=== PATIENT | female | born 1950 | race Caucasian/White ===

== ENCOUNTER 2020-01-12 15:46 | Outpatient (REF) | payer MEDICARE, MEDICAID, SELFPAY ==
[2020-01-12 17:35] LABS: Anion Gap 14 (12-20); Blood Urea Nitrogen 19 mg/dL (9-16); Calcium 9.5 mg/dL (8.4-10.2); Carbon Dioxide 27 mmol/L (22-29); Chloride 104 mmol/L (96-108); Estimated Glomerular Filt Rate 33; Phosphorus 3.7 mg/dL (2.7-4.5); Potassium 4.6 mmol/l (3.3-5.1); Sodium 140 mmol/L (135-145)
[2020-01-12 18:50] LABS: Renal w Reflex Lab Use Only Order verified
== END 2020-01-12 15:47 | disposition home or self-care (01) ==
LOC: HO.LAB 15:46
PROVIDERS: PCP Internal Medicine; Visit Provider Internal Medicine Nephrology
DX: Q61.3 Polycystic kidney, unspecified (principal); N18.30 Chronic kidney disease, stage 3 unspecified
CPT/HCPCS: 80051; 82310; 82565; 84100; 84520

== ENCOUNTER 2020-02-22 09:39 | Outpatient (REF) | payer MEDICARE, MEDICAID, SELFPAY ==
[2020-02-22 11:30] LABS: Hemoglobin 10.9 g/dl (12.0-16.0); Mean Corpuscular HGB Conc 32.1 g/dl (31.0-35.0); Mean Corpuscular Hemoglobin 31.4 pg (27.0-33.0); Mean Platelet Volume 9.2 fL (9.4-12.3); Platelet Count 234 X10*3/uL (160-400); Red Blood Count 3.47 X10*6/uL (4.20-5.50); Red Cell Distribution Width 11.9 % (11.0-16.0); White Blood Count 4.4 X10*3/uL (4.8-10.8)
[2020-02-22 12:01] LABS: Alanine Aminotransferase < 6 U/L (0-31); Albumin Level 4.1 g/dL (3.5-5.0); Alkaline Phosphatase 58 U/L (39-117); Anion Gap 10 (12-20); Aspartate Amino Transferase 20 U/L (5-31); Bilirubin Total 0.3 mg/dL (0.0-1.0); Blood Urea Nitrogen 17 mg/dL (9-16); Calcium 8.7 mg/dL (8.4-10.2); Carbon Dioxide 30 mmol/L (22-29); Chloride 105 mmol/L (96-108); Cholesterol 166 mg/dL; Estimated Glomerular Filt Rate 38; Glucose Fasting 87 mg/dL (60-99); HDL Cholesterol 69 mg/dL; Iron 78 mcg/dL (30-160); LDL Cholesterol Calculated 87 mg/dl; Percent Iron Saturation 23 % (15-50); Potassium 4.3 mmol/l (3.3-5.1); Sodium 141 mmol/L (135-145); Total Iron Binding Capacity 343 mcg/dL (228-428); Total Protein 6.3 g/dL (6.5-8.0); Triglycerides 51 mg/dL; Unsaturated Iron Binding 265 ug/dL
[2020-02-22 12:15] LABS: Thyroid Stimulating Hormone 0.68 uIU/mL (0.32-4.0)
== END 2020-02-22 09:40 | disposition home or self-care (01) ==
LOC: HO.HMGCLDS 09:39
PROVIDERS: PCP Internal Medicine; Visit Provider Internal Medicine
DX: E04.1 Nontoxic single thyroid nodule (principal); E78.5 Hyperlipidemia, unspecified; N18.30 Chronic kidney disease, stage 3 unspecified; Z00.00 Encounter for general adult medical examination without abnormal findings
CPT/HCPCS: 36415; 80053; 80061; 83540; 84443; 85027

== ENCOUNTER 2020-03-22 11:38 | Outpatient (REF) | payer MEDICARE, MEDICAID, SELFPAY ==
--- NOTE | 2020-03-22 11:43 | US_ITS ---
EXAMINATION: US THYROID CLINICAL INFORMATION: Nontoxic single thyroid nodule. COMPARISON: Ultrasound soft tissue head/neck thyroid dated 03/31/2012 and 02/27/2011. TECHNIQUE: Linear transducer davalos-scale and color Doppler examination with attention to the region of the thyroid. FINDINGS: SIZE: Measurements of the thyroid lobes and nodules are given in sagittal, anteroposterior and transverse dimensions respectively. Right Thyroid Lobe: 5.0 x 1.6 x 1.6 cm, volume 6.7 mL. Previously 4.6 x 1.7 x 1.2 cm, volume 4.9 mL. Parenchyma: The gland echotexture is heterogeneous. Thyroid vascularity is increased. Left Thyroid Lobe: 4.6 x 1.4 x 1.5 cm, volume 5.1 mL. Previously 4.3 x 1.4 x 1.5 cm, volume 4.7 mL. Parenchyma: The gland echotexture is heterogeneous. Thyroid vascularity is increased. Isthmus: 0.2 cm in maximum AP dimension. Previously 0.2 cm. RIGHT THYROID LOBE: There are 3 nodules seen. 1. Location: Superior. Size: 0.3 x 0.2 x 0.2 cm. This nodule is new. Nodule characteristics: Hypoechoic and cystic, smooth margin, no calcification and no intranodular flow. 2. Location: Middle/lateral. Size: 0.5 x 0.3 x 0.4 cm. This nodule is new. Nodule characteristics: Hypoechoic and heterogeneous, smooth margin, no calcification and positive intranodular flow. 3. Location: Middle. Size: 1.9 x 1.4 x 1.1 cm. Previous: 1.4 x 0.7 x 0.8 cm. Nodule characteristics: Hypoechoic and heterogeneous, irregular lobulated margins, calcification and positive intranodular flow. ISTHMUS: No nodules. LEFT THYROID LOBE: There are 2 nodules seen. 1. Location: Superior/lateral. Size: 0.5 x 0.3 x 0.3 cm. Previous: 0.3 x 0.2 x 0.2 cm. Nodule characteristics: Hypoechoic and heterogeneous, smooth margin, no calcification and positive intranodular flow. 2. Location: Superior/lateral. Size: 0.6 x 0.4 x 0.5 cm. Previous: 0.6 x 0.3 x 0.5 cm. Nodule characteristics: Slightly hypoechoic and heterogeneous, smooth margin, no calcification and positive intranodular flow. NODES: There is a right cervical lymph node inferior to the thyroid gland. This is normal in size measuring 0.8 x 0.7 x 0.3 cm in sagittal AP and transverse dimension. The cortex may be slightly thickened. This demonstrates both cortical and hilar flow. US/US thyroid IMPRESSION: Heterogeneous hypervascular thyroid gland. This is a new finding from 2013 exam and thyroiditis and Graves' disease should be considered. There is interval increase in size in the dominant nodule in the mid right lobe. This has suspicious ultrasound features and ultrasound-guided fine-needle aspiration is recommended. There is also a suspicious appearing right cervical lymph node. There are 2 small newly appreciated right thyroid nodules. Small left thyroid nodules are stable.
== END 2020-03-22 11:39 | disposition home or self-care (01) ==
LOC: HO.HMGCX 11:38
PROVIDERS: PCP Internal Medicine; Visit Provider Internal Medicine
DX: E04.1 Nontoxic single thyroid nodule (principal)
CPT/HCPCS: 76536

== ENCOUNTER 2020-05-02 15:22 | Outpatient (REF) | payer MEDICARE, MEDICAID, SELFPAY ==
--- NOTE | ~2020-05-02 | MM_ITS ---
EXAMINATION: MM SCREENING DIGITAL BREAST TOMOSYNTHESIS, BILATERAL CLINICAL INFORMATION: Screening. Asymptomatic. Benign left stereotactic biopsy 12/14/2014 (Core biopsies of breast with foci of columnar cell change with several associated microcalcifications). The lifetime risk of breast cancer based on the Tyrer-Cuzick Model is 8%. COMPARISON: Mammography: 06/26/2017, 12/14/2014, 12/02/2014. TECHNIQUE: Digital breast tomosynthesis is performed in both the craniocaudal and mediolateral oblique views along with computer-aided detection (CAD). Synthesized 2D images are generated from the tomosynthesis. FINDINGS: There are scattered areas of fibroglandular density (ACR BI-RADS breast composition Category b). There are no significant masses, abnormal calcifications, or other abnormalities. Parenchymal pattern is similar to prior studies. No developing density. There is biopsy clip marker again seen mid upper outer quadrant left breast. There are some new coarse calcifications posterior upper outer left breast. The axilla and skin contours are unremarkable. MM/MM tomosynthesis screening BI IMPRESSION: No mammographic evidence of malignancy. ASSESSMENT: BI-RADS 2: Benign RECOMMENDATION: Routine annual mammography screening. This patient's information was entered into a reminder system with a target due date for their next mammogram.
[2020-05-02 17:00] LABS: Anion Gap 11 (12-20); Blood Urea Nitrogen 18 mg/dL (9-16); Calcium 9.2 mg/dL (8.4-10.2); Carbon Dioxide 30 mmol/L (22-29); Chloride 105 mmol/L (96-108); Estimated Glomerular Filt Rate 40; Phosphorus 3.6 mg/dL (2.7-4.5); Potassium 3.9 mmol/L (3.3-5.1); Sodium 142 mmol/L (135-145)
[2020-05-02 18:03] LABS: Renal w Reflex Lab Use Only Order verified
== END 2020-05-02 15:23 | disposition home or self-care (01) ==
LOC: HO.MAMMO 15:22
PROVIDERS: Absent Provider Internal Medicine Nephrology; PCP Internal Medicine; Visit Provider Internal Medicine
DX: N18.30 Chronic kidney disease, stage 3 unspecified (principal); Q61.3 Polycystic kidney, unspecified; Z12.31 Encounter for screening mammogram for malignant neoplasm of breast
CPT/HCPCS: 36415; 77063; 77067; 80051; 82310; 82565; 84100; 84520

== ENCOUNTER → 2020-06-06 10:19 | Outpatient (BNVA) | payer MEDICARE, MEDICAID, SELFPAY | PROVIDERS: PCP Internal Medicine; Referring Provider Internal Medicine; Visit Provider Internal Medicine | DX: Z13.89 Encounter for screening for other disorder (principal) | CPT/HCPCS: Q3014 ==

== ENCOUNTER 2020-08-18 08:36 | Outpatient (REF) | payer MEDICARE, MEDICAID, SELFPAY ==
[2020-08-18 09:29] LABS: Calcium 9.6 mg/dL (8.4-10.2); Estimated Glomerular Filt Rate 36
[2020-08-18 09:55] LABS: Free T4 (Free Thyroxine) 0.86 ng/dL (0.71-1.85); Thyroid Stimulating Hormone 0.63 uIU/mL (0.32-4.0); Vitamin D 25-OH Total 18.9 ng/mL (>30)
[2020-08-19 15:57] LABS: Calcium (PTHI) 9.7 mg/dL (8.6-10.4); PTHI 107 pg/mL (14-64)
== END 2020-08-18 08:37 | disposition home or self-care (01) ==
LOC: HO.LAB 08:36
PROVIDERS: PCP Internal Medicine; Visit Provider Internal Medicine
DX: E04.2 Nontoxic multinodular goiter (principal); E55.9 Vitamin D deficiency, unspecified
CPT/HCPCS: 36415; 82040; 82306; 82310; 82565; 83970; 84439; 84443

== ENCOUNTER 2020-08-23 12:59 | Outpatient (REF) | payer MEDICARE, MEDICAID, SELFPAY ==
--- NOTE | ~2020-08-23 | US_ITS ---
EXAMINATION: THYROID FINE-NEEDLE ASPIRATION CLINICAL INFORMATION: Right thyroid nodule COMPARISON: Previous thyroid ultrasound March 2020 TECHNIQUE: Procedure and risks and benefits including bleeding and infection were discussed with the patient and informed consent was obtained. The right neck was prepped and draped in the usual sterile fashion. The skin and soft tissues were anesthetized with 1% lidocaine plain. Using ultrasound guidance and a 25-gauge needle, 3 25-gauge FNA specimens from the dominant nodule in the mid right lobe of the thyroid gland were obtained. FINDINGS: There is a 1.5 x 1.5 x 0.8 cm nodule in the mid right lobe that was targeted for fine-needle aspiration. US/US guided fine needle asp IMPRESSION: Ultrasound-guided right thyroid nodule fine-needle aspiration.
[2020-08-23] MEDS: Lidocaine HCl 1 % MPF 5 ML VIAL SUBCUT (14:23)
== END 2020-08-23 13:00 | disposition home or self-care (01) ==
LOC: HO.US 12:59
PROVIDERS: Visit Provider Internal Medicine
DX: E04.2 Nontoxic multinodular goiter (principal)
CPT/HCPCS: 10005; 88172; 88173; 88177

== ENCOUNTER → 2020-10-06 14:37 | Outpatient (BNVA) | payer MEDICARE, MEDICAID, SELFPAY | PROVIDERS: PCP Internal Medicine; Visit Provider Internal Medicine | DX: E04.2 Nontoxic multinodular goiter (principal) | CPT/HCPCS: Q3014 ==

== ENCOUNTER 2020-12-21 13:32 | Outpatient (REF) | payer MEDICARE, MEDICAID, SELFPAY ==
[2020-12-21 16:33] LABS: MANUAL DIFF FLAG NO
[2020-12-21 16:37] LABS: Basophils Percent Auto 0.9 % (0-2); Eosinophils Absolute Auto 0.2 X10*3/uL (0.0-0.4); Eosinophils Percent Auto 3.9 % (0-4); Hematocrit 35.2 % (37-47); Hemoglobin 11.6 g/dl (12.0-16.0); Imm Gran Abs Auto 0.02 X10*3/uL (0.00-0.03); Imm Gran Pct Auto 0.4 % (0.0-0.4); Lymphocytes Absolute Auto 0.9 X10*3/uL (1.2-4.9); Mean Corpuscular Hemoglobin 31.7 pg (27.0-33.0); Mean Corpuscular Volume 96.2 fL (80-98); Mean Platelet Volume 10.1 fL (9.4-12.3); Monocytes Absolute Auto 0.4 X10*3/uL (0.1-1.2); Monocytes Percent Auto 8.5 % (2-11); Neutrophils Absolute Auto 3.1 X10*3/uL (2.0-8.3); Neutrophils Percent Auto 66.3 % (45-73); Platelet Count 251 X10*3/uL (160-400); Red Blood Count 3.66 X10*6/uL (4.20-5.50); Red Cell Distribution Width 11.9 % (11.0-16.0); White Blood Count 4.6 X10*3/uL (4.8-10.8)
== END 2020-12-21 13:33 | disposition home or self-care (01) ==
LOC: HO.HMGCLDS 13:32
PROVIDERS: PCP Internal Medicine; Visit Provider Internal Medicine
DX: D64.9 Anemia, unspecified (principal)
CPT/HCPCS: 36415; 85025

== ENCOUNTER 2021-04-26 15:18 | Outpatient (REF) | payer MEDICARE, MEDICAID, SELFPAY ==
[2021-04-26 15:41] LABS: Binax Internal Control QC Valid; Binax Now Covid-19 Ag Negative (Negative)
== END 2021-04-26 15:19 | disposition home or self-care (01) ==
LOC: HO.HMGCLDS 15:18
PROVIDERS: Visit Provider Physician Assistant
DX: Z13.89 Encounter for screening for other disorder (principal)

== ENCOUNTER → 2021-05-04 14:44 | Outpatient (BNVA) | payer MEDICARE, MEDICAID, SELFPAY | PROVIDERS: PCP Internal Medicine; Visit Provider Psychiatry & Neurology Neurology | DX: G20 Parkinson's disease (principal); G47.10 Hypersomnia, unspecified; Z79.899 Other long term (current) drug therapy | CPT/HCPCS: 99212 ==

== ENCOUNTER 2021-05-17 13:20 | Outpatient (REF) | payer MEDICARE, MEDICAID, SELFPAY ==
--- NOTE | ~2021-05-17 | XR_ITS ---
EXAMINATION: XR FOOT, RIGHT CLINICAL INFORMATION: Contusion COMPARISON: None TECHNIQUE: AP, lateral, and oblique views of the right foot. FINDINGS: The bones are osteopenic. Bone alignment is normal. No fracture or dislocation is seen. The joint spaces are normal. There are small calcaneal spurs. XR/XR foot RT min 3V IMPRESSION: No fracture or dislocation seen.
== END 2021-05-17 13:21 | disposition home or self-care (01) ==
LOC: HO.HMGCX 13:20
PROVIDERS: Visit Provider Internal Medicine
DX: S90.31XA Contusion of right foot, initial encounter (principal)
CPT/HCPCS: 73630

== ENCOUNTER 2021-05-31 | Outpatient (REF) | payer MEDICARE, MEDICAID, SELFPAY ==
--- NOTE | ~2021-05-31 | FL_ITS ---
EXAMINATION: MODIFIED BARIUM SWALLOW CLINICAL INFORMATION: Dysphagia. COMPARISON: None TECHNIQUE: Routine modified barium swallow was performed under lateral fluoroscopy in presence of speech therapist. FINDINGS: Following oral administration of various consistencies of food coated with barium in presence of speech therapist under lateral fluoroscopy there is normal propagation of food from the oral cavity through the pharynx into esophagus without any evidence of obstruction, narrowing or stricture. No laryngeal penetration or aspiration seen. FLUOROSCOPY TIME: 1.2 minutes. DOSE AREA PRODUCT: 0.592 uGy-m2 (microgray-meter squared). FL/FL barium swallow modified IMPRESSION: Unremarkable modified barium swallow. Correlate with speech therapy results.
--- NOTE | 2021-06-01 10:27 | MHC.SL.IMP ---
Date of Plan of Treatment: 05/31/21 Onset of Symptoms/Illness: 04/02/21 Date Treatment Started: 05/31/21 Admitting Diagnosis: Comorbidities: Anemia Back pain Chronic fatigue COPD Depression Fibromyalgia GERD Hyperlipemia IBS Parkinson?s disease Sciatica Stage 3 chronic kidney disease Thyroid nodule Tremor Hyperparathyroidism Polycystic kidney disease PTSD Sleep d/o Uterine cx Vitamin D deficiency SURGICAL HX: Colonoscopy Carpal tunnel syndrome Left breast biopsy Sinus surgery Total abdominal hysterectomy Cholecystecomy Primary Speech & Language Diagnosis: R13.12 Oropharyngeal Phase Dysphagia Secondary Speech & Language Diagnosis: R49.0 Dysphonia Reason for Today's Visit: 45288 Modified Barium Swallow Study Pre-evaluation Dietary Consistencies: Regular Pre-evaluation Liquid Consistency: Thin Pre-evaluation Medication Administration: Whole with Liquid Medical History: [place], [place] Modified Barium Swallow Study Fluoroscopic Evaluation of Swallowing Function CPT Code 12693 Evaluation Year: 2021 Reason for Study: Patient reports globus sensation and coughing when eating. Referring Physician: Lien Booker DO Evaluating Clinician: Suma Bentley MA, CCC-CUSTOMER SERVICE DISPATCHER Study Number: 1 Patient Name: Lien Jerry Status: Outpatient, Ambulatory/Assisted Age: 70 Gender: Female MEDICAL HISTORY: Year of Onset or Diagnosis: 2021 Comorbidities: Anemia Back pain Chronic fatigue COPD Depression Fibromyalgia GERD Hyperlipemia IBS Parkinson?s disease Sciatica Stage 3 chronic kidney disease Thyroid nodule Tremor Hyperparathyroidism Polycystic kidney disease PTSD Sleep d/o Uterine cx Vitamin D deficiency SURGICAL HX: Colonoscopy Carpal tunnel syndrome Left breast biopsy Sinus surgery Total abdominal hysterectomy Cholecystecomy Current (pre-evaluation) Intake/Diet: Route: PO Diet Grade: Regular Liquid Consistencies: Thin Pre-Study Functional Oral Intake Scale (FOIS): 7- Total oral intake with no restrictions Pain: Unable to assess reported at time of study, SUBJECTIVE: Patient is a 70 year old female referred by Lien Booker DO from [facility] for a modified barium swallow study. Patient?s history is significant for COPD, fibromyalgia, GERD, thyroid nodule, and Parkinson?s disease. Patient reports globus sensation with consumption of solids, as well as coughing episodes. Patient reported that she is able to breathe during these episodes, but must drink water to get the food down. Patient reports a sore throat and intermittent pain when swallowing. Patient did not rate this pain and stated that it was ?minimal.? She reports onset of dysphagia 2 months ago. Oral Motor Exam Mouth Occlusion: Normal Oral-Facial Teeth Characteristics: Intact/Normal Oral-Facial Lip Pucker Description: Normal Oral-Facial Puff Cheeks Description: Normal Tongue Size: Normal Tongue Excursion Description: Normal Tongue Range of Movement Description: Normal Tongue Speed of Movement Description: Normal Tongue Strength of Movement (against opposing pressure): Normal Is patient able to manage secretions?: Yes Food and Liquid Trials: Oral Impairment: Lip Closure: 0=No labial escape Oral Impairment: Tongue Control During Bolus Hold: 1=Escape to lateral buccal cavity/floor of mouth (FOM) Oral Impairment: Bolus Preparation/Mastication: 1=Slow prolonged chewing/mashing with complete re-collection Oral Impairment: Bolus Transport/Lingual Motion: 2=Slowed tongue motion Oral Impairment: Oral Residue: 2=Residue collection on oral structures Oral Impairment:Initiation of Pharyngeal Swallow: 3=Bolus head in pyriforms Pharyngeal Impairment: Soft Palate Elevation: 0=No bolus between soft palate (SP)/pharyngeal wall (PW) Pharyngeal Impairment: Laryngeal Elevation: 1=Partial thyroid cartilage/arytenoids to epiglottic petiole movement Pharyngeal Impairment: Anterior Hyoid Excursion: 1=Partial anterior movement Pharyngeal Impairment: Epiglottic Movement: 0=Complete inversion Pharyngeal Impairment: Laryngeal Vestibular Closure:: 0=Complete: no air/contrast in laryngeal vestibule Pharyngeal Impairment: Pharyngeal Stripping Wave: 1=Present: diminished Pharyngeal Impairment: Pharyngeal Contraction: Did not test Pharyngeal Impairment: Pharyngoesophageal Segment Openin=Complete distension and complete duration: no obstruction of flow Pharyngeal Impairment: Tongue Base (TB) Retraction: 3=Wide column of contrast/air between TB and posterior PW Pharyngeal Impairment: Pharyngeal Residue: 1=Trace residue within or on pharyngeal structures Pharyngeal Impairment: Esophageal Clearance Upright Position: Did not test Impressions and Recommendations Clinical Observations: OBJECTIVE: Time-out: performed at 02:45 Evaluation Start: 02:30; Stop: 02:40 Patient Positioning: Seated 70-90 degrees Viewing Planes: LATERAL ONLY Contrast: MBSImP? Standardized Protocol using commercially prepared, standardized Barium viscosities, including: Varibar? THIN LIQUID (40% w/v, <15 cps) , 1/2 Shortbread Cookie (1 x1 x.25 ) MBSImP ID: [id number] MBSImP Results: Lip closure for intraoral bolus containment resulted in no labial escape. Tongue control during bolus hold allowed bolus escape to the lateral buccal cavity/floor of mouth. Bolus preparation and mastication resulted in slow, prolonged chewing/mashing but with complete re-collection. Bolus transport/lingual motion was with slowed tongue motion. Oral residue was a collection on oral structures. Initiation of the pharyngeal swallow occurred when the bolus head was in the pyriform sinuses. Soft palate elevation resulted in no bolus between the soft palate and the pharyngeal wall. Laryngeal elevation was decreased, with partial superior movement of the thyroid cartilage/partial approximation of the arytenoids to the epiglottic petiole. Anterior hyoid excursion demonstrated partial anterior movement. Epiglottic movement resulted in complete inversion. Laryngeal vestibular closure was complete, as indicated by no air or contrast within the laryngeal vestibule at the height of the swallow. Pharyngeal stripping wave was present, but diminished. Pharyngeal contraction could not be determined due to logistical reasons not related to physiologic impairment. Pharyngoesophageal segment opening was completely distended for complete duration with no obstruction of bolus flow. Tongue base retraction allowed a wide column of contrast or air between the retracted tongue base and the posterior pharyngeal wall. Pharyngeal residue was a trace within or on pharyngeal structures. Esophageal clearance in the upright position could not be assessed due to logistical reasons not related to physiologic impairment. Oral Impairment Score: 9 Pharyngeal Impairment Score: 6 (absence of score, component 13) Esophageal Impairment Score: --- (absence of score, component 17) Laryngeal Penetration and Aspiration: Neither penetration nor aspiration was observed in today's study with Flakita Thin. ASSESSMENT: This exam was conducted by a multidisciplinary team which included a speech pathologist, radiologist, and biological lab technician. Patient was seated upright at 90 degrees for lateral view only. Patient trialed the following liquid and solid consistencies: 5 mL thin liquid barium, individual cup sip with bolus hold thin liquid barium, consecutive cup sips thin liquid barium, pureed solid (mixture applesauce with barium paste), ground solid (mixture chicken salad with barium paste), and regular solid (Raven Doone cookie coated with barium paste). Patient displayed good labial seal with no interlabial escape of bolus. Trace amount of liquid escaped to the floor of mouth, but did not escape posteriorly prior to swallow trigger. Patient demonstrated slow, prolonged mastication and slowed posterior tongue movement. There was mild oral residue on tongue blade and tongue base, which cleared with subsequent dry swallow. Pharyngeal swallow trigger was delayed, initiated as bolus head reached pyriform sinuses. No nasopharyngeal reflux. Partial laryngeal elevation and partial anterior hyoid movement. Epiglottic inversion was complete. Laryngeal vestibular closure was complete. No evidence of aspiration or penetration with solids and liquids during this exam. Reduced tongue base retraction. Trace residue on tongue base and posterior pharyngeal wall, otherwise good pharyngeal clearance. No obstruction of flow through pharyngoesophageal segment opening. Liquid Intake Recommendation: Thin Liquid Intake Strategies: Small Sips Dietary Recommendations: Regular Medication Administration: Whole with Liquid Please contact the pharmacy regarding appropriate crushable or liquid drug formulations that are available whenever modified delivery is recommended. Compensatory Strategies Recommended: Sitting Upright (90 deg) Double Swallow Small Bites and Sips Alternate Liquids/Solids Rate of Ingestion Change Supervision during eating and or drinking: Intermittent Supervision Recommendation for Speech Therapy: NA:Typical Evaluation PLAN: Intake Recommendations: Route: PO Diet Grade: Regular Liquid Consistencies: Thin Post-Study Functional Oral Intake Scale (FOIS): 7- Total oral intake with no restrictions No evidence of aspiration or penetration during this exam. Noted mild oral and pharyngeal residue, which did clear with dry swallow. Recommend patient to resume unmodified textures REGULAR solids and THIN liquids with the following strategies: -small bites -moisten food with sauce/gravy as needed -alternate bite of food with sip of liquid -dry swallow between bites as needed -upright 90 degree position while eating and drinking Given progressive nature of underlying neurological condition, Parkinson's disease, recommend patient to continue monitoring dysphagia. Therapy Recommendations: Therapy will be discontinued Prognosis for Improvement: The prognosis for the patient to meet nutritional needs by mouth is excellent based on degree of impairment. Breakfast Bar Attendant Clinician/Clinical Fellow: No Supervisory Statement: N/A Speech Language Pathologist: Suma Bentley M.A., CCC-CUSTOMER SERVICE DISPATCHER
--- NOTE | 2021-06-01 10:30 | MHC.SL.IMP ---
Date of Plan of Treatment: 05/31/21 Onset of Symptoms/Illness: 04/02/21 Date Treatment Started: 05/31/21 Admitting Diagnosis: Comorbidities: Anemia Back pain Chronic fatigue COPD Depression Fibromyalgia GERD Hyperlipemia IBS Parkinson?s disease Sciatica Stage 3 chronic kidney disease Thyroid nodule Tremor Hyperparathyroidism Polycystic kidney disease PTSD Sleep d/o Uterine cx Vitamin D deficiency SURGICAL HX: Colonoscopy Carpal tunnel syndrome Left breast biopsy Sinus surgery Total abdominal hysterectomy Cholecystecomy Primary Speech & Language Diagnosis: R13.12 Oropharyngeal Phase Dysphagia Secondary Speech & Language Diagnosis: R49.0 Dysphonia Reason for Today's Visit: 34419 Modified Barium Swallow Study Pre-evaluation Dietary Consistencies: Regular Pre-evaluation Liquid Consistency: Thin Pre-evaluation Medication Administration: Whole with Liquid Medical History: [place], [place] Modified Barium Swallow Study Fluoroscopic Evaluation of Swallowing Function CPT Code 87301 Evaluation Year: 2021 Reason for Study: Patient reports globus sensation and coughing when eating. Referring Physician: Lien Booker DO Evaluating Clinician: Suma Bentley MA, CCC-TRUCKLOAD OWNER OPERATOR Study Number: 1 Patient Name: Lien Jerry Status: Outpatient, Ambulatory/Assisted Age: 70 Gender: Female MEDICAL HISTORY: Year of Onset or Diagnosis: 2021 Comorbidities: Anemia Back pain Chronic fatigue COPD Depression Fibromyalgia GERD Hyperlipemia IBS Parkinson?s disease Sciatica Stage 3 chronic kidney disease Thyroid nodule Tremor Hyperparathyroidism Polycystic kidney disease PTSD Sleep d/o Uterine cx Vitamin D deficiency SURGICAL HX: Colonoscopy Carpal tunnel syndrome Left breast biopsy Sinus surgery Total abdominal hysterectomy Cholecystecomy Current (pre-evaluation) Intake/Diet: Route: PO Diet Grade: Regular Liquid Consistencies: Thin Pre-Study Functional Oral Intake Scale (FOIS): 7- Total oral intake with no restrictions Pain: Unable to assess reported at time of study, SUBJECTIVE: Patient is a 70 year old female referred by Lien Booker DO from [facility] Endocr[facility]ology for a modified barium swallow study. Patient?s history is significant for COPD, fibromyalgia, GERD, thyroid nodule, and Parkinson?s disease. Patient reports globus sensation with consumption of solids, as well as coughing episodes. Patient reported that she is able to breathe during these episodes, but must drink water to get the food down. Patient reports a sore throat and intermittent pain when swallowing. Patient did not rate this pain and stated that it was ?minimal.? She reports onset of dysphagia 2 months ago. Oral Motor Exam Mouth Occlusion: Normal Oral-Facial Teeth Characteristics: Intact/Normal Oral-Facial Lip Pucker Description: Normal Oral-Facial Puff Cheeks Description: Normal Tongue Size: Normal Tongue Excursion Description: Normal Tongue Range of Movement Description: Normal Tongue Speed of Movement Description: Normal Tongue Strength of Movement (against opposing pressure): Normal Is patient able to manage secretions?: Yes Food and Liquid Trials: Oral Impairment: Lip Closure: 0=No labial escape Oral Impairment: Tongue Control During Bolus Hold: 1=Escape to lateral buccal cavity/floor of mouth (FOM) Oral Impairment: Bolus Preparation/Mastication: 1=Slow prolonged chewing/mashing with complete re-collection Oral Impairment: Bolus Transport/Lingual Motion: 2=Slowed tongue motion Oral Impairment: Oral Residue: 2=Residue collection on oral structures Oral Impairment:Initiation of Pharyngeal Swallow: 3=Bolus head in pyriforms Pharyngeal Impairment: Soft Palate Elevation: 0=No bolus between soft palate (SP)/pharyngeal wall (PW) Pharyngeal Impairment: Laryngeal Elevation: 1=Partial thyroid cartilage/arytenoids to epiglottic petiole movement Pharyngeal Impairment: Anterior Hyoid Excursion: 1=Partial anterior movement Pharyngeal Impairment: Epiglottic Movement: 0=Complete inversion Pharyngeal Impairment: Laryngeal Vestibular Closure:: 0=Complete: no air/contrast in laryngeal vestibule Pharyngeal Impairment: Pharyngeal Stripping Wave: 1=Present: diminished Pharyngeal Impairment: Pharyngeal Contraction: Did not test Pharyngeal Impairment: Pharyngoesophageal Segment Openin=Complete distension and complete duration: no obstruction of flow Pharyngeal Impairment: Tongue Base (TB) Retraction: 3=Wide column of contrast/air between TB and posterior PW Pharyngeal Impairment: Pharyngeal Residue: 1=Trace residue within or on pharyngeal structures Pharyngeal Impairment: Esophageal Clearance Upright Position: Did not test Impressions and Recommendations Clinical Observations: OBJECTIVE: Time-out: performed at 02:45 Evaluation Start: 02:30; Stop: 02:40 Patient Positioning: Seated 70-90 degrees Viewing Planes: LATERAL ONLY Contrast: MBSImP? Standardized Protocol using commercially prepared, standardized Barium viscosities, including: Varibar? THIN LIQUID (40% w/v, <15 cps) , 1/2 Shortbread Cookie (1 x1 x.25 ) MBSImP ID: [id number] MBSImP Results: Lip closure for intraoral bolus containment resulted in no labial escape. Tongue control during bolus hold allowed bolus escape to the lateral buccal cavity/floor of mouth. Bolus preparation and mastication resulted in slow, prolonged chewing/mashing but with complete re-collection. Bolus transport/lingual motion was with slowed tongue motion. Oral residue was a collection on oral structures. Initiation of the pharyngeal swallow occurred when the bolus head was in the pyriform sinuses. Soft palate elevation resulted in no bolus between the soft palate and the pharyngeal wall. Laryngeal elevation was decreased, with partial superior movement of the thyroid cartilage/partial approximation of the arytenoids to the epiglottic petiole. Anterior hyoid excursion demonstrated partial anterior movement. Epiglottic movement resulted in complete inversion. Laryngeal vestibular closure was complete, as indicated by no air or contrast within the laryngeal vestibule at the height of the swallow. Pharyngeal stripping wave was present, but diminished. Pharyngeal contraction could not be determined due to logistical reasons not related to physiologic impairment. Pharyngoesophageal segment opening was completely distended for complete duration with no obstruction of bolus flow. Tongue base retraction allowed a wide column of contrast or air between the retracted tongue base and the posterior pharyngeal wall. Pharyngeal residue was a trace within or on pharyngeal structures. Esophageal clearance in the upright position could not be assessed due to logistical reasons not related to physiologic impairment. Oral Impairment Score: 9 Pharyngeal Impairment Score: 6 (absence of score, component 13) Esophageal Impairment Score: --- (absence of score, component 17) Laryngeal Penetration and Aspiration: Neither penetration nor aspiration was observed in today's study with Flakita Thin. ASSESSMENT: This exam was conducted by a multidisciplinary team which included a speech pathologist, radiologist, and satellite dish technician. Patient was seated upright at 90 degrees for lateral view only. Patient trialed the following liquid and solid consistencies: 5 mL thin liquid barium, individual cup sip with bolus hold thin liquid barium, consecutive cup sips thin liquid barium, pureed solid (mixture applesauce with barium paste), ground solid (mixture chicken salad with barium paste), and regular solid (Raven Doone cookie coated with barium paste). Patient displayed good labial seal with no interlabial escape of bolus. Trace amount of liquid escaped to the floor of mouth, but did not escape posteriorly prior to swallow trigger. Patient demonstrated slow, prolonged mastication and slowed posterior tongue movement. There was mild oral residue on tongue blade and tongue base, which cleared with subsequent dry swallow. Pharyngeal swallow trigger was delayed, initiated as bolus head reached pyriform sinuses. No nasopharyngeal reflux. Partial laryngeal elevation and partial anterior hyoid movement. Epiglottic inversion was complete. Laryngeal vestibular closure was complete. No evidence of aspiration or penetration with solids and liquids during this exam. Reduced tongue base retraction. Trace residue on tongue base and posterior pharyngeal wall, otherwise good pharyngeal clearance. No obstruction of flow through pharyngoesophageal segment opening. Liquid Intake Recommendation: Thin Liquid Intake Strategies: Small Sips Dietary Recommendations: Regular Medication Administration: Whole with Liquid Please contact the pharmacy regarding appropriate crushable or liquid drug formulations that are available whenever modified delivery is recommended. Compensatory Strategies Recommended: Sitting Upright (90 deg) Double Swallow Small Bites and Sips Alternate Liquids/Solids Rate of Ingestion Change Supervision during eating and or drinking: Intermittent Supervision Recommendation for Speech Therapy: NA:Typical Evaluation Text Comment: PLAN: Intake Recommendations: Route: PO Diet Grade: Regular Liquid Consistencies: Thin Post-Study Functional Oral Intake Scale (FOIS): 7- Total oral intake with no restrictions No evidence of aspiration or penetration during this exam. Noted mild oral and pharyngeal residue, which did clear with dry swallow. Recommend patient to resume unmodified textures REGULAR solids and THIN liquids with the following strategies: -small bites -moisten food with sauce/gravy as needed -alternate bite of food with sip of liquid -dry swallow between bites as needed -upright 90 degree position while eating and drinking Given progressive nature of underlying neurological condition, Parkinson's disease, recommend patient to continue monitoring dysphagia. Therapy Recommendations: Therapy will be discontinued Prognosis for Improvement: The prognosis for the patient to meet nutritional needs by mouth is excellent based on degree of impairment. Clinician - Supplemental, Miscellaneous Communication: It is important to note MBSS objective studies are snapshots in time and Patient function might vary with factors such as time of day or concomitant medical conditions. For this reason, the final treatment plan for this patient should rest with their medical care team. Additional recommendations should be considered with the totality of the Patient in mind. Thank for the opportunity to participate in the care of this patient. If you have any questions about the content of this report, please contact the [facility] at [facility]. Education: Education regarding findings from today's study and plans for therapy were provided to Patient only through Verbal Instruction. Understanding was expressed by the Patient only. Counseling Services Director Clinician/Clinical Fellow: No Supervisory Statement: N/A Speech Language Pathologist: Suma Bentley M.A., [facility]-TRUCKLOAD OWNER OPERATOR
== END 2021-05-31 00:01 ==
LOC: HO.XRAY
PROVIDERS: Visit Provider Internal Medicine
DX: R13.10 Dysphagia, unspecified (principal)
CPT/HCPCS: 74230; 92611

== ENCOUNTER → 2021-06-05 11:38 | Outpatient (BNVA) | payer MEDICARE, MEDICAID, SELFPAY | PROVIDERS: PCP Internal Medicine; Visit Provider Internal Medicine | DX: E04.2 Nontoxic multinodular goiter (principal); E21.3 Hyperparathyroidism, unspecified; E55.9 Vitamin D deficiency, unspecified; R13.10 Dysphagia, unspecified | CPT/HCPCS: Q3014 ==

== ENCOUNTER 2021-06-23 09:38 | Day surgery (SDC) | payer MEDICARE, MEDICAID, SELFPAY ==
[2021-06-19 12:44] VITALS: BMI 24.2
--- NOTE | 2021-06-22 09:55 | P.CONAN_ITS ---
Documented by User: Dorcas Edwards NP 06/22/21 09:59 HPI - Anesthesia Eval Consult details Narrative: 70yo F for Upper Endoscopy and Colonoscopy PMFSH Active Problems Active Problems: All Active Problems (Updated 05/17/21 @ 13:16 by Dennis De Oliveira MD) Vitamin D deficiency (Acute) Environmental allergies (Acute) Contusion of foot, right (Acute) Sleep disorder (Acute) Anemia (Acute) COPD (chronic obstructive pulmonary disease) (Acute) CKD (chronic kidney disease), stage III (Acute) Family history of breast cancer in mother (Acute) PTSD (post-traumatic stress disorder) (Acute) Vitamin D deficiency (Acute) Hyperparathyroidism (Acute) Family history of malignant neoplasm of endometrium (Acute) Multinodular thyroid (Acute) Parkinsons disease (Acute) Depression (Acute) Hyperlipemia (Acute) Back pain (Acute) Past Medical History Medical History Anemia Back pain Chronic fatigue CKD (chronic kidney disease), stage III COPD (chronic obstructive pulmonary disease) Depression Family history of breast cancer in mother Family history of malignant neoplasm of endometrium Fibromyalgia GERD (gastroesophageal reflux disease) Hyperlipemia Hyperparathyroidism IBS (irritable bowel syndrome) Multinodular thyroid Parkinsons disease Polycystic kidney disease PTSD (post-traumatic stress disorder) Sciatica of left side Sciatica of right side Sleep disorder Stage 3 chronic kidney disease Thyroid nodule Tremor Uterine cancer Vitamin D deficiency Family History Family History Father COPD (chronic obstructive pulmonary disease) Mother Arteriosclerosis Breast cancer, Onset Age: 80 Sister Diabetes mellitus Breast cancer, Onset Age: 70 Brother Bone cancer History of pituitary cancer Surgical History Surgical History (Updated 06/19/21 @ 12:38 by Sho To RN) H/O colonoscopy History of carpal tunnel syndrome History of esophagogastroduodenoscopy (EGD) History of left breast biopsy History of sinus surgery History of total abdominal hysterectomy Hx laparoscopic cholecystectomy Hx of cholecystectomy Social History Social History Household Members: None Housing: House Alcohol intake: never Patient Tobacco Use Status: Never used Tobacco Advance Directives: No (unknown) Advance Directives Information Provided: Yes (brochure mailed) Advance Directives on File: No service: No Current occupational status: employed Meds Allergies Allergy/AdvReac Type Severity Reaction Status Date / Time tomato [TOMATO] Allergy Severe ANAPHYLAXIS Verified 06/19/21 12:45 Sulfa (Sulfonamide Allergy Intermediate TRAVIS davis Verified 06/19/21 12:45 Antibiotics) albuterol Allergy Unknown Unknown Verified 06/05/21 11:55 metoclopramide [Reglan] Allergy Unknown Unknown Verified 06/05/21 11:55 Home Medications Medication Instructions Recorded Confirmed Last Taken Type bupropion HCl 300 mg 24 hr tablet, 300 mg PO QAM 02/22/20 06/19/21 06/23/21 History extended release clonazepam 1 mg tablet 1 mg PO TID 02/22/20 06/19/21 06/23/21 History gabapentin 100 mg capsule 100 mg PO BEDTIME 02/22/20 06/19/21 Unknown History pneumoc 13-ani conj-dip cr(PF) 0.5 ml IM 02/22/20 06/05/21 Unknown History mL IM syringe paroxetine HCl 30 mg tablet 30 mg PO DAILY 10/06/20 06/19/21 06/23/21 History ipratropium bromide 17 1 puff INHALATION QID 06/19/21 06/19/21 Unknown History mcg/actuation HFA aerosol inhaler (Atrovent HFA) Exam Exam Date and Time: June 22, 2021 0955 Height,Weight and Vital Signs: Height 5 ft 6 in Weight 68.039 kg Assessment and Plan Assessment Anesthesia Assessment: Chart Reviewed Documented by User: Edward Boone MD 06/23/21 10:00 [facility] Past Medical History Medical History Anemia Back pain Chronic fatigue CKD (chronic kidney disease), stage III COPD (chronic obstructive pulmonary disease) Depression Family history of breast cancer in mother Family history of malignant neoplasm of endometrium Fibromyalgia GERD (gastroesophageal reflux disease) Hyperlipemia Hyperparathyroidism IBS (irritable bowel syndrome) Multinodular thyroid Parkinsons disease Polycystic kidney disease PTSD (post-traumatic stress disorder) Sciatica of left side Sciatica of right side Sleep disorder Stage 3 chronic kidney disease Thyroid nodule Tremor Uterine cancer Vitamin D deficiency Family History Family History Father COPD (chronic obstructive pulmonary disease) Mother Arteriosclerosis Breast cancer, Onset Age: 80 Sister Diabetes mellitus Breast cancer, Onset Age: 70 Brother Bone cancer History of pituitary cancer Family history of problems with anesthesia: No Surgical History Surgical History (Updated 06/19/21 @ 12:38 by Sho To RN) H/O colonoscopy History of carpal tunnel syndrome History of esophagogastroduodenoscopy (EGD) History of left breast biopsy History of sinus surgery History of total abdominal hysterectomy Hx laparoscopic cholecystectomy Hx of cholecystectomy History of Problems with Anesthesia: No Social History Social History Household Members: None Housing: House Alcohol intake: never Patient Tobacco Use Status: Never used Tobacco Advance Directives: No (unknown) Advance Directives Information Provided: Yes (brochure mailed) Advance Directives on File: No service: No Current occupational status: employed Meds Allergies Allergy/AdvReac Type Severity Reaction Status Date / Time tomato [TOMATO] Allergy Severe ANAPHYLAXIS Verified 06/19/21 12:45 Sulfa (Sulfonamide Allergy Intermediate shaky, ROBLES Verified 06/19/21 12:45 Antibiotics) albuterol Allergy Unknown Unknown Verified 06/05/21 11:55 metoclopramide [Reglan] Allergy Unknown Unknown Verified 06/05/21 11:55 Home Medications Medication Instructions Recorded Confirmed Last Taken Type bupropion HCl 300 mg 24 hr tablet, 300 mg PO QAM 02/22/20 06/19/21 06/23/21 History extended release clonazepam 1 mg tablet 1 mg PO TID 02/22/20 06/19/21 06/23/21 History gabapentin 100 mg capsule 100 mg PO BEDTIME 02/22/20 06/19/21 Unknown History pneumoc 13-ani conj-dip cr(PF) 0.5 ml IM 02/22/20 06/05/21 Unknown History mL IM syringe paroxetine HCl 30 mg tablet 30 mg PO DAILY 10/06/20 06/19/21 06/23/21 History ipratropium bromide 17 1 puff INHALATION QID 06/19/21 06/19/21 Unknown History mcg/actuation HFA aerosol inhaler (Atrovent HFA) Exam Airway Mallampati Class: II TM Dist: >3cm Neck ROM: Full Assessment and Plan Assessment Anesthesia Assessment: Anesthesia Plan Discussed Final Anesthetic Review Family History of Problems with Anesthesia: No History of Problems with Anesthesia: No NPO: Yes ASA Class: III Final Preanesthetic Review: No Changes in Pt Med Stat, Meds/Allgs Chart Reviewed, Consent Obtained/Reviewed and Anes Risks/Benef Reviewed Patient Risk: Intermediate Procedure Risk: Low Anesthetic Plan Anesthetic Plan: MAC: Disposition: Standard PACU
[2021-06-23 09:54] VITALS: BP 105/77; PULSE 88; RESP 18; TEMP 36.6; O2SAT 96
[2021-06-23 10:04] LABS: Hematocrit 38.9 % (37.0-47.0); Hemoglobin 12.8 g/dl (12.0-16.0); Mean Corpuscular HGB Conc 32.9 g/dl (31.0-35.0); Mean Corpuscular Hemoglobin 31.4 pg (27.0-33.0); Mean Corpuscular Volume 95.6 fL (80.0-98.0); Platelet Count 246 X10*3/uL (160-400); Red Blood Count 4.07 X10*6/uL (4.20-5.50); Red Cell Distribution Width 12.2 % (11.0-16.0); White Blood Count 5.9 X10*3/uL (4.8-10.8)
[2021-06-23 10:11] LABS: INTERNATIONAL NORM RATIO 1.1 (0.9-1.1); Prothrombin Time 12.2 SEC (9.9-13.0)
[2021-06-23] MEDS: Lactated Ringers 1,000 ML 100 ML IVCONT (10:12)
[2021-06-23 10:15] LABS: Anion Gap 13 (12-20); Blood Urea Nitrogen 11 mg/dL (9-16); Calcium 9.6 mg/dL (8.4-10.2); Carbon Dioxide 25 mmol/L (22-29); Chloride 106 mmol/L (96-108); Creatinine Clr Calc Pharmacy 37.3; Estimated Glomerular Filt Rate 40; Glucose Fasting 82 mg/dL (60-99); Potassium 3.5 mmol/L (3.3-5.1); Sodium 140 mmol/L (135-145)
[2021-06-23 11:24] VITALS: BP 101/57; PULSE 61; RESP 14; TEMP 36.9; O2SAT 97
--- NOTE | 2021-06-23 11:29 | PM.OP ---
Brief Operative Note Date of Service: 06/23/21 Pre-op diagnosis: GERD, Hx of gastric polyps, Screening Post-op diagnosis: other (Gastric polyps, Gastritis, Hiatal hernia, Colon polyp) Procedure: EGD with biopsies, Colonoscopy to the cecum and TI with bx/removal of polyp Surgeon: Jagjit Son Anesthesia: MAC Was an Shotblast Equipment Operator used for this Procedure?: No Estimated blood loss (mL): 2.0 Pathology: other (A. Gastric polyps B. Gastric antrum C. Cecal polyp) Condition: stable Disposition: PACU
[2021-06-23 11:39] VITALS: BP 90/64; PULSE 58; RESP 16; O2SAT 95
[2021-06-23 11:54] VITALS: BP 96/60; PULSE 58; RESP 16; TEMP 36.8; O2SAT 98
[2021-06-23 12:10] VITALS: BP 121/66; PULSE 60; RESP 16; O2SAT 99
--- NOTE | 2021-06-23 22:29 | OP_ITS ---
SURGEON: Jagjit Son MD INDICATIONS: The patient presents for evaluation of colorectal cancer screening, gastroesophageal reflux, and prior history of gastric polyps with a component of an adenoma. Full consent has been obtained from her for this, including risks of bleeding and perforation. PREOPERATIVE DIAGNOSIS: POSTOPERATIVE DIAGNOSIS: PROCEDURE PERFORMED: ESTIMATED BLOOD LOSS: COMPLICATIONS: ANESTHESIA: Monitored anesthesia care. ASSISTANTS: SPECIMENS: PREOPERATIVE DIAGNOSES: History of gastric polyp with adenoma, reflux, colorectal cancer screening. POSTOPERATIVE DIAGNOSES: History of gastric polyp with adenoma, reflux, colorectal cancer screening, gastric polyps, small hiatal hernia, gastritis, colon polyp, diverticulosis, and internal hemorrhoids. DESCRIPTION OF PROCEDURE: Patient was placed in the left lateral decubitus position. The Olympus video gastroscope was passed in the posterior oropharynx and upper esophagus under direct vision. The scope was passed slowly into the distal esophagus. The gastroesophageal junction appeared normal at 35 cm. There was no sign of any esophagitis nor Wolf's esophagus. The scope entered into the stomach, there was a small hiatal hernia. The scope was advanced to pylorus and the duodenum was cannulated to the descending portion. The duodenum including the bulb appeared normal without mass or ulceration. The scope was withdrawn back to the stomach. The gastric antrum and body had some areas of erythema and some edema, but no erosions nor ulceration. There was good peristalsis. Biopsies were obtained from the antrum. The scope was retroflexed visualizing the proximal stomach carefully, which appeared normal, without mass or ulceration, other than multiple hyperplastic appearing gastric polyps. In the forward viewing position, I was able to visualize multiple polyps and several of these were biopsied and removed. Only 1 of the polyps appeared to be possibly adenomatous in appearance and this was biopsied and completely removed as well. This was all placed in the same container. The scope was withdrawn back into the esophagus. The esophageal mucosa appeared normal. The scope was withdrawn from the patient. She was turned around for the colonoscopy. The digital rectal exam revealed no abnormalities. The Olympus video pediatric colonoscope was entered into the rectum and advanced easily to the cecum. Once in the cecum, I did identify normal-appearing cecal pouch other than an approximately 4 mm polyp, which was biopsied and completely removed with cold biopsy forceps. The remainder of the cecum appeared normal. The terminal ileum was cannulated and appeared normal. The scope was withdrawn back in the colon. The scope was slowly withdrawn assessing all mucosal surfaces carefully. Preparation was excellent. I did not visualize any sign of other polyps, colitis, nor angiodysplasia. There was a mild amount of sigmoid diverticulosis. In the rectum, scope was retroflexed visualizing internal hemorrhoids, but no other pathology. The rectal mucosa appeared normal. The scope was straightened and withdrawn from the patient. She tolerated both procedures well and was returned to recovery area in stable condition. IMPRESSION: 1. Small hiatal hernia. 2. Gastric polyps. 3. Gastritis. 4. Cecal polyp. 5. Diverticulosis. 6. Internal hemorrhoids. PLAN: The results of the pathology will be checked. If the colon polyp is a tubular adenoma, I would recommend a followup colonoscopy in 5 years. If it is only hyperplastic, then she would not need any further screening colonoscopies given her age approaching 71. She will continue her omeprazole for her reflux. If the gastric polyps do not show any adenomatous changes, then I do not think she will need any further upper endoscopies. She will otherwise see me on a p.r.n. basis. PROCEDURES PERFORMED: Esophagogastroduodenoscopy with biopsies, and colonoscopy to the cecum and terminal ileum with biopsy and removal of polyp. MD DAVIE Bird/SHANI / [id number]
== END 2021-06-23 13:20 | disposition home or self-care (01) ==
PROVIDERS: Nurse Practitioner; PCP Internal Medicine; Visit Provider Internal Medicine
PROC: (CPT 45380; principal; 2021-06-23 10:40)
DX: Z12.11 Encounter for screening for malignant neoplasm of colon (principal); D12.0 Benign neoplasm of cecum; K57.30 Diverticulosis of large intestine without perforation or abscess without bleeding; K64.8 Other hemorrhoids; K58.2 Mixed irritable bowel syndrome; K21.9 Gastro-esophageal reflux disease without esophagitis; Z86.018 Personal history of other benign neoplasm; K31.7 Polyp of stomach and duodenum; K29.50 Unspecified chronic gastritis without bleeding; K44.9 Diaphragmatic hernia without obstruction or gangrene; J44.9 Chronic obstructive pulmonary disease, unspecified; G20 Parkinson's disease; Q61.3 Polycystic kidney, unspecified; M79.7 Fibromyalgia; F32.9 Major depressive disorder, single episode, unspecified; F43.10 Post-traumatic stress disorder, unspecified; Z79.899 Other long term (current) drug therapy; Z88.2 Allergy status to sulfonamides; Z88.8 Allergy status to other drugs, medicaments and biological substances; Z90.49 Acquired absence of other specified parts of digestive tract; Z98.890 Other specified postprocedural states
CPT/HCPCS: 45380; 43239; 36415; 80048; 85027; 85610; 88305; 88342

== ENCOUNTER 2021-11-22 12:03 | Outpatient (REF) | payer MEDICARE, MEDICAID, SELFPAY ==
[2021-11-22 14:35] LABS: Alanine Aminotransferase 6 U/L (0-31); Albumin Level 3.7 g/dL (3.5-5.0); Alkaline Phosphatase 77 U/L (39-117); Anion Gap 14 (12-20); Aspartate Amino Transferase 11 U/L (5-31); Bilirubin Total 0.5 mg/dL (0.0-1.0); Blood Urea Nitrogen 17 mg/dL (9-16); Calcium 9.1 mg/dL (8.4-10.2); Carbon Dioxide 27 mmol/L (22-29); Chloride 105 mmol/L (96-108); Estimated Glomerular Filt Rate 43; Glucose Random 105 mg/dL (60-115); Phosphorus 3.6 mg/dL (2.7-4.5); Potassium 3.8 mmol/L (3.3-5.1); Sodium 142 mmol/L (135-145); Total Protein 6.1 g/dL (6.5-8.0)
[2021-11-22 14:47] LABS: Free T4 (Free Thyroxine) 0.91 ng/dL (0.71-1.85); Thyroid Stimulating Hormone 1.58 uIU/mL (0.32-4.0); Vitamin D 25-OH Total 39.6 ng/mL (>30)
[2021-11-23 14:02] LABS: Calcium (PTHI) 9.1 mg/dL (8.6-10.4); PTHI 121 pg/mL (16-77)
== END 2021-11-22 12:04 | disposition home or self-care (01) ==
LOC: HO.HMGCLDS 12:03
PROVIDERS: PCP Internal Medicine; Visit Provider Internal Medicine
DX: E04.2 Nontoxic multinodular goiter (principal); E55.9 Vitamin D deficiency, unspecified; E21.3 Hyperparathyroidism, unspecified
CPT/HCPCS: 36415; 80053; 82306; 83970; 84100; 84439; 84443

== ENCOUNTER 2021-11-23 14:07 | Outpatient (REF) | payer MEDICARE, MEDICAID, SELFPAY ==
--- NOTE | ~2021-11-23 | US_ITS ---
EXAMINATION: US THYROID CLINICAL INFORMATION: Nontoxic multinodular goiter.. COMPARISON: Ultrasound thyroid 03/22/2020 and 03/31/2012. US-guided thyroid biopsy 04/11/2012. TECHNIQUE: Linear transducer grayscale and color Doppler examination with attention to the region of the thyroid. FINDINGS: SIZE: Measurements of the thyroid lobes and nodules are given in sagittal, anteroposterior and transverse dimensions respectively. Right Thyroid Lobe: 4.8 x 1.7 x 1.6 cm, volume 6.73 mL. Previously 5.0 x 1.6 x 1.6 cm, volume 6.7 mL. Parenchyma: The gland echotexture is heterogeneous. Thyroid vascularity is increased. Left Thyroid Lobe: 4.3 x 1.4 x 1.4 cm, volume 4.5 mL. Previously 4.6 x 1.4 x 1.5 cm, volume 5.1 mL. Parenchyma: The gland echotexture is homogeneous. Thyroid vascularity is increased. Isthmus: 0.15 cm in maximum AP dimension. Previously 0.20 cm. Estimated total number of nodules greater than or equal to 1 cm: 1. Chief Ophthalmic Technician nodules are described as follows: 1. Location: Right mid. Size: 1.73 x 1.19 x 1.09 cm, volume 1.2 mL. Previously: 1.9 x 1.4 x 1.1 cm, volume 1.5 mL. Nodule characteristics: Composition: Spongiform (0). Echogenicity: Anechoic (0). Shape: Not taller than wide (0). Margins: Smooth (0). Echogenic Foci: None (0). ACR TI-RADS total points: 0 ACR TI-RADS category: 1 2. Location: Left mid. Size: 0.52 x 0.45 x 0.45 cm, volume 0.05 mL. Previously: 0.62 x 0.40 x 0.47 cm, volume 0.06 mL. Nodule characteristics: Composition: Spongiform (0). Echogenicity: Anechoic (0). Shape: Not taller than wide (0). Margins: Smooth (0). Echogenic Foci: None (0). ACR TI-RADS total points: 0 ACR TI-RADS category: 1 3. Location: Left mid. Size: 0.44 x 0.28 x 0.27 cm, volume 0.02 mL. Previously: 0.55 x 0.33 x 0.32 cm, volume 0.03 mL. Nodule characteristics: Composition: Spongiform (0). Echogenicity: Anechoic (0). Shape: Not taller than wide (0). Margins: Smooth (0). Echogenic Foci: None (0). ACR TI-RADS total points: 0 ACR TI-RADS category: 1 4. Location: Left mid. Size: 0.74 x 0.49 x 0.54 cm, volume 0.10 mL. Previously: Not seen on the previous study. Nodule characteristics: Composition: Spongiform (0). Echogenicity: Anechoic (0). Shape: Not taller than wide (0). Margins: Smooth (0). Echogenic Foci: None (0). ACR TI-RADS total points: 0 ACR TI-RADS category: 1 NODES: No lymphadenopathy is seen in the tissue surrounding the thyroid gland. US/US thyroid IMPRESSION: 1. All visualized nodules demonstrate a spongiform appearance with TI-RADS Category 1, the largest in the midportion of the right thyroid lobe measuring up to 1.7 cm. Nodules do not require follow-up. 2. Right thyroid lobes demonstrate heterogeneous echotexture in both lobes demonstrate increased vascularity. 3. No lymphadenopathy noted. ACR TI-RADS RECOMMENDATION REFERENCE: Ultrasound-guided fine-needle aspiration, followup ultrasound, no further follow up. * TR1 (0 point): No FNA or follow up.
== END 2021-11-23 14:08 | disposition home or self-care (01) ==
LOC: HO.HMGCX 14:07
PROVIDERS: PCP Internal Medicine; Visit Provider Internal Medicine
DX: E04.2 Nontoxic multinodular goiter (principal)
CPT/HCPCS: 76536

== ENCOUNTER → 2021-12-11 08:55 | Outpatient (BNVA) | payer MEDICARE, MEDICAID, SELFPAY | PROVIDERS: PCP Internal Medicine; Visit Provider Psychiatry & Neurology Neurology | DX: G20 Parkinson's disease (principal); G47.9 Sleep disorder, unspecified | CPT/HCPCS: 99212 ==

== ENCOUNTER 2022-01-16 14:32 | Outpatient (REF) | payer MEDICARE, MEDICAID, SELFPAY ==
[2022-01-16 17:58] LABS: Anion Gap 10 (12-20); Blood Urea Nitrogen 16 mg/dL (9-16); Calcium 9.5 mg/dL (8.4-10.2); Carbon Dioxide 29 mmol/L (22-29); Chloride 105 mmol/L (96-108); Estimated Glomerular Filt Rate 43; Potassium 4.3 mmol/L (3.3-5.1); Sodium 140 mmol/L (135-145)
== END 2022-01-16 14:33 | disposition home or self-care (01) ==
LOC: HO.HMGCLDS 14:32
PROVIDERS: PCP Internal Medicine; Visit Provider Internal Medicine Nephrology
DX: I12.9 Hypertensive chronic kidney disease with stage 1 through stage 4 chronic kidney disease, or unspecified chronic kidney disease (principal); N18.31 Chronic kidney disease, stage 3a
CPT/HCPCS: 36415; 80051; 82310; 82565; 84520

== ENCOUNTER → 2022-02-28 15:34 | Outpatient (BNVA) | payer MEDICARE, MEDICAID, SELFPAY | PROVIDERS: PCP Internal Medicine; Visit Provider Psychiatry & Neurology Neurology | DX: G20 Parkinson's disease (principal); G47.9 Sleep disorder, unspecified; Z79.899 Other long term (current) drug therapy | CPT/HCPCS: 99212 ==

== ENCOUNTER 2022-04-17 17:52 | Outpatient (REF) | payer MEDICARE, MEDICAID, SELFPAY ==
[2022-04-17 18:37] LABS: Influenza A PCR NEGATIVE (Negative); Influenza B PCR NEGATIVE (Negative); Resp Syncy Virus RNA Qual PCR NEGATIVE (Negative); SARS COV2 PCR INHOUSE NEGATIVE (Negative)
== END 2022-04-17 17:53 | disposition home or self-care (01) ==
LOC: HO.LNP 17:52
PROVIDERS: Visit Provider Nurse Practitioner Family
DX: R09.89 Other specified symptoms and signs involving the circulatory and respiratory systems (principal); R11.2 Nausea with vomiting, unspecified; Z20.822 Contact with and (suspected) exposure to COVID-19
CPT/HCPCS: 0241U

== ENCOUNTER 2022-05-04 14:20 | Outpatient (REF) | payer MEDICARE, MEDICAID, SELFPAY ==
[2022-05-04 14:55] LABS: MANUAL DIFF FLAG NO
[2022-05-04 15:16] LABS: Basophils Percent Auto 0.6 % (0-2); Eosinophils Absolute Auto 0.2 X10*3/uL (0.0-0.4); Eosinophils Percent Auto 3.6 % (0-4); Hematocrit 38.4 % (37.0-47.0); Hemoglobin 12.4 g/dl (12.0-16.0); Imm Gran Abs Auto 0.01 X10*3/uL (0.00-0.03); Imm Gran Pct Auto 0.2 % (0.0-0.4); Lymphocytes Absolute Auto 1.1 X10*3/uL (1.2-4.9); Lymphocytes Percent Auto 23.8 % (20-40); Mean Corpuscular HGB Conc 32.3 g/dl (31.0-35.0); Mean Corpuscular Hemoglobin 30.8 pg (27.0-33.0); Mean Corpuscular Volume 95.3 fL (80.0-98.0); Mean Platelet Volume 9.7 fL (9.4-12.3); Monocytes Absolute Auto 0.4 X10*3/uL (0.1-1.2); Monocytes Percent Auto 8.7 % (2-11); Neutrophils Percent Auto 63.1 % (45-73); Platelet Count 258 X10*3/uL (160-400); Red Blood Count 4.03 X10*6/uL (4.20-5.50); Red Cell Distribution Width 12.7 % (11.0-16.0); White Blood Count 4.7 X10*3/uL (4.8-10.8)
[2022-05-04 16:12] LABS: Erythrocyte Sedimentation Rate 11 MM/HR (0-20)
[2022-05-04 16:20] LABS: Alanine Aminotransferase < 6 U/L (0-31); Albumin Level 4.2 g/dL (3.5-5.0); Alkaline Phosphatase 73 U/L (39-117); Amylase 50 U/L (28-100); Anion Gap 14 (12-20); Aspartate Amino Transferase 14 U/L (5-31); Bilirubin Direct 0.2 mg/dL (0.0-0.5); Bilirubin Total 0.7 mg/dL (0.0-1.0); Blood Urea Nitrogen 18 mg/dL (9-16); C Reactive Protein 0.24 mg/dL (< or = 0.50); Calcium 10.1 mg/dL (8.4-10.2); Carbon Dioxide 27 mmol/L (22-29); Chloride 108 mmol/L (96-108); Estimated Glomerular Filt Rate 31; Glucose Random 100 mg/dL (60-115); Lipase 39 U/L (8-78); Potassium 5.5 mmol/L (3.3-5.1); Sodium 143 mmol/L (135-145); Total Protein 6.4 g/dL (6.5-8.0)
[2022-05-05 14:22] LABS: Immunoglobulin A 108 mg/dL (70-320)
[2022-05-07 16:19] LABS: Gliadin Deamidated IgA Ab <1.0 U/mL; Transglutaminase Ab IgG 1.2 U/mL; Transglutaminase IgA <1.0 U/mL
[2022-05-09 13:24] LABS: Endomysial IgA Antibody Negative (Negative)
== END 2022-05-04 14:21 | disposition home or self-care (01) ==
LOC: HO.LAB 14:20
PROVIDERS: PCP Internal Medicine; Visit Provider Internal Medicine
DX: R19.7 Diarrhea, unspecified (principal); R63.4 Abnormal weight loss; R11.2 Nausea with vomiting, unspecified; B34.9 Viral infection, unspecified
CPT/HCPCS: 36415; 80048; 80076; 82150; 82784; 83690; 85025; 85652; 86140; 86231; 86258; 86364

== ENCOUNTER 2022-05-17 17:31 | Outpatient (REF) | payer MEDICARE, MEDICAID, SELFPAY ==
[2022-05-17 17:49] LABS: Appearance Urine Cloudy; Color Urine Yellow; Glucose Urine UA Negative (Negative); Leukocyte Esterase Urine Large (3+) (Negative); Nitrite Urine Positive (Negative); Specific Gravity - Urine 1.015 (1.005-1.025); UMIC TRIGGER UACC YES; Urine Blood Negative (Negative); Urine Ketones Negative (Negative); Urine Protein Negative (Neg-Trace)
[2022-05-17 17:53] LABS: Bacteria Urine 4+ (None Seen); Hyaline Casts Urine 0-2 /LPF (0-2); RBC Urine 0-2 /HPF (0-2); Squamous Epithelial Cell Urine 0-2 /HPF (0-2); UACC Culture Trigger YES; WBC Urine >50 /HPF (0-5)
[2022-05-17 18:49] LABS: Leukocytes Stool Qualitative NEGATIVE (NEGATIVE)
[2022-05-17 19:40] LABS: CDiff Gene PCR NEGATIVE (Negative)
[2022-05-18 11:41] LABS: Adenovirus F 40/41 Not Detected (Not Detect.); Astrovirus Not Detected (Not Detect.); Campylobacter Not Detected (Not Detect.); Cryptosporidium Not Detected (Not Detect.); Cyclospora cayetanensis Not Detected (Not Detect.); E. coli EAEC Not Detected (Not Detect.); E. coli EPEC Not Detected (Not Detect.); E. coli ETEC Not Detected (Not Detect.); E. coli STEC Not Detected (Not Detect.); Entamoeba histolytica Not Detected (Not Detect.); Giardia lamblia Not Detected (Not Detect.); Norovirus GI/GII Not Detected (Not Detect.); Plesiomonas shigelloides Not Detected (Not Detect.); Rotavirus A Not Detected (Not Detect.); Salmonella Not Detected (Not Detect.); Sapovirus Not Detected (Not Detect.); Shigella sp./EIEC Not Detected (Not Detect.); Vibrio Not Detected (Not Detect.); Vibrio Cholerae Not Detected (Not Detect.); Yersinia enterocolitica Not Detected (Not Detect.)
== END 2022-05-17 17:32 | disposition home or self-care (01) ==
LOC: HO.LNP 17:31
PROVIDERS: Nurse Practitioner Family; Visit Provider Internal Medicine
DX: R19.7 Diarrhea, unspecified (principal); R63.4 Abnormal weight loss; R11.2 Nausea with vomiting, unspecified; R82.90 Unspecified abnormal findings in urine
CPT/HCPCS: 81001; 87086; 87088; 87186; 87493; 87507; 89055

== ENCOUNTER 2023-02-13 13:41 | Outpatient (AMB) | payer MEDICARE, MEDICAID, SELFPAY ==
[2023-02-13 13:47] VITALS: BP 100/70; PULSE 101; BMI 20.9
--- NOTE | 2023-02-13 13:47 | HO.NEPHOV_ITS ---
HPI HPI Comments History of Present Illness Details Lien was seen in the office in follow-up of her chronic kidney disease, nephrolithiasis. She has polycystic kidney disease. She has not had any renal functions checked for some time. She denies any flank pain, night sweats, weight loss, hematuria, pedal edema, headache, visual disturbances, chest pain, shortness of breath, nausea, vomiting or any other urinary symptoms. Her tremors are well controlled with the current dose of carbidopa/levodopa. She tries to maintain good hydration and avoids nonsteroidal anti-inflammatory medications. Her blood pressure has been at goal. She closely follows up with her PCP. [facility] Medical History Anemia Back pain Chronic fatigue CKD (chronic kidney disease), stage III COPD (chronic obstructive pulmonary disease) Depression Family history of breast cancer in mother Family history of malignant neoplasm of endometrium Fibromyalgia GERD (gastroesophageal reflux disease) Hyperlipemia Hyperparathyroidism IBS (irritable bowel syndrome) Multinodular thyroid Parkinsons disease Polycystic kidney disease PTSD (post-traumatic stress disorder) Sciatica of left side Sciatica of right side Sleep disorder Stage 3 chronic kidney disease Thyroid nodule Tremor Uterine cancer Vitamin D deficiency Surgical History Hx laparoscopic cholecystectomy History of esophagogastroduodenoscopy (EGD) H/O colonoscopy History of left breast biopsy Hx of cholecystectomy History of sinus surgery History of carpal tunnel syndrome History of total abdominal hysterectomy Family History Father COPD (chronic obstructive pulmonary disease) Mother Arteriosclerosis Breast cancer, Onset Age: 80 Sister Diabetes mellitus Breast cancer, Onset Age: 70 Brother Bone cancer History of pituitary cancer Social History Household Members: None Housing: House Alcohol intake: never Patient Tobacco Use Status: Never used Tobacco service: No Current occupational status: employed Vital Signs 02/13/23 13:47 Height 5 ft 6 in Weight 129 lb 4 oz BMI 20.9 BP 100/70 Blood Pressure Location Rt brachial Position Sitting Pulse 101 H Pulse Source Pulse Oximeter Physical Exam Vital Signs: Last Vital Signs Pulse 101 H 02/13/23 13:47 BP 100/70 02/13/23 13:47 BMI result Body Mass Index 20.9 Const General: comfortable and no acute distress Orientation/consciousness: patient oriented x3 HEENT Head: Yes normocephalic Mouth: Normal oral and palatal mucosa present Eyes EOM: EOMs intact bilaterally Neck Neck: Yes supple Resp Auscultation: clear to auscultation bilaterally Cardio Jugular venous distension: no JVD Rate: regular rate GI Palpation (GI): Soft to palpation Auscultation: normal bowel sounds General: Yes no CVA tenderness Back/Spine/Pelvis Back: no CVA tenderness Skin General skin exam: no rashes or lesions noted Neuro General: patient oriented x3 and moves all extremities Extrem General: Yes no pedal edema Assessment & Plan Assessment & Plan (1) CKD (chronic kidney disease), stage III: Comment: Dr Power Code(s): N18.30 - Chronic kidney disease, stage 3 unspecified Qualifiers: Chronic kidney disease stage 3 subtype: stage 3a (GFR 45-59) Qualified Code(s): N18.31 - Chronic kidney disease, stage 3a Plan Lien has CKD from polycystic kidney disease. She has history of microscopic hematuria and nephrolithiasis. She has no history of proteinuria. Blood pressure has been at goal. She has not had any recent blood work which I ordered. She has no flank pain, pedal edema. She does not take any nonsteroidal anti-inflammatory medications. I will order an ultrasound of her kidney. She may need MRI to assess the status of renal cyst. She has no history of any CVA in the family. She may potentially be a candidate for tolvaptan. She should maintain good hydration. I did not make any medication changes today. All questions answered. Follow-up given. Orders: Orders US renal BI 02/13/23 N18.30 - Chronic kidney disease, stage 3 unspecified Calcium 02/13/23 N18.30 - Chronic kidney disease, stage 3 unspecified Phosphorus 02/13/23 N18.30 - Chronic kidney disease, stage 3 unspecified Complete Blood Count Auto Diff 02/13/23 N18.30 - Chronic kidney disease, stage 3 unspecified Electrolytes 02/13/23 N18.30 - Chronic kidney disease, stage 3 unspecified Blood Urea Nitrogen 02/13/23 N18.30 - Chronic kidney disease, stage 3 unspecified Creatinine 02/13/23 N18.30 - Chronic kidney disease, stage 3 unspecified Vitamin D 25-OH Total 02/13/23 N18.30 - Chronic kidney disease, stage 3 unspeci fied Parathyroid Hormone Intact 02/13/23 N18.30 - Chronic kidney disease, stage 3 unspecified Coding Level of Care Code Est Pt Level 3 (43733) Diagnoses Stage 3a chronic kidney disease N18.31 Chronic kidney disease stage 3 subtype: stage 3a (GFR 45-59) Results Reviewed Nephrology Results: Hgb 12.4 g/dl (12.0-16.0) 05/04/22 WBC 4.7 X10*3/uL (4.8-10.8) L 05/04/22 Plt Count 258 X10*3/uL (160-400) 05/04/22 Sodium 143 mmol/L (135-145) 05/04/22 Potassium 5.5 mmol/L (3.3-5.1) H 05/04/22 Chloride 108 mmol/L (96-108) 05/04/22 Carbon Dioxide 27 mmol/L (22-29) 05/04/22 BUN 18 mg/dL (9-16) H 05/04/22 Creatinine 1.65 mg/dL (0.5-1.4) H 05/04/22 Calcium 10.1 mg/dL (8.4-10.2) 05/04/22 Phosphorus 3.6 mg/dL (2.7-4.5) 11/22/21 PTH Intact 121 pg/mL (16-77) H 11/22/21 Urine Protein Negative mg/dL (Neg-Trace) 05/17/22
== END 2023-02-13 14:26 | disposition home or self-care (01) ==
PROVIDERS: PCP Internal Medicine; Visit Provider Internal Medicine Nephrology
DX: N18.31 Chronic kidney disease, stage 3a (principal)
CPT/HCPCS: 99213

== ENCOUNTER → 2023-02-13 13:41 | Outpatient (BNVA) | payer MEDICARE, MEDICAID, SELFPAY | PROVIDERS: PCP Internal Medicine; Visit Provider Internal Medicine Nephrology | DX: N18.31 Chronic kidney disease, stage 3a (principal) | CPT/HCPCS: 99212 ==

== ENCOUNTER 2023-02-19 13:31 | Outpatient (REF) | payer MEDICARE, MEDICAID, SELFPAY ==
[2023-02-19 16:12] LABS: MANUAL DIFF FLAG NO
[2023-02-19 16:23] LABS: Basophils Percent Auto 0.7 % (0-2); Eosinophils Absolute Auto 0.1 X10*3/uL (0.0-0.4); Eosinophils Percent Auto 2.3 % (0-4); Hematocrit 39.4 % (37.0-47.0); Hemoglobin 12.7 g/dl (12.0-16.0); Imm Gran Abs Auto 0.01 X10*3/uL (0.00-0.03); Imm Gran Pct Auto 0.2 % (0.0-0.4); Lymphocytes Absolute Auto 1.1 X10*3/uL (1.2-4.9); Lymphocytes Percent Auto 18.9 % (20-40); Mean Corpuscular HGB Conc 32.2 g/dl (31.0-35.0); Mean Corpuscular Hemoglobin 32.1 pg (27.0-33.0); Mean Corpuscular Volume 99.5 fL (80.0-98.0); Mean Platelet Volume 9.6 fL (9.4-12.3); Monocytes Absolute Auto 0.4 X10*3/uL (0.1-1.2); Monocytes Percent Auto 7.1 % (2-11); Neutrophils Absolute Auto 4.3 x10*3/uL (2.0-8.3); Neutrophils Percent Auto 70.8 % (45-73); Platelet Count 287 X10*3/uL (160-400); Red Blood Count 3.96 X10*6/uL (4.20-5.50)
[2023-02-19 16:44] LABS: Anion Gap 15 (12-20); Blood Urea Nitrogen 24 mg/dL (9-16); Calcium 10.8 mg/dL (8.4-10.2); Carbon Dioxide 27 mmol/L (22-29); Chloride 105 mmol/L (96-108); Estimated Glomerular Filt Rate 31; Phosphorus 3.8 mg/dL (2.7-4.5); Potassium 4.5 mmol/L (3.3-5.1); Sodium 142 mmol/L (135-145)
[2023-02-19 16:55] LABS: Vitamin D 25-OH Total 59.3 ng/mL (>30)
[2023-02-19 17:00] LABS: Parathyroid Hormone Intact 122.1 pg/mL (8.7-77.1)
== END 2023-02-19 13:32 | disposition home or self-care (01) ==
LOC: HO.HMGCLDS 13:31
PROVIDERS: Visit Provider Internal Medicine Nephrology
DX: N18.30 Chronic kidney disease, stage 3 unspecified (principal)
CPT/HCPCS: 36415; 80051; 82306; 82310; 82565; 83970; 84100; 84520; 85025

== ENCOUNTER 2023-02-26 14:12 | Outpatient (REF) | payer MEDICARE, MEDICAID, SELFPAY ==
--- NOTE | ~2023-02-26 | US_ITS ---
EXAMINATION: US RETROPERITONEAL LIMITED (RENAL ONLY) CLINICAL INFORMATION: Chronic kidney disease, stage 3 unspecified. COMPARISON: CT abdomen and pelvis with contrast 08/27/2019. Renal ultrasound 04/20/2019. Ultrasound kidneys and bladder 06/18/2017. TECHNIQUE: Real-time imaging of the kidneys. FINDINGS: RIGHT KIDNEY: 12 0 x 4.5 x 6.0 cm (SAG x AP x TRV). The kidney is normal in size, contour, and echogenicity. Renal cortical thickness is normal. No hydronephrosis. Multiple anechoic parapelvic simple cysts are seen measuring up to 1.9 x 1.7 cm in size (previously 2 cm). Persistent numerous echogenic foci are present. LEFT KIDNEY: 10.8 x 5.3 x 5.9 cm (SAG x AP x TRV). The kidney is normal in size, contour, and echogenicity. Renal cortical thickness is normal. No hydronephrosis. Persistent multiple left renal cortical simple cysts are seen. The largest cyst is seen in superior left renal pole measuring 3.2 x 2.5 x 2.5 cm in size (previously 2.7 x 2.8 cm). Persistent multiple echogenic foci are present. The largest calcification is seen in mid left kidney measuring 1.2 x 0.8 x 1.1 cm in size. Left upper pole echogenic focus measures 0.8 x 0.4 x 0.6 cm in size. US/US renal BI IMPRESSION: Persistent bilateral multiple renal simple cysts, for which no follow up imaging is recommended. 2. Persistent bilateral numerous echogenic foci, compatible with nonobstructive renal calculi, vascular or dystrophic calcifications. The left lower pole calcification is visualized to be calyceal stone on CT scan of abdomen and pelvis on 08/27/2019.
== END 2023-02-26 14:13 | disposition home or self-care (01) ==
LOC: HO.HMGCX 14:12
PROVIDERS: PCP Internal Medicine; Visit Provider Internal Medicine Nephrology
DX: N18.30 Chronic kidney disease, stage 3 unspecified (principal)
CPT/HCPCS: 76775

== ENCOUNTER 2023-04-12 17:21 | Emergency (ER) | payer MEDICARE, MEDICAID, SELFPAY ==
--- NOTE | 2023-04-12 | ECG_ITS ---
Test Reason : QT INTERVAL Blood Pressure : / mmHG Vent. Rate : 070 BPM Atrial Rate : 070 BPM P-R Int : 126 ms QRS Dur : 070 ms QT Int : 398 ms P-R-T Axes : 078 035 032 degrees QTc Int : 429 ms Normal sinus rhythm Normal ECG No previous ECGs available Referred By: Generic ED Physician Electronically Signed By:KOBE GENAO MD
[2023-04-12 17:34] VITALS: BP 114/69; BP 132/86; PULSE 75; PULSE 81; RESP 17; TEMP 36.2; O2SAT 100; O2SAT 97; BMI 29.3
[2023-04-12 18:04] LABS: MANUAL DIFF FLAG NO
--- NOTE | 2023-04-12 18:05 | ED.PSYCH ---
HPI - Psych General Chief Complaint: Psychiatric Symptoms Stated Complaint: Stressed pt referred for a mental health evaluatio Time Seen by Provider: 04/12/23 17:33 Source: patient Mode of arrival: EMS Limitations: no limitations History of Present Illness HPI Narrative: Patient comes to the emergency room by ambulance from the police station. Today, patient went to the police station asking them what was the best way of transferring money in her social security information out of the country. Patient states that her fiance a few months in [place] and he . Patient states that people from [place] where the patient's fiancee was originally based, they were asking for this information so they could send his ashes. When patient went to the police station, she was informed that she has been scammed. Her fiance did a few months ago. However, no one was the asking her for money on her social security other than the scammers. Patient very upset, crying, did not realize this has been happening. 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 This information was given by EMS. Patient does not have any history of psychiatric conditions. Patient denies SI or HI. Patient was brought to the emergency room because she was very upset that the police station and they figured it would be best to have her come to the ED Related Data Home Medications Medication Instructions Recorded Confirmed bupropion HCl 300 mg 24 hr tablet, 300 mg PO QAM 02/22/20 04/17/22 extended release clonazepam 1 mg tablet 1 mg PO TID 02/22/20 04/17/22 paroxetine HCl 30 mg tablet 30 mg PO DAILY 10/06/20 04/17/22 Previous Rx's Medication Instructions Recorded epinephrine 0.3 mg/0.3 mL 0.3 mg (0.3 mL) IM Q10M PRN 04/19/20 injection, auto-injector (EpiPen) anaphylaxis #2 ea albuterol sulfate 90 mcg/actuation 2 puff inhalation Q6H PRN 06/15/21 aerosol inhaler (ProAir HFA) shortness of breath or wheezing #8.5 grams carbidopa 25 mg-levodopa 100 mg 2 tab PO QID #240 tabs 08/23/22 tablet cefuroxime axetil 500 mg tablet 500 mg PO BID #14 tabs 02/02/24 Allergies Allergy/AdvReac Type Severity Reaction Status Date / Time tomato [TOMATO] Allergy Severe ANAPHYLAXIS Verified 02/13/23 13:52 Sulfa (Sulfonamide Allergy Intermediate palomoky, ROBLES Verified 02/13/23 13:52 Antibiotics) albuterol Allergy Unknown Unknown Verified 02/13/23 13:52 metoclopramide [Reglan] Allergy Unknown Unknown Verified 02/13/23 13:52 Review of Systems Review of Systems: Constitutional : No Weight loss, No Fever, No Chills, No Night Sweats, No Fatigue, No Malaise ENT/Mouth : No Hearing loss, No Ear Pain, No Nasal Congestion, No Sinus Pain, No Hoarseness, No sore throat, No Rhinorrhea, No Swallowing Difficulty Eyes: No Eye Pain, No Swelling, No Redness, No Foreign Body, No Discharge, No Vision Changes Cardiovascular : No Chest Pain, No SOB, No Dyspnea on Exertion, No Orthopnea, No Edema, No Palpitations Respiratory : No Cough, No Sputum, No Wheezing, No Smoke Exposure, No Dyspnea Gastrointestinal : No Nausea, No Vomiting, No Diarrhea, No Constipation, No abdominal Pain, No Hematochezia, No Melena Genitourinary : no irregular bleeding, No Dysuria, No Urinary Frequency, No Hematuria, No Urinary Incontinence, No Urgency, No Flank Pain, No Urinary Flow Changes, No Hesitancy Musculoskeletal : No joint pain, No Myalgias, No Joint Swelling Skin : No Skin Lesions, No rash Neuro : No Weakness, No Numbness, No Paresthesias, No Loss of Consciousness, No Dizziness, No Headache Psych : No Anxiety/Panic, No Depression, No SI/HI/AH/VH, complaining of feeling very angry, patient just 1 that she has been scammed for money for 3 years Heme/Lymph: No Bruising, No Bleeding,No Lymphadenopathy Endocrine : No Polyuria, No Polydipsia, No Temperature Intolerance PMFSH Past Medical History Medical History Sleep disorder Anemia CKD (chronic kidney disease), stage III Family history of breast cancer in mother Uterine cancer PTSD (post-traumatic stress disorder) Vitamin D deficiency Hyperparathyroidism Family history of malignant neoplasm of endometrium Polycystic kidney disease Multinodular thyroid Parkinsons disease Depression Hyperlipemia Back pain Thyroid nodule Tremor Sciatica of right side Sciatica of left side GERD (gastroesophageal reflux disease) Stage 3 chronic kidney disease Chronic fatigue IBS (irritable bowel syndrome) Fibromyalgia COPD (chronic obstructive pulmonary disease) Surgical History Hx laparoscopic cholecystectomy History of esophagogastroduodenoscopy (EGD) H/O colonoscopy History of left breast biopsy Hx of cholecystectomy History of sinus surgery History of carpal tunnel syndrome History of total abdominal hysterectomy Family History Family History Father COPD (chronic obstructive pulmonary disease) Mother Arteriosclerosis Breast cancer, Onset Age: 80 Sister Diabetes mellitus Breast cancer, Onset Age: 70 Brother Bone cancer History of pituitary cancer Social History Social History Household Members: None Housing: House Alcohol intake: never Patient Tobacco Use Status: Never used Tobacco Smoked in Last 30 Days: No Use of substances other than those prescribed or required for medical reasons: No Advance Directives: No Advance Directives Information Provided: No service: No Current occupational status: employed Physical Exam Vital Signs: Vital Signs: Last Vital Signs Temp 97.2 F 04/12/23 17:34 Pulse 75 04/12/23 17:34 Resp 17 04/12/23 17:34 BP 114/69 04/12/23 17:34 Pulse Ox 97 04/12/23 17:34 O2 Del Method Room Air 04/12/23 17:34 BMI result Body Mass Index 29.3 Const: Other: Appearance: Alert. Oriented X3. No acute distress. Eyes: Pupils equal, round and reactive to light. Vitreous hemorrhage noted on the left eye ENT: Pharynx normal. Neck: Normal inspection. Neck supple. No lymph nodes noted. No crepitus CVS: Normal heart rate and rhythm. Pulses normal. Normal S1 and S2 Respiratory: No respiratory distress. Breath sounds normal. No Wheezing. No rales Abdomen: Soft and nontender. No rigidity. No distention. Skin: Skin warm and dry. Normal skin color. Normal skin turgor. Extremities: No lower extremity edema. No Lacerations. No Rash Neuro: Oriented X 3. No motor deficit. No sensory deficit. Moving all extremities. No slurred speech. CN 2 through 12 grossly intact Psych: calm, cooperative, upset, tearful Course Course Course Narrative: -I discussed the physical exam with the patient, she was not aware that she has a small vitreous hemorrhage in the left eye, denies any visual changes -patient waiting to be seen by the care team per her request -patient is not SI or HI, section 12 isn't indicated Medical Decision Making Medical Decision Making [facility] Narrative: -my interpretation of labs, hematology and chemistry at baseline, patient has a UTI, patient being treated, 1st dose of cefuroxime given in the ED -care team consult pending Differential Diagnosis Differential Diagnoses: The differential diagnosis associated with the presentation includes (Anxiety, depression, UTI) Admission/Observation Consideration of admission/observation: Escalation of care including admission/observation considered (Patient not on a Section, on physician observation waiting to be seen by the care team) Lab Data [facility] Lab Attestation statement: I reviewed the patient's lab results. 04/12/23 18:00 04/12/23 18:00 Labs: Lab Results 04/12/23 04/12/23 Range/Units 17:55 18:00 WBC 5.8 (4.8-10.8) X10*3/uL RBC 3.62 L (4.20-5.50) X10*6/uL Hgb 11.8 L (12.0-16.0) g/dl Hct 35.2 L (37.0-47.0) % MCV 97.2 (80.0-98.0) fL MCH 32.6 (27.0-33.0) pg MCHC 33.5 (31.0-35.0) g/dl RDW 12.0 (11.0-16.0) % Plt Count 260 (160-400) X10*3/uL MPV 9.0 L (9.4-12.3) fL Immature Gran % (Auto) 0.2 (0.0-0.4) % Neut % (Auto) 57.4 (45-73) % Lymph % (Auto) 29.3 (20-40) % [place] % (Auto) 9.4 (2-11) % Eos % (Auto) 3.0 (0-4) % Baso % (Auto) 0.7 (0-2) % Lymph # (Auto) 1.7 (1.2-4.9) X10*3/uL [place] # (Auto) 0.5 (0.1-1.2) X10*3/uL Eos # (Auto) 0.2 (0.0-0.4) X10*3/uL Baso # (Auto) 0.0 (0.0-0.2) X10*3/uL Abs Immat Gran (auto) 0.01 (0.00-0.03) X10*3/uL Absolute Neuts (auto) 3.3 (2.0-8.3) x10*3/uL Absolute Nucleated RBC 0.000 (0.0-0.012) X10*3/uL Nucleated RBC % (auto) 0.0 (0.0-0.2) /100WBC Sodium 144 (135-145) mmol/L Potassium 3.9 (3.3-5.1) mmol/L Chloride 105 (96-108) mmol/L Carbon Dioxide 29 (22-29) mmol/L Anion Gap 14 (12-20) BUN 15 (9-16) mg/dL Creatinine 1.41 H (0.5-1.4) mg/dL Estim Creat Clear Calc 31.5 Estimated GFR 37 Random Glucose 99 (60-115) mg/dL Calcium 10.0 D (8.4-10.2) mg/dL Urine Color Dark Yellow Urine Appearance Cloudy Urine pH 6.0 (5.0-9.0) Ur Specific [place] 1.020 (1.005-1.025) Urine Protein Trace (Neg-Trace) mg/dL Urine Glucose (UA) Negative (Negative) mg/dL Urine Ketones Trace (Negative) mg/dL Urine Blood Negative (Negative) Urine Nitrite Positive H (Negative) Ur Leukocyte Esterase Moderate (2+) H (Negative) Urine RBC 0-2 (0-2) /HPF Urine WBC 11-20 (0-5) /HPF Ur Squamous Epith Cells 3-5 (0-2) /HPF Calcium Oxalate Crystal Present Urine Bacteria 4+ (None Seen) Hyaline Casts 0-2 (0-2) /LPF Urine Opiates Screen Not Detected (Not Detect) Urine Fentanyl Screen Not Detected (Not Detect) Ur Barbiturates Screen Not Detected (Not Detect) Ur Phencyclidine Scrn Not Detected (Not Detect) Ur Amphetamines Screen Not Detected (Not Detect) U Benzodiazepines Scrn POSITIVE H (Not Detect) Urine Cocaine Screen Not Detected (Not Detect) U Marijuana (THC) Screen Not Detected (Not Detect) Ethyl Alcohol < 10 mg/dL COVID-19 ([facility]ILLIAM) Negative (Negative) COVID-19 Clin Com See Note Discharge Plan Discharge Clinical Impression: Anxiety, Acute UTI Patient Disposition: Still a Patient Instructions: Urinary Tract Infection in Women (DC), Anxiety (ED), Urinary Tract Infection in Older Adults (ED) Additional Instructions: Please follow-up with your primary care physician tomorrow. If you have any worsening or new symptoms, please return to the emergency room or call 911 Prescriptions: New cefuroxime axetil 500 mg tablet 500 mg PO BID Qty: 14 0RF No Action epinephrine [EpiPen] 0.3 mg/0.3 mL auto-injector 0.3 mg IM Q10M PRN (Reason: anaphylaxis) Qty: 2 0RF Rx Instructions: for 2 doses albuterol sulfate [ProAir HFA] 90 mcg/actuation HFA aerosol inhaler 2 puff inhalation Q6H PRN (Reason: shortness of breath or wheezing) Qty: 8.5 0RF carbidopa-levodopa 25-100 mg tablet 2 tab PO QID Qty: 240 6RF clonazepam 1 mg tablet 1 mg PO TID bupropion HCl 300 mg tablet extended release 24 hr 300 mg PO QAM paroxetine HCl 30 mg tablet 30 mg PO DAILY Interventions: Vesta-Suicide Risk Severity Scale Last Done: 04/12/23 17:52
[2023-04-12 18:08] LABS: Basophils Percent Auto 0.7 % (0-2); Eosinophils Absolute Auto 0.2 X10*3/uL (0.0-0.4); Hematocrit 35.2 % (37.0-47.0); Hemoglobin 11.8 g/dl (12.0-16.0); Imm Gran Abs Auto 0.01 X10*3/uL (0.00-0.03); Imm Gran Pct Auto 0.2 % (0.0-0.4); Lymphocytes Absolute Auto 1.7 X10*3/uL (1.2-4.9); Lymphocytes Percent Auto 29.3 % (20-40); Mean Corpuscular HGB Conc 33.5 g/dl (31.0-35.0); Mean Corpuscular Hemoglobin 32.6 pg (27.0-33.0); Mean Corpuscular Volume 97.2 fL (80.0-98.0); Monocytes Absolute Auto 0.5 X10*3/uL (0.1-1.2); Monocytes Percent Auto 9.4 % (2-11); Neutrophils Absolute Auto 3.3 x10*3/uL (2.0-8.3); Neutrophils Percent Auto 57.4 % (45-73); Platelet Count 260 X10*3/uL (160-400); Red Blood Count 3.62 X10*6/uL (4.20-5.50); White Blood Count 5.8 X10*3/uL (4.8-10.8)
[2023-04-12 18:09] LABS: Appearance Urine Cloudy; Color Urine Dark Yellow; Glucose Urine UA Negative (Negative); Leukocyte Esterase Urine Moderate (2+) (Negative); Nitrite Urine Positive (Negative); UMIC TRIGGER UACC YES; Urine Blood Negative (Negative); Urine Ketones Trace mg/dL (Negative); Urine Protein Trace mg/dL (Neg-Trace)
[2023-04-12 18:18] LABS: Amphetamine Screen Urine Not Detected (Not Detect); Barbiturates, Urine Not Detected (Not Detect); Benzodiazepines Screen Urine POSITIVE (Not Detect); Cannabinoid Screen Urine Not Detected (Not Detect); Cocaine Screen Urine Not Detected (Not Detect); Fentanyl, urine Not Detected (Not Detect); Opiate Screen Urine Not Detected (Not Detect); Phencyclidine Screen Urine Not Detected (Not Detect)
[2023-04-12 18:19] LABS: Anion Gap 14 (12-20); Blood Urea Nitrogen 15 mg/dL (9-16); Carbon Dioxide 29 mmol/L (22-29); Chloride 105 mmol/L (96-108); Creatinine Clr Calc Pharmacy 31.5; Estimated Glomerular Filt Rate 37; Ethanol < 10 mg/dL; Glucose Random 99 mg/dL (60-115); Potassium 3.9 mmol/L (3.3-5.1); Sodium 144 mmol/L (135-145)
[2023-04-12 18:20] LABS: COVID-19 Test Negative (Negative); IDNOW Serial# 08D9AD1C
[2023-04-12 18:26] LABS: Bacteria Urine 4+ (None Seen); Calcium Oxalate Crystals Urine Present; Hyaline Casts Urine 0-2 /LPF (0-2); UACC Culture Trigger YES
[2023-04-12 18:27] LABS: RBC Urine 0-2 /HPF (0-2)
--- NOTE | 2023-04-12 19:30 | PC.NURSE ---
patient appears to remain at rest presently relaxing in room and meeting with care team, patient appears in no distress
[2023-04-12] MEDS: cefuroxime axetiL 500 MG TABLET PO (21:52)
[2023-04-13] MEDS: Acetaminophen 325 MG TABLET 650 MG PO (01:07)
[2023-04-13 01:29] VITALS: BP 129/50; PULSE 69; RESP 16; TEMP 37.1; O2SAT 97
[2023-04-13] MEDS: clonazePAM 1 MG TABLET PO ×3 (02:04→20:02)
[2023-04-13] MEDS: PARoxetine HCL 40 MG TABLET PO (10:44)
[2023-04-13] MEDS: buPROPion HCl XL 300 MG TAB.ER.24H PO (10:44)
[2023-04-13] MEDS: cefuroxime axetiL 500 MG TABLET PO ×2 (10:44→20:02)
[2023-04-13 11:22] VITALS: BP 135/55; PULSE 73; RESP 16; TEMP 36.7; O2SAT 96
[2023-04-13 17:18] VITALS: RESP 18
--- NOTE | 2023-04-13 17:48 | MHC.CARE ---
CARE Team faxed [facility] referral to [facility] for this pt. Please follow up
--- NOTE | 2023-04-13 18:22 | PC.NURSE ---
Helen was OOB this morning to use the bathroom and get the telephone. She ambulates with a walker and is tremulous at baseline d/t her Parkinson's. Helen requested numbers from her phone and was very relieved to talk to some of her friends. Helen is adherent with her medications. No behavioral concerns. Appetite good.
--- NOTE | 2023-04-13 19:16 | PC.NURSE ---
patient appears to remain asleep at present respirations are even and unlabored patient appears in no distress
[2023-04-13] MEDS: Carbidopa/Levodopa 25/100 TABLET 2 TAB PO (20:37)
[2023-04-14] MEDS: LORazepam 1 MG TABLET PO (00:03)
--- NOTE | 2023-04-14 05:25 | PC.NURSE ---
patient expressed feel slike shes in a holding pattern and does want help but also wants to shower and wear her own clothes t/w told client id document in record, expressed to care team,
[2023-04-14] MEDS: Carbidopa/Levodopa 25/100 TABLET 2 TAB PO ×3 (07:51→16:08)
[2023-04-14] MEDS: PARoxetine HCL 40 MG TABLET PO (07:52)
[2023-04-14] MEDS: clonazePAM 1 MG TABLET PO ×2 (07:52→14:14)
[2023-04-14] MEDS: cefuroxime axetiL 500 MG TABLET PO ×2 (07:52→16:08)
[2023-04-14] MEDS: buPROPion HCl XL 300 MG TAB.ER.24H PO (07:53)
--- NOTE | 2023-04-14 13:29 | MHC.CARE ---
Pt was accepted to [facility] for today 04/14/23 @ 4pm, N2n completed.
[2023-04-14 14:26] VITALS: RESP 18
--- NOTE | 2023-04-14 15:53 | PC.NURSE ---
Lien was OOB this shift and was observed on the phone with friends and coloring in her room. Helen was adherent with her scheduled medications and was accepted to a respite facility where she will be transferred at 1600. The facility requested Lien receive her QHS Antibiotic dose before being discharged. Helen had a friend drop off her home medications to take to respite with her, these were dropped off at 1550. Helen is currently changing for discharge she will be sent to the respite by MARTINEZ ferreira. All medications dropped off by her friend will be going with Helen.
--- NOTE | 2023-04-15 10:37 | MHC.CARE ---
CARE Team updated Pts outpatient pyschaitrist Pt was seen in the ED for crisis , as at time of assessment office was not open.
== END 2023-04-14 16:17 ==
PROVIDERS: Emergency Provider Emergency Medicine
DX: F41.9 Anxiety disorder, unspecified (principal); N39.0 Urinary tract infection, site not specified; B96.20 Unspecified Escherichia coli [E. coli] as the cause of diseases classified elsewhere; Z79.899 Other long term (current) drug therapy; Z11.52 Encounter for screening for COVID-19
CPT/HCPCS: 80048; 80307; 81001; 85025; 87086; 87088; 87186; 87635; 93005; 99285; S9485

== ENCOUNTER → 2023-04-12 18:14 | Outpatient (BNV) | payer MEDICARE, MEDICAID, SELFPAY | PROVIDERS: Emergency Provider Emergency Medicine; Visit Provider Internal Medicine Cardiovascular Disease | DX: R41.82 Altered mental status, unspecified (principal) | CPT/HCPCS: 93010 ==

== ENCOUNTER 2023-05-29 14:09 | Outpatient (AMB) | payer MEDICARE, MEDICAID, SELFPAY ==
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
[2023-05-29 14:18] VITALS: BP 120/76; PULSE 108; RESP 16; O2SAT 94; BMI 18.4
== END 2023-05-29 15:03 | disposition home or self-care (01) ==
PROVIDERS: Visit Provider Psychiatry & Neurology Neurology
DX: G20.A1 Parkinson's disease without dyskinesia, without mention of fluctuations (principal); G47.9 Sleep disorder, unspecified
CPT/HCPCS: 99214

== ENCOUNTER → 2023-05-29 14:09 | Outpatient (BNVA) | payer MEDICARE, MEDICAID, SELFPAY | PROVIDERS: Visit Provider Psychiatry & Neurology Neurology | DX: G20.A1 Parkinson's disease without dyskinesia, without mention of fluctuations (principal); G47.9 Sleep disorder, unspecified | CPT/HCPCS: 99212 ==

== ENCOUNTER 2023-05-30 14:59 | Inpatient (IN) | payer MEDICARE, MEDICAID, SELFPAY ==
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
[2023-05-30 16:10] VITALS: BP 153/82; PULSE 111; RESP 14; TEMP 37.1; O2SAT 97; BMI 27.4
--- NOTE | 2023-05-30 16:19 | MHC.CARE ---
CARE Team spoke with Dr. Cheyanne Morejon at [facility] ([phone]) who reports that she had an in-person appointment with Pt this afternoon. Pt presented tearful and confused. Requested Pt receive an evaluation for failure to thrive and due to lack of outpatient supports. Advocates that Pt would benefit from [facility].
[2023-05-30 16:23] LABS: Appearance Urine Cloudy; Color Urine Yellow; Glucose Urine UA Negative (Negative); Leukocyte Esterase Urine Negative (Negative); Nitrite Urine Negative (Negative); PH 5.5 (5.0-9.0); Urine Blood Negative (Negative); Urine Ketones Trace mg/dL (Negative); Urine Protein Trace mg/dL (Neg-Trace)
[2023-05-30 16:28] LABS: Amphetamine Screen Urine Not Detected (Not Detect); Barbiturates, Urine Not Detected (Not Detect); Benzodiazepines Screen Urine POSITIVE (Not Detect); Cannabinoid Screen Urine Not Detected (Not Detect); Cocaine Screen Urine Not Detected (Not Detect); Fentanyl, urine Not Detected (Not Detect); Opiate Screen Urine Not Detected (Not Detect); Phencyclidine Screen Urine Not Detected (Not Detect)
--- NOTE | 2023-05-30 16:33 | PC.NURSE ---
patients belongings placed into locker number 6. patient is calm and cooperative with staff, visiting with niece in room at this time. has own cane in room as patient has parkinsons and this is her own device.
[2023-05-30] MEDS: Ibuprofen 400 MG TABLET PO (16:51)
--- NOTE | 2023-05-30 16:53 | PC.NURSE ---
requesting motrin for headache - labs obtained and sent
[2023-05-30 17:01] LABS: MANUAL DIFF FLAG NO
[2023-05-30 17:05] LABS: Basophils Percent Auto 0.5 % (0-2); Eosinophils Absolute Auto 0.2 X10*3/uL (0.0-0.4); Eosinophils Percent Auto 3.4 % (0-4); Hemoglobin 11.8 g/dl (12.0-16.0); Imm Gran Abs Auto 0.01 X10*3/uL (0.00-0.03); Imm Gran Pct Auto 0.2 % (0.0-0.4); Mean Corpuscular HGB Conc 33.7 g/dl (31.0-35.0); Mean Corpuscular Hemoglobin 32.5 pg (27.0-33.0); Mean Corpuscular Volume 96.4 fL (80.0-98.0); Mean Platelet Volume 9.2 fL (9.4-12.3); Monocytes Absolute Auto 0.4 X10*3/uL (0.1-1.2); Monocytes Percent Auto 7.9 % (2-11); Neutrophils Absolute Auto 2.9 x10*3/uL (2.0-8.3); Platelet Count 261 X10*3/uL (160-400); Red Blood Count 3.63 X10*6/uL (4.20-5.50); Red Cell Distribution Width 11.9 % (11.0-16.0); White Blood Count 4.4 X10*3/uL (4.8-10.8)
[2023-05-30 17:18] LABS: Acetaminophen LAB < 3 mcg/mL (<30); Alanine Aminotransferase < 5 U/L (0-31); Alkaline Phosphatase 62 U/L (39-117); Anion Gap 15 (12-20); Aspartate Amino Transferase 14 U/L (5-31); Bilirubin Total 0.5 mg/dL (0.0-1.0); Blood Urea Nitrogen 15 mg/dL (9-16); Calcium 10.5 mg/dL (8.4-10.2); Carbon Dioxide 29 mmol/L (22-29); Chloride 107 mmol/L (96-108); Creatinine Clr Calc Pharmacy 33.4; Estimated Glomerular Filt Rate 39; Ethanol < 10 mg/dL; Glucose Random 114 mg/dL (60-115); Magnesium 1.7 mg/dL (1.6-2.6); Potassium 3.8 mmol/L (3.3-5.1); Salicylate < 5.0 mg/dL (15-30); Sodium 147 mmol/L (135-145); Total Protein 6.5 g/dL (6.5-8.0)
--- NOTE | 2023-05-30 19:21 | PC.NURSE ---
patient appears to remain at rest at present respirations are even and unlabored patient appears in no distress.
--- NOTE | 2023-05-30 19:30 | PC.NURSE ---
patient appears to remain at rest presently respirations are even and unlabored patient appears in no distress
[2023-05-30] MEDS: clonazePAM 1 MG TABLET PO (21:21)
[2023-05-30] MEDS: Carbidopa/Levodopa 25/100 TABLET 2 TAB PO (21:21)
--- NOTE | 2023-05-30 21:27 | MHC.CARE ---
CARE Team evaluation complete. Pt is a geriatric IPLOC Bedsearch and is on a section 12A for safety. ED provider, POD RN and Pt are are of disposition.
--- NOTE | 2023-05-30 22:25 | PC.NURSE ---
patient makes very frequent requests and grumbles under breath when meeds arent met immediately.
[2023-05-31 02:09] VITALS: BP 138/79; PULSE 89; RESP 16; TEMP 36.8; O2SAT 98
[2023-05-31 08:00] VITALS: BP 115/59; PULSE 69; RESP 14; TEMP 36.7; O2SAT 98
--- NOTE | 2023-05-31 08:00 | PC.NURSE ---
PT IS A/O X 4 NO SOB/RAQUEL NOTED SPEAKS IN FULL SENTENCES. PT ATE 100% OF BREAKFAST. DENIES ANY SI. C/O / HEADACHE. PT AWARE OF PLAN OF CARE. WILL CONTINUE TO MONITOR.
[2023-05-31] MEDS: Carbidopa/Levodopa 25/100 TABLET 2 TAB PO ×4 (08:17→21:05)
[2023-05-31] MEDS: Famotidine 20 MG TABLET 40 MG PO (08:17)
[2023-05-31] MEDS: PARoxetine HCL 40 MG TABLET PO (08:17)
[2023-05-31] MEDS: buPROPion HCl XL 300 MG TAB.ER.24H PO (08:17)
[2023-05-31] MEDS: clonazePAM 1 MG TABLET PO ×3 (08:18→21:05)
--- NOTE | 2023-05-31 08:47 | ECG_ITS ---
Test Reason : CHECK QT Blood Pressure : / mmHG Vent. Rate : 072 BPM Atrial Rate : 072 BPM P-R Int : 124 ms QRS Dur : 080 ms QT Int : 402 ms P-R-T Axes : 074 043 045 degrees QTc Int : 440 ms Normal sinus rhythm with sinus arrhythmia Normal ECG When compared with ECG of 12-APR-2023 18:14, No significant change was found Referred By: Lyndsay De La Fuente Electronically Signed By:BOSTON KIM
[2023-05-31 09:33] LABS: COVID-19 Test Negative (Negative); IDNOW Serial# 08D9AD1C
[2023-05-31 12:30] VITALS: BP 153/89; PULSE 92; TEMP 36.6; O2SAT 98
[2023-05-31 16:31] VITALS: BMI 19.5
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
--- NOTE | 2023-05-31 18:58 | PC.NURSE ---
Lien refuses flu vaccine at this time.
[2023-05-31 21:00] VITALS: BP 119/70; PULSE 79; RESP 16; TEMP 36.8; O2SAT 94
[2023-05-31] MEDS: Acetaminophen 325 MG TABLET 650 MG PO (21:20)
[2023-06-01 08:00] VITALS: BP 156/71; PULSE 56; RESP 14; TEMP 36.6; O2SAT 96
[2023-06-01 08:21] LABS: Alanine Aminotransferase < 5 U/L (0-31); Albumin Level 3.5 g/dL (3.5-5.0); Alkaline Phosphatase 51 U/L (39-117); Anion Gap 10 (12-20); Aspartate Amino Transferase 10 U/L (5-31); Bilirubin Total 0.3 mg/dL (0.0-1.0); Blood Urea Nitrogen 20 mg/dL (9-16); Calcium 9.9 mg/dL (8.4-10.2); Carbon Dioxide 31 mmol/L (22-29); Chloride 106 mmol/L (96-108); Cholesterol 153 mg/dL (<200); Estimated Glomerular Filt Rate 45; Glucose Fasting 96 mg/dL (60-99); HDL Cholesterol 57 mg/dL (>40); LDL Cholesterol Calculated 87 mg/dL (<100); Potassium 4.1 mmol/L (3.3-5.1); Sodium 143 mmol/L (135-145); Total Protein 5.7 g/dL (6.5-8.0); Triglycerides 48 mg/dL (<150)
[2023-06-01] MEDS: buPROPion HCl XL 300 MG TAB.ER.24H PO (09:45)
[2023-06-01] MEDS: Carbidopa/Levodopa 25/100 TABLET 2 TAB PO ×4 (09:45→21:17)
[2023-06-01] MEDS: Famotidine 20 MG TABLET 40 MG PO (09:46)
[2023-06-01] MEDS: clonazePAM 1 MG TABLET PO ×3 (09:46→21:17)
[2023-06-01] MEDS: PARoxetine HCL 40 MG TABLET PO (09:46)
[2023-06-01] MEDS: Acetaminophen 325 MG TABLET 650 MG PO (12:35)
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
[2023-06-01 20:50] VITALS: BP 125/72; PULSE 63; RESP 16; TEMP 36.6; O2SAT 97
[2023-06-02 07:36] VITALS: BP 133/63; PULSE 64; RESP 14; TEMP 37.3; O2SAT 96
[2023-06-02] MEDS: PARoxetine HCL 40 MG TABLET PO (08:52)
[2023-06-02] MEDS: Carbidopa/Levodopa 25/100 TABLET 2 TAB PO ×4 (08:53→21:16)
[2023-06-02] MEDS: buPROPion HCl XL 300 MG TAB.ER.24H PO (08:53)
[2023-06-02] MEDS: clonazePAM 1 MG TABLET PO ×3 (08:53→21:17)
[2023-06-02] MEDS: Famotidine 20 MG TABLET 40 MG PO (08:53)
--- NOTE | 2023-06-02 14:37 | PC.NURSE ---
Pt administered MOCA assessment on 06/02/2023. Pt scored a 18 out of 30, indicating mild cognitive impairment. Provider notified via [place] Text.
[2023-06-02 20:44] VITALS: BP 134/65; PULSE 67; RESP 16; TEMP 36.7; O2SAT 99
[2023-06-02] MEDS: Acetaminophen 325 MG TABLET 650 MG PO (21:29)
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
[2023-06-03 07:50] VITALS: BP 106/66; PULSE 80; RESP 18; TEMP 36.2; O2SAT 98
[2023-06-03] MEDS: buPROPion HCl XL 300 MG TAB.ER.24H PO (08:49)
[2023-06-03] MEDS: Carbidopa/Levodopa 25/100 TABLET 2 TAB PO ×4 (08:50→22:25)
[2023-06-03] MEDS: clonazePAM 1 MG TABLET PO ×3 (08:50→22:25)
[2023-06-03] MEDS: PARoxetine HCL 40 MG TABLET PO (08:50)
[2023-06-03] MEDS: Magnesium Hydrox/Alum Hydrox 30 ML ORAL.SUSP PO (10:42)
--- NOTE | 2023-06-03 11:43 | MHC.CLN ---
NUTRITION CONSULT FOR REPORTED 30# WEIGHT LOSS. PATIENT REPORTS 30# WEIGHT LOSS X 3 MONTHS DUE TO NOT HUNGRY AND VOMITING. REVIEW OF WEIGHT DOES NOT SHOW CONSISTENT WEIGHTS X 3 DAYS WITH LIKELY ERROR IN RECORDING. PATIENT REPORTS RAHTAA=[id number]#, 49 KG AND APPEARS TO BE ACCURATE. DISCUSSED WEIGHT LOSS AND FOODS EATEN AT HOME. WOULD LIKE TO TRY ENSURE BID (CHOCOLATE). SUPPLEMENT PROVIDES 700 KCALS, 40 G PROTEIN. DIET=REGULAR-APPROPRIATE. DX INCLUDE PARKINSON'S, CKD STAGE 3, AND GERD. CONTINUE CURRENT DIET AND SUPPLEMENT.
--- NOTE | 2023-06-03 15:30 | HO.PSYCHPN ---
Subjective Subjective Date of Service: 06/03/23 Reason For Visit: crisis Interim History: calm, cooperative. vague, unsure of why she is here and what we can do for her. per staff, depressed. sleeping a lot during days. c/o back and neck pain. swallow consult recommended continue on present diet. MoCA . Mental Status Exam Mental Status Exam Narrative: Pt is alert and oriented; behavior is cooperative and calm; dressed in casual attire; mood is described as depressed ; eye contact appropriate; Speech is slowed, decreased volume and prosody and not pressured; thought process is organized and goal directed; somewhat slowed Thought content is on tx; no SI/HI/AVH expressed. Diagnostics Vital Signs (24Hr): Vital Signs - 24 hr 06/02/23 20:44 06/03/23 07:50 Temperature 98.0 F 97.2 F Pulse Rate 67 80 Respiratory Rate 16 18 Blood Pressure 134/65 106/66 Pulse Oximetry 99 98 Oxygen Delivery Method Room Air Room Air BMI result Body Mass Index 19.5 Labs 05/30/23 16:55 06/01/23 07:27 Medications Medications Current Medications Acetaminophen (Acetaminophen 325 Mg Tablet) 650 mg PO Q6H PRN PRN Reason: Headache/Pain Mild Scale (1-3) Last Admin: 06/02/23 21:29 Dose: 650 mg Al Hydroxide/Mg Hydroxide (Magnesium Hydrox/Alum Hydrox 30 Ml Oral.Susp) 30 ml PO Q6H PRN PRN Reason: Heartburn/Nausea Last Admin: 06/03/23 10:42 Dose: 30 ml Albuterol Sulfate (Albuterol Sulfate 90 Mcg 8 Gm Inhaler) 2 puff INHALE Q6H PRN PRN Reason: shortness of breath or wheezing Bupropion HCl (Bupropion Hcl Xl 300 Mg Tab.Er.24h) 300 mg PO DAILY [facility] Last Admin: 06/03/23 08:49 Dose: 300 mg Carbidopa/Levodopa (Carbidopa/Levodopa 25/100 Tablet) 2 tab PO QID [facility] Last Admin: 06/03/23 12:49 Dose: 2 tab Clonazepam (Clonazepam 1 Mg Tablet) 1 mg PO TID [facility] Last Admin: 06/03/23 14:54 Dose: 1 mg Famotidine (Famotidine 20 Mg Tablet) 40 mg PO Q48H [facility] Hydroxyzine HCl (Hydroxyzine Hcl 25 Mg Tablet) 25 mg PO Q6H PRN PRN Reason: Anxiety Magnesium Hydroxide (Milk Of Magnesia 30 Ml Oral.Susp) 30 ml PO DAILY PRN PRN Reason: Constipation Paroxetine HCl (Paroxetine Hcl 40 Mg Tablet) 40 mg PO DAILY [facility] Last Admin: 06/03/23 08:50 Dose: 40 mg Trazodone HCl (Trazodone Hcl 50 Mg Tablet) 50 mg PO BEDTIME MRX1 PRN PRN Reason: Insomnia Allergies Allergies Allergy/AdvReac Type Severity Reaction Status Date / Time tomato [TOMATO] Allergy Severe ANAPHYLAXIS Verified 05/29/23 14:15 Sulfa (Sulfonamide Allergy Intermediate shaky, ROBLES Verified 05/29/23 14:15 Antibiotics) albuterol Allergy Unknown Unknown Verified 05/29/23 14:15 metoclopramide [Reglan] Allergy Unknown Unknown Verified 05/29/23 14:15 Assessment & Plan Assessment & Plan (1) MDD (major depressive disorder), recurrent episode, severe: Status: Acute Code(s): F33.2 - Major depressive disorder, recurrent severe without psychotic features (2) PTSD (post-traumatic stress disorder): Status: Acute Code(s): F43.10 - Post-traumatic stress disorder, unspecified (3) Parkinson's disease without dyskinesia: Status: Acute Code(s): G20.A1 - Parkinson's disease without dyskinesia, without mention of fluctuations Plan Patient is a 72 year old female with hx of MDD, PTSD and Parkinson's disease who self presented to ER d/t her outpatient psychiatrist suggesting pt should be evaluated secondary to confusion, mood, weight loss and ability to take care of herself. 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 speech eval supports continuing present diet. continue current mgmt for now. Reason for continued inpatient stay Substantial Risk for: harm to self and inability to function Time Spent With Patient Time: Total time managing care of this patient today __35__ minutes.
--- NOTE | 2023-06-03 17:55 | MHC.SL.SWA ---
Speech Pathologist Impression: WFL Risk of Aspiration Due to: Neurological Condition Dysphasia Diet Status: No changes at this time Liquid Consistency and Strategies for Safe Swallow: Liquid Intake Recommendation: Thin Liquid Intake Strategies: Small Sips Double Swallow Solid Food Consistency: Dietary Recommendations: Regular Additional Modifications to Solid Foods: BILLET ASSEMBLER counselled patient on strategies for improved oral and pharyngeal clearance: take small bites, chew food well, dry swallow between bites, liquid wash. Oral Medication Intake: Whole with Liquid Please contact the pharmacy regarding appropriate crushable or liquid drug formulations that are available whenever modified delivery is recommended. Compensatory Strategies and Precautions to be Taken for Safe Swallow: Sitting Upright (90 deg) Double Swallow Small Bites and Sips Alternate Liquids/Solids Rate of Ingestion Change Avoid Specific Foods Supervision While Eating and Drinking for Safe Swallow: Intermittent Supervision Foods to Avoid: Hard, dry, or sticky foods Recommendation for Speech: NA:Typical Evaluation Health Program Analyst Clinican/Clinical Fellow: No Supervisory Statement: I have reviewed and agree with the student/clinical fellow's documentation: N/A Speech Language Pathologist: Suma Bentley M.A., CCC-BILLET ASSEMBLER
[2023-06-03] MEDS: Acetaminophen 325 MG TABLET 650 MG PO (18:45)
[2023-06-03 20:42] VITALS: BP 133/60; PULSE 73; RESP 16; TEMP 36.6; O2SAT 99
[2023-06-04 07:42] VITALS: BP 130/72; PULSE 65; RESP 16; TEMP 37; O2SAT 97
[2023-06-04] MEDS: Famotidine 20 MG TABLET 40 MG PO (08:27)
[2023-06-04] MEDS: buPROPion HCl XL 300 MG TAB.ER.24H PO (08:28)
[2023-06-04] MEDS: Carbidopa/Levodopa 25/100 TABLET 2 TAB PO (08:28)
[2023-06-04] MEDS: PARoxetine HCL 40 MG TABLET PO (08:28)
[2023-06-04] MEDS: clonazePAM 1 MG TABLET PO ×3 (08:29→21:17)
[2023-06-04] MEDS: Carbidopa/Levodopa 25/100 TABLET 1.5 TAB PO ×3 (13:44→21:17)
--- NOTE | 2023-06-04 15:45 | P.PNPSI_ITS ---
Subjective Subjective Date of Service: 06/04/23 Reason For Visit: crisis Interim History: calm, cooperative. c/o depression, back and neck pain. per staff, slept OK, no issues. Mental Status Exam Mental Status Exam Narrative: Pt is alert and oriented; behavior is cooperative and calm; dressed in casual attire; mood is described as depressed ; eye contact appropriate; Speech is slowed, decreased volume and prosody and not pressured; thought process is organized and goal directed; somewhat slowed Thought content is on tx; no SI/HI/AVH expressed. Diagnostics Vital Signs (24Hr): Vital Signs - 24 hr 06/03/23 20:42 06/04/23 07:42 Temperature 97.9 F 98.6 F Pulse Rate 73 65 Respiratory Rate 16 16 Blood Pressure 133/60 130/72 Pulse Oximetry 99 97 Oxygen Delivery Method Room Air Room Air BMI result Body Mass Index 19.5 Labs 05/30/23 16:55 06/01/23 07:27 Medications Medications Current Medications Acetaminophen (Acetaminophen 325 Mg Tablet) 650 mg PO Q6H PRN PRN Reason: Headache/Pain Mild Scale (1-3) Last Admin: 06/03/23 18:45 Dose: 650 mg Al Hydroxide/Mg Hydroxide (Magnesium Hydrox/Alum Hydrox 30 Ml Oral.Susp) 30 ml PO Q6H PRN PRN Reason: Heartburn/Nausea Last Admin: 06/03/23 10:42 Dose: 30 ml Albuterol Sulfate (Albuterol Sulfate 90 Mcg 8 Gm Inhaler) 2 puff INHALE Q6H PRN PRN Reason: shortness of breath or wheezing Bupropion HCl (Bupropion Hcl Xl 300 Mg Tab.Er.24h) 300 mg PO DAILY [facility] Last Admin: 06/04/23 08:28 Dose: 300 mg Carbidopa/Levodopa (Carbidopa/Levodopa 25/100 Tablet) 1.5 tab PO QID [facility] Last Admin: 06/04/23 13:44 Dose: 1.5 tab Clonazepam (Clonazepam 1 Mg Tablet) 1 mg PO TID [facility] Last Admin: 06/04/23 08:29 Dose: 1 mg Famotidine (Famotidine 20 Mg Tablet) 40 mg PO Q48H [facility] Last Admin: 06/04/23 08:27 Dose: 40 mg Hydroxyzine HCl (Hydroxyzine Hcl 25 Mg Tablet) 25 mg PO Q6H PRN PRN Reason: Anxiety Magnesium Hydroxide (Milk Of Magnesia 30 Ml Oral.Susp) 30 ml PO DAILY PRN PRN Reason: Constipation Paroxetine HCl (Paroxetine Hcl 40 Mg Tablet) 40 mg PO DAILY [facility] Last Admin: 06/04/23 08:28 Dose: 40 mg Trazodone HCl (Trazodone Hcl 50 Mg Tablet) 50 mg PO BEDTIME MRX1 PRN PRN Reason: Insomnia Allergies Allergies Allergy/AdvReac Type Severity Reaction Status Date / Time tomato [TOMATO] Allergy Severe ANAPHYLAXIS Verified 05/29/23 14:15 Sulfa (Sulfonamide Allergy Intermediate shaky, ROBLES Verified 05/29/23 14:15 Antibiotics) albuterol Allergy Unknown Unknown Verified 05/29/23 14:15 metoclopramide [Reglan] Allergy Unknown Unknown Verified 05/29/23 14:15 Assessment & Plan Assessment & Plan (1) MDD (major depressive disorder), recurrent episode, severe: Status: Acute Code(s): F33.2 - Major depressive disorder, recurrent severe without psychotic features (2) PTSD (post-traumatic stress disorder): Status: Acute Code(s): F43.10 - Post-traumatic stress disorder, unspecified (3) Parkinson's disease without dyskinesia: Status: Acute Code(s): G20.A1 - Parkinson's disease without dyskinesia, without mention of fluctuations Plan Patient is a 72 year old female with hx of MDD, PTSD and Parkinson's disease who self presented to ER d/t her outpatient psychiatrist suggesting pt should be evaluated secondary to confusion, mood, weight loss and ability to take care of herself. 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 speech eval supports continuing present diet. continue current mgmt for now. 06/03: per consultation with Dr Hanna, her belief is that psychosis is most likely related to primary progression of Parkinson's Dz, yet she recommends decreasing sinemet 25/100 from 2 tabs BID to 1.5 tabs BID, which is done. otherwise continue current mgmt. discuss possibility of ECT with mino. Reason for continued inpatient stay Substantial Risk for: harm to self, inability to function and rapid decompensation Time Spent With Patient Time: Total time managing care of this patient today __35__ minutes.
[2023-06-04 21:19] VITALS: BP 122/58; PULSE 73; RESP 16; TEMP 36.5; O2SAT 96
[2023-06-05] MEDS: Acetaminophen 325 MG TABLET 650 MG PO (06:33)
[2023-06-05 08:15] VITALS: BP 128/64; PULSE 74; RESP 17; TEMP 36.3; O2SAT 98
[2023-06-05] MEDS: Carbidopa/Levodopa 25/100 TABLET 1.5 TAB PO ×4 (09:05→20:39)
[2023-06-05] MEDS: PARoxetine HCL 40 MG TABLET PO (09:05)
[2023-06-05] MEDS: buPROPion HCl XL 300 MG TAB.ER.24H PO (09:06)
[2023-06-05] MEDS: clonazePAM 1 MG TABLET PO ×3 (09:06→20:39)
[2023-06-05] MEDS: Cyclobenzaprine HCl 10 MG TABLET PO (12:32)
--- NOTE | 2023-06-05 14:43 | HO.PSYCHPN ---
Subjective Subjective Date of Service: 06/05/23 Reason For Visit: crisis Interim History: discussoin depression Tx for a time, various options, including meds and ECT. pt reports her outpt provider had supported ECT as an option for her. provided general information to pt on the subject, she expressed continued interest and agreed to have consultation with dr. herzog on the subject. c/o back/neck pain, agreeable to trial of flexeril. reports mood getting a little better. c/o stomach ache from eaing too much. the sense of others following her remains, but attenuated since sinemet dose cut. per staff, visible. + meds. w/drawn. taking meds, slept 7 hours. Mental Status Exam Mental Status Exam Narrative: Pt is alert and oriented; behavior is cooperative and calm; dressed in casual attire; mood is described as depressed ; eye contact appropriate; Speech is slowed, decreased volume and prosody and not pressured; thought process is organized and goal directed; somewhat slowed Thought content is on tx; no SI/HI/AVH expressed. Diagnostics Vital Signs (24Hr): Vital Signs - 24 hr 06/04/23 21:19 Temperature 97.7 F Pulse Rate 73 Respiratory Rate 16 Blood Pressure 122/58 L Pulse Oximetry 96 Oxygen Delivery Method Room Air BMI result Body Mass Index 19.5 Labs 05/30/23 16:55 06/01/23 07:27 Medications Medications Current Medications Acetaminophen (Acetaminophen 325 Mg Tablet) 650 mg PO Q6H PRN PRN Reason: Headache/Pain Mild Scale (1-3) Last Admin: 06/05/23 06:33 Dose: 650 mg Al Hydroxide/Mg Hydroxide (Magnesium Hydrox/Alum Hydrox 30 Ml Oral.Susp) 30 ml PO Q6H PRN PRN Reason: Heartburn/Nausea Last Admin: 06/03/23 10:42 Dose: 30 ml Albuterol Sulfate (Albuterol Sulfate 90 Mcg 8 Gm Inhaler) 2 puff INHALE Q6H PRN PRN Reason: shortness of breath or wheezing Bupropion HCl (Bupropion Hcl Xl 300 Mg Tab.Er.24h) 300 mg PO DAILY [facility] Last Admin: 06/05/23 09:06 Dose: 300 mg Carbidopa/Levodopa (Carbidopa/Levodopa 25/100 Tablet) 1.5 tab PO QID [facility] Last Admin: 06/05/23 12:32 Dose: 1.5 tab Clonazepam (Clonazepam 1 Mg Tablet) 1 mg PO TID [facility] Last Admin: 06/05/23 09:06 Dose: 1 mg Cyclobenzaprine HCl (Cyclobenzaprine Hcl 10 Mg Tablet) 10 mg PO TID PRN PRN Reason: muscle spasm Last Admin: 06/05/23 12:32 Dose: 10 mg Famotidine (Famotidine 20 Mg Tablet) 40 mg PO Q48H [facility] Last Admin: 06/04/23 08:27 Dose: 40 mg Hydroxyzine HCl (Hydroxyzine Hcl 25 Mg Tablet) 25 mg PO Q6H PRN PRN Reason: Anxiety Magnesium Hydroxide (Milk Of Magnesia 30 Ml Oral.Susp) 30 ml PO DAILY PRN PRN Reason: Constipation Paroxetine HCl (Paroxetine Hcl 40 Mg Tablet) 40 mg PO DAILY [facility] Last Admin: 06/05/23 09:05 Dose: 40 mg Trazodone HCl (Trazodone Hcl 50 Mg Tablet) 50 mg PO BEDTIME MRX1 PRN PRN Reason: Insomnia Allergies Allergies Allergy/AdvReac Type Severity Reaction Status Date / Time tomato [TOMATO] Allergy Severe ANAPHYLAXIS Verified 05/29/23 14:15 Sulfa (Sulfonamide Allergy Intermediate shaky, ROBLES Verified 05/29/23 14:15 Antibiotics) albuterol Allergy Unknown Unknown Verified 05/29/23 14:15 metoclopramide [Reglan] Allergy Unknown Unknown Verified 05/29/23 14:15 Assessment & Plan Assessment & Plan (1) MDD (major depressive disorder), recurrent episode, severe: Status: Acute Code(s): F33.2 - Major depressive disorder, recurrent severe without psychotic features (2) PTSD (post-traumatic stress disorder): Status: Acute Code(s): F43.10 - Post-traumatic stress disorder, unspecified (3) Parkinson's disease without dyskinesia: Status: Acute Code(s): G20.A1 - Parkinson's disease without dyskinesia, without mention of fluctuations Plan Patient is a 72 year old female with hx of MDD, PTSD and Parkinson's disease who self presented to ER d/t her outpatient psychiatrist suggesting pt should be evaluated secondary to confusion, mood, weight loss and ability to take care of herself. 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 speech eval supports continuing present diet. continue current mgmt for now. 06/03: per consultation with Dr Hanna, her belief is that psychosis is most likely related to primary progression of Parkinson's Dz, yet she recommends decreasing sinemet 25/100 from 2 tabs BID to 1.5 tabs BID, which is done. otherwise continue current mgmt. discuss possibility of ECT with mino. 06/04: refer for ECT consultation as outpt provider supportive, pt interested. per jacques, no neuro objection. add flexeril PRN spasm, consults for medical risk stratification and ECT, PT consult for LBP/spasm for exercises and positioning. Reason for continued inpatient stay Substantial Risk for: inability to function and rapid decompensation Time Spent With Patient Time: Total time managing care of this patient today __35__ minutes.
--- NOTE | 2023-06-05 14:55 | PM.EVENT ---
Event Note Date of Service: 06/05/23 Event Note: 72 year old female with history of copd, parkinsons disease, mdd, ckd stage admitted to psychiatry with consult placed to hospitalist service for ECT evaluation. The patient has no known history of seizure acticity. No know cvd or chf. She reports her copd is overall well controlled. She denies sob or wheezing. States occassionally she feels like she is unable to fully breathe out. CO2 levels 29-31. Vital stable, no hypoxia. She is able to climb stairs and walk distance without getting short of breath or developing chest pain. No lightheadedness or palpations. Reports sinemet dose was recently lowered and she has been more tremulous since. Her neurlogist, Dr. James has recommended her for ECT and she is interested in pursuing this. At this time there is no medical contraindication that would preclude her from undergoing ECT. Time Spent With Patient Time: Total time managing care of this patient today ____ minutes.
[2023-06-05 20:15] VITALS: BP 126/60; PULSE 90; RESP 16; TEMP 36.4
[2023-06-06 06:00] VITALS: BP 123/59; PULSE 58; RESP 16; O2SAT 98
[2023-06-06 07:00] VITALS: BMI 22.3
[2023-06-06] MEDS: clonazePAM 1 MG TABLET PO (08:50)
[2023-06-06] MEDS: buPROPion HCl XL 300 MG TAB.ER.24H PO (08:50)
[2023-06-06] MEDS: Carbidopa/Levodopa 25/100 TABLET 1.5 TAB PO ×3 (08:50→17:45)
[2023-06-06] MEDS: Famotidine 20 MG TABLET 40 MG PO (08:50)
[2023-06-06] MEDS: PARoxetine HCL 40 MG TABLET PO (08:51)
[2023-06-06] MEDS: Cyclobenzaprine HCl 10 MG TABLET PO (13:45)
--- NOTE | 2023-06-06 14:41 | HO.PSYCHPN ---
Subjective Subjective Date of Service: 06/06/23 Reason For Visit: crisis Interim History: calm, cooperative. faster responses, more engaging today. interested in literature about ECT. will speak with mino today. per staff, dep/anx. flat. +groups. slept 8 hours. Mental Status Exam Mental Status Exam Narrative: Pt is alert and oriented; behavior is cooperative and calm; dressed in casual attire; mood is described as depressed ; eye contact appropriate; Speech is faster, louder, less THAI than prior; thought process is organized and goal directed; thought content is on tx; no SI/HI/AVH expressed. Diagnostics Vital Signs (24Hr): Vital Signs - 24 hr 06/05/23 20:15 06/06/23 06:00 Temperature 97.5 F Pulse Rate 90 58 Respiratory Rate 16 16 Blood Pressure 126/60 123/59 L Pulse Oximetry 98 Oxygen Delivery Method Room Air BMI result Body Mass Index 22.3 Labs 05/30/23 16:55 06/01/23 07:27 Medications Medications Current Medications Acetaminophen (Acetaminophen 325 Mg Tablet) 650 mg PO Q6H PRN PRN Reason: Headache/Pain Mild Scale (1-3) Last Admin: 06/05/23 06:33 Dose: 650 mg Al Hydroxide/Mg Hydroxide (Magnesium Hydrox/Alum Hydrox 30 Ml Oral.Susp) 30 ml PO Q6H PRN PRN Reason: Heartburn/Nausea Last Admin: 06/03/23 10:42 Dose: 30 ml Albuterol Sulfate (Albuterol Sulfate 90 Mcg 8 Gm Inhaler) 2 puff INHALE Q6H PRN PRN Reason: shortness of breath or wheezing Bupropion HCl (Bupropion Hcl Xl 300 Mg Tab.Er.24h) 300 mg PO DAILY [facility] Last Admin: 06/06/23 08:50 Dose: 300 mg Carbidopa/Levodopa (Carbidopa/Levodopa 25/100 Tablet) 1.5 tab PO QID [facility] Last Admin: 06/06/23 13:46 Dose: 1.5 tab Clonazepam (Clonazepam 1 Mg Tablet) 0.75 mg PO TID [facility] Cyclobenzaprine HCl (Cyclobenzaprine Hcl 10 Mg Tablet) 10 mg PO TID PRN PRN Reason: muscle spasm Last Admin: 06/06/23 13:45 Dose: 10 mg Famotidine (Famotidine 20 Mg Tablet) 40 mg PO Q48H [facility] Last Admin: 06/06/23 08:50 Dose: 40 mg Hydroxyzine HCl (Hydroxyzine Hcl 25 Mg Tablet) 25 mg PO Q6H PRN PRN Reason: Anxiety Magnesium Hydroxide (Milk Of Magnesia 30 Ml Oral.Susp) 30 ml PO DAILY PRN PRN Reason: Constipation Paroxetine HCl (Paroxetine Hcl 40 Mg Tablet) 40 mg PO DAILY [facility] Last Admin: 06/06/23 08:51 Dose: 40 mg Trazodone HCl (Trazodone Hcl 50 Mg Tablet) 50 mg PO BEDTIME MRX1 PRN PRN Reason: Insomnia Allergies Allergies Allergy/AdvReac Type Severity Reaction Status Date / Time tomato [TOMATO] Allergy Severe ANAPHYLAXIS Verified 05/29/23 14:15 Sulfa (Sulfonamide Allergy Intermediate susan, ROBLES Verified 05/29/23 14:15 Antibiotics) albuterol Allergy Unknown Unknown Verified 05/29/23 14:15 metoclopramide [Reglan] Allergy Unknown Unknown Verified 05/29/23 14:15 Assessment & Plan Assessment & Plan (1) MDD (major depressive disorder), recurrent episode, severe: Status: Acute Code(s): F33.2 - Major depressive disorder, recurrent severe without psychotic features (2) PTSD (post-traumatic stress disorder): Status: Acute Code(s): F43.10 - Post-traumatic stress disorder, unspecified (3) Parkinson's disease without dyskinesia: Status: Acute Code(s): G20.A1 - Parkinson's disease without dyskinesia, without mention of fluctuations Plan Patient is a 72 year old female with hx of MDD, PTSD and Parkinson's disease who self presented to ER d/t her outpatient psychiatrist suggesting pt should be evaluated secondary to confusion, mood, weight loss and ability to take care of herself. 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 speech eval supports continuing present diet. continue current mgmt for now. 06/03: per consultation with Dr Hanna, her belief is that psychosis is most likely related to primary progression of Parkinson's Dz, yet she recommends decreasing sinemet 25/100 from 2 tabs BID to 1.5 tabs BID, which is done. otherwise continue current mgmt. discuss possibility of ECT with mino. 06/04: refer for ECT consultation as outpt provider supportive, pt interested. per jacques, no neuro objection. add flexeril PRN spasm, consults for medical risk stratification and ECT, PT consult for LBP/spasm for exercises and positioning. 06/05: some mild improvement in PMR. interested in ECT. seen by mino and medicine for risk stratification. provided written education re ECT. on klonopin 1 TID, will decrease to 0.75 TID today, with further tapering over w/e. planning for ECT saturday. Reason for continued inpatient stay Substantial Risk for: harm to self and inability to function Time Spent With Patient Time: Total time managing care of this patient today __25__ minutes.
[2023-06-06] MEDS: clonazePAM 1 MG TABLET 0.75 MG PO (15:14)
--- NOTE | 2023-06-06 18:28 | PC.NURSE ---
Pt ordered a roast beef sandwich with roast beef, lettuce and cheese. Pt received a sandwich with tomatoes on it. Pt has a tomato allergy with an anaphylactic response. Pt was able to identify the tomato and return the sandwich to staff before eating it. This concern was reported to dietary. Pt had also received a salad with tomatoes in it on another shift which was called and reported to dietary.
[2023-06-06 20:15] VITALS: BP 115/55; PULSE 82; RESP 16; TEMP 37.2; O2SAT 99
[2023-06-07] MEDS: clonazePAM 1 MG TABLET 0.75 MG PO ×2 (00:03→09:39)
[2023-06-07] MEDS: Carbidopa/Levodopa 25/100 TABLET 1.5 TAB PO ×5 (00:04→21:18)
[2023-06-07] MEDS: Acetaminophen 325 MG TABLET 650 MG PO (00:05)
[2023-06-07] MEDS: Cyclobenzaprine HCl 10 MG TABLET PO (00:05)
[2023-06-07 06:00] VITALS: BP 118/59; PULSE 63; RESP 16; TEMP 37.9; O2SAT 99
[2023-06-07] MEDS: PARoxetine HCL 40 MG TABLET PO (09:39)
[2023-06-07] MEDS: buPROPion HCl XL 300 MG TAB.ER.24H PO (09:40)
[2023-06-07] MEDS: LORazepam 1 MG TABLET PO ×2 (13:42→21:18)
--- NOTE | 2023-06-07 15:15 | P.PNPSI_ITS ---
Subjective Subjective Date of Service: 06/07/23 Reason For Visit: crisis Interim History: calm, cooperative. tremor continues ( not great ), mood depressed. feeling shaky and generally unwell. discuss possibility of some benzo withdrawal due to klonopin taper. per staff, dep 8, anx 5. periods of confusion. using flexeril PRNs for back pain. Mental Status Exam Mental Status Exam Narrative: Pt is alert and oriented; behavior is cooperative and calm; dressed in casual attire; mood is described as depressed ; eye contact appropriate; Speech is faster, louder, less THAI than prior; thought process is organized and goal directed; thought content is on tx; no SI/HI/AVH expressed. Diagnostics Vital Signs (24Hr): Vital Signs - 24 hr 06/06/23 20:15 06/07/23 06:00 Temperature 98.9 F 100.2 F Pulse Rate 82 63 Respiratory Rate 16 16 Blood Pressure 115/55 L 118/59 L Pulse Oximetry 99 99 Oxygen Delivery Method Room Air Room Air BMI result Body Mass Index 22.3 Labs 05/30/23 16:55 06/01/23 07:27 Medications Medications Current Medications Acetaminophen (Acetaminophen 325 Mg Tablet) 650 mg PO Q6H PRN PRN Reason: Headache/Pain Mild Scale (1-3) Last Admin: 06/07/23 00:05 Dose: 650 mg Al Hydroxide/Mg Hydroxide (Magnesium Hydrox/Alum Hydrox 30 Ml Oral.Susp) 30 ml PO Q6H PRN PRN Reason: Heartburn/Nausea Last Admin: 06/03/23 10:42 Dose: 30 ml Albuterol Sulfate (Albuterol Sulfate 90 Mcg 8 Gm Inhaler) 2 puff INHALE Q6H PRN PRN Reason: shortness of breath or wheezing Bupropion HCl (Bupropion Hcl Xl 300 Mg Tab.Er.24h) 300 mg PO DAILY [facility] Last Admin: 06/07/23 09:40 Dose: 300 mg Carbidopa/Levodopa (Carbidopa/Levodopa 25/100 Tablet) 1.5 tab PO QID [facility] Last Admin: 06/07/23 13:41 Dose: 1.5 tab Cyclobenzaprine HCl (Cyclobenzaprine Hcl 10 Mg Tablet) 10 mg PO TID PRN PRN Reason: muscle spasm Last Admin: 06/07/23 00:05 Dose: 10 mg Famotidine (Famotidine 20 Mg Tablet) 40 mg PO Q48H [facility] Last Admin: 06/06/23 08:50 Dose: 40 mg Hydroxyzine HCl (Hydroxyzine Hcl 25 Mg Tablet) 25 mg PO Q6H PRN PRN Reason: Anxiety Lorazepam (Lorazepam 1 Mg Tablet) 1 mg PO TID [facility] Magnesium Hydroxide (Milk Of Magnesia 30 Ml Oral.Susp) 30 ml PO DAILY PRN PRN Reason: Constipation Paroxetine HCl (Paroxetine Hcl 40 Mg Tablet) 40 mg PO DAILY [facility] Last Admin: 06/07/23 09:39 Dose: 40 mg Trazodone HCl (Trazodone Hcl 50 Mg Tablet) 50 mg PO BEDTIME MRX1 PRN PRN Reason: Insomnia Allergies Allergies Allergy/AdvReac Type Severity Reaction Status Date / Time tomato [TOMATO] Allergy Severe ANAPHYLAXIS Verified 05/29/23 14:15 Sulfa (Sulfonamide Allergy Intermediate shaky, ROBLES Verified 05/29/23 14:15 Antibiotics) albuterol Allergy Unknown Unknown Verified 05/29/23 14:15 metoclopramide [Reglan] Allergy Unknown Unknown Verified 05/29/23 14:15 Assessment & Plan Assessment & Plan (1) MDD (major depressive disorder), recurrent episode, severe: Status: Acute Code(s): F33.2 - Major depressive disorder, recurrent severe without psychotic features (2) PTSD (post-traumatic stress disorder): Status: Acute Code(s): F43.10 - Post-traumatic stress disorder, unspecified (3) Parkinson's disease without dyskinesia: Status: Acute Code(s): G20.A1 - Parkinson's disease without dyskinesia, without mention of fluctuations Plan Patient is a 72 year old female with hx of MDD, PTSD and Parkinson's disease who self presented to ER d/t her outpatient psychiatrist suggesting pt should be evaluated secondary to confusion, mood, weight loss and ability to take care of herself. 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 speech eval supports continuing present diet. continue current mgmt for now. 06/03: per consultation with Dr Hanna, her belief is that psychosis is most likely related to primary progression of Parkinson's Dz, yet she recommends decreasing sinemet 25/100 from 2 tabs BID to 1.5 tabs BID, which is done. otherwise continue current mgmt. discuss possibility of ECT with mino. 06/04: refer for ECT consultation as outpt provider supportive, pt interested. per jacques, no neuro objection. add flexeril PRN spasm, consults for medical risk stratification and ECT, PT consult for LBP/spasm for exercises and positioning. 06/05: some mild improvement in PMR. interested in ECT. seen by mino and medicine for risk stratification. provided written education re ECT. on klonopin 1 TID, will decrease to 0.75 TID today, with further tapering over w/. planning for ECT saturday. 06/06: DC klonopin and start ativan 1 mg TID in its place. hold HS dose on saturday kenny prior to ECT. PT recs noted. otherwise continue current mgmt. Reason for continued inpatient stay Substantial Risk for: inability to function and rapid decompensation Time Spent With Patient Time: Total time managing care of this patient today __25__ minutes.
[2023-06-07 20:15] VITALS: BP 121/63; PULSE 73; RESP 16; TEMP 36.7; O2SAT 96
[2023-06-08 09:20] VITALS: BP 127/76; PULSE 74; RESP 16; TEMP 36.6; O2SAT 98
[2023-06-08] MEDS: buPROPion HCl XL 300 MG TAB.ER.24H PO (09:25)
[2023-06-08] MEDS: PARoxetine HCL 40 MG TABLET PO (09:25)
[2023-06-08] MEDS: Carbidopa/Levodopa 25/100 TABLET 1.5 TAB PO ×4 (09:25→20:34)
[2023-06-08] MEDS: Famotidine 20 MG TABLET 40 MG PO (09:26)
[2023-06-08] MEDS: LORazepam 1 MG TABLET PO ×3 (09:26→20:34)
--- NOTE | 2023-06-08 14:09 | P.PNPSI_ITS ---
Subjective Subjective Date of Service: 06/08/23 Reason For Visit: crisis Subjective Notes: Conditional Voluntary Interim History: The nursing staff reported the patient have complained of sporadic auditory hallucinations and paranoia. She was concerns due to the recent med changes, she is scheduled to have ECT next Saturday. On interview I explained to the patient that she needs to be off Klonopin order to have a good seizure in Ativan would be a suitable combination. At this moment she denies new symptoms besides some paranoia due to Sinemet. Mental Status Exam Mental Status Exam Patient Appearance: Well Grooomed and Appropriate Patient Orientation: Person and Situation Level of Consciousness: Awake and Appropriate Patient Behavior: Guarded and Passive Mood Description: Withdrawn Affect Description: Calm Ability to Follow Directions: Good Speech Pattern: Clear Hallucinations: None Delusions: Not Present Thought Process: Distracted and Evasive Thought Content: positive for [place] and positive for Poverty of Content Judgement: Fair Diagnostics Vital Signs (24Hr): Vital Signs - 24 hr 06/07/23 20:15 06/08/23 09:20 Temperature 98.0 F 98 F Pulse Rate 73 74 Respiratory Rate 16 16 Blood Pressure 121/63 127/76 Pulse Oximetry 96 98 Oxygen Delivery Method Room Air Room Air BMI result Body Mass Index 22.3 Labs 05/30/23 16:55 06/01/23 07:27 Medications Medications Current Medications Acetaminophen (Acetaminophen 325 Mg Tablet) 650 mg PO Q6H PRN PRN Reason: Headache/Pain Mild Scale (1-3) Last Admin: 06/07/23 00:05 Dose: 650 mg Al Hydroxide/Mg Hydroxide (Magnesium Hydrox/Alum Hydrox 30 Ml Oral.Susp) 30 ml PO Q6H PRN PRN Reason: Heartburn/Nausea Last Admin: 06/03/23 10:42 Dose: 30 ml Albuterol Sulfate (Albuterol Sulfate 90 Mcg 8 Gm Inhaler) 2 puff INHALE Q6H PRN PRN Reason: shortness of breath or wheezing Bupropion HCl (Bupropion Hcl Xl 300 Mg Tab.Er.24h) 300 mg PO DAILY [facility] Last Admin: 06/08/23 09:25 Dose: 300 mg Carbidopa/Levodopa (Carbidopa/Levodopa 25/100 Tablet) 1.5 tab PO QID [facility] Last Admin: 06/08/23 12:50 Dose: 1.5 tab Cyclobenzaprine HCl (Cyclobenzaprine Hcl 10 Mg Tablet) 10 mg PO TID PRN PRN Reason: muscle spasm Last Admin: 06/07/23 00:05 Dose: 10 mg Famotidine (Famotidine 20 Mg Tablet) 40 mg PO Q48H [facility] Last Admin: 06/08/23 09:26 Dose: 40 mg Hydroxyzine HCl (Hydroxyzine Hcl 25 Mg Tablet) 25 mg PO Q6H PRN PRN Reason: Anxiety Lorazepam (Lorazepam 1 Mg Tablet) 1 mg PO TID [facility] Last Admin: 06/08/23 09:26 Dose: 1 mg Magnesium Hydroxide (Milk Of Magnesia 30 Ml Oral.Susp) 30 ml PO DAILY PRN PRN Reason: Constipation Paroxetine HCl (Paroxetine Hcl 40 Mg Tablet) 40 mg PO DAILY [facility] Last Admin: 06/08/23 09:25 Dose: 40 mg Trazodone HCl (Trazodone Hcl 50 Mg Tablet) 50 mg PO BEDTIME MRX1 PRN PRN Reason: Insomnia Allergies Allergies Allergy/AdvReac Type Severity Reaction Status Date / Time tomato [TOMATO] Allergy Severe ANAPHYLAXIS Verified 05/29/23 14:15 Sulfa (Sulfonamide Allergy Intermediate [place], ROBLES Verified 05/29/23 14:15 Antibiotics) albuterol Allergy Unknown Unknown Verified 05/29/23 14:15 metoclopramide [Reglan] Allergy Unknown Unknown Verified 05/29/23 14:15 Assessment & Plan Assessment & Plan (1) MDD (major depressive disorder), recurrent episode, severe: Status: Acute Code(s): F33.2 - Major depressive disorder, recurrent severe without psychotic features (2) PTSD (post-traumatic stress disorder): Status: Acute Code(s): F43.10 - Post-traumatic stress disorder, unspecified (3) Parkinson's disease without dyskinesia: Status: Acute Code(s): G20.A1 - Parkinson's disease without dyskinesia, without mention of fluctuations Plan Patient is a 72 year old female with hx of MDD, PTSD and Parkinson's disease who self presented to ER d/t her outpatient psychiatrist suggesting pt should be evaluated secondary to confusion, mood, weight loss and ability to take care of herself. Plan: CV 15 minute safety checks continue home medications referral to outpatient therapist referral to [facility] Consult to employment supervisor discharge planning 06/02/2023 Neuro consult question parkinsonian hallucinations versus psychotic symptoms with Parkinson's patient on Paxil Wellbutrin might consider ECT will get swallowing study neuro consult consider Seroquel 06/02: will consult with outpt neuro MD hanna. speech eval supports continuing present diet. continue current mgmt for now. 06/03: per consultation with Dr Hanna, her belief is that psychosis is most likely related to primary progression of Parkinson's Dz, yet she recommends decreasing sinemet 25/100 from 2 tabs BID to 1.5 tabs BID, which is done. otherwise continue current mgmt. discuss possibility of ECT with mino. 06/04: refer for ECT consultation as outpt provider supportive, pt interested. per jacques, no neuro objection. add flexeril PRN spasm, consults for medical risk stratification and ECT, PT consult for LBP/spasm for exercises and positioning. 06/05: some mild improvement in PMR. interested in ECT. seen by mino and medicine for risk stratification. provided written education re ECT. on klonopin 1 TID, will decrease to 0.75 TID today, with further tapering over w/e. planning for ECT saturday. 06/06: DC klonopin and start ativan 1 mg TID in its place. hold HS dose on saturday kenny prior to ECT. PT recs noted. otherwise continue current mgmt. 06/07 keep same treatment Reason for continued inpatient stay Substantial Risk for: inability to function, rapid decompensation and med/psych decompensation Time Spent With Patient Time: Total time managing care of this patient today __20__ minutes.
[2023-06-08 20:30] VITALS: BP 128/61; PULSE 76; RESP 16; TEMP 36.7; O2SAT 99
[2023-06-08] MEDS: Acetaminophen 325 MG TABLET 650 MG PO (22:43)
[2023-06-08] MEDS: Cyclobenzaprine HCl 10 MG TABLET PO (22:44)
[2023-06-09 07:25] VITALS: BP 137/64; PULSE 62; RESP 12; TEMP 36.9; O2SAT 98
[2023-06-09] MEDS: Carbidopa/Levodopa 25/100 TABLET 1.5 TAB PO ×4 (09:14→21:56)
[2023-06-09] MEDS: LORazepam 1 MG TABLET PO ×2 (09:14→14:35)
[2023-06-09] MEDS: PARoxetine HCL 40 MG TABLET PO (09:15)
[2023-06-09] MEDS: buPROPion HCl XL 300 MG TAB.ER.24H PO (09:16)
--- NOTE | 2023-06-09 13:02 | HO.PSYCHPN ---
Subjective Subjective Date of Service: 06/09/23 Reason For Visit: crisis Subjective Notes: Conditional Voluntary Interim History: The nursing staff reported no changes in her mental status, fully compliant with treatment. On interview the patient denies new symptoms a little anxious since she is going to have ECT tomorrow morning. Mental Status Exam Mental Status Exam Patient Appearance: Well Grooomed Patient Orientation: Person Level of Consciousness: Awake Patient Behavior: Guarded and Passive Mood Description: Withdrawn Affect Description: Constricted Patient Cognition Impaired: Yes Ability to Follow Directions: Good Speech Pattern: Clear Delusions: Not Present Thought Process: Linear Thought Content: positive for Circumstantial Judgement: Fair Diagnostics Vital Signs (24Hr): Vital Signs - 24 hr 06/08/23 20:30 06/09/23 07:25 Temperature 98.0 F 98.4 F Pulse Rate 76 62 Respiratory Rate 16 12 Blood Pressure 128/61 137/64 Pulse Oximetry 99 98 Oxygen Delivery Method Room Air Room Air BMI result Body Mass Index 22.3 Labs 05/30/23 16:55 06/01/23 07:27 Medications Medications Current Medications Acetaminophen (Acetaminophen 325 Mg Tablet) 650 mg PO Q6H PRN PRN Reason: Headache/Pain Mild Scale (1-3) Last Admin: 06/08/23 22:43 Dose: 650 mg Al Hydroxide/Mg Hydroxide (Magnesium Hydrox/Alum Hydrox 30 Ml Oral.Susp) 30 ml PO Q6H PRN PRN Reason: Heartburn/Nausea Last Admin: 06/03/23 10:42 Dose: 30 ml Albuterol Sulfate (Albuterol Sulfate 90 Mcg 8 Gm Inhaler) 2 puff INHALE Q6H PRN PRN Reason: shortness of breath or wheezing Bupropion HCl (Bupropion Hcl Xl 300 Mg Tab.Er.24h) 300 mg PO DAILY [facility] Last Admin: 06/09/23 09:16 Dose: 300 mg Carbidopa/Levodopa (Carbidopa/Levodopa 25/100 Tablet) 1.5 tab PO QID [facility] Last Admin: 06/09/23 09:14 Dose: 1.5 tab Cyclobenzaprine HCl (Cyclobenzaprine Hcl 10 Mg Tablet) 10 mg PO TID PRN PRN Reason: muscle spasm Last Admin: 06/08/23 22:44 Dose: 10 mg Famotidine (Famotidine 20 Mg Tablet) 40 mg PO Q48H [facility] Last Admin: 06/08/23 09:26 Dose: 40 mg Hydroxyzine HCl (Hydroxyzine Hcl 25 Mg Tablet) 25 mg PO Q6H PRN PRN Reason: Anxiety Lorazepam (Lorazepam 1 Mg Tablet) 1 mg PO TID [facility] Last Admin: 06/09/23 09:14 Dose: 1 mg Magnesium Hydroxide (Milk Of Magnesia 30 Ml Oral.Susp) 30 ml PO DAILY PRN PRN Reason: Constipation Paroxetine HCl (Paroxetine Hcl 40 Mg Tablet) 40 mg PO DAILY [facility] Last Admin: 06/09/23 09:15 Dose: 40 mg Trazodone HCl (Trazodone Hcl 50 Mg Tablet) 50 mg PO BEDTIME MRX1 PRN PRN Reason: Insomnia Allergies Allergies Allergy/AdvReac Type Severity Reaction Status Date / Time tomato [TOMATO] Allergy Severe ANAPHYLAXIS Verified 05/29/23 14:15 Sulfa (Sulfonamide Allergy Intermediate shaky, ROBLES Verified 05/29/23 14:15 Antibiotics) albuterol Allergy Unknown Unknown Verified 05/29/23 14:15 metoclopramide [Reglan] Allergy Unknown Unknown Verified 05/29/23 14:15 Assessment & Plan Assessment & Plan (1) MDD (major depressive disorder), recurrent episode, severe: Status: Acute Code(s): F33.2 - Major depressive disorder, recurrent severe without psychotic features (2) PTSD (post-traumatic stress disorder): Status: Acute Code(s): F43.10 - Post-traumatic stress disorder, unspecified (3) Parkinson's disease without dyskinesia: Status: Acute Code(s): G20.A1 - Parkinson's disease without dyskinesia, without mention of fluctuations Plan Patient is a 72 year old female with hx of MDD, PTSD and Parkinson's disease who self presented to ER d/t her outpatient psychiatrist suggesting pt should be evaluated secondary to confusion, mood, weight loss and ability to take care of herself. Plan: CV 15 minute safety checks continue home medications referral to outpatient therapist referral to [facility] Consult to patron attendant discharge planning 06/02/2023 Neuro consult question parkinsonian hallucinations versus psychotic symptoms with Parkinson's patient on Paxil Wellbutrin might consider ECT will get swallowing study neuro consult consider Seroquel 06/02: will consult with outpt neuro MD hanna. speech eval supports continuing present diet. continue current mgmt for now. 06/03: per consultation with Dr Hanna, her belief is that psychosis is most likely related to primary progression of Parkinson's Dz, yet she recommends decreasing sinemet 25/100 from 2 tabs BID to 1.5 tabs BID, which is done. otherwise continue current mgmt. discuss possibility of ECT with mino. 06/04: refer for ECT consultation as outpt provider supportive, pt interested. per jacques, no neuro objection. add flexeril PRN spasm, consults for medical risk stratification and ECT, PT consult for LBP/spasm for exercises and positioning. 06/05: some mild improvement in PMR. interested in ECT. seen by mino and medicine for risk stratification. provided written education re ECT. on klonopin 1 TID, will decrease to 0.75 TID today, with further tapering over w/. planning for ECT saturday. 06/06: DC klonopin and start ativan 1 mg TID in its place. hold HS dose on saturday kenny prior to ECT. PT recs noted. otherwise continue current mgmt. 06/07 keep same treatment. 06/08 keep same treatment. Reason for continued inpatient stay Substantial Risk for: inability to function, rapid decompensation and med/psych decompensation Time Spent With Patient Time: Total time managing care of this patient today ___20_ minutes.
[2023-06-09 18:00] VITALS: BP 131/72; PULSE 70; RESP 16; TEMP 36.6; O2SAT 98
[2023-06-10] VITALS (10 sets, daily range): BP systolic 110–171; BP diastolic 60–80; PULSE 68–89; RESP 12–18; TEMP 36.2–36.7; O2SAT 96–100
--- NOTE | 2023-06-10 06:59 | MHC.SHP ---
Pre-Procedural Eval Section A - 24 Hr Update-Section A only Date of Service: 06/10/23 The patient is an INPATIENT: Yes Changes since office visit: No Cold of Flu in the past 2 weeks, No New Medical Problems, No Changes in Medication and No Patient answered all questions Section B - Complete if H&P > 30 days Chief Complaint: crisis Details of Present Illness: The patient has a hx of MDD, not improving with AD, currently inpatient, started a ECT today Relevant Family History (Specify if Yes): No Relevant Social History: None Present Medications: see Short Stay Collaborative assessment Medical History: No relevant PMH History of Previous Operations: No relevant previous surgery Allergies: Allergies Allergy/AdvReac Type Severity Reaction Status Date / Time tomato [TOMATO] Allergy Severe ANAPHYLAXIS Verified 05/29/23 14:15 Sulfa (Sulfonamide Allergy Intermediate susan, ROBLES Verified 05/29/23 14:15 Antibiotics) albuterol Allergy Unknown Unknown Verified 05/29/23 14:15 metoclopramide [Reglan] Allergy Unknown Unknown Verified 05/29/23 14:15 Review of Systems Sugical H&P ROS: Negative: Constitution, Cardiovascular, Respiratory, Neurological, Psychiatric, Hem-Onc, Allergic/Immunologic, Gastrointestinal, Genitourinary, Musculoskeletal, Integumentary, Endocrine and Eyes/Ears/Nose/Throat Exam Surgical H&P Exam: Normal: HEENT, Normal: Heart, Normal: Lungs, Normal: Extremities, Normal: Abdomen, Normal: Skin and Normal: Neurological Plan Diagnosis/Plan: Unchanged I have reviewed the history and physical and performed a pertinent physical examination on my patient. No changes have occurred unless specified. Time Spent With Patient Time: Total time managing care of this patient today _20___ minutes.
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
--- NOTE | 2023-06-10 07:54 | HO.ECTPROC ---
ECT Procedure Note Diagnosis/Treatment Date of Service: 06/10/23 Diagnosis: Major Depressive Disorder Current Treatment Number: 1 Treatment: Series Interval Clinical Notes: The patient reported mild anxieyt since it is her first ECT. Dysphoric. She is on Ativan taper, she was concerned about medication changes. ECT done without Flumazenil since her last dose of Ativan was over 12h. She had a good seizure, sedation was optimal. Woke up well, no complications. Time: Total time managing care of this patient today ____ minutes. ECT Settings Device: THYMATRON DGx Electrode Placement: Right Unilateral Program/Pulse Width: 0.25 Energy Percent: 100 Seizure Duration By EEG (in seconds): 59 By Motor Observation (in seconds): 38 Medications Administration General Anesthetic: Etomidate (12) Muscle Relaxant: Succinylcholine (80) Ancillary Medications Miscillaneous Medications: Propofol (after the resolution of the Sz) Airway Management Airway Management: Bag Mask Ventilation Treatment Recommendations Electrode Placement: Right Unilateral Program/Pulse Width: 0.25 Energy Percent: 80 Notes: Probably we should use Flumazenil if the patient is still on benzos on the next treatment. Pt Tolerated Procedure w/o Issue: Yes
[2023-06-10] MEDS: buPROPion HCl XL 300 MG TAB.ER.24H PO (09:52)
[2023-06-10] MEDS: Famotidine 20 MG TABLET 40 MG PO (09:52)
[2023-06-10] MEDS: Acetaminophen 325 MG TABLET 650 MG PO (09:52)
[2023-06-10] MEDS: PARoxetine HCL 40 MG TABLET PO (09:53)
[2023-06-10] MEDS: LORazepam 1 MG TABLET PO ×3 (09:53→20:19)
[2023-06-10] MEDS: Carbidopa/Levodopa 25/100 TABLET 1.5 TAB PO ×4 (09:53→20:19)
--- NOTE | 2023-06-10 14:42 | HO.PSYCHPN ---
Subjective Subjective Date of Service: 06/10/23 Reason For Visit: crisis Interim History: reports ECT went well. ROBLES, got tylenol. per staff, no groups. isolative. appears to be sleeping well (informed MD that she is not due to roommate's nocturnal activities). Mental Status Exam Mental Status Exam Narrative: Pt is alert and oriented; behavior is cooperative and calm; dressed in casual attire; mood is not assessed; eye contact appropriate; Speech is soft and slowed; thought process is organized and goal directed; thought content is on tx; no SI/HI/AVH expressed. Diagnostics Vital Signs (24Hr): Vital Signs - 24 hr 06/09/23 18:00 06/10/23 06:21 06/10/23 06:27 Temperature 98 F 97.8 F 97.8 F Pulse Rate 70 74 68 Respiratory Rate 16 16 15 Blood Pressure 131/72 135/61 142/63 H Pulse Oximetry 98 97 100 Oxygen Delivery Method Room Air Room Air Oxygen Flow Rate 06/10/23 08:00 06/10/23 08:05 06/10/23 08:10 Temperature 97.2 F Pulse Rate 70 73 84 Respiratory Rate 12 12 12 Blood Pressure 171/80 H 153/75 H 150/71 H Pulse Oximetry 100 99 99 Oxygen Delivery Method Nasal Cannula with ETCO2 Nasal Cannula with ETCO2 Nasal Cannula with ETCO2 Oxygen Flow Rate 2 2 2 06/10/23 08:15 06/10/23 08:30 06/10/23 08:45 Temperature 97.3 F Pulse Rate 89 80 80 Respiratory Rate 14 15 16 Blood Pressure 163/74 H 146/71 H 149/71 H Pulse Oximetry 97 97 97 Oxygen Delivery Method Room Air Room Air Room Air Oxygen Flow Rate 2 06/10/23 10:24 Temperature 98.0 F Pulse Rate 82 Respiratory Rate 18 Blood Pressure 141/74 H Pulse Oximetry 96 Oxygen Delivery Method Oxygen Flow Rate BMI result Body Mass Index 22.3 Labs 05/30/23 16:55 06/01/23 07:27 Medications Medications Current Medications Acetaminophen (Acetaminophen 325 Mg Tablet) 650 mg PO Q6H PRN PRN Reason: Headache/Pain Mild Scale (1-3) Last Admin: 06/10/23 09:52 Dose: 650 mg Al Hydroxide/Mg Hydroxide (Magnesium Hydrox/Alum Hydrox 30 Ml Oral.Susp) 30 ml PO Q6H PRN PRN Reason: Heartburn/Nausea Last Admin: 06/03/23 10:42 Dose: 30 ml Albuterol Sulfate (Albuterol Sulfate 90 Mcg 8 Gm Inhaler) 2 puff INHALE Q6H PRN PRN Reason: shortness of breath or wheezing Bupropion HCl (Bupropion Hcl Xl 300 Mg Tab.Er.24h) 300 mg PO DAILY [facility] Last Admin: 06/10/23 09:52 Dose: 300 mg Carbidopa/Levodopa (Carbidopa/Levodopa 25/100 Tablet) 1.5 tab PO QID [facility] Last Admin: 06/10/23 12:27 Dose: 1.5 tab Cyclobenzaprine HCl (Cyclobenzaprine Hcl 10 Mg Tablet) 10 mg PO TID PRN PRN Reason: muscle spasm Last Admin: 06/08/23 22:44 Dose: 10 mg Famotidine (Famotidine 20 Mg Tablet) 40 mg PO Q48H [facility] Last Admin: 06/10/23 09:52 Dose: 40 mg Hydroxyzine HCl (Hydroxyzine Hcl 25 Mg Tablet) 25 mg PO Q6H PRN PRN Reason: Anxiety Lorazepam (Lorazepam 1 Mg Tablet) 1 mg PO TID [facility] Last Admin: 06/10/23 09:53 Dose: 1 mg Magnesium Hydroxide (Milk Of Magnesia 30 Ml Oral.Susp) 30 ml PO DAILY PRN PRN Reason: Constipation Paroxetine HCl (Paroxetine Hcl 40 Mg Tablet) 40 mg PO DAILY [facility] Last Admin: 06/10/23 09:53 Dose: 40 mg Trazodone HCl (Trazodone Hcl 50 Mg Tablet) 50 mg PO BEDTIME MRX1 PRN PRN Reason: Insomnia Allergies Allergies Allergy/AdvReac Type Severity Reaction Status Date / Time tomato [TOMATO] Allergy Severe ANAPHYLAXIS Verified 05/29/23 14:15 Sulfa (Sulfonamide Allergy Intermediate shaky, ROBLES Verified 05/29/23 14:15 Antibiotics) albuterol Allergy Unknown Unknown Verified 05/29/23 14:15 metoclopramide [Reglan] Allergy Unknown Unknown Verified 05/29/23 14:15 Assessment & Plan Assessment & Plan (1) MDD (major depressive disorder), recurrent episode, severe: Status: Acute Code(s): F33.2 - Major depressive disorder, recurrent severe without psychotic features (2) PTSD (post-traumatic stress disorder): Status: Acute Code(s): F43.10 - Post-traumatic stress disorder, unspecified (3) Parkinson's disease without dyskinesia: Status: Acute Code(s): G20.A1 - Parkinson's disease without dyskinesia, without mention of fluctuations Plan Patient is a 72 year old female with hx of MDD, PTSD and Parkinson's disease who self presented to ER d/t her outpatient psychiatrist suggesting pt should be evaluated secondary to confusion, mood, weight loss and ability to take care of herself. Plan: CV 15 minute safety checks continue home medications referral to outpatient therapist referral to [facility] Consult to heat treat technician discharge planning 06/02/2023 Neuro consult question parkinsonian hallucinations versus psychotic symptoms with Parkinson's patient on Paxil Wellbutrin might consider ECT will get swallowing study neuro consult consider Seroquel 06/02: will consult with outpt neuro MD hanna. speech eval supports continuing present diet. continue current mgmt for now. 06/03: per consultation with Dr Hanna, her belief is that psychosis is most likely related to primary progression of Parkinson's Dz, yet she recommends decreasing sinemet 25/100 from 2 tabs BID to 1.5 tabs BID, which is done. otherwise continue current mgmt. discuss possibility of ECT with mino. 06/04: refer for ECT consultation as outpt provider supportive, pt interested. per jacques, no neuro objection. add flexeril PRN spasm, consults for medical risk stratification and ECT, PT consult for LBP/spasm for exercises and positioning. 06/05: some mild improvement in PMR. interested in ECT. seen by mino and medicine for risk stratification. provided written education re ECT. on klonopin 1 TID, will decrease to 0.75 TID today, with further tapering over w/e. planning for ECT saturday. 06/06: DC klonopin and start ativan 1 mg TID in its place. hold HS dose on saturday kenny prior to ECT. PT recs noted. otherwise continue current mgmt. 06/07 keep same treatment. 06/08 keep same treatment. 06/09: ECT #1 completed uneventfully today. stable presentation. continue current mgmt. Reason for continued inpatient stay Substantial Risk for: inability to function and rapid decompensation Time Spent With Patient Time: Total time managing care of this patient today __25__ minutes.
[2023-06-11 07:39] VITALS: BP 128/68; PULSE 79; RESP 16; TEMP 36.7; O2SAT 98
[2023-06-11] MEDS: Carbidopa/Levodopa 25/100 TABLET 1.5 TAB PO ×4 (08:16→22:32)
[2023-06-11] MEDS: PARoxetine HCL 40 MG TABLET PO (08:17)
[2023-06-11] MEDS: LORazepam 1 MG TABLET PO ×2 (08:17→14:53)
[2023-06-11] MEDS: buPROPion HCl XL 300 MG TAB.ER.24H PO (08:17)
[2023-06-11] MEDS: Cyclobenzaprine HCl 10 MG TABLET PO (08:46)
--- NOTE | 2023-06-11 14:49 | P.PNPSI_ITS ---
Subjective Subjective Date of Service: 06/11/23 Reason For Visit: crisis Interim History: calm, cooperative. no issues. ECT tomorrow. per staff, +grps, meds. ECT went fine yesterday. Tylenol for ROBLES. + dep. slept about 8 hours. Mental Status Exam Mental Status Exam Narrative: Pt is alert and oriented; behavior is cooperative and calm; dressed in casual attire; mood is unchanged; eye contact appropriate; Speech is soft and slowed; thought process is organized and goal directed; thought content is on tx; no SI/HI/AVH expressed. Diagnostics Vital Signs (24Hr): Vital Signs - 24 hr 06/10/23 19:55 06/11/23 07:39 Temperature 97.9 F 98.0 F Pulse Rate 82 79 Respiratory Rate 16 16 Blood Pressure 110/60 128/68 Pulse Oximetry 97 98 Oxygen Delivery Method Room Air Room Air BMI result Body Mass Index 22.3 Labs 05/30/23 16:55 06/01/23 07:27 Medications Medications Current Medications Acetaminophen (Acetaminophen 325 Mg Tablet) 975 mg PO Q6H PRN PRN Reason: Headache/Pain Mild Scale (1-3) Al Hydroxide/Mg Hydroxide (Magnesium Hydrox/Alum Hydrox 30 Ml Oral.Susp) 30 ml PO Q6H PRN PRN Reason: Heartburn/Nausea Last Admin: 06/03/23 10:42 Dose: 30 ml Albuterol Sulfate (Albuterol Sulfate 90 Mcg 8 Gm Inhaler) 2 puff INHALE Q6H PRN PRN Reason: shortness of breath or wheezing Bupropion HCl (Bupropion Hcl Xl 300 Mg Tab.Er.24h) 300 mg PO DAILY [facility] Last Admin: 06/11/23 08:17 Dose: 300 mg Carbidopa/Levodopa (Carbidopa/Levodopa 25/100 Tablet) 1.5 tab PO QID [facility] Last Admin: 06/11/23 13:26 Dose: 1.5 tab Cyclobenzaprine HCl (Cyclobenzaprine Hcl 10 Mg Tablet) 10 mg PO TID PRN PRN Reason: muscle spasm Last Admin: 06/11/23 08:46 Dose: 10 mg Famotidine (Famotidine 20 Mg Tablet) 40 mg PO Q48H [facility] Last Admin: 06/10/23 09:52 Dose: 40 mg Hydroxyzine HCl (Hydroxyzine Hcl 25 Mg Tablet) 25 mg PO Q6H PRN PRN Reason: Anxiety Lorazepam (Lorazepam 1 Mg Tablet) 1 mg PO TID [facility] Last Admin: 06/11/23 08:17 Dose: 1 mg Magnesium Hydroxide (Milk Of Magnesia 30 Ml Oral.Susp) 30 ml PO DAILY PRN PRN Reason: Constipation Paroxetine HCl (Paroxetine Hcl 40 Mg Tablet) 40 mg PO DAILY [facility] Last Admin: 06/11/23 08:17 Dose: 40 mg Trazodone HCl (Trazodone Hcl 50 Mg Tablet) 50 mg PO BEDTIME MRX1 PRN PRN Reason: Insomnia Allergies Allergies Allergy/AdvReac Type Severity Reaction Status Date / Time tomato [TOMATO] Allergy Severe ANAPHYLAXIS Verified 05/29/23 14:15 Sulfa (Sulfonamide Allergy Intermediate susan, ROBLES Verified 05/29/23 14:15 Antibiotics) albuterol Allergy Unknown Unknown Verified 05/29/23 14:15 metoclopramide [Reglan] Allergy Unknown Unknown Verified 05/29/23 14:15 Assessment & Plan Assessment & Plan (1) MDD (major depressive disorder), recurrent episode, severe: Status: Acute Code(s): F33.2 - Major depressive disorder, recurrent severe without psychotic features (2) PTSD (post-traumatic stress disorder): Status: Acute Code(s): F43.10 - Post-traumatic stress disorder, unspecified (3) Parkinson's disease without dyskinesia: Status: Acute Code(s): G20.A1 - Parkinson's disease without dyskinesia, without mention of fluctuations Plan Patient is a 72 year old female with hx of MDD, PTSD and Parkinson's disease who self presented to ER d/t her outpatient psychiatrist suggesting pt should be evaluated secondary to confusion, mood, weight loss and ability to take care of herself. Plan: CV 15 minute safety checks continue home medications referral to outpatient therapist referral to [facility] Consult to director multimedia discharge planning 06/02/2023 Neuro consult question parkinsonian hallucinations versus psychotic symptoms with Parkinson's patient on Paxil Wellbutrin might consider ECT will get swallowing study neuro consult consider Seroquel 06/02: will consult with outpt neuro MD hanna. speech eval supports continuing present diet. continue current mgmt for now. 06/03: per consultation with Dr Hanna, her belief is that psychosis is most likely related to primary progression of Parkinson's Dz, yet she recommends decreasing sinemet 25/100 from 2 tabs BID to 1.5 tabs BID, which is done. otherwise continue current mgmt. discuss possibility of ECT with mino. 06/04: refer for ECT consultation as outpt provider supportive, pt interested. per jacques, no neuro objection. add flexeril PRN spasm, consults for medical risk stratification and ECT, PT consult for LBP/spasm for exercises and positioning. 06/05: some mild improvement in PMR. interested in ECT. seen by mino and medicine for risk stratification. provided written education re ECT. on klonopin 1 TID, will decrease to 0.75 TID today, with further tapering over w/. planning for ECT saturday. 06/06: DC klonopin and start ativan 1 mg TID in its place. hold HS dose on saturday kenny prior to ECT. PT recs noted. otherwise continue current mgmt. 06/07 keep same treatment. 06/08 keep same treatment. 06/09: ECT #1 completed uneventfully today. stable presentation. continue current mgmt. 06/10: stable, no change to mgmt. ECT #2 tomorrow. Reason for continued inpatient stay Substantial Risk for: inability to function Time Spent With Patient Time: Total time managing care of this patient today __25__ minutes.
[2023-06-11 20:00] VITALS: BP 112/74; PULSE 87; RESP 16; TEMP 36.6; O2SAT 98
[2023-06-12] VITALS (11 sets, daily range): BP systolic 120–151; BP diastolic 59–76; PULSE 67–86; RESP 12–16; TEMP 36.2–36.9; O2SAT 97–100
[2023-06-12] MEDS: Acetaminophen 325 MG TABLET 975 MG PO ×3 (03:37→21:43)
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
--- NOTE | 2023-06-12 07:52 | MHC.SHP ---
Pre-Procedural Eval Section A - 24 Hr Update-Section A only Date of Service: 06/12/23 The patient is an INPATIENT: Yes Changes since office visit: No Cold of Flu in the past 2 weeks, No New Medical Problems, No Changes in Medication and No Patient answered all questions The patient has been examined within 24 hours of the surgical procedure. The History & Physical has been completed within 30 days and I have reviewed it.: Yes Section B - Complete if H&P > 30 days Chief Complaint: crisis Allergies: Allergies Allergy/AdvReac Type Severity Reaction Status Date / Time tomato [TOMATO] Allergy Severe ANAPHYLAXIS Verified 05/29/23 14:15 Sulfa (Sulfonamide Allergy Intermediate palomoky, ROBLES Verified 05/29/23 14:15 Antibiotics) albuterol Allergy Unknown Unknown Verified 05/29/23 14:15 metoclopramide [Reglan] Allergy Unknown Unknown Verified 05/29/23 14:15 Plan I have reviewed the history and physical and performed a pertinent physical examination on my patient. No changes have occurred unless specified. Time Spent With Patient Time: Total time managing care of this patient today ____ minutes.
--- NOTE | 2023-06-12 07:52 | HO.ECTPROC ---
ECT Procedure Note Diagnosis/Treatment Date of Service: 06/12/23 Diagnosis: Major Depressive Disorder Previous ECT Date: 06/10/23 Current Treatment Number: 2 Treatment: Series Interval Clinical Notes: The patient reported no changes on her depression but her affect looks brighter than last Saturday. She reported headaches after the ECT and some confusion after the procedure. ECT done as usual, no changes on her parameters, no Flumazenil ordered today since her last Ativan 1 mg po was gien more than 18 hours ago. Ketorolac IV given today to prevent headaches. She woke up well Time: Total time managing care of this patient today ____ minutes. ECT Settings Device: THYMATRON DGx Electrode Placement: Right Unilateral Program/Pulse Width: 0.25 Energy Percent: 100 Seizure Duration By EEG (in seconds): 52 By Motor Observation (in seconds): 0 Medications Administration General Anesthetic: Etomidate (12) Muscle Relaxant: Succinylcholine (80) Ancillary Medications Analgesics: Torodol - Pre ECT Miscillaneous Medications: Propofol (20) Airway Management Airway Management: Bag Mask Ventilation Treatment Recommendations No Changes Recommended: No change Pt Tolerated Procedure w/o Issue: Yes
[2023-06-12] MEDS: Famotidine 20 MG TABLET 40 MG PO (09:15)
[2023-06-12] MEDS: PARoxetine HCL 40 MG TABLET PO (09:16)
[2023-06-12] MEDS: Carbidopa/Levodopa 25/100 TABLET 1.5 TAB PO ×4 (09:16→21:28)
[2023-06-12] MEDS: buPROPion HCl XL 300 MG TAB.ER.24H PO (09:17)
[2023-06-12] MEDS: LORazepam 1 MG TABLET PO ×3 (09:17→21:28)
--- NOTE | 2023-06-12 12:34 | P.PNPSI_ITS ---
Subjective Subjective Date of Service: 06/12/23 Reason For Visit: crisis Interim History: calm, cooperative. appears fresher, better eye contact, more awake and alert. no concerns or complaints, tolerated ECT well. per staff, not attending groups. less confused, feeling better. slept about 6 hours. Mental Status Exam Mental Status Exam Narrative: Pt is alert and oriented; behavior is cooperative and calm; dressed in casual attire; mood is improving; eye contact appropriate; Speech is louder, clearer; thought process is organized and goal directed; thought content is on tx; no SI/HI/AVH expressed. Diagnostics Vital Signs (24Hr): Vital Signs - 24 hr 06/11/23 20:00 06/12/23 06:38 06/12/23 06:41 Temperature 97.8 F 98.4 F 98.4 F Pulse Rate 87 67 67 Respiratory Rate 16 16 16 Blood Pressure 112/74 151/73 H 151/73 H Pulse Oximetry 98 99 99 Oxygen Delivery Method Room Air Room Air Oxygen Flow Rate 06/12/23 06:54 06/12/23 08:15 06/12/23 08:20 Temperature 97.4 F 97.2 F Pulse Rate 68 67 86 Respiratory Rate 16 16 12 Blood Pressure 142/72 H 148/74 H 137/69 Pulse Oximetry 100 100 100 Oxygen Delivery Method Room Air Nasal Cannula with ETCO2 Nasal Cannula with ETCO2 Oxygen Flow Rate 2 2 06/12/23 08:25 06/12/23 08:33 06/12/23 08:48 Temperature 97.2 F Pulse Rate 77 85 75 Respiratory Rate 13 16 16 Blood Pressure 143/72 H 146/64 H 138/76 Pulse Oximetry 100 99 97 Oxygen Delivery Method Nasal Cannula with ETCO2 Room Air Room Air Oxygen Flow Rate 2 06/12/23 09:23 06/12/23 09:28 Temperature 98.2 F 98.2 F Pulse Rate 71 71 Respiratory Rate 16 16 Blood Pressure 144/67 H 144/67 H Pulse Oximetry 98 98 Oxygen Delivery Method Room Air Oxygen Flow Rate BMI result Body Mass Index 22.3 Labs 05/30/23 16:55 06/01/23 07:27 Medications Medications Current Medications Acetaminophen (Acetaminophen 325 Mg Tablet) 975 mg PO Q6H PRN PRN Reason: Headache/Pain Mild Scale (1-3) Last Admin: 06/12/23 03:37 Dose: 975 mg Al Hydroxide/Mg Hydroxide (Magnesium Hydrox/Alum Hydrox 30 Ml Oral.Susp) 30 ml PO Q6H PRN PRN Reason: Heartburn/Nausea Last Admin: 06/03/23 10:42 Dose: 30 ml Albuterol Sulfate (Albuterol Sulfate 90 Mcg 8 Gm Inhaler) 2 puff INHALE Q6H PRN PRN Reason: shortness of breath or wheezing Bupropion HCl (Bupropion Hcl Xl 300 Mg Tab.Er.24h) 300 mg PO DAILY COUNTS INCLUDE 234 BEDS AT THE [facility] Last Admin: 06/12/23 09:17 Dose: 300 mg Carbidopa/Levodopa (Carbidopa/Levodopa 25/100 Tablet) 1.5 tab PO QID COUNTS INCLUDE 234 BEDS AT THE [facility] Last Admin: 06/12/23 09:16 Dose: 1.5 tab Cyclobenzaprine HCl (Cyclobenzaprine Hcl 10 Mg Tablet) 10 mg PO TID PRN PRN Reason: muscle spasm Last Admin: 06/11/23 08:46 Dose: 10 mg Famotidine (Famotidine 20 Mg Tablet) 40 mg PO Q48H COUNTS INCLUDE 234 BEDS AT THE [facility] Last Admin: 06/12/23 09:15 Dose: 40 mg Hydroxyzine HCl (Hydroxyzine Hcl 25 Mg Tablet) 25 mg PO Q6H PRN PRN Reason: Anxiety Lorazepam (Lorazepam 1 Mg Tablet) 1 mg PO TID COUNTS INCLUDE 234 BEDS AT THE [facility] Last Admin: 06/12/23 09:17 Dose: 1 mg Magnesium Hydroxide (Milk Of Magnesia 30 Ml Oral.Susp) 30 ml PO DAILY PRN PRN Reason: Constipation Paroxetine HCl (Paroxetine Hcl 40 Mg Tablet) 40 mg PO DAILY COUNTS INCLUDE 234 BEDS AT THE [facility] Last Admin: 06/12/23 09:16 Dose: 40 mg Trazodone HCl (Trazodone Hcl 50 Mg Tablet) 50 mg PO BEDTIME MRX1 PRN PRN Reason: Insomnia Allergies Allergies Allergy/AdvReac Type Severity Reaction Status Date / Time tomato [TOMATO] Allergy Severe ANAPHYLAXIS Verified 05/29/23 14:15 Sulfa (Sulfonamide Allergy Intermediate TRAVIS davis Verified 05/29/23 14:15 Antibiotics) albuterol Allergy Unknown Unknown Verified 05/29/23 14:15 metoclopramide [Reglan] Allergy Unknown Unknown Verified 05/29/23 14:15 Assessment & Plan Assessment & Plan (1) MDD (major depressive disorder), recurrent episode, severe: Status: Acute Code(s): F33.2 - Major depressive disorder, recurrent severe without psychotic features (2) PTSD (post-traumatic stress disorder): Status: Acute Code(s): F43.10 - Post-traumatic stress disorder, unspecified (3) Parkinson's disease without dyskinesia: Status: Acute Code(s): G20.A1 - Parkinson's disease without dyskinesia, without mention of fluctuations Plan Patient is a 72 year old female with hx of MDD, PTSD and Parkinson's disease who self presented to ER d/t her outpatient psychiatrist suggesting pt should be evaluated secondary to confusion, mood, weight loss and ability to take care of herself. 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 speech eval supports continuing present diet. continue current mgmt for now. 06/03: per consultation with Dr Hanna, her belief is that psychosis is most likely related to primary progression of Parkinson's Dz, yet she recommends decreasing sinemet 25/100 from 2 tabs BID to 1.5 tabs BID, which is done. otherwise continue current mgmt. discuss possibility of ECT with mino. 06/04: refer for ECT consultation as outpt provider supportive, pt interested. per jacques, no neuro objection. add flexeril PRN spasm, consults for medical risk stratification and ECT, PT consult for LBP/spasm for exercises and positioning. 06/05: some mild improvement in PMR. interested in ECT. seen by mino and medicine for risk stratification. provided written education re ECT. on klonopin 1 TID, will decrease to 0.75 TID today, with further tapering over w/e. planning for ECT saturday. 06/06: DC klonopin and start ativan 1 mg TID in its place. hold HS dose on saturday kenny prior to ECT. PT recs noted. otherwise continue current mgmt. 06/07 keep same treatment. 06/08 keep same treatment. 06/09: ECT #1 completed uneventfully today. stable presentation. continue current mgmt. 06/10: stable, no change to mgmt. ECT #2 tomorrow. 06/11: stable, no change in mgmt. ECT #2 completed without incident. T/C tapering off of benzos entirely, modifying anti-depressant regimen. Reason for continued inpatient stay Substantial Risk for: harm to self, inability to function and rapid decompensation Time Spent With Patient Time: Total time managing care of this patient today __25__ minutes.
[2023-06-13 06:00] VITALS: BP 127/60; PULSE 69; RESP 16; TEMP 36.8; O2SAT 97
[2023-06-13 07:00] VITALS: BMI 22.5
[2023-06-13] MEDS: buPROPion HCl XL 300 MG TAB.ER.24H PO (08:52)
[2023-06-13] MEDS: PARoxetine HCL 40 MG TABLET PO (08:53)
[2023-06-13] MEDS: LORazepam 1 MG TABLET PO (08:54)
[2023-06-13] MEDS: Carbidopa/Levodopa 25/100 TABLET 1.5 TAB PO ×4 (09:01→21:49)
--- NOTE | 2023-06-13 15:18 | P.PNPSI_ITS ---
Subjective Subjective Date of Service: 06/13/23 Reason For Visit: crisis Interim History: calm, cooperative, in bed. more alert when roused. no complaints or requests. amenable to ativan taper. for ECT tomorrow. c/o sore throat, cepacol lozenge. Mental Status Exam Mental Status Exam Narrative: Pt is alert and oriented; behavior is cooperative and calm; dressed in casual attire; mood is improving; eye contact appropriate; Speech is louder, clearer; thought process is organized and goal directed; thought content is on tx; no SI/HI/AVH expressed. Diagnostics Vital Signs (24Hr): Vital Signs - 24 hr 06/12/23 20:00 06/13/23 06:00 Temperature 97.7 F 98.3 F Pulse Rate 82 69 Respiratory Rate 16 16 Blood Pressure 120/59 L 127/60 Pulse Oximetry 99 97 Oxygen Delivery Method Room Air Room Air BMI result Body Mass Index 22.3 Labs 05/30/23 16:55 06/01/23 07:27 Medications Medications Current Medications Acetaminophen (Acetaminophen 325 Mg Tablet) 975 mg PO Q6H PRN PRN Reason: Headache/Pain Mild Scale (1-3) Last Admin: 06/12/23 21:43 Dose: 650 mg Al Hydroxide/Mg Hydroxide (Magnesium Hydrox/Alum Hydrox 30 Ml Oral.Susp) 30 ml PO Q6H PRN PRN Reason: Heartburn/Nausea Last Admin: 06/03/23 10:42 Dose: 30 ml Albuterol Sulfate (Albuterol Sulfate 90 Mcg 8 Gm Inhaler) 2 puff INHALE Q6H PRN PRN Reason: shortness of breath or wheezing Benzocaine (Throat Lozenge, Medicated Lozenge) 1 lozenge MUCOUS MEM Q2H PRN PRN Reason: Sore Throat Bupropion HCl (Bupropion Hcl Xl 300 Mg Tab.Er.24h) 300 mg PO DAILY ENZO Last Admin: 06/13/23 08:52 Dose: 300 mg Carbidopa/Levodopa (Carbidopa/Levodopa 25/100 Tablet) 1.5 tab PO QID ENZO Last Admin: 06/13/23 13:58 Dose: 1.5 tab Cyclobenzaprine HCl (Cyclobenzaprine Hcl 10 Mg Tablet) 10 mg PO TID PRN PRN Reason: muscle spasm Last Admin: 06/11/23 08:46 Dose: 10 mg Famotidine (Famotidine 20 Mg Tablet) 40 mg PO Q48H EN[facility] Last Admin: 06/12/23 09:15 Dose: 40 mg Hydroxyzine HCl (Hydroxyzine Hcl 25 Mg Tablet) 25 mg PO Q6H PRN PRN Reason: Anxiety Lorazepam (Lorazepam 1 Mg Tablet) 1 mg PO BEDTIME ENZO Lorazepam (Lorazepam 0.5 Mg Tablet) 0.5 mg PO BID@0900,1500 [facility] Magnesium Hydroxide (Milk Of Magnesia 30 Ml Oral.Susp) 30 ml PO DAILY PRN PRN Reason: Constipation Paroxetine HCl (Paroxetine Hcl 40 Mg Tablet) 40 mg PO DAILY ENZO Last Admin: 06/13/23 08:53 Dose: 40 mg Trazodone HCl (Trazodone Hcl 50 Mg Tablet) 50 mg PO BEDTIME MRX1 PRN PRN Reason: Insomnia Allergies Allergies Allergy/AdvReac Type Severity Reaction Status Date / Time tomato [TOMATO] Allergy Severe ANAPHYLAXIS Verified 05/29/23 14:15 Sulfa (Sulfonamide Allergy Intermediate susan, ROBLES Verified 05/29/23 14:15 Antibiotics) albuterol Allergy Unknown Unknown Verified 05/29/23 14:15 metoclopramide [Reglan] Allergy Unknown Unknown Verified 05/29/23 14:15 Assessment & Plan Assessment & Plan (1) MDD (major depressive disorder), recurrent episode, severe: Status: Acute Code(s): F33.2 - Major depressive disorder, recurrent severe without psychotic features (2) PTSD (post-traumatic stress disorder): Status: Acute Code(s): F43.10 - Post-traumatic stress disorder, unspecified (3) Parkinson's disease without dyskinesia: Status: Acute Code(s): G20.A1 - Parkinson's disease without dyskinesia, without mention of fluctuations Plan Patient is a 72 year old female with hx of MDD, PTSD and Parkinson's disease who self presented to ER d/t her outpatient psychiatrist suggesting pt should be evaluated secondary to confusion, mood, weight loss and ability to take care of herself. 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 speech eval supports continuing present diet. continue current mgmt for now. 06/03: per consultation with Dr Hanna, her belief is that psychosis is most likely related to primary progression of Parkinson's Dz, yet she recommends decreasing sinemet 25/100 from 2 tabs BID to 1.5 tabs BID, which is done. otherwise continue current mgmt. discuss possibility of ECT with mino. 06/04: refer for ECT consultation as outpt provider supportive, pt interested. per jacques, no neuro objection. add flexeril PRN spasm, consults for medical risk stratification and ECT, PT consult for LBP/spasm for exercises and positioning. 06/05: some mild improvement in PMR. interested in ECT. seen by mino and medicine for risk stratification. provided written education re ECT. on klonopin 1 TID, will decrease to 0.75 TID today, with further tapering over w/. planning for ECT saturday. 06/06: DC klonopin and start ativan 1 mg TID in its place. hold HS dose on saturday kenny prior to ECT. PT recs noted. otherwise continue current mgmt. 06/07 keep same treatment. 06/08 keep same treatment. 06/09: ECT #1 completed uneventfully today. stable presentation. continue current mgmt. 06/10: stable, no change to mgmt. ECT #2 tomorrow. 06/11: stable, no change in mgmt. ECT #2 completed without incident. T/C tapering off of benzos entirely, modifying anti-depressant regimen. 06/12: decrease ativan to 0.5/0.5/1 as of tomorrow. add cepacol lozenge for sore throat. ECT #3 tomorrow. Reason for continued inpatient stay Substantial Risk for: inability to function and rapid decompensation Time Spent With Patient Time: Total time managing care of this patient today __25__ minutes.
[2023-06-13 20:00] VITALS: BP 126/60; PULSE 85; RESP 15; TEMP 36.4; O2SAT 97
[2023-06-13] MEDS: Throat Lozenge, Medicated LOZENGE 1 LOZENGE MUCOUS MEM (21:51)
[2023-06-14] VITALS (10 sets, daily range): BP systolic 122–186; BP diastolic 58–87; PULSE 68–89; RESP 14–19; TEMP 36.3–37.5; O2SAT 96–100
[2023-06-14] MEDS: hydrOXYzine HCL 25 MG TABLET PO (00:45)
--- NOTE | 2023-06-14 04:51 | PC.NURSE ---
Lien is noted to be visible but quiet. she is pleasant and cooperative upon approach. she reports feeling disconnected and out of sorts. she also endorsed racing repetitive thoughts that make it difficult to sleep. she is tearful at times and endorses feeling overwhelmed. she states that she feels the ECT is helping. patient encouraged to share her thoughts and feelings with staff, continue with Plan of Care
[2023-06-14] MEDS: Famotidine 20 MG TABLET 40 MG PO (09:09)
[2023-06-14] MEDS: buPROPion HCl XL 300 MG TAB.ER.24H PO (09:09)
[2023-06-14] MEDS: Carbidopa/Levodopa 25/100 TABLET 1.5 TAB PO ×3 (09:10→20:56)
[2023-06-14] MEDS: PARoxetine HCL 40 MG TABLET PO (09:10)
--- NOTE | 2023-06-14 12:53 | HO.PSYCHPN ---
Subjective Subjective Date of Service: 06/14/23 Reason For Visit: crisis Interim History: awaiting ECT in afternoon. slept some overnight. c/o ruminative thoughts. reviewed ativan taper plan. per staff, moderate anx/dep. taking meds. in bed for the most part. improving anxiety/depression. heavy PRN use. quiet, tearful eves and overnight. Mental Status Exam Mental Status Exam Narrative: Pt is alert and oriented; behavior is cooperative and calm; dressed in casual attire; mood is fair; eye contact appropriate; Speech is louder, clearer; thought process is organized and goal directed; thought content is on tx; no SI/HI/AVH expressed. Diagnostics Vital Signs (24Hr): Vital Signs - 24 hr 06/13/23 20:00 06/14/23 06:00 06/14/23 12:48 Temperature 97.6 F 98.4 F 98.3 F Pulse Rate 85 77 71 Respiratory Rate 15 16 18 Blood Pressure 126/60 124/61 148/73 H Pulse Oximetry 97 96 98 Oxygen Delivery Method Room Air Room Air Room Air BMI result Body Mass Index 22.5 Labs 05/30/23 16:55 06/01/23 07:27 Medications Medications Current Medications Acetaminophen (Acetaminophen 325 Mg Tablet) 975 mg PO Q6H PRN PRN Reason: Headache/Pain Mild Scale (1-3) Last Admin: 06/12/23 21:43 Dose: 650 mg Al Hydroxide/Mg Hydroxide (Magnesium Hydrox/Alum Hydrox 30 Ml Oral.Susp) 30 ml PO Q6H PRN PRN Reason: Heartburn/Nausea Last Admin: 06/03/23 10:42 Dose: 30 ml Albuterol Sulfate (Albuterol Sulfate 90 Mcg 8 Gm Inhaler) 2 puff INHALE Q6H PRN PRN Reason: shortness of breath or wheezing Benzocaine (Throat Lozenge, Medicated Lozenge) 1 lozenge MUCOUS MEM Q2H PRN PRN Reason: Sore Throat Last Admin: 06/13/23 21:51 Dose: 1 lozenge Bupropion HCl (Bupropion Hcl Xl 300 Mg Tab.Er.24h) 300 mg PO DAILY ENZO Last Admin: 06/14/23 09:09 Dose: 300 mg Carbidopa/Levodopa (Carbidopa/Levodopa 25/100 Tablet) 1.5 tab PO QID ENZO Last Admin: 06/14/23 09:10 Dose: 1.5 tab Cyclobenzaprine HCl (Cyclobenzaprine Hcl 10 Mg Tablet) 10 mg PO TID PRN PRN Reason: muscle spasm Last Admin: 06/11/23 08:46 Dose: 10 mg Famotidine (Famotidine 20 Mg Tablet) 40 mg PO Q48H [facility] Last Admin: 06/14/23 09:09 Dose: 40 mg Hydroxyzine HCl (Hydroxyzine Hcl 25 Mg Tablet) 25 mg PO Q6H PRN PRN Reason: Anxiety Last Admin: 06/14/23 00:45 Dose: 25 mg Lorazepam (Lorazepam 1 Mg Tablet) 1 mg PO BEDTIME [facility] Last Admin: 06/13/23 22:38 Dose: Not Given Lorazepam (Lorazepam 0.5 Mg Tablet) 0.5 mg PO BID@0900,1500 [facility] Last Admin: 06/14/23 08:08 Dose: Not Given Magnesium Hydroxide (Milk Of Magnesia 30 Ml Oral.Susp) 30 ml PO DAILY PRN PRN Reason: Constipation Paroxetine HCl (Paroxetine Hcl 40 Mg Tablet) 40 mg PO DAILY [facility] Last Admin: 06/14/23 09:10 Dose: 40 mg Trazodone HCl (Trazodone Hcl 50 Mg Tablet) 50 mg PO BEDTIME MRX1 PRN PRN Reason: Insomnia Allergies Allergies Allergy/AdvReac Type Severity Reaction Status Date / Time tomato [TOMATO] Allergy Severe ANAPHYLAXIS Verified 05/29/23 14:15 Sulfa (Sulfonamide Allergy Intermediate shaky, ROBLES Verified 05/29/23 14:15 Antibiotics) albuterol Allergy Unknown Unknown Verified 05/29/23 14:15 metoclopramide [Reglan] Allergy Unknown Unknown Verified 05/29/23 14:15 Assessment & Plan Assessment & Plan (1) MDD (major depressive disorder), recurrent episode, severe: Status: Acute Code(s): F33.2 - Major depressive disorder, recurrent severe without psychotic features (2) PTSD (post-traumatic stress disorder): Status: Acute Code(s): F43.10 - Post-traumatic stress disorder, unspecified (3) Parkinson's disease without dyskinesia: Status: Acute Code(s): G20.A1 - Parkinson's disease without dyskinesia, without mention of fluctuations Plan Patient is a 72 year old female with hx of MDD, PTSD and Parkinson's disease who self presented to ER d/t her outpatient psychiatrist suggesting pt should be evaluated secondary to confusion, mood, weight loss and ability to take care of herself. 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 speech eval supports continuing present diet. continue current mgmt for now. 06/03: per consultation with Dr Hanna, her belief is that psychosis is most likely related to primary progression of Parkinson's Dz, yet she recommends decreasing sinemet 25/100 from 2 tabs BID to 1.5 tabs BID, which is done. otherwise continue current mgmt. discuss possibility of ECT with mino. 06/04: refer for ECT consultation as outpt provider supportive, pt interested. per jacques, no neuro objection. add flexeril PRN spasm, consults for medical risk stratification and ECT, PT consult for LBP/spasm for exercises and positioning. 06/05: some mild improvement in PMR. interested in ECT. seen by mino and medicine for risk stratification. provided written education re ECT. on klonopin 1 TID, will decrease to 0.75 TID today, with further tapering over w/. planning for ECT saturday. 06/06: DC klonopin and start ativan 1 mg TID in its place. hold HS dose on saturday kenny prior to ECT. PT recs noted. otherwise continue current mgmt. 06/07 keep same treatment. 06/08 keep same treatment. 06/09: ECT #1 completed uneventfully today. stable presentation. continue current mgmt. 06/10: stable, no change to mgmt. ECT #2 tomorrow. 06/11: stable, no change in mgmt. ECT #2 completed without incident. T/C tapering off of benzos entirely, modifying anti-depressant regimen. 06/12: decrease ativan to 0.5/0.5/1 as of tomorrow. add cepacol lozenge for sore throat. ECT #3 tomorrow. 06/13: awaiting ECT for this afternoon. stable presentation. continue current mgmt. Reason for continued inpatient stay Substantial Risk for: inability to function and rapid decompensation Time Spent With Patient Time: Total time managing care of this patient today __25__ minutes.
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
--- NOTE | 2023-06-14 13:04 | MHC.SHP ---
Pre-Procedural Eval Section A - 24 Hr Update-Section A only Date of Service: 06/14/23 The patient is an INPATIENT: Yes Changes since office visit: Yes Changes in Medication and Yes Patient answered all questions; No Cold of Flu in the past 2 weeks and No New Medical Problems The patient has been examined within 24 hours of the surgical procedure. The History & Physical has been completed within 30 days and I have reviewed it.: Yes Section B - Complete if H&P > 30 days Chief Complaint: crisis Allergies: Allergies Allergy/AdvReac Type Severity Reaction Status Date / Time tomato [TOMATO] Allergy Severe ANAPHYLAXIS Verified 05/29/23 14:15 Sulfa (Sulfonamide Allergy Intermediate susan, ROBLES Verified 05/29/23 14:15 Antibiotics) albuterol Allergy Unknown Unknown Verified 05/29/23 14:15 metoclopramide [Reglan] Allergy Unknown Unknown Verified 05/29/23 14:15 Plan I have reviewed the history and physical and performed a pertinent physical examination on my patient. No changes have occurred unless specified. Time Spent With Patient Time: Total time managing care of this patient today ____ minutes.
--- NOTE | 2023-06-14 13:04 | HO.ECTPROC ---
ECT Procedure Note Diagnosis/Treatment Date of Service: 06/14/23 Diagnosis: Major Depressive Disorder Previous ECT Date: 06/10/23 Current Treatment Number: 3 Treatment: Series Interval Clinical Notes: The patient reports possibly some improvement in mood less preoccupation with something behind her on her back or ghosts The patient states she has been doing somewhat better no SI less depressed Time: Total time managing care of this patient today ____ minutes. ECT Settings Device: THYMATRON DGx Electrode Placement: Right Unilateral Program/Pulse Width: 0.25 Energy Percent: 100 Seizure Duration By EEG (in seconds): 55 Medications Administration General Anesthetic: Etomidate (12) Muscle Relaxant: Succinylcholine (80) Ancillary Medications Analgesics: Torodol - Pre ECT Miscillaneous Medications: Propofol (20) Airway Management Airway Management: Bag Mask Ventilation Treatment Recommendations No Changes Recommended: No change Notes: cont plan of care consider transition to outpt as possible Pt Tolerated Procedure w/o Issue: Yes
[2023-06-14] MEDS: LORazepam 0.5 MG TABLET PO (15:05)
[2023-06-14] MEDS: Acetaminophen 325 MG TABLET 975 MG PO (15:05)
[2023-06-14] MEDS: LORazepam 1 MG TABLET PO (20:57)
[2023-06-14] MEDS: Throat Lozenge, Medicated LOZENGE 1 LOZENGE MUCOUS MEM (21:14)
[2023-06-15] MEDS: Acetaminophen 325 MG TABLET 975 MG PO (04:03)
[2023-06-15 07:55] VITALS: BP 106/49; PULSE 66; RESP 14; TEMP 37.2; O2SAT 97
[2023-06-15] MEDS: LORazepam 0.5 MG TABLET PO ×2 (09:20→15:35)
[2023-06-15] MEDS: buPROPion HCl XL 300 MG TAB.ER.24H PO (09:20)
[2023-06-15] MEDS: PARoxetine HCL 40 MG TABLET PO (09:20)
[2023-06-15] MEDS: Carbidopa/Levodopa 25/100 TABLET 1.5 TAB PO ×4 (09:29→21:18)
--- NOTE | 2023-06-15 11:31 | HO.PSYCHPN ---
Subjective Subjective Date of Service: 06/15/23 Reason For Visit: crisis Subjective Notes: Conditional Voluntary Interim History: Met with patient. Discussed with Nursing. Seen in room eating lunch. Reports that she is noticing a benefit from the ECT, with having more energy and feeling less anxious and depressed. Is tearful when discussing return to community environment and stressors. Also acknowledges that if her mental state is better leaving the hospital, she will be in a better position to manage stressors. Sleep okay. Appetite okay. Medication Compliance: Yes Side effects from medications: No Attending Groups: Intermittent Review of Systems Acute medical concerns: No Review of Systems Review of Systems Nothing acute Mental Status Exam Mental Status Exam Narrative: Pt is alert and oriented; behavior is cooperative and calm; dressed in casual attire; mood is fair; some tearfulness when discussing home situation stressors, eye contact appropriate; Speech is louder, clearer; thought process is organized and goal directed; thought content is on tx; no SI/HI/AVH expressed. Diagnostics Vital Signs (24Hr): Vital Signs - 24 hr 06/14/23 12:48 06/14/23 13:28 06/14/23 13:30 Temperature 98.3 F 99.5 F Pulse Rate 71 88 70 Respiratory Rate 18 14 16 Blood Pressure 148/73 H 186/87 H 169/81 H Pulse Oximetry 98 100 96 Oxygen Delivery Method Room Air Nasal Cannula Room Air Oxygen Flow Rate 3 06/14/23 13:35 06/14/23 13:40 06/14/23 13:55 Temperature Pulse Rate 89 85 79 Respiratory Rate 16 16 16 Blood Pressure 170/81 H 153/81 H 154/74 H Pulse Oximetry 96 96 97 Oxygen Delivery Method Room Air Room Air Room Air Oxygen Flow Rate 06/14/23 14:10 06/14/23 14:49 06/14/23 20:59 Temperature 98.4 F 97.9 F 97.4 F Pulse Rate 77 68 81 Respiratory Rate 16 19 16 Blood Pressure 143/69 H 126/62 122/58 L Pulse Oximetry 96 99 97 Oxygen Delivery Method Room Air Room Air Oxygen Flow Rate 06/15/23 07:55 Temperature 98.9 F Pulse Rate 66 Respiratory Rate 14 Blood Pressure 106/49 L Pulse Oximetry 97 Oxygen Delivery Method Room Air Oxygen Flow Rate BMI result Body Mass Index 22.5 Labs 05/30/23 16:55 06/01/23 07:27 Medications Medications Current Medications Acetaminophen (Acetaminophen 325 Mg Tablet) 975 mg PO Q6H PRN PRN Reason: Headache/Pain Mild Scale (1-3) Last Admin: 06/15/23 04:03 Dose: 975 mg Al Hydroxide/Mg Hydroxide (Magnesium Hydrox/Alum Hydrox 30 Ml Oral.Susp) 30 ml PO Q6H PRN PRN Reason: Heartburn/Nausea Last Admin: 06/03/23 10:42 Dose: 30 ml Albuterol Sulfate (Albuterol Sulfate 90 Mcg 8 Gm Inhaler) 2 puff INHALE Q6H PRN PRN Reason: shortness of breath or wheezing Benzocaine (Throat Lozenge, Medicated Lozenge) 1 lozenge MUCOUS MEM Q2H PRN PRN Reason: Sore Throat Last Admin: 06/14/23 21:14 Dose: 1 lozenge Bupropion HCl (Bupropion Hcl Xl 300 Mg Tab.Er.24h) 300 mg PO DAILY [facility] Last Admin: 06/15/23 09:20 Dose: 300 mg Carbidopa/Levodopa (Carbidopa/Levodopa 25/100 Tablet) 1.5 tab PO QID [facility] Last Admin: 06/15/23 09:29 Dose: 1.5 tab Cyclobenzaprine HCl (Cyclobenzaprine Hcl 10 Mg Tablet) 10 mg PO TID PRN PRN Reason: muscle spasm Last Admin: 06/11/23 08:46 Dose: 10 mg Famotidine (Famotidine 20 Mg Tablet) 40 mg PO Q48H [facility] Last Admin: 06/14/23 09:09 Dose: 40 mg Hydroxyzine HCl (Hydroxyzine Hcl 25 Mg Tablet) 25 mg PO Q6H PRN PRN Reason: Anxiety Last Admin: 06/14/23 00:45 Dose: 25 mg Lactated Ringer's (Lr) 1,000 mls @ 50 mls/hr IVCONT .Q20H [facility] Last Admin: 06/14/23 15:07 Dose: Not Given Lorazepam (Lorazepam 1 Mg Tablet) 1 mg PO BEDTIME [facility] Last Admin: 06/14/23 20:57 Dose: 1 mg Lorazepam (Lorazepam 0.5 Mg Tablet) 0.5 mg PO BID@0900,1500 [facility] Last Admin: 06/15/23 09:20 Dose: 0.5 mg Magnesium Hydroxide (Milk Of Magnesia 30 Ml Oral.Susp) 30 ml PO DAILY PRN PRN Reason: Constipation Paroxetine HCl (Paroxetine Hcl 40 Mg Tablet) 40 mg PO DAILY [facility] Last Admin: 06/15/23 09:20 Dose: 40 mg Trazodone HCl (Trazodone Hcl 50 Mg Tablet) 50 mg PO BEDTIME MRX1 PRN PRN Reason: Insomnia Allergies Allergies Allergy/AdvReac Type Severity Reaction Status Date / Time tomato [TOMATO] Allergy Severe ANAPHYLAXIS Verified 05/29/23 14:15 Sulfa (Sulfonamide Allergy Intermediate shaky, ROBLES Verified 05/29/23 14:15 Antibiotics) albuterol Allergy Unknown Unknown Verified 05/29/23 14:15 metoclopramide [Reglan] Allergy Unknown Unknown Verified 05/29/23 14:15 Assessment & Plan Assessment & Plan (1) MDD (major depressive disorder), recurrent episode, severe: Status: Acute Code(s): F33.2 - Major depressive disorder, recurrent severe without psychotic features (2) PTSD (post-traumatic stress disorder): Status: Acute Code(s): F43.10 - Post-traumatic stress disorder, unspecified (3) Parkinson's disease without dyskinesia: Status: Acute Code(s): G20.A1 - Parkinson's disease without dyskinesia, without mention of fluctuations Plan Patient is a 72 year old female with hx of MDD, PTSD and Parkinson's disease who self presented to ER d/t her outpatient psychiatrist suggesting pt should be evaluated secondary to confusion, mood, weight loss and ability to take care of herself. Plan: CV 15 minute safety checks continue home medications referral to outpatient therapist referral to [facility] Consult to endo tech discharge planning 06/02/2023 Neuro consult question parkinsonian hallucinations versus psychotic symptoms with Parkinson's patient on Paxil Wellbutrin might consider ECT will get swallowing study neuro consult consider Seroquel 06/02: will consult with outpt neuro MD hanna. speech eval supports continuing present diet. continue current mgmt for now. 06/03: per consultation with Dr Hanna, her belief is that psychosis is most likely related to primary progression of Parkinson's Dz, yet she recommends decreasing sinemet 25/100 from 2 tabs BID to 1.5 tabs BID, which is done. otherwise continue current mgmt. discuss possibility of ECT with mino. 06/04: refer for ECT consultation as outpt provider supportive, pt interested. per jacques, no neuro objection. add flexeril PRN spasm, consults for medical risk stratification and ECT, PT consult for LBP/spasm for exercises and positioning. 06/05: some mild improvement in PMR. interested in ECT. seen by mino and medicine for risk stratification. provided written education re ECT. on klonopin 1 TID, will decrease to 0.75 TID today, with further tapering over w/e. planning for ECT saturday. 06/06: DC klonopin and start ativan 1 mg TID in its place. hold HS dose on saturday kenny prior to ECT. PT recs noted. otherwise continue current mgmt. 06/07 keep same treatment. 06/08 keep same treatment. 06/09: ECT #1 completed uneventfully today. stable presentation. continue current mgmt. 06/10: stable, no change to mgmt. ECT #2 tomorrow. 06/11: stable, no change in mgmt. ECT #2 completed without incident. T/C tapering off of benzos entirely, modifying anti-depressant regimen. 06/12: decrease ativan to 0.5/0.5/1 as of tomorrow. add cepacol lozenge for sore throat. ECT #3 tomorrow. 06/13: awaiting ECT for this afternoon. stable presentation. continue current mgmt. 06/14: no changes Reason for continued inpatient stay Substantial Risk for: rapid decompensation Time Spent With Patient Time: Total time managing care of this patient today ____ minutes.
[2023-06-15 21:00] VITALS: BP 100/58; PULSE 86; RESP 16; TEMP 36.9; O2SAT 97
[2023-06-15] MEDS: LORazepam 1 MG TABLET PO (21:18)
[2023-06-15] MEDS: Throat Lozenge, Medicated LOZENGE 1 LOZENGE MUCOUS MEM (21:19)
[2023-06-16 07:45] VITALS: BP 140/63; PULSE 66; RESP 16; TEMP 36.9; O2SAT 96
[2023-06-16] MEDS: Carbidopa/Levodopa 25/100 TABLET 1.5 TAB PO ×4 (09:09→21:06)
[2023-06-16] MEDS: Famotidine 20 MG TABLET 40 MG PO (09:10)
[2023-06-16] MEDS: PARoxetine HCL 40 MG TABLET PO (09:10)
[2023-06-16] MEDS: LORazepam 0.5 MG TABLET PO ×2 (09:10→14:56)
[2023-06-16] MEDS: buPROPion HCl XL 300 MG TAB.ER.24H PO (09:10)
--- NOTE | 2023-06-16 12:07 | P.PNPSI_ITS ---
Subjective Subjective Date of Service: 06/16/23 Reason For Visit: crisis Subjective Notes: Conditional Voluntary Interim History: Met with patient. Discussed with Nursing. Seen in room. Ongoing benefit from ECT- more energy and feeling less anxious and depressed. Sleep okay. Appetite okay. Medication Compliance: Yes Side effects from medications: No Attending Groups: Intermittent Review of Systems Acute medical concerns: No Review of Systems Review of Systems Nothing acute Mental Status Exam Mental Status Exam Narrative: Pt is alert and oriented; behavior is cooperative and calm; dressed in casual attire; mood is fair; eye contact appropriate; Speech is louder, clearer; thought process is organized and goal directed; thought content is on tx; no SI/HI/AVH expressed. Diagnostics Vital Signs (24Hr): Vital Signs - 24 hr 06/15/23 21:00 06/16/23 07:45 Temperature 98.5 F 98.4 F Pulse Rate 86 66 Respiratory Rate 16 16 Blood Pressure 100/58 L 140/63 H Pulse Oximetry 97 96 Oxygen Delivery Method Room Air Room Air BMI result Body Mass Index 22.5 Labs 05/30/23 16:55 06/01/23 07:27 Medications Medications Current Medications Acetaminophen (Acetaminophen 325 Mg Tablet) 975 mg PO Q6H PRN PRN Reason: Headache/Pain Mild Scale (1-3) Last Admin: 06/15/23 04:03 Dose: 975 mg Al Hydroxide/Mg Hydroxide (Magnesium Hydrox/Alum Hydrox 30 Ml Oral.Susp) 30 ml PO Q6H PRN PRN Reason: Heartburn/Nausea Last Admin: 06/03/23 10:42 Dose: 30 ml Albuterol Sulfate (Albuterol Sulfate 90 Mcg 8 Gm Inhaler) 2 puff INHALE Q6H PRN PRN Reason: shortness of breath or wheezing Benzocaine (Throat Lozenge, Medicated Lozenge) 1 lozenge MUCOUS MEM Q2H PRN PRN Reason: Sore Throat Last Admin: 06/15/23 21:19 Dose: 1 lozenge Bupropion HCl (Bupropion Hcl Xl 300 Mg Tab.Er.24h) 300 mg PO DAILY [facility] Last Admin: 06/16/23 09:10 Dose: 300 mg Carbidopa/Levodopa (Carbidopa/Levodopa 25/100 Tablet) 1.5 tab PO QID [facility] Last Admin: 06/16/23 09:09 Dose: 1.5 tab Cyclobenzaprine HCl (Cyclobenzaprine Hcl 10 Mg Tablet) 10 mg PO TID PRN PRN Reason: muscle spasm Last Admin: 06/11/23 08:46 Dose: 10 mg Famotidine (Famotidine 20 Mg Tablet) 40 mg PO Q48H [facility] Last Admin: 06/16/23 09:10 Dose: 40 mg Hydroxyzine HCl (Hydroxyzine Hcl 25 Mg Tablet) 25 mg PO Q6H PRN PRN Reason: Anxiety Last Admin: 06/14/23 00:45 Dose: 25 mg Lorazepam (Lorazepam 1 Mg Tablet) 1 mg PO BEDTIME [facility] Last Admin: 06/15/23 21:18 Dose: 1 mg Lorazepam (Lorazepam 0.5 Mg Tablet) 0.5 mg PO BID@0900,1500 [facility] Last Admin: 06/16/23 09:10 Dose: 0.5 mg Magnesium Hydroxide (Milk Of Magnesia 30 Ml Oral.Susp) 30 ml PO DAILY PRN PRN Reason: Constipation Paroxetine HCl (Paroxetine Hcl 40 Mg Tablet) 40 mg PO DAILY [facility] Last Admin: 06/16/23 09:10 Dose: 40 mg Trazodone HCl (Trazodone Hcl 50 Mg Tablet) 50 mg PO BEDTIME MRX1 PRN PRN Reason: Insomnia Allergies Allergies Allergy/AdvReac Type Severity Reaction Status Date / Time tomato [TOMATO] Allergy Severe ANAPHYLAXIS Verified 05/29/23 14:15 Sulfa (Sulfonamide Allergy Intermediate palomoky, ROBLES Verified 05/29/23 14:15 Antibiotics) albuterol Allergy Unknown Unknown Verified 05/29/23 14:15 metoclopramide [Reglan] Allergy Unknown Unknown Verified 05/29/23 14:15 Assessment & Plan Assessment & Plan (1) MDD (major depressive disorder), recurrent episode, severe: Status: Acute Code(s): F33.2 - Major depressive disorder, recurrent severe without psychotic features (2) PTSD (post-traumatic stress disorder): Status: Acute Code(s): F43.10 - Post-traumatic stress disorder, unspecified (3) Parkinson's disease without dyskinesia: Status: Acute Code(s): G20.A1 - Parkinson's disease without dyskinesia, without mention of fluctuations Plan Patient is a 72 year old female with hx of MDD, PTSD and Parkinson's disease who self presented to ER d/t her outpatient psychiatrist suggesting pt should be evaluated secondary to confusion, mood, weight loss and ability to take care of herself. Plan: CV 15 minute safety checks continue home medications referral to outpatient therapist referral to [facility] Consult to adjuster arbitrator discharge planning 06/02/2023 Neuro consult question parkinsonian hallucinations versus psychotic symptoms with Parkinson's patient on Paxil Wellbutrin might consider ECT will get swallowing study neuro consult consider Seroquel 06/02: will consult with outpt neuro MD hanna. speech eval supports continuing present diet. continue current mgmt for now. 06/03: per consultation with Dr Hanna, her belief is that psychosis is most likely related to primary progression of Parkinson's Dz, yet she recommends decreasing sinemet 25/100 from 2 tabs BID to 1.5 tabs BID, which is done. otherwise continue current mgmt. discuss possibility of ECT with mino. 06/04: refer for ECT consultation as outpt provider supportive, pt interested. per jacques, no neuro objection. add flexeril PRN spasm, consults for medical risk stratification and ECT, PT consult for LBP/spasm for exercises and positioning. 06/05: some mild improvement in PMR. interested in ECT. seen by mino and medicine for risk stratification. provided written education re ECT. on klonopin 1 TID, will decrease to 0.75 TID today, with further tapering over w/. planning for ECT saturday. 06/06: DC klonopin and start ativan 1 mg TID in its place. hold HS dose on saturday kenny prior to ECT. PT recs noted. otherwise continue current mgmt. 06/07 keep same treatment. 06/08 keep same treatment. 06/09: ECT #1 completed uneventfully today. stable presentation. continue current mgmt. 06/10: stable, no change to mgmt. ECT #2 tomorrow. 06/11: stable, no change in mgmt. ECT #2 completed without incident. T/C tapering off of benzos entirely, modifying anti-depressant regimen. 06/12: decrease ativan to 0.5/0.5/1 as of tomorrow. add cepacol lozenge for sore throat. ECT #3 tomorrow. 06/13: awaiting ECT for this afternoon. stable presentation. continue current mgmt. 06/14: no changes 06/15: no changes- ECT tomorrow Reason for continued inpatient stay Substantial Risk for: rapid decompensation Time Spent With Patient Time: Total time managing care of this patient today ____ minutes.
[2023-06-16 21:00] VITALS: BP 121/78; PULSE 77; RESP 16; TEMP 36.9; O2SAT 98
[2023-06-16] MEDS: Cyclobenzaprine HCl 10 MG TABLET PO (21:07)
[2023-06-16] MEDS: Throat Lozenge, Medicated LOZENGE 1 LOZENGE MUCOUS MEM (21:07)
[2023-06-17] VITALS (11 sets, daily range): BP systolic 132–173; BP diastolic 61–90; PULSE 61–76; RESP 13–20; TEMP 36.6–36.9; O2SAT 98–100
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
--- NOTE | 2023-06-17 07:01 | MHC.SHP ---
Pre-Procedural Eval Section A - 24 Hr Update-Section A only Date of Service: 06/17/23 The patient is an INPATIENT: Yes Changes since office visit: No Cold of Flu in the past 2 weeks, No New Medical Problems, No Changes in Medication and No Patient answered all questions The patient has been examined within 24 hours of the surgical procedure. The History & Physical has been completed within 30 days and I have reviewed it.: Yes Section B - Complete if H&P > 30 days Chief Complaint: crisis Allergies: Allergies Allergy/AdvReac Type Severity Reaction Status Date / Time tomato [TOMATO] Allergy Severe ANAPHYLAXIS Verified 05/29/23 14:15 Sulfa (Sulfonamide Allergy Intermediate palomoky, ROBLES Verified 05/29/23 14:15 Antibiotics) albuterol Allergy Unknown Unknown Verified 05/29/23 14:15 metoclopramide [Reglan] Allergy Unknown Unknown Verified 05/29/23 14:15 Plan I have reviewed the history and physical and performed a pertinent physical examination on my patient. No changes have occurred unless specified. Time Spent With Patient Time: Total time managing care of this patient today ____ minutes.
[2023-06-17] MEDS: Lactated Ringers 1,000 ML 50 ML IVCONT (07:03)
--- NOTE | 2023-06-17 07:35 | HO.ECTPROC ---
ECT Procedure Note Diagnosis/Treatment Date of Service: 06/17/23 Diagnosis: Major Depressive Disorder Previous ECT Date: 06/14/23 Current Treatment Number: 4 Treatment: Series Interval Clinical Notes: The patient reports improvement of her mood, less anxious. She denies side effects with ECT. ECT done as usual, no complications, no side effects wake up well. Time: Total time managing care of this patient today ____ minutes. ECT Settings Device: THYMATRON DGx Electrode Placement: Right Unilateral Program/Pulse Width: 0.25 Energy Percent: 100 Seizure Duration By EEG (in seconds): 42 Medications Administration General Anesthetic: Etomidate (12) Muscle Relaxant: Succinylcholine (80) Ancillary Medications Miscillaneous Medications: Propofol Airway Management Airway Management: Bag Mask Ventilation Treatment Recommendations No Changes Recommended: No change Notes: No side effects, no Zofran or Toradol given Pt Tolerated Procedure w/o Issue: Yes
[2023-06-17] MEDS: buPROPion HCl XL 300 MG TAB.ER.24H PO (08:58)
[2023-06-17] MEDS: LORazepam 0.5 MG TABLET PO ×2 (08:58→14:49)
[2023-06-17] MEDS: PARoxetine HCL 40 MG TABLET PO (08:59)
[2023-06-17] MEDS: Carbidopa/Levodopa 25/100 TABLET 1.5 TAB PO ×4 (09:00→22:41)
[2023-06-17] MEDS: Magnesium Hydrox/Alum Hydrox 30 ML ORAL.SUSP PO (12:41)
[2023-06-17] MEDS: Acetaminophen 325 MG TABLET 975 MG PO ×2 (12:43→22:42)
--- NOTE | 2023-06-17 16:17 | P.PNPSI_ITS ---
Subjective Subjective Date of Service: 06/17/23 Reason For Visit: crisis Interim History: lying in bed resting post-ECT. reports ongoing gradual improvement. agreeable to continue ativan taper. per staff, taking meds, napping. increased anxiety. slept 7-8 hours. Mental Status Exam Mental Status Exam Narrative: Pt is alert and oriented; behavior is cooperative and calm; dressed in casual attire; mood is fair; eye contact appropriate; Speech is louder, clearer; thought process is organized and goal directed; thought content is on tx; no SI/HI/AVH expressed. Diagnostics Vital Signs (24Hr): Vital Signs - 24 hr 06/16/23 21:00 06/17/23 06:23 06/17/23 06:33 Temperature 98.4 F 97.9 F 98 F Pulse Rate 77 76 64 Respiratory Rate 16 16 20 Blood Pressure 121/78 164/90 H 152/72 H Pulse Oximetry 98 98 100 Oxygen Delivery Method Room Air Room Air Oxygen Flow Rate 06/17/23 07:39 06/17/23 07:44 06/17/23 07:49 Temperature 98.4 F Pulse Rate 64 63 71 Respiratory Rate 13 16 16 Blood Pressure 173/72 H 158/73 H 159/76 H Pulse Oximetry 100 100 100 Oxygen Delivery Method Nasal Cannula with ETCO2 Nasal Cannula with ETCO2 Nasal Cannula with ETCO2 Oxygen Flow Rate 2 2 2 06/17/23 07:54 06/17/23 08:09 06/17/23 08:20 Temperature 97.8 F Pulse Rate 69 62 62 Respiratory Rate 16 16 16 Blood Pressure 137/63 134/61 144/72 H Pulse Oximetry 100 100 98 Oxygen Delivery Method Room Air Room Air Room Air Oxygen Flow Rate 06/17/23 08:50 06/17/23 09:23 Temperature 97.8 F 97.8 F Pulse Rate 61 61 Respiratory Rate 16 16 Blood Pressure 151/67 H 151/67 H Pulse Oximetry 98 98 Oxygen Delivery Method Room Air Oxygen Flow Rate BMI result Body Mass Index 22.5 Labs 05/30/23 16:55 06/01/23 07:27 Medications Medications Current Medications Acetaminophen (Acetaminophen 325 Mg Tablet) 975 mg PO Q6H PRN PRN Reason: Headache/Pain Mild Scale (1-3) Last Admin: 06/17/23 12:43 Dose: 650 mg Al Hydroxide/Mg Hydroxide (Magnesium Hydrox/Alum Hydrox 30 Ml Oral.Susp) 30 ml PO Q6H PRN PRN Reason: Heartburn/Nausea Last Admin: 06/17/23 12:41 Dose: 30 ml Albuterol Sulfate (Albuterol Sulfate 90 Mcg 8 Gm Inhaler) 2 puff INHALE Q6H PRN PRN Reason: shortness of breath or wheezing Benzocaine (Throat Lozenge, Medicated Lozenge) 1 lozenge MUCOUS MEM Q2H PRN PRN Reason: Sore Throat Last Admin: 06/15/23 21:19 Dose: 1 lozenge Benzocaine (Throat Lozenge, Medicated Lozenge) 1 lozenge MUCOUS MEM DAILY [facility] Last Admin: 06/16/23 21:07 Dose: 1 lozenge Bupropion HCl (Bupropion Hcl Xl 300 Mg Tab.Er.24h) 300 mg PO DAILY [facility] Last Admin: 06/17/23 08:58 Dose: 300 mg Carbidopa/Levodopa (Carbidopa/Levodopa 25/100 Tablet) 1.5 tab PO QID [facility] Last Admin: 06/17/23 13:23 Dose: 1.5 tab Cyclobenzaprine HCl (Cyclobenzaprine Hcl 10 Mg Tablet) 10 mg PO TID PRN PRN Reason: muscle spasm Last Admin: 06/16/23 21:07 Dose: 10 mg Famotidine (Famotidine 20 Mg Tablet) 40 mg PO Q48H [facility] Last Admin: 06/16/23 09:10 Dose: 40 mg Hydroxyzine HCl (Hydroxyzine Hcl 25 Mg Tablet) 25 mg PO Q6H PRN PRN Reason: Anxiety Last Admin: 06/14/23 00:45 Dose: 25 mg Lorazepam (Lorazepam 1 Mg Tablet) 1 mg PO BEDTIME [facility] Last Admin: 06/16/23 22:20 Dose: Not Given Lorazepam (Lorazepam 0.5 Mg Tablet) 0.5 mg PO BID@0900,1500 [facility] Last Admin: 06/17/23 14:49 Dose: 0.5 mg Magnesium Hydroxide (Milk Of Magnesia 30 Ml Oral.Susp) 30 ml PO DAILY PRN PRN Reason: Constipation Paroxetine HCl (Paroxetine Hcl 40 Mg Tablet) 40 mg PO DAILY [facility] Last Admin: 06/17/23 08:59 Dose: 40 mg Trazodone HCl (Trazodone Hcl 50 Mg Tablet) 50 mg PO BEDTIME MRX1 PRN PRN Reason: Insomnia Allergies Allergies Allergy/AdvReac Type Severity Reaction Status Date / Time tomato [TOMATO] Allergy Severe ANAPHYLAXIS Verified 05/29/23 14:15 Sulfa (Sulfonamide Allergy Intermediate susan ROBLES Verified 05/29/23 14:15 Antibiotics) albuterol Allergy Unknown Unknown Verified 05/29/23 14:15 metoclopramide [Reglan] Allergy Unknown Unknown Verified 05/29/23 14:15 Assessment & Plan Assessment & Plan (1) MDD (major depressive disorder), recurrent episode, severe: Status: Acute Code(s): F33.2 - Major depressive disorder, recurrent severe without psychotic features (2) PTSD (post-traumatic stress disorder): Status: Acute Code(s): F43.10 - Post-traumatic stress disorder, unspecified (3) Parkinson's disease without dyskinesia: Status: Acute Code(s): G20.A1 - Parkinson's disease without dyskinesia, without mention of fluctuations Plan Patient is a 72 year old female with hx of MDD, PTSD and Parkinson's disease who self presented to ER d/t her outpatient psychiatrist suggesting pt should be evaluated secondary to confusion, mood, weight loss and ability to take care of herself. Plan: CV 15 minute safety checks continue home medications referral to outpatient therapist referral to [facility] Consult to rn cardiac cath discharge planning 06/02/2023 Neuro consult question parkinsonian hallucinations versus psychotic symptoms with Parkinson's patient on Paxil Wellbutrin might consider ECT will get swallowing study neuro consult consider Seroquel 06/02: will consult with outpt neuro MD hanna. speech eval supports continuing present diet. continue current mgmt for now. 06/03: per consultation with Dr Hanna, her belief is that psychosis is most likely related to primary progression of Parkinson's Dz, yet she recommends decreasing sinemet 25/100 from 2 tabs BID to 1.5 tabs BID, which is done. otherwise continue current mgmt. discuss possibility of ECT with mino. 06/04: refer for ECT consultation as outpt provider supportive, pt interested. per jacques, no neuro objection. add flexeril PRN spasm, consults for medical risk stratification and ECT, PT consult for LBP/spasm for exercises and positioning. 06/05: some mild improvement in PMR. interested in ECT. seen by mino and medicine for risk stratification. provided written education re ECT. on klonopin 1 TID, will decrease to 0.75 TID today, with further tapering over /. planning for ECT saturday. 06/06: DC klonopin and start ativan 1 mg TID in its place. hold HS dose on saturday kenny prior to ECT. PT recs noted. otherwise continue current mgmt. 06/07 keep same treatment. 06/08 keep same treatment. 06/09: ECT #1 completed uneventfully today. stable presentation. continue current mgmt. 06/10: stable, no change to mgmt. ECT #2 tomorrow. 06/11: stable, no change in mgmt. ECT #2 completed without incident. T/C tapering off of benzos entirely, modifying anti-depressant regimen. 06/12: decrease ativan to 0.5/0.5/1 as of tomorrow. add cepacol lozenge for sore throat. ECT #3 tomorrow. 06/13: awaiting ECT for this afternoon. stable presentation. continue current mgmt. 06/14: no changes 06/15: no changes- ECT tomorrow 06/16: clearly but modestly improved from admission. faster and brighter. continue ativan taper and ECT. Reason for continued inpatient stay Substantial Risk for: harm to self, inability to function and rapid decompensation Time Spent With Patient Time: Total time managing care of this patient today __25__ minutes.
[2023-06-17] MEDS: LORazepam 0.5 MG TABLET 0.75 MG PO (22:41)
[2023-06-18 06:00] VITALS: BP 114/55; PULSE 70; RESP 18; TEMP 36.7; O2SAT 97
[2023-06-18] MEDS: LORazepam 0.5 MG TABLET 0.25 MG PO ×2 (09:08→15:01)
[2023-06-18] MEDS: Famotidine 20 MG TABLET 40 MG PO (09:09)
[2023-06-18] MEDS: PARoxetine HCL 40 MG TABLET PO (09:09)
[2023-06-18] MEDS: buPROPion HCl XL 300 MG TAB.ER.24H PO (09:09)
[2023-06-18] MEDS: Carbidopa/Levodopa 25/100 TABLET 1.5 TAB PO ×4 (09:09→21:39)
[2023-06-18] MEDS: Throat Lozenge, Medicated LOZENGE 1 LOZENGE MUCOUS MEM (09:10)
--- NOTE | 2023-06-18 17:11 | P.PNPSI_ITS ---
Subjective Subjective Date of Service: 06/18/23 Reason For Visit: crisis Interim History: calm, cooperative. not slowed, appears clearer mentally. denies sense of someone at her back. reports parkinsonian tremor is generally not bad. mood improved. no questions or complaints. per staff, isolative. ROBLES. taking meds. brighter, feeling better. slept about 7 hours. Mental Status Exam Mental Status Exam Narrative: Pt is alert and oriented; behavior is cooperative and calm; dressed in casual attire; mood is fair; eye contact appropriate; Speech is louder, clearer; thought process is organized and goal directed; thought content is on tx; no SI/HI/AVH expressed. Diagnostics Vital Signs (24Hr): Vital Signs - 24 hr 06/17/23 19:50 06/18/23 06:00 Temperature 98.2 F 98.0 F Pulse Rate 70 70 Respiratory Rate 16 18 Blood Pressure 132/63 114/55 L Pulse Oximetry 98 97 Oxygen Delivery Method Room Air Room Air BMI result Body Mass Index 22.5 Labs 05/30/23 16:55 06/01/23 07:27 Medications Medications Current Medications Acetaminophen (Acetaminophen 325 Mg Tablet) 975 mg PO Q6H PRN PRN Reason: Headache/Pain Mild Scale (1-3) Last Admin: 06/17/23 22:42 Dose: 650 mg Al Hydroxide/Mg Hydroxide (Magnesium Hydrox/Alum Hydrox 30 Ml Oral.Susp) 30 ml PO Q6H PRN PRN Reason: Heartburn/Nausea Last Admin: 06/17/23 12:41 Dose: 30 ml Albuterol Sulfate (Albuterol Sulfate 90 Mcg 8 Gm Inhaler) 2 puff INHALE Q6H PRN PRN Reason: shortness of breath or wheezing Benzocaine (Throat Lozenge, Medicated Lozenge) 1 lozenge MUCOUS MEM Q2H PRN PRN Reason: Sore Throat Last Admin: 06/15/23 21:19 Dose: 1 lozenge Benzocaine (Throat Lozenge, Medicated Lozenge) 1 lozenge MUCOUS MEM DAILY [facility] Last Admin: 06/18/23 09:10 Dose: 1 lozenge Bupropion HCl (Bupropion Hcl Xl 300 Mg Tab.Er.24h) 300 mg PO DAILY [facility] Last Admin: 06/18/23 09:09 Dose: 300 mg Carbidopa/Levodopa (Carbidopa/Levodopa 25/100 Tablet) 1.5 tab PO QID [facility] Last Admin: 06/18/23 12:58 Dose: 1.5 tab Cyclobenzaprine HCl (Cyclobenzaprine Hcl 10 Mg Tablet) 10 mg PO TID PRN PRN Reason: muscle spasm Last Admin: 06/16/23 21:07 Dose: 10 mg Famotidine (Famotidine 20 Mg Tablet) 40 mg PO Q48H [facility] Last Admin: 06/18/23 09:09 Dose: 40 mg Hydroxyzine HCl (Hydroxyzine Hcl 25 Mg Tablet) 25 mg PO Q6H PRN PRN Reason: Anxiety Last Admin: 06/14/23 00:45 Dose: 25 mg Lorazepam (Lorazepam 0.5 Mg Tablet) 0.25 mg PO BID@0900,1500 [facility] Last Admin: 06/18/23 15:01 Dose: 0.25 mg Lorazepam (Lorazepam 0.5 Mg Tablet) 0.75 mg PO BEDTIME [facility] Last Admin: 06/17/23 22:41 Dose: 0.75 mg Magnesium Hydroxide (Milk Of Magnesia 30 Ml Oral.Susp) 30 ml PO DAILY PRN PRN Reason: Constipation Paroxetine HCl (Paroxetine Hcl 40 Mg Tablet) 40 mg PO DAILY [facility] Last Admin: 06/18/23 09:09 Dose: 40 mg Trazodone HCl (Trazodone Hcl 50 Mg Tablet) 50 mg PO BEDTIME MRX1 PRN PRN Reason: Insomnia Allergies Allergies Allergy/AdvReac Type Severity Reaction Status Date / Time tomato [TOMATO] Allergy Severe ANAPHYLAXIS Verified 05/29/23 14:15 Sulfa (Sulfonamide Allergy Intermediate TRAVIS davis Verified 05/29/23 14:15 Antibiotics) albuterol Allergy Unknown Unknown Verified 05/29/23 14:15 metoclopramide [Reglan] Allergy Unknown Unknown Verified 05/29/23 14:15 Assessment & Plan Assessment & Plan (1) MDD (major depressive disorder), recurrent episode, severe: Status: Acute Code(s): F33.2 - Major depressive disorder, recurrent severe without psychotic features (2) PTSD (post-traumatic stress disorder): Status: Acute Code(s): F43.10 - Post-traumatic stress disorder, unspecified (3) Parkinson's disease without dyskinesia: Status: Acute Code(s): G20.A1 - Parkinson's disease without dyskinesia, without mention of fluctuations Plan Patient is a 72 year old female with hx of MDD, PTSD and Parkinson's disease who self presented to ER d/t her outpatient psychiatrist suggesting pt should be evaluated secondary to confusion, mood, weight loss and ability to take care of herself. Plan: CV 15 minute safety checks continue home medications referral to outpatient therapist referral to [facility] Consult to steward/stewardess smoke room discharge planning 06/02/2023 Neuro consult question parkinsonian hallucinations versus psychotic symptoms with Parkinson's patient on Paxil Wellbutrin might consider ECT will get swallowing study neuro consult consider Seroquel 06/02: will consult with outpt neuro MD hanna. speech eval supports continuing present diet. continue current mgmt for now. 06/03: per consultation with Dr Hanna, her belief is that psychosis is most likely related to primary progression of Parkinson's Dz, yet she recommends decreasing sinemet 25/100 from 2 tabs BID to 1.5 tabs BID, which is done. otherwise continue current mgmt. discuss possibility of ECT with mino. 06/04: refer for ECT consultation as outpt provider supportive, pt interested. per jacques, no neuro objection. add flexeril PRN spasm, consults for medical risk stratification and ECT, PT consult for LBP/spasm for exercises and positioning. 06/05: some mild improvement in PMR. interested in ECT. seen by mino and medicine for risk stratification. provided written education re ECT. on klonopin 1 TID, will decrease to 0.75 TID today, with further tapering over w/e. planning for ECT saturday. 06/06: DC klonopin and start ativan 1 mg TID in its place. hold HS dose on saturday kenny prior to ECT. PT recs noted. otherwise continue current mgmt. 06/07 keep same treatment. 06/08 keep same treatment. 06/09: ECT #1 completed uneventfully today. stable presentation. continue current mgmt. 06/10: stable, no change to mgmt. ECT #2 tomorrow. 06/11: stable, no change in mgmt. ECT #2 completed without incident. T/C tapering off of benzos entirely, modifying anti-depressant regimen. 06/12: decrease ativan to 0.5/0.5/1 as of tomorrow. add cepacol lozenge for sore throat. ECT #3 tomorrow. 06/13: awaiting ECT for this afternoon. stable presentation. continue current mgmt. 06/14: no changes 06/15: no changes- ECT tomorrow 06/16: clearly but modestly improved from admission. faster and brighter. continue ativan taper and ECT. 06/17: stable, improved. psychotic Sx appears to have resolved. ECT #5 tomorrow. taper ativan again tomorrow. Reason for continued inpatient stay Substantial Risk for: inability to function and rapid decompensation Time Spent With Patient Time: Total time managing care of this patient today __25__ minutes.
[2023-06-18] MEDS: Acetaminophen 325 MG TABLET 975 MG PO (17:37)
[2023-06-18 20:05] VITALS: BP 118/72; PULSE 87; RESP 16; TEMP 37.2; O2SAT 98
[2023-06-19] VITALS (9 sets, daily range): BP systolic 123–187; BP diastolic 53–112; PULSE 65–75; RESP 13–20; TEMP 36.8–37.1; O2SAT 96–100
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
--- NOTE | 2023-06-19 07:21 | MHC.SHP ---
Pre-Procedural Eval Section A - 24 Hr Update-Section A only Date of Service: 06/19/23 The patient is an INPATIENT: Yes Changes since office visit: Yes Changes in Medication; No Cold of Flu in the past 2 weeks, No New Medical Problems and No Patient answered all questions The patient has been examined within 24 hours of the surgical procedure. The History & Physical has been completed within 30 days and I have reviewed it.: Yes Section B - Complete if H&P > 30 days Chief Complaint: crisis Allergies: Allergies Allergy/AdvReac Type Severity Reaction Status Date / Time tomato [TOMATO] Allergy Severe ANAPHYLAXIS Verified 05/29/23 14:15 Sulfa (Sulfonamide Allergy Intermediate palomoky, ROBLES Verified 05/29/23 14:15 Antibiotics) albuterol Allergy Unknown Unknown Verified 05/29/23 14:15 metoclopramide [Reglan] Allergy Unknown Unknown Verified 05/29/23 14:15 Plan I have reviewed the history and physical and performed a pertinent physical examination on my patient. No changes have occurred unless specified. Time Spent With Patient Time: Total time managing care of this patient today ____ minutes.
--- NOTE | 2023-06-19 07:22 | HO.ECTPROC ---
ECT Procedure Note Diagnosis/Treatment Date of Service: 06/19/23 Diagnosis: Major Depressive Disorder Previous ECT Date: 06/17/23 Current Treatment Number: 5 Treatment: Series Interval Clinical Notes: The patient has shown significant improvement no longer experiencing tactile hallucinations or thoughts that a ghost is somehow behind her her mood is much improved Time: Total time managing care of this patient today __30__ minutes. ECT Settings Device: THYMATRON DGx Electrode Placement: Right Unilateral Program/Pulse Width: 0.25 Energy Percent: 100 Seizure Duration By EEG (in seconds): 50 Medications Administration General Anesthetic: Etomidate (12) Muscle Relaxant: Succinylcholine (80) Ancillary Medications Miscillaneous Medications: Propofol Airway Management Airway Management: Bag Mask Ventilation Treatment Recommendations No Changes Recommended: No change Notes: No side effects, no Zofran or Toradol given Pt Tolerated Procedure w/o Issue: Yes
[2023-06-19] MEDS: Throat Lozenge, Medicated LOZENGE 1 LOZENGE MUCOUS MEM (09:27)
[2023-06-19] MEDS: buPROPion HCl XL 300 MG TAB.ER.24H PO (09:27)
[2023-06-19] MEDS: LORazepam 0.5 MG TABLET 0.25 MG PO (09:27)
[2023-06-19] MEDS: Carbidopa/Levodopa 25/100 TABLET 1.5 TAB PO ×4 (09:28→21:58)
[2023-06-19] MEDS: PARoxetine HCL 40 MG TABLET PO (09:28)
--- NOTE | 2023-06-19 15:40 | HO.PSYCHPN ---
Subjective Subjective Date of Service: 06/19/23 Reason For Visit: crisis Interim History: calm, cooperative. feeling improved, ECT #5 completed. no issues. continue ativan taper. per staff, ECT this morning. appeared to have slept all NOC. Mental Status Exam Mental Status Exam Narrative: Pt is alert and oriented; behavior is cooperative and calm; dressed in casual attire; mood is improved; eye contact appropriate; Speech is louder, clearer; thought process is organized and goal directed; thought content is on tx; no SI/HI/AVH expressed. Diagnostics Vital Signs (24Hr): Vital Signs - 24 hr 06/18/23 20:05 06/19/23 06:05 06/19/23 06:52 Temperature 98.9 F 98.5 F 98.3 F Pulse Rate 87 72 67 Respiratory Rate 16 16 20 Blood Pressure 118/72 123/58 L 133/57 L Pulse Oximetry 98 97 98 Oxygen Delivery Method Room Air Room Air Oxygen Flow Rate 06/19/23 07:36 06/19/23 07:41 06/19/23 07:46 Temperature 98.2 F Pulse Rate 67 75 72 Respiratory Rate 13 14 16 Blood Pressure 187/79 H 166/112 H 147/69 H Pulse Oximetry 100 97 97 Oxygen Delivery Method Nasal Cannula with ETCO2 Nasal Cannula with ETCO2 Nasal Cannula with ETCO2 Oxygen Flow Rate 2 2 2 06/19/23 07:51 06/19/23 08:06 06/19/23 08:19 Temperature 98.7 F 98.7 F Pulse Rate 73 68 65 Respiratory Rate 16 16 16 Blood Pressure 144/61 H 149/72 H 123/53 L Pulse Oximetry 97 96 97 Oxygen Delivery Method Nasal Cannula with ETCO2 Room Air Room Air Oxygen Flow Rate 2 06/19/23 08:47 Temperature 98.6 F Pulse Rate 70 Respiratory Rate 18 Blood Pressure 131/69 Pulse Oximetry 98 Oxygen Delivery Method Oxygen Flow Rate BMI result Body Mass Index 22.5 Labs 05/30/23 16:55 06/01/23 07:27 Medications Medications Current Medications Acetaminophen (Acetaminophen 325 Mg Tablet) 975 mg PO Q6H PRN PRN Reason: Headache/Pain Mild Scale (1-3) Last Admin: 06/18/23 17:37 Dose: 975 mg Al Hydroxide/Mg Hydroxide (Magnesium Hydrox/Alum Hydrox 30 Ml Oral.Susp) 30 ml PO Q6H PRN PRN Reason: Heartburn/Nausea Last Admin: 06/17/23 12:41 Dose: 30 ml Albuterol Sulfate (Albuterol Sulfate 90 Mcg 8 Gm Inhaler) 2 puff INHALE Q6H PRN PRN Reason: shortness of breath or wheezing Benzocaine (Throat Lozenge, Medicated Lozenge) 1 lozenge MUCOUS MEM Q2H PRN PRN Reason: Sore Throat Last Admin: 06/15/23 21:19 Dose: 1 lozenge Benzocaine (Throat Lozenge, Medicated Lozenge) 1 lozenge MUCOUS MEM DAILY [facility] Last Admin: 06/19/23 09:27 Dose: 1 lozenge Bupropion HCl (Bupropion Hcl Xl 300 Mg Tab.Er.24h) 300 mg PO DAILY [facility] Last Admin: 06/19/23 09:27 Dose: 300 mg Carbidopa/Levodopa (Carbidopa/Levodopa 25/100 Tablet) 1.5 tab PO QID [facility] Last Admin: 06/19/23 13:35 Dose: 1.5 tab Cyclobenzaprine HCl (Cyclobenzaprine Hcl 10 Mg Tablet) 10 mg PO TID PRN PRN Reason: muscle spasm Last Admin: 06/16/23 21:07 Dose: 10 mg Famotidine (Famotidine 20 Mg Tablet) 40 mg PO Q48H [facility] Last Admin: 06/18/23 09:09 Dose: 40 mg Hydroxyzine HCl (Hydroxyzine Hcl 25 Mg Tablet) 25 mg PO Q6H PRN PRN Reason: Anxiety Last Admin: 06/14/23 00:45 Dose: 25 mg Lorazepam (Lorazepam 0.5 Mg Tablet) 0.5 mg PO BEDTIME [facility] Magnesium Hydroxide (Milk Of Magnesia 30 Ml Oral.Susp) 30 ml PO DAILY PRN PRN Reason: Constipation Paroxetine HCl (Paroxetine Hcl 40 Mg Tablet) 40 mg PO DAILY [facility] Last Admin: 06/19/23 09:28 Dose: 40 mg Trazodone HCl (Trazodone Hcl 50 Mg Tablet) 50 mg PO BEDTIME MRX1 PRN PRN Reason: Insomnia Allergies Allergies Allergy/AdvReac Type Severity Reaction Status Date / Time tomato [TOMATO] Allergy Severe ANAPHYLAXIS Verified 05/29/23 14:15 Sulfa (Sulfonamide Allergy Intermediate shaky, ROBLES Verified 05/29/23 14:15 Antibiotics) albuterol Allergy Unknown Unknown Verified 05/29/23 14:15 metoclopramide [Reglan] Allergy Unknown Unknown Verified 05/29/23 14:15 Assessment & Plan Assessment & Plan (1) MDD (major depressive disorder), recurrent episode, severe: Status: Acute Code(s): F33.2 - Major depressive disorder, recurrent severe without psychotic features (2) PTSD (post-traumatic stress disorder): Status: Acute Code(s): F43.10 - Post-traumatic stress disorder, unspecified (3) Parkinson's disease without dyskinesia: Status: Acute Code(s): G20.A1 - Parkinson's disease without dyskinesia, without mention of fluctuations Plan Patient is a 72 year old female with hx of MDD, PTSD and Parkinson's disease who self presented to ER d/t her outpatient psychiatrist suggesting pt should be evaluated secondary to confusion, mood, weight loss and ability to take care of herself. Plan: CV 15 minute safety checks continue home medications referral to outpatient therapist referral to [facility] Consult to home based assistant discharge planning 06/02/2023 Neuro consult question parkinsonian hallucinations versus psychotic symptoms with Parkinson's patient on Paxil Wellbutrin might consider ECT will get swallowing study neuro consult consider Seroquel 06/02: will consult with outpt neuro MD hanna. speech eval supports continuing present diet. continue current mgmt for now. 06/03: per consultation with Dr Hanna, her belief is that psychosis is most likely related to primary progression of Parkinson's Dz, yet she recommends decreasing sinemet 25/100 from 2 tabs BID to 1.5 tabs BID, which is done. otherwise continue current mgmt. discuss possibility of ECT with mino. 06/04: refer for ECT consultation as outpt provider supportive, pt interested. per jacques, no neuro objection. add flexeril PRN spasm, consults for medical risk stratification and ECT, PT consult for LBP/spasm for exercises and positioning. 06/05: some mild improvement in PMR. interested in ECT. seen by mino and medicine for risk stratification. provided written education re ECT. on klonopin 1 TID, will decrease to 0.75 TID today, with further tapering over w/e. planning for ECT saturday. 06/06: DC klonopin and start ativan 1 mg TID in its place. hold HS dose on saturday kenny prior to ECT. PT recs noted. otherwise continue current mgmt. 06/07 keep same treatment. 06/08 keep same treatment. 06/09: ECT #1 completed uneventfully today. stable presentation. continue current mgmt. 06/10: stable, no change to mgmt. ECT #2 tomorrow. 06/11: stable, no change in mgmt. ECT #2 completed without incident. T/C tapering off of benzos entirely, modifying anti-depressant regimen. 06/12: decrease ativan to 0.5/0.5/1 as of tomorrow. add cepacol lozenge for sore throat. ECT #3 tomorrow. 06/13: awaiting ECT for this afternoon. stable presentation. continue current mgmt. 06/14: no changes 06/15: no changes- ECT tomorrow 06/16: clearly but modestly improved from admission. faster and brighter. continue ativan taper and ECT. 06/17: stable, improved. psychotic Sx appears to have resolved. ECT #5 tomorrow. taper ativan again tomorrow. 06/18: decrease ativan from 0.25/0.25/0.75 to 0.5 QHS. ECT #6 saturday, planning for DC next saturday. Reason for continued inpatient stay Substantial Risk for: harm to self, inability to function and rapid decompensation Time Spent With Patient Time: Total time managing care of this patient today __25__ minutes.
[2023-06-19] MEDS: traZODone HCL 50 MG TABLET PO (21:58)
[2023-06-19] MEDS: LORazepam 0.5 MG TABLET PO (21:59)
[2023-06-19] MEDS: Cyclobenzaprine HCl 10 MG TABLET PO (22:10)
[2023-06-20] MEDS: PARoxetine HCL 40 MG TABLET PO (08:57)
[2023-06-20] MEDS: Carbidopa/Levodopa 25/100 TABLET 1.5 TAB PO ×4 (08:57→21:28)
[2023-06-20] MEDS: Throat Lozenge, Medicated LOZENGE 1 LOZENGE MUCOUS MEM (08:58)
[2023-06-20] MEDS: buPROPion HCl XL 300 MG TAB.ER.24H PO (08:58)
[2023-06-20] MEDS: Famotidine 20 MG TABLET 40 MG PO (08:58)
--- NOTE | 2023-06-20 17:39 | P.PNPSI_ITS ---
Subjective Subjective Date of Service: 06/20/23 Reason For Visit: crisis Interim History: calm, cooperative. anxiety controllable, depression not too bad. c/o oral ulcerations. agreeable to DC ativan. per staff w/drawn, taking meds. brighter eves. slept all NOC. D/C Tues. Mental Status Exam Mental Status Exam Narrative: Pt is alert and oriented; behavior is cooperative and calm; dressed in casual attire; mood is improved; eye contact appropriate; Speech is louder, clearer; thought process is organized and goal directed; thought content is on tx; no SI/HI/AVH expressed. Diagnostics Vital Signs (24Hr): BMI result Body Mass Index 22.5 Labs 05/30/23 16:55 06/01/23 07:27 Medications Medications Current Medications Acetaminophen (Acetaminophen 325 Mg Tablet) 975 mg PO Q6H PRN PRN Reason: Headache/Pain Mild Scale (1-3) Last Admin: 06/18/23 17:37 Dose: 975 mg Al Hydroxide/Mg Hydroxide (Magnesium Hydrox/Alum Hydrox 30 Ml Oral.Susp) 30 ml PO Q6H PRN PRN Reason: Heartburn/Nausea Last Admin: 06/17/23 12:41 Dose: 30 ml Albuterol Sulfate (Albuterol Sulfate 90 Mcg 8 Gm Inhaler) 2 puff INHALE Q6H PRN PRN Reason: shortness of breath or wheezing Benzocaine (Throat Lozenge, Medicated Lozenge) 1 lozenge MUCOUS MEM Q2H PRN PRN Reason: Sore Throat Last Admin: 06/15/23 21:19 Dose: 1 lozenge Benzocaine (Throat Lozenge, Medicated Lozenge) 1 lozenge MUCOUS MEM DAILY [facility] Last Admin: 06/20/23 08:58 Dose: 1 lozenge Benzocaine (Benzocaine 20 % Oral Gel 9 Gm Tube) 1 appl MUCOUS MEM QID PRN; Protocol PRN Reason: oral ulcerations Bupropion HCl (Bupropion Hcl Xl 300 Mg Tab.Er.24h) 300 mg PO DAILY [facility] Last Admin: 06/20/23 08:58 Dose: 300 mg Carbidopa/Levodopa (Carbidopa/Levodopa 25/100 Tablet) 1.5 tab PO QID [facility] Last Admin: 06/20/23 12:22 Dose: 1.5 tab Cyclobenzaprine HCl (Cyclobenzaprine Hcl 10 Mg Tablet) 10 mg PO TID PRN PRN Reason: muscle spasm Last Admin: 06/19/23 22:10 Dose: 10 mg Famotidine (Famotidine 20 Mg Tablet) 40 mg PO Q48H [facility] Last Admin: 06/20/23 08:58 Dose: 40 mg Hydroxyzine HCl (Hydroxyzine Hcl 25 Mg Tablet) 25 mg PO Q6H PRN PRN Reason: Anxiety Last Admin: 06/14/23 00:45 Dose: 25 mg Lorazepam (Lorazepam 0.5 Mg Tablet) 0.5 mg PO BEDTIME ONE Stop: 06/20/23 21:01 Magnesium Hydroxide (Milk Of Magnesia 30 Ml Oral.Susp) 30 ml PO DAILY PRN PRN Reason: Constipation Paroxetine HCl (Paroxetine Hcl 40 Mg Tablet) 40 mg PO DAILY [facility] Last Admin: 06/20/23 08:57 Dose: 40 mg Trazodone HCl (Trazodone Hcl 50 Mg Tablet) 50 mg PO BEDTIME MRX1 PRN PRN Reason: Insomnia Last Admin: 06/19/23 21:58 Dose: 50 mg Allergies Allergies Allergy/AdvReac Type Severity Reaction Status Date / Time tomato [TOMATO] Allergy Severe ANAPHYLAXIS Verified 05/29/23 14:15 Sulfa (Sulfonamide Allergy Intermediate susan ROBLES Verified 05/29/23 14:15 Antibiotics) albuterol Allergy Unknown Unknown Verified 05/29/23 14:15 metoclopramide [Reglan] Allergy Unknown Unknown Verified 05/29/23 14:15 Assessment & Plan Assessment & Plan (1) MDD (major depressive disorder), recurrent episode, severe: Status: Acute Code(s): F33.2 - Major depressive disorder, recurrent severe without psychotic features (2) PTSD (post-traumatic stress disorder): Status: Acute Code(s): F43.10 - Post-traumatic stress disorder, unspecified (3) Parkinson's disease without dyskinesia: Status: Acute Code(s): G20.A1 - Parkinson's disease without dyskinesia, without mention of fluctuations Plan Patient is a 72 year old female with hx of MDD, PTSD and Parkinson's disease who self presented to ER d/t her outpatient psychiatrist suggesting pt should be evaluated secondary to confusion, mood, weight loss and ability to take care of herself. Plan: CV 15 minute safety checks continue home medications referral to outpatient therapist referral to [facility] Consult to statistical typist discharge planning 06/02/2023 Neuro consult question parkinsonian hallucinations versus psychotic symptoms with Parkinson's patient on Paxil Wellbutrin might consider ECT will get swallowing study neuro consult consider Seroquel 06/02: will consult with outpt neuro MD hanna. speech eval supports continuing present diet. continue current mgmt for now. 06/03: per consultation with Dr Hanna, her belief is that psychosis is most likely related to primary progression of Parkinson's Dz, yet she recommends decreasing sinemet 25/100 from 2 tabs BID to 1.5 tabs BID, which is done. otherwise continue current mgmt. discuss possibility of ECT with mino. 06/04: refer for ECT consultation as outpt provider supportive, pt interested. per jacques, no neuro objection. add flexeril PRN spasm, consults for medical risk stratification and ECT, PT consult for LBP/spasm for exercises and positioning. 06/05: some mild improvement in PMR. interested in ECT. seen by mino and medicine for risk stratification. provided written education re ECT. on klonopin 1 TID, will decrease to 0.75 TID today, with further tapering over w/. planning for ECT saturday. 06/06: DC klonopin and start ativan 1 mg TID in its place. hold HS dose on saturday kenny prior to ECT. PT recs noted. otherwise continue current mgmt. 06/07 keep same treatment. 06/08 keep same treatment. 06/09: ECT #1 completed uneventfully today. stable presentation. continue current mgmt. 06/10: stable, no change to mgmt. ECT #2 tomorrow. 06/11: stable, no change in mgmt. ECT #2 completed without incident. T/C tapering off of benzos entirely, modifying anti-depressant regimen. 06/12: decrease ativan to 0.5/0.5/1 as of tomorrow. add cepacol lozenge for sore throat. ECT #3 tomorrow. 06/13: awaiting ECT for this afternoon. stable presentation. continue current mgmt. 06/14: no changes 06/15: no changes- ECT tomorrow 06/16: clearly but modestly improved from admission. faster and brighter. continue ativan taper and ECT. 06/17: stable, improved. psychotic Sx appears to have resolved. ECT #5 tomorrow. taper ativan again tomorrow. 06/18: decrease ativan from 0.25/0.25/0.75 to 0.5 QHS. ECT #6 saturday, planning for DC next saturday. 06/19: DC ativan. ECT #6 tomorrow. planning to DC home next saturday. improved mood and anxiety, resolved psychotic Sx. Reason for continued inpatient stay Substantial Risk for: inability to function and rapid decompensation Time Spent With Patient Time: Total time managing care of this patient today __25__ minutes.
[2023-06-20] MEDS: traZODone HCL 50 MG TABLET PO (21:28)
[2023-06-20] MEDS: Cyclobenzaprine HCl 10 MG TABLET PO (21:28)
--- NOTE | 2023-06-20 22:05 | PC.NURSE ---
Patient given Trazodone PO prn for sleep and Flexiril PO prn for muscle tremors.
[2023-06-21] VITALS (11 sets, daily range): BP systolic 104–140; BP diastolic 52–74; PULSE 60–83; RESP 11–16; TEMP 36.3–37.6; O2SAT 96–99
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
--- NOTE | 2023-06-21 07:47 | MHC.SHP ---
Pre-Procedural Eval Section A - 24 Hr Update-Section A only Date of Service: 06/21/23 The patient is an INPATIENT: Yes Changes since office visit: Yes Patient answered all questions; No Cold of Flu in the past 2 weeks, No New Medical Problems and No Changes in Medication The patient has been examined within 24 hours of the surgical procedure. The History & Physical has been completed within 30 days and I have reviewed it.: Yes Section B - Complete if H&P > 30 days Chief Complaint: crisis Allergies: Allergies Allergy/AdvReac Type Severity Reaction Status Date / Time tomato [TOMATO] Allergy Severe ANAPHYLAXIS Verified 05/29/23 14:15 Sulfa (Sulfonamide Allergy Intermediate [place], ROBLES Verified 05/29/23 14:15 Antibiotics) albuterol Allergy Unknown Unknown Verified 05/29/23 14:15 metoclopramide [Reglan] Allergy Unknown Unknown Verified 05/29/23 14:15 Plan I have reviewed the history and physical and performed a pertinent physical examination on my patient. No changes have occurred unless specified. Time Spent With Patient Time: Total time managing care of this patient today ____ minutes.
--- NOTE | 2023-06-21 07:48 | MHC.SHP ---
Pre-Procedural Eval Section A - 24 Hr Update-Section A only Date of Service: 06/21/23 The patient is an INPATIENT: Yes Changes since office visit: Yes Patient answered all questions; No Cold of Flu in the past 2 weeks, No New Medical Problems and No Changes in Medication Section B - Complete if H&P > 30 days Chief Complaint: crisis Allergies: Allergies Allergy/AdvReac Type Severity Reaction Status Date / Time tomato [TOMATO] Allergy Severe ANAPHYLAXIS Verified 05/29/23 14:15 Sulfa (Sulfonamide Allergy Intermediate TRAVIS davis Verified 05/29/23 14:15 Antibiotics) albuterol Allergy Unknown Unknown Verified 05/29/23 14:15 metoclopramide [Reglan] Allergy Unknown Unknown Verified 05/29/23 14:15 Plan I have reviewed the history and physical and performed a pertinent physical examination on my patient. No changes have occurred unless specified. Time Spent With Patient Time: Total time managing care of this patient today ____ minutes.
--- NOTE | 2023-06-21 07:48 | HO.ECTPROC ---
ECT Procedure Note Diagnosis/Treatment Date of Service: 06/21/23 Diagnosis: Major Depressive Disorder Previous ECT Date: 06/17/23 Current Treatment Number: 6 Treatment: Series Interval Clinical Notes: The patient has shown significant improvement no longer experiencing tactile hallucinations or thoughts that a ghost is somehow behind her her mood is much improved suggest continuation tx Time: Total time managing care of this patient today ____ minutes. ECT Settings Device: THYMATRON DGx Electrode Placement: Right Unilateral Program/Pulse Width: 0.25 Energy Percent: 100 Seizure Duration By EEG (in seconds): 44 Medications Administration General Anesthetic: Etomidate (12) Muscle Relaxant: Succinylcholine (80) Ancillary Medications Miscillaneous Medications: Propofol (20) Airway Management Airway Management: Bag Mask Ventilation Treatment Recommendations No Changes Recommended: No change Notes: No side effects, no Zofran or Toradol given Pt Tolerated Procedure w/o Issue: Yes
[2023-06-21] MEDS: Carbidopa/Levodopa 25/100 TABLET 1.5 TAB PO ×4 (09:10→22:06)
[2023-06-21] MEDS: buPROPion HCl XL 300 MG TAB.ER.24H PO (09:13)
[2023-06-21] MEDS: PARoxetine HCL 40 MG TABLET PO (09:13)
[2023-06-21] MEDS: Throat Lozenge, Medicated LOZENGE 1 LOZENGE MUCOUS MEM (10:08)
--- NOTE | 2023-06-21 15:55 | P.PNPSI_ITS ---
Subjective Subjective Date of Service: 06/21/23 Reason For Visit: crisis Interim History: doing fine, no complaints or requests. last ECT was done today, no issues. planning to DC next saturday. family mtg held at 2 pm in preparation for discharge. per staff, anx/dep 6. improved mood. attending groups, broad affect. taking meds. slept about 7 hours. Mental Status Exam Mental Status Exam Narrative: Pt is alert and oriented; behavior is cooperative and calm; dressed in casual attire; mood is improved; eye contact appropriate; Speech is louder, clearer; thought process is organized and goal directed; thought content is on tx; no SI/HI/AVH expressed. Diagnostics Vital Signs (24Hr): Vital Signs - 24 hr 06/21/23 06:10 06/21/23 06:52 06/21/23 08:01 Temperature 98.5 F 97.4 F 98.5 F Pulse Rate 72 65 60 Respiratory Rate 14 14 12 Blood Pressure 104/56 L 111/52 L 133/55 L Pulse Oximetry 96 97 99 Oxygen Delivery Method Room Air Nasal Cannula with ETCO2 Oxygen Flow Rate 2 06/21/23 08:06 06/21/23 08:11 06/21/23 08:16 Temperature Pulse Rate 67 67 80 Respiratory Rate 11 L 11 L 12 Blood Pressure 139/63 122/55 L 119/74 Pulse Oximetry 99 99 99 Oxygen Delivery Method Nasal Cannula with ETCO2 Nasal Cannula with ETCO2 Nasal Cannula with ETCO2 Oxygen Flow Rate 2 2 2 06/21/23 08:31 06/21/23 08:46 06/21/23 09:05 Temperature 98.5 F 97.5 F Pulse Rate 73 74 68 Respiratory Rate 13 16 16 Blood Pressure 125/52 L 131/57 L 140/63 H Pulse Oximetry 97 99 98 Oxygen Delivery Method Room Air Room Air Oxygen Flow Rate 06/21/23 09:05 Temperature 97.5 F Pulse Rate 68 Respiratory Rate 16 Blood Pressure 140/63 H Pulse Oximetry 98 Oxygen Delivery Method Room Air Oxygen Flow Rate BMI result Body Mass Index 22.5 Labs 05/30/23 16:55 06/01/23 07:27 Medications Medications Current Medications Acetaminophen (Acetaminophen 325 Mg Tablet) 975 mg PO Q6H PRN PRN Reason: Headache/Pain Mild Scale (1-3) Last Admin: 06/18/23 17:37 Dose: 975 mg Al Hydroxide/Mg Hydroxide (Magnesium Hydrox/Alum Hydrox 30 Ml Oral.Susp) 30 ml PO Q6H PRN PRN Reason: Heartburn/Nausea Last Admin: 06/17/23 12:41 Dose: 30 ml Albuterol Sulfate (Albuterol Sulfate 90 Mcg 8 Gm Inhaler) 2 puff INHALE Q6H PRN PRN Reason: shortness of breath or wheezing Benzocaine (Throat Lozenge, Medicated Lozenge) 1 lozenge MUCOUS MEM Q2H PRN PRN Reason: Sore Throat Last Admin: 06/15/23 21:19 Dose: 1 lozenge Benzocaine (Throat Lozenge, Medicated Lozenge) 1 lozenge MUCOUS MEM DAILY [facility] Last Admin: 06/21/23 10:08 Dose: 1 lozenge Benzocaine (Benzocaine 20 % Oral Gel 9 Gm Tube) 1 appl MUCOUS MEM QID PRN; Protocol PRN Reason: oral ulcerations Bupropion HCl (Bupropion Hcl Xl 300 Mg Tab.Er.24h) 300 mg PO DAILY [facility] Last Admin: 06/21/23 09:13 Dose: 300 mg Carbidopa/Levodopa (Carbidopa/Levodopa 25/100 Tablet) 1.5 tab PO QID [facility] Last Admin: 06/21/23 13:06 Dose: 1.5 tab Cyclobenzaprine HCl (Cyclobenzaprine Hcl 10 Mg Tablet) 10 mg PO TID PRN PRN Reason: muscle spasm Last Admin: 06/20/23 21:28 Dose: 10 mg Famotidine (Famotidine 20 Mg Tablet) 40 mg PO Q48H [facility] Last Admin: 06/20/23 08:58 Dose: 40 mg Hydroxyzine HCl (Hydroxyzine Hcl 25 Mg Tablet) 25 mg PO Q6H PRN PRN Reason: Anxiety Last Admin: 06/14/23 00:45 Dose: 25 mg Magnesium Hydroxide (Milk Of Magnesia 30 Ml Oral.Susp) 30 ml PO DAILY PRN PRN Reason: Constipation Paroxetine HCl (Paroxetine Hcl 40 Mg Tablet) 40 mg PO DAILY [facility] Last Admin: 06/21/23 09:13 Dose: 40 mg Trazodone HCl (Trazodone Hcl 50 Mg Tablet) 50 mg PO BEDTIME MRX1 PRN PRN Reason: Insomnia Last Admin: 06/20/23 21:28 Dose: 50 mg Allergies Allergies Allergy/AdvReac Type Severity Reaction Status Date / Time tomato [TOMATO] Allergy Severe ANAPHYLAXIS Verified 05/29/23 14:15 Sulfa (Sulfonamide Allergy Intermediate TRAVIS davis Verified 05/29/23 14:15 Antibiotics) albuterol Allergy Unknown Unknown Verified 05/29/23 14:15 metoclopramide [Reglan] Allergy Unknown Unknown Verified 05/29/23 14:15 Assessment & Plan Assessment & Plan (1) MDD (major depressive disorder), recurrent episode, severe: Status: Acute Code(s): F33.2 - Major depressive disorder, recurrent severe without psychotic features (2) PTSD (post-traumatic stress disorder): Status: Acute Code(s): F43.10 - Post-traumatic stress disorder, unspecified (3) Parkinson's disease without dyskinesia: Status: Acute Code(s): G20.A1 - Parkinson's disease without dyskinesia, without mention of fluctuations Plan Patient is a 72 year old female with hx of MDD, PTSD and Parkinson's disease who self presented to ER d/t her outpatient psychiatrist suggesting pt should be evaluated secondary to confusion, mood, weight loss and ability to take care of herself. 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 speech eval supports continuing present diet. continue current mgmt for now. 06/03: per consultation with Dr Hanna, her belief is that psychosis is most likely related to primary progression of Parkinson's Dz, yet she recommends decreasing sinemet 25/100 from 2 tabs BID to 1.5 tabs BID, which is done. otherwise continue current mgmt. discuss possibility of ECT with mino. 06/04: refer for ECT consultation as outpt provider supportive, pt interested. per jacques, no neuro objection. add flexeril PRN spasm, consults for medical risk stratification and ECT, PT consult for LBP/spasm for exercises and positioning. 06/05: some mild improvement in PMR. interested in ECT. seen by mino and medicine for risk stratification. provided written education re ECT. on klonopin 1 TID, will decrease to 0.75 TID today, with further tapering over w/e. planning for ECT saturday. 06/06: DC klonopin and start ativan 1 mg TID in its place. hold HS dose on saturday kenny prior to ECT. PT recs noted. otherwise continue current mgmt. 06/07 keep same treatment. 06/08 keep same treatment. 06/09: ECT #1 completed uneventfully today. stable presentation. continue current mgmt. 06/10: stable, no change to mgmt. ECT #2 tomorrow. 06/11: stable, no change in mgmt. ECT #2 completed without incident. T/C tapering off of benzos entirely, modifying anti-depressant regimen. 06/12: decrease ativan to 0.5/0.5/1 as of tomorrow. add cepacol lozenge for sore throat. ECT #3 tomorrow. 06/13: awaiting ECT for this afternoon. stable presentation. continue current mgmt. 06/14: no changes 06/15: no changes- ECT tomorrow 06/16: clearly but modestly improved from admission. faster and brighter. continue ativan taper and ECT. 06/17: stable, improved. psychotic Sx appears to have resolved. ECT #5 tomorrow. taper ativan again tomorrow. 06/18: decrease ativan from 0.25/0.25/0.75 to 0.5 QHS. ECT #6 saturday, planning for DC next saturday. 06/19: DC ativan. ECT #6 tomorrow. planning to DC home next saturday. improved mood and anxiety, resolved psychotic Sx. 06/20: ECT went well, no issues. planning to DC next saturday. fmly mtg held. continue current mgmt. Reason for continued inpatient stay Substantial Risk for: inability to function and rapid decompensation Time Spent With Patient Time: Total time managing care of this patient today __45__ minutes.
[2023-06-21] MEDS: Cyclobenzaprine HCl 10 MG TABLET PO (22:06)
[2023-06-21] MEDS: traZODone HCL 50 MG TABLET PO (22:06)
[2023-06-22] MEDS: buPROPion HCl XL 300 MG TAB.ER.24H PO (08:13)
[2023-06-22] MEDS: PARoxetine HCL 40 MG TABLET PO (08:13)
[2023-06-22] MEDS: Carbidopa/Levodopa 25/100 TABLET 1.5 TAB PO ×4 (08:14→21:40)
[2023-06-22] MEDS: Famotidine 20 MG TABLET 40 MG PO (08:14)
[2023-06-22 08:40] VITALS: BP 126/58; PULSE 71; RESP 16; TEMP 37; O2SAT 99
[2023-06-22] MEDS: Throat Lozenge, Medicated LOZENGE 1 LOZENGE MUCOUS MEM (10:18)
--- NOTE | 2023-06-22 11:38 | HO.PSYCHPN ---
Subjective Subjective Date of Service: 06/22/23 Reason For Visit: crisis Interim History: met with patient. Discussed with Nursing. Overall doing very well. Responded well to ECT treatments. Plan discharge Saturday. Patient bright. No depression. Looking forward to discharge and maintenance ECT. Looking forward to seeing her 9-month-old Australian Pimentel dog and her nephews. Medication Compliance: Yes Side effects from medications: No Attending Groups: Intermittent Review of Systems Acute medical concerns: No Mental Status Exam Mental Status Exam Narrative: Pleasant. Engaged. Parkinsonism evident. Fair self-care. Bright in affect. Euthymic. No SI. No HI. No agitation. No psychosis. Insight and judgment fair Diagnostics Vital Signs (24Hr): Vital Signs - 24 hr 06/21/23 20:08 06/21/23 22:10 Temperature 99.6 F 98.1 F Pulse Rate 83 Respiratory Rate 16 Blood Pressure 134/58 L Pulse Oximetry 99 Oxygen Delivery Method Room Air BMI result Body Mass Index 22.5 Labs 05/30/23 16:55 06/01/23 07:27 Medications Medications Current Medications Acetaminophen (Acetaminophen 325 Mg Tablet) 975 mg PO Q6H PRN PRN Reason: Headache/Pain Mild Scale (1-3) Last Admin: 06/18/23 17:37 Dose: 975 mg Al Hydroxide/Mg Hydroxide (Magnesium Hydrox/Alum Hydrox 30 Ml Oral.Susp) 30 ml PO Q6H PRN PRN Reason: Heartburn/Nausea Last Admin: 06/17/23 12:41 Dose: 30 ml Albuterol Sulfate (Albuterol Sulfate 90 Mcg 8 Gm Inhaler) 2 puff INHALE Q6H PRN PRN Reason: shortness of breath or wheezing Benzocaine (Throat Lozenge, Medicated Lozenge) 1 lozenge MUCOUS MEM Q2H PRN PRN Reason: Sore Throat Last Admin: 06/15/23 21:19 Dose: 1 lozenge Benzocaine (Throat Lozenge, Medicated Lozenge) 1 lozenge MUCOUS MEM DAILY [facility] Last Admin: 06/22/23 10:18 Dose: 1 lozenge Benzocaine (Benzocaine 20 % Oral Gel 9 Gm Tube) 1 appl MUCOUS MEM QID PRN; Protocol PRN Reason: oral ulcerations Bupropion HCl (Bupropion Hcl Xl 300 Mg Tab.Er.24h) 300 mg PO DAILY ENZO Last Admin: 06/22/23 08:13 Dose: 300 mg Carbidopa/Levodopa (Carbidopa/Levodopa 25/100 Tablet) 1.5 tab PO QID [facility] Last Admin: 06/22/23 08:14 Dose: 1.5 tab Cyclobenzaprine HCl (Cyclobenzaprine Hcl 10 Mg Tablet) 10 mg PO TID PRN PRN Reason: muscle spasm Last Admin: 06/21/23 22:06 Dose: 10 mg Famotidine (Famotidine 20 Mg Tablet) 40 mg PO Q48H [facility] Last Admin: 06/22/23 08:14 Dose: 40 mg Hydroxyzine HCl (Hydroxyzine Hcl 25 Mg Tablet) 25 mg PO Q6H PRN PRN Reason: Anxiety Last Admin: 06/14/23 00:45 Dose: 25 mg Magnesium Hydroxide (Milk Of Magnesia 30 Ml Oral.Susp) 30 ml PO DAILY PRN PRN Reason: Constipation Paroxetine HCl (Paroxetine Hcl 40 Mg Tablet) 40 mg PO DAILY [facility] Last Admin: 06/22/23 08:13 Dose: 40 mg Trazodone HCl (Trazodone Hcl 50 Mg Tablet) 50 mg PO BEDTIME MRX1 PRN PRN Reason: Insomnia Last Admin: 06/21/23 22:06 Dose: 50 mg Allergies Allergies Allergy/AdvReac Type Severity Reaction Status Date / Time tomato [TOMATO] Allergy Severe ANAPHYLAXIS Verified 05/29/23 14:15 Sulfa (Sulfonamide Allergy Intermediate shaky, ROBLES Verified 05/29/23 14:15 Antibiotics) albuterol Allergy Unknown Unknown Verified 05/29/23 14:15 metoclopramide [Reglan] Allergy Unknown Unknown Verified 05/29/23 14:15 Assessment & Plan Assessment & Plan (1) MDD (major depressive disorder), recurrent episode, severe: Status: Acute Code(s): F33.2 - Major depressive disorder, recurrent severe without psychotic features (2) PTSD (post-traumatic stress disorder): Status: Acute Code(s): F43.10 - Post-traumatic stress disorder, unspecified (3) Parkinson's disease without dyskinesia: Status: Acute Code(s): G20.A1 - Parkinson's disease without dyskinesia, without mention of fluctuations Plan Patient is a 72 year old female with hx of MDD, PTSD and Parkinson's disease who self presented to ER d/t her outpatient psychiatrist suggesting pt should be evaluated secondary to confusion, mood, weight loss and ability to take care of herself. Plan: CV 15 minute safety checks continue home medications referral to outpatient therapist referral to [facility] Consult to tunnel heading inspector discharge planning 06/02/2023 Neuro consult question parkinsonian hallucinations versus psychotic symptoms with Parkinson's patient on Paxil Wellbutrin might consider ECT will get swallowing study neuro consult consider Seroquel 06/02: will consult with outpt neuro MD hanna. speech eval supports continuing present diet. continue current mgmt for now. 06/03: per consultation with Dr Hanna, her belief is that psychosis is most likely related to primary progression of Parkinson's Dz, yet she recommends decreasing sinemet 25/100 from 2 tabs BID to 1.5 tabs BID, which is done. otherwise continue current mgmt. discuss possibility of ECT with mino. 06/04: refer for ECT consultation as outpt provider supportive, pt interested. per jacques, no neuro objection. add flexeril PRN spasm, consults for medical risk stratification and ECT, PT consult for LBP/spasm for exercises and positioning. 06/05: some mild improvement in PMR. interested in ECT. seen by mino and medicine for risk stratification. provided written education re ECT. on klonopin 1 TID, will decrease to 0.75 TID today, with further tapering over w/. planning for ECT saturday. 06/06: DC klonopin and start ativan 1 mg TID in its place. hold HS dose on saturday kenny prior to ECT. PT recs noted. otherwise continue current mgmt. 06/07 keep same treatment. 06/08 keep same treatment. 06/09: ECT #1 completed uneventfully today. stable presentation. continue current mgmt. 06/10: stable, no change to mgmt. ECT #2 tomorrow. 06/11: stable, no change in mgmt. ECT #2 completed without incident. T/C tapering off of benzos entirely, modifying anti-depressant regimen. 06/12: decrease ativan to 0.5/0.5/1 as of tomorrow. add cepacol lozenge for sore throat. ECT #3 tomorrow. 06/13: awaiting ECT for this afternoon. stable presentation. continue current mgmt. 06/14: no changes 06/15: no changes- ECT tomorrow 06/16: clearly but modestly improved from admission. faster and brighter. continue ativan taper and ECT. 06/17: stable, improved. psychotic Sx appears to have resolved. ECT #5 tomorrow. taper ativan again tomorrow. 06/18: decrease ativan from 0.25/0.25/0.75 to 0.5 QHS. ECT #6 saturday, planning for DC next saturday. 06/19: DC ativan. ECT #6 tomorrow. planning to DC home next saturday. improved mood and anxiety, resolved psychotic Sx. 06/20: ECT went well, no issues. planning to DC next saturday. lakhwinder mtg held. continue current mgmt. 06/21: no changes Reason for continued inpatient stay Substantial Risk for: rapid decompensation Time Spent With Patient Time: Total time managing care of this patient today ____ minutes.
[2023-06-22 19:50] VITALS: BP 117/56; PULSE 75; RESP 16; TEMP 36.8; O2SAT 99
[2023-06-22] MEDS: traZODone HCL 50 MG TABLET PO (21:40)
[2023-06-22] MEDS: Cyclobenzaprine HCl 10 MG TABLET PO (21:41)
[2023-06-23 07:48] VITALS: BP 119/56; PULSE 69; RESP 14; TEMP 36.9; O2SAT 99
[2023-06-23] MEDS: buPROPion HCl XL 300 MG TAB.ER.24H PO (08:47)
[2023-06-23] MEDS: PARoxetine HCL 40 MG TABLET PO (08:47)
[2023-06-23] MEDS: Carbidopa/Levodopa 25/100 TABLET 1.5 TAB PO ×4 (08:47→21:46)
[2023-06-23] MEDS: Throat Lozenge, Medicated LOZENGE 1 LOZENGE MUCOUS MEM (08:47)
--- NOTE | 2023-06-23 11:41 | P.PNPSI_ITS ---
Subjective Subjective Date of Service: 06/23/23 Reason For Visit: crisis Interim History: Met with patient. Discussed with Nursing. In [place] eating lunch Overall doing very well. Plan discharge Saturday. Patient bright. No depression. Looking forward to discharge and maintenance ECT. Medication Compliance: Yes Side effects from medications: No Attending Groups: Intermittent Review of Systems Acute medical concerns: No Review of Systems Review of Systems Nothing acute Mental Status Exam Mental Status Exam Narrative: Pleasant. Engaged. Parkinsonism evident. Fair self-care. Bright in affect. Euthymic. No SI. No HI. No agitation. No psychosis. Insight and judgment fair Diagnostics Vital Signs (24Hr): Vital Signs - 24 hr 06/22/23 19:50 06/23/23 07:48 Temperature 98.3 F 98.4 F Pulse Rate 75 69 Respiratory Rate 16 14 Blood Pressure 117/56 L 119/56 L Pulse Oximetry 99 99 Oxygen Delivery Method Room Air Room Air BMI result Body Mass Index 22.5 Labs 05/30/23 16:55 06/01/23 07:27 Medications Medications Current Medications Acetaminophen (Acetaminophen 325 Mg Tablet) 975 mg PO Q6H PRN PRN Reason: Headache/Pain Mild Scale (1-3) Last Admin: 06/18/23 17:37 Dose: 975 mg Al Hydroxide/Mg Hydroxide (Magnesium Hydrox/Alum Hydrox 30 Ml Oral.Susp) 30 ml PO Q6H PRN PRN Reason: Heartburn/Nausea Last Admin: 06/17/23 12:41 Dose: 30 ml Albuterol Sulfate (Albuterol Sulfate 90 Mcg 8 Gm Inhaler) 2 puff INHALE Q6H PRN PRN Reason: shortness of breath or wheezing Benzocaine (Throat Lozenge, Medicated Lozenge) 1 lozenge MUCOUS MEM Q2H PRN PRN Reason: Sore Throat Last Admin: 06/15/23 21:19 Dose: 1 lozenge Benzocaine (Throat Lozenge, Medicated Lozenge) 1 lozenge MUCOUS MEM DAILY [facility] Last Admin: 06/23/23 08:47 Dose: 1 lozenge Benzocaine (Benzocaine 20 % Oral Gel 9 Gm Tube) 1 appl MUCOUS MEM QID PRN; Protocol PRN Reason: oral ulcerations Bupropion HCl (Bupropion Hcl Xl 300 Mg Tab.Er.24h) 300 mg PO DAILY EN[facility] Last Admin: 06/23/23 08:47 Dose: 300 mg Carbidopa/Levodopa (Carbidopa/Levodopa 25/100 Tablet) 1.5 tab PO QID [facility] Last Admin: 06/23/23 08:47 Dose: 1.5 tab Cyclobenzaprine HCl (Cyclobenzaprine Hcl 10 Mg Tablet) 10 mg PO TID PRN PRN Reason: muscle spasm Last Admin: 06/22/23 21:41 Dose: 10 mg Famotidine (Famotidine 20 Mg Tablet) 40 mg PO Q48H [facility] Last Admin: 06/22/23 08:14 Dose: 40 mg Hydroxyzine HCl (Hydroxyzine Hcl 25 Mg Tablet) 25 mg PO Q6H PRN PRN Reason: Anxiety Last Admin: 06/14/23 00:45 Dose: 25 mg Magnesium Hydroxide (Milk Of Magnesia 30 Ml Oral.Susp) 30 ml PO DAILY PRN PRN Reason: Constipation Paroxetine HCl (Paroxetine Hcl 40 Mg Tablet) 40 mg PO DAILY [facility] Last Admin: 06/23/23 08:47 Dose: 40 mg Trazodone HCl (Trazodone Hcl 50 Mg Tablet) 50 mg PO BEDTIME MRX1 PRN PRN Reason: Insomnia Last Admin: 06/22/23 21:40 Dose: 50 mg Allergies Allergies Allergy/AdvReac Type Severity Reaction Status Date / Time tomato [TOMATO] Allergy Severe ANAPHYLAXIS Verified 05/29/23 14:15 Sulfa (Sulfonamide Allergy Intermediate shaky, ROBLES Verified 05/29/23 14:15 Antibiotics) albuterol Allergy Unknown Unknown Verified 05/29/23 14:15 metoclopramide [Reglan] Allergy Unknown Unknown Verified 05/29/23 14:15 Assessment & Plan Assessment & Plan (1) MDD (major depressive disorder), recurrent episode, severe: Status: Acute Code(s): F33.2 - Major depressive disorder, recurrent severe without psychotic features (2) PTSD (post-traumatic stress disorder): Status: Acute Code(s): F43.10 - Post-traumatic stress disorder, unspecified (3) Parkinson's disease without dyskinesia: Status: Acute Code(s): G20.A1 - Parkinson's disease without dyskinesia, without mention of fluctuations Plan Patient is a 72 year old female with hx of MDD, PTSD and Parkinson's disease who self presented to ER d/t her outpatient psychiatrist suggesting pt should be evaluated secondary to confusion, mood, weight loss and ability to take care of herself. Plan: CV 15 minute safety checks continue home medications referral to outpatient therapist referral to [facility] Consult to cytology manager discharge planning 06/02/2023 Neuro consult question parkinsonian hallucinations versus psychotic symptoms with Parkinson's patient on Paxil Wellbutrin might consider ECT will get swallowing study neuro consult consider Seroquel 06/02: will consult with outpt neuro MD hanna. speech eval supports continuing present diet. continue current mgmt for now. 06/03: per consultation with Dr Hanna, her belief is that psychosis is most likely related to primary progression of Parkinson's Dz, yet she recommends decreasing sinemet 25/100 from 2 tabs BID to 1.5 tabs BID, which is done. otherwise continue current mgmt. discuss possibility of ECT with mino. 06/04: refer for ECT consultation as outpt provider supportive, pt interested. per jacques, no neuro objection. add flexeril PRN spasm, consults for medical risk stratification and ECT, PT consult for LBP/spasm for exercises and positioning. 06/05: some mild improvement in PMR. interested in ECT. seen by mino and medicine for risk stratification. provided written education re ECT. on klonopin 1 TID, will decrease to 0.75 TID today, with further tapering over w/. planning for ECT saturday. 06/06: DC klonopin and start ativan 1 mg TID in its place. hold HS dose on saturday kenny prior to ECT. PT recs noted. otherwise continue current mgmt. 06/07 keep same treatment. 06/08 keep same treatment. 06/09: ECT #1 completed uneventfully today. stable presentation. continue current mgmt. /: stable, no change to mgmt. ECT #2 tomorrow. 06/11: stable, no change in mgmt. ECT #2 completed without incident. T/C tapering off of benzos entirely, modifying anti-depressant regimen. 06/12: decrease ativan to 0.5/0.5/1 as of tomorrow. add cepacol lozenge for sore throat. ECT #3 tomorrow. 06/13: awaiting ECT for this afternoon. stable presentation. continue current mgmt. 06/14: no changes 06/15: no changes- ECT tomorrow 06/16: clearly but modestly improved from admission. faster and brighter. continue ativan taper and ECT. 06/17: stable, improved. psychotic Sx appears to have resolved. ECT #5 tomorrow. taper ativan again tomorrow. 06/18: decrease ativan from 0.25/0.25/0.75 to 0.5 QHS. ECT #6 saturday, planning for DC next saturday. 06/19: DC ativan. ECT #6 tomorrow. planning to DC home next saturday. improved mood and anxiety, resolved psychotic Sx. 06/20: ECT went well, no issues. planning to DC next saturday. ly mtg held. continue current mgmt. 06/21: no changes 06/22: no change Reason for continued inpatient stay Substantial Risk for: rapid decompensation Time Spent With Patient Time: Total time managing care of this patient today ____ minutes.
[2023-06-23 20:06] VITALS: BP 122/58; PULSE 79; RESP 16; TEMP 36.6; O2SAT 100
[2023-06-23] MEDS: Cyclobenzaprine HCl 10 MG TABLET PO (21:46)
[2023-06-23] MEDS: traZODone HCL 50 MG TABLET PO (21:46)
[2023-06-24 07:41] VITALS: BP 139/65; PULSE 73; RESP 14; TEMP 37; O2SAT 99
[2023-06-24] MEDS: PARoxetine HCL 40 MG TABLET PO (09:02)
[2023-06-24] MEDS: Carbidopa/Levodopa 25/100 TABLET 1.5 TAB PO ×4 (09:02→21:35)
[2023-06-24] MEDS: buPROPion HCl XL 300 MG TAB.ER.24H PO (09:02)
[2023-06-24] MEDS: Famotidine 20 MG TABLET 40 MG PO (09:02)
--- NOTE | 2023-06-24 10:11 | HO.PSYCHPN ---
Subjective Subjective Reason For Visit: crisis Diagnostics Vital Signs (24Hr): Vital Signs - 24 hr 06/23/23 20:06 06/24/23 07:41 Temperature 97.9 F 98.6 F Pulse Rate 79 73 Respiratory Rate 16 14 Blood Pressure 122/58 L 139/65 Pulse Oximetry 100 99 Oxygen Delivery Method Room Air Room Air BMI result Body Mass Index 22.5 Labs 05/30/23 16:55 06/01/23 07:27 Medications Medications Current Medications Acetaminophen (Acetaminophen 325 Mg Tablet) 975 mg PO Q6H PRN PRN Reason: Headache/Pain Mild Scale (1-3) Last Admin: 06/18/23 17:37 Dose: 975 mg Al Hydroxide/Mg Hydroxide (Magnesium Hydrox/Alum Hydrox 30 Ml Oral.Susp) 30 ml PO Q6H PRN PRN Reason: Heartburn/Nausea Last Admin: 06/17/23 12:41 Dose: 30 ml Albuterol Sulfate (Albuterol Sulfate 90 Mcg 8 Gm Inhaler) 2 puff INHALE Q6H PRN PRN Reason: shortness of breath or wheezing Benzocaine (Throat Lozenge, Medicated Lozenge) 1 lozenge MUCOUS MEM Q2H PRN PRN Reason: Sore Throat Last Admin: 06/15/23 21:19 Dose: 1 lozenge Benzocaine (Throat Lozenge, Medicated Lozenge) 1 lozenge MUCOUS MEM DAILY [facility] Last Admin: 06/23/23 08:47 Dose: 1 lozenge Benzocaine (Benzocaine 20 % Oral Gel 9 Gm Tube) 1 appl MUCOUS MEM QID PRN; Protocol PRN Reason: oral ulcerations Bupropion HCl (Bupropion Hcl Xl 300 Mg Tab.Er.24h) 300 mg PO DAILY [facility] Last Admin: 06/24/23 09:02 Dose: 300 mg Carbidopa/Levodopa (Carbidopa/Levodopa 25/100 Tablet) 1.5 tab PO QID [facility] Last Admin: 06/24/23 09:02 Dose: 1.5 tab Cyclobenzaprine HCl (Cyclobenzaprine Hcl 10 Mg Tablet) 10 mg PO TID PRN PRN Reason: muscle spasm Last Admin: 06/23/23 21:46 Dose: 10 mg Famotidine (Famotidine 20 Mg Tablet) 40 mg PO Q48H [facility] Last Admin: 06/24/23 09:02 Dose: 40 mg Hydroxyzine HCl (Hydroxyzine Hcl 25 Mg Tablet) 25 mg PO Q6H PRN PRN Reason: Anxiety Last Admin: 06/14/23 00:45 Dose: 25 mg Magnesium Hydroxide (Milk Of Magnesia 30 Ml Oral.Susp) 30 ml PO DAILY PRN PRN Reason: Constipation Paroxetine HCl (Paroxetine Hcl 40 Mg Tablet) 40 mg PO DAILY [facility] Last Admin: 06/24/23 09:02 Dose: 40 mg Trazodone HCl (Trazodone Hcl 50 Mg Tablet) 50 mg PO BEDTIME MRX1 PRN PRN Reason: Insomnia Last Admin: 06/23/23 21:46 Dose: 50 mg Allergies Allergies Allergy/AdvReac Type Severity Reaction Status Date / Time tomato [TOMATO] Allergy Severe ANAPHYLAXIS Verified 05/29/23 14:15 Sulfa (Sulfonamide Allergy Intermediate shaky, ROBLES Verified 05/29/23 14:15 Antibiotics) albuterol Allergy Unknown Unknown Verified 05/29/23 14:15 metoclopramide [Reglan] Allergy Unknown Unknown Verified 05/29/23 14:15 Assessment & Plan Assessment & Plan (1) MDD (major depressive disorder), recurrent episode, severe: Status: Acute Code(s): F33.2 - Major depressive disorder, recurrent severe without psychotic features (2) PTSD (post-traumatic stress disorder): Status: Acute Code(s): F43.10 - Post-traumatic stress disorder, unspecified (3) Parkinson's disease without dyskinesia: Status: Acute Code(s): G20.A1 - Parkinson's disease without dyskinesia, without mention of fluctuations Plan Patient is a 72 year old female with hx of MDD, PTSD and Parkinson's disease who self presented to ER d/t her outpatient psychiatrist suggesting pt should be evaluated secondary to confusion, mood, weight loss and ability to take care of herself. Plan: CV 15 minute safety checks continue home medications referral to outpatient therapist referral to [facility] Consult to body stylist discharge planning 06/02/2023 Neuro consult question parkinsonian hallucinations versus psychotic symptoms with Parkinson's patient on Paxil Wellbutrin might consider ECT will get swallowing study neuro consult consider Seroquel 06/02: will consult with outpt neuro MD hanna. speech eval supports continuing present diet. continue current mgmt for now. 06/03: per consultation with Dr Hanna, her belief is that psychosis is most likely related to primary progression of Parkinson's Dz, yet she recommends decreasing sinemet 25/100 from 2 tabs BID to 1.5 tabs BID, which is done. otherwise continue current mgmt. discuss possibility of ECT with mino. 06/04: refer for ECT consultation as outpt provider supportive, pt interested. per jacques, no neuro objection. add flexeril PRN spasm, consults for medical risk stratification and ECT, PT consult for LBP/spasm for exercises and positioning. 06/05: some mild improvement in PMR. interested in ECT. seen by mino and medicine for risk stratification. provided written education re ECT. on klonopin 1 TID, will decrease to 0.75 TID today, with further tapering over /. planning for ECT saturday. 06/06: DC klonopin and start ativan 1 mg TID in its place. hold HS dose on saturday kenny prior to ECT. PT recs noted. otherwise continue current mgmt. 06/07 keep same treatment. 06/08 keep same treatment. 06/09: ECT #1 completed uneventfully today. stable presentation. continue current mgmt. 06/10: stable, no change to mgmt. ECT #2 tomorrow. 06/11: stable, no change in mgmt. ECT #2 completed without incident. T/C tapering off of benzos entirely, modifying anti-depressant regimen. 06/12: decrease ativan to 0.5/0.5/1 as of tomorrow. add cepacol lozenge for sore throat. ECT #3 tomorrow. 06/13: awaiting ECT for this afternoon. stable presentation. continue current mgmt. 06/14: no changes 06/15: no changes- ECT tomorrow 06/16: clearly but modestly improved from admission. faster and brighter. continue ativan taper and ECT. 06/17: stable, improved. psychotic Sx appears to have resolved. ECT #5 tomorrow. taper ativan again tomorrow. 06/18: decrease ativan from 0.25/0.25/0.75 to 0.5 QHS. ECT #6 saturday, planning for DC next saturday. 06/19: DC ativan. ECT #6 tomorrow. planning to DC home next saturday. improved mood and anxiety, resolved psychotic Sx. 06/20: ECT went well, no issues. planning to DC next saturday. fmly mtg held. continue current mgmt. 06/21: no changes 06/22: no change Time Spent With Patient Time: Total time managing care of this patient today ____ minutes.
--- NOTE | 2023-06-24 11:09 | HO.PSYCHPN ---
Subjective Subjective Date of Service: 06/24/23 Reason For Visit: crisis Subjective Notes: Conditional Voluntary Interim History: Pt reports feeling less depressed. She denies SI/HI. She reports some difficulty swallowing- will order ST consult for swallowing. No behavioral concerns. Review of Systems Review of Systems Nothing acute Constitutional: Reports as per HPI Eyes: Reports as per HPI Reports as per HPI Cardiovascular: Reports as per HPI Respiratory: Reports as per HPI Gastrointestinal: Reports as per HPI Musculoskeletal: Reports as per HPI Skin/Breast: Reports as per HPI Reports as per HPI Psychiatric: Reports as per HPI Endocrine: Reports as per HPI Hematologic/Lymphatic: Reports as per HPI Allergic/Immunologic: Reports as per HPI Mental Status Exam Mental Status Exam Patient Appearance: Well Grooomed Patient Orientation: Person Level of Consciousness: Awake Patient Behavior: Guarded and Passive Mood Description: Withdrawn Affect Description: Constricted Patient Cognition Impaired: Yes Ability to Follow Directions: Good Speech Pattern: Clear Diagnostics Vital Signs (24Hr): Vital Signs - 24 hr 06/23/23 20:06 06/24/23 07:41 Temperature 97.9 F 98.6 F Pulse Rate 79 73 Respiratory Rate 16 14 Blood Pressure 122/58 L 139/65 Pulse Oximetry 100 99 Oxygen Delivery Method Room Air Room Air BMI result Body Mass Index 22.5 Labs 05/30/23 16:55 06/01/23 07:27 Medications Medications Current Medications Acetaminophen (Acetaminophen 325 Mg Tablet) 975 mg PO Q6H PRN PRN Reason: Headache/Pain Mild Scale (1-3) Last Admin: 06/18/23 17:37 Dose: 975 mg Al Hydroxide/Mg Hydroxide (Magnesium Hydrox/Alum Hydrox 30 Ml Oral.Susp) 30 ml PO Q6H PRN PRN Reason: Heartburn/Nausea Last Admin: 06/17/23 12:41 Dose: 30 ml Albuterol Sulfate (Albuterol Sulfate 90 Mcg 8 Gm Inhaler) 2 puff INHALE Q6H PRN PRN Reason: shortness of breath or wheezing Benzocaine (Throat Lozenge, Medicated Lozenge) 1 lozenge MUCOUS MEM Q2H PRN PRN Reason: Sore Throat Last Admin: 06/15/23 21:19 Dose: 1 lozenge Benzocaine (Throat Lozenge, Medicated Lozenge) 1 lozenge MUCOUS MEM DAILY [facility] Last Admin: 06/24/23 10:48 Dose: Not Given Benzocaine (Benzocaine 20 % Oral Gel 9 Gm Tube) 1 appl MUCOUS MEM QID PRN; Protocol PRN Reason: oral ulcerations Bupropion HCl (Bupropion Hcl Xl 300 Mg Tab.Er.24h) 300 mg PO DAILY [facility] Last Admin: 06/24/23 09:02 Dose: 300 mg Carbidopa/Levodopa (Carbidopa/Levodopa 25/100 Tablet) 1.5 tab PO QID [facility] Last Admin: 06/24/23 09:02 Dose: 1.5 tab Cyclobenzaprine HCl (Cyclobenzaprine Hcl 10 Mg Tablet) 10 mg PO TID PRN PRN Reason: muscle spasm Last Admin: 06/23/23 21:46 Dose: 10 mg Famotidine (Famotidine 20 Mg Tablet) 40 mg PO Q48H [facility] Last Admin: 06/24/23 09:02 Dose: 40 mg Hydroxyzine HCl (Hydroxyzine Hcl 25 Mg Tablet) 25 mg PO Q6H PRN PRN Reason: Anxiety Last Admin: 06/14/23 00:45 Dose: 25 mg Magnesium Hydroxide (Milk Of Magnesia 30 Ml Oral.Susp) 30 ml PO DAILY PRN PRN Reason: Constipation Paroxetine HCl (Paroxetine Hcl 40 Mg Tablet) 40 mg PO DAILY [facility] Last Admin: 06/24/23 09:02 Dose: 40 mg Trazodone HCl (Trazodone Hcl 50 Mg Tablet) 50 mg PO BEDTIME MRX1 PRN PRN Reason: Insomnia Last Admin: 06/23/23 21:46 Dose: 50 mg Allergies Allergies Allergy/AdvReac Type Severity Reaction Status Date / Time tomato [TOMATO] Allergy Severe ANAPHYLAXIS Verified 05/29/23 14:15 Sulfa (Sulfonamide Allergy Intermediate shaky, ROBLES Verified 05/29/23 14:15 Antibiotics) albuterol Allergy Unknown Unknown Verified 05/29/23 14:15 metoclopramide [Reglan] Allergy Unknown Unknown Verified 05/29/23 14:15 Assessment & Plan Assessment & Plan (1) MDD (major depressive disorder), recurrent episode, severe: Status: Acute Code(s): F33.2 - Major depressive disorder, recurrent severe without psychotic features (2) PTSD (post-traumatic stress disorder): Status: Acute Code(s): F43.10 - Post-traumatic stress disorder, unspecified (3) Parkinson's disease without dyskinesia: Status: Acute Code(s): G20.A1 - Parkinson's disease without dyskinesia, without mention of fluctuations Plan Patient is a 72 year old female with hx of MDD, PTSD and Parkinson's disease who self presented to ER d/t her outpatient psychiatrist suggesting pt should be evaluated secondary to confusion, mood, weight loss and ability to take care of herself. Plan: CV 15 minute safety checks continue home medications referral to outpatient therapist referral to [facility] Consult to client experience administrator discharge planning 06/02/2023 Neuro consult question parkinsonian hallucinations versus psychotic symptoms with Parkinson's patient on Paxil Wellbutrin might consider ECT will get swallowing study neuro consult consider Seroquel 06/02: will consult with outpt neuro MD hanna. speech eval supports continuing present diet. continue current mgmt for now. 06/03: per consultation with Dr Hanna, her belief is that psychosis is most likely related to primary progression of Parkinson's Dz, yet she recommends decreasing sinemet 25/100 from 2 tabs BID to 1.5 tabs BID, which is done. otherwise continue current mgmt. discuss possibility of ECT with mino. 06/04: refer for ECT consultation as outpt provider supportive, pt interested. per jacques, no neuro objection. add flexeril PRN spasm, consults for medical risk stratification and ECT, PT consult for LBP/spasm for exercises and positioning. 06/05: some mild improvement in PMR. interested in ECT. seen by mino and medicine for risk stratification. provided written education re ECT. on klonopin 1 TID, will decrease to 0.75 TID today, with further tapering over w/e. planning for ECT saturday. 06/06: DC klonopin and start ativan 1 mg TID in its place. hold HS dose on saturday kenny prior to ECT. PT recs noted. otherwise continue current mgmt. 06/07 keep same treatment. 06/08 keep same treatment. 06/09: ECT #1 completed uneventfully today. stable presentation. continue current mgmt. 06/10: stable, no change to mgmt. ECT #2 tomorrow. 06/11: stable, no change in mgmt. ECT #2 completed without incident. T/C tapering off of benzos entirely, modifying anti-depressant regimen. 06/12: decrease ativan to 0.5/0.5/1 as of tomorrow. add cepacol lozenge for sore throat. ECT #3 tomorrow. 06/13: awaiting ECT for this afternoon. stable presentation. continue current mgmt. 06/14: no changes 06/15: no changes- ECT tomorrow 06/16: clearly but modestly improved from admission. faster and brighter. continue ativan taper and ECT. 06/17: stable, improved. psychotic Sx appears to have resolved. ECT #5 tomorrow. taper ativan again tomorrow. 06/18: decrease ativan from 0.25/0.25/0.75 to 0.5 QHS. ECT #6 saturday, planning for DC next saturday. 06/19: DC ativan. ECT #6 tomorrow. planning to DC home next saturday. improved mood and anxiety, resolved psychotic Sx. 06/20: ECT went well, no issues. planning to DC next saturday. fmly mtg held. continue current mgmt. 06/21: no changes 06/22: no change 06/23 continue tx. Reason for continued inpatient stay Substantial Risk for: inability to function Time Spent With Patient Time: Total time managing care of this patient today ____ minutes.
[2023-06-24 19:20] VITALS: BP 107/67; PULSE 95; RESP 16; TEMP 36.8; O2SAT 99
[2023-06-24] MEDS: traZODone HCL 50 MG TABLET PO (21:37)
[2023-06-25] MEDS: buPROPion HCl XL 300 MG TAB.ER.24H PO (07:58)
[2023-06-25] MEDS: Carbidopa/Levodopa 25/100 TABLET 1.5 TAB PO (07:58)
[2023-06-25] MEDS: PARoxetine HCL 40 MG TABLET PO (07:58)
[2023-06-25] MEDS: Throat Lozenge, Medicated LOZENGE 1 LOZENGE MUCOUS MEM (10:19)
--- NOTE | 2023-06-25 10:25 | MHC.SL.SWA ---
Speech Pathologist Impression: Risk of Aspiration Due to: Neurological Condition Dysphasia Diet Status: Liquid Consistency and Strategies for Safe Swallow: Liquid Intake Recommendation: Thin Liquid Intake Strategies: Small Sips Double Swallow Solid Food Consistency: Dietary Recommendations: Regular Oral Medication Intake: Whole with Liquid Please contact the pharmacy regarding appropriate crushable or liquid drug formulations that are available whenever modified delivery is recommended. Compensatory Strategies and Precautions to be Taken for Safe Swallow: Sitting Upright (90 deg) Double Swallow Small Bites and Sips Alternate Liquids/Solids Rate of Ingestion Change Avoid Specific Foods Supervision While Eating and Drinking for Safe Swallow: Intermittent Supervision Foods to Avoid: Hard, dry, or sticky foods Swallowing Recommended Treatments: Compens. Strategy Educat. Recommendation for Speech: NA:Typical Evaluation Discharged with Instructions for Home Use Comment: DOMESTIC VIOLENCE COUNSELOR counselled patient on strategies for improved oral and pharyngeal clearance: take small bites, chew food well, dry swallow between bites, liquid wash. Recommend she follow-up with her GI after discharge. This can be addressed at her follow-up PCP appointment. Frequency/Duration: No Speech Therapy intervention indicated at this time. Pin Sorter And Bagger Clinican/Clinical Fellow: No Supervisory Statement: I have reviewed and agree with the student/clinical fellow's documentation: N/A Speech Language Pathologist: Lazaro Darby M.A., CCC-DOMESTIC VIOLENCE COUNSELOR
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
== END 2023-06-25 11:59 | disposition home health service (06) | DRG 885 ==
LOC: HO.ED 19:06 → HO.PADLT16 05-31 11:39
PROVIDERS: Emergency Medicine; Physician Assistant; Psychiatry & Neurology Psychiatry; Admitting Provider Registered Nurse; Emergency Provider Emergency Medicine; PCP Internal Medicine; Visit Provider Psychiatry & Neurology Psychiatry
PROC: (CPT 90870; principal; 2023-06-10 07:00)
PROC: GZB4ZZZ Other Electroconvulsive Therapy (ICD-10-PCS; CPT 90870; principal; 2023-06-12 15:10)
DX: F33.3 Major depressive disorder, recurrent, severe with psychotic symptoms (principal); G20.A1 Parkinson's disease without dyskinesia, without mention of fluctuations; F43.10 Post-traumatic stress disorder, unspecified; J44.9 Chronic obstructive pulmonary disease, unspecified; F06.70 Mild neurocognitive disorder due to known physiological condition without behavioral disturbance; Z91.410 Personal history of adult physical and sexual abuse; Z20.822 Contact with and (suspected) exposure to COVID-19; Z79.899 Other long term (current) drug therapy
CPT/HCPCS: 36415; 80053; 80061; 80143; 80179; 80307; 81003; 83735; 85025; 87635; 90870; 92610; 93005; 97161; 99285; J0330; J1596; J1805; J1885; J2405; J2704; J2795; J7120; S9485

== ENCOUNTER → 2023-05-31 08:47 | Outpatient (BNV) | payer MEDICARE, MEDICAID, SELFPAY | PROVIDERS: Admitting Provider Registered Nurse; Emergency Provider Emergency Medicine; PCP Internal Medicine; Visit Provider Internal Medicine | DX: F32.2 Major depressive disorder, single episode, severe without psychotic features (principal); F43.11 Post-traumatic stress disorder, acute; G20.A1 Parkinson's disease without dyskinesia, without mention of fluctuations | CPT/HCPCS: 93010 ==

== ENCOUNTER → 2023-05-31 10:36 | Outpatient (BNV) | payer MEDICARE, MEDICAID, SELFPAY | PROVIDERS: Admitting Provider Registered Nurse; Emergency Provider Emergency Medicine; PCP Internal Medicine; Visit Provider Psychiatry & Neurology Psychiatry | DX: F32.3 Major depressive disorder, single episode, severe with psychotic features (principal); G20.A1 Parkinson's disease without dyskinesia, without mention of fluctuations; F02.82 Dementia in other diseases classified elsewhere, unspecified severity, with psychotic disturbance; F43.11 Post-traumatic stress disorder, acute | CPT/HCPCS: 90870; 99232; 99238 ==

== ENCOUNTER → 2023-05-31 10:36 | Outpatient (BNV) | payer MEDICARE, MEDICAID, SELFPAY | PROVIDERS: Admitting Provider Registered Nurse; Emergency Provider Emergency Medicine; PCP Internal Medicine; Visit Provider Registered Nurse | DX: F33.2 Major depressive disorder, recurrent severe without psychotic features (principal); F43.11 Post-traumatic stress disorder, acute; G20.A1 Parkinson's disease without dyskinesia, without mention of fluctuations | CPT/HCPCS: 90792; 90870; 99231; 99232 ==

== ENCOUNTER 2023-07-03 05:50 | Day surgery (SDC) | payer MEDICARE, MEDICAID, SELFPAY ==
[2023-07-03 06:37] VITALS: BP 120/59; PULSE 68; RESP 16; TEMP 36.6; O2SAT 97; BMI 18.6
--- NOTE | 2023-07-03 07:58 | MHC.SHP ---
Pre-Procedural Eval Section A - 24 Hr Update-Section A only Date of Service: 07/03/23 Section B - Complete if H&P > 30 days Chief Complaint: Major depressive disorder, recurrent, severe with Details of Present Illness: recent psych d/c doing quite well tolerated ect well Relevant Social History: None Allergies: Allergies Allergy/AdvReac Type Severity Reaction Status Date / Time tomato [TOMATO] Allergy Severe ANAPHYLAXIS Verified 05/29/23 14:15 Sulfa (Sulfonamide Allergy Intermediate palomocassandraTRAVIS Verified 05/29/23 14:15 Antibiotics) albuterol Allergy Unknown Unknown Verified 05/29/23 14:15 metoclopramide [Reglan] Allergy Unknown Unknown Verified 05/29/23 14:15 Review of Systems Sugical H&P ROS: Negative: Cardiovascular, Respiratory and Psychiatric (much improved) and Yes, Specify: Neurological (parkinsons ) Exam Surgical H&P Exam: Normal: Heart and Normal: Lungs Exam Comment: no confusion alert no hallucinations Plan I have reviewed the history and physical and performed a pertinent physical examination on my patient. No changes have occurred unless specified. Time Spent With Patient Time: Total time managing care of this patient today ____ minutes.
--- NOTE | 2023-07-03 08:00 | HO.ECTPROC ---
ECT Procedure Note Diagnosis/Treatment Date of Service: 07/08/23 Diagnosis: Major Depressive Disorder Previous ECT Date: 06/17/23 Current Treatment Number: 7 Treatment: Series Interval Clinical Notes: the pt has been feeling well much improved no c/o side effects Time: Total time managing care of this patient today 30____ minutes. ECT Settings Device: THYMATRON DGx Electrode Placement: Right Unilateral Program/Pulse Width: 0.25 Energy Percent: 100 Seizure Duration By EEG (in seconds): 59 Medications Administration General Anesthetic: Etomidate (12) Muscle Relaxant: Succinylcholine (80) Ancillary Medications Miscillaneous Medications: Propofol (20) Airway Management Airway Management: Bag Mask Ventilation Treatment Recommendations No Changes Recommended: No change Notes: No c/o side effects continue maintenance tx Pt Tolerated Procedure w/o Issue: Yes
[2023-07-03 08:18] VITALS: BP 168/72; PULSE 70; RESP 16; TEMP 36.2; O2SAT 97
[2023-07-03 08:23] VITALS: BP 125/60; PULSE 74; RESP 14; O2SAT 98
[2023-07-03 08:28] VITALS: BP 142/70; PULSE 86; RESP 18; O2SAT 97
--- NOTE | 2023-07-03 08:32 | HO.ANESPROP2 ---
[facility], [facility] Active Problems Active Problems: All Active Problems Major neurocognitive disorder due to another medical condition, with psychotic disturbance (Acute) Major depression with psychotic features (Acute) Depression (Acute) Parkinson's disease without dyskinesia (Acute) Diarrhea (Acute) Viral syndrome (Acute) Nausea & vomiting (Acute) Vitamin D deficiency (Acute) Environmental allergies (Acute) Contusion of foot, right (Acute) Sleep disorder (Acute) Anemia (Acute) COPD (chronic obstructive pulmonary disease) (Acute) CKD (chronic kidney disease), stage III (Acute) Family history of breast cancer in mother (Acute) PTSD (post-traumatic stress disorder) (Acute) Vitamin D deficiency (Acute) Hyperparathyroidism (Acute) Family history of malignant neoplasm of endometrium (Acute) Multinodular thyroid (Acute) Parkinsons disease (Acute) Depression (Acute) Hyperlipemia (Acute) Back pain (Acute) Past Medical History Medical History Parkinson's disease without dyskinesia Sleep disorder Anemia CKD (chronic kidney disease), stage III Family history of breast cancer in mother Uterine cancer PTSD (post-traumatic stress disorder) Vitamin D deficiency Hyperparathyroidism Family history of malignant neoplasm of endometrium Polycystic kidney disease Multinodular thyroid Parkinsons disease Depression Hyperlipemia Back pain Thyroid nodule Tremor Sciatica of right side Sciatica of left side GERD (gastroesophageal reflux disease) Stage 3 chronic kidney disease Chronic fatigue IBS (irritable bowel syndrome) Fibromyalgia COPD (chronic obstructive pulmonary disease) Patient : No Family History Family History Father COPD (chronic obstructive pulmonary disease) Mother Arteriosclerosis Breast cancer, Onset Age: 80 Sister Diabetes mellitus Breast cancer, Onset Age: 70 Brother Bone cancer History of pituitary cancer Family history of problems with anesthesia: No Surgical History Surgical History Hx laparoscopic cholecystectomy History of esophagogastroduodenoscopy (EGD) H/O colonoscopy History of left breast biopsy Hx of cholecystectomy History of sinus surgery History of carpal tunnel syndrome History of total abdominal hysterectomy History of Problems with Anesthesia: No Social History Social History Household Members: None Housing: House Do you presently have visiting nurse or other home services: No Unable to assess alcohol history related to: Refusing to respond Alcohol intake: never Patient Tobacco Use Status: Never used Tobacco e-Cigarette/Vaping Use: Never Used Advance Directives: No Advance Directives Information Provided: Yes service: No Current occupational status: employed Sexual orientation: Straight/Heterosexual Meds Allergies Allergy/AdvReac Type Severity Reaction Status Date / Time tomato [TOMATO] Allergy Severe ANAPHYLAXIS Verified 05/29/23 14:15 Sulfa (Sulfonamide Allergy Intermediate susan, ROBLES Verified 05/29/23 14:15 Antibiotics) albuterol Allergy Unknown Unknown Verified 05/29/23 14:15 metoclopramide [Reglan] Allergy Unknown Unknown Verified 05/29/23 14:15 Home Medications ?Medication ?Instructions ?Recorded ?Confirmed ?Last Taken ?Type bupropion HCl 300 mg 24 hr tablet, 300 mg PO QAM 02/22/20 05/30/23 05/30/23 08:00 History extended release paroxetine HCl 40 mg tablet 40 mg PO DAILY 04/13/23 05/30/23 05/30/23 08:00 History famotidine 40 mg tablet (Pepcid) 40 mg PO DAILY 05/30/23 05/30/23 05/30/23 08:00 History Exam Height,Weight and Vital Signs: Height 5 ft 6 in Weight 52.163 kg Last Vital Signs Temp 97.1 F 07/03/23 08:18 Pulse 86 07/03/23 08:28 Resp 18 07/03/23 08:28 BP 142/70 H 07/03/23 08:28 Pulse Ox 97 07/03/23 08:28 O2 Del Method Nasal Cannula with Capnography 07/03/23 08:28 O2 Flow Rate 2 07/03/23 08:28 Airway Mallampati Class: II TM Dist: >3cm Neck ROM: Full Heart: RRR Lungs: CTA Assessment and Plan Assessment Anesthesia Assessment: Anesthesia Plan Discussed Final Anesthetic Review Family History of Problems with Anesthesia: No History of Problems with Anesthesia: No NPO: Yes Final Preanesthetic Review: Meds/Allgs Chart Reviewed, Consent Obtained/Reviewed and Anes Risks/Benef Reviewed Patient Risk: Low Procedure Risk: Low Anesthetic Plan Anesthetic Plan: GA Disposition: Standard PACU
[2023-07-03 08:33] VITALS: BP 127/55; PULSE 93; RESP 18; O2SAT 99
--- NOTE | 2023-07-03 08:34 | HO.POSTANES ---
Post Anesthesia Evaluation Post Anesthesia Evaluation Date of Service: 07/03/23 Vital Signs: Vital Signs Temp Pulse Resp BP Pulse Ox O2 Del Method O2 Flow Rate 07/03/23 08:28 86 18 142/70 H 97 Nasal Cannula with ETCO2 2 07/03/23 08:23 74 14 125/60 98 Nasal Cannula with ETCO2 2 07/03/23 08:18 97.1 F 70 16 168/72 H 97 Nasal Cannula with ETCO2 2 07/03/23 06:37 97.9 F 68 16 120/59 L 97 Room Air Anesthesia: General Mental Status: Awake Pain Control: Satisfactory Nausea/Vomiting: None Hydration: Adequate Anesthesia-Related Issues: No Anes. Related Issues
[2023-07-03 08:55] VITALS: BP 144/65; PULSE 73; RESP 18; TEMP 36.2; O2SAT 97
== END 2023-07-03 09:18 | disposition home or self-care (01) ==
PROVIDERS: PCP Internal Medicine; Visit Provider Psychiatry & Neurology Psychiatry
PROC: (CPT 90870; principal; 2023-07-03 07:30)
DX: F33.2 Major depressive disorder, recurrent severe without psychotic features (principal); F43.10 Post-traumatic stress disorder, unspecified; G20.A1 Parkinson's disease without dyskinesia, without mention of fluctuations; N18.30 Chronic kidney disease, stage 3 unspecified; D64.9 Anemia, unspecified; Q61.3 Polycystic kidney, unspecified; J44.9 Chronic obstructive pulmonary disease, unspecified; M79.7 Fibromyalgia; Z85.42 Personal history of malignant neoplasm of other parts of uterus; Z90.710 Acquired absence of both cervix and uterus; Z98.890 Other specified postprocedural states; Z79.899 Other long term (current) drug therapy; Z88.2 Allergy status to sulfonamides; Z88.8 Allergy status to other drugs, medicaments and biological substances
CPT/HCPCS: 90870; J0330

== ENCOUNTER → 2023-07-03 05:50 | Outpatient (BNV) | payer MEDICARE, MEDICAID, SELFPAY | PROVIDERS: PCP Internal Medicine; Visit Provider Psychiatry & Neurology Psychiatry | DX: F33.3 Major depressive disorder, recurrent, severe with psychotic symptoms (principal) | CPT/HCPCS: 90870 ==

== ENCOUNTER 2023-07-12 09:00 | Outpatient (AMB) | payer MEDICARE, MEDICAID, SELFPAY ==
--- NOTE | 2023-07-12 09:02 | MHC.PC.OV ---
Vital Signs 07/12/23 09:05 Height 5 ft 6 in Weight 117 lb BMI 18.9 BP 126/72 Blood Pressure Location Lt brachial Position Sitting Pulse 106 H Pulse Source Pulse Oximeter Pulse Oximetry (%) 98 Oxygen Delivery Method Room Air Intake Visit Reasons: clearance for ECT Dr. Shearer on 07/16 Intake Note: Patien here for PreOp clearance. EKG and Labs have been done already. Allergies tomato [TOMATO] Allergy (Severe, Verified 07/12/23 09:29) ANAPHYLAXIS Sulfa (Sulfonamide Antibiotics) Allergy (Intermediate, Verified 07/12/23 09:29) TRAVIS davis albuterol Allergy (Unknown, Verified 07/12/23 09:29) Unknown metoclopramide [Reglan] Allergy (Unknown, Verified 07/12/23 09:29) Unknown quetiapine [From Seroquel] Adverse Reaction (Severe, Verified 07/12/23 09:29) Hallucinations Medication List - Last Reconciled 07/12/23 by Diamond Montgomery MD albuterol sulfate 90 mcg/actuation (ProAir HFA) 2 puffs inhalation Q6H PRN benzocaine-menthol 15-3.6 mg (Sore Throat (benzocaine with menthol)) 1 isidoro mucous membrane DAILY 30 days bupropion HCl XL 300 mg PO QAM carbidopa-levodopa 25-100 mg 1.5 tabs PO QID 30 days famotidine (Pepcid) 40 mg PO DAILY paroxetine HCl 40 mg PO DAILY trazodone 25 - 50 mg (0.5 - 1 x 50 mg) PO BEDTIME MRX1 PRN 30 days Tobacco use date assessed: 07/12/23 Fall risk assessment: 2 + Falls in past year Last assessed Fall Risk: 07/12/23 Dental Screening Dental Screen Date: 07/12/23 Did you have a dental visit in the last 12 months?: No Did you have a dental problem in the last 6 months where you did not have access to dental care?: No Was dental information given to patient?: Patient has dentist HPI clearance for ECT Dr. Shearer on 07/16 HPI Details 72-year-old lady with major depression with psychotic features, history of Parkinson's disease, COPD, chronic kidney disease and hyperlipidemia, here today needing medical clearance prior to getting ECT treatment. Dr. Shearer's office requesting clearance for ECT, stated that patient received ECT while inpatient in May. Stated patient had an EKG and blood work while inpatient. She has been feeling well with no complaints at present time [facility] Medical History (Updated 07/14/23 @ 23:33 by Diamond Montgomery MD) History of uterine cancer Parkinson's disease without dyskinesia Sleep disorder Anemia CKD (chronic kidney disease), stage III PTSD (post-traumatic stress disorder) Hyperparathyroidism Family history of malignant neoplasm of endometrium Polycystic kidney disease Multinodular thyroid Back pain GERD (gastroesophageal reflux disease) Chronic fatigue IBS (irritable bowel syndrome) Fibromyalgia COPD (chronic obstructive pulmonary disease) Surgical History Hx laparoscopic cholecystectomy History of esophagogastroduodenoscopy (EGD) H/O colonoscopy History of left breast biopsy Hx of cholecystectomy History of sinus surgery History of carpal tunnel syndrome History of total abdominal hysterectomy Family History Father COPD (chronic obstructive pulmonary disease) Mother Arteriosclerosis Breast cancer, Onset Age: 80 Sister Diabetes mellitus Breast cancer, Onset Age: 70 Brother Bone cancer History of pituitary cancer Social History Household Members: None Housing: House Do you presently have visiting nurse or other home services: No Unable to assess alcohol history related to: Refusing to respond Alcohol intake: never Patient Tobacco Use Status: Never used Tobacco e-Cigarette/Vaping Use: Never Used service: No Current occupational status: employed Sexual orientation: Straight/Heterosexual Cognitive needs: No Hearing needs: No Vision needs: Yes Questionnaire PHQ-9 Over the last 2 weeks, how often have you been bothered by any of the following problems? 1. Little interest or pleasure in doing things: several days 2. Feeling down, depressed, or hopeless: not at all 3. Trouble falling or staying asleep, or sleeping too much: several days 4. Feeling tired or having little energy: several days 5. Poor appetite or overeating: several days 6. Feeling bad about yourself - or that you are a failure or have let yourself or your family down: not at all 7. Trouble concentrating on things, such as reading the newspaper or watching television: several days 8. Moving or speaking so slowly that other people could have noticed. Or the opposite - being so fidgety or restless that you have been moving around a lot more than usual: not at all 9. Thoughts that you would be better off or of hurting yourself in some way: not at all Total score: 5 Depression Screening Interpretation: Positive (Followed by psychiatry, receiving ECT) Depression Screening Follow-up: Existing condition, In treatment and Community Mental Health Worker F/U Depression Screening Done: Yes 76429 - PHQ-9 Billing: Yes Source: Developed by Drs. Jagjit Osman, Gracia Kowalski, Emilio Wong and colleagues, with an educational luisa from [employer]. Thrive Questionnaire Date Thrive assessed: 07/12/23 I am a: Patient What is your living situation today?: I have a steady place to live Within the past 12 months, did the food you bought not last and you didn't have the money to get more?: Often true Within the past 12 months, did you worry whether your food would run out before you got money to buy more?: Sometimes True Do you have trouble paying for medicines?: No Do you have trouble getting transportation to medical appointments?: Yes Do you have trouble paying your heating and electricity bill?: Yes Do you have trouble taking care of your child, family member or friend?: No Do you have trouble with day-to-day activities such as bathing, preparing meals, shopping, managing finances, etc.?: Yes Are you currently unemployed and looking for a job?: No Are you interested in more education?: No Currently or been in a relationship where the following occur: I choose not to answer this question THRIVE Score: 4 AUDIT C Alcohol Use Questionnaire (AUDIT-C) 1. How often do you have a drink containing alcohol?: Never 3. How often do you have six or more drinks on one occasion?: Never Total Score: 0 Score Reviewed/Action Taken: No CHEPE-7 AMB Questionnaire CHEPE-7 Date CHEPE - 7 assessed: 07/12/23 Feeling nervous, anxious, or on edge: 1 = Several days Not being able to stop or control worryin = Several days Worrying too much about different things: 1 = Several days Trouble relaxin = Several days Being so restless that it is hard to sit still: 0 = Not at all Becoming easily annoyed or irritable: 0 = Not at all Feeling afraid as if something awful might happen: 0 = Not at all Total CHEPE-7 score (0-4 normal; 5-9 mild; 10-14 moderate; 15-21 severe): 4 Source: Developed by Drs. Jagjit Osman, Gracia Kowalski, Emilio Wong and colleagues, with an educational luisa from [employer]. CHEPE-7 Assessment Billing CHEPE-7 Assessment Tool: CHEPE-7 Assessment 71619 Review of Systems Const Denies excessive sweating, Denies fatigue and Denies headache(s) Eyes Denies change in vision ENT Denies change in voice, Denies headache(s) and Denies hoarseness Card Denies chest pain, Denies irregular heart rhythm, Denies dyspnea and Reports other Resp Denies cough and Denies dyspnea GI Denies abdominal pain, Denies change in bowel habits, Denies diarrhea and Denies nausea Reports no additional complaints Musc Denies myalgias, Denies muscle cramps, Denies numbness and Denies tingling Skin/Breast Denies hirsutism and Denies alopecia Neuro Denies headache(s), Denies numbness and Denies tingling Psych Reports as per HPI Endo Denies cold intolerance, Denies excessive sweating, Denies fatigue and Denies heat intolerance Andrés/Lymph Denies easy bruising Aller/Immun Reports no additional complaints Physical exam (Primary Care) Vital Signs: Last Vital Signs Pulse 106 H 07/12/23 09:05 BP 126/72 07/12/23 09:05 Pulse Ox 98 07/12/23 09:05 Oxygen Delivery Method Room Air 07/12/23 09:05 BMI result Body Mass Index 18.9 Tobacco/Smoking Status: Tobacco use Status Tobacco use date assessed 07/12/23 07/12/23 09:10 Patient Tobacco Use Status Never used Tobacco 07/12/23 09:10 e-Cigarette/Vaping Use Never Used 07/12/23 09:10 PHQ-9: PHQ-9 Score PHQ-9: Total score 5 07/12/23 09:58 Depression Screening Interpretation: Positive (Followed by psychiatry, receiving ECT) Depression Screening Follow-up: Existing condition, In treatment and Community Mental Health Worker F/U Thrive Assessment: Date of Thrive Assessment Date Thrive assessed 07/12/23 07/12/23 09:58 Currently or been in a relationship where the following occur: I choose not to answer this question Const General: comfortable and no acute distress Orientation/consciousness: patient oriented x3 HENMT Mouth: Normal oral and palatal mucosa present, oropharynx normal and moist mucous membranes Eyes General: appearance normal, both eyes and all related structures Conjunctivae: conjunctivae normal Pupils: Equal, round and reactive pupils present EOM: EOMs intact bilaterally Neck Neck: Yes full ROM, Yes no lymphadenopathy and Yes supple Resp Effort & Inspection: normal respiratory effort and able to speak in complete sentences Auscultation: clear to auscultation bilaterally Cardio Rate: regular rate Rhythm: regular rhythm Heart sounds: S1 normal heart sound present and S2 normal heart sound present GI Inspection: Yes normal to inspection Palpation (GI): Soft to palpation, nontender and no masses Auscultation: normal bowel sounds Skin General skin exam: no rashes or lesions noted Neuro General: patient oriented x3, gait normal, tone normal, moves all extremities, Normal light touch and pain sensation and no focal motor deficits Cranial nerves: Yes Equal, round and reactive pupils present Cognition (Neuro): normal cognition Gait exam (Neuro): Normal gait present Motor exam (neuro): 5/5 motor strength present throughout Immunizations pneumoc 20-ani conj-dip cr(PF) 0.5 mL IM syringe Performing Provider: Diamond Montgomery MD Performing Location: [facility] Administered by: DIO Jean on 07/12/23 09:50 Dose Route Admin Location Dispensed Lot Number Expiration Date NDC Display Department Manager 0.5 mL IM Left Deltoid 0.5 mL [id number] 05/09/24 8713-7331-29 [employer] VIS Given Date VIS Provided VIS Publication Date 07/12/23 Single Vaccine 21 Eligibility Eligibility Date Funding Source Not VFC Eligible 07/12/23 Private Results Reviewed Results Reviewed: Re05/31/23 Status: DIS IN Location: [id number] [id number] Disch: 06/25/23 SPEC : [id number] LOLA: 05/30/23-1654 STATUS: COMP REQ : [id number] RECD: 05/30/23-[address]: Harvinder Bojorquez COMP: 05/30/23-1508 ENTERED: 05/30/23-[address]: Cheyanne Dozier MD ORDERED: CBC Auto Diff Test Result Flag Reference WBC 4.4 L 4.8-10.8 X10*3/uL RBC 3.63 L 4.20-5.50 X10*6/uL HGB 11.8 L 12.0-16.0 g/dl HCT 35.0 L 37.0-47.0 % MCV 96.4 80.0-98.0 fL MCH 32.5 27.0-33.0 pg MCHC 33.7 31.0-35.0 g/dl RDW 11.9 11.0-16.0 % PLT 261 160-400 X10*3/uL MPV 9.2 L 9.4-12.3 fL Neut Pct Auto 65.0 45-73 % ImGran Pct Auto 0.2 0.0-0.4 % Lymp Pct Auto 23.0 20-40 % Ada Pct Auto 7.9 2-11 % Eos Pct Auto 3.4 0-4 % Baso Pct Auto 0.5 0-2 % NRBC Pct Auto 0.0 0.0-0.2 /100WBC ANC Neut Abs # 2.9 2.0-8.3 x10*3/uL ImGran Abs Auto 0.01 0.00-0.03 X10*3/uL Lymph Abs Auto 1.0 L 1.2-4.9 X10*3/uL Ada Abs Auto 0.4 0.1-1.2 X10*3/uL Eos Abs Auto 0.2 0.0-0.4 X10*3/uL Baso Abs Auto 0.0 0.0-0.2 X10*3/uL NRBC Abs Auto 0.000 0.0-0.012 X10*3/uL Name: Lien Jerry Age/Sex: 72/F : 1950 Unit#: [id number] Attend Dr: Shay Burris MD Re05/31/23 Status: DIS IN [facility]-2 Disch: 06/25/23 SPEC : [id number] LOLA: 06/01/23 STATUS: COMP REQ : [id number] RECD: 06/01/[address] [facility] [address]: Michelle Rodriguez NP COMP: 06/01/23 ENTERED: 06/01/23-2 [facility] [address]: Diamond Montgomery MD,Shay RASMUSSEN ORDERED: CMP Fast, Lipid Panel Test Result Flag Reference Sodium 143 135-145 mmol/L Potassium 4.1 3.3-5.1 mmol/L CL 106 96-108 mmol/L CO2 31 H 22-29 mmol/L Gap 10 L 12-20 BUN 20 H 9-16 mg/dL Creat 1.19 0.5-1.4 mg/dL Estimated CrCl 32.0 Provided height and weight: 154.94 cm, 46.811 kg. eGFR (calculated from the MDRD study equation) and eCrCl (calculated from the Cockcroft-Gault equation) are based on different parameters and may not yield comparable results. If eCrCl result is absurd, please check patient's height/weight. EGFR 45 NOTE: For -[place] individuals, multiply the result by 1.210. Chronic Kidney Disease: Estimated GFR < 60 mL/min/1.73m2 Severe Kidney Disease: Estimated GFR < 15 mL/min/1.73m2 FBS 96 60-99 mg/dL CA 9.9 8.4-10.2 mg/dL Total Bili 0.3 0.0-1.0 mg/dL AST (GOT) 10 5-31 U/L ALT (GPT) < 5 0-31 U/L Protein, Total 5.7 L 6.5-8.0 g/dL Alb 3.5 3.5-5.0 g/dL Triglyceride 48 <150 mg/dL Desirable Triglyceride: less than 150 mg/dL Borderline High Triglyceride 150-199 mg/dL High Triglyceride: 200-499 mg/dL Very High Triglyceride: greater than or equal to 5OO mg/dL Cholesterol 153 <200 mg/dL Desirable Cholesterol: less than 200 mg/dL Borderline High Cholesterol: 200-239 mg/dL High Cholesterol: greater than 239 mg/dL LDL Calculated 87 <100 mg/dL Desirable LDL: less than 100 mg/dL Near Optimal/Above Optimal LDL: 110-129 mg/dL Borderline High LDL: 130-159 mg/dL High LDL: 160-189 mg/dL Very High LDL: greater than or equal to 190 mg/dL HDL 57 >40 mg/dL Desirable HDL: greater than 40 mg/dL Note: This HDL assay may give artificially low results in patients with liver disease. Alk Phos 51 39-117 U/L Ordering Physician: Lyndsay De La Fuente DO Date of Service: 05/31/23 Procedure(s): ECG 12 lead EKG Accession Number(s): [id number] cc: Lyndsay De La Fuente DO~ Test Reason : CHECK QT Blood Pressure : / mmHG Vent. Rate : 072 BPM Atrial Rate : 072 BPM P-R Int : 124 ms QRS Dur : 080 ms QT Int : 402 ms P-R-T Axes : 074 043 045 degrees QTc Int : 440 ms Normal sinus rhythm with sinus arrhythmia Normal ECG When compared with ECG of 12-APR-2023 18:14, No significant change was found Assessment and Plan Assessment & Plan (1) Preoperative examination: Code(s): Z01.818 - Encounter for other preprocedural examination Plan: 72-year-old lady here today for preoperative exam prior to ECT for treatment of depression with psychotic features, requested by Dr. Shearer. Preop exam unremarkable, reviewed recent fasting labs and EKG which were unremarkable in the latter showing normal sinus rhythm with sinus arrhythmia . She has a low cardiac risk index for proposed procedure (2) Major depression with psychotic features: Code(s): F32.3 - Major depressive disorder, single episode, severe with psychotic features Plan: Currently followed by psychiatry and scheduled for ECT (3) Parkinson's disease without dyskinesia: Code(s): G20.A1 - Parkinson's disease without dyskinesia, without mention of fluctuations Plan: Currently on carbidopa-levodopa (4) Anemia: Code(s): D64.9 - Anemia, unspecified Qualifiers: Anemia type: due to chronic kidney disease Chronic kidney disease stage: stage 3 (moderate) Chronic kidney disease stage 3 subtype: unspecified whether 3a or 3b Qualified Code(s): N18.30 - Chronic kidney disease, stage 3 unspecified; D63.1 - Anemia in chronic kidney disease Plan: Likely Anemia of chronic kidney disease (5) COPD (chronic obstructive pulmonary disease): Code(s): J44.9 - Chronic obstructive pulmonary disease, unspecified Plan: Currently only using albuterol inhaler as needed for episodes of bronchospasm and wheezing (6) CKD (chronic kidney disease), stage III: Comment: Dr Power Code(s): N18.30 - Chronic kidney disease, stage 3 unspecified Qualifiers: Chronic kidney disease stage 3 subtype: stage 3a (GFR 45-59) Qualified Code(s): N18.31 - Chronic kidney disease, stage 3a Plan: Followed by Dr. Power Orders: Orders Pneumococcal 20 Immunization 07/12/23 Z23 - Encounter for immunization Medications: Refilled albuterol sulfate 90 mcg/actuation (ProAir HFA) 2 puffs inhalation Q6H PRN 8.5 grams 1RF shortness of breath or wheezing J44.9 - Chronic obstructive pulmonary disease, unspecified Coding Level of Care Code Est Pt Level 4 (84013) Diagnoses Preoperative examination Z01.818 Major depression with psychotic features F32.3 Parkinson's disease without dyskinesia G20.A1 Anemia due to stage 3 chronic kidney disease, unspecified whether stage 3a or 3b CKD N18.30; D63.1 Anemia type: due to chronic kidney disease Chronic kidney disease stage: stage 3 (moderate) Chronic kidney disease stage 3 subtype: unspecified whether 3a or 3b COPD (chronic obstructive pulmonary disease) J44.9 Stage 3a chronic kidney disease N18.31 Chronic kidney disease stage 3 subtype: stage 3a (GFR 45-59) Additional Codes CHEPE-7 Assessment Billing - CHEPE-7 Assessment Tool: CHEPE-7 Assessment [id number] ([id number])
[2023-07-12 09:05] VITALS: BP 126/72; PULSE 106; O2SAT 98; BMI 18.9
== END 2023-07-12 10:16 | disposition home or self-care (01) ==
PROVIDERS: PCP Internal Medicine; Visit Provider Internal Medicine
DX: Z23 Encounter for immunization (principal)
CPT/HCPCS: 90471; 90677; 99214

== ENCOUNTER 2023-07-17 05:55 | Day surgery (SDC) | payer MEDICARE, MEDICAID, SELFPAY ==
[2023-07-17] VITALS (7 sets, daily range): BP systolic 117–141; BP diastolic 44–72; PULSE 69–90; RESP 10–18; TEMP 36.3–37.1; O2SAT 97–100; BMI 18.6
--- NOTE | 2023-07-17 06:44 | P.CONAN_ITS ---
[facility] Active Problems Active Problems: All Active Problems Major neurocognitive disorder due to another medical condition, with psychotic disturbance (Acute) Major depression with psychotic features (Acute) Parkinson's disease without dyskinesia (Acute) Environmental allergies (Acute) Sleep disorder (Acute) Anemia (Acute) COPD (chronic obstructive pulmonary disease) (Acute) CKD (chronic kidney disease), stage III (Acute) PTSD (post-traumatic stress disorder) (Acute) Hyperparathyroidism (Acute) Multinodular thyroid (Acute) Past Medical History Medical History (Updated 07/14/23 @ 23:33 by Diamond Montgomery MD) History of uterine cancer Parkinson's disease without dyskinesia Sleep disorder Anemia CKD (chronic kidney disease), stage III PTSD (post-traumatic stress disorder) Hyperparathyroidism Family history of malignant neoplasm of endometrium Polycystic kidney disease Multinodular thyroid Back pain GERD (gastroesophageal reflux disease) Chronic fatigue IBS (irritable bowel syndrome) Fibromyalgia COPD (chronic obstructive pulmonary disease) Family History Family History Father COPD (chronic obstructive pulmonary disease) Mother Arteriosclerosis Breast cancer, Onset Age: 80 Sister Diabetes mellitus Breast cancer, Onset Age: 70 Brother Bone cancer History of pituitary cancer Family history of problems with anesthesia: No Surgical History Surgical History Hx laparoscopic cholecystectomy History of esophagogastroduodenoscopy (EGD) H/O colonoscopy History of left breast biopsy Hx of cholecystectomy History of sinus surgery History of carpal tunnel syndrome History of total abdominal hysterectomy History of Problems with Anesthesia: No Social History Social History Household Members: None Housing: House Do you presently have visiting nurse or other home services: No Unable to assess alcohol history related to: Refusing to respond Alcohol intake: never Patient Tobacco Use Status: Never used Tobacco e-Cigarette/Vaping Use: Never Used Advance Directives: No Advance Directives Information Provided: Yes service: No Current occupational status: employed Sexual orientation: Straight/Heterosexual Cognitive needs: No Hearing needs: No Vision needs: Yes Meds Allergies Allergy/AdvReac Type Severity Reaction Status Date / Time tomato [TOMATO] Allergy Severe ANAPHYLAXIS Verified 07/12/23 09:29 Sulfa (Sulfonamide Allergy Intermediate susan TRAVIS Verified 07/12/23 09:29 Antibiotics) albuterol Allergy Unknown Unknown Verified 07/12/23 09:29 metoclopramide [Reglan] Allergy Unknown Unknown Verified 07/12/23 09:29 quetiapine [From Seroquel] AdvReac Severe Hallucinati Verified 07/12/23 09:29 ons Active Medications: Current Medications Lactated Ringer's (Lr) 1,000 mls @ 50 mls/hr IVCONT .Q20H ENZO Home Medications ?Medication ?Instructions ?Recorded ?Confirmed ?Last Taken ?Type bupropion HCl 300 mg 24 hr tablet, 300 mg PO QAM 02/22/20 05/30/23 05/30/23 08:00 History extended release paroxetine HCl 40 mg tablet 40 mg PO DAILY 04/13/23 05/30/23 05/30/23 08:00 History famotidine 40 mg tablet (Pepcid) 40 mg PO DAILY 05/30/23 05/30/23 05/30/23 08:00 History Exam Height,Weight and Vital Signs: Height 5 ft 6 in Weight 52.163 kg Last Vital Signs Temp 97.4 F 07/17/23 06:22 Pulse 71 07/17/23 06:22 Resp 16 07/17/23 06:22 BP 117/53 L 07/17/23 06:22 Pulse Ox 97 07/17/23 06:22 O2 Del Method Room Air 07/17/23 06:22 Airway Mallampati Class: II (missing a couple, denies anything loose) TM Dist: >3cm Neck ROM: Full Heart: rrr Lungs: cta Assessment and Plan Assessment Anesthesia Assessment: Anesthesia Plan Discussed and Chart Reviewed Final Anesthetic Review Family History of Problems with Anesthesia: No History of Problems with Anesthesia: No NPO: Yes ASA Class: III Final Preanesthetic Review: No Changes in Pt Med Stat, Meds/Allgs Chart Reviewed and Consent Obtained/Reviewed Patient Risk: Intermediate Procedure Risk: Intermediate Anesthetic Plan Anesthetic Plan: GA Disposition: Standard PACU
--- NOTE | 2023-07-17 07:01 | MHC.SHP ---
Pre-Procedural Eval Section A - 24 Hr Update-Section A only Date of Service: 07/17/23 The patient is an INPATIENT: No Changes since office visit: No Cold of Flu in the past 2 weeks, No New Medical Problems, No Changes in Medication and No Patient answered all questions The patient has been examined within 24 hours of the surgical procedure. The History & Physical has been completed within 30 days and I have reviewed it.: Yes Section B - Complete if H&P > 30 days Chief Complaint: depression Details of Present Illness: The patient reported been euthymic at this moment Relevant Family History (Specify if Yes): No Relevant Social History: None Present Medications: None Medical History: No relevant PMH History of Previous Operations: No relevant previous surgery Allergies: Allergies Allergy/AdvReac Type Severity Reaction Status Date / Time tomato [TOMATO] Allergy Severe ANAPHYLAXIS Verified 07/12/23 09:29 Sulfa (Sulfonamide Allergy Intermediate susan, ROBLES Verified 07/12/23 09:29 Antibiotics) albuterol Allergy Unknown Unknown Verified 07/12/23 09:29 metoclopramide [Reglan] Allergy Unknown Unknown Verified 07/12/23 09:29 quetiapine [From Seroquel] AdvReac Severe Hallucinati Verified 07/12/23 09:29 ons Review of Systems Sugical H&P ROS: Negative: Constitution, Cardiovascular, Respiratory, Neurological, Psychiatric, Hem-Onc, Allergic/Immunologic, Gastrointestinal, Genitourinary, Musculoskeletal, Integumentary, Endocrine and Eyes/Ears/Nose/Throat Exam Surgical H&P Exam: Normal: HEENT, Normal: Heart, Normal: Lungs, Normal: Extremities, Normal: Abdomen, Normal: Skin and Normal: Neurological Plan Diagnosis/Plan: Unchanged I have reviewed the history and physical and performed a pertinent physical examination on my patient. No changes have occurred unless specified. Time Spent With Patient Time: Total time managing care of this patient today __20__ minutes.
--- NOTE | 2023-07-17 07:16 | HO.ECTPROC ---
ECT Procedure Note Diagnosis/Treatment Date of Service: 07/17/23 Diagnosis: Major Depressive Disorder Previous ECT Date: 07/08/23 Treatment: Maintenance Interval Clinical Notes: The patient reported euthymia. No side effects with the previous ECT. ECT done as usual, no complications, good seizure, stopped by itself. She woke up without incidents. Time: Total time managing care of this patient today ____ minutes. ECT Settings Device: THYMATRON DGx Electrode Placement: Right Unilateral Program/Pulse Width: 0.25 Energy Percent: 100 Seizure Duration By EEG (in seconds): 47 By Motor Observation (in seconds): 30 Medications Administration General Anesthetic: Etomidate (12) Muscle Relaxant: Succinylcholine (80) Ancillary Medications Anti-emetics: Zofran - Pre ECT Miscillaneous Medications: Propofol Airway Management Airway Management: Bag Mask Ventilation Treatment Recommendations No Changes Recommended: No change Pt Tolerated Procedure w/o Issue: Yes
== END 2023-07-17 08:37 | disposition home or self-care (01) ==
PROVIDERS: Psychiatry & Neurology Psychiatry; PCP Internal Medicine; Visit Provider Psychiatry & Neurology Psychiatry
PROC: (CPT 90870; principal; 2023-07-17 08:00)
DX: F33.2 Major depressive disorder, recurrent severe without psychotic features (principal); F39 Unspecified mood [affective] disorder; F43.10 Post-traumatic stress disorder, unspecified; G20.A1 Parkinson's disease without dyskinesia, without mention of fluctuations; N18.30 Chronic kidney disease, stage 3 unspecified; Q61.3 Polycystic kidney, unspecified; D64.9 Anemia, unspecified; J44.9 Chronic obstructive pulmonary disease, unspecified; M79.7 Fibromyalgia; Z85.42 Personal history of malignant neoplasm of other parts of uterus; Z90.710 Acquired absence of both cervix and uterus; Z79.890 Hormone replacement therapy; Z79.899 Other long term (current) drug therapy; Z88.2 Allergy status to sulfonamides; Z88.8 Allergy status to other drugs, medicaments and biological substances
CPT/HCPCS: 90870; J0330; J2405; J2704

== ENCOUNTER → 2023-07-17 05:55 | Outpatient (BNV) | payer MEDICARE, MEDICAID, SELFPAY | PROVIDERS: PCP Internal Medicine; Visit Provider Psychiatry & Neurology Psychiatry | DX: F33.3 Major depressive disorder, recurrent, severe with psychotic symptoms (principal) | CPT/HCPCS: 90870 ==

== ENCOUNTER 2023-07-26 15:22 | Outpatient (AMB) | payer MEDICARE, MEDICAID, SELFPAY ==
[2023-07-26 15:25] VITALS: BP 116/72; PULSE 84; O2SAT 96; BMI 19.2
--- NOTE | 2023-07-26 15:25 | HO.NEPHOV ---
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 She recently had a major depressive disorder and was in the hospital needing ECT. She has polycystic kidney disease. She has not had any renal functions checked for some time. She denies any flank pain, night sweats, weight loss, hematuria, pedal edema, headache, visual disturbances, chest pain, shortness of breath, nausea, vomiting or any other urinary symptoms. Her tremors are well controlled with the current dose of carbidopa/levodopa. She tries to maintain good hydration and avoids nonsteroidal anti-inflammatory medications. Her blood pressure has been at goal. She closely follows up with her PCP. [facility] Medical History (Updated 07/14/23 @ 23:33 by Diamond Montgomery MD) History of uterine cancer Parkinson's disease without dyskinesia Sleep disorder Anemia CKD (chronic kidney disease), stage III PTSD (post-traumatic stress disorder) Hyperparathyroidism Family history of malignant neoplasm of endometrium Polycystic kidney disease Multinodular thyroid Back pain GERD (gastroesophageal reflux disease) Chronic fatigue IBS (irritable bowel syndrome) Fibromyalgia COPD (chronic obstructive pulmonary disease) Surgical History Hx laparoscopic cholecystectomy History of esophagogastroduodenoscopy (EGD) H/O colonoscopy History of left breast biopsy Hx of cholecystectomy History of sinus surgery History of carpal tunnel syndrome History of total abdominal hysterectomy Family History Father COPD (chronic obstructive pulmonary disease) Mother Arteriosclerosis Breast cancer, Onset Age: 80 Sister Diabetes mellitus Breast cancer, Onset Age: 70 Brother Bone cancer History of pituitary cancer Social History Household Members: None Housing: House Do you presently have visiting nurse or other home services: No Unable to assess alcohol history related to: Refusing to respond Alcohol intake: never Patient Tobacco Use Status: Never used Tobacco e-Cigarette/Vaping Use: Never Used service: No Current occupational status: employed Sexual orientation: Straight/Heterosexual Cognitive needs: No Hearing needs: No Vision needs: Yes Physical Exam Vital Signs: Last Vital Signs Pulse 84 07/26/23 15:25 BP 116/72 07/26/23 15:25 Pulse Ox 96 07/26/23 15:25 Oxygen Delivery Method Room Air 07/26/23 15:25 BMI result Body Mass Index 19.2 Const General: comfortable and no acute distress Orientation/consciousness: patient oriented x3 HEENT Head: Yes normocephalic Mouth: Normal oral and palatal mucosa present Eyes EOM: EOMs intact bilaterally Neck Neck: Yes supple Resp Auscultation: clear to auscultation bilaterally Cardio Jugular venous distension: no JVD Rate: regular rate GI Palpation (GI): Soft to palpation Auscultation: normal bowel sounds General: Yes no CVA tenderness Back/Spine/Pelvis Back: no CVA tenderness Skin General skin exam: no rashes or lesions noted Neuro General: patient oriented x3 and moves all extremities Extrem General: Yes no pedal edema Results Reviewed Nephrology Results: Hgb 11.8 g/dl (12.0-16.0) L 05/30/23 WBC 4.4 X10*3/uL (4.8-10.8) L 05/30/23 Plt Count 261 X10*3/uL (160-400) 05/30/23 Sodium 143 mmol/L (135-145) 06/01/23 Potassium 4.1 mmol/L (3.3-5.1) 06/01/23 Chloride 106 mmol/L (96-108) 06/01/23 Carbon Dioxide 31 mmol/L (22-29) H 06/01/23 BUN 20 mg/dL (9-16) H 06/01/23 Creatinine 1.19 mg/dL (0.5-1.4) 06/01/23 Calcium 9.9 mg/dL (8.4-10.2) 06/01/23 Urine Protein Trace mg/dL (Neg-Trace) 05/30/23 Assessment & Plan Assessment & Plan (1) CKD (chronic kidney disease), stage III: Comment: Dr Power Code(s): N18.30 - Chronic kidney disease, stage 3 unspecified Category: Medical Qualifiers: Chronic kidney disease stage 3 subtype: stage 3a (GFR 45-59) Qualified Code(s): N18.31 - Chronic kidney disease, stage 3a Plan Lien has CKD from polycystic kidney disease. She has history of microscopic hematuria and nephrolithiasis. She has no history of proteinuria. Blood pressure has been at goal. She has not had any recent blood work which I ordered. She has no flank pain, pedal edema. She does not take any nonsteroidal anti-inflammatory medications. She may need MRI to assess the status of renal cyst. She has no history of any CVA in the family. She should maintain good hydration. I did not make any medication changes today. All questions answered. Follow-up given. Orders: Orders Blood Urea Nitrogen Today N18.31 - Chronic kidney disease, stage 3a Calcium Today N18.31 - Chronic kidney disease, stage 3a Creatinine Today N18.31 - Chronic kidney disease, stage 3a Electrolytes Today N18.31 - Chronic kidney disease, stage 3a Coding Level of Care Code Est Pt Level 4 (44337) Diagnoses Stage 3a chronic kidney disease N18.31 Chronic kidney disease stage 3 subtype: stage 3a (GFR 45-59)
== END 2023-07-26 15:54 | disposition home or self-care (01) ==
PROVIDERS: PCP Internal Medicine; Visit Provider Internal Medicine Nephrology
DX: N18.31 Chronic kidney disease, stage 3a (principal)
CPT/HCPCS: 99214

== ENCOUNTER → 2023-07-26 15:22 | Outpatient (BNVA) | payer MEDICARE, MEDICAID, SELFPAY | PROVIDERS: PCP Internal Medicine; Visit Provider Internal Medicine Nephrology | DX: N20.0 Calculus of kidney (principal); Q61.3 Polycystic kidney, unspecified; N18.31 Chronic kidney disease, stage 3a | CPT/HCPCS: 99212 ==

== ENCOUNTER 2023-08-01 13:18 | Outpatient (AMB) | payer MEDICARE, MEDICAID, SELFPAY ==
[2023-08-01 13:19] VITALS: BP 130/60; PULSE 83; O2SAT 98; BMI 19.2
--- NOTE | 2023-08-01 13:19 | MHC.OFFVIS ---
Vital Signs 08/01/23 13:19 Height 5 ft 6 in Weight 119 lb 2 oz BMI 19.2 BP 130/60 Blood Pressure Location Rt brachial Position Sitting Pulse 83 Pulse Source Pulse Oximeter Pulse Oximetry (%) 98 Oxygen Delivery Method Room Air Intake Visit Reasons: 2 month F/U - Could not LVM Dean Of Admissions Required: No Accompanied by: Friend Allergies tomato [TOMATO] Allergy (Severe, Verified 08/01/23 13:24) ANAPHYLAXIS Sulfa (Sulfonamide Antibiotics) Allergy (Intermediate, Verified 08/01/23 13:24) TRAVIS davis albuterol Allergy (Unknown, Verified 08/01/23 13:24) Unknown metoclopramide [Reglan] Allergy (Unknown, Verified 08/01/23 13:24) Unknown quetiapine [From Seroquel] Adverse Reaction (Severe, Verified 08/01/23 13:24) Hallucinations Medication List - Last Reconciled 08/01/23 by Olga James MD albuterol sulfate 90 mcg/actuation (ProAir HFA) 2 puffs inhalation Q6H PRN benzocaine-menthol 15-3.6 mg (Sore Throat (benzocaine with menthol)) 1 isidoro mucous membrane DAILY 30 days bupropion HCl XL 300 mg PO QAM carbidopa-levodopa 25-100 mg 1.5 tabs PO QID 30 days famotidine (Pepcid) 40 mg PO DAILY paroxetine HCl 40 mg PO DAILY trazodone 25 - 50 mg (0.5 - 1 x 50 mg) PO BEDTIME MRX1 PRN 30 days HPI Comments Details: 72-year-old female comes for follow-up of her Parkinson's disease . AFter her last visit she was admitted to [facility] for poorly controlled mood- anxiety severe depression. she had ECT , therapy and she is feeling much better now. she was hospitalized for 45 days in psychiatric unit. Her parkinsons is stable . she has VNA and PT now she reports leg cramps at bedtime and sometimes during daytime . she also reports excessive sweating. [facility] Medical History (Updated 08/01/23 @ 13:42 by Olga James MD) Restless legs syndrome (RLS) Parkinson's disease without dyskinesia or fluctuating manifestations History of uterine cancer Parkinson's disease without dyskinesia Sleep disorder Anemia CKD (chronic kidney disease), stage III PTSD (post-traumatic stress disorder) Hyperparathyroidism Family history of malignant neoplasm of endometrium Polycystic kidney disease Multinodular thyroid Back pain GERD (gastroesophageal reflux disease) Chronic fatigue IBS (irritable bowel syndrome) Fibromyalgia COPD (chronic obstructive pulmonary disease) Surgical History Hx laparoscopic cholecystectomy History of esophagogastroduodenoscopy (EGD) H/O colonoscopy History of left breast biopsy Hx of cholecystectomy History of sinus surgery History of carpal tunnel syndrome History of total abdominal hysterectomy Family History Father COPD (chronic obstructive pulmonary disease) Mother Arteriosclerosis Breast cancer, Onset Age: 80 Sister Diabetes mellitus Breast cancer, Onset Age: 70 Brother Bone cancer History of pituitary cancer Social History Household Members: None Housing: House Do you presently have visiting nurse or other home services: No Unable to assess alcohol history related to: Refusing to respond Alcohol intake: never Patient Tobacco Use Status: Never used Tobacco e-Cigarette/Vaping Use: Never Used service: No Current occupational status: employed Sexual orientation: Straight/Heterosexual Cognitive needs: No Hearing needs: No Vision needs: Yes Physical Exam Vital Signs: Last Vital Signs Pulse 83 08/01/23 13:19 BP 130/60 08/01/23 13:19 Pulse Ox 98 08/01/23 13:19 Oxygen Delivery Method Room Air 08/01/23 13:19 BMI result Body Mass Index 19.2 Const General: cooperative Nutritional Appearance: average body habitus Orientation/consciousness: patient oriented x3 HEENT Head: Yes normal to inspection Neck Other: mild antecollis and restricted range of motion Neuro Other: Mild decreased blink and facial expression mild lower lip tremors, tongue tremors , slow tongue movements Voice- good Wade UE postural tremors Fine Finger movements - mildly decreased wade R>L Alternating hand movements - decreased wade Hand movements - decreased wade Foot taps- decreased wade No cog wheel rigidity gait - with cane mild slowness General: patient oriented x3 and no focal motor deficits Cranial nerves: Yes CN's II-XII intact bilaterally Coordination: [id number] test normal Psych Affect: Anxious affect present Assessment & Plan Assessment & Plan (1) Parkinson's disease without dyskinesia or fluctuating manifestations: Code(s): G20.A1 - Parkinson's disease without dyskinesia, without mention of fluctuations Category: Medical (2) Sleep disorder: Code(s): G47.9 - Sleep disorder, unspecified Category: Medical (3) Restless legs syndrome (RLS): Code(s): G25.81 - Restless legs syndrome Category: Medical Plan Continue carbidopa/levodopa 25/100 1.5 tabs qid Continue exercise F/u Dr. Ramey - discuss about mirtazapine or increasing trazadone I will trial her on gabapentin 100mg 1-3 tabs qhs Medications: New gabapentin 1-3 caps orally bedtime; 90 caps 3RF Coding Level of Care Code Est Pt Level 4 (50182) Diagnoses Parkinson's disease without dyskinesia or fluctuating manifestations G20.A1 Sleep disorder G47.9 Restless legs syndrome (RLS) G25.81
== END 2023-08-01 13:46 | disposition home or self-care (01) ==
PROVIDERS: Visit Provider Psychiatry & Neurology Neurology
DX: G20.A1 Parkinson's disease without dyskinesia, without mention of fluctuations (principal); G47.9 Sleep disorder, unspecified; G25.81 Restless legs syndrome
CPT/HCPCS: 99214

== ENCOUNTER → 2023-08-01 13:18 | Outpatient (BNVA) | payer MEDICARE, MEDICAID, SELFPAY | PROVIDERS: Visit Provider Psychiatry & Neurology Neurology | DX: G20.A1 Parkinson's disease without dyskinesia, without mention of fluctuations (principal); G47.9 Sleep disorder, unspecified; G25.81 Restless legs syndrome | CPT/HCPCS: 99212 ==

== ENCOUNTER 2023-08-07 08:15 | Outpatient (AMB) | payer MEDICARE, MEDICAID, SELFPAY ==
[2023-08-07 08:17] VITALS: BP 128/78; PULSE 85; O2SAT 97; BMI 19.2
--- NOTE | 2023-08-07 08:17 | A.OFFPC_ITS ---
Vital Signs 08/07/23 08:17 Height 5 ft 6 in Weight 119 lb BMI 19.2 BP 128/78 Blood Pressure Location Rt brachial Position Sitting Pulse 85 Pulse Source Pulse Oximeter Pulse Oximetry (%) 97 Oxygen Delivery Method Room Air Intake Visit Reasons: Annual PE/Per Dr. Montgoemry Intake Note: Pt is here today for her PE: Last mammogram 05/02/20 Allergies tomato [TOMATO] Allergy (Severe, Verified 08/07/23 08:24) ANAPHYLAXIS Sulfa (Sulfonamide Antibiotics) Allergy (Intermediate, Verified 08/07/23 08:24) TRAVIS davis albuterol Allergy (Unknown, Verified 08/07/23 08:24) Unknown metoclopramide [Reglan] Allergy (Unknown, Verified 08/07/23 08:24) Unknown quetiapine [From Seroquel] Adverse Reaction (Severe, Verified 08/07/23 08:24) Hallucinations Medication List - Last Reconciled 08/07/23 by Diamond Montgomery MD albuterol sulfate 90 mcg/actuation (ProAir HFA) 2 puffs inhalation Q6H PRN benzocaine-menthol 15-3.6 mg (Sore Throat (benzocaine with menthol)) 1 isidoro mucous membrane DAILY 30 days bupropion HCl XL 300 mg PO QAM carbidopa-levodopa 25-100 mg 1.5 tabs PO QID 30 days famotidine (Pepcid) 40 mg PO DAILY gabapentin 1-3 caps orally bedtime; paroxetine HCl 40 mg PO DAILY trazodone 25 - 50 mg (0.5 - 1 x 50 mg) PO BEDTIME MRX1 PRN 30 days Tobacco use date assessed: 08/07/23 Fall risk assessment: 2 + Falls in past year Last assessed Fall Risk: 08/07/23 Dental Screening Dental Screen Date: 08/07/23 Did you have a dental visit in the last 12 months?: Yes Did you have a dental problem in the last 6 months where you did not have access to dental care?: No Was dental information given to patient?: Patient has dentist HPI Annual PE/Per Dr. Montgomery HPI Details 73 year old Lady here today for physical exam. She is up-to-date with her screening colonoscopy done in [address] Son with removal of a tubular adenoma, due for a recheck in 2026. She has history of Parkinson's disease without dyskinesia currently followed by Dr. James. She sees Dr. Power for her polycystic kidney disease and history of nephrolithiasis, currently asymptomatic. She is followed by Dr. Shearer for her major depression/PTSD, treated with ECT in the past. She takes famotidine for her chronic reflux. She has osteoporosis in lumbar spine, left femoral neck and left femur as seen on bone density [facility] Medical History (Updated 09/14/23 @ 02:49 by Diamond Montgomery MD) Osteoporosis Restless legs syndrome (RLS) Parkinson's disease without dyskinesia or fluctuating manifestations History of uterine cancer Parkinson's disease without dyskinesia Sleep disorder Anemia CKD (chronic kidney disease), stage III PTSD (post-traumatic stress disorder) Hyperparathyroidism Family history of malignant neoplasm of endometrium Polycystic kidney disease Multinodular thyroid Back pain GERD (gastroesophageal reflux disease) Chronic fatigue IBS (irritable bowel syndrome) Fibromyalgia COPD (chronic obstructive pulmonary disease) Surgical History Hx laparoscopic cholecystectomy History of esophagogastroduodenoscopy (EGD) H/O colonoscopy History of left breast biopsy Hx of cholecystectomy History of sinus surgery History of carpal tunnel syndrome History of total abdominal hysterectomy Family History Father COPD (chronic obstructive pulmonary disease) Mother Arteriosclerosis Breast cancer, Onset Age: 80 Sister Diabetes mellitus Breast cancer, Onset Age: 70 Brother Bone cancer History of pituitary cancer Social History Household Members: None Housing: House Do you presently have visiting nurse or other home services: No Unable to assess alcohol history related to: Refusing to respond Alcohol intake: never Patient Tobacco Use Status: Never used Tobacco e-Cigarette/Vaping Use: Never Used service: No Current occupational status: unemployed Sexual orientation: Straight/Heterosexual Cognitive needs: No Hearing needs: No Vision needs: Yes Questionnaire Thrive Questionnaire Date Thrive assessed: 07/12/23 CHEPE-7 AMB Questionnaire CHEPE-7 Date CHEPE - 7 assessed: 07/12/23 Source: Developed by Drs. Jagjit Osman, Gracia B.W. Emilio Kowalski and colleagues, with an educational luisa from [employer]. Review of Systems Const Denies fatigue and Denies headache(s) Eyes Details: Up-to-date with her eye exam goes to [facility] in [place] Denies change in vision ENT Details: Goes to the dentist for her dental prophylaxis every 6 months Denies change in voice, Denies headache(s) and Denies hoarseness Card Denies chest pain, Denies irregular heart rhythm, Denies lightheadedness and Denies dyspnea Resp Denies dyspnea GI Denies abdominal pain, Denies change in bowel habits, Denies diarrhea and Denies nausea Reports no additional complaints Musc Denies myalgias, Denies muscle cramps, Denies numbness and Denies tingling Skin/Breast Denies hirsutism and Denies alopecia Neuro Denies headache(s), Denies numbness and Denies tingling Psych Reports as per HPI Endo Denies cold intolerance, Denies fatigue and Denies heat intolerance Andrés/Lymph Denies easy bruising Aller/Immun Reports no additional complaints Physical exam (Primary Care) Vital Signs: Last Vital Signs Pulse 85 08/07/23 08:17 BP 128/78 08/07/23 08:17 Pulse Ox 97 08/07/23 08:17 Oxygen Delivery Method Room Air 08/07/23 08:17 BMI result Body Mass Index 19.2 Tobacco/Smoking Status: Tobacco use Status Tobacco use date assessed 08/07/23 08/07/23 08:25 Patient Tobacco Use Status Never used Tobacco 08/07/23 08:18 e-Cigarette/Vaping Use Never Used 08/07/23 08:18 Thrive Assessment: Date of Thrive Assessment Date Thrive assessed 07/12/23 08/07/23 08:18 Const General: comfortable and no acute distress Orientation/consciousness: patient oriented x3 HENMT Mouth: Normal oral and palatal mucosa present, oropharynx normal and moist mucous membranes Eyes General: appearance normal, both eyes and all related structures Conjunctivae: conjunctivae normal Pupils: Equal, round and reactive pupils present EOM: EOMs intact bilaterally Neck Neck: Yes full ROM, Yes no lymphadenopathy and Yes supple Resp Effort & Inspection: normal respiratory effort and able to speak in complete sentences Auscultation: clear to auscultation bilaterally Cardio Rate: regular rate Rhythm: regular rhythm Heart sounds: S1 normal heart sound present and S2 normal heart sound present GI Inspection: Yes normal to inspection Palpation (GI): Soft to palpation, nontender and no masses Auscultation: normal bowel sounds General: Yes no CVA tenderness Back/Spine/Pelvis Back: no CVA tenderness Skin General skin exam: no rashes or lesions noted Neuro General: patient oriented x3, gait normal, tone normal, moves all extremities, Normal light touch and pain sensation and no focal motor deficits Cranial nerves: Yes Equal, round and reactive pupils present Cognition (Neuro): normal cognition Gait exam (Neuro): Normal gait present Motor exam (neuro): 5/5 motor strength present throughout Extrem General: Yes full ROM, Yes no joint enlargement and Yes no clubbing, cyanosis or edema Psych Appearance: grossly normal and well kempt Mental Status: mental status grossly normal Affect: normal affect Assessment and Plan Assessment & Plan (1) Annual visit for general adult medical examination with abnormal findings: Code(s): Z00.01 - Encounter for general adult medical examination with abnormal findings Plan: Will check appropriate labs. Recommended dental visit every 6 months and regular eye exams, at least every 2 years. Take adequate calcium in diet and vitamin-D 3 at 2000 IU per cap once a day, in addition to weight-bearing exercises to help maintain good muscle tone and weight control. Instructed to do self-breast exam, and recommended to get yearly mammogram, repeat bone density scan ordered. Up-to-date with her screening colonoscopy done by Dr. Dauqan mathew in 2021 . Up-to-date with all her vaccines, but does not want to get vaccinated against the flu. (2) COPD (chronic obstructive pulmonary disease): Code(s): J44.9 - Chronic obstructive pulmonary disease, unspecified Plan: Currently on albuterol inhaler which patient states she is seldom needs to use (3) Multinodular thyroid: Code(s): E04.2 - Nontoxic multinodular goiter Plan: Had a thyroid ultrasound done years ago with no further thyroid nodule biopsy indicated. TSH and free T4 ordered today (4) Hyperparathyroidism: Comment: ff'd by dr preston Code(s): E21.3 - Hyperparathyroidism, unspecified Plan: Last calcium level was within normal limits (5) CKD (chronic kidney disease), stage III: Comment: Dr Power Code(s): N18.30 - Chronic kidney disease, stage 3 unspecified Qualifiers: Chronic kidney disease stage 3 subtype: stage 3a (GFR 45-59) Qualified Code(s): N18.31 - Chronic kidney disease, stage 3a Plan: Followed by Dr. Power , stressed importance of avoidance of NSAIDs and staying well hydrated. Has an appointment for follow-up with him again in 10/2023 (6) Parkinson's disease without dyskinesia: Code(s): G20.A1 - Parkinson's disease without dyskinesia, without mention of fluctuations Plan: Followed by Dr. James (7) Major depression with psychotic features: Code(s): F32.3 - Major depressive disorder, single episode, severe with psychotic features Plan: Followed by Dr. Shearer at [facility] (8) Osteoporosis: Code(s): M81.0 - Age-related osteoporosis without current pathological fracture Qualifiers: Osteoporosis type: age-related Presence of current pathological fracture: without current pathological fracture Qualified Code(s): M81.0 - Age- related osteoporosis without current pathological fracture Plan: Repeat bone density scan ordered. In the meantime do regular weight-bearing exercise, take adequate calcium from dietary sources and start taking [id number] vitamin D3 at 2000 units daily. Orders: Orders XR DEXA axial skeleton 08/07/23 Z12.31 - Encounter for screening mammogram for malignant neoplasm of breast, E21.3 - Hyperparathyroidism, unspecified, E04.2 - Nontoxic multinodular goiter, N18.31 - Chronic kidney disease, stage 3a, J44.9 - Chronic obstructive pulmonary disease, unspecified, G20.A1 - Parkinson's disease without dyskinesia, without mention of fluctuations, F32.3 - Major depressive disorder, single episode, severe with psychotic features, Z78.0 - Asymptomatic menopausal state TSH reflex Free T4 08/07/23 Z78.0 - Asymptomatic menopausal state, E04.2 - Nontoxic multinodular goiter, E21.3 - Hyperparathyroidism, unspecified Vitamin D 25-OH Total 08/07/23 Z78.0 - Asymptomatic menopausal state, E04.2 - Nontoxic multinodular goiter, E21.3 - Hyperparathyroidism, unspecified MM tomosynthesis screening BI 08/07/23 Z12.31 - Encounter for screening mammogram for malignant neoplasm of breast, E21.3 - Hyperparathyroidism, unspecified, E04.2 - Nontoxic multinodular goiter, N18.31 - Chronic kidney disease, stage 3a, J44.9 - Chronic obstructive pulmonary disease, unspecified, G20.A1 - Parkinson's disease without dyskinesia, without mention of fluctuations, F32.3 - Major depressive disorder, single episode, severe with psychotic features, Z78.0 - Asymptomatic menopausal state Coding Level of Care Code Est Pt Prev Care >65y(36963) Diagnoses Annual visit for general adult medical examination with abnormal findings Z00.01 COPD (chronic obstructive pulmonary disease) J44.9 Multinodular thyroid E04.2 Hyperparathyroidism E21.3 Stage 3a chronic kidney disease N18.31 Chronic kidney disease stage 3 subtype: stage 3a (GFR 45-59) Parkinson's disease without dyskinesia G20.A1 Major depression with psychotic features F32.3 Age-related osteoporosis without current pathological fracture M81.0 Osteoporosis type: age-related Presence of current pathological fracture: without current pathological fracture
== END 2023-08-07 08:52 | disposition home or self-care (01) ==
LOC: HO.HMGC 08:15
PROVIDERS: Visit Provider Internal Medicine
DX: Z00.00 Encounter for general adult medical examination without abnormal findings (principal); J44.9 Chronic obstructive pulmonary disease, unspecified; E21.3 Hyperparathyroidism, unspecified; N18.31 Chronic kidney disease, stage 3a; F32.3 Major depressive disorder, single episode, severe with psychotic features; E04.2 Nontoxic multinodular goiter; G20.A1 Parkinson's disease without dyskinesia, without mention of fluctuations; M81.0 Age-related osteoporosis without current pathological fracture
CPT/HCPCS: 99397

== ENCOUNTER 2023-08-07 09:20 | Outpatient (REF) | payer MEDICARE, MEDICAID, SELFPAY ==
[2023-08-07 11:32] LABS: TSH reflex Free T4 0.84 uIU/mL (0.32-4.0); Vitamin D 25-OH Total 43.2 ng/mL (>30)
== END 2023-08-07 09:21 | disposition home or self-care (01) ==
LOC: HO.HMGCLDS 09:20
PROVIDERS: PCP Internal Medicine; Visit Provider Internal Medicine
DX: E04.2 Nontoxic multinodular goiter (principal); E21.3 Hyperparathyroidism, unspecified; Z78.0 Asymptomatic menopausal state
CPT/HCPCS: 36415; 82306; 84443

== ENCOUNTER 2023-08-14 06:30 | Day surgery (SDC) | payer OTHER, SELFPAY ==
[2023-08-14] VITALS (7 sets, daily range): BP systolic 123–152; BP diastolic 56–71; PULSE 60–72; RESP 11–16; TEMP 36.3–36.8; O2SAT 98–100; BMI 18.6
--- NOTE | 2023-08-14 06:43 | HO.ANESPROP2 ---
[facility] Active Problems Active Problems: All Active Problems Restless legs syndrome (RLS) (Acute) Parkinson's disease without dyskinesia or fluctuating manifestations (Acute) Major neurocognitive disorder due to another medical condition, with psychotic disturbance (Acute) Major depression with psychotic features (Acute) Parkinson's disease without dyskinesia (Acute) Environmental allergies (Acute) Sleep disorder (Acute) Anemia (Acute) COPD (chronic obstructive pulmonary disease) (Acute) CKD (chronic kidney disease), stage III (Acute) PTSD (post-traumatic stress disorder) (Acute) Hyperparathyroidism (Acute) Multinodular thyroid (Acute) Past Medical History Medical History Restless legs syndrome (RLS) Parkinson's disease without dyskinesia or fluctuating manifestations History of uterine cancer Parkinson's disease without dyskinesia Sleep disorder Anemia CKD (chronic kidney disease), stage III PTSD (post-traumatic stress disorder) Hyperparathyroidism Family history of malignant neoplasm of endometrium Polycystic kidney disease Multinodular thyroid Back pain GERD (gastroesophageal reflux disease) Chronic fatigue IBS (irritable bowel syndrome) Fibromyalgia COPD (chronic obstructive pulmonary disease) Family History Family History Father COPD (chronic obstructive pulmonary disease) Mother Arteriosclerosis Breast cancer, Onset Age: 80 Sister Diabetes mellitus Breast cancer, Onset Age: 70 Brother Bone cancer History of pituitary cancer Family history of problems with anesthesia: No Surgical History Surgical History Hx laparoscopic cholecystectomy History of esophagogastroduodenoscopy (EGD) H/O colonoscopy History of left breast biopsy Hx of cholecystectomy History of sinus surgery History of carpal tunnel syndrome History of total abdominal hysterectomy History of Problems with Anesthesia: No Social History Social History Household Members: None Housing: House Do you presently have visiting nurse or other home services: No Unable to assess alcohol history related to: Refusing to respond Alcohol intake: never Patient Tobacco Use Status: Never used Tobacco e-Cigarette/Vaping Use: Never Used Advance Directives: No Advance Directives Information Provided: Yes service: No Current occupational status: unemployed Sexual orientation: Straight/Heterosexual Cognitive needs: No Hearing needs: No Vision needs: Yes Meds Allergies Allergy/AdvReac Type Severity Reaction Status Date / Time tomato [TOMATO] Allergy Severe ANAPHYLAXIS Verified 08/07/23 08:24 Sulfa (Sulfonamide Allergy Intermediate TRAVIS davis Verified 08/07/23 08:24 Antibiotics) albuterol Allergy Unknown Unknown Verified 08/07/23 08:24 metoclopramide [Reglan] Allergy Unknown Unknown Verified 08/07/23 08:24 quetiapine [From Seroquel] AdvReac Severe Hallucinati Verified 08/07/23 08:24 ons Home Medications ?Medication ?Instructions ?Recorded ?Confirmed ?Last Taken ?Type bupropion HCl 300 mg 24 hr tablet, 300 mg PO QAM 02/22/20 08/01/23 05/30/23 08:00 History extended release paroxetine HCl 40 mg tablet 40 mg PO DAILY 04/13/23 08/01/23 05/30/23 08:00 History famotidine 40 mg tablet (Pepcid) 40 mg PO DAILY 05/30/23 08/01/23 05/30/23 08:00 History Exam Airway Mallampati Class: II TM Dist: >3cm Neck ROM: Full Heart: rrr Lungs: cta Assessment and Plan Assessment Anesthesia Assessment: Anesthesia Plan Discussed and Chart Reviewed Final Anesthetic Review Family History of Problems with Anesthesia: No History of Problems with Anesthesia: No NPO: Yes ASA Class: III Final Preanesthetic Review: No Changes in Pt Med Stat, Meds/Allgs Chart Reviewed and Consent Obtained/Reviewed Patient Risk: Intermediate Procedure Risk: Intermediate Anesthetic Plan Anesthetic Plan: GA Disposition: Standard PACU
[2023-08-14] MEDS: Lactated Ringers 1,000 ML 50 ML IVCONT (07:09)
--- NOTE | 2023-08-14 07:12 | MHC.SHP ---
Pre-Procedural Eval Section A - 24 Hr Update-Section A only Date of Service: 08/14/23 The patient is an INPATIENT: No Changes since office visit: No Cold of Flu in the past 2 weeks, No New Medical Problems, No Changes in Medication and No Patient answered all questions The patient has been examined within 24 hours of the surgical procedure. The History & Physical has been completed within 30 days and I have reviewed it.: Yes Section B - Complete if H&P > 30 days Chief Complaint: depression Details of Present Illness: Stable, on maintenance ECT Relevant Family History (Specify if Yes): No Relevant Social History: None Present Medications: see Short Stay Collaborative assessment Medical History: No relevant PMH History of Previous Operations: No relevant previous surgery Allergies: Allergies Allergy/AdvReac Type Severity Reaction Status Date / Time tomato [TOMATO] Allergy Severe ANAPHYLAXIS Verified 08/07/23 08:24 Sulfa (Sulfonamide Allergy Intermediate palomoky, ROBLES Verified 08/07/23 08:24 Antibiotics) albuterol Allergy Unknown Unknown Verified 08/07/23 08:24 metoclopramide [Reglan] Allergy Unknown Unknown Verified 08/07/23 08:24 quetiapine [From Seroquel] AdvReac Severe Hallucinati Verified 08/07/23 08:24 ons Review of Systems Sugical H&P ROS: Negative: Constitution, Cardiovascular, Respiratory, Neurological, Psychiatric, Hem-Onc, Allergic/Immunologic, Gastrointestinal, Genitourinary, Musculoskeletal, Integumentary, Endocrine and Eyes/Ears/Nose/Throat Exam Surgical H&P Exam: Normal: HEENT, Normal: Heart, Normal: Lungs, Normal: Extremities, Normal: Abdomen, Normal: Skin and Normal: Neurological Plan Diagnosis/Plan: Unchanged I have reviewed the history and physical and performed a pertinent physical examination on my patient. No changes have occurred unless specified. Time Spent With Patient Time: Total time managing care of this patient today __20__ minutes.
--- NOTE | 2023-08-14 07:22 | HO.ECTPROC ---
ECT Procedure Note Diagnosis/Treatment Date of Service: 08/14/23 Diagnosis: Major Depressive Disorder Previous ECT Date: 07/15/23 Treatment: Maintenance Interval Clinical Notes: The patient reports euthymia, no changes on her medications. She denies side effects with preivious ECT. ECT done as usual, no complications, woke up well. Time: Total time managing care of this patient today ____ minutes. ECT Settings Device: THYMATRON DGx Electrode Placement: Right Unilateral Program/Pulse Width: 0.25 Energy Percent: 100 Seizure Duration By EEG (in seconds): 44 By Motor Observation (in seconds): 31 Medications Administration General Anesthetic: Etomidate (12) Muscle Relaxant: Succinylcholine (80) Ancillary Medications Analgesics: Torodol - Pre ECT Anti-emetics: Zofran - Pre ECT Miscillaneous Medications: Propofol (30 after ECT) Airway Management Airway Management: Bag Mask Ventilation Treatment Recommendations No Changes Recommended: No change Pt Tolerated Procedure w/o Issue: Yes
== END 2023-08-14 08:46 | disposition home or self-care (01) ==
PROVIDERS: PCP Internal Medicine; Visit Provider Psychiatry & Neurology Psychiatry
PROC: (CPT 90870; principal; 2023-08-14 07:30)
DX: F32.3 Major depressive disorder, single episode, severe with psychotic features (principal); G20.A1 Parkinson's disease without dyskinesia, without mention of fluctuations; J44.9 Chronic obstructive pulmonary disease, unspecified; Z79.899 Other long term (current) drug therapy; Z88.2 Allergy status to sulfonamides
CPT/HCPCS: 90870; J0330; J2405; J2704

== ENCOUNTER → 2023-08-14 06:30 | Outpatient (BNV) | payer OTHER, MEDICAID, SELFPAY | PROVIDERS: PCP Internal Medicine; Visit Provider Psychiatry & Neurology Psychiatry | DX: F33.3 Major depressive disorder, recurrent, severe with psychotic symptoms (principal) | CPT/HCPCS: 90870 ==

== ENCOUNTER → 2023-09-06 13:45 | Outpatient (BNV) | payer OTHER, SELFPAY | PROVIDERS: PCP Internal Medicine; Visit Provider Radiology Diagnostic Radiology | DX: Z12.31 Encounter for screening mammogram for malignant neoplasm of breast (principal) | CPT/HCPCS: 77063; 77067 ==

== ENCOUNTER 2023-09-06 13:48 | Outpatient (REF) | payer OTHER, SELFPAY ==
--- NOTE | ~2023-09-06 | MM_ITS ---
EXAMINATION: BONE DENSITOMETRY CLINICAL INDICATION: Asymptomatic menopausal state. COMPARISON: Baseline BD dated 01/18/2011 and 09/06/2023. TECHNIQUE: Using a [employer] DXA System (software version: 13.1) manufactured by [employer], dual-energy x-ray absorptiometry was performed of the lumbar spine, left hip and left forearm radius 33%. The images are of good technical quality. Summary results are attached. FINDINGS: LEFT FEMUR, NECK: Current: BMD 0.662 g/cm2, Z-score -1.5, T-score -2.7, osteoporosis. Baseline: BMD 0.836 g/cm2. LEFT FEMUR, TOTAL: Current: BMD 0.597 g/cm2, Z-score -2.3, T-score -3.3, osteoporosis, 29.9% decrease from baseline (<5% change is not significant). Baseline: BMD 0.852 g/cm2. AP SPINE L1-L4: Current: BMD 0.795 g/cm2, Z-score -2.4, T-score -3.2, osteoporosis, 20.1% decrease from baseline (<5% change is not significant). Baseline: BMD 0.995 g/cm2. LEFT FOREARM RADIUS 33%: BMD 0.622 g/cm2, Z-score -0.9, T-score -2.9, osteoporosis. IDENTIFIED RISK FACTORS: Bilateral ovariectomy, early menopause, secondary osteoporosis, history of fracture (adult), hysterectomy. HISTORY OF FRACTURE: Wrist. MEDICATIONS: None listed. MM/XR DEXA appendicular skeleton IMPRESSION: 1. DIAGNOSIS: Severe osteoporosis based on the lowest T-score value of -3.3 in the total femur and history of fracture applying World Health Organization criteria. 2. 10-YEAR FRACTURE RISK PREDICTION, FRAX: According to the guidelines, FRAX calculation should only be performed on patients in the osteopenia bone density category. Therefore, FRAX was not performed on this patient.? 3. Treatment Recommendations: NOF guidelines recommend consideration for treatment in postmenopausal women and men age 50 and older presenting with the following: -A hip or vertebral (clinical or morphometric) fracture. -T-score less than or equal to -2.5 at the femoral neck or spine after appropriate evaluation to exclude secondary causes. -Low bone mass at the hip or spine and a 10-year fracture probability by FRAX of greater than or equal to 3% for hip fracture or greater than or equal to 20% for major osteoporotic fracture based on the [place] adapted WHO algorithm. 4. Other Recommendations: All treatment decisions require clinical judgment and consideration of individual patient factors, including patient preferences, comorbidities, previous drug use, risk factors not captured in the FRAX model (e.g. frailty, falls, vitamin D deficiency, increased bone turnover, interval significant decline in bone density) and possible under or overestimation of fracture risk by FRAX. Additional medical evaluation for secondary cause of low bone mineral density may be appropriate. FUTURE SCAN RECOMMENDATION: People with diagnosed cases of osteoporosis or at high risk for fracture should have regular bone mineral density tests. For patients eligible for Medicare, routine testing is allowed once every 2 years. The testing frequency can be increased to one year for patients who have rapidly progressing disease, those who are receiving or discontinuing medical therapy to restore bone mass, or have additional risk factors.
--- NOTE | ~2023-09-06 | MM_ITS ---
EXAMINATION: MM SCREENING DIGITAL BREAST TOMOSYNTHESIS, BILATERAL CLINICAL INFORMATION: Screening. Asymptomatic. COMPARISON: Mammography: This study is compared with prior exams dating back to 2015. TECHNIQUE: Digital breast tomosynthesis is performed in both the craniocaudal and mediolateral oblique views along with computer-aided detection (CAD). Synthesized 2D images are generated from the tomosynthesis. FINDINGS: There are scattered areas of fibroglandular density (ACR BI-RADS breast composition Category b). There are no significant masses, abnormal calcifications, or other abnormalities. There are few, coarse, benign calcifications in the left breast. There is a biopsy tissue marker present in the left breast. MM/MM tomosynthesis screening BI IMPRESSION: No mammographic evidence of malignancy. ASSESSMENT: BI-RADS BI-RADS 2 - Benign Findings RECOMMENDATION: Routine annual mammography screening. 1 year F/U This examination should not preclude the clinical evaluation of a suspicious palpable abnormality. This patient's information was entered into a reminder system with a target due date for their next mammogram.
== END 2023-09-06 13:49 | disposition home or self-care (01) ==
LOC: HO.MAMMO 13:48
PROVIDERS: PCP Internal Medicine; Visit Provider Internal Medicine
DX: E21.3 Hyperparathyroidism, unspecified (principal); E04.2 Nontoxic multinodular goiter; N18.31 Chronic kidney disease, stage 3a; J44.9 Chronic obstructive pulmonary disease, unspecified; G20.A1 Parkinson's disease without dyskinesia, without mention of fluctuations; F32.3 Major depressive disorder, single episode, severe with psychotic features; Z12.31 Encounter for screening mammogram for malignant neoplasm of breast; Z13.820 Encounter for screening for osteoporosis; Z78.0 Asymptomatic menopausal state
CPT/HCPCS: 77063; 77067; 77081

== ENCOUNTER 2023-09-09 06:03 | Day surgery (SDC) | payer MEDICARE, SELFPAY ==
--- NOTE | 2023-09-09 06:43 | P.CONAN_ITS ---
[facility] Active Problems Active Problems: All Active Problems Restless legs syndrome (RLS) (Acute) Parkinson's disease without dyskinesia or fluctuating manifestations (Acute) Major neurocognitive disorder due to another medical condition, with psychotic disturbance (Acute) Major depression with psychotic features (Acute) Parkinson's disease without dyskinesia (Acute) Environmental allergies (Acute) Sleep disorder (Acute) Anemia (Acute) COPD (chronic obstructive pulmonary disease) (Acute) CKD (chronic kidney disease), stage III (Acute) PTSD (post-traumatic stress disorder) (Acute) Hyperparathyroidism (Acute) Multinodular thyroid (Acute) Past Medical History Medical History Restless legs syndrome (RLS) Parkinson's disease without dyskinesia or fluctuating manifestations History of uterine cancer Parkinson's disease without dyskinesia Sleep disorder Anemia CKD (chronic kidney disease), stage III PTSD (post-traumatic stress disorder) Hyperparathyroidism Family history of malignant neoplasm of endometrium Polycystic kidney disease Multinodular thyroid Back pain GERD (gastroesophageal reflux disease) Chronic fatigue IBS (irritable bowel syndrome) Fibromyalgia COPD (chronic obstructive pulmonary disease) Family History Family History Father COPD (chronic obstructive pulmonary disease) Mother Arteriosclerosis Breast cancer, Onset Age: 80 Sister Diabetes mellitus Breast cancer, Onset Age: 70 Brother Bone cancer History of pituitary cancer Family history of problems with anesthesia: No Surgical History Surgical History Hx laparoscopic cholecystectomy History of esophagogastroduodenoscopy (EGD) H/O colonoscopy History of left breast biopsy Hx of cholecystectomy History of sinus surgery History of carpal tunnel syndrome History of total abdominal hysterectomy History of Problems with Anesthesia: No Social History Social History Household Members: None Housing: House Do you presently have visiting nurse or other home services: No Unable to assess alcohol history related to: Refusing to respond Alcohol intake: never Patient Tobacco Use Status: Never used Tobacco e-Cigarette/Vaping Use: Never Used Advance Directives: No Advance Directives Information Provided: Yes service: No Current occupational status: unemployed Sexual orientation: Straight/Heterosexual Cognitive needs: No Hearing needs: No Vision needs: Yes Meds Allergies Allergy/AdvReac Type Severity Reaction Status Date / Time tomato [TOMATO] Allergy Severe ANAPHYLAXIS Verified 08/07/23 08:24 Sulfa (Sulfonamide Allergy Intermediate TRAVIS davis Verified 08/07/23 08:24 Antibiotics) albuterol Allergy Unknown Unknown Verified 08/07/23 08:24 metoclopramide [Reglan] Allergy Unknown Unknown Verified 08/07/23 08:24 quetiapine [From Seroquel] AdvReac Severe Hallucinati Verified 08/07/23 08:24 ons Active Medications: Current Medications Lactated Ringer's (Lr) 1,000 mls @ 50 mls/hr IVCONT .Q20H ENZO Home Medications ?Medication ?Instructions ?Recorded ?Confirmed ?Last Taken ?Type bupropion HCl 300 mg 24 hr tablet, 300 mg PO QAM 02/22/20 08/01/23 05/30/23 08:00 History extended release paroxetine HCl 40 mg tablet 40 mg PO DAILY 04/13/23 08/01/23 05/30/23 08:00 History famotidine 40 mg tablet (Pepcid) 40 mg PO DAILY 05/30/23 08/01/23 05/30/23 08:00 History Exam Airway Mallampati Class: II (missing a couoke teeeth) TM Dist: >3cm Neck ROM: Full Heart: rrr Lungs: cta Assessment and Plan Assessment Anesthesia Assessment: Anesthesia Plan Discussed and Chart Reviewed Final Anesthetic Review Family History of Problems with Anesthesia: No History of Problems with Anesthesia: No NPO: Yes ASA Class: III Final Preanesthetic Review: No Changes in Pt Med Stat, Meds/Allgs Chart Reviewed and Consent Obtained/Reviewed Patient Risk: Intermediate Procedure Risk: Intermediate Anesthetic Plan Anesthetic Plan: GA Disposition: Standard PACU
[2023-09-09 06:46] VITALS: BP 126/53; PULSE 63; RESP 18; TEMP 36.6; O2SAT 98
[2023-09-09] MEDS: Lactated Ringers 1,000 ML 50 ML IVCONT (06:48)
--- NOTE | 2023-09-09 06:54 | MHC.SHP ---
Pre-Procedural Eval Section A - 24 Hr Update-Section A only Date of Service: 09/09/23 The patient is an INPATIENT: No Changes since office visit: Yes Cold of Flu in the past 2 weeks, Yes New Medical Problems, Yes Changes in Medication and Yes Patient answered all questions The patient has been examined within 24 hours of the surgical procedure. The History & Physical has been completed within 30 days and I have reviewed it.: No Section B - Complete if H&P > 30 days Chief Complaint: depression Allergies: Allergies Allergy/AdvReac Type Severity Reaction Status Date / Time tomato [TOMATO] Allergy Severe ANAPHYLAXIS Verified 08/07/23 08:24 Sulfa (Sulfonamide Allergy Intermediate [place], ROBLES Verified 08/07/23 08:24 Antibiotics) albuterol Allergy Unknown Unknown Verified 08/07/23 08:24 metoclopramide [Reglan] Allergy Unknown Unknown Verified 08/07/23 08:24 quetiapine [From Seroquel] AdvReac Severe Hallucinati Verified 08/07/23 08:24 ons Plan I have reviewed the history and physical and performed a pertinent physical examination on my patient. No changes have occurred unless specified. Time Spent With Patient Time: Total time managing care of this patient today ____ minutes.
--- NOTE | 2023-09-09 07:11 | HO.ECTPROC ---
ECT Procedure Note Diagnosis/Treatment Date of Service: 09/09/23 Diagnosis: Major Depressive Disorder Previous ECT Date: 08/14/23 Treatment: Maintenance Interval Clinical Notes: The patient reported euthymia. Recently, Gabapentin was added at night. No side effects with previous ECT. ECT done as usual, no complications, woke up well. Time: Total time managing care of this patient today __30__ minutes. ECT Settings Device: THYMATRON DGx Electrode Placement: Right Unilateral Program/Pulse Width: 0.25 Energy Percent: 100 Seizure Duration By EEG (in seconds): 45 By Motor Observation (in seconds): 31 Medications Administration General Anesthetic: Etomidate (12) Muscle Relaxant: Succinylcholine (80) Ancillary Medications Anti-emetics: Zofran - Pre ECT Airway Management Airway Management: Bag Mask Ventilation Treatment Recommendations No Changes Recommended: No change Pt Tolerated Procedure w/o Issue: Yes
[2023-09-09 07:15] VITALS: BP 179/77; PULSE 56; RESP 16; TEMP 36.7; O2SAT 100
[2023-09-09 07:20] VITALS: BP 160/74; PULSE 77; RESP 18; O2SAT 100
[2023-09-09 07:25] VITALS: BP 159/65; PULSE 71; RESP 18; O2SAT 97
[2023-09-09 07:30] VITALS: BP 142/75; PULSE 68; RESP 18; O2SAT 96
[2023-09-09 07:47] VITALS: BP 126/66; PULSE 73; RESP 17; TEMP 36.7; O2SAT 96
== END 2023-09-09 08:08 | disposition home or self-care (01) ==
PROVIDERS: PCP Internal Medicine; Visit Provider Psychiatry & Neurology Psychiatry
PROC: (CPT 90870; principal; 2023-09-09 08:30)
DX: F33.2 Major depressive disorder, recurrent severe without psychotic features (principal); G20.A1 Parkinson's disease without dyskinesia, without mention of fluctuations; J44.9 Chronic obstructive pulmonary disease, unspecified; E78.5 Hyperlipidemia, unspecified; N18.30 Chronic kidney disease, stage 3 unspecified; M79.7 Fibromyalgia; Z79.899 Other long term (current) drug therapy; Z88.2 Allergy status to sulfonamides; Z88.8 Allergy status to other drugs, medicaments and biological substances
CPT/HCPCS: 90870; J0330; J2405

== ENCOUNTER → 2023-09-09 06:03 | Outpatient (BNV) | payer MEDICARE, SELFPAY | PROVIDERS: PCP Internal Medicine; Visit Provider Psychiatry & Neurology Psychiatry | DX: F33.3 Major depressive disorder, recurrent, severe with psychotic symptoms (principal) | CPT/HCPCS: 90870 ==

== ENCOUNTER 2023-09-23 13:54 | Outpatient (AMB) | payer MEDICARE, MEDICAID, SELFPAY ==
[2023-09-23 13:58] VITALS: BP 140/72; PULSE 90; BMI 19.2
--- NOTE | 2023-09-23 13:58 | A.OFFVIS_ITS ---
Vital Signs 09/23/23 13:58 Height 5 ft 6 in Weight 119 lb 0.794 oz BMI 19.2 BP 140/72 H Blood Pressure Location Lt brachial Position Sitting Pulse 90 Pulse Source Pulse Oximeter Intake Visit Reasons: Age-related osteoporosis/LVM Intake Note: Patient present today for age-related osteoporosis follow up visit. [employer] [facility] Consultant Required: No Accompanied by: Friend Allergies tomato [TOMATO] Allergy (Severe, Verified 09/23/23 14:03) ANAPHYLAXIS Sulfa (Sulfonamide Antibiotics) Allergy (Intermediate, Verified 09/23/23 14:03) TRAVIS davis albuterol Allergy (Unknown, Verified 09/23/23 14:03) Unknown metoclopramide [Reglan] Allergy (Unknown, Verified 09/23/23 14:03) Unknown quetiapine [From Seroquel] Adverse Reaction (Severe, Verified 09/23/23 14:03) Hallucinations Medication List - Last Reconciled 09/23/23 by Jagjit Walsh MD albuterol sulfate 90 mcg/actuation (ProAir HFA) 2 puffs inhalation Q6H PRN benzocaine-menthol 15-3.6 mg (Sore Throat (benzocaine with menthol)) 1 isidoro mucous membrane DAILY 30 days bupropion HCl XL 300 mg PO QAM carbidopa-levodopa 25-100 mg 1.5 tabs PO QID 30 days famotidine (Pepcid) 40 mg PO DAILY gabapentin 1-3 caps orally bedtime; paroxetine HCl 40 mg PO DAILY trazodone 25 - 50 mg (0.5 - 1 x 50 mg) PO BEDTIME MRX1 PRN 30 days HPI Comments Details: This 73-year-old white female previously followed by Dr. Kiser endocrinology for hyperparathyroidism. Recently, patient had hypercalcemia. Her recent DEXA showed substantial decreases in bone density as shown below. Her 25- vitamin-D level has been normal FINDINGS: LEFT FEMUR, NECK: Current: BMD 0.662 g/cm2, Z-score -1.5, T-score -2.7, osteoporosis. Baseline: BMD 0.836 g/cm2. LEFT FEMUR, TOTAL: Current: BMD 0.597 g/cm2, Z-score -2.3, T-score -3.3, osteoporosis, 29.9% decrease from baseline (<5% change is not significant). Baseline: BMD 0.852 g/cm2. AP SPINE L1-L4: Current: BMD 0.795 g/cm2, Z-score -2.4, T-score -3.2, osteoporosis, 20.1% decrease from baseline (<5% change is not significant). Baseline: BMD 0.995 g/cm2. LEFT FOREARM RADIUS 33%: BMD 0.622 g/cm2, Z-score -0.9, T-score -2.9, osteoporosis. [facility] Medical History (Updated 09/14/23 @ 02:49 by Diamond Montgomery MD) Osteoporosis Restless legs syndrome (RLS) Parkinson's disease without dyskinesia or fluctuating manifestations History of uterine cancer Parkinson's disease without dyskinesia Sleep disorder Anemia CKD (chronic kidney disease), stage III PTSD (post-traumatic stress disorder) Hyperparathyroidism Family history of malignant neoplasm of endometrium Polycystic kidney disease Multinodular thyroid Back pain GERD (gastroesophageal reflux disease) Chronic fatigue IBS (irritable bowel syndrome) Fibromyalgia COPD (chronic obstructive pulmonary disease) Surgical History Hx laparoscopic cholecystectomy History of esophagogastroduodenoscopy (EGD) H/O colonoscopy History of left breast biopsy Hx of cholecystectomy History of sinus surgery History of carpal tunnel syndrome History of total abdominal hysterectomy Family History Father COPD (chronic obstructive pulmonary disease) Mother Arteriosclerosis Breast cancer, Onset Age: 80 Sister Diabetes mellitus Breast cancer, Onset Age: 70 Brother Bone cancer History of pituitary cancer Social History Household Members: None Housing: House Do you presently have visiting nurse or other home services: No Unable to assess alcohol history related to: Refusing to respond Alcohol intake: never Patient Tobacco Use Status: Never used Tobacco e-Cigarette/Vaping Use: Never Used service: No Current occupational status: unemployed Sexual orientation: Straight/Heterosexual Cognitive needs: No Hearing needs: No Vision needs: Yes Assessment & Plan Assessment & Plan (1) Hyperparathyroidism: Comment: ff'd by dr kiser Code(s): E21.3 - Hyperparathyroidism, unspecified Category: Medical Plan: This is a 73-year-old white female with a history of what appears to be primary hyperparathyroidism with moderate to severe osteoporosis in the setting of CKD stage 3. Workup seems consistent with primary hyperparathyroidism as patient has had intermittent hypercalcemia with elevated PTH Will check 24 hour urine for calcium and creatinine as well as serum creatinine Will talk to patient about possible treatment which could include parathyroid exploration versus use of an oral bisphosphonate. Or Prolia. If the discussion with patient and her daughter, they have agreed to see Dr. Flores for possible surgical consultation for parathyroidectomy. We will also repeat 25 hydroxy vitamin-D, calcium, albumin, PTH. If patient is deemed not to be a surgical candidate decides not to have parathyroid surgery, she would be a candidate for treatment of osteoporosis with either oral bisphosphonate or Prolia Orders: Orders Parathyroid Hormone Intact Today E21.3 - Hyperparathyroidism, unspecified Vitamin D 25-OH Total Today E21.3 - Hyperparathyroidism, unspecified Calcium, 24 Hr Ur Today E21.3 - Hyperparathyroidism, unspecified Calcium, Ionized Today E21.3 - Hyperparathyroidism, unspecified Creatinine Today E21.3 - Hyperparathyroidism, unspecified Calcium Today E21.3 - Hyperparathyroidism, unspecified Creatinine, 24 Hr Group Today E21.3 - Hyperparathyroidism, unspecified Referrals General Surgery Referral E21.3 - Hyperparathyroidism, unspecified Coding Level of Care Code Est Pt Level 3 (00794) Diagnoses Hyperparathyroidism E21.3
== END 2023-09-23 14:37 | disposition home or self-care (01) ==
PROVIDERS: PCP Internal Medicine; Visit Provider Internal Medicine Endocrinology, Diabetes & Metabolism
DX: E21.3 Hyperparathyroidism, unspecified (principal)
CPT/HCPCS: 99213

== ENCOUNTER → 2023-09-23 13:54 | Outpatient (BNVA) | payer MEDICARE, SELFPAY | PROVIDERS: PCP Internal Medicine; Visit Provider Internal Medicine Endocrinology, Diabetes & Metabolism | DX: E21.3 Hyperparathyroidism, unspecified (principal) | CPT/HCPCS: 99212 ==

== ENCOUNTER 2023-09-24 11:33 | Outpatient (REF) | payer MEDICARE, MEDICAID, SELFPAY ==
[2023-09-24 13:25] LABS: Estimated Glomerular Filt Rate 38
[2023-09-24 13:46] LABS: Vitamin D 25-OH Total 48.4 ng/mL (>30)
[2023-09-24 13:50] LABS: Parathyroid Hormone Intact 105.7 pg/mL (8.7-77.1)
[2023-09-25 14:38] LABS: Calcium, Ionized 5.3 mg/dL (4.7-5.5)
== END 2023-09-24 11:34 | disposition home or self-care (01) ==
LOC: HO.HMGCLDS 11:33
PROVIDERS: PCP Internal Medicine; Visit Provider Internal Medicine Endocrinology, Diabetes & Metabolism
DX: E21.3 Hyperparathyroidism, unspecified (principal)
CPT/HCPCS: 36415; 82306; 82310; 82330; 82565; 83970

== ENCOUNTER 2023-09-26 08:30 | Outpatient (REF) | payer MEDICARE, MEDICAID, SELFPAY ==
[2023-09-26 13:52] LABS: Creatinine, mg/dL 106.32
[2023-09-26 13:58] LABS: Creatinine, 24Hr Urine 0.7 G/Day (1.0-2.0); Total Volume 24 Hour Urine 700 mL
[2023-09-27 16:48] LABS: Calcium, 24 Hr Urine 76 mg/24 h; Calcium/Creatinine Ratio 104 mg/g creat (30-275); Creatinine 24Hr Urine 0.73 g/24 h (0.50-2.15)
== END 2023-09-26 08:31 | disposition home or self-care (01) ==
LOC: HO.HMGCLNP 08:30
PROVIDERS: PCP Internal Medicine; Visit Provider Internal Medicine Endocrinology, Diabetes & Metabolism
DX: E21.3 Hyperparathyroidism, unspecified (principal)
CPT/HCPCS: 82340; 82570

== ENCOUNTER 2023-10-14 05:54 | Day surgery (SDC) | payer MEDICARE, OTHER, SELFPAY ==
[2023-10-14] VITALS (7 sets, daily range): BP systolic 129–177; BP diastolic 62–82; PULSE 59–91; RESP 12–17; TEMP 36.2–36.7; O2SAT 98–100; BMI 18.6
--- NOTE | 2023-10-14 06:59 | MHC.SHP ---
Pre-Procedural Eval Section A - 24 Hr Update-Section A only Date of Service: 10/14/23 The patient is an INPATIENT: No Changes since office visit: No Cold of Flu in the past 2 weeks, No New Medical Problems, No Changes in Medication and No Patient answered all questions The patient has been examined within 24 hours of the surgical procedure. The History & Physical has been completed within 30 days and I have reviewed it.: Yes Section B - Complete if H&P > 30 days Chief Complaint: Major depressive disorder, recurrent, severe with Details of Present Illness: Reports been stable, euthymic, no change on medications Relevant Family History (Specify if Yes): No Relevant Social History: None Present Medications: see Short Stay Collaborative assessment Medical History: No relevant PMH History of Previous Operations: No relevant previous surgery Allergies: Allergies Allergy/AdvReac Type Severity Reaction Status Date / Time tomato [TOMATO] Allergy Severe ANAPHYLAXIS Verified 09/23/23 14:03 Sulfa (Sulfonamide Allergy Intermediate shaky, ROBLES Verified 09/23/23 14:03 Antibiotics) albuterol Allergy Unknown Unknown Verified 09/23/23 14:03 metoclopramide [Reglan] Allergy Unknown Unknown Verified 09/23/23 14:03 quetiapine [From Seroquel] AdvReac Severe Hallucinati Verified 09/23/23 14:03 ons Review of Systems Sugical H&P ROS: Negative: Constitution, Cardiovascular, Respiratory, Neurological, Psychiatric, Hem-Onc, Allergic/Immunologic, Gastrointestinal, Genitourinary, Musculoskeletal, Integumentary, Endocrine and Eyes/Ears/Nose/Throat Exam Surgical H&P Exam: Normal: HEENT, Normal: Heart, Normal: Lungs, Normal: Extremities, Normal: Abdomen, Normal: Skin and Normal: Neurological Plan Diagnosis/Plan: Unchanged I have reviewed the history and physical and performed a pertinent physical examination on my patient. No changes have occurred unless specified. Time Spent With Patient Time: Total time managing care of this patient today __20__ minutes.
--- NOTE | 2023-10-14 07:24 | HO.ECTPROC ---
ECT Procedure Note Diagnosis/Treatment Date of Service: 10/14/23 Diagnosis: Major Depressive Disorder Previous ECT Date: 09/09/23 Treatment: Maintenance Interval Clinical Notes: The patient reporeted euthymia, no changes on her medications. No side effects with previous ECT. ECT done as usual, no complications, woke up well. Time: Total time managing care of this patient today ____ minutes. ECT Settings Device: THYMATRON DGx Electrode Placement: Right Unilateral Program/Pulse Width: 0.25 Energy Percent: 100 Seizure Duration By EEG (in seconds): 51 By Motor Observation (in seconds): 37 Medications Administration General Anesthetic: Etomidate (12) Muscle Relaxant: Succinylcholine (80) Airway Management Airway Management: Bag Mask Ventilation Treatment Recommendations No Changes Recommended: No change Pt Tolerated Procedure w/o Issue: Yes
--- NOTE | 2023-10-14 08:29 | HO.ANESPROP2 ---
HPI - Anesthesia Eval Consult details Narrative: 73 yo female patient for ECT PMFSH Active Problems Active Problems: All Active Problems Osteoporosis (Acute) Restless legs syndrome (RLS) (Acute) Parkinson's disease without dyskinesia or fluctuating manifestations (Acute) Major neurocognitive disorder due to another medical condition, with psychotic disturbance (Acute) Major depression with psychotic features (Acute) Parkinson's disease without dyskinesia (Acute) Environmental allergies (Acute) Sleep disorder (Acute) Anemia (Acute) COPD (chronic obstructive pulmonary disease) (Acute) CKD (chronic kidney disease), stage III (Acute) PTSD (post-traumatic stress disorder) (Acute) Hyperparathyroidism (Acute) Multinodular thyroid (Acute) Past Medical History Medical History Osteoporosis Restless legs syndrome (RLS) Parkinson's disease without dyskinesia or fluctuating manifestations History of uterine cancer Parkinson's disease without dyskinesia Sleep disorder Anemia CKD (chronic kidney disease), stage III PTSD (post-traumatic stress disorder) Hyperparathyroidism Family history of malignant neoplasm of endometrium Polycystic kidney disease Multinodular thyroid Back pain GERD (gastroesophageal reflux disease) Chronic fatigue IBS (irritable bowel syndrome) Fibromyalgia COPD (chronic obstructive pulmonary disease) Family History Family History Father COPD (chronic obstructive pulmonary disease) Mother Arteriosclerosis Breast cancer, Onset Age: 80 Sister Diabetes mellitus Breast cancer, Onset Age: 70 Brother Bone cancer History of pituitary cancer Family history of problems with anesthesia: No Surgical History Surgical History Hx laparoscopic cholecystectomy History of esophagogastroduodenoscopy (EGD) H/O colonoscopy History of left breast biopsy Hx of cholecystectomy History of sinus surgery History of carpal tunnel syndrome History of total abdominal hysterectomy History of Problems with Anesthesia: No Social History Social History Household Members: None Housing: House Do you presently have visiting nurse or other home services: No Unable to assess alcohol history related to: Refusing to respond Alcohol intake: never Patient Tobacco Use Status: Never used Tobacco e-Cigarette/Vaping Use: Never Used Advance Directives: No Advance Directives Information Provided: Yes service: No Current occupational status: unemployed Sexual orientation: Straight/Heterosexual Cognitive needs: No Hearing needs: No Vision needs: Yes Meds Allergies Allergy/AdvReac Type Severity Reaction Status Date / Time tomato [TOMATO] Allergy Severe ANAPHYLAXIS Verified 09/23/23 14:03 Sulfa (Sulfonamide Allergy Intermediate susan ROBLES Verified 09/23/23 14:03 Antibiotics) albuterol Allergy Unknown Unknown Verified 09/23/23 14:03 metoclopramide [Reglan] Allergy Unknown Unknown Verified 09/23/23 14:03 quetiapine [From Seroquel] AdvReac Severe Hallucinati Verified 09/23/23 14:03 ons Home Medications ?Medication ?Instructions ?Recorded ?Confirmed ?Last Taken ?Type bupropion HCl 300 mg 24 hr tablet, 300 mg PO QAM 02/22/20 08/01/23 05/30/23 08:00 History extended release paroxetine HCl 40 mg tablet 40 mg PO DAILY 04/13/23 08/01/23 05/30/23 08:00 History famotidine 40 mg tablet (Pepcid) 40 mg PO DAILY 05/30/23 08/01/23 05/30/23 08:00 History Exam Height,Weight and Vital Signs: Height 5 ft 6 in Weight 52.163 kg Last Vital Signs Temp 98.1 F 10/14/23 07:23 Pulse 66 10/14/23 08:08 Resp 13 10/14/23 08:08 BP 141/62 H 10/14/23 08:08 Pulse Ox 98 10/14/23 08:08 O2 Del Method Room Air 10/14/23 08:08 O2 Flow Rate 2 10/14/23 07:53 Airway Mallampati Class: III (Small mouth) TM Dist: >3cm Neck ROM: Full Loose/Missing/Broken Teeth: Yes (Many missing teeth) Heart: RRR Lungs: CTAB Assessment and Plan Assessment Anesthesia Assessment: Anesthesia Plan Discussed and Chart Reviewed Final Anesthetic Review Family History of Problems with Anesthesia: No History of Problems with Anesthesia: No NPO: Yes ASA Class: III Final Preanesthetic Review: No Changes in Pt Med Stat, Meds/Allgs Chart Reviewed, Consent Obtained/Reviewed and Anes Risks/Benef Reviewed Patient Risk: Intermediate Procedure Risk: Intermediate Assessment/Block/Sedation in SS: Assess/Block/Sedation- Anesthetic Plan Anesthetic Plan: GA Disposition: Standard PACU
== END 2023-10-14 08:34 | disposition home or self-care (01) ==
PROVIDERS: PCP Internal Medicine; Visit Provider Psychiatry & Neurology Psychiatry
PROC: (CPT 90870; principal; 2023-10-14 08:00)
DX: F33.3 Major depressive disorder, recurrent, severe with psychotic symptoms (principal); G20.A1 Parkinson's disease without dyskinesia, without mention of fluctuations; J44.9 Chronic obstructive pulmonary disease, unspecified; E78.5 Hyperlipidemia, unspecified; N18.31 Chronic kidney disease, stage 3a; M79.7 Fibromyalgia; D63.1 Anemia in chronic kidney disease; Z79.899 Other long term (current) drug therapy; Z88.2 Allergy status to sulfonamides; Z88.8 Allergy status to other drugs, medicaments and biological substances; Z90.49 Acquired absence of other specified parts of digestive tract; Z98.890 Other specified postprocedural states
CPT/HCPCS: 90870; J0330; J2405

== ENCOUNTER → 2023-10-14 05:54 | Outpatient (BNV) | payer MEDICARE, SELFPAY | PROVIDERS: PCP Internal Medicine; Visit Provider Psychiatry & Neurology Psychiatry | DX: F33.3 Major depressive disorder, recurrent, severe with psychotic symptoms (principal) | CPT/HCPCS: 90870 ==

== ENCOUNTER 2023-10-21 15:00 | Outpatient (REF) | payer MEDICARE, SELFPAY ==
[2023-10-21 16:57] LABS: Anion Gap 11 (12-20); Blood Urea Nitrogen 26 mg/dL (9-16); Carbon Dioxide 28 mmol/L (22-29); Chloride 107 mmol/L (96-108); Estimated Glomerular Filt Rate 42; Potassium 3.8 mmol/L (3.3-5.1); Sodium 142 mmol/L (135-145)
== END 2023-10-21 15:01 | disposition home or self-care (01) ==
LOC: HO.HMGCLDS 15:00
PROVIDERS: PCP Internal Medicine; Visit Provider Internal Medicine Nephrology
DX: N18.31 Chronic kidney disease, stage 3a (principal)
CPT/HCPCS: 36415; 80051; 82310; 82565; 84520

== ENCOUNTER 2023-10-25 11:03 | Outpatient (AMB) | payer MEDICARE, MEDICAID, SELFPAY ==
[2023-10-25 11:32] VITALS: BP 130/68; PULSE 60; O2SAT 98; BMI 19.7
--- NOTE | 2023-10-25 11:32 | HO.NEPHOV ---
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 She has had a major depressive disorder and was in the hospital needing ECT. She has polycystic kidney disease. She has not had any renal functions checked for some time. She denies any flank pain, night sweats, weight loss, hematuria, pedal edema, headache, visual disturbances, chest pain, shortness of breath, nausea, vomiting or any other urinary symptoms. Her tremors are well controlled with the current dose of carbidopa/levodopa. She tries to maintain good hydration and avoids nonsteroidal anti-inflammatory medications. Her blood pressure has been at goal. [facility] Medical History (Updated 10/25/23 @ 11:46 by Dante Power MD) Osteoporosis Restless legs syndrome (RLS) Parkinson's disease without dyskinesia or fluctuating manifestations History of uterine cancer Parkinson's disease without dyskinesia Sleep disorder Anemia CKD (chronic kidney disease), stage III PTSD (post-traumatic stress disorder) Hyperparathyroidism Family history of malignant neoplasm of endometrium Polycystic kidney disease Multinodular thyroid Back pain GERD (gastroesophageal reflux disease) Chronic fatigue IBS (irritable bowel syndrome) Fibromyalgia COPD (chronic obstructive pulmonary disease) Surgical History Hx laparoscopic cholecystectomy History of esophagogastroduodenoscopy (EGD) H/O colonoscopy History of left breast biopsy Hx of cholecystectomy History of sinus surgery History of carpal tunnel syndrome History of total abdominal hysterectomy Family History Father COPD (chronic obstructive pulmonary disease) Mother Arteriosclerosis Breast cancer, Onset Age: 80 Sister Diabetes mellitus Breast cancer, Onset Age: 70 Brother Bone cancer History of pituitary cancer Social History Household Members: None Housing: House Do you presently have visiting nurse or other home services: No Unable to assess alcohol history related to: Refusing to respond Alcohol intake: never Patient Tobacco Use Status: Never used Tobacco e-Cigarette/Vaping Use: Never Used service: No Current occupational status: unemployed Sexual orientation: Straight/Heterosexual Cognitive needs: No Hearing needs: No Vision needs: Yes Review of Systems Const All systems reviewed & are unremarkable except as noted in HPI and below Physical Exam Vital Signs: Last Vital Signs Pulse 60 10/25/23 11:32 BP 130/68 10/25/23 11:32 Pulse Ox 98 10/25/23 11:32 Oxygen Delivery Method Room Air 10/25/23 11:32 BMI result Body Mass Index 19.7 Const General: comfortable and no acute distress Orientation/consciousness: patient oriented x3 HEENT Head: Yes normocephalic Mouth: Normal oral and palatal mucosa present Eyes EOM: EOMs intact bilaterally Neck Neck: Yes supple Resp Auscultation: clear to auscultation bilaterally Cardio Jugular venous distension: no JVD Rate: regular rate GI Palpation (GI): Soft to palpation Auscultation: normal bowel sounds General: Yes no CVA tenderness Back/Spine/Pelvis Back: no CVA tenderness Skin General skin exam: no rashes or lesions noted Neuro General: patient oriented x3 and moves all extremities Extrem General: Yes no pedal edema Results Reviewed Nephrology Results: Sodium 142 mmol/L (135-145) 10/21/23 Potassium 3.8 mmol/L (3.3-5.1) 10/21/23 Chloride 107 mmol/L (96-108) 10/21/23 Carbon Dioxide 28 mmol/L (22-29) 10/21/23 BUN 26 mg/dL (9-16) H 10/21/23 Creatinine 1.26 mg/dL (0.5-1.4) 10/21/23 Calcium 10.0 mg/dL (8.4-10.2) 10/21/23 PTH Intact 105.7 pg/mL (8.7-77.1) H 09/24/23 Assessment & Plan Assessment & Plan (1) CKD (chronic kidney disease), stage III: Code(s): N18.30 - Chronic kidney disease, stage 3 unspecified Category: Medical Qualifiers: Chronic kidney disease stage 3 subtype: stage 3a (GFR 45-59) Qualified Code(s): N18.31 - Chronic kidney disease, stage 3a (2) Polycystic kidney disease: Code(s): Q61.3 - Polycystic kidney, unspecified Category: Medical Plan Lien has CKD from polycystic kidney disease. She has history of microscopic hematuria and nephrolithiasis. She has no history of proteinuria. Blood pressure has been at goal. She has no flank pain, pedal edema. She does not take any nonsteroidal anti-inflammatory medications. She may need MRI to assess the status of renal cyst. She has no history of any CVA in the family. She should maintain good hydration. I did not make any medication changes today. All questions answered. Follow-up given. Orders: Orders Vitamin D 25-OH Total Today N18.31 - Chronic kidney disease, stage 3a, Q61.3 - Polycystic kidney, unspecified Blood Urea Nitrogen Today N18.31 - Chronic kidney disease, stage 3a, Q61.3 - Polycystic kidney, unspecified Phosphorus Today N18.31 - Chronic kidney disease, stage 3a, Q61.3 - Polycystic kidney, unspecified Creatinine Today N18.31 - Chronic kidney disease, stage 3a, Q61.3 - Polycystic kidney, unspecified Electrolytes Today N18.31 - Chronic kidney disease, stage 3a, Q61.3 - Polycystic kidney, unspecified Calcium Today N18.31 - Chronic kidney disease, stage 3a, Q61.3 - Polycystic kidney, unspecified Parathyroid Hormone Intact Today N18.31 - Chronic kidney disease, stage 3a, Q61.3 - Polycystic kidney, unspecified Coding Level of Care Code Est Pt Level 4 (22993) Diagnoses Stage 3a chronic kidney disease N18.31 Chronic kidney disease stage 3 subtype: stage 3a (GFR 45-59) Polycystic kidney disease Q61.3
== END 2023-10-25 11:51 | disposition home or self-care (01) ==
PROVIDERS: PCP Internal Medicine; Visit Provider Internal Medicine Nephrology
DX: N18.31 Chronic kidney disease, stage 3a (principal); Q61.3 Polycystic kidney, unspecified
CPT/HCPCS: 99214

== ENCOUNTER → 2023-10-25 11:03 | Outpatient (BNVA) | payer MEDICARE, MEDICAID, SELFPAY | PROVIDERS: PCP Internal Medicine; Visit Provider Internal Medicine Nephrology | DX: N18.31 Chronic kidney disease, stage 3a (principal); Q61.3 Polycystic kidney, unspecified | CPT/HCPCS: 99212 ==

== ENCOUNTER 2023-11-13 05:50 | Day surgery (SDC) | payer MEDICARE, MEDICAID, SELFPAY ==
[2023-11-13] VITALS (7 sets, daily range): BP systolic 118–176; BP diastolic 55–90; PULSE 60–73; RESP 16; TEMP 36.1–36.6; O2SAT 96–100; BMI 18.6
--- NOTE | 2023-11-13 06:48 | HO.ANESPROP2 ---
[facility] Active Problems Active Problems: All Active Problems Polycystic kidney disease (Acute) Osteoporosis (Acute) Restless legs syndrome (RLS) (Acute) Parkinson's disease without dyskinesia or fluctuating manifestations (Acute) Major neurocognitive disorder due to another medical condition, with psychotic disturbance (Acute) Major depression with psychotic features (Acute) Parkinson's disease without dyskinesia (Acute) Environmental allergies (Acute) Sleep disorder (Acute) Anemia (Acute) COPD (chronic obstructive pulmonary disease) (Acute) CKD (chronic kidney disease), stage III (Acute) PTSD (post-traumatic stress disorder) (Acute) Hyperparathyroidism (Acute) Multinodular thyroid (Acute) Past Medical History Medical History (Updated 10/25/23 @ 11:46 by Dante Power MD) Osteoporosis Restless legs syndrome (RLS) Parkinson's disease without dyskinesia or fluctuating manifestations History of uterine cancer Parkinson's disease without dyskinesia Sleep disorder Anemia CKD (chronic kidney disease), stage III PTSD (post-traumatic stress disorder) Hyperparathyroidism Family history of malignant neoplasm of endometrium Polycystic kidney disease Multinodular thyroid Back pain GERD (gastroesophageal reflux disease) Chronic fatigue IBS (irritable bowel syndrome) Fibromyalgia COPD (chronic obstructive pulmonary disease) Family History Family History Father COPD (chronic obstructive pulmonary disease) Mother Arteriosclerosis Breast cancer, Onset Age: 80 Sister Diabetes mellitus Breast cancer, Onset Age: 70 Brother Bone cancer History of pituitary cancer Family history of problems with anesthesia: No Surgical History Surgical History Hx laparoscopic cholecystectomy History of esophagogastroduodenoscopy (EGD) H/O colonoscopy History of left breast biopsy Hx of cholecystectomy History of sinus surgery History of carpal tunnel syndrome History of total abdominal hysterectomy History of Problems with Anesthesia: No Social History Social History Household Members: None Housing: House Do you presently have visiting nurse or other home services: No Unable to assess alcohol history related to: Refusing to respond Alcohol intake: never Patient Tobacco Use Status: Never used Tobacco e-Cigarette/Vaping Use: Never Used Advance Directives: No Advance Directives Information Provided: Yes service: No Current occupational status: unemployed Sexual orientation: Straight/Heterosexual Cognitive needs: No Hearing needs: No Vision needs: Yes Meds Allergies Allergy/AdvReac Type Severity Reaction Status Date / Time tomato [TOMATO] Allergy Severe ANAPHYLAXIS Verified 10/25/23 11:35 Sulfa (Sulfonamide Allergy Intermediate TRAVIS davis Verified 10/25/23 11:35 Antibiotics) albuterol Allergy Unknown Unknown Verified 10/25/23 11:35 metoclopramide [Reglan] Allergy Unknown Unknown Verified 10/25/23 11:35 quetiapine [From Seroquel] AdvReac Severe Hallucinati Verified 10/25/23 11:35 ons Active Medications: Current Medications Lactated Ringer's (Lr) 1,000 mls @ 50 mls/hr IVCONT .Q20H ENZO Home Medications ?Medication ?Instructions ?Recorded ?Confirmed ?Last Taken ?Type bupropion HCl 300 mg 24 hr tablet, 300 mg PO QAM 02/22/20 08/01/23 05/30/23 08:00 History extended release paroxetine HCl 40 mg tablet 40 mg PO DAILY 04/13/23 08/01/23 05/30/23 08:00 History omeprazole 20 mg capsule,delayed 20 mg PO QAM 10/25/23 Unknown History release Exam Height,Weight and Vital Signs: Height 5 ft 6 in Weight 52.163 kg Last Vital Signs Temp 96.9 F 11/13/23 06:30 Pulse 60 11/13/23 06:30 Resp 16 11/13/23 06:30 BP 118/72 11/13/23 06:30 Pulse Ox 98 11/13/23 06:30 O2 Del Method Room Air 11/13/23 06:30 Airway Mallampati Class: II TM Dist: >3cm Neck ROM: Full Heart: rrr Lungs: cta Assessment and Plan Assessment Anesthesia Assessment: Anesthesia Plan Discussed and Chart Reviewed Final Anesthetic Review Family History of Problems with Anesthesia: No History of Problems with Anesthesia: No NPO: Yes ASA Class: III Final Preanesthetic Review: No Changes in Pt Med Stat, Meds/Allgs Chart Reviewed and Consent Obtained/Reviewed Patient Risk: Intermediate Procedure Risk: Intermediate Anesthetic Plan Anesthetic Plan: GA Disposition: Standard PACU
--- NOTE | 2023-11-13 07:03 | MHC.SHP ---
Pre-Procedural Eval Section A - 24 Hr Update-Section A only Date of Service: 11/13/23 The patient is an INPATIENT: No Changes since office visit: No Cold of Flu in the past 2 weeks, No New Medical Problems, No Changes in Medication and No Patient answered all questions The patient has been examined within 24 hours of the surgical procedure. The History & Physical has been completed within 30 days and I have reviewed it.: Yes Section B - Complete if H&P > 30 days Chief Complaint: Major depressive disorder, recurrent, severe with Allergies: Allergies Allergy/AdvReac Type Severity Reaction Status Date / Time tomato [TOMATO] Allergy Severe ANAPHYLAXIS Verified 10/25/23 11:35 Sulfa (Sulfonamide Allergy Intermediate susan, ROBLES Verified 10/25/23 11:35 Antibiotics) albuterol Allergy Unknown Unknown Verified 10/25/23 11:35 metoclopramide [Reglan] Allergy Unknown Unknown Verified 10/25/23 11:35 quetiapine [From Seroquel] AdvReac Severe Hallucinati Verified 10/25/23 11:35 ons Plan I have reviewed the history and physical and performed a pertinent physical examination on my patient. No changes have occurred unless specified. Time Spent With Patient Time: Total time managing care of this patient today ____ minutes.
[2023-11-13] MEDS: Lactated Ringers 1,000 ML 50 ML IVCONT (07:04)
--- NOTE | 2023-11-13 07:35 | HO.ECTPROC ---
ECT Procedure Note Diagnosis/Treatment Date of Service: 11/13/23 Diagnosis: Major Depressive Disorder Previous ECT Date: 10/14/23 Treatment: Maintenance Interval Clinical Notes: The patient reported euthymia, no changes on her treatment, no side effects with previous ECT. ECT done as usual, no complications, woke up well. Time: Total time managing care of this patient today __30__ minutes. ECT Settings Device: THYMATRON DGx Electrode Placement: Right Unilateral Program/Pulse Width: 0.25 Energy Percent: 100 Seizure Duration By EEG (in seconds): 54 By Motor Observation (in seconds): 30 Medications Administration General Anesthetic: Etomidate (12) Muscle Relaxant: Succinylcholine (80) Ancillary Medications Anti-emetics: Zofran - Pre ECT (4) Airway Management Airway Management: Bag Mask Ventilation Treatment Recommendations No Changes Recommended: No change Pt Tolerated Procedure w/o Issue: Yes
== END 2023-11-13 08:55 | disposition home or self-care (01) ==
PROVIDERS: PCP Internal Medicine; Visit Provider Psychiatry & Neurology Psychiatry
PROC: (CPT 90870; principal; 2023-11-13 07:00)
DX: F33.2 Major depressive disorder, recurrent severe without psychotic features (principal); F34.9 Persistent mood [affective] disorder, unspecified; F43.10 Post-traumatic stress disorder, unspecified; G20.A1 Parkinson's disease without dyskinesia, without mention of fluctuations; J44.9 Chronic obstructive pulmonary disease, unspecified; E78.5 Hyperlipidemia, unspecified; N18.30 Chronic kidney disease, stage 3 unspecified; Q61.3 Polycystic kidney, unspecified; D64.9 Anemia, unspecified; M81.0 Age-related osteoporosis without current pathological fracture; R53.82 Chronic fatigue, unspecified; Z85.42 Personal history of malignant neoplasm of other parts of uterus; Z79.899 Other long term (current) drug therapy; Z88.2 Allergy status to sulfonamides; Z88.8 Allergy status to other drugs, medicaments and biological substances
CPT/HCPCS: 90870; J0330; J2405

== ENCOUNTER → 2023-11-13 05:50 | Outpatient (BNV) | payer MEDICARE, MEDICAID, SELFPAY | PROVIDERS: PCP Internal Medicine; Visit Provider Psychiatry & Neurology Psychiatry | DX: F33.2 Major depressive disorder, recurrent severe without psychotic features (principal) | CPT/HCPCS: 90870 ==

== ENCOUNTER 2023-12-18 05:50 | Day surgery (SDC) | payer MEDICARE, MEDICAID, SELFPAY ==
[2023-12-18] VITALS (7 sets, daily range): BP systolic 115–157; BP diastolic 46–76; PULSE 64–90; RESP 12–18; TEMP 36.7; O2SAT 91–100; BMI 18.6
--- NOTE | 2023-12-18 06:12 | ECG_ITS ---
Test Reason : ECT Blood Pressure : / mmHG Vent. Rate : 076 BPM Atrial Rate : 076 BPM P-R Int : 122 ms QRS Dur : 084 ms QT Int : 370 ms P-R-T Axes : 076 035 054 degrees QTc Int : 416 ms Normal sinus rhythm with sinus arrhythmia Nonspecific ST abnormality When compared with ECG of 31-MAY-2023 08:53, No significant change was found Referred By: Dorcas Edwards Electronically Signed By:KOBE GENAO MD
--- NOTE | 2023-12-18 06:44 | HO.ANESPROP2 ---
HPI - Anesthesia Eval Consult details Narrative: For ECT PMFSH Active Problems Active Problems: All Active Problems Major depression in remission (Acute) Polycystic kidney disease (Acute) Osteoporosis (Acute) Restless legs syndrome (RLS) (Acute) Parkinson's disease without dyskinesia or fluctuating manifestations (Acute) Major neurocognitive disorder due to another medical condition, with psychotic disturbance (Acute) Major depression with psychotic features (Acute) Parkinson's disease without dyskinesia (Acute) Environmental allergies (Acute) Sleep disorder (Acute) Anemia (Acute) COPD (chronic obstructive pulmonary disease) (Acute) CKD (chronic kidney disease), stage III (Acute) PTSD (post-traumatic stress disorder) (Acute) Hyperparathyroidism (Acute) Multinodular thyroid (Acute) Past Medical History Medical History (Updated 11/13/23 @ 17:18 by Shadi Shearer MD) Osteoporosis Restless legs syndrome (RLS) Parkinson's disease without dyskinesia or fluctuating manifestations History of uterine cancer Parkinson's disease without dyskinesia Sleep disorder Anemia CKD (chronic kidney disease), stage III PTSD (post-traumatic stress disorder) Hyperparathyroidism Family history of malignant neoplasm of endometrium Polycystic kidney disease Multinodular thyroid Back pain GERD (gastroesophageal reflux disease) Chronic fatigue IBS (irritable bowel syndrome) Fibromyalgia COPD (chronic obstructive pulmonary disease) Family History Family History Father COPD (chronic obstructive pulmonary disease) Mother Arteriosclerosis Breast cancer, Onset Age: 80 Sister Diabetes mellitus Breast cancer, Onset Age: 70 Brother Bone cancer History of pituitary cancer Family history of problems with anesthesia: No Surgical History Surgical History Hx laparoscopic cholecystectomy History of esophagogastroduodenoscopy (EGD) H/O colonoscopy History of left breast biopsy Hx of cholecystectomy History of sinus surgery History of carpal tunnel syndrome History of total abdominal hysterectomy History of Problems with Anesthesia: No Social History Social History Household Members: None Housing: House Do you presently have visiting nurse or other home services: No Unable to assess alcohol history related to: Refusing to respond Alcohol intake: never Patient Tobacco Use Status: Never used Tobacco e-Cigarette/Vaping Use: Never Used Advance Directives: No Advance Directives Information Provided: Yes service: No Current occupational status: unemployed Sexual orientation: Straight/Heterosexual Cognitive needs: No Hearing needs: No Vision needs: Yes Meds Allergies Allergy/AdvReac Type Severity Reaction Status Date / Time tomato [TOMATO] Allergy Severe ANAPHYLAXIS Verified 10/25/23 11:35 Sulfa (Sulfonamide Allergy Intermediate susan, ROBLES Verified 10/25/23 11:35 Antibiotics) albuterol Allergy Unknown Unknown Verified 10/25/23 11:35 metoclopramide [Reglan] Allergy Unknown Unknown Verified 10/25/23 11:35 quetiapine [From Seroquel] AdvReac Severe Hallucinati Verified 10/25/23 11:35 ons Home Medications ?Medication ?Instructions ?Recorded ?Confirmed ?Last Taken ?Type bupropion HCl 300 mg 24 hr tablet, 300 mg PO QAM 02/22/20 08/01/23 05/30/23 08:00 History extended release paroxetine HCl 40 mg tablet 40 mg PO DAILY 04/13/23 08/01/23 05/30/23 08:00 History omeprazole 20 mg capsule,delayed 20 mg PO QAM 10/25/23 Unknown History release Exam Height,Weight and Vital Signs: Height 5 ft 6 in Weight 52.163 kg Last Vital Signs Temp 98.1 F 12/18/23 06:32 Pulse 64 12/18/23 06:32 Resp 16 12/18/23 06:32 BP 132/46 L 12/18/23 06:32 Pulse Ox 100 12/18/23 06:32 O2 Del Method Room Air 12/18/23 06:32 Airway Mallampati Class: II TM Dist: <=3cm Neck ROM: Full Loose/Missing/Broken Teeth: No Heart: ok Lungs: ok Assessment and Plan Assessment Anesthesia Assessment: Anesthesia Plan Discussed and Chart Reviewed Final Anesthetic Review Family History of Problems with Anesthesia: No History of Problems with Anesthesia: No NPO: Yes ASA Class: III Final Preanesthetic Review: No Changes in Pt Med Stat, Meds/Allgs Chart Reviewed, Consent Obtained/Reviewed and Anes Risks/Benef Reviewed Patient Risk: Intermediate Procedure Risk: Intermediate Anesthetic Plan Anesthetic Plan: GA and Agree w/ Assess. and Plan Disposition: Standard PACU
[2023-12-18 06:51] LABS: Hematocrit 30.1 % (37.0-47.0); Hemoglobin 10.2 g/dl (12.0-16.0); Mean Corpuscular HGB Conc 33.9 g/dl (31.0-35.0); Mean Corpuscular Hemoglobin 32.7 pg (27.0-33.0); Mean Corpuscular Volume 96.5 fL (80.0-98.0); Mean Platelet Volume 8.9 fL (9.4-12.3); Platelet Count 200 X10*3/uL (160-400); Red Blood Count 3.12 X10*6/uL (4.20-5.50); Red Cell Distribution Width 11.7 % (11.0-16.0); White Blood Count 8.4 X10*3/uL (4.8-10.8)
--- NOTE | 2023-12-18 07:03 | MHC.SHP ---
Pre-Procedural Eval Section A - 24 Hr Update-Section A only Date of Service: 12/18/23 The patient is an INPATIENT: No Changes since office visit: No Cold of Flu in the past 2 weeks, No New Medical Problems, No Changes in Medication and No Patient answered all questions The patient has been examined within 24 hours of the surgical procedure. The History & Physical has been completed within 30 days and I have reviewed it.: No Section B - Complete if H&P > 30 days Chief Complaint: Major depressive disorder, recurrent, severe with Details of Present Illness: recurrent depression parkinsons past daniels doing well with maint ect Relevant Social History: None Present Medications: see Short Stay Collaborative assessment Allergies: Allergies Allergy/AdvReac Type Severity Reaction Status Date / Time tomato [TOMATO] Allergy Severe ANAPHYLAXIS Verified 10/25/23 11:35 Sulfa (Sulfonamide Allergy Intermediate susan ROBLES Verified 10/25/23 11:35 Antibiotics) albuterol Allergy Unknown Unknown Verified 10/25/23 11:35 metoclopramide [Reglan] Allergy Unknown Unknown Verified 10/25/23 11:35 quetiapine [From Seroquel] AdvReac Severe Hallucinati Verified 10/25/23 11:35 ons Review of Systems Sugical H&P ROS: Negative: Constitution, Cardiovascular, Respiratory and Psychiatric and Yes, Specify: Neurological (tremor) and Gastrointestinal (abd discomfort) Exam Surgical H&P Exam: Normal: Heart and Normal: Lungs and Significant Findings: Neurological (tremor cog nl) Plan Diagnosis/Plan: Unchanged I have reviewed the history and physical and performed a pertinent physical examination on my patient. No changes have occurred unless specified. Time Spent With Patient Time: Total time managing care of this patient today ____ minutes.
--- NOTE | 2023-12-18 07:11 | HO.ECTPROC ---
ECT Procedure Note Diagnosis/Treatment Date of Service: 12/18/23 Diagnosis: Major Depressive Disorder (past hx psychotic fx ) Previous ECT Date: 10/14/23 Treatment: Maintenance Interval Clinical Notes: The patient reported general stable mood no psychosis recent n and v labs orderedhct dec ck iron results to pcp, no changes on her treatment, no side effects with previous ECT. ECT done as usual, no complications, woke up well. Time: Total time managing care of this patient today ____ minutes. ECT Settings Device: THYMATRON DGx Electrode Placement: Right Unilateral Program/Pulse Width: 0.25 Energy Percent: 100 Seizure Duration By EEG (in seconds): 42 Medications Administration General Anesthetic: Etomidate (12) Muscle Relaxant: Succinylcholine (80) Ancillary Medications Anti-emetics: Zofran - Pre ECT (4) Airway Management Airway Management: Bag Mask Ventilation Treatment Recommendations No Changes Recommended: No change Notes: has done well with maint schedule no cognitive changes Pt Tolerated Procedure w/o Issue: Yes
[2023-12-18] MEDS: Acetaminophen 325 MG TABLET 975 MG PO (08:20)
[2023-12-18 08:49] LABS: Alanine Aminotransferase 6 U/L (0-31); Albumin Level 3.9 g/dL (3.5-5.0); Alkaline Phosphatase 68 U/L (39-117); Anion Gap 9 (12-20); Aspartate Amino Transferase 18 U/L (5-31); Bilirubin Total 0.5 mg/dL (0.0-1.0); Blood Urea Nitrogen 20 mg/dL (9-16); Carbon Dioxide 29 mmol/L (22-29); Chloride 107 mmol/L (96-108); Creatinine Clr Calc Pharmacy 33.7; Estimated Glomerular Filt Rate 43; Glucose Random 115 mg/dL (60-115); Iron 31 mcg/dL (30-160); Percent Iron Saturation 11 % (15-50); Potassium 4.5 mmol/L (3.3-5.1); Sodium 140 mmol/L (135-145); Total Iron Binding Capacity 283 mcg/dL (228-428); Total Protein 6.7 g/dL (6.5-8.0); Unsaturated Iron Binding 252 ug/dL
[2023-12-18 09:03] LABS: Ferritin 154 ng/mL (10-250)
[2023-12-18 09:34] LABS: Folate 8.4 ng/mL (> or = 4.0); Vitamin B12 378 pg/mL (200-900)
== END 2023-12-18 08:43 | disposition home or self-care (01) ==
PROVIDERS: Nurse Practitioner; PCP Internal Medicine; Visit Provider Psychiatry & Neurology Psychiatry
PROC: (CPT 90870; principal; 2023-12-18 07:30)
DX: F33.2 Major depressive disorder, recurrent severe without psychotic features (principal); F34.9 Persistent mood [affective] disorder, unspecified; F43.10 Post-traumatic stress disorder, unspecified; G20.A1 Parkinson's disease without dyskinesia, without mention of fluctuations; D64.9 Anemia, unspecified; J44.9 Chronic obstructive pulmonary disease, unspecified; N18.30 Chronic kidney disease, stage 3 unspecified; Q61.3 Polycystic kidney, unspecified; E78.5 Hyperlipidemia, unspecified; M81.0 Age-related osteoporosis without current pathological fracture; Z85.42 Personal history of malignant neoplasm of other parts of uterus; Z79.899 Other long term (current) drug therapy; Z88.2 Allergy status to sulfonamides; Z88.8 Allergy status to other drugs, medicaments and biological substances
CPT/HCPCS: 36415; 80053; 82607; 82728; 82746; 83540; 85027; 90870; 93005; J0330; J2405

== ENCOUNTER → 2023-12-18 05:50 | Outpatient (BNV) | payer MEDICARE, MEDICAID, SELFPAY | PROVIDERS: PCP Internal Medicine; Visit Provider Psychiatry & Neurology Psychiatry | DX: F33.3 Major depressive disorder, recurrent, severe with psychotic symptoms (principal) | CPT/HCPCS: 90870 ==

== ENCOUNTER → 2023-12-18 06:12 | Outpatient (BNV) | payer MEDICARE, MEDICAID, SELFPAY | PROVIDERS: PCP Internal Medicine; Visit Provider Internal Medicine Cardiovascular Disease | DX: R94.31 Abnormal electrocardiogram [ECG] [EKG] (principal) | CPT/HCPCS: 93010 ==

== ENCOUNTER 2024-01-08 05:52 | Day surgery (SDC) | payer MEDICARE, MEDICAID, SELFPAY ==
[2024-01-08] VITALS (7 sets, daily range): BP systolic 122–179; BP diastolic 58–78; PULSE 48–70; RESP 14–16; TEMP 36.4–36.5; O2SAT 100; BMI 21.3
[2024-01-08] MEDS: Lactated Ringers 1,000 ML 100 ML IVCONT (06:47)
--- NOTE | 2024-01-08 06:54 | HO.ANESPROP2 ---
[facility] Active Problems Active Problems: All Active Problems Major depression in remission (Acute) Polycystic kidney disease (Acute) Osteoporosis (Acute) Restless legs syndrome (RLS) (Acute) Parkinson's disease without dyskinesia or fluctuating manifestations (Acute) Major neurocognitive disorder due to another medical condition, with psychotic disturbance (Acute) Major depression with psychotic features (Acute) Parkinson's disease without dyskinesia (Acute) Environmental allergies (Acute) Sleep disorder (Acute) Anemia (Acute) COPD (chronic obstructive pulmonary disease) (Acute) CKD (chronic kidney disease), stage III (Acute) PTSD (post-traumatic stress disorder) (Acute) Hyperparathyroidism (Acute) Multinodular thyroid (Acute) Past Medical History Medical History (Updated 11/13/23 @ 17:18 by Shadi Shearer MD) Osteoporosis Restless legs syndrome (RLS) Parkinson's disease without dyskinesia or fluctuating manifestations History of uterine cancer Parkinson's disease without dyskinesia Sleep disorder Anemia CKD (chronic kidney disease), stage III PTSD (post-traumatic stress disorder) Hyperparathyroidism Family history of malignant neoplasm of endometrium Polycystic kidney disease Multinodular thyroid Back pain GERD (gastroesophageal reflux disease) Chronic fatigue IBS (irritable bowel syndrome) Fibromyalgia COPD (chronic obstructive pulmonary disease) Family History Family History Father COPD (chronic obstructive pulmonary disease) Mother Arteriosclerosis Breast cancer, Onset Age: 80 Sister Diabetes mellitus Breast cancer, Onset Age: 70 Brother Bone cancer History of pituitary cancer Family history of problems with anesthesia: No Surgical History Surgical History Hx laparoscopic cholecystectomy History of esophagogastroduodenoscopy (EGD) H/O colonoscopy History of left breast biopsy Hx of cholecystectomy History of sinus surgery History of carpal tunnel syndrome History of total abdominal hysterectomy History of Problems with Anesthesia: No Social History Social History Household Members: None Housing: House Do you presently have visiting nurse or other home services: No Unable to assess alcohol history related to: Refusing to respond Alcohol intake: never Patient Tobacco Use Status: Never used Tobacco e-Cigarette/Vaping Use: Never Used Advance Directives: No Advance Directives Information Provided: Yes service: No Current occupational status: unemployed Sexual orientation: Straight/Heterosexual Cognitive needs: No Hearing needs: No Vision needs: Yes Meds Allergies Allergy/AdvReac Type Severity Reaction Status Date / Time tomato [TOMATO] Allergy Severe ANAPHYLAXIS Verified 10/25/23 11:35 Sulfa (Sulfonamide Allergy Intermediate susan ROBLES Verified 10/25/23 11:35 Antibiotics) albuterol Allergy Unknown Unknown Verified 10/25/23 11:35 metoclopramide [Reglan] Allergy Unknown Unknown Verified 10/25/23 11:35 quetiapine [From Seroquel] AdvReac Severe Hallucinati Verified 10/25/23 11:35 ons Active Medications: Current Medications Lactated Ringer's (Lr) 1,000 mls @ 100 mls/hr IVCONT .Q10H ENZO Last Admin: 01/08/24 06:47 Dose: 100 mls/hr Home Medications ?Medication ?Instructions ?Recorded ?Confirmed ?Last Taken ?Type bupropion HCl 300 mg 24 hr tablet, 300 mg PO QAM 02/22/20 08/01/23 05/30/23 08:00 History extended release paroxetine HCl 40 mg tablet 40 mg PO DAILY 04/13/23 08/01/23 05/30/23 08:00 History omeprazole 20 mg capsule,delayed 20 mg PO QAM 10/25/23 Unknown History release Exam Height,Weight and Vital Signs: Height 5 ft 3 in Weight 54.431 kg Last Vital Signs Temp 97.6 F 01/08/24 06:44 Pulse 61 01/08/24 06:44 Resp 14 01/08/24 06:44 BP 122/58 L 01/08/24 06:44 Pulse Ox 100 01/08/24 06:44 O2 Del Method Room Air 01/08/24 06:44 Airway Mallampati Class: II (missing multiple teeth) TM Dist: >3cm Neck ROM: Full Heart: rrr Lungs: cta Assessment and Plan Assessment Anesthesia Assessment: Anesthesia Plan Discussed and Chart Reviewed Final Anesthetic Review Family History of Problems with Anesthesia: No History of Problems with Anesthesia: No NPO: Yes ASA Class: III Final Preanesthetic Review: No Changes in Pt Med Stat, Meds/Allgs Chart Reviewed and Consent Obtained/Reviewed Patient Risk: Intermediate Procedure Risk: Low Anesthetic Plan Anesthetic Plan: GA Disposition: Standard PACU
--- NOTE | 2024-01-08 07:14 | MHC.SHP ---
Pre-Procedural Eval Section A - 24 Hr Update-Section A only Date of Service: 01/08/24 The patient is an INPATIENT: No Changes since office visit: No Cold of Flu in the past 2 weeks, No New Medical Problems, No Changes in Medication and No Patient answered all questions The patient has been examined within 24 hours of the surgical procedure. The History & Physical has been completed within 30 days and I have reviewed it.: Yes Section B - Complete if H&P > 30 days Chief Complaint: Major depressive disorder, recurrent, severe with Details of Present Illness: pt mood is pretty good. no change in medical hx, no complaints Medical History: No relevant PMH Allergies: Allergies Allergy/AdvReac Type Severity Reaction Status Date / Time tomato [TOMATO] Allergy Severe ANAPHYLAXIS Verified 10/25/23 11:35 Sulfa (Sulfonamide Allergy Intermediate TRAVIS davis Verified 10/25/23 11:35 Antibiotics) albuterol Allergy Unknown Unknown Verified 10/25/23 11:35 metoclopramide [Reglan] Allergy Unknown Unknown Verified 10/25/23 11:35 quetiapine [From Seroquel] AdvReac Severe Hallucinati Verified 10/25/23 11:35 ons Review of Systems Sugical H&P ROS: Negative: Constitution, Cardiovascular, Respiratory, Psychiatric, Gastrointestinal and Musculoskeletal Exam Surgical H&P Exam: Normal: Heart and Normal: Lungs Plan Diagnosis/Plan: Unchanged I have reviewed the history and physical and performed a pertinent physical examination on my patient. No changes have occurred unless specified. Time Spent With Patient Time: Total time managing care of this patient today ____ minutes.
--- NOTE | 2024-01-08 07:19 | HO.ECTPROC ---
ECT Procedure Note Diagnosis/Treatment Date of Service: 01/08/24 Diagnosis: Major Depressive Disorder Previous ECT Date: 12/18/23 Treatment: Maintenance Interval Clinical Notes: pt reports mood is pretty good stable Time: Total time managing care of this patient today ____ minutes. ECT Settings Device: THYMATRON DGx Electrode Placement: Right Unilateral Program/Pulse Width: 0.25 Energy Percent: 100 Seizure Duration By EEG (in seconds): 37 By Motor Observation (in seconds): 23 Medications Administration General Anesthetic: Etomidate (12mg) Muscle Relaxant: Succinylcholine (80mg) Ancillary Medications Analgesics: Torodol - Pre ECT (15mg) Anti-emetics: Zofran - Pre ECT (4mg) Miscillaneous Medications: Propofol (30mg) Airway Management Airway Management: Bag Mask Ventilation Treatment Recommendations Electrode Placement: Right Unilateral Program/Pulse Width: 0.25 Energy Percent: 100 Notes: Added Ketorolac 15mg pre-ect for c/o muscle aches post ect Added propofol 30mg post ect for c/o difficulty post ect mood stable; continue ECT maintenance [id number] Pt Tolerated Procedure w/o Issue: Yes
== END 2024-01-08 09:08 | disposition home or self-care (01) ==
PROVIDERS: Psychiatry & Neurology Psychiatry; PCP Internal Medicine; Visit Provider Psychiatry & Neurology Psychiatry
PROC: (CPT 90870; principal; 2024-01-08 07:00)
DX: F33.2 Major depressive disorder, recurrent severe without psychotic features (principal); F43.10 Post-traumatic stress disorder, unspecified; G20.A1 Parkinson's disease without dyskinesia, without mention of fluctuations; D64.9 Anemia, unspecified; J44.9 Chronic obstructive pulmonary disease, unspecified; N18.30 Chronic kidney disease, stage 3 unspecified; Q61.3 Polycystic kidney, unspecified; E78.5 Hyperlipidemia, unspecified; M81.0 Age-related osteoporosis without current pathological fracture; Z85.42 Personal history of malignant neoplasm of other parts of uterus; Z79.899 Other long term (current) drug therapy; Z88.2 Allergy status to sulfonamides; Z88.8 Allergy status to other drugs, medicaments and biological substances
CPT/HCPCS: 90870; J0330; J1885; J2250; J2405; J2704

== ENCOUNTER → 2024-01-08 05:52 | Outpatient (BNV) | payer MEDICARE, MEDICAID, SELFPAY | PROVIDERS: PCP Internal Medicine; Visit Provider Psychiatry & Neurology Psychiatry | DX: F33.3 Major depressive disorder, recurrent, severe with psychotic symptoms (principal) | CPT/HCPCS: 90870 ==

== ENCOUNTER 2024-01-29 21:46 | Emergency (ER) | payer MEDICARE, MEDICAID, SELFPAY ==
[2024-01-29 21:48] VITALS: BP 138/53; PULSE 69; RESP 16; TEMP 37.1; O2SAT 99; BMI 20.5
[2024-01-29 22:30] LABS: Appearance Urine Clear; Color Urine Yellow; Glucose Urine UA Negative (Negative); Leukocyte Esterase Urine Moderate (2+) (Negative); Nitrite Urine Negative (Negative); PH 5.5 (5.0-9.0); Specific Gravity - Urine 1.015 (1.005-1.025); UMIC TRIGGER UACC YES; Urine Blood Negative (Negative); Urine Ketones Negative (Negative); Urine Protein Negative (Neg-Trace)
[2024-01-29 22:35] LABS: Bacteria Urine 1+ (None Seen); Hyaline Casts Urine 0-2 /LPF (0-2); RBC Urine 0-2 /HPF (0-2); Squamous Epithelial Cell Urine 0-2 /HPF (0-2); UACC Culture Trigger YES; WBC Urine >50 /HPF (0-5)
[2024-01-29 22:40] LABS: Amphetamine Screen Urine Not Detected (Not Detect); Barbiturates, Urine Not Detected (Not Detect); Benzodiazepines Screen Urine Not Detected (Not Detect); Buprenorphine Scr Not Detected (Not Detect); Cannabinoid Screen Urine Not Detected (Not Detect); Cocaine Screen Urine Not Detected (Not Detect); Fentanyl, urine Not Detected (Not Detect); Methadone Screen, Urine Not Detected (Not Detect); Opiate Screen Urine Not Detected (Not Detect); Oxycodone Screen Urine Not Detected (Not Detect); Phencyclidine Screen Urine Not Detected (Not Detect)
[2024-01-29 22:41] LABS: Hematocrit 34.5 % (37.0-47.0); Hemoglobin 11.4 g/dl (12.0-16.0); Mean Corpuscular Hemoglobin 32.1 pg (27.0-33.0); Mean Corpuscular Volume 97.2 fL (80.0-98.0); Mean Platelet Volume 8.6 fL (9.4-12.3); Platelet Count 276 X10*3/uL (160-400); Red Blood Count 3.55 X10*6/uL (4.20-5.50); Red Cell Distribution Width 12.1 % (11.0-16.0)
[2024-01-29 23:00] LABS: Alanine Aminotransferase 7 U/L (0-31); Albumin Level 4.2 g/dL (3.5-5.0); Alkaline Phosphatase 77 U/L (39-117); Anion Gap 16 (12-20); Aspartate Amino Transferase 19 U/L (5-31); Bilirubin Total 0.2 mg/dL (0.0-1.0); Blood Urea Nitrogen 30 mg/dL (9-16); Calcium 10.1 mg/dL (8.4-10.2); Carbon Dioxide 27 mmol/L (22-29); Chloride 104 mmol/L (96-108); Estimated Glomerular Filt Rate 42; Ethanol < 10 mg/dL; Glucose Random 82 mg/dL (60-115); Potassium 4.5 mmol/L (3.3-5.1); Sodium 142 mmol/L (135-145)
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
[2024-01-30] MEDS: Acetaminophen 325 MG TABLET 975 MG PO (01:06)
[2024-01-30] MEDS: Carbidopa/Levodopa 25/100 TABLET 1.5 TAB PO ×2 (05:07→08:28)
[2024-01-30 06:21] VITALS: RESP 16
--- NOTE | 2024-01-30 07:05 | PC.NURSE ---
Assumed care of patient at 0645, patient appears to be in no apparent distress, appears to be sleeping at this time. Continue plan of care for CARE team jhon
[2024-01-30] MEDS: PARoxetine HCL 40 MG TABLET PO (08:27)
[2024-01-30] MEDS: Gabapentin 100 MG CAPSULE PO (08:27)
[2024-01-30] MEDS: buPROPion HCl XL 300 MG TAB.ER.24H PO (08:55)
[2024-01-30] MEDS: Famotidine 20 MG TABLET PO (08:57)
[2024-01-30] MEDS: cefuroxime axetiL 250 MG TABLET PO (09:16)
--- NOTE | 2024-01-30 10:31 | MHC.CARE ---
Pt does not present as an imminent risk and does not a higher level of care. Pt will D/C and follow up with current providers.
[2024-01-30 10:51] VITALS: BP 121/62; PULSE 75; RESP 16; TEMP 36.9; O2SAT 99
== END 2024-01-30 11:01 | disposition home or self-care (01) ==
PROVIDERS: Emergency Provider Emergency Medicine; PCP Internal Medicine
DX: F32.A Depression, unspecified (principal); F22 Delusional disorders; F43.10 Post-traumatic stress disorder, unspecified; J44.9 Chronic obstructive pulmonary disease, unspecified; G20.A1 Parkinson's disease without dyskinesia, without mention of fluctuations; F02.82 Dementia in other diseases classified elsewhere, unspecified severity, with psychotic disturbance; E21.3 Hyperparathyroidism, unspecified; Z79.899 Other long term (current) drug therapy
CPT/HCPCS: 36415; 80053; 80307; 81001; 85027; 87086; 99285; S9485

== ENCOUNTER → 2024-02-13 11:00 | Outpatient (REF) | payer MEDICARE, MEDICAID, SELFPAY ==
--- NOTE | 2024-02-13 11:05 | ECG_ITS ---
Test Reason : ptsd Blood Pressure : / mmHG Vent. Rate : 081 BPM Atrial Rate : 081 BPM P-R Int : 128 ms QRS Dur : 078 ms QT Int : 356 ms P-R-T Axes : 079 046 049 degrees QTc Int : 413 ms Normal sinus rhythm with sinus arrhythmia Normal ECG When compared with ECG of 18-DEC-2023 07:46, No significant change was found Referred By: Diamond Montgomery Electronically Signed By:Nicholas Hagen
--- OUTSIDE RECORDS SUMMARY | 2024-02-19 01:48 | XMS_ITS ---
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 Name Role Phone Diamond Montgomery MD Primary Care Provider Jagjit Pérez Unavailable [phone] ALLERGIES Allergen (clinical drug ingredient) Drug/Non Drug Allergy documented on EMR Reaction Allergy Type Onset Date Status sulfamethoxazole Sulfamethoxazole Unknown Drug Allergy Active metoclopramide Reglan Unknown Drug Allergy Ac tive albuterol Albuterol Unknown Drug Allergy Active REASON FOR VISIT Patient presents today for IBS MEDICATIONS Medication SIG (Take, Route, Frequency, Duration) Notes [...] MG 1tablet Orally Twice a day Active VITAL SIGNS BMI 20.07 kg/m2 12/18/2023 Blood pressure systolic 000 mm Hg 12/18/19 24 Blood pressure diastolic 00 mm Hg 024 Height 66 in 12/18/2023 Temperature 97.5 degrees Fahrenheit 12/18/19 24 Weight 124 lb 6 oz lbs 12/18/2023 Encounters Encounter Location Date Provider Diagnosis [facility] [address] [place] [address] 12/18/2023 Jagjit Son Irritable bowel synd damian with both constipation and diarrhea K58.2 and Gastroesophageal reflux disease, unspecified whether esophagitis present K21.9 ASSESSMENTS Encounter Date Diagnosis Assessment Notes Treatment Notes Treatment Clinical Notes 12/18/2023 Irritable bowel syndrome with both constipation and diarrhea (ICD-10 - K58.2) 12/18/2023 Gastroesophageal reflux disease, unspecified whether esophagitis present (ICD-10 - K21.9) Continue Famotidine 12/18/2023 Other Repeat colonoscopy in 2026 PLAN OF TREATMENT Treatment Notes Assessment Notes Gastroesophageal reflux dise ase, unspecified whether esophagitis present Continue Famotidine Other Repeat colonoscopy i n 2026 Next Appt Details Follow Up: prn, Reason: Progress Notes * Examination Category Sub-Category Detail Notes General Examination GENERAL APPEARANCE: pleasant , well [...]
--- OUTSIDE RECORDS SUMMARY | 2024-02-19 01:48 | XMS_ITS ---
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 Name Role Phone Diamond Montgomery MD Primary Care Provider Jagjit Pérez Unavailable [phone] REASON FOR VISIT IBS MEDICATIONS Medication SIG (Take, Route, Fr equency, Duration) Notes Start Date End Date Status Omeprazole 20 MG One daily Orally Onc e every morning for 90 days Active Encounters Encounter Location Date Provider Diagnosis [facility] [address] [place] [phone] 08/26/2023 Jagjit Son PLAN OF TREATMENT Medication Medication Name Sig Start Date Stop Date Notes Omeprazole 20 MG One daily Orally Onc e every morning for 90 days
--- OUTSIDE RECORDS SUMMARY | 2024-02-19 01:49 | XMS_ITS | Patient Health Record ---
Author Organization [facility] Address [address] [place] [address] Care Team Providers Care Engraver Copperplate Name Role Phone Ulises RASMUSSEN, Diamond Primary Care Provider Jagjit Pérez Unavailable [phone] ALLERGIES Allergen (clinical drug ingredient) Drug/Non Drug Allergy documented on EMR Reaction Allergy Type Onset Date Status sulfamethoxazole Sulfamethoxazole Unknown Drug Allergy Active metoclopramide Reglan Unknown Drug Allergy Ac tive albuterol Albuterol Unknown Drug Allergy Active REASON FOR REFERRAL No Information MEDICATIONS Medication SIG (Take, Route, Frequency, Duration) Notes Start Date End Date Status Famotidine 40 MG TAKE 1 TABLET BY JJ TH TWICE DAILY FOR REFLUX. for 90 Active Dicyclomine HCl 10 MG TAKE 1 TO 2 CAPSUL ES BY MOUTH EVERY 6 HOURS NEEDED FOR ABDOMINAL DISCOMFORT/CRAMPS FOR 30 DAYS. for 90 Active Gabapentin 100 MG Oral for 90 Not-Taking Omeprazole 20 MG One daily Orally Onc e every morning for 90 days Active Atrovent HFA 17 MCG/ACT 2 puffs Inhalati on Four times a day Active PARoxetine HCl 30 MG 1 tablet in the mor florencia Orally Once a day Active Carbidopa-Levodopa 25-100 MG Oral for 90 Active buPROPion HCl ER (SR) 150 MG 1tablet Orally Twice a day Active clonazePAM 0.5 MG 1po Orally qid Active Vitamin B6 100 MG 1 tablet Orally Once a day for 30 day(s) Active IMMUNIZATIONS Vaccine Route Administration Date Status Comme nts Flu vaccine no Preserv 3 and > Unknown 11/25/2013 Admin istered Influenza Unknown 11/09/2020 Administered Influenza Unknown 12/11/2023 Administered SOCIAL HISTORY Sex Assigned At : Social History Observation Description Sex Assigned At Unknown PROBLEMS Problem Type ICD Code Onset Dates Problem Status W/U Status Risk SNOMED Code Notes Problem Esophageal reflux (K21.9) Active confirmed Esophageal reflux (930442332) Problem Encounter for screening for malignant neoplasm of colon (Z12.11) Active confirmed 469670681 Problem Weight loss (R63.4) Active confirmed 89 526959 Problem Gastric polyp (K31.7) Active confirmed Gastric polyp (13087448) Problem Gastritis (K29.70) Active confirmed Gas tritis (0228292) Problem Diarrhea, unspecified type (R19.7) Active confirmed 93318702 Problem Irritable bowel syndrome with both constipation and diarrhea (K58.2) Active confirmed 62767345 Problem Diverticulosis of colon (K57.30) Active confirmed Diverticulosi s of colon (423321380) Problem Gastric adenoma (D13.1) Active confirmed 77395552 Problem Gastroesophageal reflux disease, unspecified whether esophagitis present (K21.9) Active confirmed 911746356 Problem Nausea and vomiting, unspecified vomiting type (R11.2) Active confirmed 79357294 VITAL SIGNS Temperature 97.5 degrees Fahrenheit 12/18/2023 Blood pressure diastolic 00 mm Hg 12/18/2023 Height 66 in 12/18/2023 Blood pressure systolic 000 mm Hg 12/18/2023 Weight 124 lb 6 oz lbs 12/18/2023 BMI 20.07 kg/m2 12/18/2023 Encounters Encounter Location Date Provider Diagnosis [facility] [address] [place] [phone] 12/18/2023 Jagjit Son Irritable bowel synd damian with both constipation and diarrhea K58.2 and Gastroesophageal reflux disease, unspecified whether esophagitis present K21.9 [facility] [address] [place] [phone] 08/26/2023 Jagjit Son ASSESSMENTS Encounter Date Diagnosis Assessment Notes Treatment Notes Treatment Clinical Notes 12/18/2023 Irritable bowel syndrome with both constipation and diarrhea (ICD-10 - K58.2) 12/18/2023 Gastroesophageal reflux disease, unspecified whether esophagitis present (ICD-10 - K21.9) Continue Famotidine 12/18/2023 Other Repeat colonoscopy in 2026 PLAN OF TREATMENT Pending Test Test Name Order Date CHEM 7 PROFILE 05/04/2022 LIVER PROFILE 05/04/2022 CRP 05/04/2022 CBC w DIFF 05/04/2022 SED RATE (ESR) 05/04/2022 CELIAC PANEL #10 05/04/2022 STOOL WBC 05/04/2022 C DIFFICILE RFLX PCR 05/04/2022 GI PANEL 05/04/2022 Future Test Test Name Order Date UPPER GI ENDOSCOPY 10/07/2014 UPPER GI ENDOSCOPY 05/18/2021 COLONOSCOPY 05/18/2021 Insurance Providers Payer Name Payer Address Payer Phone Subscriber Number Group Number Insured Name Patient Relationship to Insured Coverage Start Date Coverage End Date Aetna (No Referral) [address] [address] [place], [place] [address] [id number] HE CRAIG Self - patient is the insured MEDICAID OF [employer] [address] [place] [address] [id number] HE CRAIG Self - patient is the insured MEDICAL (GENERAL) HISTORY Medical History History ICD Code COPD/Asthma IBS PTSD/Depression Denies [place],DM,CVA,renal disease GERD Upper endo in 05/2011 with ga stric polyps-1 biopsy showed adenomatous tissue--other biopsies neg. for celiac disease, eosinophilic esophagitis, and H.pylori Colonoscopy in 05/2011 neg for polyps and microscopic colitis Depression-ECT EGD in 11/2012--gastric polyps, but no ad enomas- Fibromyalgia Parkinson's disease Polycystic kidney disease EGD 11/2014 and revealed a sm all hiatal and minimal gastritis. Gastric biopsies were negative for H. pylori. There were hyperplastic polyps but no changes of adenomatous tissue. Weight loss 783.21 Upper endoscopy in June of 2021-small hiatal hernia, benign and nonadenomatous gastric polyps, gastric biopsies negative for H. pylori, no esophagitis nor Wolf's esophagus Colonoscopy in June of 2021 with only a small tubular adenoma removed Surgical History Surgery Date(Month/Year) Bilateral carpal tunnel Dog bite injury to left hand Hysterectomy Nasal surgery [facility]Y Dog bite right hand
--- OUTSIDE RECORDS SUMMARY | 2024-02-19 01:49 | XMS_ITS | Clinical Summary ---
Author Organization Unknown Care Team Providers Care Paperhanger Assistant Name Role Phone YAIMA RASMUSSEN, KAVITA BEST Unavailable Unav agata SPEARS RN, SNEHAL Unavailable Unavailable Payers Payer Name Policy Type Policy Number Effective Date Expira tion Date ZZZ AETNA MEDICARE ADVANTAGE FFS [id number] [place] [id number] Problems Condition Name Condition Details Condition Category Status Onset Date Resolution Date Last Treatment Date Treating Clinician Comments POST-TRAUMAT IC STRESS DISORDER, UNSPECIFIED Active 09-25 00:00: 00 PARKINSON'S DIS W/O DYSKINESIA, W/O MENTION OF FLUCTUATIONS Active 09-26 00:00: 00 Allergies, Adverse Reactions, Alerts Allergy Name Allergy Type Status Severity Reaction(s) Onset Date Inactive Date Treating Clinician Comments TOMATOS Propensity to adverse reactions Active 2023-09 11:50:4 8 SULFA MEDS Propensity to adverse reactions Active 2023-09 11:51:0 9 Medications Ordered Medication Name Filled Medication Name Start Date Stop Date Current Medication? Ordering Clinician Indication Dosage Frequency Signature (SIG) Comments Components albuterol sulfate HFA 90 mcg/actuati on aerosol inhaler 06-25 00:00: 00 Yes [id number] 2 puff DIRECTED 2 puff DIRECTED (route: inhalation ) Med Classific ation: Respirato ry Therapy Agents bupropion HCl XL 300 mg 24 hr tablet, extended release 06-25 00:00: 00 Yes [id number] 1 tablet DAILY 1 tablet DAILY (route: oral) Med Classific ation: Central Nervous System Agents carbidopa 25 mg-levodopa 100 mg tablet 06-25 00:00: 00 Yes [id number] 1.5 tablet 4 TIMES DAILY 1.5 tablet 4 TIMES DAILY (route: oral) Med Classific ation: Central Nervous System Agents famotidine 40 mg tablet 2024-0 4-17 00:00: 00 09-01 23:59 :00 No [id number] 1 tablet DAILY 1 tablet DAILY (route: oral) Med Classific ation: Gastroint estinal Therapy Agents paroxetine 40 mg tablet 17 00:00: 00 Yes [id number] 1 tablet DAILY 1 tablet DAILY (route: oral) Med Classific ation: Central Nervous System Agents trazodone 50 mg tablet 17 00:00: 00 Yes [id number] Per instruc tions BEDTIME Per instructio ns BEDTIME (route: oral) Med Classific ation: Central Nervous System Agents gabapentin 100 mg capsule -24 00:00: 00 Yes [id number] pain Per instruc tions BEDTIME Per instructio ns BEDTIME (route: oral) Med Classific ation: Central Nervous System Agents omeprazole 40 mg capsule,del ayed release 24 00:00: 00 Yes [id number] 1 capsule DAILY 1 capsule DAILY (route: oral) Med Classific ation: Gastroint estinal Therapy Agents gabapentin 100 mg capsule 2023-03 0- 00:00: 00 Yes [id number] Per instruc tions 2 TIMES DAILY Per instructio ns 2 TIMES DAILY (route: oral) Med Classific ation: Central Nervous System Agents Vital Signs Vital Name Observation Time Observation Value Commen ts Pulse 2024-02-07 10:31:00.000 74 /min Pulse 2024-02-05 10:39:00.000 70 /min Pulse 2024-01-31 11:16:00.000 64 /min Pulse 2024-01-27 11:35:00.000 76 /min O2 Saturation (%) 2024-01-31 11:27:00.000 96 % Respirations 2024-02-07 10:31:00.000 20 /min Respirations 2024-02-05 10:39:00.000 20 /min Respirations 2024-01-31 11:16:00.000 20 /min Respirations 2024-01-27 11:35:00.000 20 /min Systolic Blood Pressure 2024-02-07 10:31:00.000 122 mm [Hg] Systolic Blood Pressure 2024-02-05 10:39:00.000 118 mm [Hg] Systolic Blood Pressure 2024-01-31 11:16:00.000 120 mm [Hg] Systolic Blood Pressure 2024-01-27 11:35:00.000 118 mm [Hg] Diastolic Blood Pressure 2024-02-07 10:31:00.000 68 mm [Hg] Diastolic Blood Pressure 2024-02-05 10:39:00.000 68 mm [Hg] Diastolic Blood Pressure 2024-01-31 11:16:00.000 78 mm [Hg] Diastolic Blood Pressure 2024-01-27 11:35:00.000 62 mm [Hg] Plan of Treatment Planned Activity Planned Date Details Comments Future Scheduled Test SKILLED NU RSE TO EVALUATE PATIENT, IDENTIFY PRIMARY AND CO-MORBID CONDITIONS CODED PER CODING GUIDELINES, AND DEVELOP PATIENT SPECIFIC PLAN OF CARE THAT INCLUDES PATIENT GOAL FOR HOME HEALTH. [code = SKILLED NURSE TO EVALUATE PATIENT, IDENTIFY PRIMARY AND CO-MORBID CONDITIONS CODED PER CODING GUIDELINES, AND DEVELOP PATIENT SPECIFIC PLAN OF CARE THAT INCLUDES PATIENT GOAL FOR HOME HEALTH.] Future Scheduled Test SKILLED NU RSE WILL MAINTAIN SITUATIONAL AWARENESS FOR SAFETY AND WILL NOTIFY CLINICAL PAPER MAKING MACHINE OPERATOR AND PHYSICIAN/PROVIDER WITH ANY CHANGE IN CONDITION. [code = SKILLED NURSE WILL MAINTAIN SITUATIONAL AWARENESS FOR SAFETY AND WILL NOTIFY CLINICAL PAPER MAKING MACHINE OPERATOR AND PHYSICIAN/PROVIDER WITH ANY CHANGE IN CONDITION.] Future Scheduled Test SKILLED NU RSE TO O/A OF PATIENTS MENTAL/BEHAVIORAL STATUS, ASSESS VITAL SIGNS 1X/WK, SNV 3WK8, ALLOW 2 PRNS FOR MEDICATION MANAGEMENT. [code = SKILLED NURSE TO O/A OF PATIENTS MENTAL/BEHAVIORAL STATUS, ASSESS VITAL SIGNS 1X/WK, SNV 3WK8, ALLOW 2 PRNS FOR MEDICATION MANAGEMENT.] Future Scheduled Test SKILLED NU RSE TO ADMINISTER MEDICATIONS 3WK8 AND PRE-POUR MEDICATIONS 1WK8 PER MEDICATION LIST. [code = SKILLED NURSE TO ADMINISTER MEDICATIONS 3WK8 AND PRE-POUR MEDICATIONS 1WK8 PER MEDICATION LIST.] Future Scheduled Test SKILLED NU RSE TO ASSESS PATIENTS PSYCHOSOCIAL STATUS TO IDENTIFY POTENTIAL ISSUES THAT MAY COMPLICATE THE PROVISION OF THE PLAN OF CARE INCLUDING THE PATIENTS ABILITY TO ACCESS COMMUNITY RESOURCES AND PSYCHOSOCIAL SUPPORT SERVICES. [code = SKILLED NURSE TO ASSESS PATIENTS PSYCHOSOCIAL STATUS TO IDENTIFY POTENTIAL ISSUES THAT MAY COMPLICATE THE PROVISION OF THE PLAN OF CARE INCLUDING THE PATIENTS ABILITY TO ACCESS COMMUNITY RESOURCES AND PSYCHOSOCIAL SUPPORT SERVICES.] Future Scheduled Test SKILLED NU RSE TO INSTRUCT PATIENT/CAREGIVER ON SIGNS AND SYMPTOMS AND METHODS TO MANAGE PARKINSON'S DISEASE PROGRESSION. [code = SKILLED NURSE TO INSTRUCT PATIENT/CAREGIVER ON SIGNS AND SYMPTOMS AND METHODS TO MANAGE PARKINSON'S DISEASE PROGRESSION.] Future Scheduled Test SKILLED NU RSE TO REVIEW PATIENT MEDICATIONS. INSTRUCT PATIENT/CAREGIVER ON MONITORING OF EFFECTIVENESS, ADVERSE DRUG REACTIONS, SIDE EFFECTS OF ALL MEDICATIONS (PRESCRIPTION/-OTC), AND HOW AND WHEN TO REPORT PROBLEMS. [code = SKILLED NURSE TO REVIEW PATIENT MEDICATIONS. INSTRUCT PATIENT/CAREGIVER ON MONITORING OF EFFECTIVENESS, ADVERSE DRUG REACTIONS, SIDE EFFECTS OF ALL MEDICATIONS (PRESCRIPTION/-OTC), AND HOW AND WHEN TO REPORT PROBLEMS.] Goal 2023-11-22 Patient Goal - CONTINUE TO F EEL GOOD Goal 2024-01-20 Patient Goal - TO GET THINGS ORGANIZED Goal Patient Goal - TO STAY HEALT HY Goal Provider Goal - A PLAN OF CARE WILL BE ESTABLISHED THAT MEETS PATIENT'S LONG TERM NEEDS AND INCLUDES PATIENT GOAL FOR HOME HEALTH. Goal Provider Goal - PATIENT WILL REMAIN SAFE IN THE COMMUNITY AND WILL BE FREE OF DANGER TO SELF AND OTHERS THROUGHOUT THE CERTIFICATION PERIOD. Goal Provider Goal - ALTERED MENTAL/BEHAVIORAL STATUS WILL BE IDENTIFIED PROMPTLY AND INTERVENTION INITIATED QUICKLY TO MINIMIZE ASSOCIATED RISKS THROUGHOUT CERTIFICATION PERIOD. Goal Provider Goal - PATIENT WILL COMPLY WITH MEDICATION WHEN SKILLED NURSE ADMINISTERS AND PRE-POURS MEDICATION THROUGHOUT CERTIFICATION PERIOD. Goal Provider Goal - PSYCHOSOCIAL NEEDS WILL BE IDENTIFIED AND PLAN IMPLEMENTED TO MINIMIZE RISK THROUGHOUT CERTIFICATION PERIOD. Goal Provider Goal - PATIENT/CAREGIVER WILL VERBALIZE SIGNS AND SYMPTOMS OF PARKINSON'S DISEASE AND DEMONSTRATE METHODS TO MANAGE DISEASE PROCESS BY END OF CERTIFICATION PERIOD. Goal Provider Goal - PATIENT/CAREGIVER WILL VERBALIZE UNDERSTANDING OF EDUCATION PROVIDED ON MEDICATIONS BY THE END OF THE CERTIFICATION PERIOD. Encounters Start Date/Time End Date/Time Encounter Type Admission Type Attending [facility] Care Department Encounter ID Discharge Date Discharge Status Discharge Condition Discharge Reason Percent Goals Met 2023-09-27 00:00:00 2024-03-24 00:00:00 [facility] [id number] 90.00
== END ==
LOC: HO.CARD 11:00
PROVIDERS: PCP Internal Medicine; Visit Provider Internal Medicine
DX: Z01.818 Encounter for other preprocedural examination (principal); G20.A1 Parkinson's disease without dyskinesia, without mention of fluctuations
CPT/HCPCS: 93005; 99212

== ENCOUNTER → 2024-02-13 11:05 | Outpatient (BNV) | payer MEDICARE, MEDICAID, SELFPAY | PROVIDERS: PCP Internal Medicine; Visit Provider Internal Medicine Cardiovascular Disease | DX: I49.9 Cardiac arrhythmia, unspecified (principal) | CPT/HCPCS: 93010 ==

== ENCOUNTER 2024-02-13 12:27 | Outpatient (AMB) | payer MEDICARE, MEDICAID, SELFPAY ==
--- NOTE | 2024-02-13 12:42 | MHC.OFFVIS ---
Intake Visit Reasons: Follow up Intake Note: Patient presents for follow up Allergies tomato [TOMATO] Allergy (Severe, Verified 02/13/24 12:43) ANAPHYLAXIS Sulfa (Sulfonamide Antibiotics) Allergy (Intermediate, Verified 02/13/24 12:43) TRAVIS davis albuterol Allergy (Unknown, Verified 02/13/24 12:43) Unknown metoclopramide [Reglan] Allergy (Unknown, Verified 02/13/24 12:43) Unknown quetiapine [From Seroquel] Adverse Reaction (Severe, Verified 02/13/24 12:43) Hallucinations Medication List - Last Reconciled 02/13/24 by Olga James MD albuterol sulfate 90 mcg/actuation 2 puffs inhalation Q6H PRN benzocaine-menthol 15-3.6 mg (Sore Throat (benzocaine with menthol)) 1 isidoro mucous membrane DAILY 30 days bupropion HCl XL 300 mg PO QAM carbidopa-levodopa 25-100 mg 1.5 tabs PO QID 30 days cefuroxime axetil 250 mg PO BID 7 days famotidine 40 mg PO QAM gabapentin orally 1 cap qam q noon and 3 caps qhs; 100mg qam 100mg q noon and 300mg qhs paroxetine HCl 40 mg PO DAILY trazodone 25 - 50 mg (0.5 - 1 x 50 mg) PO BEDTIME MRX1 PRN 30 days HPI Comments Details: 73-year-old female comes for follow-up of her Parkinson's disease .she is on ECT for mood and she is doing very well. Her parkinsons is stable . Her speech is good. Sleep is good she is doing the exercises that she learnt from PT No falls. she is independent in all ADLs. she reports leg cramps at bedtime and sometimes during daytime - gabapentin helps. she also reports excessive sweating. she had an episode post ECT - where she was confused the whole and has back pain since then . No shooting pains. [facility] Medical History (Updated 02/13/24 @ 13:08 by Olga James MD) Low back pain Back pain Osteoporosis Restless legs syndrome (RLS) Parkinson's disease without dyskinesia or fluctuating manifestations History of uterine cancer Parkinson's disease without dyskinesia Sleep disorder Anemia CKD (chronic kidney disease), stage III PTSD (post-traumatic stress disorder) Hyperparathyroidism Family history of malignant neoplasm of endometrium Polycystic kidney disease Multinodular thyroid Back pain GERD (gastroesophageal reflux disease) Chronic fatigue IBS (irritable bowel syndrome) Fibromyalgia COPD (chronic obstructive pulmonary disease) Surgical History Hx laparoscopic cholecystectomy History of esophagogastroduodenoscopy (EGD) H/O colonoscopy History of left breast biopsy Hx of cholecystectomy History of sinus surgery History of carpal tunnel syndrome History of total abdominal hysterectomy Family History Father COPD (chronic obstructive pulmonary disease) Mother Arteriosclerosis Breast cancer, Onset Age: 80 Sister Diabetes mellitus Breast cancer, Onset Age: 70 Brother Bone cancer History of pituitary cancer Social History Household Members: None Housing: House Do you presently have visiting nurse or other home services: No Unable to assess alcohol history related to: Refusing to respond Alcohol intake: never Patient Tobacco Use Status: Never used Tobacco e-Cigarette/Vaping Use: Never Used service: No Current occupational status: unemployed Sexual orientation: Straight/Heterosexual Cognitive needs: No Hearing needs: No Vision needs: Yes Physical Exam Const General: cooperative Nutritional Appearance: average body habitus Orientation/consciousness: patient oriented x3 HEENT Head: Yes normal to inspection Neck Other: mild antecollis and restricted range of motion Neuro Other: Mild decreased blink and facial expression No tremors Voice- good Wade UE postural tremors Fine Finger movements - mildly decreased wade R>L Alternating hand movements - decreased wade Hand movements - decreased wade Foot taps- decreased wade No cog wheel rigidity gait - with cane mild slowness General: patient oriented x3 and no focal motor deficits Cranial nerves: Yes CN's II-XII intact bilaterally Coordination: [id number] test normal Psych Affect: Anxious affect present Assessment & Plan Assessment & Plan (1) Parkinson's disease without dyskinesia or fluctuating manifestations: Code(s): G20.A1 - Parkinson's disease without dyskinesia, without mention of fluctuations Category: Medical (2) Sleep disorder: Code(s): G47.9 - Sleep disorder, unspecified Category: Medical (3) Restless legs syndrome (RLS): Code(s): G25.81 - Restless legs syndrome Category: Medical (4) Back pain: Code(s): M54.9 - Dorsalgia, unspecified Category: Medical Qualifiers: Back pain location: thoracic back pain Chronicity: chronic Back pain laterality: bilateral Qualified Code(s): M54.6 - Pain in thoracic spine; G89.29 - Other chronic pain Plan Continue carbidopa/levodopa 25/100 1.5 tabs qid Continue exercise F/u Dr. Ramey - doing well with ECT continue gabapentin 100mg 1tab qam, qnoon 3 tabs qhs Orders: Orders PT Evaluation and Treatment Today G89.29 - Other chronic pain, M54.50 - Low back pain, unspecified, M54.6 - Pain in thoracic spine Medications: Changed From carbidopa-levodopa 25-100 mg 1.5 tabs PO QID 30 days 180 tabs 1RF To carbidopa-levodopa 25-100 mg 1.5 tabs PO QID 90 days 540 tabs 1RF Refilled carbidopa-levodopa 25-100 mg 1.5 tabs PO QID 30 days 180 tabs 1RF gabapentin orally 1 cap qam q noon and 3 caps qhs; 100mg qam 100mg q noon and 300mg qhs 450 caps 3RF Coding Level of Care Code Est Pt Level 4 (36930) Complex EM visit Add On G2211 Diagnoses Parkinson's disease without dyskinesia or fluctuating manifestations G20.A1 Sleep disorder G47.9 Restless legs syndrome (RLS) G25.81 Chronic bilateral thoracic back pain M54.6; G89.29 Back pain location: thoracic back pain Chronicity: chronic Back pain laterality: bilateral
--- OUTSIDE RECORDS SUMMARY | 2024-02-19 02:08 | XMS_ITS | Clinical Summary ---
Author Organization Unknown Care Team Providers Care Continuity Reader Name Role Phone YAIMA RASMUSSEN, KAVITA BEST Unavailable Unav agata SPEARS RN, SNEHAL Unavailable Unavailable Payers Payer Name Policy Type Policy Number Effective Date Expira tion Date ZZZ AETNA MEDICARE ADVANTAGE FFS [id number] [place] [id number] Problems Condition Name Condition Details Condition Category [...] on aerosol inhaler 06-25 00:00: 00 Yes [id number] 2 puff DIRECTED 2 puff DIRECTED (route: inhalation ) Med Classific ation: Respirato ry Therapy Agents bupropion HCl XL 300 mg 24 hr tablet, extended release 06-25 00:00: 00 Yes [id number] 1 tablet DAILY 1 tablet DAILY (route: oral) Med Classific ation: Central Nervous System Agents carbidopa 25 mg-levodopa 100 mg tablet 06-25 00:00: 00 Yes [id number] 1.5 tablet 4 TIMES DAILY 1.5 tablet 4 TIMES DAILY (route: oral) Med Classific ation: Central Nervous System Agents famotidine 40 mg tablet 2024-0 4-17 00:00: 00 09-01 23:59 :00 No [id number] 1 tablet DAILY 1 tablet DAILY (route: oral) Med Classific ation: Gastroint estinal Therapy Agents paroxetine 40 mg tablet 17 00:00: 00 Yes [id number] 1 tablet DAILY 1 tablet DAILY (route: oral) Med Classific ation: Central Nervous System Agents trazodone 50 mg tablet 17 00:00: 00 Yes [id number] Per instruc tions BEDTIME Per instructio ns BEDTIME (route: oral) Med Classific ation: Central Nervous System Agents gabapentin 100 mg capsule -24 00:00: 00 Yes [id number] pain Per instruc tions BEDTIME Per instructio ns BEDTIME (route: oral) Med Classific ation: Central Nervous System Agents omeprazole 40 mg capsule,del ayed release 24 00:00: 00 Yes [id number] 1 capsule DAILY 1 capsule DAILY (route: oral) Med Classific ation: Gastroint estinal Therapy Agents gabapentin 100 mg capsule 2023-03 0- 00:00: 00 Yes [id number] Per instruc tions 2 TIMES DAILY Per [...] AWARENESS FOR SAFETY AND WILL NOTIFY CLINICAL EDGE INKER AND PHYSICIAN/PROVIDER WITH ANY CHANGE IN CONDITION. [code = SKILLED NURSE WILL MAINTAIN SITUATIONAL AWARENESS FOR SAFETY AND WILL NOTIFY CLINICAL EDGE INKER AND PHYSICIAN/PROVIDER WITH ANY CHANGE IN CONDITION.] [...] CARE WILL BE ESTABLISHED THAT MEETS PATIENT'S PENITENTIARY NEEDS AND INCLUDES PATIENT GOAL FOR HOME [...] End Date/Time Encounter Type Admission Type Attending [facility] Care Department Encounter ID Discharge Date Discharge Status Discharge Condition Discharge Reason Percent Goals Met 2023-09-27 00:00:00 2024-03-24 00:00:00 [facility] [id number] 90.00
--- OUTSIDE RECORDS SUMMARY | 2024-02-19 02:08 | XMS_ITS | Clinical Summary ---
Author Organization Unknown Care Team Providers Care Customs Investigator Name Role Phone YAIMA RASMUSSEN, KAVITA BEST Unavailable Unav agata SPEARS RN, SNEHAL Unavailable Unavailable Payers Payer Name Policy Type Policy Number Effective Date Expira tion Date ZZZ AETNA MEDICARE ADVANTAGE FFS [id number] [place] [id number] Problems Condition Name Condition Details Condition Category [...] on aerosol inhaler 06-25 00:00: 00 Yes [id number] 2 puff DIRECTED 2 puff DIRECTED (route: inhalation ) Med Classific ation: Respirato ry Therapy Agents bupropion HCl XL 300 mg 24 hr tablet, extended release 06-25 00:00: 00 Yes [id number] 1 tablet DAILY 1 tablet DAILY (route: oral) Med Classific ation: Central Nervous System Agents carbidopa 25 mg-levodopa 100 mg tablet 06-25 00:00: 00 Yes [id number] 1.5 tablet 4 TIMES DAILY 1.5 tablet 4 TIMES DAILY (route: oral) Med Classific ation: Central Nervous System Agents famotidine 40 mg tablet 2024-0 4-17 00:00: 00 09-01 23:59 :00 No [id number] 1 tablet DAILY 1 tablet DAILY (route: oral) Med Classific ation: Gastroint estinal Therapy Agents paroxetine 40 mg tablet 17 00:00: 00 Yes [id number] 1 tablet DAILY 1 tablet DAILY (route: oral) Med Classific ation: Central Nervous System Agents trazodone 50 mg tablet 17 00:00: 00 Yes [id number] Per instruc tions BEDTIME Per instructio ns BEDTIME (route: oral) Med Classific ation: Central Nervous System Agents gabapentin 100 mg capsule -24 00:00: 00 Yes [id number] pain Per instruc tions BEDTIME Per instructio ns BEDTIME (route: oral) Med Classific ation: Central Nervous System Agents omeprazole 40 mg capsule,del ayed release 24 00:00: 00 Yes [id number] 1 capsule DAILY 1 capsule DAILY (route: oral) Med Classific ation: Gastroint estinal Therapy Agents gabapentin 100 mg capsule 2023-03 0- 00:00: 00 Yes [id number] Per instruc tions 2 TIMES DAILY Per [...] AWARENESS FOR SAFETY AND WILL NOTIFY CLINICAL UNIFORM PATROL POLICE OFFICER AND PHYSICIAN/PROVIDER WITH ANY CHANGE IN CONDITION. [code = SKILLED NURSE WILL MAINTAIN SITUATIONAL AWARENESS FOR SAFETY AND WILL NOTIFY CLINICAL UNIFORM PATROL POLICE OFFICER AND PHYSICIAN/PROVIDER WITH ANY CHANGE IN CONDITION.] [...] CARE WILL BE ESTABLISHED THAT MEETS PATIENT'S HALFWAY NEEDS AND INCLUDES PATIENT GOAL FOR HOME [...] End Date/Time Encounter Type Admission Type Attending [facility] Care Department Encounter ID Discharge Date Discharge Status Discharge Condition Discharge Reason Percent Goals Met 2023-09-27 00:00:00 2024-03-24 00:00:00 [facility] [id number] 90.00
== END 2024-02-13 13:15 | disposition home or self-care (01) ==
PROVIDERS: Visit Provider Psychiatry & Neurology Neurology
DX: G20.A1 Parkinson's disease without dyskinesia, without mention of fluctuations (principal); G47.9 Sleep disorder, unspecified; G25.81 Restless legs syndrome; M54.6 Pain in thoracic spine; G89.29 Other chronic pain
CPT/HCPCS: 99214; G2211

== ENCOUNTER 2024-02-17 13:40 | Outpatient (AMB) | payer MEDICARE, MEDICAID, SELFPAY ==
--- NOTE | 2024-02-17 14:20 | A.OFFPC_ITS ---
Vital Signs 02/17/24 14:32 Height 5 ft 6 in Weight 130 lb BMI 21.0 BP 100/60 Blood Pressure Location Rt brachial Position Sitting Pulse 64 Pulse Source Pulse Oximeter Pulse Oximetry (%) 98 Oxygen Delivery Method Room Air Intake Visit Reasons: ECT w/ Dr. Shearer 03/02 Intake Note: Pt is here today for her pre-op for a ECT with Dr. Shearer on 03/02/24 Allergies tomato [TOMATO] Allergy (Severe, Verified 02/17/24 14:54) ANAPHYLAXIS Sulfa (Sulfonamide Antibiotics) Allergy (Intermediate, Verified 02/17/24 14:54) TRAVIS davis albuterol Allergy (Unknown, Verified 02/17/24 14:54) Unknown metoclopramide [Reglan] Allergy (Unknown, Verified 02/17/24 14:54) Unknown quetiapine [From Seroquel] Adverse Reaction (Severe, Verified 02/17/24 14:54) Hallucinations Medication List - Last Reconciled 02/17/24 by Diamond Montgomery MD albuterol sulfate 90 mcg/actuation 2 puffs inhalation Q6H PRN bupropion HCl XL 300 mg PO QAM carbidopa-levodopa 25-100 mg 1.5 tabs PO QID 90 days famotidine 40 mg PO QAM gabapentin orally 1 cap qam q noon and 3 caps qhs; 100mg qam 100mg q noon and 300mg qhs paroxetine HCl 40 mg PO DAILY trazodone 25 - 50 mg (0.5 - 1 x 50 mg) PO BEDTIME MRX1 PRN 30 days Tobacco use date assessed: 02/17/24 Fall risk assessment: 2 + Falls in past year Last assessed Fall Risk: 02/17/24 Dental Screening Dental Screen Date: 02/17/24 Did you have a dental visit in the last 12 months?: No Did you have a dental problem in the last 6 months where you did not have access to dental care?: No Was dental information given to patient?: Patient has dentist HPI ECT w/ Dr. Shearer 03/02 HPI Details - The patient is a 73-year-old female pr esenting today for medical clearance prior to ECT procedure , requested by Dr Shearer , scheduled for 03/02/24. - Diagnosed with Severe Depression/PTSD, which significantly impacts memory and cognitive function. - Reported improvement in depression aft er ECT initiation earlier this year .. - She has history of Parkinson's disease without dyskinesia currently followed by Dr. James. She sees Dr. Power for her polycystic kidney disease and history of nephrolithiasis, currently asymptomatic. She takes famotidine for her chronic reflux. She has primary hyperparathyroidism with moderate to severe osteoporosis in the setting of CKD stage 3, - Has been feeling well , except for occ asional muscle spasticity and stiffness . - Weight has increased slightly; current weight is 130 lbs. [facility] Medical History (Updated 02/20/24 @ 02:15 by Diamond Montgomery MD) Low back pain Back pain Osteoporosis Restless legs syndrome (RLS) Parkinson's disease without dyskinesia or fluctuating manifestations History of uterine cancer Parkinson's disease without dyskinesia Sleep disorder Anemia CKD (chronic kidney disease), stage III PTSD (post-traumatic stress disorder) Hyperparathyroidism Family history of malignant neoplasm of endometrium Polycystic kidney disease Multinodular thyroid Back pain GERD (gastroesophageal reflux disease) Chronic fatigue IBS (irritable bowel syndrome) Fibromyalgia COPD (chronic obstructive pulmonary disease) Surgical History Hx laparoscopic cholecystectomy History of esophagogastroduodenoscopy (EGD) H/O colonoscopy History of left breast biopsy Hx of cholecystectomy History of sinus surgery History of carpal tunnel syndrome History of total abdominal hysterectomy Family History Father COPD (chronic obstructive pulmonary disease) Mother Arteriosclerosis Breast cancer, Onset Age: 80 Sister Diabetes mellitus Breast cancer, Onset Age: 70 Brother Bone cancer History of pituitary cancer Social History Household Members: None Housing: House Do you presently have visiting nurse or other home services: No Unable to assess alcohol history related to: Refusing to respond Alcohol intake: never Patient Tobacco Use Status: Never used Tobacco e-Cigarette/Vaping Use: Never Used service: No Current occupational status: unemployed Sexual orientation: Straight/Heterosexual Cognitive needs: No Hearing needs: No Vision needs: Yes Questionnaire PHQ-9 Over the last 2 weeks, how often have you been bothered by any of the following problems? 1. Little interest or pleasure in doing things: several days 2. Feeling down, depressed, or hopeless: several days 3. Trouble falling or staying asleep, or sleeping too much: several days 4. Feeling tired or having little energy: several days 5. Poor appetite or overeating: not at all 6. Feeling bad about yourself - or that you are a failure or have let yourself or your family down: several days 7. Trouble concentrating on things, such as reading the newspaper or watching television: several days 8. Moving or speaking so slowly that other people could have noticed. Or the opposite - being so fidgety or restless that you have been moving around a lot more than usual: several days 9. Thoughts that you would be better off or of hurting yourself in some way: not at all Total score: 7 Depression Screening Interpretation: Positive Depression Screening Follow-up: Existing condition, In treatment and Other (scheduled for ECT ) Depression Screening Done: Yes Source: Developed by Drs. Jagjit Osman, Gracia Kowalski, Emilio Wong and colleagues, with an educational luisa from [employer]. Thrive Questionnaire Date Thrive assessed: 02/15/24 I am a: Patient What is your living situation today?: I have a steady place to live Within the past 12 months, did the food you bought not last and you didn't have the money to get more?: Sometimes True Within the past 12 months, did you worry whether your food would run out before you got money to buy more?: Sometimes True Do you have trouble paying for medicines?: No Do you have trouble getting transportation to medical appointments?: I choose not to answer this question Do you have trouble paying your heating and electricity bill?: Yes Do you have trouble taking care of your child, family member or friend?: No Do you have trouble with day-to-day activities such as bathing, preparing meals, shopping, managing finances, etc.?: No Are you currently unemployed and looking for a job?: No Are you interested in more education?: No Please select the resources that you would like help with: Transportation and Utilities Currently or been in a relationship where the following occur: Controlled Emotionally THRIVE Score: 4 AUDIT C Alcohol Use Questionnaire (AUDIT-C) 1. How often do you have a drink containing alcohol?: Never Total Score: 0 CHEPE-7 AMB Questionnaire CHEPE-7 Date CHEPE - 7 assessed: 07/12/23 Feeling nervous, anxious, or on edge: 2 = More than half the days Not being able to stop or control worryin = Several days Worrying too much about different things: 1 = Several days Trouble relaxin = More than half the days Being so restless that it is hard to sit still: 1 = Several days Becoming easily annoyed or irritable: 1 = Several days Feeling afraid as if something awful might happen: 1 = Several days Total CHEPE-7 score (0-4 normal; 5-9 mild; 10-14 moderate; 15-21 severe): 9 Source: Developed by Drs. Jagjit Osman, Gracia Kowalski, Emilio Wong and colleagues, with an educational luisa from [employer]. Review of Systems Const All systems reviewed & are unremarkable except as noted in HPI and below Denies fatigue Eyes Details: Reports no additional complaints ENT Reports no additional complaints Card Denies chest pain, Denies irregular heart rhythm, Denies lightheadedness and Denies dyspnea Resp Denies cough and Denies dyspnea GI Denies abdominal pain, Denies melena and Denies change in bowel habits Reports no additional complaints Musc Reports muscle cramps and Reports stiffness Neuro Reports no additional complaints Psych Reports as per HPI Endo Denies cold intolerance, Denies fatigue and Denies heat intolerance Andrés/Lymph Reports no additional complaints Aller/Immun Reports no additional complaints Physical exam (Primary Care) Vital Signs: Last Vital Signs Pulse 64 02/17/24 14:32 BP 100/60 02/17/24 14:32 Pulse Ox 98 02/17/24 14:32 Oxygen Delivery Method Room Air 02/17/24 14:32 BMI result Body Mass Index 21.0 Tobacco/Smoking Status: Tobacco use Status Tobacco use date assessed 02/17/24 02/17/24 14:38 Patient Tobacco Use Status Never used Tobacco 02/17/24 14:21 e-Cigarette/Vaping Use Never Used 02/17/24 14:21 PHQ-9: PHQ-9 Score PHQ-9: Total score 7 02/17/24 15:17 Depression Screening Interpretation: Positive Depression Screening Follow-up: Existing condition, In treatment and Other (scheduled for ECT ) Thrive Assessment: Date of Thrive Assessment Date Thrive assessed 02/15/24 02/17/24 14:21 Currently or been in a relationship where the following occur: Controlled Emotionally Const General: comfortable and no acute distress Orientation/consciousness: patient oriented x3 HENMT Mouth: Normal oral and palatal mucosa present, oropharynx normal and moist mucous membranes Eyes General: appearance normal, both eyes and all related structures Neck Neck: Yes full ROM, Yes no lymphadenopathy and Yes supple Resp Effort & Inspection: normal respiratory effort and able to speak in complete sentences Auscultation: clear to auscultation bilaterally Cardio Rate: regular rate Rhythm: regular rhythm Heart sounds: S1 normal heart sound present and S2 normal heart sound present GI Inspection: Yes normal to inspection Palpation (GI): Soft to palpation and nontender Auscultation: normal bowel sounds General: Yes no CVA tenderness Back/Spine/Pelvis Back: no CVA tenderness Skin General skin exam: no rashes or lesions noted Neuro General: patient oriented x3, gait normal, tone normal, moves all extremities, Normal light touch and pain sensation and no focal motor deficits Cognition (Neuro): normal cognition Gait exam (Neuro): Normal gait present Motor exam (neuro): 5/5 motor strength present throughout Extrem General: Yes full ROM, Yes no joint enlargement and Yes no clubbing, cyanosis or edema Psych Appearance: grossly normal and well kempt Mental Status: mental status grossly normal Affect: normal affect Results Reviewed Results Reviewed: Name: Lien Jerry Age/Sex: 73/F : 1950 Unit#: [id number] Attend Dr: Dada Maria MD Re01/29/24 Status: [facility]P [facility] Disch: SPEC : [id number] LOLA: 01/29/24 STATUS: COMP REQ : [id number] RECD: 01/29/[address]: Dada Maria MD COMP: 01/29/24 ENTERED: 01/29/[address]: Diamond Montgomery MD [facility] ED Physician ORDERED: CBC No Diff Test Result Flag Reference WBC 7.0 4.8-10.8 X10*3/ uL RBC 3.55 L 4.20-5.50 X10*6/uL HGB 11.4 L 12.0-16.0 g/dl HCT 34.5 L 37.0-47.0 % MCV 97.2 80.0-98.0 fL MCH 32.1 27.0-33.0 pg MCHC 33.0 31.0-35.0 g/dl RDW 12.1 11.0-16.0 % PLT 276 # 160-400 X10*3/uL MPV 8.6 L 9.4-12.3 fL NRBC Pct Auto 0.0 0.0-0.2 /100WBC NRBC Abs Auto 0.000 0.0-0.012 X10*3/uL Name: Lien Jerry Age/Sex: 73/F : 1950 Unit#: [id number] Attend Dr: Dada Maria MD Re01/29/24 Status: DEP [facility] Disch: SPEC : [id number] LOLA: 01/29/24 STATUS: COMP REQ : [id number] RECD: 01/29/[address]: Dada Maria MD COMP: 01/29/24 ENTERED: 01/29/[address]: Diamond Montgomery MD [facility] ED Physician ORDERED: CMP, Ethanol Test Result Flag Reference Sodium 142 135-145 mmol/L Potassium 4.5 3.3-5.1 mmol/L CL 104 96-108 mmol/L CO2 27 22-29 mmol/L Gap 16 12-20 BUN 30 H 9-16 mg/dL Creat 1.25 0.5-1.4 mg/dL Estimated CrCl 37.0 Provided height and weight: 167.64 cm, 57.6 kg. eGFR (calculated from the MDRD study equation) and eCrCl (calculated from the Cockcroft-Gault equation) are based on different parameters and may not yield comparable results. If eCrCl result is absurd, please check patient's height/weight. eGFR 42 Chronic Kidney Disease: Estimated GFR < 60 mL/min/1.73m2 Severe Kidney Disease: Estimated GFR < 15 mL/min/1.73m2 Glucose, Random 82 60-115 mg/dL CA 10.1 8.4-10.2 mg/dL Total Bili 0.2 0.0-1.0 mg/dL AST (GOT) 19 5-31 U/L ALT (GPT) 7 0-31 U/L Protein, Total 7.0 6.5-8.0 g/dL Alb 4.2 3.5-5.0 g/dL Alk Phos 77 39-117 U/L Ethanol < 10 mg/dL Date of Service: 02/13/24 Procedure(s): ECG 12 lead EKG Accession Number(s): [id number] cc: Diamond Montgomery MD~ Test Reason : ptsd Blood Pressure : / mmHG Vent. Rate : 081 BPM Atrial Rate : 081 BPM P-R Int : 128 ms QRS Dur : 078 ms QT Int : 356 ms P-R-T Axes : 079 046 049 degrees QTc Int : 413 ms Normal sinus rhythm with sinus arrhythmia Normal ECG When compared with ECG of 18-DEC-2023 07:46, No significant change was found Coding Level of Care Code Est Pt Level 4 (17155) Complex EM visit Add On G2211 Diagnoses Preoperative examination Z01.818 Polycystic kidney disease Q61.3 Age-related osteoporosis without current pathological fracture M81.0 Osteoporosis type: age-related Presence of current pathological fracture: without current pathological fracture Parkinson's disease without dyskinesia or fluctuating manifestations G20.A1 Major depression with psychotic features F32.3 COPD (chronic obstructive pulmonary disease) J44.9 Stage 3a chronic kidney disease N18.31 Chronic kidney disease stage 3 subtype: stage 3a (GFR 45-59) Hyperparathyroidism E21.3 PTSD (post-traumatic stress disorder) F43.10 Anemia due to stage 3 chronic kidney disease, unspecified whether stage 3a or 3b CKD N18.30; D63.1 Anemia type: due to chronic kidney disease Chronic kidney disease stage: stage 3 (moderate) Chronic kidney disease stage 3 subtype: unspecified whether 3a or 3b Assessment & Plan Assessment & Plan (1) Preoperative examination: Code(s): Z01.818 - Encounter for other preprocedural examination (2) Polycystic kidney disease: Code(s): Q61.3 - Polycystic kidney, unspecified Category: Medical (3) Osteoporosis: Code(s): M81.0 - Age-related osteoporosis without current pathological fracture Category: Medical Qualifiers: Osteoporosis type: age-related Presence of current pathological fracture: without current pathological fracture Qualified Code(s): M81.0 - Age- related osteoporosis without current pathological fracture (4) Parkinson's disease without dyskinesia or fluctuating manifestations: Code(s): G20.A1 - Parkinson's disease without dyskinesia, without mention of fluctuations Category: Medical (5) Major depression with psychotic features: Code(s): F32.3 - Major depressive disorder, single episode, severe with psychotic features Category: Medical (6) COPD (chronic obstructive pulmonary disease): Code(s): J44.9 - Chronic obstructive pulmonary disease, unspecified Category: Medical (7) CKD (chronic kidney disease), stage III: Code(s): N18.30 - Chronic kidney disease, stage 3 unspecified Category: Medical Qualifiers: Chronic kidney disease stage 3 subtype: stage 3a (GFR 45-59) Qualified Code(s): N18.31 - Chronic kidney disease, stage 3a (8) Hyperparathyroidism: Comment: ff'd by dr preston Code(s): E21.3 - Hyperparathyroidism, unspecified Category: Medical (9) PTSD (post-traumatic stress disorder): Comment: Dr Cheyanne Morejon , and sees therapist [facility] Code(s): F43.10 - Post-traumatic stress disorder, unspecified Category: Medical (10) Anemia: Code(s): D64.9 - Anemia, unspecified Category: Medical Qualifiers: Anemia type: due to chronic kidney disease Chronic kidney disease stage: stage 3 (moderate) Chronic kidney disease stage 3 subtype: unspecified whether 3a or 3b Qualified Code(s): N18.30 - Chronic kidney disease, stage 3 unspecified; D63.1 - Anemia in chronic kidney disease Plan - Continue ECT as directed by Dr. Shearer once clearance is obtained. - Maintain adherence to prescribed medications for depression, Parkinson's, asthma, GERD, and insomnia. - Obtain the high-dose influenza vaccine from a pharmacy. - Confirm Shingrix vaccination status and consider scheduling the second dose upon confirmation with insurance. - Engage in physical therapy for management of Parkinson's-related rigidity and back pain. - Monitor bowel movements and continue use of Famotidine for IBS and GERD symptoms. - Follow up with all recommended specialists as needed, ensuring collaboration with the given care team. - Reach out for community transportation services as necessary. - Maintain regular check-ups for all diagnosed chronic conditions to ensure stability and growth. - Alert any notable changes in health or side effects from ECT or ongoing medications.
[2024-02-17 14:32] VITALS: BP 100/60; PULSE 64; O2SAT 98; BMI 21.0
== END 2024-02-17 15:14 | disposition home or self-care (01) ==
PROVIDERS: PCP Internal Medicine; Visit Provider Internal Medicine
DX: Z01.818 Encounter for other preprocedural examination (principal); Q61.3 Polycystic kidney, unspecified; M81.0 Age-related osteoporosis without current pathological fracture; G20.A1 Parkinson's disease without dyskinesia, without mention of fluctuations; F32.3 Major depressive disorder, single episode, severe with psychotic features; J44.9 Chronic obstructive pulmonary disease, unspecified; N18.31 Chronic kidney disease, stage 3a; E21.3 Hyperparathyroidism, unspecified; F43.10 Post-traumatic stress disorder, unspecified; N18.30 Chronic kidney disease, stage 3 unspecified; D63.1 Anemia in chronic kidney disease

== ENCOUNTER → 2024-02-17 13:40 | Outpatient (BNVA) | payer MEDICARE, MEDICAID, SELFPAY | PROVIDERS: PCP Internal Medicine; Visit Provider Internal Medicine | DX: Z01.818 Encounter for other preprocedural examination (principal); Q61.3 Polycystic kidney, unspecified; M81.0 Age-related osteoporosis without current pathological fracture; G20.A1 Parkinson's disease without dyskinesia, without mention of fluctuations; F32.3 Major depressive disorder, single episode, severe with psychotic features; J44.9 Chronic obstructive pulmonary disease, unspecified; N18.31 Chronic kidney disease, stage 3a; D63.1 Anemia in chronic kidney disease; E21.3 Hyperparathyroidism, unspecified; F43.10 Post-traumatic stress disorder, unspecified | CPT/HCPCS: 96127; 99212 ==

== ENCOUNTER 2024-03-02 05:56 | Day surgery (SDC) | payer MEDICARE, MEDICAID, SELFPAY ==
[2024-03-02] VITALS (7 sets, daily range): BP systolic 132–150; BP diastolic 61–74; PULSE 63–87; RESP 16; TEMP 36.1–37; O2SAT 99–100; BMI 18.6
--- OUTSIDE RECORDS SUMMARY | 2024-03-02 05:59 | XMS_ITS | Patient Health Record ---
Author Organization [facility] Address [address] [place] [address] Care Team Providers Care Motorcycle Service Technician Name Role Phone Ulises RASMUSSEN, Diamond Primary Care Provider Jagjit Pérez Unavailable [phone] ALLERGIES Allergen (clinical drug ingredient) Drug/Non Drug [...] Esophageal reflux (K21.9) Active confirmed Esophageal reflux (348025205) Problem Encounter for screening for malignant neoplasm of colon (Z12.11) Active confirmed 976887851 Problem Weight loss (R63.4) Active confirmed 89 865086 Problem Gastric polyp (K31.7) Active confirmed Gastric polyp (93538485) Problem Gastritis (K29.70) Active confirmed Gas tritis (8170509) Problem Diarrhea, unspecified type (R19.7) Active confirmed 48856681 Problem Irritable bowel syndrome with both constipation and diarrhea (K58.2) Active confirmed 27845689 Problem Diverticulosis of colon (K57.30) Active confirmed Diverticulosi s of colon (291332062) Problem Gastric adenoma (D13.1) Active confirmed 28374313 Problem Gastroesophageal reflux disease, unspecified whether esophagitis present (K21.9) Active confirmed 926305961 Problem Nausea and vomiting, unspecified vomiting type (R11.2) Active confirmed 60628640 VITAL SIGNS Temperature 97.5 degrees Fahrenheit 12/18/2023 Blood pressure diastolic 00 mm Hg 12/18/2023 Height 66 in 12/18/2023 Blood pressure systolic 000 mm Hg 12/18/2023 Weight 124 lb 6 oz lbs 12/18/2023 BMI 20.07 kg/m2 12/18/2023 Encounters Encounter Location Date Provider Diagnosis [facility] [address] [place] [phone] 12/18/2023 Jagjit Son Irritable bowel synd damian with both constipation and diarrhea K58.2 and Gastroesophageal reflux disease, unspecified whether esophagitis present K21.9 [facility] [address] [place] [phone] 08/26/2023 Jagjit Son ASSESSMENTS Encounter Date Diagnosis [...] End Date Aetna (No Referral) [address] [address] [place], [place] [address] [id number] HE CRAIG Self - patient is the insured MEDICAID OF [employer] [address] [place] [address] [id number] HE CRAIG Self - patient is the insured MEDICAL (GENERAL) HISTORY Medical History History ICD Code COPD/Asthma IBS PTSD/Depression Denies [place],DM,CVA,renal disease GERD Upper endo in 05/2011 with [...]
--- OUTSIDE RECORDS SUMMARY | 2024-03-02 05:59 | XMS_ITS ---
Author Organization [facility] Address [address] [place] [phone] Care Team Providers Care Biometric Screener Name Role Phone Diamond Montgomery MD Primary Care Provider Jagjit Pérez Unavailable [phone] ALLERGIES Allergen (clinical drug ingredient) Drug/Non Drug [...] Provider Diagnosis [facility] [address] [place] [address] 12/18/2023 Jagjit Son Irritable bowel synd damian [...]
--- OUTSIDE RECORDS SUMMARY | 2024-03-02 05:59 | XMS_ITS | Clinical Summary ---
Author Organization Unknown Care Team Providers Care International Project Engineer Name Role Phone YAIMA RASMUSSEN, KAVITA BEST Unavailable Unav agata SPEARS RN, SNEHAL Unavailable Unavailable Payers Payer Name Policy Type Policy Number Effective Date Expira tion Date ZZZ [employer] MEDICARE ADVANTAGE FFS [id number] MEDICARE - [place] - PDGM [id number] Problems Condition Name Condition Details Condition Category [...] on aerosol inhaler 06-25 00:00: 00 Yes [id number] 2 puff DIRECTED 2 puff DIRECTED (route: inhalation ) Med Classific ation: Respirato ry Therapy Agents bupropion HCl XL 300 mg 24 hr tablet, extended release 06-25 00:00: 00 Yes [id number] 1 tablet DAILY 1 tablet DAILY (route: oral) Med Classific ation: Central Nervous System Agents carbidopa 25 mg-levodopa 100 mg tablet 06-25 00:00: 00 Yes [id number] 1.5 tablet 4 TIMES DAILY 1.5 tablet 4 TIMES DAILY (route: oral) Med Classific ation: Central Nervous System Agents famotidine 40 mg tablet 2024-0 4-17 00:00: 00 09-01 23:59 :00 No [id number] 1 tablet DAILY 1 tablet DAILY (route: oral) Med Classific ation: Gastroint estinal Therapy Agents paroxetine 40 mg tablet 17 00:00: 00 Yes [id number] 1 tablet DAILY 1 tablet DAILY (route: oral) Med Classific ation: Central Nervous System Agents trazodone 50 mg tablet 17 00:00: 00 Yes [id number] Per instruc tions BEDTIME Per instructio ns BEDTIME (route: oral) Med Classific ation: Central Nervous System Agents gabapentin 100 mg capsule 5-24 00:00: 00 Yes [id number] pain Per instruc tions BEDTIME Per instructio ns BEDTIME (route: oral) Med Classific ation: Central Nervous System Agents omeprazole 40 mg capsule,del ayed release 24 00:00: 00 Yes [id number] 1 capsule DAILY 1 capsule DAILY (route: oral) Med Classific ation: Gastroint estinal Therapy Agents gabapentin 100 mg capsule 2023-03 0- 00:00: 00 Yes [id number] Per instruc tions 2 TIMES DAILY Per instructio ns 2 TIMES DAILY (route: oral) Med Classific ation: Central Nervous System Agents Vital Signs Vital Name Observation Time Observation Value Commen ts Pulse 2024-02-26 10:17:00.000 65 /min Pulse 2024-02-19 09:35:00.000 70 /min Pulse 2024-02-17 10:45:00.000 70 /min Pulse 2024-02-12 12:46:00.000 68 /min Pulse 2024-02-07 10:31:00.000 74 /min Pulse 2024-02-05 10:39:00.000 70 /min Pulse 2024-01-31 11:16:00.000 64 /min Pulse 2024-01-27 11:35:00.000 76 /min O2 Saturation (%) 2024-02-26 10:18:00.000 98 % O2 Saturation (%) 2024-02-19 09:40:00.000 97 % O2 Saturation (%) 2024-02-12 12:49:00.000 96 % O2 Saturation (%) 2024-01-31 11:27:00.000 96 % Respirations 2024-02-26 10:17:00.000 20 /min Respirations 2024-02-19 09:35:00.000 20 /min Respirations 2024-02-17 10:45:00.000 20 /min Respirations 2024-02-12 12:46:00.000 20 /min Respirations 2024-02-07 10:31:00.000 20 /min Respirations 2024-02-05 10:39:00.000 20 /min Respirations 2024-01-31 11:16:00.000 20 /min Respirations 2024-01-27 11:35:00.000 20 /min Weight (lbs) 2024-02-19 09:41:00.000 115 [lb_av] Systolic Blood Pressure 2024-02-26 10:17:00.000 110 mm [Hg] Systolic Blood Pressure 2024-02-19 09:35:00.000 116 mm [Hg] Systolic Blood Pressure 2024-02-17 10:45:00.000 122 mm [Hg] Systolic Blood Pressure 2024-02-12 12:46:00.000 110 mm [Hg] Systolic Blood Pressure 2024-02-07 10:31:00.000 122 mm [Hg] Systolic Blood Pressure 2024-02-05 10:39:00.000 118 mm [Hg] Systolic Blood Pressure 2024-01-31 11:16:00.000 120 mm [Hg] Systolic Blood Pressure 2024-01-27 11:35:00.000 118 mm [Hg] Diastolic Blood Pressure 2024-02-26 10:17:00.000 60 mm [Hg] Diastolic Blood Pressure 2024-02-19 09:35:00.000 64 mm [Hg] Diastolic Blood Pressure 2024-02-17 10:45:00.000 68 mm [Hg] Diastolic Blood Pressure 2024-02-12 12:46:00.000 60 mm [Hg] Diastolic Blood Pressure 2024-02-07 10:31:00.000 [...] AWARENESS FOR SAFETY AND WILL NOTIFY CLINICAL CLAIMS SPECIALIST AND PHYSICIAN/PROVIDER WITH ANY CHANGE IN CONDITION. [code = SKILLED NURSE WILL MAINTAIN SITUATIONAL AWARENESS FOR SAFETY AND WILL NOTIFY CLINICAL CLAIMS SPECIALIST AND PHYSICIAN/PROVIDER WITH ANY CHANGE IN CONDITION.] [...] HOW AND WHEN TO REPORT PROBLEMS.] Goal Patient Goal - TO STAY HEALT HY Goal 2024-01-20 Patient Goal - TO GET THINGS ORGANIZED Goal 2023-11-22 Patient Goal - CONTINUE TO F EEL GOOD Goal Provider Goal - A PLAN OF CARE WILL BE ESTABLISHED THAT MEETS PATIENT'S [facility] NEEDS AND INCLUDES PATIENT GOAL FOR HOME [...] BY THE END OF THE CERTIFICATION PERIOD. Progress Notes Progress Notes <paragraph>[Visit Date: 2023 by SNEHAL SPEARS RN]:</paragraph><paragraph>I</paragraph> Encounters Start Date/Time End Date/Time Encounter Type Admission Type Attending Clinicians Care Facility Care Department Encounter ID Discharge Date Discharge Status Discharge Condition Discharge Reason Percent Goals Met 2023-09-27 00:00:00 2024-03-24 00:00:00 [facility] [id number] 70.00
--- OUTSIDE RECORDS SUMMARY | 2024-03-02 05:59 | XMS_ITS | Clinical Summary ---
Author Organization Unknown Care Team Providers Care Cloth Colorer Name Role Phone YAIMA RASMUSSEN, KAVITA BEST Unavailable Unav agata SPEARS RN, SNEHAL Unavailable Unavailable Payers Payer Name Policy Type Policy Number Effective Date Expira tion Date ZZZ [employer] MEDICARE ADVANTAGE FFS [id number] MEDIC[place] - [place] PDGM [id number] Problems Condition Name Condition Details Condition Category [...] on aerosol inhaler 06-25 00:00: 00 Yes [id number] 2 puff DIRECTED 2 puff DIRECTED (route: inhalation ) Med Classific ation: Respirato ry Therapy Agents bupropion HCl XL 300 mg 24 hr tablet, extended release 06-25 00:00: 00 Yes [id number] 1 tablet DAILY 1 tablet DAILY (route: oral) Med Classific ation: Central Nervous System Agents carbidopa 25 mg-levodopa 100 mg tablet 06-25 00:00: 00 Yes [id number] 1.5 tablet 4 TIMES DAILY 1.5 tablet 4 TIMES DAILY (route: oral) Med Classific ation: Central Nervous System Agents famotidine 40 mg tablet 2024-0 4-17 00:00: 00 09-01 23:59 :00 No [id number] 1 tablet DAILY 1 tablet DAILY (route: oral) Med Classific ation: Gastroint estinal Therapy Agents paroxetine 40 mg tablet 17 00:00: 00 Yes [id number] 1 tablet DAILY 1 tablet DAILY (route: oral) Med Classific ation: Central Nervous System Agents trazodone 50 mg tablet 17 00:00: 00 Yes [id number] Per instruc tions BEDTIME Per instructio ns BEDTIME (route: oral) Med Classific ation: Central Nervous System Agents gabapentin 100 mg capsule 5-24 00:00: 00 Yes [id number] pain Per instruc tions BEDTIME Per instructio ns BEDTIME (route: oral) Med Classific ation: Central Nervous System Agents omeprazole 40 mg capsule,del ayed release 24 00:00: 00 Yes [id number] 1 capsule DAILY 1 capsule DAILY (route: oral) Med Classific ation: Gastroint estinal Therapy Agents gabapentin 100 mg capsule 2023-03 0- 00:00: 00 Yes [id number] Per instruc tions 2 TIMES DAILY Per [...] AWARENESS FOR SAFETY AND WILL NOTIFY CLINICAL SIGN HANGER AND PHYSICIAN/PROVIDER WITH ANY CHANGE IN CONDITION. [code = SKILLED NURSE WILL MAINTAIN SITUATIONAL AWARENESS FOR SAFETY AND WILL NOTIFY CLINICAL SIGN HANGER AND PHYSICIAN/PROVIDER WITH ANY CHANGE IN CONDITION.] [...] CARE WILL BE ESTABLISHED THAT MEETS PATIENT'S INTERMEDIATE NEEDS AND INCLUDES PATIENT GOAL FOR HOME [...] Goals Met 2023-09-27 00:00:00 2024-03-24 00:00:00 [facility] [id number] 70.00
--- OUTSIDE RECORDS SUMMARY | 2024-03-02 05:59 | XMS_ITS ---
Author Organization [facility] Address [address] [place] [id number] Care Team Providers Care Refrigeration Plant Operator Name Role Phone Diamond Montgomery MD Primary Care Provider Jagjit Pérez Unavailable [phone] REASON FOR VISIT IBS MEDICATIONS Medication SIG (Take, Route, Fr equency, Duration) Notes Start Date End Date Status Omeprazole 20 MG One daily Orally Onc e every morning for 90 days Active Encounters Encounter Location Date Provider Diagnosis [facility] [address] [place] [id number] 08/26/2023 Jagjit Son PLAN OF TREATMENT Medication Medication Name Sig Start Date Stop Date Notes Omeprazole 20 MG One daily Orally Onc e every morning for 90 days
--- NOTE | 2024-03-02 07:02 | MHC.SHP ---
Pre-Procedural Eval Section A - 24 Hr Update-Section A only Date of Service: 03/02/24 The patient is an INPATIENT: No Changes since office visit: Yes Cold of Flu in the past 2 weeks, Yes New Medical Problems, Yes Changes in Medication and Yes Patient answered all questions The patient has been examined within 24 hours of the surgical procedure. The History & Physical has been completed within 30 days and I have reviewed it.: Yes Section B - Complete if H&P > 30 days Chief Complaint: Major depressive disorder, recurrent, severe with Details of Present Illness: Reports stable mood, recently started on Gabapentin tid Relevant Family History (Specify if Yes): No Relevant Social History: None Present Medications: see Short Stay Collaborative assessment Medical History: No relevant PMH History of Previous Operations: No relevant previous surgery Allergies: Allergies Allergy/AdvReac Type Severity Reaction Status Date / Time tomato [TOMATO] Allergy Severe ANAPHYLAXIS Verified 02/17/24 14:54 Sulfa (Sulfonamide Allergy Intermediate shaky, ORBLES Verified 02/17/24 14:54 Antibiotics) albuterol Allergy Unknown Unknown Verified 02/17/24 14:54 metoclopramide [Reglan] Allergy Unknown Unknown Verified 02/17/24 14:54 quetiapine [From Seroquel] AdvReac Severe Hallucinati Verified 02/17/24 14:54 ons Review of Systems Sugical H&P ROS: Negative: Constitution, Cardiovascular, Respiratory, Neurological, Psychiatric, Hem-Onc, Allergic/Immunologic, Gastrointestinal, Genitourinary, Musculoskeletal, Integumentary, Endocrine and Eyes/Ears/Nose/Throat Exam Surgical H&P Exam: Normal: HEENT, Normal: Heart, Normal: Lungs, Normal: Extremities, Normal: Abdomen, Normal: Skin and Normal: Neurological Plan Diagnosis/Plan: Unchanged I have reviewed the history and physical and performed a pertinent physical examination on my patient. No changes have occurred unless specified. Time Spent With Patient Time: Total time managing care of this patient today _20___ minutes.
--- NOTE | 2024-03-02 07:22 | HO.ECTPROC ---
ECT Procedure Note Diagnosis/Treatment Date of Service: 03/02/24 Diagnosis: Major Depressive Disorder Previous ECT Date: 01/08/24 Treatment: Maintenance Interval Clinical Notes: The patient reported euthymia, recently Gabapentin was added. No side effects with the previous ECT. ECT done as usual, no complications, the patient woke up well. Time: Total time managing care of this patient today ____ minutes. ECT Settings Device: THYMATRON DGx Electrode Placement: Right Unilateral Program/Pulse Width: 0.25 Energy Percent: 100 Seizure Duration By EEG (in seconds): 0 (seizure activity noted until 39s) By Motor Observation (in seconds): 33 Medications Administration General Anesthetic: Etomidate (12) Muscle Relaxant: Succinylcholine (80) Ancillary Medications Analgesics: Torodol - Pre ECT Anti-emetics: Zofran - Pre ECT Miscillaneous Medications: Propofol (30 mg after ECT) Airway Management Airway Management: Bag Mask Ventilation Treatment Recommendations No Changes Recommended: No change Pt Tolerated Procedure w/o Issue: Yes
--- NOTE | 2024-03-02 08:25 | P.CONAN_ITS ---
[facility] Active Problems Active Problems: All Active Problems Polycystic kidney disease (Acute) Osteoporosis (Acute) Restless legs syndrome (RLS) (Acute) Parkinson's disease without dyskinesia or fluctuating manifestations (Acute) Major neurocognitive disorder due to another medical condition, with psychotic disturbance (Acute) Major depression with psychotic features (Acute) Environmental allergies (Acute) Sleep disorder (Acute) Anemia (Acute) COPD (chronic obstructive pulmonary disease) (Acute) CKD (chronic kidney disease), stage III (Acute) PTSD (post-traumatic stress disorder) (Acute) Hyperparathyroidism (Acute) Multinodular thyroid (Acute) Past Medical History Medical History (Updated 02/20/24 @ 02:15 by Diamond Montgomery MD) Low back pain Back pain Osteoporosis Restless legs syndrome (RLS) Parkinson's disease without dyskinesia or fluctuating manifestations History of uterine cancer Parkinson's disease without dyskinesia Sleep disorder Anemia CKD (chronic kidney disease), stage III PTSD (post-traumatic stress disorder) Hyperparathyroidism Family history of malignant neoplasm of endometrium Polycystic kidney disease Multinodular thyroid Back pain GERD (gastroesophageal reflux disease) Chronic fatigue IBS (irritable bowel syndrome) Fibromyalgia COPD (chronic obstructive pulmonary disease) Family History Family History Father COPD (chronic obstructive pulmonary disease) Mother Arteriosclerosis Breast cancer, Onset Age: 80 Sister Diabetes mellitus Breast cancer, Onset Age: 70 Brother Bone cancer History of pituitary cancer Family history of problems with anesthesia: No Surgical History Surgical History Hx laparoscopic cholecystectomy History of esophagogastroduodenoscopy (EGD) H/O colonoscopy History of left breast biopsy Hx of cholecystectomy History of sinus surgery History of carpal tunnel syndrome History of total abdominal hysterectomy History of Problems with Anesthesia: No Social History Social History Household Members: None Housing: House Do you presently have visiting nurse or other home services: No Unable to assess alcohol history related to: Refusing to respond Alcohol intake: never Patient Tobacco Use Status: Never used Tobacco e-Cigarette/Vaping Use: Never Used Advance Directives: No Advance Directives Information Provided: Yes service: No Current occupational status: unemployed Sexual orientation: Straight/Heterosexual Cognitive needs: No Hearing needs: No Vision needs: Yes Meds Allergies Allergy/AdvReac Type Severity Reaction Status Date / Time tomato [TOMATO] Allergy Severe ANAPHYLAXIS Verified 02/17/24 14:54 Sulfa (Sulfonamide Allergy Intermediate TRAVIS davis Verified 02/17/24 14:54 Antibiotics) albuterol Allergy Unknown Unknown Verified 02/17/24 14:54 metoclopramide [Reglan] Allergy Unknown Unknown Verified 02/17/24 14:54 quetiapine [From Seroquel] AdvReac Severe Hallucinati Verified 02/17/24 14:54 ons Home Medications ?Medication ?Instructions ?Recorded ?Confirmed ?Last Taken ?Type bupropion HCl 300 mg 24 hr tablet, 300 mg PO QAM 02/22/20 02/17/24 05/30/23 08:00 History extended release paroxetine HCl 40 mg tablet 40 mg PO DAILY 04/13/23 02/17/24 05/30/23 08:00 History famotidine 40 mg tablet 40 mg PO QAM 01/30/24 02/17/24 Unknown History Exam Height,Weight and Vital Signs: Height 5 ft 6 in Weight 52.163 kg Last Vital Signs Temp 98.6 F 03/02/24 07:31 Pulse 74 03/02/24 08:15 Resp 16 03/02/24 08:15 BP 132/61 03/02/24 08:15 Pulse Ox 99 03/02/24 08:15 O2 Del Method Room Air 03/02/24 08:15 Airway Mallampati Class: III TM Dist: >3cm Neck ROM: Full Assessment and Plan Assessment Anesthesia Assessment: Anesthesia Plan Discussed and Chart Reviewed Final Anesthetic Review Family History of Problems with Anesthesia: No History of Problems with Anesthesia: No NPO: Yes ASA Class: III Final Preanesthetic Review: No Changes in Pt Med Stat, Meds/Allgs Chart Reviewed, Consent Obtained/Reviewed, Anes Risks/Benef Reviewed and DNR Form (If Appl.) Patient Risk: Intermediate Procedure Risk: Low Anesthetic Plan Anesthetic Plan: GA Disposition: Standard PACU
== END 2024-03-02 08:56 | disposition home or self-care (01) ==
PROVIDERS: PCP Internal Medicine; Visit Provider Psychiatry & Neurology Psychiatry
PROC: (CPT 90870; principal; 2024-03-02 07:00)
DX: F33.3 Major depressive disorder, recurrent, severe with psychotic symptoms (principal); F43.10 Post-traumatic stress disorder, unspecified; G20.A1 Parkinson's disease without dyskinesia, without mention of fluctuations; J44.9 Chronic obstructive pulmonary disease, unspecified; N18.31 Chronic kidney disease, stage 3a; D63.1 Anemia in chronic kidney disease; Q61.3 Polycystic kidney, unspecified; M79.7 Fibromyalgia; M81.0 Age-related osteoporosis without current pathological fracture; E21.3 Hyperparathyroidism, unspecified; Z85.42 Personal history of malignant neoplasm of other parts of uterus; Z79.899 Other long term (current) drug therapy; Z88.2 Allergy status to sulfonamides; Z88.8 Allergy status to other drugs, medicaments and biological substances; Z90.49 Acquired absence of other specified parts of digestive tract; Z98.890 Other specified postprocedural states; Z56.0 Unemployment, unspecified
CPT/HCPCS: 90870; J0330; J1885; J2405; J2704

== ENCOUNTER → 2024-03-02 05:56 | Outpatient (BNV) | payer MEDICARE, MEDICAID, SELFPAY | PROVIDERS: PCP Internal Medicine; Visit Provider Psychiatry & Neurology Psychiatry | DX: F33.3 Major depressive disorder, recurrent, severe with psychotic symptoms (principal) | CPT/HCPCS: 90870 ==

== ENCOUNTER 2024-04-20 13:47 | Outpatient (REF) | payer MEDICARE, MEDICAID, SELFPAY ==
--- OUTSIDE RECORDS SUMMARY | 2024-04-20 14:55 | XMS_ITS | Clinical Summary ---
Author Organization Unknown Care Team Providers Care Coding Machine Operator Name Role Phone YAIMA RASMUSSEN, KAVITA BEST Unavailable Unav agata SPEARS RN, SNEHAL Unavailable Unavailable Payers Payer Name Policy Type Policy Number Effective Date Expira tion Date ZZZ [employer] MEDICARE ADVANTAGE FFS [id number] MEDICARE - [place] PDGM [id number] Problems Condition Name Condition Details Condition Category [...] on aerosol inhaler 06-25 00:00: 00 Yes [id number] 2 puff DIRECTED 2 puff DIRECTED (route: inhalation ) Med Classific ation: Respirato ry Therapy Agents bupropion HCl XL 300 mg 24 hr tablet, extended release 06-25 00:00: 00 Yes [id number] 1 tablet DAILY 1 tablet DAILY (route: oral) Med Classific ation: Central Nervous System Agents carbidopa 25 mg-levodopa 100 mg tablet 06-25 00:00: 00 Yes [id number] 1.5 tablet 4 TIMES DAILY 1.5 tablet 4 TIMES DAILY (route: oral) Med Classific ation: Central Nervous System Agents famotidine 40 mg tablet 2024-0 4-17 00:00: 00 09-01 23:59 :00 No [id number] 1 tablet DAILY 1 tablet DAILY (route: oral) Med Classific ation: Gastroint estinal Therapy Agents paroxetine 40 mg tablet 17 00:00: 00 Yes [id number] 1 tablet DAILY 1 tablet DAILY (route: oral) Med Classific ation: Central Nervous System Agents trazodone 50 mg tablet 17 00:00: 00 Yes [id number] Per instruc tions BEDTIME Per instructio ns BEDTIME (route: oral) Med Classific ation: Central Nervous System Agents gabapentin 100 mg capsule 5-24 00:00: 00 Yes [id number] pain Per instruc tions BEDTIME Per instructio ns BEDTIME (route: oral) Med Classific ation: Central Nervous System Agents omeprazole 40 mg capsule,del ayed release 24 00:00: 00 Yes [id number] 1 capsule DAILY 1 capsule DAILY (route: oral) Med Classific ation: Gastroint estinal Therapy Agents gabapentin 100 mg capsule 2023-03 0- 00:00: 00 Yes [id number] Per instruc tions 2 TIMES DAILY Per instructio ns 2 TIMES DAILY (route: oral) Med Classific ation: Central Nervous System Agents Vital Signs Vital Name Observation Time Observation Value Commen ts Pulse 2024-04-15 11:49:00.000 76 /min Pulse 2024-04-13 11:10:00.000 71 /min Pulse 2024-04-10 10:46:00.000 78 /min Pulse 2024-04-06 09:55:00.000 70 /min Pulse 2024-04-01 09:59:00.000 74 /min Pulse 2024-03-30 09:53:00.000 68 /min Pulse 2024-03-27 10:29:00.000 67 /min O2 Saturation (%) 2024-04-15 11:50:00.000 96 % O2 Saturation (%) 2024-04-13 11:11:00.000 97 % O2 Saturation (%) 2024-04-10 10:52:00.000 97 % O2 Saturation (%) 2024-04-06 09:56:00.000 96 % O2 Saturation (%) 2024-04-01 09:59:00.000 96 % O2 Saturation (%) 2024-03-30 09:54:00.000 97 % O2 Saturation (%) 2024-03-27 10:29:00.000 97 % Respirations 2024-04-15 11:49:00.000 20 /min Respirations 2024-04-13 11:10:00.000 20 /min Respirations 2024-04-10 10:46:00.000 20 /min Respirations 2024-04-06 09:55:00.000 20 /min Respirations 2024-04-01 09:59:00.000 20 /min Respirations 2024-03-30 09:53:00.000 20 /min Respirations 2024-03-27 10:29:00.000 20 /min Respirations 2024-03-25 10:06:00.000 20 /min Systolic Blood Pressure 2024-04-17 15:23:00.000 120 mm [Hg] Systolic Blood Pressure 2024-04-15 11:49:00.000 104 mm [Hg] Systolic Blood Pressure 2024-04-13 11:10:00.000 100 mm [Hg] Systolic Blood Pressure 2024-04-10 10:46:00.000 104 mm [Hg] Systolic Blood Pressure 2024-04-06 09:55:00.000 118 mm [Hg] Systolic Blood Pressure 2024-04-01 09:59:00.000 120 mm [Hg] Systolic Blood Pressure 2024-03-30 09:53:00.000 120 mm [Hg] Systolic Blood Pressure 2024-03-27 10:29:00.000 122 mm [Hg] Systolic Blood Pressure 2024-03-25 10:06:00.000 120 mm [Hg] Diastolic Blood Pressure 2024-04-17 15:23:00.000 68 mm [Hg] Diastolic Blood Pressure 2024-04-15 11:49:00.000 64 mm [Hg] Diastolic Blood Pressure 2024-04-13 11:10:00.000 58 mm [Hg] Diastolic Blood Pressure 2024-04-10 10:46:00.000 60 mm [Hg] Diastolic Blood Pressure 2024-04-06 09:55:00.000 68 mm [Hg] Diastolic Blood Pressure 2024-04-01 09:59:00.000 64 mm [Hg] Diastolic Blood Pressure 2024-03-30 09:53:00.000 72 mm [Hg] Diastolic Blood Pressure 2024-03-27 10:29:00.000 70 mm [Hg] Diastolic Blood Pressure 2024-03-25 10:06:00.000 68 mm [Hg] Plan of Treatment Planned Activity [...] AWARENESS FOR SAFETY AND WILL NOTIFY CLINICAL LOLLYPOP MACHINE OPERATOR AND PHYSICIAN/PROVIDER WITH ANY CHANGE IN CONDITION. [code = SKILLED NURSE WILL MAINTAIN SITUATIONAL AWARENESS FOR SAFETY AND WILL NOTIFY CLINICAL LOLLYPOP MACHINE OPERATOR AND PHYSICIAN/PROVIDER WITH ANY CHANGE IN CONDITION.] Future Scheduled Test SKILLED NU RSE TO O/A OF PATIENTS MENTAL/BEHAVIORAL STATUS, ASSESS VITAL SIGNS 3WK8 ALLOW 2 PRNS FOR MEDICATION MANAGEMENT. [code = SKILLED NURSE TO O/A OF PATIENTS MENTAL/BEHAVIORAL STATUS, ASSESS VITAL SIGNS 3WK8 ALLOW 2 PRNS FOR MEDICATION MANAGEMENT.] Future [...] AND HOW AND WHEN TO REPORT PROBLEMS.] Future Scheduled Test SKILLED NU RSE TO ADMINISTER MEDICATIONS 3WK8 AND PRE-POUR MEDICATIONS 1WK8 PER MEDICATION LIST. [code = SKILLED NURSE TO ADMINISTER MEDICATIONS 3WK8 AND PRE-POUR MEDICATIONS 1WK8 PER MEDICATION LIST.] Future Scheduled Test SKILLED NU RSE FOR O/A AND SKILLED TEACHING OF COPING SKILLS TO MANAGE ANXIETY AND MAINTAIN SAFETY. [code = SKILLED NURSE FOR O/A AND SKILLED TEACHING OF COPING SKILLS TO MANAGE ANXIETY AND MAINTAIN SAFETY.] Future Scheduled Test SKILLED NU RSE TO [...] AND METHODS TO MANAGE PARKINSON'S DISEASE PROGRESSION.] Goal 2023-11-22 Patient Goal - CONTINUE TO F EEL GOOD Goal 2024-01-20 Patient Goal - TO GET THINGS ORGANIZED Goal 2024-03-20 Patient Goal - TO STAY HEALT HY Goal Patient Goal - M HANS APPT WITH NEW THERAPIST Goal Provider Goal - A PLAN OF CARE WILL BE ESTABLISHED THAT MEETS PATIENT'S LONG-TERM NEEDS AND INCLUDES PATIENT GOAL FOR HOME [...] BY THE END OF THE CERTIFICATION PERIOD. Goal Provider Goal - PATIENT WILL COMPLY WITH MEDICATION WHEN SKILLED NURSE ADMINISTERS AND PRE-POURS MEDICATION THROUGHOUT CERTIFICATION PERIOD. Goal Provider Goal - PATIENT WILL BE ABLE TO PERFORM DAILY FUNCTIONS AND HAVE OPTIMAL IMPROVEMENT IN LEVEL OF ANXIETY THROUGHOUT CERTIFICATION PERIOD. Goal Provider Goal - PSYCHOSOCIAL NEEDS WILL BE IDENTIFIED AND PLAN IMPLEMENTED TO MINIMIZE RISK THROUGHOUT CERTIFICATION PERIOD. Goal Provider Goal - PATIENT/CAREGIVER WILL VERBALIZE SIGNS AND SYMPTOMS OF PARKINSON'S DISEASE AND DEMONSTRATE METHODS TO MANAGE DISEASE PROCESS BY END OF CERTIFICATION PERIOD. Progress Notes Progress Notes <paragraph>[Visit Date: 2024 by SNEHAL SPEARS RN]:</paragraph><paragraph>AO X3 AND FORGETFUL. SHE DENIES SI/HI/AVH. SHE C/O LEFT HIP PAIN 06/18. SN EDUCATED HER ON NON PHARMACOLOGICAL PAIN RELIEF MEASURES. 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 SHE IS HOMEBOUND AND ONLY ABLE TO LEAVE HOME WITH THE ASSISTANCE OF ANOTHER PERSON. SHE CONTINUES WITH A HOMEMAKER ONCE WEEKLY. SHE IS COMPLIANT WITH HER PP SCHEDULE PER HER MED BLAST FURNACE TENDER.</paragraph> <paragraph>[Visit Date: 2024 by SNEHAL SPEARS RN]:</paragraph><paragraph>AO X3 AND FORGETFUL. SHE DENIES SI/HI/AVH. SHE IS HOMEBOUND AND UNABLE TO LEAVE HOME WITHOUT ASSISTANCE D/T HER TREMORS AND DECREASED ENDURANCE. SHE DENIES ANY FALLS. SHE CONTINUES WITH A HOMEMAKER ONCE PER WEEK. AM MEDICATIONS ADMINISTERED AND MEDICATIONS PP PER MAY. SHE IS COMPLIANT PER MED BLAST FURNACE TENDER. SHE PRESENTS CLEAN AND NEAT. SN EDUCATED HER ON ADEQUATE FLUID INTAKE. 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 SHE CONTINUES TO C/O LEFT HIP AND BACK PAIN 06/18. SN EDUCATED HER ON NON PHARMACOLOGICAL PAIN RELIEF MEASURES.</paragraph> Encounters Start Date/Time End Date/Time Encounter Type Admission Type Attending [facility] Care Facility Care Department Encounter ID Discharge Date Discharge Status Discharge Condition Discharge Reason Percent Goals Met 2023-09-27 00:00:00 2024-05-23 00:00:00 Outpatient RECERTIFIC ATSNEHAL VELA [facility] [id number] 83.33
--- OUTSIDE RECORDS SUMMARY | 2024-04-20 14:55 | XMS_ITS | Clinical Summary ---
Author Organization [facility] Address [address] [place] [address] Phone Care Team Providers Care Supervisor Ship Maintenance Services Name Role Phone Christi Helms MD Primary Care Provider [phone] Allergies Active Allergy Reactions Criticality Noted Date Comments Albuterol Other (see comments) 02/23/2016 Caused mouth sores. jitteriness [place] Other (see comments) 02/23/2016 Mouth breaks out. Metoclopramide Other (see comments) Medium 02/23/2016 Uncontrolled shaking. Tomato High 02/23/2016 Epi-pen needed. Sulfamethoxazole Other (see comments) High 1 Medications carbidopa-levo dopa (SINEMET) 25-100 MG per tablet Take 1 tablet by mouth 4 (four) times a day Active buPROPion XL (WELLBUTRIN XL) 300 MG 24 hr tablet Take 1 tablet by mouth 1 (one) time each day Active gabapentin (NEURONTIN) 100 MG capsule Take 1 capsule by mouth 3 (three) times a day Active ipratropium HFA (Atrovent HFA) 17 MCG/ACT inhaler Inhale as needed Act dino PARoxetine (PAXIL) 30 MG tablet Take 1 tablet by mouth 1 (one) time each day Active EPINEPHrine (EPIPEN) 0.3 MG/0.3ML injection syringe INJECT 1 PEN INTRAMUSCULARLY EVERY 10 MIN NEEDED FOR ANAPHYLAXIS, MAX OF 2 DOSES 04/19/19 21 Active clonazePAM (KlonoPIN) 1 MG tablet Take 1 mg by mouth 3 (three) times a day 08/13/19 21 Active cholecalcifero l (VITAMIN D-3) 25 MCG (1000 UT) tablet Take 1,000 Units by mouth 1 (one) time each day 06/07/19 22 Active famotidine (PEPCID) 40 MG tablet TAKE 1 TABLET BY MOUTH TWICE A DAY FOR REFULX X30 DAYS 12/15/19 22 Active Active Problems Problem Noted Date Diagnosed Date Hypertension 07/12/2021 Stage 3a chronic kidney disease 05/11/2020 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 0 05/11/2020 Multiple renal cysts 05/11/2020 Numbness 02/24/2016 Family History Medical History Relation Comments Hypertension Father Cancer Mother Diabetes Mother Hypertension Mother Heart disease Sibling 1 Hypertension Sibling 2 Relation Status Comments Father Mother Sibling 1 Sibling 2 Social History Tobacco Use Types Packs/Day Years Used Date Smoking Tobacco: Never Smokeless Tobacco: Never Tobacco Cessation:Counseling Given: No Alcohol Use Standard Drinks/Week Comments No 0 (1 standard drink = 0.6 oz pur e alcohol) Comments Unknown Sex and Gender Information Value Date Recorded Sex Assigned at Not on file Legal Sex Female 4:52 PM EST Gender Identity Not on file Sexual Orientation Not on file Last Filed Vital Signs Vital Sign Reading Time Taken Comments Blood Pressure 118/76 01/24/2022 9:51 AM EST Pulse 62 01/24/2022 9:51 AM EST Temperature - - Respiratory Rate - - Oxygen Saturation 97% 01/24/2022 9:51 AM EST Inhaled Oxygen Concentration - - Weight 69.2 kg (152 lb 9.6 oz) 01/24/2022 9:51 A M EST Height 167.6 cm (5' 6 ) 07/01/2019 12:00 PM EDT Body Mass Index 24.63 07/01/2019 12:00 PM EDT Plan of Treatment Health Maintenance Due Date Last Done Comments Breast Cancer Screening 1950 Pneumococcal Vaccine: 65+ Ye ars (1 of 2 - PCV) 08/03/1957 Colorectal Cancer Screening: Annual FOBT 08/03/2000 Colorectal Cancer Screening: Colonoscopy 08/03/2000 Colorectal Cancer Screening: Sigmoidoscopy 08/03/2000 Influenza Vaccine (#1) 2023 Hepatitis B Vaccine Aged Out No longe r eligible based on patient's age to complete this topic Insurance [place]ICAID [place] [facility] ([id number]) MEDICAID [place] [facility] [place] PPO ([id number]) Care Teams Supervisor Ship Maintenance Services Relationship Specialty Start Date End Date Christi Helms MD 1960 [place], [place] [phone] PCP - General 03/21/20
--- OUTSIDE RECORDS SUMMARY | 2024-04-20 14:55 | XMS_ITS | Clinical Summary ---
Author Organization [facility] Address [address] [place] [address] Care Team Providers Care Burial Vault Setter Name Role Phone Christi Helms MD Primary Care Provider [phone] Allergies Active Allergy Reactions Criticality Noted Date Comments Albuterol Other (See Comments) 08/27/2019 jitteriness Metoclopramide Unknown/Patient and Family Unable to Define Medium 08/27/2019 Medications Medication Sig Dispensed Refills Start Date End Date Status acetaminophen (TYLENOL) 500 MG tablet Take 2 tablets (1,000 mg total) by mouth 4 times daily (every 6 hours) as needed for mild pain or moderate pain (pain). 20 tablet 08/27/2019 Active Social History Tobacco Use Types Packs/Day Years Used Date Smoking Tobacco: Never Smokeless Tobacco: Never Alcohol Use Standard Drinks/Week Comments Never 0 (1 standard drink = 0.6 oz pur e alcohol) AUDIT-C Answer Date Recorded Q1: How often do you have a drink containing alc ohol? Never 08/27/2019 Average Number of Drinks Not on file 020 Frequency of Binge Drinking Not on file 08/09 Sex and Gender Information Value Date Recorded Sex Assigned at Not on file Gender Identity Not on file Sexual Orientation Not on file Last Filed Vital Signs Vital Sign Reading Time Taken Comments Blood Pressure 140/66 08/27/2019 9:12 PM EDT Pulse 68 08/27/2019 9:12 PM EDT Temperature 36.4 ??C (97.6 ??F) 08/27/2019 9:12 PM ED T Respiratory Rate 16 08/27/2019 9:12 PM EDT Oxygen Saturation 99% 08/27/2019 9:12 PM EDT Inhaled Oxygen Concentration - - Weight - - Height - - Body Mass Index - - Plan of Treatment Health Maintenance Due Date Last Done Comments Hepatitis C Virus Screening 1950 DTaP/Tdap/Td Vaccines (1 - Tdap) 08/03/1970 Mammogram 1991 Colonoscopy 08/03/1996 Pneumococcal Vaccines 50+ (1 of 1 - PCV) 08/03/2001 Zoster (Shingles) Vaccine (1 of 2) 08/03/2001 DXA Bone Density (Females,Ag es 65 and older) 08/03/2016 Influenza Vaccine 10/10/2023 COVID-19 Vaccine (1 - 2023-2 5 season) 2023 RSV Vaccine 60 years and old er and Patients (1 - 1-dose 75+ series) 08/03/2026 Hepatitis B Vaccines Aged Out No long er eligible based on patient's age to complete this topic Care Teams Burial Vault Setter Relationship Specialty Start Date End Date Christi Helms MD [address] [place] [id number] PCP - General 08/27/19
--- OUTSIDE RECORDS SUMMARY | 2024-04-20 14:55 | XMS_ITS | Patient Health Record ---
Author Organization [facility] Address [address] [place] [address] Care Team Providers Care Manager Production Name Role Phone Ulises RASMUSSEN, Diamond Primary Care Provider Jagjit Pérez Unavailable [phone] ALLERGIES Allergen (clinical drug ingredient) Drug/Non Drug [...] Esophageal reflux (K21.9) Active confirmed Esophageal reflux (657955139) Problem Encounter for screening for malignant neoplasm of colon (Z12.11) Active confirmed 398950484 Problem Weight loss (R63.4) Active confirmed 89 781979 Problem Gastric polyp (K31.7) Active confirmed Gastric polyp (16579228) Problem Gastritis (K29.70) Active confirmed Gas tritis (4757709) Problem Diarrhea, unspecified type (R19.7) Active confirmed 44059536 Problem Irritable bowel syndrome with both constipation and diarrhea (K58.2) Active confirmed 43551993 Problem Diverticulosis of colon (K57.30) Active confirmed Diverticulosi s of colon (021049383) Problem Gastric adenoma (D13.1) Active confirmed 34426204 Problem Gastroesophageal reflux disease, unspecified whether esophagitis present (K21.9) Active confirmed 054771181 Problem Nausea and vomiting, unspecified vomiting type (R11.2) Active confirmed 79493572 VITAL SIGNS Temperature 97.5 degrees Fahrenheit 12/18/2023 Blood pressure diastolic 00 mm Hg 12/18/2023 Height 66 in 12/18/2023 Blood pressure systolic 000 mm Hg 12/18/2023 Weight 124 lb 6 oz lbs 12/18/2023 BMI 20.07 kg/m2 12/18/2023 Encounters Encounter Location Date Provider Diagnosis [facility] [address] [place] [phone] 12/18/2023 Jagjit Son Irritable bowel synd damian with both constipation and diarrhea K58.2 and Gastroesophageal reflux disease, unspecified whether esophagitis present K21.9 [facility] [address] [place] [address] 08/26/2023 Jagjit Son ASSESSMENTS Encounter Date Diagnosis [...] End Date [employer] (No Referral) [address] [address] [place], [place] [address] [id number] HE CRAIG Self - patient is the insured MEDICAID OF [employer] [address] [place] [address] [id number] HE CRAIG Self - patient is the insured MEDICAL (GENERAL) HISTORY Medical History History ICD Code COPD/Asthma IBS PTSD/Depression Denies HI,DM,CVA,renal disease GERD Upper endo in 05/2011 with [...]
--- OUTSIDE RECORDS SUMMARY | 2024-04-20 14:55 | XMS_ITS ---
Author Organization [facility] Address [address] [place] [address] Care Team Providers Care Ortho/Prosthetic Aide Name Role Phone Diamond Montgomery MD Primary Care Provider Jagjit Pérez Unavailable [phone] ALLERGIES Allergen (clinical drug ingredient) Drug/Non Drug [...] 12/18/2023 Encounters Encounter Location Date Provider Diagnosis [facility] [address] [place] [address] 12/18/2023 Jagjit Son Irritable bowel synd damian [...]
--- OUTSIDE RECORDS SUMMARY | 2024-04-20 14:55 | XMS_ITS | Clinical Summary ---
Author Organization Unknown Care Team Providers Care Physical Therapy Asst Name Role Phone YAIMA RASMUSSEN, KAVITA BEST Unavailable Unav agata SPEARS RN, SNEHAL Unavailable Unavailable Payers Payer Name Policy Type Policy Number Effective Date Expira tion Date ZZZ [employer] MEDICARE ADVANTAGE FFS [id number] [place]IC[place] PDGM [id number] Problems Condition Name Condition Details Condition Category [...] on aerosol inhaler 06-25 00:00: 00 Yes [id number] 2 puff DIRECTED 2 puff DIRECTED (route: inhalation ) Med Classific ation: Respirato ry Therapy Agents bupropion HCl XL 300 mg 24 hr tablet, extended release 06-25 00:00: 00 Yes [id number] 1 tablet DAILY 1 tablet DAILY (route: oral) Med Classific ation: Central Nervous System Agents carbidopa 25 mg-levodopa 100 mg tablet 06-25 00:00: 00 Yes [id number] 1.5 tablet 4 TIMES DAILY 1.5 tablet 4 TIMES DAILY (route: oral) Med Classific ation: Central Nervous System Agents famotidine 40 mg tablet 2024-0 4-17 00:00: 00 09-01 23:59 :00 No [id number] 1 tablet DAILY 1 tablet DAILY (route: oral) Med Classific ation: Gastroint estinal Therapy Agents paroxetine 40 mg tablet 17 00:00: 00 Yes [id number] 1 tablet DAILY 1 tablet DAILY (route: oral) Med Classific ation: Central Nervous System Agents trazodone 50 mg tablet 17 00:00: 00 Yes [id number] Per instruc tions BEDTIME Per instructio ns BEDTIME (route: oral) Med Classific ation: Central Nervous System Agents gabapentin 100 mg capsule 5-24 00:00: 00 Yes [id number] pain Per instruc tions BEDTIME Per instructio ns BEDTIME (route: oral) Med Classific ation: Central Nervous System Agents omeprazole 40 mg capsule,del ayed release 24 00:00: 00 Yes [id number] 1 capsule DAILY 1 capsule DAILY (route: oral) Med Classific ation: Gastroint estinal Therapy Agents gabapentin 100 mg capsule 2023-03 0- 00:00: 00 Yes [id number] Per instruc tions 2 TIMES DAILY Per [...] AWARENESS FOR SAFETY AND WILL NOTIFY CLINICAL SQL PROGRAMMER AND PHYSICIAN/PROVIDER WITH ANY CHANGE IN CONDITION. [code = SKILLED NURSE WILL MAINTAIN SITUATIONAL AWARENESS FOR SAFETY AND WILL NOTIFY CLINICAL SQL PROGRAMMER AND PHYSICIAN/PROVIDER WITH ANY CHANGE IN CONDITION.] [...] CARE WILL BE ESTABLISHED THAT MEETS PATIENT'S SHELTER NEEDS AND INCLUDES PATIENT GOAL FOR HOME [...] WITH HER PP SCHEDULE PER HER MED PRESSER C[employer]TON GINNING.</paragraph> <paragraph>[Visit Date: 2024 by SNEHAL SPEARS RN]:</paragraph><paragraph>AO X3 AND FORGETFUL. SHE DENIES SI/HI/AVH. SHE IS HOMEBOUND AND UNABLE TO LEAVE HOME WITHOUT ASSISTANCE D/T HER TREMORS AND DECREASED ENDURANCE. SHE DENIES ANY FALLS. SHE CONTINUES WITH A HOMEMAKER ONCE PER WEEK. AM MEDICATIONS ADMINISTERED AND MEDICATIONS PP PER MAY. SHE IS COMPLIANT PER MED PRESSER COTTON GINNING. SHE PRESENTS CLEAN AND NEAT. SN EDUCATED HER ON ADEQUATE FLUID INTAKE. 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 SHE CONTINUES TO C/O LEFT HIP AND BACK PAIN 06/18. SN EDUCATED HER ON NON PHARMACOLOGICAL PAIN RELIEF MEASURES.</paragraph> Encounters Start Date/Time End Date/Time Encounter Type Admission Type Attending [facility] Care Facility Care Department Encounter ID Discharge Date Discharge Status Discharge Condition Discharge Reason Percent Goals Met 2023-09-27 00:00:00 2024-05-23 00:00:00 Outpatient RECERTIFIC ATSNEHAL VELA [facility] [id number] 83.33
--- OUTSIDE RECORDS SUMMARY | 2024-04-20 14:55 | XMS_ITS ---
Author Organization [facility] Address [address] [place] [phone] Care Team Providers Care Web Operations Specialist Name Role Phone Diamond Montgomery MD Primary Care Provider Jagjit Pérez Unavailable [phone] REASON FOR VISIT IBS MEDICATIONS Medication SIG (Take, Route, Fr equency, Duration) Notes Start Date End Date Status Omeprazole 20 MG One daily Orally Onc e every morning for 90 days Active Encounters Encounter Location Date Provider Diagnosis [facility] [address] [place] [phone] 08/26/2023 Jagjit Son PLAN OF TREATMENT Medication Medication Name Sig Start Date Stop Date Notes Omeprazole 20 MG One daily Orally Onc e every morning for 90 days
--- OUTSIDE RECORDS SUMMARY | 2024-04-20 14:56 | XMS_ITS | Continuity of Care Document ---
Author Organization [facility] Address [address] [place] [address] Insurance Providers Payer Plan Claims Address Claims Phone Policy Number Group Number Relation Employer Guarantor Name Guarantor Guarantor Address Guarantor Phone MEDIC ARE [address], [facility] [id number] Self Lien Jerry [address] [place] [id number] [facility] TPL (AUTO /LIAB ILITY ) [address], [place] [id number] Self Lien Jerry [address] [place] [address] [id number] OTHER MEDIC AID [id number], [place] [id number] Self Lien Jerry [address] [place] [id number] Problems Unknown Problems Results No Results Allergies, adverse reactions, alerts No known allergies and adverse reactions Medications Medication Instructions Route Dosage Frequency Start Date Stop Date Indications Status carbidopa 25 MG / levodopa 100 MG Oral Tablet 03/18/19 08:53 PM 2024 08:53 PM Active omeprazole 20 MG Delayed Release Oral Capsule 03/18/19 08:53 PM 2024 08:53 PM Active famotidine 40 MG Oral Tablet 03/18/19 08:53 PM 2024 08:53 PM Active cefuroxime 250 MG Oral Tablet 03/18/19 08:53 PM 2024 08:53 PM Active cefuroxime 500 MG Oral Tablet 03/18/19 08:53 PM 2024 08:53 PM Active paroxetine hydrochloride 40 MG Oral Tablet 03/18/19 08:53 PM 2024 08:53 PM Active [id number] 200 ACTUAT albuterol 0.09 MG/ACTUAT Metered Dose Inhaler 03/18/19 08:53 PM 2024 08:53 PM Active Vital Signs No vital signs reported Social History No smoking Hx information available
[2024-04-20 16:32] LABS: Anion Gap 10 (12-20); Blood Urea Nitrogen 23 mg/dL (9-16); Calcium 9.9 mg/dL (8.4-10.2); Carbon Dioxide 29 mmol/L (22-29); Chloride 108 mmol/L (96-108); Estimated Glomerular Filt Rate 38; Phosphorus 3.8 mg/dL (2.7-4.5); Potassium 4.1 mmol/L (3.3-5.1); Sodium 143 mmol/L (135-145)
[2024-04-20 16:51] LABS: Vitamin D 25-OH Total 56.5 ng/mL (>30)
[2024-04-20 17:05] LABS: Parathyroid Hormone Intact 97.3 pg/mL (8.7-77.1)
== END 2024-04-20 13:48 | disposition home or self-care (01) ==
LOC: HO.HMGCLDS 13:47
PROVIDERS: PCP Internal Medicine; Visit Provider Internal Medicine Nephrology
DX: Q61.3 Polycystic kidney, unspecified (principal); N18.31 Chronic kidney disease, stage 3a
CPT/HCPCS: 36415; 80051; 82306; 82310; 82565; 83970; 84100; 84520

== ENCOUNTER 2024-04-22 10:27 | Outpatient (AMB) | payer MEDICARE, MEDICAID, SELFPAY ==
--- NOTE | 2024-04-22 10:32 | HO.NEPHOV ---
Vital Signs 04/22/24 10:34 Height 5 ft 6 in Weight 136 lb 8 oz BMI 22.0 BP 128/60 Blood Pressure Location Rt brachial Position Sitting Pulse 69 Pulse Source Pulse Oximeter Pulse Oximetry (%) 99 Oxygen Delivery Method Room Air Intake Visit Reasons: CKD/ Conf Cylinder Sander Operator Required: No Accompanied by: Other Relationship Allergies tomato [TOMATO] Allergy (Severe, Verified 04/22/24 10:34) ANAPHYLAXIS Sulfa (Sulfonamide Antibiotics) Allergy (Intermediate, Verified 04/22/24 10:34) TRAVIS davis albuterol Allergy (Unknown, Verified 04/22/24 10:34) Unknown metoclopramide [Reglan] Allergy (Unknown, Verified 04/22/24 10:34) Unknown quetiapine [From Seroquel] Adverse Reaction (Severe, Verified 04/22/24 10:34) Hallucinations HPI Comments Details: Lien was seen in the office in follow-up of her chronic kidney disease, nephrolithiasis. She has H/O major depressive disorder and was in the hospital needing ECT. She has polycystic kidney disease. She has not had any renal functions checked for some time. She denies any flank pain, night sweats, weight loss, hematuria, pedal edema, headache, visual disturbances, chest pain, shortness of breath, nausea, vomiting or any other urinary symptoms. Her tremors are well controlled with the current dose of carbidopa/levodopa. She tries to maintain good hydration and avoids nonsteroidal anti-inflammatory medications. Her blood pressure has been at goal. [facility] Medical History (Updated 04/22/24 @ 10:37 by Dante Power MD) Low back pain Back pain Osteoporosis Restless legs syndrome (RLS) Parkinson's disease without dyskinesia or fluctuating manifestations History of uterine cancer Parkinson's disease without dyskinesia Sleep disorder Anemia CKD (chronic kidney disease), stage III PTSD (post-traumatic stress disorder) Hyperparathyroidism Family history of malignant neoplasm of endometrium Polycystic kidney disease Multinodular thyroid Back pain GERD (gastroesophageal reflux disease) Chronic fatigue IBS (irritable bowel syndrome) Fibromyalgia COPD (chronic obstructive pulmonary disease) Surgical History Hx laparoscopic cholecystectomy History of esophagogastroduodenoscopy (EGD) H/O colonoscopy History of left breast biopsy Hx of cholecystectomy History of sinus surgery History of carpal tunnel syndrome History of total abdominal hysterectomy Family History Father COPD (chronic obstructive pulmonary disease) Mother Arteriosclerosis Breast cancer, Onset Age: 80 Sister Diabetes mellitus Breast cancer, Onset Age: 70 Brother Bone cancer History of pituitary cancer Social History Household Members: None Housing: House Do you presently have visiting nurse or other home services: No Unable to assess alcohol history related to: Refusing to respond Alcohol intake: never Patient Tobacco Use Status: Never used Tobacco e-Cigarette/Vaping Use: Never Used service: No Current occupational status: unemployed Sexual orientation: Straight/Heterosexual Cognitive needs: No Hearing needs: No Vision needs: Yes Review of Systems Const All systems reviewed & are unremarkable except as noted in HPI and below Physical Exam Const General: comfortable and no acute distress Orientation/consciousness: patient oriented x3 HEENT Head: Yes normocephalic Mouth: Normal oral and palatal mucosa present Eyes EOM: EOMs intact bilaterally Neck Neck: Yes supple Resp Auscultation: clear to auscultation bilaterally Cardio Jugular venous distension: no JVD Rate: regular rate GI Palpation (GI): Soft to palpation Auscultation: normal bowel sounds General: Yes no CVA tenderness Back/Spine/Pelvis Back: no CVA tenderness Skin General skin exam: no rashes or lesions noted Neuro General: patient oriented x3 and moves all extremities Extrem General: Yes no pedal edema Results Reviewed Nephrology Results: Sodium 143 mmol/L (135-145) 04/20/24 Potassium 4.1 mmol/L (3.3-5.1) 04/20/24 Chloride 108 mmol/L (96-108) 04/20/24 Carbon Dioxide 29 mmol/L (22-29) 04/20/24 BUN 23 mg/dL (9-16) H 04/20/24 Creatinine 1.38 mg/dL (0.5-1.4) 04/20/24 Calcium 9.9 mg/dL (8.4-10.2) 04/20/24 Phosphorus 3.8 mg/dL (2.7-4.5) 04/20/24 PTH Intact 97.3 pg/mL (8.7-77.1) H 04/20/24 Urine Protein Negative mg/dL (Neg-Trace) 01/29/24 Assessment & Plan Assessment & Plan (1) Polycystic kidney disease: Code(s): Q61.3 - Polycystic kidney, unspecified Category: Medical (2) CKD (chronic kidney disease), stage III: Code(s): N18.30 - Chronic kidney disease, stage 3 unspecified Category: Medical Qualifiers: Chronic kidney disease stage 3 subtype: stage 3a (GFR 45-59) Qualified Code(s): N18.31 - Chronic kidney disease, stage 3a (3) Secondary hyperparathyroidism (of renal origin): Code(s): N25.81 - Secondary hyperparathyroidism of renal origin Category: Medical Plan Lien has CKD from polycystic kidney disease. She has history of microscopic hematuria and nephrolithiasis. She has no history of proteinuria. Blood pressure has been at goal. She has no flank pain, pedal edema. She does not take any nonsteroidal anti-inflammatory medications. She may need MRI to assess the status of renal cyst. She has no history of any CVA in the family. She should maintain good hydration. I did not make any medication changes today. All questions answered. Follow-up given. Orders: Orders Creatinine 6 Months N18.31 - Chronic kidney disease, stage 3a, N25.81 - Secondary hyperparathyroidism of renal origin, Q61.3 - Polycystic kidney, unspecified Electrolytes 6 Months N18.31 - Chronic kidney disease, stage 3a, N25.81 - Secondary hyperparathyroidism of renal origin, Q61.3 - Polycystic kidney, unspecified MR huseyin abarca wo con Today Q61.3 - Polycystic kidney, unspecified Blood Urea Nitrogen 6 Months N18.31 - Chronic kidney disease, stage 3a, N25.81 - Secondary hyperparathyroidism of renal origin, Q61.3 - Polycystic kidney, unspecified Coding Level of Care Code Est Pt Level 4 (31790) Diagnoses Polycystic kidney disease Q61.3 Stage 3a chronic kidney disease N18.31 Chronic kidney disease stage 3 subtype: stage 3a (GFR 45-59) Secondary hyperparathyroidism (of renal origin) N25.81
[2024-04-22 10:34] VITALS: BP 128/60; PULSE 69; O2SAT 99; BMI 22.0
--- OUTSIDE RECORDS SUMMARY | 2024-04-22 12:11 | XMS_ITS | Clinical Summary ---
Author Organization [facility] Address [address] [place] [address] Phone Care Team Providers Care Aerophysicist Name Role Phone Christi Helms MD Primary Care Provider [phone] Allergies Active Allergy Reactions Criticality Noted Date Comments Albuterol Other (see comments) 02/23/2016 Caused mouth sores. jitteriness [place] Other (see comments) 02/23/2016 Mouth breaks out. [...] to complete this topic Insurance MEDICAID [place] [facility] [place] PPO ([id number]) MEDICAID [place] [facility] [place] PPO ([id number]) Care Teams Aerophysicist Relationship Specialty Start Date End Date Christi Helms MD [address] [place], [place] [id number] PCP - General 03/21/20
--- OUTSIDE RECORDS SUMMARY | 2024-04-22 12:11 | XMS_ITS | Clinical Summary ---
Author Organization Unknown Care Team Providers Care Financial Data Analyst Name Role Phone YAIMA RASMUSSEN, KAVITA BEST Unavailable Unav agata SPEARS RN, SNEHAL Unavailable Unavailable Payers Payer Name Policy Type Policy Number Effective Date Expira tion Date ZZZ [employer] MEDICARE ADVANTAGE FFS [id number] [place] [id number] Problems Condition Name Condition Details Condition Category [...] on aerosol inhaler 06-25 00:00: 00 Yes [id number] 2 puff DIRECTED 2 puff DIRECTED (route: inhalation ) Med Classific ation: Respirato ry Therapy Agents bupropion HCl XL 300 mg 24 hr tablet, extended release 06-25 00:00: 00 Yes [id number] 1 tablet DAILY 1 tablet DAILY (route: oral) Med Classific ation: Central Nervous System Agents carbidopa 25 mg-levodopa 100 mg tablet 06-25 00:00: 00 Yes [id number] 1.5 tablet 4 TIMES DAILY 1.5 tablet 4 TIMES DAILY (route: oral) Med Classific ation: Central Nervous System Agents famotidine 40 mg tablet 2024-0 4-17 00:00: 00 09-01 23:59 :00 No [id number] 1 tablet DAILY 1 tablet DAILY (route: oral) Med Classific ation: Gastroint estinal Therapy Agents paroxetine 40 mg tablet 17 00:00: 00 Yes [id number] 1 tablet DAILY 1 tablet DAILY (route: oral) Med Classific ation: Central Nervous System Agents trazodone 50 mg tablet 17 00:00: 00 Yes [id number] Per instruc tions BEDTIME Per instructio ns BEDTIME (route: oral) Med Classific ation: Central Nervous System Agents gabapentin 100 mg capsule -24 00:00: 00 Yes [id number] pain Per instruc tions BEDTIME Per instructio ns BEDTIME (route: oral) Med Classific ation: Central Nervous System Agents omeprazole 40 mg capsule,del ayed release 24 00:00: 00 Yes [id number] 1 capsule DAILY 1 capsule DAILY (route: oral) Med Classific ation: Gastroint estinal Therapy Agents gabapentin 100 mg capsule 2023-03 0- 00:00: 00 Yes [id number] Per instruc tions 2 TIMES DAILY Per instructio ns 2 TIMES DAILY (route: oral) Med Classific ation: Central Nervous System Agents Vital Signs Vital Name Observation Time Observation Value Commen ts Pulse 2024-04-20 11:46:00.000 82 /min Pulse 2024-04-15 11:49:00.000 76 /min Pulse 2024-04-13 11:10:00.000 71 /min Pulse 2024-04-10 10:46:00.000 78 /min Pulse 2024-04-06 09:55:00.000 70 /min Pulse 2024-04-01 09:59:00.000 74 /min Pulse 2024-03-30 09:53:00.000 68 /min Pulse 2024-03-27 10:29:00.000 67 /min O2 Saturation (%) 2024-04-20 11:46:00.000 99 % O2 Saturation (%) 2024-04-15 11:50:00.000 96 % O2 Saturation (%) 2024-04-13 11:11:00.000 97 % O2 Saturation (%) 2024-04-10 10:52:00.000 97 % O2 Saturation (%) 2024-04-06 09:56:00.000 96 % O2 Saturation (%) 2024-04-01 09:59:00.000 96 % O2 Saturation (%) 2024-03-30 09:54:00.000 97 % O2 Saturation (%) 2024-03-27 10:29:00.000 97 % Respirations 2024-04-20 11:46:00.000 20 /min Respirations 2024-04-15 11:49:00.000 20 /min Respirations 2024-04-13 11:10:00.000 20 /min Respirations 2024-04-10 10:46:00.000 20 /min Respirations 2024-04-06 09:55:00.000 20 /min Respirations 2024-04-01 09:59:00.000 20 /min Respirations 2024-03-30 09:53:00.000 20 /min Respirations 2024-03-27 10:29:00.000 20 /min Respirations 2024-03-25 10:06:00.000 20 /min Systolic Blood Pressure 2024-04-20 11:46:00.000 126 mm [Hg] Systolic Blood Pressure 2024-04-17 15:23:00.000 120 mm [...] 10:06:00.000 120 mm [Hg] Diastolic Blood Pressure 2024-04-20 11:46:00.000 70 mm [Hg] Diastolic Blood Pressure 2024-04-17 15:23:00.000 [...] AWARENESS FOR SAFETY AND WILL NOTIFY CLINICAL OFFLINE EDITOR AND PHYSICIAN/PROVIDER WITH ANY CHANGE IN CONDITION. [code = SKILLED NURSE WILL MAINTAIN SITUATIONAL AWARENESS FOR SAFETY AND WILL NOTIFY CLINICAL OFFLINE EDITOR AND PHYSICIAN/PROVIDER WITH ANY CHANGE IN CONDITION.] [...] CARE WILL BE ESTABLISHED THAT MEETS PATIENT'S RETIREMENT NEEDS AND INCLUDES PATIENT GOAL FOR HOME [...] Notes <paragraph>[Visit Date: 2024 by SNEHAL SPEARS RN]:</paragraph><paragraph>LABS TODAY FOR NEPHRO APPT ON SAT AT 10:30. NEXT NEURO APPT IN AUGUST. C/O INTERMITTENT NUMBNESS BLE, HIP PAIN 09/17. MEDS PP X 1WK</paragraph> <paragraph>[Visit Date: 2024 by SNEHAL SPEARS RN]:</paragraph><paragraph>AO [...] WITH HER PP SCHEDULE PER HER MED LOAN TELLER.</paragraph> Encounters Start Date/Time End Date/Time Encounter Type Admission Type Attending [facility] Care Department Encounter ID Discharge Date Discharge Status Discharge Condition Discharge Reason Percent Goals Met 2023-09-27 00:00:00 2024-05-23 00:00:00 Outpatient RECERTIFIC SNEHAL JACQUES [facility] [id number] 91.67
--- OUTSIDE RECORDS SUMMARY | 2024-04-22 12:11 | XMS_ITS ---
Author Organization [facility] Address [address] [place] [address] Care Team Providers Care Chair Car Attendant Name Role Phone Diamond Montgomery MD Primary Care Provider Jagjit Pérez Unavailable [phone] REASON FOR VISIT IBS MEDICATIONS Medication SIG (Take, Route, Fr equency, Duration) Notes Start Date End Date Status Omeprazole 20 MG One daily Orally Onc e every morning for 90 days Active Encounters Encounter Location Date Provider Diagnosis [facility] [address] [place] [address] 08/26/2023 Jagjit Son PLAN OF TREATMENT Medication Medication Name Sig Start Date Stop Date Notes Omeprazole 20 MG One daily Orally Onc e every morning for 90 days
--- OUTSIDE RECORDS SUMMARY | 2024-04-22 12:11 | XMS_ITS ---
Author Organization [facility] Address [address] [place] [address] Care Team Providers Care Septic Tank Setter Name Role Phone Diamond Montgomery MD Primary Care Provider Jagjit Pérez Unavailable [phone] ALLERGIES Allergen (clinical drug ingredient) Drug/Non Drug [...] 12/18/2023 Encounters Encounter Location Date Provider Diagnosis [facility] [address] [place] [address] 12/18/2023 Jagjit Son Irritable bowel synd damian [...]
--- OUTSIDE RECORDS SUMMARY | 2024-04-22 12:12 | XMS_ITS | Clinical Summary ---
Author Organization Unknown Care Team Providers Care Chemistry Professor Name Role Phone YAIMA RASMUSSEN, KAVITA BEST Unavailable Unav agata SPEARS RN, SNEHAL Unavailable Unavailable Payers Payer Name Policy Type Policy Number Effective Date Expira tion Date ZZZ [employer] MEDICARE ADVANTAGE FFS [id number] [place] [id number] Problems Condition Name Condition Details Condition Category [...] on aerosol inhaler 06-25 00:00: 00 Yes [id number] 2 puff DIRECTED 2 puff DIRECTED (route: inhalation ) Med Classific ation: Respirato ry Therapy Agents bupropion HCl XL 300 mg 24 hr tablet, extended release 06-25 00:00: 00 Yes [id number] 1 tablet DAILY 1 tablet DAILY (route: oral) Med Classific ation: Central Nervous System Agents carbidopa 25 mg-levodopa 100 mg tablet 06-25 00:00: 00 Yes [id number] 1.5 tablet 4 TIMES DAILY 1.5 tablet 4 TIMES DAILY (route: oral) Med Classific ation: Central Nervous System Agents famotidine 40 mg tablet 2024-0 4-17 00:00: 00 09-01 23:59 :00 No [id number] 1 tablet DAILY 1 tablet DAILY (route: oral) Med Classific ation: Gastroint estinal Therapy Agents paroxetine 40 mg tablet 17 00:00: 00 Yes [id number] 1 tablet DAILY 1 tablet DAILY (route: oral) Med Classific ation: Central Nervous System Agents trazodone 50 mg tablet 17 00:00: 00 Yes [id number] Per instruc tions BEDTIME Per instructio ns BEDTIME (route: oral) Med Classific ation: Central Nervous System Agents gabapentin 100 mg capsule -24 00:00: 00 Yes [id number] pain Per instruc tions BEDTIME Per instructio ns BEDTIME (route: oral) Med Classific ation: Central Nervous System Agents omeprazole 40 mg capsule,del ayed release 24 00:00: 00 Yes [id number] 1 capsule DAILY 1 capsule DAILY (route: oral) Med Classific ation: Gastroint estinal Therapy Agents gabapentin 100 mg capsule 2023-03 0- 00:00: 00 Yes [id number] Per instruc tions 2 TIMES DAILY Per [...] AWARENESS FOR SAFETY AND WILL NOTIFY CLINICAL PATENT EXAMINER AND PHYSICIAN/PROVIDER WITH ANY CHANGE IN CONDITION. [code = SKILLED NURSE WILL MAINTAIN SITUATIONAL AWARENESS FOR SAFETY AND WILL NOTIFY CLINICAL PATENT EXAMINER AND PHYSICIAN/PROVIDER WITH ANY CHANGE IN CONDITION.] [...] CARE WILL BE ESTABLISHED THAT MEETS PATIENT'S DETENTION NEEDS AND INCLUDES PATIENT GOAL FOR HOME [...] WITH HER PP SCHEDULE PER HER MED CELLO TEACHER.</paragraph> Encounters Start Date/Time End Date/Time Encounter Type Admission Type Attending [facility] Facility Care Department Encounter ID Discharge Date Discharge Status Discharge Condition Discharge Reason Percent Goals Met 2023-09-27 00:00:00 2024-05-23 00:00:00 Outpatient RECERTIFIC SNEHAL JACQUES [facility] [id number] 91.67
--- OUTSIDE RECORDS SUMMARY | 2024-04-22 12:12 | XMS_ITS | Patient Health Record ---
Author Organization [facility] Address [address] [place] [address] Care Team Providers Care Voice Instructor Name Role Phone Ulises RASMUSSEN, Diamond Primary Care Provider Jagjit Pérez Unavailable [phone] ALLERGIES Allergen (clinical drug ingredient) Drug/Non Drug [...] Esophageal reflux (K21.9) Active confirmed Esophageal reflux (051160575) Problem Encounter for screening for malignant neoplasm of colon (Z12.11) Active confirmed 439787203 Problem Weight loss (R63.4) Active confirmed 89 252156 Problem Gastric polyp (K31.7) Active confirmed Gastric polyp (12068442) Problem Gastritis (K29.70) Active confirmed Gas tritis (2160451) Problem Diarrhea, unspecified type (R19.7) Active confirmed 10061231 Problem Irritable bowel syndrome with both constipation and diarrhea (K58.2) Active confirmed 87891195 Problem Diverticulosis of colon (K57.30) Active confirmed Diverticulosi s of colon (985821608) Problem Gastric adenoma (D13.1) Active confirmed 95510275 Problem Gastroesophageal reflux disease, unspecified whether esophagitis present (K21.9) Active confirmed 728555753 Problem Nausea and vomiting, unspecified vomiting type (R11.2) Active confirmed 45020180 VITAL SIGNS Temperature 97.5 degrees Fahrenheit 12/18/2023 Blood pressure diastolic 00 mm Hg 12/18/2023 Height 66 in 12/18/2023 Blood pressure systolic 000 mm Hg 12/18/2023 Weight 124 lb 6 oz lbs 12/18/2023 BMI 20.07 kg/m2 12/18/2023 Encounters Encounter Location Date Provider Diagnosis [facility] [address] [place] [phone] 12/18/2023 Jagjit Son Irritable bowel synd damian with both constipation and diarrhea K58.2 and Gastroesophageal reflux disease, unspecified whether esophagitis present K21.9 [facility] [address] [place] [address] 08/26/2023 Jagjit Son ASSESSMENTS Encounter Date Diagnosis [...] End Date [employer] (No Referral) [address] [address] [place], [place] [address] [id number] HE CRAIG Self - patient is the insured MEDICAID OF [employer] [address] [place] [address] [id number] HE CRAIG Self - patient is the insured MEDICAL (GENERAL) HISTORY Medical History History ICD Code COPD/Asthma IBS PTSD/Depression Denies DC,DM,CVA,renal disease GERD Upper endo in 05/2011 with [...]
--- OUTSIDE RECORDS SUMMARY | 2024-04-22 12:12 | XMS_ITS | Clinical Summary ---
Author Organization [facility] Address [address] [place] [address] Care Team Providers Care Medical Dosimetrist Name Role Phone Christi Helms MD Primary Care Provider [phone] Allergies Active Allergy Reactions Criticality Noted Date [...] age to complete this topic Care Teams Medical Dosimetrist Relationship Specialty Start Date End Date Christi Helms MD [address] [place] [address] PCP - General 08/27/19
== END 2024-04-22 10:52 | disposition home or self-care (01) ==
PROVIDERS: PCP Internal Medicine; Visit Provider Internal Medicine Nephrology
DX: Q61.3 Polycystic kidney, unspecified (principal); N18.31 Chronic kidney disease, stage 3a; N25.81 Secondary hyperparathyroidism of renal origin
CPT/HCPCS: 99214

== ENCOUNTER → 2024-04-22 10:27 | Outpatient (BNVA) | payer MEDICARE, MEDICAID, SELFPAY | PROVIDERS: PCP Internal Medicine; Visit Provider Internal Medicine Nephrology | DX: N18.31 Chronic kidney disease, stage 3a (principal); N25.81 Secondary hyperparathyroidism of renal origin; Q61.3 Polycystic kidney, unspecified | CPT/HCPCS: 99212 ==

== ENCOUNTER → 2024-05-03 09:44 | Outpatient (BNV) | payer MEDICARE, MEDICAID, SELFPAY | PROVIDERS: PCP Internal Medicine; Visit Provider Radiology Diagnostic Radiology | DX: Q61.3 Polycystic kidney, unspecified (principal); K76.89 Other specified diseases of liver | CPT/HCPCS: 74181 ==

== ENCOUNTER 2024-05-03 09:45 | Outpatient (REF) | payer MEDICARE, MEDICAID, SELFPAY ==
--- NOTE | ~2024-05-03 | MR_ITS ---
EXAMINATION: MR ABDOMEN WITHOUT IV CONTRAST HISTORY: Q61.3 - Polycystic kidney, unspecified. TECHNIQUE: Sagittal, axial, and coronal T2, axial in and out of phase T1-weighted gradient echo, and axial fat suppressed T1 and T2 weighted MR images of the abdomen were obtained. COMPARISON: Correlation is made with a renal ultrasound dated 02/26/2023. FINDINGS: There is no significant signal loss within the liver on opposed phase imaging to suggest steatosis. There are numerous tiny subcentimeter hyperintense foci within the liver which likely represent cysts. These cannot be completely characterized without intravenous contrast material. There is no intra or extrahepatic biliary ductal dilatation. The gallbladder is surgically absent. The pancreas, spleen, and adrenal glands are unremarkable. Innumerable cysts are seen in both kidneys measuring up to 2.1 cm on the right and 2.2 cm on the left. Several of these demonstrate layering or internal T1 hyperintensity, consistent with blood products or proteinaceous content. Complete characterization is not possible due to lack of intravenous contrast administration. No retroperitoneal lymphadenopathy or ascites is identified. The visualized bones demonstrate normal signal intensity. MR/MR abd polycystic kid wo con IMPRESSION: 1. Polycystic kidney disease. Several of the cysts demonstrate internal hemorrhage or proteinaceous content. Complete evaluation is not possible due to lack of intravenous contrast material. Follow-up is recommended. 2. Probable numerous tiny hepatic cysts. Electronically signed by: Jagjit Warren MD 05/04/2024 09:56 AM EST
--- OUTSIDE RECORDS SUMMARY | 2024-05-03 09:52 | XMS_ITS ---
Author Organization [facility] Address [address] [place] [address] Care Team Providers Care Professor Of Archaeology Name Role Phone Diamond Montgomery MD Primary Care Provider Jagjit Pérez Unavailable [phone] ALLERGIES Allergen (clinical drug ingredient) Drug/Non Drug [...] 12/18/2023 Encounters Encounter Location Date Provider Diagnosis [facility] [address] [place] [address] 12/18/2023 Jagjit Son Irritable bowel synd damian [...]
--- OUTSIDE RECORDS SUMMARY | 2024-05-03 09:52 | XMS_ITS ---
Author Organization [facility] Address [address] [place] [address] Care Team Providers Care Tempering Oven Operator Name Role Phone Diamond Montgomery MD Primary Care Provider Jagjit Pérez Unavailable [phone] REASON FOR VISIT IBS MEDICATIONS Medication SIG (Take, Route, Fr equency, Duration) Notes Start Date End Date Status Omeprazole 20 MG One daily Orally Onc e every morning for 90 days Active Encounters Encounter Location Date Provider Diagnosis [facility] [address] [place] [phone] 08/26/2023 Jagjit Son PLAN OF TREATMENT Medication Medication Name Sig Start Date Stop Date Notes Omeprazole 20 MG One daily Orally Onc e every morning for 90 days
--- OUTSIDE RECORDS SUMMARY | 2024-05-03 09:52 | XMS_ITS | Clinical Summary ---
Author Organization [facility] Address [address] [place] [address] Phone Care Team Providers Care Sock Turner Name Role Phone Christi Helms MD Primary Care Provider [phone] Allergies Active Allergy Reactions Criticality Noted Date Comments Albuterol Other (see comments) 02/23/2016 Caused mouth sores. jitteriness [place] Other (see comments) 02/23/2016 Mouth breaks out. [...] to complete this topic Insurance [place] [id number] [place] [facility] [place] PPO ([id number]) Care Teams Sock Turner Relationship Specialty Start Date End Date Christi Helms MD [address] [place], [place] [id number] PCP - General 03/21/20
--- OUTSIDE RECORDS SUMMARY | 2024-05-03 09:53 | XMS_ITS | Patient Health Record ---
Author Organization [facility] Address [address] [place] [address] Care Team Providers Care Acting Section Chief Name Role Phone Ulises RASMUSSEN, Diamond Primary Care Provider Jagjit Pérez Unavailable [phone] ALLERGIES Allergen (clinical drug ingredient) Drug/Non Drug [...] Esophageal reflux (K21.9) Active confirmed Esophageal reflux (522727329) Problem Encounter for screening for malignant neoplasm of colon (Z12.11) Active confirmed 060214608 Problem Weight loss (R63.4) Active confirmed 89 811895 Problem Gastric polyp (K31.7) Active confirmed Gastric polyp (63262625) Problem Gastritis (K29.70) Active confirmed Gas tritis (5386413) Problem Diarrhea, unspecified type (R19.7) Active confirmed 36561611 Problem Irritable bowel syndrome with both constipation and diarrhea (K58.2) Active confirmed 73319052 Problem Diverticulosis of colon (K57.30) Active confirmed Diverticulosi s of colon (705262119) Problem Gastric adenoma (D13.1) Active confirmed 68103076 Problem Gastroesophageal reflux disease, unspecified whether esophagitis present (K21.9) Active confirmed 554391494 Problem Nausea and vomiting, unspecified vomiting type (R11.2) Active confirmed 75737002 VITAL SIGNS Temperature 97.5 degrees Fahrenheit 12/18/2023 Blood pressure diastolic 00 mm Hg 12/18/2023 Height 66 in 12/18/2023 Blood pressure systolic 000 mm Hg 12/18/2023 Weight 124 lb 6 oz lbs 12/18/2023 BMI 20.07 kg/m2 12/18/2023 Encounters Encounter Location Date Provider Diagnosis [facility] [address] [place] [phone] 12/18/2023 Jagjit Son Irritable bowel synd damian with both constipation and diarrhea K58.2 and Gastroesophageal reflux disease, unspecified whether esophagitis present K21.9 [facility] [address] [place] [phone] 08/26/2023 Jagjit Son ASSESSMENTS Encounter Date Diagnosis [...] End Date [employer] (No Referral) [address] [address] [place], [place] [id number] HE CRAIG Self - patient is the insured MEDICAID OF [employer] [address] [place] [address] [id number] HE CRAIG Self - patient is the insured MEDICAL (GENERAL) HISTORY Medical History History ICD Code COPD/Asthma IBS PTSD/Depression Denies [place],DM,CVA,renal disease GERD Upper endo in 05/2011 with [...]
--- OUTSIDE RECORDS SUMMARY | 2024-05-03 09:53 | XMS_ITS | Clinical Summary ---
Author Organization [facility] Address [address] [place] [address] Care Team Providers Care Supervisor Elementary Education Name Role Phone Christi Helms MD Primary Care Provider [phone] Allergies Active Allergy Reactions Criticality Noted Date [...] age to complete this topic Care Teams Supervisor Elementary Education Relationship Specialty Start Date End Date Christi Helms MD [address] [place] [address] PCP - General 08/27/19
--- OUTSIDE RECORDS SUMMARY | 2024-05-03 09:53 | XMS_ITS | Clinical Summary ---
Author Organization Unknown Care Team Providers Care Comedian Name Role Phone YAIMA RASMUSSEN, KAVITA BEST Unavailable Unav agata SPEARS RN, SNEHAL Unavailable Unavailable Payers Payer Name Policy Type Policy Number Effective Date Expira tion Date ZZZ [employer] MEDICARE ADVANTAGE FFS [id number] [place] [id number] Problems Condition Name Condition Details Condition Category [...] on aerosol inhaler 06-25 00:00: 00 Yes [id number] 2 puff DIRECTED 2 puff DIRECTED (route: inhalation ) Med Classific ation: Respirato ry Therapy Agents bupropion HCl XL 300 mg 24 hr tablet, extended release 06-25 00:00: 00 Yes [id number] 1 tablet DAILY 1 tablet DAILY (route: oral) Med Classific ation: Central Nervous System Agents carbidopa 25 mg-levodopa 100 mg tablet 06-25 00:00: 00 Yes [id number] 1.5 tablet 4 TIMES DAILY 1.5 tablet 4 TIMES DAILY (route: oral) Med Classific ation: Central Nervous System Agents famotidine 40 mg tablet 2024-0 4-17 00:00: 00 09-01 23:59 :00 No [id number] 1 tablet DAILY 1 tablet DAILY (route: oral) Med Classific ation: Gastroint estinal Therapy Agents paroxetine 40 mg tablet 17 00:00: 00 Yes [id number] 1 tablet DAILY 1 tablet DAILY (route: oral) Med Classific ation: Central Nervous System Agents trazodone 50 mg tablet 17 00:00: 00 Yes [id number] Per instruc tions BEDTIME Per instructio ns BEDTIME (route: oral) Med Classific ation: Central Nervous System Agents gabapentin 100 mg capsule 5-24 00:00: 00 Yes [id number] pain Per instruc tions BEDTIME Per instructio ns BEDTIME (route: oral) Med Classific ation: Central Nervous System Agents omeprazole 40 mg capsule,del ayed release 24 00:00: 00 Yes [id number] 1 capsule DAILY 1 capsule DAILY (route: oral) Med Classific ation: Gastroint estinal Therapy Agents gabapentin 100 mg capsule 2023-03 0- 00:00: 00 Yes [id number] Per instruc tions 2 TIMES DAILY Per instructio ns 2 TIMES DAILY (route: oral) Med Classific ation: Central Nervous System Agents Vital Signs Vital Name Observation Time Observation Value Commen ts Pulse 2024-04-22 09:22:00.000 65 /min Pulse 2024-04-20 11:46:00.000 82 /min Pulse 2024-04-15 11:49:00.000 76 /min Pulse 2024-04-13 11:10:00.000 71 /min Pulse 2024-04-10 10:46:00.000 78 /min Pulse 2024-04-06 09:55:00.000 70 /min Pulse 2024-04-01 09:59:00.000 74 /min Pulse 2024-03-30 09:53:00.000 68 /min Pulse 2024-03-27 10:29:00.000 67 /min O2 Saturation (%) 2024-04-22 09:24:00.000 99 % O2 Saturation (%) 2024-04-20 11:46:00.000 99 % O2 Saturation (%) 2024-04-15 11:50:00.000 96 % O2 Saturation (%) 2024-04-13 11:11:00.000 97 % O2 Saturation (%) 2024-04-10 10:52:00.000 97 % O2 Saturation (%) 2024-04-06 09:56:00.000 96 % O2 Saturation (%) 2024-04-01 09:59:00.000 96 % O2 Saturation (%) 2024-03-30 09:54:00.000 97 % O2 Saturation (%) 2024-03-27 10:29:00.000 97 % Respirations 2024-04-22 09:22:00.000 20 /min Respirations 2024-04-20 11:46:00.000 20 /min Respirations 2024-04-15 11:49:00.000 20 /min Respirations 2024-04-13 11:10:00.000 20 /min Respirations 2024-04-10 10:46:00.000 20 /min Respirations 2024-04-06 09:55:00.000 20 /min Respirations 2024-04-01 09:59:00.000 20 /min Respirations 2024-03-30 09:53:00.000 20 /min Respirations 2024-03-27 10:29:00.000 20 /min Respirations 2024-03-25 10:06:00.000 20 /min Systolic Blood Pressure 2024-04-22 09:22:00.000 110 mm [Hg] Systolic Blood Pressure 2024-04-20 11:46:00.000 126 mm [...] 10:06:00.000 120 mm [Hg] Diastolic Blood Pressure 2024-04-22 09:22:00.000 66 mm [Hg] Diastolic Blood Pressure 2024-04-20 11:46:00.000 [...] AWARENESS FOR SAFETY AND WILL NOTIFY CLINICAL DIABETES TERRITORY MANAGER AND PHYSICIAN/PROVIDER WITH ANY CHANGE IN CONDITION. [code = SKILLED NURSE WILL MAINTAIN SITUATIONAL AWARENESS FOR SAFETY AND WILL NOTIFY CLINICAL DIABETES TERRITORY MANAGER AND PHYSICIAN/PROVIDER WITH ANY CHANGE IN CONDITION.] [...] CARE WILL BE ESTABLISHED THAT MEETS PATIENT'S [facility] NEEDS AND INCLUDES PATIENT GOAL FOR HOME [...] Notes Progress Notes <paragraph>[Visit Date: 2024 by BRISSA MARTINEZ RN, CLINICAL NAVIGATOR]:</paragraph><paragraph>HE PRESENTS BRIGHT WITH BROAD AFFECT. HER BP IS WNL 114/62. HRR. HAD TRIED TO PREPOUR THE MEDICATION HERSELF PRIOR TO NURSE ARRIVAL. MEDIPLANNER REVIEWED. THERE WERE SEVERAL ERRORS. PLEASE CONTINUE TO PREFILL MEDIPLANNER FOR THE PATIENT. MEDICATION FILLED THROUGH TO Saturday05.04.24</paragraph> Encounters Start Date/Time End Date/Time Encounter Type Admission Type Attending [facility] Care Department Encounter ID Discharge Date Discharge Status Discharge Condition Discharge Reason Percent Goals Met 2023-09-27 00:00:00 2024-05-23 00:00:00 [facility] [id number] 91.67
== END 2024-05-03 09:46 | disposition home or self-care (01) ==
LOC: HO.MRI 09:45
PROVIDERS: PCP Internal Medicine; Visit Provider Internal Medicine Nephrology
DX: Q61.3 Polycystic kidney, unspecified (principal)
CPT/HCPCS: 74181

== ENCOUNTER 2024-05-20 13:27 | Outpatient (AMB) | payer MEDICARE, MEDICAID, SELFPAY ==
--- NOTE | 2024-05-20 13:57 | AM.OFFWIN_ITS ---
Intake Vital Signs 05/20/24 13:59 Height 5 ft 6 in Weight 124 lb BMI 20.0 BP 124/70 Blood Pressure Location Rt brachial Position Sitting Pulse 70 Pulse Source Pulse Oximeter Pulse Oximetry (%) 99 Oxygen Delivery Method Room Air Intake Visit Reasons: EP pain in back and hip, lt leg numb Intake Note: Patient here for back and hip pain that has been present for a couple of weeks now but has worsened over the past couple of days. Patient Tobacco Use Status: Never used Tobacco Allergies tomato [TOMATO] Allergy (Severe, Verified 05/20/24 14:01) ANAPHYLAXIS Sulfa (Sulfonamide Antibiotics) Allergy (Intermediate, Verified 05/20/24 14:01) susan, ROBLES albuterol Allergy (Unknown, Verified 05/20/24 14:01) Unknown metoclopramide [Reglan] Allergy (Unknown, Verified 05/20/24 14:01) Unknown quetiapine [From Seroquel] Adverse Reaction (Severe, Verified 05/20/24 14:01) Hallucinations Do you need a note to return to daycare/school/sports/work: No HPI HPI Comments History of Present Illness Details She presents to office with back and R hip pain States years of back pain and pain worsening in L hip Has been using ECT therapy for depression x 1 month which has been heping a lot States last session was the last week of February and she had a bad response Since then L hip pain She saw neurologist for it and they said try to relax Patient has not tried anything for it and doesnt take NSAIDs She has not seen her PCP for this Patient has used cane since Parkinsons diagnosis Denies new falls or trauma Pain intermittent L leg radiation L hip/back pain is 7/10 No urine or bowel complaints aside from chronic IBS Denies urinary or stool incontinence No abdominal pain new onset; intermittent cramps with IBS Denies leg edema PFSH Medical History (Updated 05/20/24 @ 14:20 by April Tao PA-C) Back pain Low back pain Osteoporosis Restless legs syndrome (RLS) Parkinson's disease without dyskinesia or fluctuating manifestations History of uterine cancer Parkinson's disease without dyskinesia Sleep disorder Anemia CKD (chronic kidney disease), stage III PTSD (post-traumatic stress disorder) Hyperparathyroidism Family history of malignant neoplasm of endometrium Polycystic kidney disease Multinodular thyroid Back pain GERD (gastroesophageal reflux disease) Chronic fatigue IBS (irritable bowel syndrome) Fibromyalgia COPD (chronic obstructive pulmonary disease) Surgical History Hx laparoscopic cholecystectomy History of esophagogastroduodenoscopy (EGD) H/O colonoscopy History of left breast biopsy Hx of cholecystectomy History of sinus surgery History of carpal tunnel syndrome History of total abdominal hysterectomy Family History Father COPD (chronic obstructive pulmonary disease) Mother Arteriosclerosis Breast cancer, Onset Age: 80 Sister Diabetes mellitus Breast cancer, Onset Age: 70 Brother Bone cancer History of pituitary cancer Social History Household Members: None Housing: House Do you presently have visiting nurse or other home services: No Unable to assess alcohol history related to: Refusing to respond Alcohol intake: never Patient Tobacco Use Status: Never used Tobacco e-Cigarette/Vaping Use: Never Used service: No Current occupational status: unemployed Sexual orientation: Straight/Heterosexual Cognitive needs: No Hearing needs: No Vision needs: Yes Review of Systems Const Denies chills, Denies fever(s) and Denies weakness ENT Denies dizziness, Denies otalgia, Denies nasal congestion and Denies sore throat Card Denies chest pain and Denies syncope Resp Denies cough GI Denies abdominal pain, Reports GI cramping (with IBS), Reports loose stools and Denies vomiting Denies hematuria, Denies dysuria, Denies urinary incontinence and Denies urinary urgency Musc Reports arthralgias (L hip) and Denies tingling Skin/Breast Denies erythema Neuro Denies dizziness, Denies syncope, Denies tingling and Denies weakness Physical Exam Vital Signs: Last Vital Signs Pulse 70 05/20/24 13:59 BP 124/70 05/20/24 13:59 Pulse Ox 99 05/20/24 13:59 Oxygen Delivery Method Room Air 05/20/24 13:59 BMI result Body Mass Index 20.0 General: Non-toxic, NAD. Speaking full sentences. Skin: Warm dry throughout. No posterior back or lower extremity erythema, edema, rashes or vesicular lesions. Legs are symmetrical in size and shape bilaterally Eye: EOMI Respiratory: No respitatory distress or stridor Cardiac: No calf tenderness or pedal edema. Normal color to foot and LLE without palor MSK: No midline throacic ttp. + non-specific lumbar midline and paravertebral muscle ttp. Pain to L leg SLR in sitting position. Full sensation feet bilaterally. No ttp L hip along iliac crest, ASIS. + slight L sciatic region ttp. Neurology: Alert. No aphasia or facial droop. Gait stable with cane Psych: Good mood and affect Assessment & Plan Assessment & Plan (1) Hip pain, left: Code(s): M25.552 - Pain in left hip Plan: Xray L hip: no fx. No dislocation [facility] PCP follow up note sent in system ER s/s discussed (2) Back pain: Code(s): M54.9 - Dorsalgia, unspecified Qualifiers: Back pain laterality: bilateral Back pain location: thoracic back pain Chronicity: chronic Qualified Code(s): M54.6 - Pain in thoracic spine; G89.29 - Other chronic pain Plan: xray lumbar: no compression fx. + degenerative changes Discussed f/u with animal care attendant Will trial salonpas Call with concerns but hopfully PCP will reach out Continue cane for ambulatio Orders: Orders XR hip LT min 2V Today M25.552 - Pain in left hip XR lumbar spine 2-3V Today G89.29 - Other chronic pain, M54.6 - Pain in thoracic spine Coding Level of Care Code Est Pt Level 3 (56519) Diagnoses Hip pain, left M25.552 Chronic bilateral thoracic back pain M54.6; G89.29 Back pain laterality: bilateral Back pain location: thoracic back pain Chronicity: chronic
[2024-05-20 13:59] VITALS: BP 124/70; PULSE 70; O2SAT 99
--- OUTSIDE RECORDS SUMMARY | 2024-05-20 15:55 | XMS_ITS | Clinical Summary ---
Author Organization [facility] Address [address] [place] [address] Phone Care Team Providers Care Incident Response Specialist Name Role Phone Christi Helms MD Primary Care Provider [phone] Allergies Active Allergy Reactions Criticality Noted Date Comments Albuterol Other (see comments) 02/23/2016 Caused mouth sores. jitteriness [place] Other (see comments) 02/23/2016 Mouth breaks out. [...] to complete this topic Insurance [facility] [place] [facility] ([id number]) [place]ICAID [place] [facility] PPO ([id number]) Care Teams Incident Response Specialist Relationship Specialty Start Date End Date Christi Helms MD [address] [place], [place] [id number] PCP - General 03/21/20
--- OUTSIDE RECORDS SUMMARY | 2024-05-20 15:55 | XMS_ITS | Patient Health Record ---
Author Organization [facility] Address [address] [place] [address] Care Team Providers Care Coppersmith Helper Name Role Phone Ulises RASMUSSEN, Diamond Primary Care Provider Jagjit Pérez Unavailable [phone] Allergies Allergen (clinical drug ingredient) Drug/Non Drug Allergy documented on EMR Reaction Allergy Type Onset Date Status sulfamethoxazole Sulfamethoxazole Unknown Drug Allergy Active metoclopramide Reglan Unknown Drug Allergy Ac tive albuterol Albuterol Unknown Drug Allergy Active Reason For Referral No Information Medications Medication SIG (Take, Route, Frequency, Duration) [...] Once a day for 30 day(s) Active Immunizations Vaccine Route Administration Date Status Comme nts Flu vaccine no Preserv 3 and > Unknown 11/25/2013 Admin istered Influenza Unknown 11/09/2020 Administered Influenza Unknown 12/11/2023 Administered Problems Problem Type SNOMED Code ICD Code Onset Dates Problem Status W/U Status Risk Notes Problem Esophageal reflux (834318318) Esophageal reflux (K21.9) Active confirmed Problem 571992890 Encounter for screening for malignant neoplasm of colon (Z12.11) Active confirmed Problem 72822764 Weight loss (R63.4) Active confirmed Problem Gastric polyp (97419385) Gastric polyp (K31.7) Active confirmed Problem Gastritis (3455060) Gastritis (K29.70) Active confirmed Problem 44422505 Diarrhea, unspecified type (R19.7) Active confirmed Problem 28214380 Irritable bowel syndrome with both constipation and diarrhea (K58.2) Active confirmed Problem Diverticulosis of colon (024572004) Diverticulosis of colon (K57.30) Active confirmed Problem 85507087 Gastric adenoma (D13.1) Active confirmed Problem 140648906 Gastroesophageal reflux disease, unspecified whether esophagitis present (K21.9) Active confirmed Problem 77110284 Nausea and vomiting, unspecified vomiting type (R11.2) Active confirmed Vital Signs Temperature 97.5 degrees Fahrenheit 12/18/2023 Blood pressure diastolic 00 mm Hg 12/18/2023 Height 66 in 12/18/2023 Blood pressure systolic 000 mm Hg 12/18/2023 Weight 124 lb 6 oz lbs 12/18/2023 BMI 20.07 kg/m2 12/18/2023 Encounters Encounter Location Date Provider Diagnosis [facility] [address] [place] [phone] 12/18/2023 Jagjit Huy Irritable bowel synd damian with both constipation and diarrhea K58.2 and Gastroesophageal reflux disease, unspecified whether esophagitis present K21.9 [facility] [address] [place] [address] 08/26/2023 Jagjit Huy Assessments Encounter Date Diagnosis (ICD Code) Assessment [...] advised of her progress. Plan Of Treatment Pending Test Test Name Order Date CHEM [...] End Date [employer] (No Referral) [address] [address] [place] [address] [id number] HE CRAIG Self - patient is the insured MEDICAID OF [facility] [address] [place] [address] [id number] HE CRAIG Self - patient is the insured Medical (General) History Medical History History ICD Code COPD/Asthma IBS PTSD/Depression Denies [place],DM,CVA,renal disease GERD Upper endo in 05/2011 with [...]
--- OUTSIDE RECORDS SUMMARY | 2024-05-20 15:55 | XMS_ITS | Clinical Summary ---
Author Organization [facility] Address [address] [place] [address] Care Team Providers Care Ice Handler Name Role Phone Christi Helms MD Primary Care Provider [phone] Allergies Active Allergy Reactions Criticality Noted Date [...] age to complete this topic Care Teams Ice Handler Relationship Specialty Start Date End Date Christi Helms MD [address] [place] [address] PCP - General 08/27/19
--- OUTSIDE RECORDS SUMMARY | 2024-05-20 15:55 | XMS_ITS ---
Author Organization [facility] Address [address] [place] [address] Care Team Providers Care Sharemilker Name Role Phone Ulises RASMUSSEN, Diamond Primary Care Provider Jagjit Pérez [phone] REASON FOR VISIT IBS Medications Medication SIG (Take, Route, Fr equency, Duration) Notes Start Date End Date Status Omeprazole 20 MG One daily Orally Onc e every morning for 90 days Active Encounters Encounter Location Date Provider Diagnosis [facility] [address] [address] 08/26/2023 Jagjit Son Plan Of Treatment Medication Medication Name Sig Start Date Stop Date Notes Omeprazole 20 MG One daily Orally Onc e every morning for 90 days Progress Notes * HE CRAIGDOB:1950 (73 yo F)Acc No.[id number]:08/26/2023 Patient:?HE CRAIG :1950???Age:73 Y???Sex:Female Address:[address] [place] [address], [address] * Refills? Refill Omeprazole Capsule Delayed Release, 20 MG, Orally, 90, One daily, Once every morning, 90 days, Refills=3 * true * Date:? Generated for Estefany boykin/Po/eTransmitting on:?05/20/2024 03:54 PM EDT
--- OUTSIDE RECORDS SUMMARY | 2024-05-20 15:55 | XMS_ITS ---
Author Organization [facility] Address [address] [place] [address] Care Team Providers Care Cmm Operator Name Role Phone Diamond Montgomery MD Primary Care Provider Jagjit Pérez Unavailable [phone] Allergies Allergen (clinical drug ingredient) Drug/Non Drug [...] 12/18/2023 Encounters Encounter Location Date Provider Diagnosis [facility] [address] [place] [address] 12/18/2023 Jagjit Son Irritable bowel synd damian [...] * HE CRAIG KbDOB:1950 (73 yo F)Acc No.[id number]:12/18/2023 Progress Notes Patient:?HE CRAIG Provider:?Jagjit Son MD :1950???Age:73 Y???Sex:Female D ate:12/18/2023 Address:[address] [place], [place] [phone] Pcp:Diamond Montgomery MD Subjective: * Chief Complaints: * ???Patient presents today fo r IBS * HPI: ???incontinence:? I saw Helen in followup today in regard to her underlying history of irritable bowel syndrome and gastroesophageal reflux. ?I last saw Helen in July of 2022. [...] denies any abdominal pain, jaundice, nor fevers. ?Laboratories in October revealed normal chemistries. * ROS:?General/Constitutional:?Change in appetite?decreased.?Chills?denies.?Fatigue?denies.?Ophthalmologic:?Patient denies? Negative..?ENT:?Patient denies?Negative..?Respiratory:?Patient denies?No coughing/hemoptysis..?Cardiovascular:?Patient denies? No chest pain/orthopnea..?Gastrointestinal:?Comments?See HPI for details.?Genitourinary:?Patient denies? No dysuria/hematuria..?Musculoskeletal:?Patient denies? No specific arthralgias/myalgias..?Skin:?Patient denies?No rash/pruritus..?Neurologic:?Patient denies? No headaches/seizures..?Psychiatric:?Patient complaining of? Per PMH.? * Medical History:? * Surgical History:?Bilateral carpal tunnel Dog bite injury to left hand Hysterectomy Nasal surgery CCY Dog bite right hand * Hospitalization/Major Diagno stic Procedure:?No Hospitalization History. * Family History:?Father: dece ased, diagnosed with HTN (hypertension).?Mother: , diagnosed with Diabetes, HTN (hypertension).? Denies any history of colon cancer, IBD, nor celiac disease Sister with breast cancer and heart surgery. NO liver cancer in family history. * Social History:?Tobacco Use:?Tobacco Use/Smoking?Are you a: nonsmoker.?Drugs/Alcohol:?Alcohol Screen?Points: 0, Interpretation: Negative.?Miscellaneous:?Marital status: single. 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 ???Does not smoke nor use sig. amount of EtOH. * Medications:?TakingVitamin B 6 100 MG Tablet 1 tablet Orally Once [...] 12 Hour 1tablet Orally Twice a dayTaking Carbidopa- Levodopa 25-100 MG Tablet Oral Taking Dicyclomine HCl [...] reviewed and reconciled with the patient * Allergies:?ReglanAlbuterolSu lfamethoxazoleyes[Allergies Verified] Objective: * Vitals:?Wt: 124 lb 6 oz, Ht: 66 in, BMI:20.07 Index, BP: 000/00 mm Hg, Temp: 97.5. * Examination: ???General Examination: ?GENERAL APPEARANCE:?pleasant, well nourished, well developed, in no acute distress.?EYES:?sclera non-icteric.?ORAL CAVITY:?mucosa moist.?NECK/THYROID:?no cervical lymphadenopathy, neck supple.?SKIN:?nonjaundiced, no spider angiomata..?HEART:?S1, S2 normal.?LUNGS:?clear to auscultation bilaterally.?ABDOMEN:?normal bowel sounds, no guarding or rigidity, no hepatosplenomegaly, no masses palpable, soft, nontender, nondistended..?EXTREMITIES:?no edema.?NEUROLOGIC:?alert and oriented.? Assessment: * Assessment: 1.?Irritable bowel syndrome with both constipation and diarrhea - K58.2 (Primary)?2.?Gastroesophageal reflux disease, unspecified whether esophagitis present - K21.9? Overall, Helen seems to be doi ng [...] advised of her progress. Plan: * Treatment: 2.?Others? Notes: Repeat colonoscopy in 2026?? * Procedure Codes:?3017F COLOR ECTAL CA SCREEN DOC BUX2166F TOBACCO NON-ORQNA5625 BP SCR NOT PRFRM REC REASON NOS * Preventive Medicine:? ??Counseling:?Care goal follow-up plan:?Above Normal BMI Follow-up?Giving encouragement to exercise,?BMI management provided?Yes.? ??Urinary Incontinence:?Urinary Incontinence?Assessment:?Absent,?Plan of care documented:?No, reason not specified.? ??Screenings:?Fall Risk Screening?Fall Risk Assessment:?No falls in the past year,?Screening:?No falls in the past year,?Assessment:?Not performed, no reason specified,?Plan of Care:?Not documented, no reason specified.? * Follow Up:?prn * * Sign off status: Completed true * Provider:?Jagjit Son MD Date:? 024 Generated for Estefany boykin/Po/Arleth on:?05/20/2024 03:54 PM EDT History and Physical Notes * HPI [...]
== END 2024-05-20 15:26 | disposition home or self-care (01) ==
PROVIDERS: PCP Internal Medicine; Visit Provider Physician Assistant
DX: M25.552 Pain in left hip (principal); M54.6 Pain in thoracic spine; G89.29 Other chronic pain

== ENCOUNTER → 2024-05-20 13:27 | Outpatient (BNVA) | payer MEDICARE, MEDICAID, SELFPAY | PROVIDERS: PCP Internal Medicine; Visit Provider Physician Assistant ==

== ENCOUNTER 2024-05-20 14:21 | Outpatient (REF) | payer MEDICARE, MEDICAID, SELFPAY ==
--- NOTE | ~2024-05-20 | XR_ITS ---
EXAMINATION: XR LUMBAR SPINE 2-3 VIEWS HISTORY: M54.6 - Pain in thoracic spine COMPARISON: There are no prior studies for comparison. FINDINGS: AP, lateral, and coned down views of the lumbar spine are submitted. Osseous mineralization is normal. Five nonrib-bearing lumbar vertebral bodies are identified, maintaining normal height and alignment without evidence of fracture or spondylolisthesis. There is moderate degenerative disc disease at the L5-S1 level, with disc space narrowing and osteophyte formation. The posterior elements are intact. The visualized paraspinal soft tissues are unremarkable. XR/XR lumbar spine 2-3V IMPRESSION: Moderate degenerative disc disease at L5-S1. Electronically signed by: Jagjit Warren MD 05/20/2024 02:49 PM EDT
--- NOTE | ~2024-05-20 | XR_ITS ---
EXAMINATION: XR HIP 2 OR MORE VIEWS LEFT HISTORY: M25.552 - Pain in left hip COMPARISON: There are no prior studies for comparison. FINDINGS: Two views of the left hip are submitted. Osseous mineralization is normal. There is no fracture or dislocation. The joint space is maintained. The soft tissues are unremarkable. XR/XR hip LT min 2V IMPRESSION: Unremarkable examination of the left hip. Electronically signed by: Jagjit Warren MD 05/20/2024 02:48 PM EDT
--- OUTSIDE RECORDS SUMMARY | 2024-05-20 16:56 | XMS_ITS | Clinical Summary ---
Author Organization Unknown Care Team Providers Care Programs Assistant Name Role Phone YAIMA RASMUSSEN, KAVITA BEST Unavailable Unav agata SPEARS RN, SNEHAL Unavailable Unavailable Payers Payer Name Policy Type Policy Number Effective Date Expira tion Date ZZZ [employer] MEDICARE ADVANTAGE FFS [id number] [place] PDGM [id number] Problems Condition Name Condition Details Condition Category [...] on aerosol inhaler 06-25 00:00: 00 Yes [id number] 2 puff DIRECTED 2 puff DIRECTED (route: inhalation ) Med Classific ation: Respirato ry Therapy Agents bupropion HCl XL 300 mg 24 hr tablet, extended release 06-25 00:00: 00 Yes [id number] 1 tablet DAILY 1 tablet DAILY (route: oral) Med Classific ation: Central Nervous System Agents carbidopa 25 mg-levodopa 100 mg tablet 06-25 00:00: 00 Yes [id number] 1.5 tablet 4 TIMES DAILY 1.5 tablet 4 TIMES DAILY (route: oral) Med Classific ation: Central Nervous System Agents famotidine 40 mg tablet 2024-0 4-17 00:00: 00 09-01 23:59 :00 No [id number] 1 tablet DAILY 1 tablet DAILY (route: oral) Med Classific ation: Gastroint estinal Therapy Agents paroxetine 40 mg tablet 4-17 00:00: 00 Yes [id number] 1 tablet DAILY 1 tablet DAILY (route: oral) Med Classific ation: Central Nervous System Agents trazodone 50 mg tablet 4-17 00:00: 00 Yes [id number] Per instruc tions BEDTIME Per instructio ns BEDTIME (route: oral) Med Classific ation: Central Nervous System Agents gabapentin 100 mg capsule 5-24 00:00: 00 Yes [id number] pain Per instruc tions BEDTIME Per instructio ns BEDTIME (route: oral) Med Classific ation: Central Nervous System Agents omeprazole 40 mg capsule,del ayed release 24 00:00: 00 Yes [id number] 1 capsule DAILY 1 capsule DAILY (route: oral) Med Classific ation: Gastroint estinal Therapy Agents gabapentin 100 mg capsule 2023-03 0- 00:00: 00 Yes [id number] Per instruc tions 2 TIMES DAILY Per instructio ns 2 TIMES DAILY (route: oral) Med Classific ation: Central Nervous System Agents Vital Signs Vital Name Observation Time Observation Value Commen ts Pulse 2024-05-18 13:06:00.000 64 /min Pulse 2024-05-13 10:45:00.000 72 /min Pulse 2024-05-11 11:27:00.000 76 /min Pulse 2024-05-06 11:18:00.000 68 /min Pulse 2024-05-04 11:25:00.000 74 /min Pulse 2024-04-22 09:22:00.000 65 /min Pulse 2024-04-20 11:46:00.000 82 /min Pulse 2024-04-15 11:49:00.000 76 /min Pulse 2024-04-13 11:10:00.000 71 /min Pulse 2024-04-10 10:46:00.000 78 /min Pulse 2024-04-06 09:55:00.000 70 /min Pulse 2024-04-01 09:59:00.000 74 /min Pulse 2024-03-30 09:53:00.000 68 /min Pulse 2024-03-27 10:29:00.000 67 /min O2 Saturation (%) 2024-05-18 13:07:00.000 98 % O2 Saturation (%) 2024-05-13 10:46:00.000 96 % O2 Saturation (%) 2024-05-11 11:28:00.000 97 % O2 Saturation (%) 2024-05-06 11:19:00.000 97 % O2 Saturation (%) 2024-05-04 11:25:00.000 96 % O2 Saturation (%) 2024-04-22 09:24:00.000 99 % [...] Saturation (%) 2024-03-27 10:29:00.000 97 % Respirations 2024-05-18 13:06:00.000 20 /min Respirations 2024-05-13 10:45:00.000 20 /min Respirations 2024-05-11 11:27:00.000 20 /min Respirations 2024-05-06 11:18:00.000 20 /min Respirations 2024-05-04 11:25:00.000 20 /min Respirations 2024-04-24 09:43:00.000 20 /min Respirations 2024-04-22 09:22:00.000 20 /min Respirations 2024-04-20 11:46:00.000 20 /min Respirations 2024-04-15 11:49:00.000 20 /min Respirations 2024-04-13 11:10:00.000 20 /min Respirations 2024-04-10 10:46:00.000 20 /min Respirations 2024-04-06 09:55:00.000 20 /min Respirations 2024-04-01 09:59:00.000 20 /min Respirations 2024-03-30 09:53:00.000 20 /min Respirations 2024-03-27 10:29:00.000 20 /min Respirations 2024-03-25 10:06:00.000 20 /min Systolic Blood Pressure 2024-05-18 13:06:00.000 116 mm [Hg] Systolic Blood Pressure 2024-05-15 10:06:00.000 116 mm [Hg] Systolic Blood Pressure 2024-05-13 10:45:00.000 120 mm [Hg] Systolic Blood Pressure 2024-05-11 11:27:00.000 108 mm [Hg] Systolic Blood Pressure 2024-05-08 11:04:00.000 114 mm [Hg] Systolic Blood Pressure 2024-05-06 11:18:00.000 102 mm [Hg] Systolic Blood Pressure 2024-05-04 11:25:00.000 90 mm[ Hg] Systolic Blood Pressure 2024-04-24 09:43:00.000 110 mm [Hg] Systolic Blood Pressure 2024-04-22 09:22:00.000 110 mm [...] 10:06:00.000 120 mm [Hg] Diastolic Blood Pressure 2024-05-18 13:06:00.000 68 mm [Hg] Diastolic Blood Pressure 2024-05-15 10:06:00.000 66 mm [Hg] Diastolic Blood Pressure 2024-05-13 10:45:00.000 68 mm [Hg] Diastolic Blood Pressure 2024-05-11 11:27:00.000 72 mm [Hg] Diastolic Blood Pressure 2024-05-08 11:04:00.000 74 mm [Hg] Diastolic Blood Pressure 2024-05-06 11:18:00.000 58 mm [Hg] Diastolic Blood Pressure 2024-05-04 11:25:00.000 50 mm [Hg] Diastolic Blood Pressure 2024-04-24 09:43:00.000 72 mm [Hg] Diastolic Blood Pressure 2024-04-22 09:22:00.000 [...] AWARENESS FOR SAFETY AND WILL NOTIFY CLINICAL PAYMENT COLLECTOR AND PHYSICIAN/PROVIDER WITH ANY CHANGE IN CONDITION. [code = SKILLED NURSE WILL MAINTAIN SITUATIONAL AWARENESS FOR SAFETY AND WILL NOTIFY CLINICAL PAYMENT COLLECTOR AND PHYSICIAN/PROVIDER WITH ANY CHANGE IN CONDITION.] [...] X3 AND FORGETFUL. SHE DENIES SI/HI/AVH. SHE DENIES ANY FALLS. SHE IS HOMEBOUND AND REQUIRES THE ASSISTANCE OF ANOTHER PERSON TO LEAVE HOME. SHE C/O LEFT HIP PAIN RADIATING DOWN LEG ACROSS LOWER BACK WITH THROBBING AND NUMBNESS. SN LEFT MESSAGE FOR PCP WITH UPDATE ON PAIN LEVEL. SN EDUCATED HER ON STRETCHING EXERCISES, PROPER BODY MECHANICS, AND NON PHARMACOLOGICAL PAIN RELIEF MEASURES. 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 SHE DENIES SI/HI/AVH. SHE DENIES ANY FALLS. SHE IS HOMEBOUND AND REQUIRES THE ASSISTANCE OF ANOTHER PERSON TO LEAVE HER HOME D/T HER TREMORS R/T HER PARKINSON'S.SHE C/O LEFT HIP AND BACK PAIN 09/17. SHE REPORTS NO PAIN AT REST, SHE REPORTS PAIN WHEN AMBULATING AND WITH ACTIVITY. SN EDUCATED HER ON STRETCHING EXERCISES AND NON PHARMACOLOGICAL PAIN RELIEF MEASURES. 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 SHE MISSED ONE AFTERNOON DOSE OF HER SINEMET. SN EDUCATED HER ON USE OF ALARM/PROMPT MED REMINDER.</paragraph> Encounters Start Date/Time End Date/Time Encounter Type Admission Type Attending [facility] Facility Care Department Encounter ID Discharge Date Discharge Status Discharge Condition Discharge Reason Percent Goals Met 2023-09-27 00:00:00 2024-05-23 00:00:00 Outpatient RECERTIFIC SNEHAL JACQUES [facility] [id number] 91.67
--- OUTSIDE RECORDS SUMMARY | 2024-05-20 16:56 | XMS_ITS | Clinical Summary ---
Author Organization [facility] Address [address] [place] [address] Care Team Providers Care Entertainment Manager Name Role Phone Chirsti Helms MD Primary Care Provider [phone] Allergies Active Allergy Reactions Criticality Noted Date [...] age to complete this topic Care Teams Entertainment Manager Relationship Specialty Start Date End Date Christi Helms MD [address] [place] [address] PCP - General 08/27/19
--- OUTSIDE RECORDS SUMMARY | 2024-05-20 16:56 | XMS_ITS | Clinical Summary ---
Author Organization Unknown Care Team Providers Care Police Officer Crime Prevention Name Role Phone YAIMA RASMUSSEN, KAVITA BEST Unavailable Unav agata SPEARS RN, SNEHAL Unavailable Unavailable Payers Payer Name Policy Type Policy Number Effective Date Expira tion Date [employer] MEDICARE ADVANTAGE FFS [id number] [place] - [place] PDGM [id number] Problems Condition Name Condition Details Condition Category [...] on aerosol inhaler 06-25 00:00: 00 Yes [id number] 2 puff DIRECTED 2 puff DIRECTED (route: inhalation ) Med Classific ation: Respirato ry Therapy Agents bupropion HCl XL 300 mg 24 hr tablet, extended release 06-25 00:00: 00 Yes [id number] 1 tablet DAILY 1 tablet DAILY (route: oral) Med Classific ation: Central Nervous System Agents carbidopa 25 mg-levodopa 100 mg tablet 06-25 00:00: 00 Yes [id number] 1.5 tablet 4 TIMES DAILY 1.5 tablet 4 TIMES DAILY (route: oral) Med Classific ation: Central Nervous System Agents famotidine 40 mg tablet 2024-0 4-17 00:00: 00 09-01 23:59 :00 No [id number] 1 tablet DAILY 1 tablet DAILY (route: oral) Med Classific ation: Gastroint estinal Therapy Agents paroxetine 40 mg tablet 4-17 00:00: 00 Yes [id number] 1 tablet DAILY 1 tablet DAILY (route: oral) Med Classific ation: Central Nervous System Agents trazodone 50 mg tablet 4-17 00:00: 00 Yes [id number] Per instruc tions BEDTIME Per instructio ns BEDTIME (route: oral) Med Classific ation: Central Nervous System Agents gabapentin 100 mg capsule 5-24 00:00: 00 Yes [id number] pain Per instruc tions BEDTIME Per instructio ns BEDTIME (route: oral) Med Classific ation: Central Nervous System Agents omeprazole 40 mg capsule,del ayed release 24 00:00: 00 Yes [id number] 1 capsule DAILY 1 capsule DAILY (route: oral) Med Classific ation: Gastroint estinal Therapy Agents gabapentin 100 mg capsule 2023-03 0- 00:00: 00 Yes [id number] Per instruc tions 2 TIMES DAILY Per [...] AWARENESS FOR SAFETY AND WILL NOTIFY CLINICAL CUSTOM MILLER AND PHYSICIAN/PROVIDER WITH ANY CHANGE IN CONDITION. [code = SKILLED NURSE WILL MAINTAIN SITUATIONAL AWARENESS FOR SAFETY AND WILL NOTIFY CLINICAL CUSTOM MILLER AND PHYSICIAN/PROVIDER WITH ANY CHANGE IN CONDITION.] [...] CARE WILL BE ESTABLISHED THAT MEETS PATIENT'S SENIOR CARE NEEDS AND INCLUDES PATIENT GOAL FOR HOME [...] WITH HER PP SCHEDULE PER HER MED T RAIL TURNER.</paragraph> <paragraph>[Visit Date: 2024 by SNEHAL SPEARS RN]:</paragraph><paragraph>AO [...] End Date/Time Encounter Type Admission Type Attending [facility] Facility Care Department Encounter ID Discharge Date Discharge Status Discharge Condition Discharge Reason Percent Goals Met 2023-09-27 00:00:00 2024-05-23 00:00:00 Outpatient [facility] [id number]
--- OUTSIDE RECORDS SUMMARY | 2024-05-20 16:56 | XMS_ITS | Clinical Summary ---
Author Organization [facility] Address [address] [place] [address] Phone Care Team Providers Care Assembler Truck Trailer Name Role Phone Christi Helms MD Primary Care Provider [phone] Allergies Active Allergy Reactions Criticality Noted Date Comments Albuterol Other (see comments) 02/23/2016 Caused mouth sores. jitteriness [place] Other (see comments) 02/23/2016 Mouth breaks out. [...] to complete this topic Insurance MEDICAID [place] [facility] PPO ([id number]) [place] [facility] PPO ([id number]) Care Teams Assembler Truck Trailer Relationship Specialty Start Date End Date Christi Helms MD [address] [place], [place] [id number] PCP - General 03/21/20
== END 2024-05-20 14:22 | disposition home or self-care (01) ==
LOC: HO.HMGCX 14:21
PROVIDERS: PCP Internal Medicine; Visit Provider Physician Assistant
DX: M25.552 Pain in left hip (principal); M54.6 Pain in thoracic spine; G89.29 Other chronic pain
CPT/HCPCS: 72100; 73502; 99212

== ENCOUNTER → 2024-05-20 14:29 | Outpatient (BNV) | payer MEDICARE, MEDICAID, SELFPAY | PROVIDERS: PCP Internal Medicine; Visit Provider Radiology Diagnostic Radiology | DX: M51.369 Other intervertebral disc degeneration, lumbar region without mention of lumbar back pain or lower extremity pain (principal); M25.552 Pain in left hip | CPT/HCPCS: 72100; 73502 ==

== ENCOUNTER 2024-08-04 13:48 | Outpatient (AMB) | payer MEDICARE, MEDICAID, SELFPAY ==
[2024-08-04 13:51] VITALS: BP 110/68; PULSE 70; RESP 14; TEMP 36.5; O2SAT 96; BMI 22.3
--- NOTE | 2024-08-04 13:51 | MHC.PC.OV ---
Vital Signs 08/04/24 13:51 Height 5 ft 6 in Weight 138 lb BMI 22.3 BP 110/68 Respiration 14 Pulse 70 Pulse Source Pulse Oximeter Temp 97.7 F Temp Source Temporal Artery Scan Pulse Oximetry (%) 96 Oxygen Delivery Method Room Air Intake Visit Reasons: Transfer of care- eval back pain- (Ok per ) [employer] Required: No Accompanied by: friend- Louise Allergies tomato [TOMATO] Allergy (Severe, Verified 08/04/24 14:54) ANAPHYLAXIS Sulfa (Sulfonamide Antibiotics) Allergy (Intermediate, Verified 08/04/24 14:54) TRAVIS davis albuterol Allergy (Unknown, Verified 08/04/24 14:54) Unknown metoclopramide [Reglan] Allergy (Unknown, Verified 08/04/24 14:54) Unknown quetiapine [From Seroquel] Adverse Reaction (Severe, Verified 08/04/24 14:54) Hallucinations Medication List - Last Reconciled 08/04/24 by Dennis De Oliveira MD albuterol sulfate 90 mcg/actuation 2 puffs inhalation Q6H PRN bupropion HCl XL 300 mg PO QAM carbidopa-levodopa 25-100 mg 1.5 tabs PO QID 90 days famotidine 40 mg PO QAM gabapentin orally 1 cap qam q noon and 3 caps qhs; 100mg qam 100mg q noon and 300mg qhs multivitamin 1 tab PO DAILY paroxetine HCl 40 mg PO DAILY trazodone 25 - 50 mg (0.5 - 1 x 50 mg) PO BEDTIME MRX1 PRN 30 days Tobacco use date assessed: 08/04/24 Fall risk assessment: No Falls in past year Last assessed Fall Risk: 08/04/24 Dental Screening Dental Screen Date: 08/04/24 Did you have a dental visit in the last 12 months?: No Did you have a dental problem in the last 6 months where you did not have access to dental care?: No Was dental information given to patient?: Patient has dentist [facility] Medical History (Updated 08/04/24 @ 14:56 by Dennis De Oliveira MD) Low back pain Back pain Osteoporosis Restless legs syndrome (RLS) Parkinson's disease without dyskinesia or fluctuating manifestations History of uterine cancer Parkinson's disease without dyskinesia Sleep disorder Anemia CKD (chronic kidney disease), stage III PTSD (post-traumatic stress disorder) Hyperparathyroidism Family history of malignant neoplasm of endometrium Polycystic kidney disease Multinodular thyroid Back pain GERD (gastroesophageal reflux disease) Chronic fatigue IBS (irritable bowel syndrome) Fibromyalgia COPD (chronic obstructive pulmonary disease) Surgical History Hx laparoscopic cholecystectomy History of esophagogastroduodenoscopy (EGD) H/O colonoscopy (~06/23/21) History of left breast biopsy Hx of cholecystectomy History of sinus surgery History of carpal tunnel syndrome History of total abdominal hysterectomy Family History Father COPD (chronic obstructive pulmonary disease) Mother Arteriosclerosis Breast cancer, Onset Age: 80 Sister Diabetes mellitus Breast cancer, Onset Age: 70 Brother Bone cancer History of pituitary cancer Social History (Updated 08/04/24 @ 13:52 by ELIZABETH Strauss) Household Members: None Housing: House Do you presently have visiting nurse or other home services: No Alcohol intake: current Alcohol intake frequency: does not drink Patient Tobacco Use Status: Never used Tobacco e-Cigarette/Vaping Use: Never Used service: No Current occupational status: retired Sexual orientation: Straight/Heterosexual Cognitive needs: Yes (cane ) Hearing needs: No Vision needs: Yes Questionnaire PHQ-9 Over the last 2 weeks, how often have you been bothered by any of the following problems? 1. Little interest or pleasure in doing things: several days 2. Feeling down, depressed, or hopeless: not at all 3. Trouble falling or staying asleep, or sleeping too much: nearly every day 4. Feeling tired or having little energy: several days 5. Poor appetite or overeating: several days 6. Feeling bad about yourself - or that you are a failure or have let yourself or your family down: several days 7. Trouble concentrating on things, such as reading the newspaper or watching television: several days 8. Moving or speaking so slowly that other people could have noticed. Or the opposite - being so fidgety or restless that you have been moving around a lot more than usual: several days 9. Thoughts that you would be better off or of hurting yourself in some way: not at all Total score: 9 Source: Developed by Drs. Jagjit Osman, Gracia Kowalski, Emilio Wong and colleagues, with an educational luisa from [employer]. Thrive Questionnaire Date Thrive assessed: 08/04/24 I am a: Patient What is your living situation today?: I have a steady place to live Within the past 12 months, did the food you bought not last and you didn't have the money to get more?: Never true Within the past 12 months, did you worry whether your food would run out before you got money to buy more?: Never true Do you have trouble paying for medicines?: No Do you have trouble getting transportation to medical appointments?: No Do you have trouble paying your heating and electricity bill?: No Do you have trouble taking care of your child, family member or friend?: No Do you have trouble with day-to-day activities such as bathing, preparing meals, shopping, managing finances, etc.?: No Are you currently unemployed and looking for a job?: No Are you interested in more education?: No Please select the resources that you would like help with: None THRIVE Score: 0 AUDIT C Alcohol Use Questionnaire (AUDIT-C) 1. How often do you have a drink containing alcohol?: Never 3. How often do you have six or more drinks on one occasion?: Never Total Score: 0 CHEPE-7 AMB Questionnaire CHEPE-7 Date CHEPE - 7 assessed: 08/04/24 Feeling nervous, anxious, or on edge: 1 = Several days Not being able to stop or control worryin = Not at all Worrying too much about different things: 1 = Several days Trouble relaxin = Not at all Being so restless that it is hard to sit still: 0 = Not at all Becoming easily annoyed or irritable: 1 = Several days Feeling afraid as if something awful might happen: 0 = Not at all Total CHEPE-7 score (0-4 normal; 5-9 mild; 10-14 moderate; 15-21 severe): 3 Source: Developed by Drs. Jagjit Osman, Emilio Schmidt and colleagues, with an educational luisa from [employer]. Physical exam (Primary Care) Vital Signs: Last Vital Signs Temp 97.7 F 08/04/24 13:51 Pulse 70 08/04/24 13:51 Resp 14 08/04/24 13:51 BP 110/68 08/04/24 13:51 Pulse Ox 96 08/04/24 13:51 Oxygen Delivery Method Room Air 08/04/24 13:51 BMI result Body Mass Index 22.3 Tobacco/Smoking Status: Tobacco use Status Tobacco use date assessed 08/04/24 08/04/24 13:53 Patient Tobacco Use Status Never used Tobacco 08/04/24 13:53 e-Cigarette/Vaping Use Never Used 08/04/24 13:53 PHQ-9: PHQ-9 Score PHQ-9: Total score 9 08/04/24 14:04 Thrive Assessment: Date of Thrive Assessment Date Thrive assessed 08/04/24 08/04/24 13:53 Coding Level of Care Code Est Pt Level 4 (89075) Complex EM visit Add On G2211 Diagnoses Low back pain M54.50 Assessment & Plan Assessment & Plan (1) Low back pain: Code(s): M54.50 - Low back pain, unspecified Category: Medical Plan: NSAID and muscle relaxants ordered. PT ordered. discontinue gabapentin Plan History of Present Illness The patient is a 74-year-old female presenting with chronic lower back pain which began when she was in the hospital receiving ECT treatments for severe depression. The pain started in February and manifests on the left side, radiating to the leg with a burning quality. It has been unrelenting, worsening over time, and has disturbed her sleep. Despite efforts to address this with her previous physicians, the pain remains poorly controlled. Attempts to use medications like trazodone and gabapentin have not yielded improvement. Her history includes balance issues related to Parkinson's Disease, for which she uses a cane to mitigate falls, aggravated by the chronic pain. The patient also faces additional challenges due to osteoporosis without current treatment and chronic kidney issues identified during an MRI, leading to consultations with multiple specialists. Social History - Lives alone with a dog. - Relies on friends for grocery shopping and support. - Uses a cane for balance due to Parkinson's. - History of severe depression treated with ECT. - Supported by her nephew with finances, though with limited local family presence. Review of Systems - Musculoskeletal: Reports chronic lower back pain radiating to left leg, worsened by standing or movement. - Neurological: Reports balance issues related to Parkinson's Disease. - Genitourinary: Reports involuntary urinary leakage upon sneezing or coughing. - Psychological: History of severe depression, currently treated. - General: Reports an inability to drive and relies on friends for assistance. Physical Exam General: Cooperative and healthy appearing Nutritional Appearance: Well nourished Orientation/consciousness: Patient oriented x3 Limitations: No limitations Head: Normal to inspection General: Appearance normal, both eyes and all related structures Neck: Normal visual inspection Chest: Normal palpation of entire chest wall Respiratory: N ormal respiratory effort Neurology: Patient oriented x3, Parkinson's disease noted. Patient reports nerve pain and severe back pain, particularly on the left side near the hip, radiating down the leg. Mobility is affected; patient requires assistance or support to walk and uses a cane primarily for balance due to Parkinson's. Reports tingling and burning sensations. No recent falls reported. Reports urinary incontinence, which started before the back pain. No confusion or cognitive issues noted. Patient handles personal hygiene independently with support bars. Results - Labs: Elevated parathyroid hormone observed in previous labs. - Imaging: March X-ray showing narrowing of disc space; MRI of the abdomen for polycystic kidneys. Plan 1. Chronic Lower Back Pain - Initiate physical therapy and prescribe muscle relaxant/anti-inflammatory. 2. Parkinson's Disease - Maintain current treatment for Parkinson's Disease. 3. Osteoporosis - Plan to start treatment and reevaluate thyroid implications. 4. Severe Depression - Continue psychiatric care, re-evaluate trazodone's effect. 5. Chronic Kidney Disease - Continue CKD management with periodic reviews. Discussion Notes I discussed the likely musculoskeletal nature of the patient's back pain and proposed a treatment plan including physical therapy, a muscle relaxant, and an anti-inflammatory. I explained the importance of updating treatment for osteoporosis and suggested contacting Dr. Walsh regarding thyroid nodule concerns. I emphasized consistent follow-ups and clarified when to call for additional support if appointments prove challenging to secure. We reviewed stopping gabapentin due to ineffectiveness and considered continuing trazodone. The patient was made aware of blood work needed to check for inflammation and other underlying conditions. Patient Instructions - Start physical therapy for back exercises. - Take prescribed muscle relaxant and anti-inflammatory medication as directed. - Stop gabapentin if not helpful. - Continue trazodone if it improves sleep. - Schedule a follow-up appointment in three weeks. - Contact Dr. Walsh regarding the thyroid nodule. - Seek assistance from the clinic if appointment scheduling becomes difficult.
--- OUTSIDE RECORDS SUMMARY | 2024-08-04 14:05 | XMS_ITS | Clinical Summary ---
Author Organization Unknown Care Team Providers Care Ornament Setter Name Role Phone YAIMA RASMUSSEN, KAVITA BEST Unavailable Unav agata SPEARS RN, SNEHAL Unavailable Unavailable Payers Payer Name Policy Type Policy Number Effective Date Expira tion Date [employer] MEDICARE ADVANTAGE FFS [id number] MEDICARE - NGS [place] - PDGM [id number] Problems Condition Name Condition Details Condition Category Status Onset Date Resolution Date Last Treatment Date Treating Clinician Comments POST-TRAUMAT IC STRESS DISORDER, UNSPECIFIED Active 09-25 00:00: 00 PARKINSON'S DIS W/O DYSKINESIA, W/O MENTION OF FLUCTUATIONS Active 09-26 00:00: 00 Allergies, Adverse Reactions, Alerts Allergy Name Allergy Type Status Severity Reaction(s) Onset Date Inactive Date Treating Clinician Comments REGLAN Propensity to adverse reactions Active 2024-05 11:51:4 5 SEROQUEL Propensity to adverse reactions Active 2024-05 11:57:0 2 TOMATOS Propensity to adverse reactions Active 2023-09 11:50:4 8 SULFA MEDS Propensity to adverse reactions Active 2023-09 11:51:0 9 Medications Ordered Medication Name Filled Medication Name Start Date Stop Date Current Medication? Ordering Clinician Indication Dosage Frequency Signature (SIG) Comments Components albuterol sulfate HFA 90 mcg/actuati on aerosol inhaler 06-25 00:00: 00 Yes [id number] 2 puff DIRECTED 2 puff DIRECTED (route: inhalation ) Med Classific ation: Respirato ry Therapy Agents bupropion HCl XL 300 mg 24 hr tablet, extended release 06-25 00:00: 00 Yes [id number] 1 tablet DAILY 1 tablet DAILY (route: oral) Med Classific ation: Central Nervous System Agents carbidopa 25 mg-levodopa 100 mg tablet 06-25 00:00: 00 Yes [id number] 1.5 tablet 4 TIMES DAILY 1.5 tablet 4 TIMES DAILY (route: oral) Med Classific ation: Central Nervous System Agents famotidine 40 mg tablet 17 00:00: 00 09-01 23:59 :00 No [id number] 1 tablet DAILY 1 tablet DAILY (route: oral) Med Classific ation: Gastroint estinal Therapy Agents paroxetine 40 mg tablet -17 00:00: 00 Yes [id number] 1 tablet DAILY 1 tablet DAILY (route: oral) Med Classific ation: Central Nervous System Agents trazodone 50 mg tablet 17 00:00: 00 Yes [id number] Per instruc tions BEDTIME Per instructio ns BEDTIME (route: oral) Med Classific ation: Central Nervous System Agents gabapentin 100 mg capsule 24 00:00: 00 Yes [id number] pain Per instruc tions BEDTIME Per instructio ns BEDTIME (route: oral) Med Classific ation: Central Nervous System Agents omeprazole 40 mg capsule,del ayed release 09-01 00:00: 00 05-20 23:59 :00 No [id number] 1 capsule DAILY 1 capsule DAILY (route: oral) Med Classific ation: Gastroint estinal Therapy Agents gabapentin 100 mg capsule 2023-03 00:00: 00 Yes [id number] Per instruc tions 2 TIMES DAILY Per instructio ns 2 TIMES DAILY (route: oral) Med Classific ation: Central Nervous System Agents famotidine 40 mg tablet -16 00:00: 00 Yes [id number] 1 tablet EVERY AM 1 tablet EVERY AM (route: oral) Med Classific ation: Gastroint estinal Therapy Agents Tylenol Arthritis Pain 650 mg tablet,exte nded release 05-29 00:00: 00 Yes [id number] 1 tablet EVERY 8 HOURS 1 tablet EVERY 8 HOURS (route: oral) Med Classific ation: Analgesic , Anti-infl ammatory or Antipyret ic Vital Signs Vital Name Observation Time Observation Value Commen ts Pulse 2024-07-29 11:22:00.000 65 /min Pulse 2024-07-27 10:50:00.000 63 /min Pulse 2024-07-24 11:21:00.000 67 /min O2 Saturation (%) 2024-07-29 11:22:00.000 96 % O2 Saturation (%) 2024-07-27 10:53:00.000 97 % O2 Saturation (%) 2024-07-24 11:24:00.000 97 % Respirations 2024-07-29 11:22:00.000 20 /min Respirations 2024-07-27 10:50:00.000 20 /min Respirations 2024-07-24 11:21:00.000 20 /min Systolic Blood Pressure 2024-07-29 11:22:00.000 112 mm [Hg] Systolic Blood Pressure 2024-07-27 10:50:00.000 123 mm [Hg] Systolic Blood Pressure 2024-07-24 11:21:00.000 118 mm [Hg] Diastolic Blood Pressure 2024-07-29 11:22:00.000 63 mm [Hg] Diastolic Blood Pressure 2024-07-27 10:50:00.000 66 mm [Hg] Diastolic Blood Pressure 2024-07-24 11:21:00.000 71 mm [Hg] Plan of Treatment Planned Activity [...] HEALTH.] Future Scheduled Test SKILLED NU RSE TO PRE-POUR MEDICATION PER MEDICATION LIST 1WK8 [code = SKILLED NURSE TO PRE-POUR MEDICATION PER MEDICATION LIST 1WK8] Future Scheduled Test PATIENT MA Y HAVE ONE SET OF EMERGENCY MEDICATION NOT TO BE PRE-POURED ANY SOONER THAN 24 HOURS BEFORE SEVERE INCLEMENT WEATHER OR EMERGENT EVENT AND FOLLOWING SKILLED NURSE EVALUATION OF PATIENT SAFETY. [code = PATIENT MAY HAVE ONE SET OF EMERGENCY MEDICATION NOT TO BE PRE-POURED ANY SOONER THAN 24 HOURS BEFORE SEVERE INCLEMENT WEATHER OR EMERGENT EVENT AND FOLLOWING SKILLED NURSE EVALUATION OF PATIENT SAFETY.] Future Scheduled Test SKILLED NU RSE TO O/A OF PATIENTS MENTAL/BEHAVIORAL STATUS, ASSESS VITAL SIGNS 3WK8 ALLOW 2 PRNS FOR MEDICATION MANAGEMENT. [code = SKILLED NURSE TO O/A OF PATIENTS MENTAL/BEHAVIORAL STATUS, ASSESS VITAL SIGNS 3WK8 ALLOW 2 PRNS FOR MEDICATION MANAGEMENT.] Future Scheduled Test SKILLED NU RSE FOR O/A OF MENTAL HEALTH STATUS INCLUDING BEHAVIORAL SYMPTOMS TO IDENTIFY CHANGES ASSOCIATED WITH EXACERBATION FOR EARLY INTERVENTION OF COMPLICATIONS 3WK8 [code = SKILLED NURSE FOR O/A OF MENTAL HEALTH STATUS INCLUDING BEHAVIORAL SYMPTOMS TO IDENTIFY CHANGES ASSOCIATED WITH EXACERBATION FOR EARLY INTERVENTION OF COMPLICATIONS 3WK8] Future Scheduled Test SKILLED NU RSE FOR [...] Future Scheduled Test SKILLED NU RSE TO PERFORM HOME SAFETY AND FALL ASSESSMENT AND PROVIDE INSTRUCTION TO IMPLEMENT HOME SAFETY AND FALL PREVENTION STRATEGIES. [code = SKILLED NURSE TO PERFORM HOME SAFETY AND FALL ASSESSMENT AND PROVIDE INSTRUCTION TO IMPLEMENT HOME SAFETY AND FALL PREVENTION STRATEGIES.] Future Scheduled Test SKILLED NU RSE FOR OBSERVATION AND ASSESSMENT OF PATIENTS PAIN LEVEL AND EFFECTIVENESS OF PAIN MANAGEMENT REGIMEN. SKILLED NURSE TO INSTRUCT PATIENT/CAREGIVER REGARDING PHARMACOLOGIC AND NON-PHARMACOLOGIC PAIN CONTROL MEASURES. SKILLED NURSE TO REPORT TO PHYSICIAN IF PAIN IS UNCONTROLLED WITH CURRENT PAIN MANAGEMENT REGIMEN. [code = SKILLED NURSE FOR OBSERVATION AND ASSESSMENT OF PATIENTS PAIN LEVEL AND EFFECTIVENESS OF PAIN MANAGEMENT REGIMEN. SKILLED NURSE TO INSTRUCT PATIENT/CAREGIVER REGARDING PHARMACOLOGIC AND NON-PHARMACOLOGIC PAIN CONTROL MEASURES. SKILLED NURSE TO REPORT TO PHYSICIAN IF PAIN IS UNCONTROLLED WITH CURRENT PAIN MANAGEMENT REGIMEN.] Future Scheduled Test PATIENT ROBLES S A RISK OF HOSPITALIZATION AND ED USE. SKILLED NURSE TO ESTABLISH SUPPORT MEASURES TO MINIMIZE RISK OF HOSPITALIZATION AND ED USE, AND INSTRUCT PATIENT/CAREGIVER ON METHODS TO REDUCE AVOIDABLE HOSPITALIZATION AND ED USE. [code = PATIENT HAS A RISK OF HOSPITALIZATION AND ED USE. SKILLED NURSE TO ESTABLISH SUPPORT MEASURES TO MINIMIZE RISK OF HOSPITALIZATION AND ED USE, AND INSTRUCT PATIENT/CAREGIVER ON METHODS TO REDUCE AVOIDABLE HOSPITALIZATION AND ED USE.] Future Scheduled Test SKILLED NU RSE TO [...] PROBLEMS.] Future Scheduled Test SKILLED NU RSE FOR O/A OF MUSCULOSKELETAL STATUS AND TEACHING ON MEASURES TO MANAGE LEFT HIP/LEG PAIN AND TO MAINTAIN SAFETY WITH ACTIVITY [code = SKILLED NURSE FOR O/A OF MUSCULOSKELETAL STATUS AND TEACHING ON MEASURES TO MANAGE LEFT HIP/LEG PAIN AND TO MAINTAIN SAFETY WITH ACTIVITY] Future Scheduled Test SKILLED NU RSE FOR O/A OF CLIENT'S SLEEP PATTERNS. MAY TEACH INTERVENTIONS R/T ACQUIRING IMPROVED REST [code = SKILLED NURSE FOR O/A OF CLIENT'S SLEEP PATTERNS. MAY TEACH INTERVENTIONS R/T ACQUIRING IMPROVED REST] Future Scheduled Test SKILLED NU RSE FOR O/A OF CLIENT'S SOCIAL ISOLATION AND PROVIDE ASSISTANCE TO CLIENT IN DEVELOPMENT OF PLANNED ACTIVITIES [code = SKILLED NURSE FOR O/A OF CLIENT'S SOCIAL ISOLATION AND PROVIDE ASSISTANCE TO CLIENT IN DEVELOPMENT OF PLANNED ACTIVITIES] Future Scheduled Test SKILLED NU RSE TO [...] SERVICES.] Future Scheduled Test SKILLED NU RSE WILL MAINTAIN SITUATIONAL AWARENESS FOR SAFETY AND WILL NOTIFY CLINICAL HAND BUTTON SPLITTER AND PHYSICIAN/PROVIDER WITH ANY CHANGE IN CONDITION. [code = SKILLED NURSE WILL MAINTAIN SITUATIONAL AWARENESS FOR SAFETY AND WILL NOTIFY CLINICAL HAND BUTTON SPLITTER AND PHYSICIAN/PROVIDER WITH ANY CHANGE IN CONDITION.] Future Scheduled Test SKILLED NU RSE TO PROVIDE INSTRUCTION TO PATIENT/CAREGIVER RELATED TO DISCHARGE PLANNING. [code = SKILLED NURSE TO PROVIDE INSTRUCTION TO PATIENT/CAREGIVER RELATED TO DISCHARGE PLANNING. ] Goal 2023-11-22 Patient Goal - CONTINUE TO F EEL GOOD Goal 2024-01-20 Patient Goal - TO GET THINGS ORGANIZED Goal 2024-03-20 Patient Goal - TO STAY HEALT HY Goal 2024-05-20 Patient Goal - M HANS APPT WITH NEW THERAPIST Goal 2024-07-20 Patient Goal - T O GET OUT OF PAIN SO I CAN BE MORE ACTIVE Goal Patient Goal - STAY ACTIVE T HIS SUMMER Goal Provider Goal - A PLAN OF CARE WILL BE ESTABLISHED THAT MEETS PATIENT'S LONG TERM NEEDS AND INCLUDES PATIENT GOAL FOR HOME HEALTH. Goal Provider Goal - PATIENT WILL COMPLY WITH MEDICATION WHEN SKILLED NURSE PRE-POURS MEDICATION THROUGHOUT CERTIFICATION PERIOD. Goal Provider Goal - MEDICATION WILL BE AVAILABLE DURING INCLEMENT WEATHER OR EMERGENT EVENT THROUGHOUT CERTIFICATION PERIOD. Goal Provider Goal - ALTERED MENTAL/BEHAVIORAL STATUS WILL BE IDENTIFIED PROMPTLY AND INTERVENTION INITIATED QUICKLY TO MINIMIZE ASSOCIATED RISKS THROUGHOUT CERTIFICATION PERIOD. Goal Provider Goal - CHANGE IN GENERAL HEALTH STATUS WILL BE IDENTIFIED AND REPORTED TO PHYSICIAN FOR PROMPT INTERVENTION TO MINIMIZE ASSOCIATED RISKS THROUGHOUT CERTIFICATION PERIOD. Goal Provider Goal - PATIENT WILL BE ABLE TO PERFORM DAILY FUNCTIONS AND HAVE OPTIMAL IMPROVEMENT IN LEVEL OF ANXIETY THROUGHOUT CERTIFICATION PERIOD. Goal Provider Goal - PATIENT/CAREGIVER WILL VERBALIZE SIGNS AND SYMPTOMS OF PARKINSON'S DISEASE AND DEMONSTRATE METHODS TO MANAGE DISEASE PROCESS BY END OF CERTIFICATION PERIOD. Goal Provider Goal - PATIENT/CAREGIVER WILL VERBALIZE/DEMONSTRATE EFFECTIVE HOME SAFETY AND FALL PREVENTION STRATEGIES THROUGHOUT CERTIFICATION PERIOD. Goal Provider Goal - PATIENT/CAREGIVER WILL DEMONSTRATE UNDERSTANDING OF PHARMACOLOGIC AND NONPHARMACOLOGIC PAIN CONTROL MEASURES AND PATIENT WILL HAVE IMPROVEMENT IN PAIN INTERFERING WITH ACTIVITY EVIDENCED BY PAIN AT A LEVEL THAT IS ACCEPTABLE TO THE PATIENT AND PAIN LEVEL WITHIN ESTABLISHED PARAMETERS BY END OF CERTIFICATION PERIOD. Goal Provider Goal - PATIENT WILL HAVE SUPPORT MEASURES ESTABLISHED TO PREVENT HOSPITALIZATION AND ED USE AND PATIENT/CAREGIVER WILL VERBALIZE/DEMONSTRATE METHODS TO REDUCE AVOIDABLE HOSPITALIZATION AND ED USE BY END OF EPISODE. Goal Provider Goal - PATIENT/CAREGIVER WILL VERBALIZE UNDERSTANDING OF EDUCATION PROVIDED ON MEDICATIONS BY THE END OF THE CERTIFICATION PERIOD. Goal Provider Goal - PATIENT/CAREGIVER WILL VERBALIZE/DEMONSTRATE ABILITY TO MANAGE LEFT HIP/LEG PAIN MUSCULOSKELETAL DISEASE WHILE MAINTAINING SAFETY THROUGHOUT THE EPISODE. Goal Provider Goal - PATIENT WILL REPORT AT LEAST 6-8 HOURS A NIGHT, RESTFUL SLEEP PATTERNS ACHIEVED USING THERAPEUTIC INTERVENTIONS BEFORE THE END OF THE CERTIFICATION PERIOD. Goal Provider Goal - PATIENT WILL DEMONSTRATE AN INCREASED INTEREST IN SOCIALIZATION AND ACTIVITIES BY THE END OF THE CERTIFICATION PERIOD. Goal Provider Goal - PSYCHOSOCIAL NEEDS WILL BE IDENTIFIED AND PLAN IMPLEMENTED TO MINIMIZE RISK THROUGHOUT CERTIFICATION PERIOD. Goal Provider Goal - PATIENT WILL REMAIN SAFE IN THE COMMUNITY AND WILL BE FREE OF DANGER TO SELF AND OTHERS THROUGHOUT THE CERTIFICATION PERIOD. Goal Provider Goal - PATIENT/CAREGIVER WILL VERBALIZE UNDERSTANDING OF DISCHARGE PLANNING INSTRUCTIONS BY DATE OF DISCHARGE. Progress Notes Progress Notes <paragraph>[Visit Date: 2024 by SNEHAL SPEARS RN]:</paragraph><paragraph>AO X3 ANSD FORGETFUL. SHE DENIES SI/HI/AVH. SHE HAS AN APPT THIS WEEK WITH HER PSYCH PROVIDER KAVITA GARCES. SHE DENIES ANY FALLS. SHE C/O LEFT HIP PAAIN 10/18. FRENCH WS EDUCATED ON NON PHARMACOLOGICAL PAIN RELIEF MEASURES. FRENCH STATES SHE IS USING HEATINGB PAD WITH SOME RELIEFF. SHE REPORTS SHE HAS NOT FOLLOWED UP WITH SCHEDULING OUTPT PT SERVICES. 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 SHE DENIES ANY ADVERSE EFFECTS.</paragraph> Encounters Start Date/Time End Date/Time Encounter Type Admission Type Attending [facility] Care Department Encounter ID Discharge Date Discharge Status Discharge Condition Discharge Reason Percent Goals Met 2024-07-23 00:00:00 2024-09-20 00:00:00 Outpatient RECERTIFIC SNEHAL JACQUES [facility] [id number]
== END 2024-08-04 14:52 | disposition home or self-care (01) ==
LOC: HO.HMCSH 13:48
PROVIDERS: PCP Internal Medicine; Visit Provider Internal Medicine
DX: M54.50 Low back pain, unspecified (principal)

== ENCOUNTER → 2024-08-04 13:48 | Outpatient (BNVA) | payer MEDICARE, MEDICAID, SELFPAY | PROVIDERS: PCP Internal Medicine; Visit Provider Internal Medicine | DX: G20.A1 Parkinson's disease without dyskinesia, without mention of fluctuations (principal); M54.50 Low back pain, unspecified; G89.29 Other chronic pain; M81.0 Age-related osteoporosis without current pathological fracture; F32.A Depression, unspecified; N18.9 Chronic kidney disease, unspecified; Z91.81 History of falling | CPT/HCPCS: 96127; 99212 ==

== ENCOUNTER 2024-08-25 14:11 | Outpatient (AMB) | payer MEDICARE, MEDICAID, SELFPAY ==
[2024-08-25 14:15] VITALS: BP 114/55; PULSE 66; RESP 14; TEMP 36.4; O2SAT 98; BMI 22.4
--- NOTE | 2024-08-25 14:15 | A.OFFPC_ITS ---
Vital Signs 08/25/24 14:15 Height 5 ft 6 in Weight 139 lb BMI 22.4 BP 114/55 L Respiration 14 Pulse 66 Pulse Source Pulse Oximeter Temp 97.6 F Temp Source Temporal Artery Scan Pulse Oximetry (%) 98 Oxygen Delivery Method Room Air Intake Visit Reasons: 3 week f/u Materials Handler Required: No Accompanied by: Self / Same As Patient Allergies tomato [TOMATO] Allergy (Severe, Verified 08/25/24 14:55) ANAPHYLAXIS Sulfa (Sulfonamide Antibiotics) Allergy (Intermediate, Verified 08/25/24 14:55) TRAVIS davis albuterol Allergy (Unknown, Verified 08/25/24 14:55) Unknown metoclopramide [Reglan] Allergy (Unknown, Verified 08/25/24 14:55) Unknown quetiapine [From Seroquel] Adverse Reaction (Severe, Verified 08/25/24 14:55) Hallucinations Medication List - Last Reconciled 08/25/24 by Dennis De Oliveira MD albuterol sulfate 90 mcg/actuation 2 puffs inhalation Q6H PRN bupropion HCl XL 300 mg PO QAM carbidopa-levodopa 25-100 mg 1.5 tabs PO QID 90 days cyclobenzaprine 10 mg PO BEDTIME famotidine 40 mg PO QAM meloxicam 15 mg PO DAILY multivitamin 1 tab PO DAILY paroxetine HCl 40 mg PO DAILY trazodone 25 - 50 mg (0.5 - 1 x 50 mg) PO BEDTIME MRX1 PRN 30 days Tobacco use date assessed: 08/04/24 Dental Screening Dental Screen Date: 08/04/24 [facility] Medical History Low back pain Back pain Osteoporosis Restless legs syndrome (RLS) Parkinson's disease without dyskinesia or fluctuating manifestations History of uterine cancer Parkinson's disease without dyskinesia Sleep disorder Anemia CKD (chronic kidney disease), stage III PTSD (post-traumatic stress disorder) Hyperparathyroidism Family history of malignant neoplasm of endometrium Polycystic kidney disease Multinodular thyroid Back pain GERD (gastroesophageal reflux disease) Chronic fatigue IBS (irritable bowel syndrome) Fibromyalgia COPD (chronic obstructive pulmonary disease) Surgical History Hx laparoscopic cholecystectomy History of esophagogastroduodenoscopy (EGD) H/O colonoscopy (~06/23/21) History of left breast biopsy Hx of cholecystectomy History of sinus surgery History of carpal tunnel syndrome History of total abdominal hysterectomy Family History Father COPD (chronic obstructive pulmonary disease) Mother Arteriosclerosis Breast cancer, Onset Age: 80 Sister Diabetes mellitus Breast cancer, Onset Age: 70 Brother Bone cancer History of pituitary cancer Social History Household Members: None Housing: House Do you presently have visiting nurse or other home services: No Alcohol intake: current Alcohol intake frequency: does not drink Patient Tobacco Use Status: Never used Tobacco e-Cigarette/Vaping Use: Never Used service: No Current occupational status: retired Sexual orientation: Straight/Heterosexual Cognitive needs: Yes (cane ) Hearing needs: No Vision needs: Yes Questionnaire PHQ-9 Over the last 2 weeks, how often have you been bothered by any of the following problems? 1. Little interest or pleasure in doing things: several days 2. Feeling down, depressed, or hopeless: not at all 3. Trouble falling or staying asleep, or sleeping too much: nearly every day 4. Feeling tired or having little energy: several days 5. Poor appetite or overeating: several days 6. Feeling bad about yourself - or that you are a failure or have let yourself or your family down: several days 7. Trouble concentrating on things, such as reading the newspaper or watching television: several days 8. Moving or speaking so slowly that other people could have noticed. Or the opposite - being so fidgety or restless that you have been moving around a lot more than usual: several days 9. Thoughts that you would be better off or of hurting yourself in some way: not at all Total score: 9 Source: Developed by Drs. Jagjit Osman, Gracia Kowalski, Emilio Wong and colleagues, with an educational luisa from [employer]. Thrive Questionnaire Date Thrive assessed: 08/04/24 I am a: Patient What is your living situation today?: I have a steady place to live Within the past 12 months, did the food you bought not last and you didn't have the money to get more?: Never true Within the past 12 months, did you worry whether your food would run out before you got money to buy more?: Never true Do you have trouble paying for medicines?: No Do you have trouble getting transportation to medical appointments?: No Do you have trouble paying your heating and electricity bill?: No Do you have trouble taking care of your child, family member or friend?: No Do you have trouble with day-to-day activities such as bathing, preparing meals, shopping, managing finances, etc.?: No Are you currently unemployed and looking for a job?: No Are you interested in more education?: No Please select the resources that you would like help with: None THRIVE Score: 0 AUDIT C Alcohol Use Questionnaire (AUDIT-C) 1. How often do you have a drink containing alcohol?: Never 3. How often do you have six or more drinks on one occasion?: Never Total Score: 0 CHEPE-7 AMB Questionnaire CHEPE-7 Date CHEPE - 7 assessed: 08/04/24 Feeling nervous, anxious, or on edge: 1 = Several days Not being able to stop or control worryin = Not at all Worrying too much about different things: 1 = Several days Trouble relaxin = Not at all Being so restless that it is hard to sit still: 0 = Not at all Becoming easily annoyed or irritable: 1 = Several days Feeling afraid as if something awful might happen: 0 = Not at all Total CHEPE-7 score (0-4 normal; 5-9 mild; 10-14 moderate; 15-21 severe): 3 Source: Developed by Drs. Jagjit Osman, Gracia Kowalski, Emilio Wong and colleagues, with an educational luisa from [employer]. Physical exam (Primary Care) Vital Signs: Last Vital Signs Temp 97.6 F 08/25/24 14:15 Pulse 66 08/25/24 14:15 Resp 14 08/25/24 14:15 BP 114/55 L 08/25/24 14:15 Pulse Ox 98 08/25/24 14:15 Oxygen Delivery Method Room Air 08/25/24 14:15 BMI result Body Mass Index 22.4 Tobacco/Smoking Status: Tobacco use Status Tobacco use date assessed 08/04/24 08/25/24 14:25 Patient Tobacco Use Status Never used Tobacco 08/25/24 14:25 e-Cigarette/Vaping Use Never Used 08/25/24 14:25 PHQ-9: PHQ-9 Score PHQ-9: Total score 9 08/25/24 14:25 Thrive Assessment: Date of Thrive Assessment Date Thrive assessed 08/04/24 08/25/24 14:25 Coding Level of Care Code Est Pt Level 4 (33232) Complex EM visit Add On G2211 Diagnoses Major depression with psychotic features F32.3 Chronic bilateral thoracic back pain M54.6; G89.29 Back pain location: thoracic back pain Chronicity: chronic Back pain laterality: bilateral Assessment & Plan Assessment & Plan (1) Major depression with psychotic features: Code(s): F32.3 - Major depressive disorder, single episode, severe with psychotic features Category: Medical Plan: Encouraged to get blood work done. (2) Back pain: Code(s): M54.9 - Dorsalgia, unspecified Category: Medical Qualifiers: Back pain location: thoracic back pain Chronicity: chronic Back pain laterality: bilateral Qualified Code(s): M54.6 - Pain in thoracic spine; G89.29 - Other chronic pain Plan: Intermittent use of Meloxicam suggested. Plan History of Present Illness - The patient is a 74-year-old female presenting with back pain. - The patient substitutes Dr. Shearer for Dr. Ji Morejon for back pain management. - Cyclobenzaprine and meloxicam are currently utilized; meloxicam showed improvement but symptoms returned when stopped. - Cyclobenzaprine also being used raises trazodone management concerns as it increases sedation risks. - The patient has pre-existing kidney conditions affecting medication management. - The patient is a 74-year-old female presenting with insomnia. - Discussed holding off on trazodone if using cyclobenzaprine and meloxicam regularly due to sedative interactions. - The patient is a 74-year-old female presenting with Irritable Bowel Syndrome. - Reports exacerbation of symptoms due to prolonged consumption of homemade citrus juice, aware of citrus intolerance. - The patient is a 74-year-old female with a sty on the upper eyelid increasing over six months. - Non-responsive to conservative measures, probable need for surgical removal. 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 - Discussed [employer] and dedication to previous roles in animal care and training. - Owns a pet, a Italian Pimentel known for its gentle temperament, indicating past interest in specific dog breeds. Review of Systems - Musculoskeletal: Reports improvement in back pain with meloxicam; recurrence of symptoms after discontinuation. - Sleep: Reports concerns of sedation from medication combination. - Gastrointestinal: Reports flare of IBS triggered by citrus juice. - Ophthalmologic: Reports a persistent and enlarging sty on the upper eyelid for about six months. Physical Exam General: Cooperative and healthy appearing Nutritional Appearance: Well nourished Orientation/consciousness: Patient oriented x3 Limitations: No limitations Head: Normal to inspection General: Appearance normal, both eyes and all related structures Neck: Normal visual inspection Chest: Normal palpation of entire chest wall Respiratory: N ormal respiratory effort Neurology: Patient oriented x3, but reports a sty on the upper eyelid that has been present for at least six months. Results Plan 1. Back Pain - Continue meloxicam intermittently, coupled with cyclobenzaprine. Caution due to the patient?s kidney condition. 2. Insomnia - Temporarily discontinue trazodone; advised due to sedation risk with concurrent medications. 3. Irritable Bowel Syndrome - Eliminate citrus from diet to control flare-up symptoms. 4. Sty On Upper Eyelid - Referral to lapping machine tender for evaluation and potential removal. Discussion Notes I discussed with the patient the successful relief of her back pain with meloxicam and cyclobenzaprine. I advised caution in balancing these with trazodone due to potential sedative effects, especially considering her kidney issues. For her IBS, I explained the likelihood of exacerbation due to citrus intake and recommended adjusting her diet. We noted the duration of the sty on her upper eyelid and agreed on a referral to an lapping machine tender for surgical consideration due to its persistence and growth. I emphasized caution with medication intake intervals to limit renal strain and encouraged proper follow- up on lab testing and health maintenance in line with prior standing orders and upcoming appointments. Patient Instructions - Continue meloxicam and cyclobenzaprine with periods of rest to reduce kidney strain. - Avoid taking trazodone with other sedative agents. - Avoid citrus to prevent IBS symptoms from worsening. - Make an appointment with an eye doctor to assess and possibly remove the sty. - Follow up with necessary lab work as previously discussed and agreed upon. - Keep mammogram and colonoscopy schedules up to date as planned.
--- OUTSIDE RECORDS SUMMARY | 2024-08-25 16:22 | XMS_ITS ---
Author Organization [facility] Address [address] [place] [address] Care Team Providers Care Production Bow Maker Name Role Phone Diamond Montgomery MD Primary Care Provider Jagjit Pérez Unavailable [phone] Allergies Allergen (clinical drug ingredient) Drug/Non Drug [...] Provider Diagnosis [facility] [address] [place] [address] 12/18/2023 Jagjit Son Irritable bowel synd damian [...] * HE CRAIG KbDOB:1950 (73 yo F)Acc No.[id number]:12/18/2023 Progress Notes Patient:?HE CRAIG Provider:?Jagjit Son MD :1950???Age:73 Y???Sex:Female D ate:12/18/2023 Address:[address] [place], [place] [id number] Pcp:Diamond Montgomery MD Subjective: * Chief Complaints: [...] Screen?Points: 0, Interpretation: Negative.?Miscellaneous:?Marital status: single. 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 ???Does not smoke nor use sig. [...] Procedure Codes:?3017F COLOR ECTAL CA SCREEN DOC [id number] TOBACCO [id number] BP SCR NOT PRFRM REC REASON NOS [...] MD Date:? 024 Generated for Estefany boykin/Po/Arleth on:?08/25/2024 04:22 PM EDT History and Physical Notes * [...]
== END 2024-08-25 14:57 | disposition home or self-care (01) ==
LOC: HO.HMCSH 14:11
PROVIDERS: PCP Internal Medicine; Visit Provider Internal Medicine
DX: F32.3 Major depressive disorder, single episode, severe with psychotic features (principal); M54.6 Pain in thoracic spine; G89.29 Other chronic pain

== ENCOUNTER → 2024-08-25 14:11 | Outpatient (BNVA) | payer MEDICARE, MEDICAID, SELFPAY | PROVIDERS: PCP Internal Medicine; Visit Provider Internal Medicine | DX: F32.3 Major depressive disorder, single episode, severe with psychotic features (principal); M54.6 Pain in thoracic spine; G89.29 Other chronic pain; K58.9 Irritable bowel syndrome, unspecified; H00.019 Hordeolum externum unspecified eye, unspecified eyelid | CPT/HCPCS: 96127; 99212 ==

== ENCOUNTER 2024-08-28 10:32 | Outpatient (REF) | payer MEDICARE, MEDICAID, SELFPAY ==
--- OUTSIDE RECORDS SUMMARY | 2023-12-18 11:20 | XMS_ITS ---
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 Role Phone Diamond Montgomery MD Primary Care Provider Jagjit Pérez Unavailable [phone] Allergies Allergen (clinical drug ingredient) Drug/Non Drug Allergy documented on EMR Reaction Allergy Type Onset Date Status sulfamethoxazole Sulfamethoxazole Unknown Drug Allergy Active metoclopramide Reglan Unknown Drug Allergy Ac tive albuterol Albuterol Unknown Drug Allergy Active REASON FOR VISIT Patient presents today for IBS Medications Medication SIG (Take, Route, Frequency, Duration) Notes Start Date End Date Status Gabapentin 100 MG Oral for 90 Not-Taking Atrovent HFA 17 MCG/ACT 2 puffs Inhalati on Four times a day Active PARoxetine HCl 30 MG 1 tablet in the mor florencia Orally Once a day Active clonazePAM 0.5 MG 1po Orally qid Active Vitamin B6 100 MG 1 tablet Orally Once a day for 30 day(s) Active Famotidine 40 MG TAKE 1 TABLET BY JJ TWICE DAILY FOR REFLUX. for 90 Active Dicyclomine HCl 10 MG TAKE 1 TO 2 CAPSUL ES BY MOUTH EVERY 6 HOURS NEEDED FOR ABDOMINAL DISCOMFORT/CRAMPS FOR 30 DAYS. for 90 Active Omeprazole 20 MG One daily Orally Onc e every morning for 90 days Active Carbidopa-Levodopa 25-100 MG Oral for 90 Active buPROPion HCl ER (SR) 150 MG 1tablet Orally Twice a day Active Vital Signs Temperature 97.5 degrees Fahrenheit 12/18/19 24 Blood pressure systolic 000 mm Hg 12/18/19 24 Blood pressure diastolic 00 mm Hg 024 Height 66 in 12/18/2023 Weight 124 lb 6 oz lbs 12/18/2023 BMI 20.07 kg/m2 12/18/2023 Encounters Encounter Location Date Provider Diagnosis [facility] [address] [place] [address] 12/18/2023 Jagjit Son Irritable bowel synd damian with both constipation and diarrhea K58.2 and Gastroesophageal reflux disease, unspecified whether esophagitis present K21.9 Assessments Encounter Date Diagnosis (ICD Code) Assessment Notes Treatment Notes Treatment Clinical Notes Section Notes 12/18/2023 Irritable bowel syndrome with both constipation and diarrhea (ICD-10 - K58.2) Overall, Helen seems to be doing well from a GI standpoint at the present time. Her 25 pound weight gain since her psychiatric hospitalization earlier in the year is certainly very reassuring. She is not having any new or worrisome GI complaints at the present time. I did advise her To certainly continue famotidine as she does report that is working well for her previous reflux symptoms. Her irritable bowel syndrome seems to be quite stable without any specific regimen. We did review that she will be due for a followup screening colonoscopy in 2026.. I. don't think she needs any particular diagnostic nor therapeutic intervention on my part at the present time. If things remain well she will see me on a p.r.n. basis. I did advise her to certainly call should she have any problems or questions I can be of assistance with prior to her next colonoscopy in 2026. Helen was comfortable with this plan. Thank you again for allowing me to participate in Helen's care. I shall continue to keep you advised of her progress. 12/18/2023 Gastroesophageal reflux disease, unspecified whether esophagitis present (ICD-10 - K21.9) Continue Famotidine Overall, Helen seems to be doing well from a GI standpoint at the present time. Her 25 pound weight gain since her psychiatric hospitalization earlier in the year is certainly very reassuring. She is not having any new or worrisome GI complaints at the present time. I did advise her To certainly continue famotidine as she does report that is working well for her previous reflux symptoms. Her irritable bowel syndrome seems to be quite stable without any specific regimen. We did review that she will be due for a followup screening colonoscopy in 2026.. I. don't think she needs any particular diagnostic nor therapeutic intervention on my part at the present time. If things remain well she will see me on a p.r.n. basis. I did advise her to certainly call should she have any problems or questions I can be of assistance with prior to her next colonoscopy in 2026. Helen was comfortable with this plan. Thank you again for allowing me to participate in Helen's care. I shall continue to keep you advised of her progress. 12/18/2023 Other Repeat colonoscopy in 2026 Overall, Helen seems to be doing well from a GI standpoint at the present time. Her 25 pound weight gain since her psychiatric hospitalization earlier in the year is certainly very reassuring. She is not having any new or worrisome GI complaints at the present time. I did advise her To certainly continue famotidine as she does report that is working well for her previous reflux symptoms. Her irritable bowel syndrome seems to be quite stable without any specific regimen. We did review that she will be due for a followup screening colonoscopy in 2026.. I. don't think she needs any particular diagnostic nor therapeutic intervention on my part at the present time. If things remain well she will see me on a p.r.n. basis. I did advise her to certainly call should she have any problems or questions I can be of assistance with prior to her next colonoscopy in 2026. Helen was comfortable with this plan. Thank you again for allowing me to participate in Helen's care. I shall continue to keep you advised of her progress. Plan Of Treatment Treatment Notes Assessment Notes Gastroesophageal reflux dise ase, unspecified whether esophagitis present Continue Famotidine Other Repeat colonoscopy i n 2026 Next Appt Details Follow Up: prn, Reason: Progress Notes * HE CRAIG KbDOB:1950 (73 yo F)Acc No.[id number]:12/18/2023 Progress Notes Patient: HE TOSCANO Provider: Itzel Son MD :1950 A ge:73 Y S ex:Female Date:12/18/2023 Address:[address] [place] [address] [id number] Pcp:Diamond Montgomery MD Subjective: * Chief Complaints: * P atient presents today for IBS * HPI: i ncontinence: I saw Helen in followup today in regard to her underlying history of irritable bowel syndrome and gastroesophageal reflux. I last saw Helen in July of 2022. At that time her symptoms of reflux and irritable bowel syndrome seem to be stable her regimen of some famotidine and dicyclomine. She did have a stressful end of 2022 due to having had to leave her job and the of her boyfriend. She describes been hospitalized for about a month at the beginning of 2023 due to depression and reports that she was down to 100 pounds. However, since getting out of the hospital she has been doing better both in regard to her depression and her GI symptoms. She is still receiving some outpatient ECT for depression which seems to help her a lot by her description. She is eating better and has gained about 25 pounds. She has been using famotidine twice a day with good relief of heartburn symptoms. She denies any dysphagia, early satiety, nausea, nor Vomiting. For the most part her bowel movements have been fairly regular and without any significant diarrhea, constipation, hematochezia, or melena. She denies any abdominal pain, jaundice, nor fevers. L aboratories in October revealed normal chemistries. * ROS: G eneral/Constitutional: Change in appetite d ecreased. C hills d enies.?Fatigue d enies. O phthalmologic: Patient denies Negative.. E NT: Patient denies N egative.. R espiratory: Patient denies N o coughing/hemoptysis.. C ardiovascular: Patient denies No chest pain/orthopnea.. G astrointestinal: Comments [facility] for details. G enitourinary: Patient denies No dysuria/hematuria.. M usculoskeletal: Patient denies No specific arthralgias/myalgias.. ? S kin: Patient denies N o rash/pruritus.. N eurologic: Patient denies No headaches/seizures.. P sychiatric: Patient complaining of Per PMH. * Medical History: * Surgical History: B ilateral carpal tunnel Dog bite injury to left hand Hysterectomy Nasal surgery CCY Dog bite right hand * Hospitalization/Major Diagno stic Procedure: N o Hospitalization History. * Family History: F ather: , diagnosed with HTN (hypertension). M other: , diagnosed with Diabetes, HTN (hypertension). Denies any history of colon cancer, IBD, nor celiac disease Sister with breast cancer and heart surgery. NO liver cancer in family history. * Social History: T obacco Use: T obacco Use/Smoking A re you a: nonsmoker. D rugs/Alcohol: A lcohol Screen P oints: 0, Interpretation: Negative. M iscellaneous: M arital status: single. 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 D oes not smoke nor use sig. amount of EtOH. * Medications: T akingVitamin B6 100 MG Tablet 1 tablet Orally Once a dayclonazePAM 0.5 MG Tablet Dispersible 1po Orally qidPARoxetine HCl 30 MG Tablet 1 tablet in the morning Orally Once a dayAtrovent HFA 17 MCG/ACT Aerosol Solution 2 puffs Inhalation Four times a daybuPROPion HCl ER (SR) 150 MG Tablet Extended Release 12 Hour 1tablet Orally Twice a dayCarbidopa-Levodopa 25-100 MG Tablet Oral Dicyclomine HCl 10 MG Capsule TAKE 1 TO 2 CAPSULES BY MOUTH EVERY 6 HOURS NEEDED FOR ABDOMINAL DISCOMFORT/CRAMPS FOR 30 DAYS. Famotidine 40 MG Tablet TAKE 1 TABLET BY MOUTH TWICE DAILY FOR REFLUX. Omeprazole 20 MG Capsule Delayed Release One daily Orally Once every morningTaking Vitamin B6 100 MG Tablet 1 tablet Orally Once a dayTaking clonazePAM 0.5 MG Tablet Dispersible 1po Orally qidTaking PARoxetine HCl 30 MG Tablet 1 tablet in the morning Orally Once a dayTaking Atrovent HFA 17 MCG/ACT Aerosol Solution 2 puffs Inhalation Four times a dayTaking buPROPion HCl ER (SR) 150 MG Tablet Extended Release 12 Hour 1tablet Orally Twice a dayTaking Carbidopa-Levodopa 25-100 MG Tablet Oral Taking Dicyclomine HCl 10 MG Capsule TAKE 1 TO 2 CAPSULES BY MOUTH EVERY 6 HOURS NEEDED FOR ABDOMINAL DISCOMFORT/CRAMPS FOR 30 DAYS. Taking Famotidine 40 MG Tablet TAKE 1 TABLET BY MOUTH TWICE DAILY FOR REFLUX. Taking Omeprazole 20 MG Capsule Delayed Release One daily Orally Once every morningNot-Taking/PRNGabapentin 100 MG Capsule Oral Medication List reviewed and reconciled with the patientNot-Taking/PRN Gabapentin 100 MG Capsule Oral Medication List reviewed and reconciled with the patient * Allergies: R eglanAlbuterolSulfamethoxazoleyes[Allergies Verified] Objective: * Vitals: W t: 124 lb 6 oz, Ht: 66 in, BMI:20.07 Index, BP: 000/00 mm Hg, Temp: 97.5. * Examination: G eneral Examination: GENERAL APPEARANCE: p caron, well nourished, well developed, in no acute distress. EYES: s clera non-icteric. ORAL CAVITY: m ucosa moist. NECK/THYROID: n o cervical lymphadenopathy, neck supple.? SKIN: n onjaundiced, no spider angiomata.. HEART: S 1, S2 normal. LUNGS: c lear to auscultation bilaterally. ABDOMEN: n ormal bowel sounds, no guarding or rigidity, no hepatosplenomegaly, no masses palpable, soft, nontender, nondistended.. EXTREMITIES: n o edema. NEUROLOGIC: a lert and oriented. Assessment: * Assessment: 1. I rritable bowel syndrome with both constipation and diarrhea - K58.2 (Primary) 2 . G astroesophageal reflux disease, unspecified whether esophagitis present - K21.9 Overall, Helen seems to be doi ng well from a GI standpoint at the present time. Her 25 pound weight gain since her psychiatric hospitalization earlier in the year is certainly very reassuring. She is not having any new or worrisome GI complaints at the present time. I did advise her To certainly continue famotidine as she does report that is working well for her previous reflux symptoms. Her irritable bowel syndrome seems to be quite stable without any specific regimen. We did review that she will be due for a followup screening colonoscopy in 2026.. I. don't think she needs any particular diagnostic nor therapeutic intervention on my part at the present time. If things remain well she will see me on a p.r.n. basis. I did advise her to certainly call should she have any problems or questions I can be of assistance with prior to her next colonoscopy in 2026. Helen was comfortable with this plan. Thank you again for allowing me to participate in Helen's care. I shall continue to keep you advised of her progress. Plan: * Treatment: 2. O thers Notes: Repeat colonoscopy in 2026 * Procedure Codes: 3 017F COLORECTAL CA SCREEN DOC [id number] TOBACCO [id number] BP SCR NOT PRFRM REC REASON NOS * Preventive Medicine: Counseling: C are goal follow-up plan: A franklyn Normal BMI Follow-up G iving encouragement to exercise, B TX management provided Y es. Urinary Incontinence: U rinary Incontinence A ssessment: A bsent, P nirmala of care documented: N o, reason not specified. Screenings: F all Risk Screening F all Risk Assessment: N o falls in the past year, S creening: N o falls in the past year, A ssessment: N ot performed, no reason specified, P nirmala of Care: N ot documented, no reason specified. * Follow Up: p rn * * Sign off status: Completed true * Provider: Itzel Son MD Date: Generated for Estefany boykin/Po/Arleth on: 08/28/2024 10:56 AM EDT History and Physical Notes * HPI (History of Present Illness) Category Sub-Category Detail Notes Category Not es incontinence I saw Helen in followup today in regard to her underlying history of irritable bowel syndrome and gastroesophageal reflux. I last saw Helen in July of 2022. At that time her symptoms of reflux and irritable bowel syndrome seem to be stable her regimen of some famotidine and dicyclomine. She did have a stressful end of 2022 due to having had to leave her job and the of her boyfriend. She describes been hospitalized for about a month at the beginning of 2023 due to depression and reports that she was down to 100 pounds. However, since getting out of the hospital she has been doing better both in regard to her depression and her GI symptoms. She is still receiving some outpatient ECT for depression which seems to help her a lot by her description. She is eating better and has gained about 25 pounds. She has been using famotidine twice a day with good relief of heartburn symptoms. She denies any dysphagia, early satiety, nausea, nor Vomiting. For the most part her bowel movements have been fairly regular and without any significant diarrhea, constipation, hematochezia, or melena. She denies any abdominal pain, jaundice, nor fevers. Laboratories in October revealed normal chemistries. Examination Category Sub-Category Detail Notes Category Not es General Examination GENERAL APPEARANCE: pleasant , well nourished, well developed, in no acute distress EYES: sclera non-icteric NECK/THYROID: no cervical lymphade nopathy, neck supple HEART: S1, S2 normal LUNGS: clear to auscultatio n bilaterally ABDOMEN: normal bowel sounds, no guarding or rigidity, no hepatosplenomegaly, no masses palpable, soft, nontender, nondistended. NEUROLOGIC: alert and oriented SKIN: nonjaundiced, no spi adam angiomata. EXTREMITIES: no edema ORAL CAVITY: mucosa moist
[2024-08-28 13:21] LABS: Appearance Urine Clear; Color Urine Yellow; Glucose Urine UA Negative (Negative); Leukocyte Esterase Urine Moderate (2+) (Negative); Nitrite Urine Negative (Negative); PH 5.5 (5.0-9.0); UMIC TRIGGER UA YES; Urine Blood Negative (Negative); Urine Ketones Trace mg/dL (Negative); Urine Protein Negative (Neg-Trace)
[2024-08-28 13:26] LABS: Bacteria Urine 4+ (None Seen); Hyaline Casts Urine 0-2 /LPF (0-2); RBC Urine 0-2 /HPF (0-2); Squamous Epithelial Cell Urine 0-2 /HPF (0-2); WBC Urine >50 /HPF (0-5)
[2024-08-28 13:57] LABS: Hematocrit 34.1 % (37.0-47.0); Hemoglobin 11.4 g/dl (12.0-16.0); Mean Corpuscular HGB Conc 33.4 g/dl (31.0-35.0); Mean Corpuscular Hemoglobin 32.1 pg (27.0-33.0); Mean Corpuscular Volume 96.1 fL (80.0-98.0); Mean Platelet Volume 9.3 fL (9.4-12.3); Platelet Count 262 X10*3/uL (160-400); Red Blood Count 3.55 X10*6/uL (4.20-5.50); White Blood Count 4.6 X10*3/uL (4.8-10.8)
[2024-08-28 14:40] LABS: Alanine Aminotransferase 7 U/L (0-31); Albumin Level 4.1 g/dL (3.5-5.0); Alkaline Phosphatase 66 U/L (39-117); Anion Gap 7 (12-20); Aspartate Amino Transferase 18 U/L (5-31); Bilirubin Direct 0.1 mg/dL (0.0-0.5); Bilirubin Total 0.4 mg/dL (0.0-1.0); Blood Urea Nitrogen 25 mg/dL (9-16); Calcium 9.7 mg/dL (8.4-10.2); Carbon Dioxide 28 mmol/L (22-29); Chloride 108 mmol/L (96-108); Cholesterol 171 mg/dL (<200); Estimated Glomerular Filt Rate 35; Glucose Random 91 mg/dL (60-115); HDL Cholesterol 65 mg/dL (>40); LDL Cholesterol Calculated 85 mg/dL (<100); Sodium 139 mmol/L (135-145); Thyroid Stimulating Hormone 1.07 uIU/mL (0.32-4.0); Total Protein 6.4 g/dL (6.5-8.0); Triglycerides 107 mg/dL (<150)
== END 2024-08-28 10:33 | disposition home or self-care (01) ==
LOC: HO.HMGCLDS 10:32
PROVIDERS: PCP Internal Medicine; Visit Provider Internal Medicine
DX: M54.6 Pain in thoracic spine (principal); G89.29 Other chronic pain; F32.3 Major depressive disorder, single episode, severe with psychotic features
CPT/HCPCS: 36415; 80048; 80061; 80076; 81001; 84443; 85027

== ENCOUNTER 2024-11-23 09:09 | Outpatient (REF) | payer MEDICARE, MEDICAID, SELFPAY ==
[2024-11-23 10:35] LABS: Anion Gap 12 (12-20); Blood Urea Nitrogen 22 mg/dL (9-16); Carbon Dioxide 27 mmol/L (22-29); Chloride 108 mmol/L (96-108); Estimated Glomerular Filt Rate 37; Potassium 4.1 mmol/L (3.3-5.1); Sodium 143 mmol/L (135-145)
--- OUTSIDE RECORDS SUMMARY | 2024-11-23 10:46 | XMS_ITS | Encounter Summary ---
Author Organization [facility] Address [address] [place] [address] Phone Care Team Providers Care Revenue Tax Specialist Name Role Phone Pio Hamm DO Primary Care Provider [phone]- [phone] Encounter Details Date Type Department Care Team (Late st Contact Info) Description 02/28/2016 Procedure Pass [facility] [address] [place] [address] Social History Tobacco Use Types Packs/Day Years Used Date Smoking Tobacco: Never Comments Unknown Sex and Gender Information Value Date Recorded Sex Assigned at Not on file Legal Sex Female 3:48 PM EST Gender Identity Not on file Sexual Orientation Not on file documented as of this encounter Plan of Treatment Not on file documented as of this encounter Visit Diagnoses Not on filedocumented in this encounter Care Teams Revenue Tax Specialist Relationship Specialty Start Date End Date Pio Hamm DO [address] [place] [address] PCP - General Internal Medicine 01/20/16 documented as of this encounter Additional Source Comments The information contained in this document represents components of the legal health record. It is not the complete legal health record.[facility]
--- OUTSIDE RECORDS SUMMARY | 2024-11-23 10:46 | XMS_ITS | Encounter Summary ---
Author Organization [facility] Address [address] [place] [address] Phone Care Team Providers Care Edger Runner Name Role Phone Pio Hamm DO Primary Care Provider [phone]- [phone] Encounter Details Date Type Department Care Team (Late st Contact Info) Description 02/28/2016 Procedure Pass [facility] [address] [place] [address] Social History Tobacco Use Types Packs/Day Years [...] on filedocumented in this encounter Care Teams Edger Runner Relationship Specialty Start Date End Date Pio Hamm DO [address] [place] [address] PCP - General Internal Medicine 01/20/16 documented as of this encounter Additional Source Comments The information contained in this document represents components of the legal health record. It is not the complete legal health record.[facility]
--- OUTSIDE RECORDS SUMMARY | 2024-11-23 10:46 | XMS_ITS | Patient Health Record ---
Author Organization [facility] Address [address] [place] [address] Care Team Providers Care Cargo Agent Name Role Phone Ulises RASMUSSEN, Diamond Primary Care Provider Jagjit Pérez Unavailable [phone] Allergies Allergen (clinical drug ingredient) Drug/Non Drug [...] W/U Status Risk Notes Problem Esophageal reflux (758025140) Esophageal reflux (K21.9) Active confirmed Problem 697224787 Encounter for screening for malignant neoplasm of colon (Z12.11) Active confirmed Problem 31576295 Weight loss (R63.4) Active confirmed Problem Gastric polyp (11605524) Gastric polyp (K31.7) Active confirmed Problem Gastritis (9816048) Gastritis (K29.70) Active confirmed Problem 50270099 Diarrhea, unspecified type (R19.7) Active confirmed Problem 46061170 Irritable bowel syndrome with both constipation and diarrhea (K58.2) Active confirmed Problem Diverticulosis of colon (859652678) Diverticulosis of colon (K57.30) Active confirmed Problem 43974125 Gastric adenoma (D13.1) Active confirmed Problem 359237408 Gastroesophageal reflux disease, unspecified whether esophagitis present (K21.9) Active confirmed Problem 13760313 Nausea and vomiting, unspecified vomiting type (R11.2) Active confirmed Vital Signs Temperature 97.5 degrees Fahrenheit 12/18/2023 Blood pressure diastolic 00 mm Hg 12/18/2023 Height 66 in 12/18/2023 Blood pressure systolic 000 mm Hg 12/18/2023 Weight 124 lb 6 oz lbs 12/18/2023 BMI 20.07 kg/m2 12/18/2023 Encounters Encounter Location Date Provider Diagnosis [facility] [address] [place] [address] 12/18/2023 Jagjit Son Irritable bowel synd damian [...] End Date [employer] (No Referral) [address] [address] [place] [id number] HE CRAIG Self - patient is the insured MEDICAID [facility] [address] [place] [address] [id number] HE CRAIG Self - patient is the insured Medical (General) History Medical History History ICD Code COPD/Asthma IBS PTSD/Depression Denies AR,DM,CVA,renal disease GERD Upper endo in 05/2011 with [...]
--- OUTSIDE RECORDS SUMMARY | 2024-11-23 10:46 | XMS_ITS | Clinical Summary ---
Author Organization [facility] Address [address] [place] [address] Care Team Providers Care Maintenance Superintendent Name Role Phone Christi Helms MD Primary Care Provider [phone] Allergies Active Allergy Reactions Criticality Noted Date Comments Albuterol Other (See Comments) 08/27/2019 jitteriness Metoclopramide Unknown/Patient and Family Unable to Define Medium 08/27/2019 Medications acetaminophen (TYLENOL) 500 MG tablet Take 2 [...] of Binge Drinking Not on file 08/09 Comments Unknown Sex and Gender Information Value Date Recorded Sex Assigned at Not on file Legal Sex Female 6:26 PM EST Gender Identity Not on file Sexual Orientation Not on file Last Filed Vital Signs Vital Sign Reading Time Taken Comments Blood Pressure 140/66 08/27/2019 9:12 PM EDT Pulse 68 08/27/2019 9:12 PM EDT Temperature 36.4 C (97.6 F) 08/27/2019 9:12 PM EDT Respiratory Rate 16 08/27/2019 9:12 PM EDT Oxygen Saturation 99% 08/27/2019 9:12 PM EDT Inhaled Oxygen Concentration - - Weight - - Height - - Body Mass Index - - Plan of Treatment Health Maintenance Due Date Last Done Comments Advance Care Planning 1950 Hepatitis C Virus Screening 1950 DTaP/Tdap/Td Vaccines (1 - Tdap) 08/03/1970 Mammogram 1991 Colonoscopy 08/03/1996 Pneumococcal Vaccines 50+ (1 of 1 - PCV) 08/03/2001 Zoster (Shingles) Vaccine (1 of 2) 08/03/2001 DXA Bone Density (Females,Ag es 65 and older) 08/03/2016 Influenza Vaccine 10/09/2024 COVID-19 Vaccine ( - 2023-2 5 season) 2024 RSV Vaccine 60 years and old er and Patients (1 - 1-dose 75+ series) 08/03/2026 Hepatitis B Vaccines Aged Out No long er eligible based on patient's age to complete this topic Insurance motify [facility] TPL (AUTO/LIABILITY) MEDICARE PART A & B [facility] Care Teams Maintenance Superintendent Relationship Specialty Start Date End Date Christi Helms MD [address] [place] [address] PCP - General 08/27/19
--- OUTSIDE RECORDS SUMMARY | 2024-11-23 10:46 | XMS_ITS | Encounter Summary ---
Author Organization [facility] Address [address] [place] [address] Phone Care Team Providers Care Vessel Ordinary Seaman Name Role Phone Pio Hamm DO Primary Care Provider [phone] Encounter Details Date Type Department Care Team (Late st Contact Info) Description 02/28/2016 Procedure Pass [facility] [address] [place] [address] Social History Tobacco Use Types Packs/Day Years [...] on filedocumented in this encounter Care Teams Vessel Ordinary Seaman Relationship Specialty Start Date End Date Pio Hamm DO [address] [place] [address] PCP - General Internal Medicine 01/20/16 documented as of this encounter Additional Source Comments The information contained in this document represents components of the legal health record. It is not the complete legal health record.[facility]
--- OUTSIDE RECORDS SUMMARY | 2024-11-23 10:46 | XMS_ITS | Clinical Summary ---
Author Organization [facility] Address [address] [place] [address] Phone Care Team Providers Care Deli Bakery Clerk Name Role Phone Christi Helms MD Primary Care Provider [phone] Allergies Active Allergy Reactions Criticality Noted Date Comments Albuterol Other (see comments) 02/23/2016 Caused mouth sores. jitteriness [place] Other (see comments) 02/23/2016 Mouth breaks out. [...] Comments Breast Cancer Screening 1950 Pneumococcal Vaccine: 50+ Ye ars (1 of 2 - PCV) 08/03/1970 Colorectal Cancer Screening: Annual FOBT 08/03/2000 Colorectal Cancer Screening: Colonoscopy 08/03/2000 Colorectal Cancer Screening: Sigmoidoscopy 08/03/2000 Influenza Vaccine (#1) 2024 Hepatitis B Vaccine Aged Out No longe r eligible based on patient's age to complete this topic Insurance [facility] [place] [id number] Medicaid [place] [facility] Adv PPO ([id number]) Care Teams Deli Bakery Clerk Relationship Specialty Start Date End Date Christi Helms MD [address] [place] [address] PCP - General 03/21/20
--- OUTSIDE RECORDS SUMMARY | 2024-11-23 10:46 | XMS_ITS | Clinical Summary ---
Author Organization [facility] Address [address] [place] [address] Phone Care Team Providers Care Document Controller Name Role Phone Pio Hamm Primary Care Provider [phone] Allergies Active Allergy Reactions Criticality Noted Date Comments Albuterol 02/23/2016 Caused mouth sores. [place] And Derivatives Other (See Comments) Mouth breaks out. Reglan (Metoclopramide Hcl) Other (See Comments) 02/23/2016 Uncontrolled shaking. Tomato (Solanum Lycopersicum) High 02/23/2016 Epi-pen needed. Medications PARoxetine (PAXIL) 30 MG tablet Take 30 mg by mouth every morning. Active buPROPion (WELLBUTRIN XL) 300 MG 24 hr tablet Take 300 mg by mouth daily. Active clonazePAM (KLONOPIN) 0.5 MG tablet Take 0.5 mg by mouth 4 (four) times a day. Active topiramate (TOPAMAX) 50 MG tablet Take 50 mg by mouth nightly. Active ipratropium (ATROVENT HFA) 17 mcg/actuation inhaler Inhale 2 puffs into the lungs as needed for wheezing. Active traZODone (DESYREL) 50 MG tablet Take 50 mg by mouth as needed. Reported on 05/29/2016 Active carbidopa-levod opa CR (SINEMET CR) 25-100 mg per tablet Take 1 tablet by mouth 3 (three) times a day. Active Active Problems Problem Noted Date Diagnosed Date Numbness 02/24/2016 Family History Medical History Relation Comments Hypertension Sister Relation Status Comments Sister Social History Tobacco Use Types Packs/Day Years Used Date Smoking Tobacco: Never Education Answer Date Recorded Are you interested in more education? Not on bob e 07/06/2022 Are you concerned about learning? Not on file 07/06/2022 No 07/06/2022 No 07/06/2022 Digital Access Answer Date Recorded No 08/05/2022 No 08/05/2022 No 08/05/2022 Reliable internet access at home? Not on file 08/05/2022 Device with a working camera? Not on file Comments Unknown Sex and Gender Information Value Date Recorded Sex Assigned at Not on file Legal Sex Female 3:48 PM EST Gender Identity Not on file Sexual Orientation Not on file Last Filed Vital Signs Vital Sign Reading Time Taken Comments Blood Pressure 120/80 05/29/2016 12:31 PM EDT Pulse 72 05/29/2016 12:31 PM EDT Temperature 36.6 C (97.9 F) 02/23/2016 3:22 PM EST Respiratory Rate 16 02/23/2016 3:22 PM EST Oxygen Saturation 100% 02/23/2016 3:22 PM EST Inhaled Oxygen Concentration - - Weight 78.2 kg (172 lb 6.4 oz) 02/23/2016 3:22 P M EST Height 167.6 cm (5' 6 ) 02/23/2016 3:22 PM EST Body Mass Index 27.83 02/23/2016 3:22 PM EST Plan of Treatment Health Maintenance Due Date Last Done Comments LIPID PANEL 1950 DEPRESSION SCREENING 1962 HEPATITIS C SCREENING 08/03/1969 MAMMOGRAM 1991 COLOGUARD 08/03/1996 COLONOSCOPY 08/03/1996 COLORECTAL CANCER SCREENING 08/03/1996 FIT TEST 08/03/1996 FOBT 08/03/1996 SIGMOIDOSCOPY 08/03/1996 VIRTUAL COLONOSCOPY 08/03/1996 OSTEOPOROSIS SCREENING INITI AL (ONE-TIME) 08/03/2016 ZOSTER VACCINES (2 of 2) 01/27/2020 12/02/2019 PNEUMOCOCCAL VACCINES (50+ years) (2 of 2 - PPSV23) 12/01/2020 12/02/2019 INFLUENZA VACCINE (#1) 2024 0, 02/27/2017 COVID-19 VACCINE (2 - 2024-2 6 season) 2024 05/04/2020 RSV VACCINE (1 - 1-dose 75+ series) 08/03/2026 Adult Td,Tdap Booster 03/01/2027 03/01/2017 SMOKING STATUS SCREENING (On ce After 26 Yrs) Completed 02/24/2016 HEPATITIS A VACCINES Aged Out No long er eligible based on patient's age to complete this topic HIB VACCINES Aged Out No longer eligi ble based on patient's age to complete this topic MENINGOCOCCAL VACCINES (ACWY) Aged Out No longer eligible based on patient's age to complete this topic MENINGOCOCCAL VACCINES (B) Aged Out N o longer eligible based on patient's age to complete this topic Medical Devices Not on file Insurance MEDICARE PART A & B [facility] MEDICARE PART A & B [place] MED[place] PART [facility] & [facility] [place] PART [place] & [place] & [place] [facility] [place] [facility] Care Teams Document Controller Relationship Specialty Start Date End Date Pio Hamm DO [address] [place] [address] PCP - General Internal Medicine 01/20/16 Additional Source Comments The information contained in this document represents components of the legal health record. It is not the complete legal health record.[facility]
== END 2024-11-23 09:10 | disposition home or self-care (01) ==
LOC: HO.HMGCLDS 09:09
PROVIDERS: PCP Internal Medicine; Visit Provider Internal Medicine Nephrology
DX: N18.31 Chronic kidney disease, stage 3a (principal); Q61.3 Polycystic kidney, unspecified; N25.81 Secondary hyperparathyroidism of renal origin
CPT/HCPCS: 36415; 80051; 82565; 84520

== ENCOUNTER 2024-11-25 13:42 | Outpatient (AMB) | payer MEDICARE, MEDICAID, SELFPAY ==
--- NOTE | 2024-11-25 13:48 | HO.NEPHOV_ITS ---
Vital Signs 11/25/24 13:54 Height 5 ft 6 in Weight 140 lb 6 oz BMI 22.7 BP 138/60 Blood Pressure Location Rt brachial Position Sitting Pulse 64 Pulse Source Pulse Oximeter Pulse Oximetry (%) 98 Oxygen Delivery Method Room Air Intake Visit Reasons: CKD-LVM Desk Assistant Required: No Accompanied by: Self / Same As Patient Allergies tomato (TOMATO) Allergy (Severe, Verified 11/25/24 13:54) ANAPHYLAXIS Sulfa (Sulfonamide Antibiotics) Allergy (Intermediate, Verified 11/25/24 13:54) TRAVIS davis albuterol Allergy (Unknown, Verified 11/25/24 13:54) Unknown metoclopramide (Reglan) Allergy (Unknown, Verified 11/25/24 13:54) Unknown quetiapine (From Seroquel) Adverse Reaction (Severe, Verified 11/25/24 13:54) Hallucinations HPI Comments Details: Lien was seen in the office in follow-up of her chronic kidney disease due to polycystic kidney disease and nephrolithiasis. She has H/O major depressive disorder needing ECT. She denies any flank pain, night sweats, weight loss, hematuria, pedal edema, headache, visual disturbances, chest pain, shortness of breath, nausea, vomiting or any other urinary symptoms. Her tremors are well controlled with the current dose of carbidopa/levodopa. She tries to maintain good hydration and avoids nonsteroidal anti-inflammatory medications. Her blood pressure has been at goal. She does not get recurrent UTI's. She gets a lot of restless legs PFSH Medical History Low back pain Back pain Osteoporosis Restless legs syndrome (RLS) Parkinson's disease without dyskinesia or fluctuating manifestations History of uterine cancer Parkinson's disease without dyskinesia Sleep disorder Anemia CKD (chronic kidney disease), stage III PTSD (post-traumatic stress disorder) Hyperparathyroidism Family history of malignant neoplasm of endometrium Polycystic kidney disease Multinodular thyroid Back pain GERD (gastroesophageal reflux disease) Chronic fatigue IBS (irritable bowel syndrome) Fibromyalgia COPD (chronic obstructive pulmonary disease) Surgical History Hx laparoscopic cholecystectomy History of esophagogastroduodenoscopy (EGD) H/O colonoscopy (~06/23/21) History of left breast biopsy Hx of cholecystectomy History of sinus surgery History of carpal tunnel syndrome History of total abdominal hysterectomy Family History Father COPD (chronic obstructive pulmonary disease) Mother Arteriosclerosis Breast cancer, Onset Age: 80 Sister Diabetes mellitus Breast cancer, Onset Age: 70 Brother Bone cancer History of pituitary cancer Social History Household Members: None Housing: House Do you presently have visiting nurse or other home services: No Alcohol intake: current Alcohol intake frequency: does not drink Patient Tobacco Use Status: Never used Tobacco e-Cigarette/Vaping Use: Never Used service: No Current occupational status: retired Sexual orientation: Straight/Heterosexual Cognitive needs: Yes (cane ) Hearing needs: No Vision needs: Yes Review of Systems Const All systems reviewed & are unremarkable except as noted in HPI and below Physical Exam Const General: comfortable and no acute distress Orientation/consciousness: patient oriented x3 HEENT Head: Yes normocephalic Mouth: Normal oral and palatal mucosa present Eyes EOM: EOMs intact bilaterally Neck Neck: Yes supple Resp Auscultation: clear to auscultation bilaterally Cardio Jugular venous distension: no JVD Rate: regular rate GI Palpation (GI): Soft to palpation Auscultation: normal bowel sounds General: Yes no CVA tenderness Back/Spine/Pelvis Back: no CVA tenderness Skin General skin exam: no rashes or lesions noted Neuro General: patient oriented x3 and moves all extremities Extrem General: Yes no pedal edema Results Reviewed Nephrology Results: Hgb, (12.0-16.0) 11.4 g/dl L 08/28/24 WBC, (4.8-10.8) 4.6 X10*3/uL L 08/28/24 Plt Count, (160-400) 262 X10*3/uL 08/28/24 Sodium, (135-145) 143 mmol/L 11/23/24 Potassium, (3.3-5.1) 4.1 mmol/L 11/23/24 Chloride, (96-108) 108 mmol/L 11/23/24 Carbon Dioxide, (22-29) 27 mmol/L 11/23/24 BUN, (9-16) 22 mg/dL H 11/23/24 Creatinine, (0.5-1.4) 1.39 mg/dL 11/23/24 Calcium, (8.4-10.2) 9.7 mg/dL 08/28/24 Urine Protein, (Neg-Trace) Negative mg/dL 08/28/24 Renal US 02/26/23 Assessment & Plan Assessment & Plan (1) Secondary hyperparathyroidism (of renal origin): Code(s): N25.81 - Secondary hyperparathyroidism of renal origin Category: Medical (2) Polycystic kidney disease: Code(s): Q61.3 - Polycystic kidney, unspecified Category: Medical (3) CKD (chronic kidney disease), stage III: Code(s): N18.30 - Chronic kidney disease, stage 3 unspecified Category: Medical Qualifiers: Chronic kidney disease stage 3 subtype: stage 3a (GFR 45-59) Qualified Code(s): N18.31 - Chronic kidney disease, stage 3a Keith Emmanuel has CKD from polycystic kidney disease. She has history of microscopic hematuria and nephrolithiasis. She has no history of proteinuria. Her blood pressure has been at goal. She has no flank pain, pedal edema. She does not take any nonsteroidal anti-inflammatory medications. She may need MRI to assess the status of renal cyst. She has no history of any CVA in the family. I started her on Farxiga 5 mg daily. She should maintain good hydration. I did not make any other medication changes today. All questions answered. Follow-up given. Orders: Orders Electrolytes 3 Months N18.31 - Chronic kidney disease, stage 3a, N25.81 - Secondary hyperparathyroidism of renal origin, Q61.3 - Polycystic kidney, unspecified Calcium 3 Months N18.31 - Chronic kidney disease, stage 3a, N25.81 - Secondary hyperparathyroidism of renal origin, Q61.3 - Polycystic kidney, unspecified Phosphorus 3 Months N18.31 - Chronic kidney disease, stage 3a, N25.81 - Secondary hyperparathyroidism of renal origin, Q61.3 - Polycystic kidney, unsp ecified Vitamin D 25-OH Total 3 Months N18.31 - Chronic kidney disease, stage 3a, N25.81 - Secondary hyperparathyroidism of renal origin, Q61.3 - Polycystic kidney, unspecified Hemoglobin A1c 3 Months N18.31 - Chronic kidney disease, stage 3a, N25.81 - Secondary hyperparathyroidism of renal origin, Q61.3 - Polycystic kidney, unspecified Blood Urea Nitrogen 3 Months N18.31 - Chronic kidney disease, stage 3a, N25.81 - Secondary hyperparathyroidism of renal origin, Q61.3 - Polycystic kidney, unspecified Creatinine 3 Months N18.31 - Chronic kidney disease, stage 3a, N25.81 - Secondary hyperparathyroidism of renal origin, Q61.3 - Polycystic kidney, unspecified Parathyroid Hormone Intact 3 Months N18.31 - Chronic kidney disease, stage 3a, N25.81 - Secondary hyperparathyroidism of renal origin, Q61.3 - Polycystic kidney, unspecified Medications: New Farxiga (dapagliflozin propanediol) 5 mg PO DAILY 100 tabs 3RF 100 days NS Coding Level of Care Code Est Pt Level 4 (02013) Diagnoses Secondary hyperparathyroidism (of renal origin) N25.81 Polycystic kidney disease Q61.3 Stage 3a chronic kidney disease N18.31 Chronic kidney disease stage 3 subtype: stage 3a (GFR 45-59)
[2024-11-25 13:54] VITALS: BP 138/60; PULSE 64; O2SAT 98; BMI 22.7
--- OUTSIDE RECORDS SUMMARY | 2024-11-25 17:27 | XMS_ITS | Encounter Summary ---
Author Organization [facility] Address [address] [place] [address] Phone Care Team Providers Care Painter Drum Name Role Phone Pio Hamm DO Primary Care Provider [phone] Encounter Details Date Type Department Care Team (Late st Contact Info) Description 02/28/2016 Procedure Pass [facility] [address] [place] [address] Social History Tobacco Use Types Packs/Day Years [...] on filedocumented in this encounter Care Teams Painter Drum Relationship Specialty Start Date End Date Pio Hamm DO [address] [place] [address] PCP - General Internal Medicine 01/20/16 documented as of this encounter Additional Source Comments The information contained in this document represents components of the legal health record. It is not the complete legal health record.[facility]
--- OUTSIDE RECORDS SUMMARY | 2024-11-25 17:27 | XMS_ITS | Clinical Summary ---
Author Organization [facility] Address [address] [place] [address] Care Team Providers Care Cyber Defense Analyst Name Role Phone Christi Helms MD Primary Care Provider [phone] Allergies Active Allergy Reactions Criticality Noted Date [...] patient's age to complete this topic Insurance [facility] TPL (AUTO/LIABILITY) MEDICARE PART A & B [facility] Care Teams Cyber Defense Analyst Relationship Specialty Start Date End Date Christi Helms MD [address] [place] [address] PCP - General 08/27/19
--- OUTSIDE RECORDS SUMMARY | 2024-11-25 17:27 | XMS_ITS | Clinical Summary ---
Author Organization [facility] Address [address] [place] [address] Phone Care Team Providers Care Procurement Professional Name Role Phone Christi Helms MD Primary Care Provider [phone] Allergies Active Allergy Reactions Criticality Noted Date Comments Albuterol Other (see comments) 02/23/2016 Caused mouth sores. jitteriness [place] Other (see comments) 02/23/2016 Mouth breaks out. [...] to complete this topic Insurance Medicaid [place] [id number] Medicaid [place] [facility] Adv PPO ([id number]) Care Teams Procurement Professional Relationship Specialty Start Date End Date Christi Helms MD [address] [place] [address] PCP - General 03/21/20
--- OUTSIDE RECORDS SUMMARY | 2024-11-25 17:27 | XMS_ITS | Clinical Summary ---
Author Organization [facility] Address [address] [facility] [address] [place] [address] Phone Care Team Providers Care Video Conference Specialist Name Role Phone Pio Hamm Primary Care Provider +1- [phone] Allergies Active Allergy Reactions Criticality Noted Date Comments Albuterol 02/23/2016 Caused mouth sores. [place] And Derivatives Other (See Comments) Mouth breaks [...] file Insurance MEDICARE PART A & B [facility] MEDICARE PART A & B [place] [facility] [place] A & [place] [facility] Care Teams Video Conference Specialist Relationship Specialty Start Date End Date Pio Hamm DO [address] [place] [address] PCP - General Internal Medicine 01/20/16 Additional Source Comments The information contained in this document represents components of the legal health record. It is not the complete legal health record.[facility]
--- OUTSIDE RECORDS SUMMARY | 2024-11-25 17:27 | XMS_ITS | Encounter Summary ---
Author Organization [facility] Address [address] [facility] [place] [address] Phone Care Team Providers Care Store Worker Name Role Phone Pio Hamm DO Primary Care Provider +1- [phone] Encounter Details Date Type Department Care Team (Late st Contact Info) Description 02/28/2016 Procedure Pass [facility] [address] [place] [address] Social History Tobacco Use Types Packs/Day Years [...] on filedocumented in this encounter Care Teams Store Worker Relationship Specialty Start Date End Date Pio Hamm DO [address] [place] [address] PCP - General Internal Medicine 01/20/16 documented as of this encounter Additional Source Comments The information contained in this document represents components of the legal health record. It is not the complete legal health record.[facility]
--- OUTSIDE RECORDS SUMMARY | 2024-11-25 17:27 | XMS_ITS | Encounter Summary ---
Author Organization [facility] Address [address] [facility] [place] [address] Phone Care Team Providers Care Quality Compliance Consultant Name Role Phone Pio Hamm DO Primary Care Provider +1- [phone] Encounter Details Date Type Department Care Team (Late st Contact Info) Description 02/28/2016 Procedure Pass [facility] [address] [place] [address] Social History Tobacco Use Types Packs/Day Years [...] on filedocumented in this encounter Care Teams Quality Compliance Consultant Relationship Specialty Start Date End Date Pio Hamm DO [address] [place] [address] PCP - General Internal Medicine 01/20/16 documented as of this encounter Additional Source Comments The information contained in this document represents components of the legal health record. It is not the complete legal health record.[facility]
--- OUTSIDE RECORDS SUMMARY | 2024-11-25 17:27 | XMS_ITS | Patient Health Record ---
Author Organization [facility] Address [address] [place] [address] Care Team Providers Care Disability Services Coordinator Name Role Phone Ulises RASMUSSEN, Diamond Primary Care Provider Jagjit Pérez Unavailable [phone] Allergies Allergen (clinical drug ingredient) Drug/Non Drug [...] W/U Status Risk Notes Problem Esophageal reflux (113782288) Esophageal reflux (K21.9) Active confirmed Problem 514725798 Encounter for screening for malignant neoplasm of colon (Z12.11) Active confirmed Problem 94503618 Weight loss (R63.4) Active confirmed Problem Gastric polyp (01563357) Gastric polyp (K31.7) Active confirmed Problem Gastritis (7457430) Gastritis (K29.70) Active confirmed Problem 38435813 Diarrhea, unspecified type (R19.7) Active confirmed Problem 99163917 Irritable bowel syndrome with both constipation and diarrhea (K58.2) Active confirmed Problem Diverticulosis of colon (613337092) Diverticulosis of colon (K57.30) Active confirmed Problem 62654112 Gastric adenoma (D13.1) Active confirmed Problem 926314723 Gastroesophageal reflux disease, unspecified whether esophagitis present (K21.9) Active confirmed Problem 80347128 Nausea and vomiting, unspecified vomiting type (R11.2) Active confirmed Vital Signs Temperature 97.5 degrees Fahrenheit 12/18/2023 Blood pressure diastolic 00 mm Hg 12/18/2023 Height 66 in 12/18/2023 Blood pressure systolic 000 mm Hg 12/18/2023 Weight 124 lb 6 oz lbs 12/18/2023 BMI 20.07 kg/m2 12/18/2023 Encounters Encounter Location Date Provider Diagnosis [facility] [address] [facility] [address] [place] [address] 12/18/2023 Jagjit Son Irritable bowel synd damian [...] End Date Aetna (No Referral) [address] [address] [place] [address] [id number] HE CRAIG Self - patient is the insured MEDICAID OF [facility] [address] [place] [address] [id number] HE CRAIG Self - patient is the [...]
== END 2024-11-25 14:09 | disposition home or self-care (01) ==
LOC: HO.HKA 13:43
PROVIDERS: PCP Internal Medicine; Visit Provider Internal Medicine Nephrology
DX: N25.81 Secondary hyperparathyroidism of renal origin (principal); Q61.3 Polycystic kidney, unspecified; N18.31 Chronic kidney disease, stage 3a
CPT/HCPCS: 99214

== ENCOUNTER → 2024-11-25 13:42 | Outpatient (BNVA) | payer MEDICARE, MEDICAID, SELFPAY | PROVIDERS: PCP Internal Medicine; Visit Provider Internal Medicine Nephrology | DX: N18.31 Chronic kidney disease, stage 3a (principal); N25.81 Secondary hyperparathyroidism of renal origin; Q61.3 Polycystic kidney, unspecified | CPT/HCPCS: 99212 ==

== ENCOUNTER 2024-12-04 12:50 | Outpatient (AMB) | payer MEDICARE, MEDICAID, SELFPAY ==
--- NOTE | 2024-12-04 12:52 | A.OFFVIS_ITS ---
Vital Signs 12/04/24 12:55 Height 5 ft 6 in Weight 141 lb 1.533 oz BMI 22.8 BP 110/58 L Blood Pressure Location Rt brachial Position Sitting Pulse 72 Pulse Source Pulse Oximeter Pulse Oximetry (%) 98 Oxygen Delivery Method Room Air Intake Visit Reasons: Age-related osteoporosis without current pathologi Intake Note: Patient presents today for Age-related Osteoporosis without current pathologic: Last seen by DR. Jagjit Walsh MD 2023 Carpentry Teacher Required: No Accompanied by: Self / Same As Patient Allergies tomato (TOMATO) Allergy (Severe, Verified 11/25/24 13:54) ANAPHYLAXIS Sulfa (Sulfonamide Antibiotics) Allergy (Intermediate, Verified 11/25/24 13:54) TRAVIS davis albuterol Allergy (Unknown, Verified 11/25/24 13:54) Unknown metoclopramide (Reglan) Allergy (Unknown, Verified 11/25/24 13:54) Unknown quetiapine (From Seroquel) Adverse Reaction (Severe, Verified 11/25/24 13:54) Hallucinations Medication List - Last Reconciled 12/04/24 by Aaliyahet Suha Ennis MD albuterol sulfate 90 mcg/actuation 2 puffs inhalation Q6H PRN bupropion HCl XL 300 mg PO QAM carbidopa-levodopa 25-100 mg 1.5 tabs PO QID 90 days cyclobenzaprine 10 mg PO BEDTIME famotidine 40 mg PO QAM Farxiga (dapagliflozin propanediol) 5 mg PO DAILY 100 days NS meloxicam 15 mg PO DAILY multivitamin 1 tab PO DAILY paroxetine HCl 40 mg PO DAILY trazodone 25 - 50 mg (0.5 - 1 x 50 mg) PO BEDTIME MRX1 PRN 30 days HPI Comments Details: 74 years old female polycystic kidney disease, restless leg syndrome, Parkinson disease, COPD it is stage III, PTSD, multinodular goiter, seen for follow-up evaluation of 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 Patient had previously seen by Dr. Walsh on September 2024. This is my 1st time seeing the patient. Since last visit patient does not report any falls or fractures. She is currently not taking any calcium or vitamin-D supplementation. She eats cheese daily as well as broccoli, she does not drink meal. She is not taking steroids, PPIs or lithium. She was previously advised to see Endocrine surgery for evaluation of primary hyperparathyroidism, the patient was never contacted by the doctor and she forgot about it. She also forgot about obtaining blood work. Review of systems - Gastrointestinal: Reports dysphagia, particularly with solid foods, worsening over the past year. - Musculoskeletal: Denies recent fractures or falls. - Allergic/Immunologic: Reports increased allergy symptoms consistent with seasonal allergic rhinitis. Physical exam General: Well appearing. NAD. Neck/Thyroid: Thyroid not enlarged, no palpable nodules. Eyes: No conjunctival injection CV: RRR, no murmur. No edema. Resp:Lungs clear to auscultation bilaterally Abdomen: Soft, nontender. nondistended Extremities/Neuro: No weakness or tremor of outstretched hands Laboratory Tests 09/26/23 04/20/24 08/28/24 08:00 13:57 10:56 Creatinine 1.45 H Estimated GFR 35 Calcium 9.7 TSH 1.07 PTH Intact 97.3 H Ur Calcium 24 Hr 76 Calcium/Creat 24 Hr 104 11/23/24 09:20 Creatinine 1.39 Estimated GFR 37 Calcium TSH PTH Intact Ur Calcium 24 Hr Calcium/Creat 24 Hr Imaging DEXA scan 08/17/2023 FINDINGS: LEFT FEMUR, NECK: Current: BMD 0.662 g/cm2, Z-score -1.5, T-score -2.7, osteoporosis. Baseline: BMD 0.836 g/cm2. LEFT FEMUR, TOTAL: Current: BMD 0.597 g/cm2, Z-score -2.3, T-score -3.3, osteoporosis, 29.9% decrease from baseline (<5% change is not significant). Baseline: BMD 0.852 g/cm2. AP SPINE L1-L4: Current: BMD 0.795 g/cm2, Z-score -2.4, T-score -3.2, osteoporosis, 20.1% decrease from baseline (<5% change is not significant). Baseline: BMD 0.995 g/cm2. LEFT FOREARM RADIUS 33%: BMD 0.622 g/cm2, Z-score -0.9, T-score -2.9, osteoporosis. PFSH Medical History Low back pain Back pain Osteoporosis Restless legs syndrome (RLS) Parkinson's disease without dyskinesia or fluctuating manifestations History of uterine cancer Parkinson's disease without dyskinesia Sleep disorder Anemia CKD (chronic kidney disease), stage III PTSD (post-traumatic stress disorder) Hyperparathyroidism Family history of malignant neoplasm of endometrium Polycystic kidney disease Multinodular thyroid Back pain GERD (gastroesophageal reflux disease) Chronic fatigue IBS (irritable bowel syndrome) Fibromyalgia COPD (chronic obstructive pulmonary disease) Surgical History Hx laparoscopic cholecystectomy History of esophagogastroduodenoscopy (EGD) H/O colonoscopy (~06/23/21) History of left breast biopsy Hx of cholecystectomy History of sinus surgery History of carpal tunnel syndrome History of total abdominal hysterectomy Family History Father COPD (chronic obstructive pulmonary disease) Mother Arteriosclerosis Breast cancer, Onset Age: 80 Sister Diabetes mellitus Breast cancer, Onset Age: 70 Brother Bone cancer History of pituitary cancer Social History Household Members: None Housing: House Do you presently have visiting nurse or other home services: No Alcohol intake: current Alcohol intake frequency: does not drink Patient Tobacco Use Status: Never used Tobacco e-Cigarette/Vaping Use: Never Used service: No Current occupational status: retired Sexual orientation: Straight/Heterosexual Cognitive needs: Yes (cane ) Hearing needs: No Vision needs: Yes Physical Exam Vital Signs: BMI result Body Mass Index 22.8 Assessment & Plan Assessment & Plan (1) Hyperparathyroidism: Code(s): E21.3 - Hyperparathyroidism, unspecified Category: Medical (2) Osteoporosis: Code(s): M81.0 - Age-related osteoporosis without current pathological fracture Category: Medical Qualifiers: Osteoporosis type: age-related Presence of current pathological fracture: without current pathological fracture Qualified Code(s): M81.0 - Age- related osteoporosis without current pathological fracture Plan 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 Alternatively, patient could be treated with Fosamax or Prolia, there has been previously discussed by Dr. Walsh in the previous visit but I emphasized this. Patient not currently taking vitamin-D or calcium supplementations, but is well known that patients with vitamin-D deficiency or insufficient calcium intake can worsen primary hyperparathyroidism, hence taking supplement is advised. Unfortunately patient has not been able to see the surgeon, nor she have done the blood work that was ordered in the last visit. Recommendations We will place referral for Endocrine surgeon again- Domingo Fam- We will place orders to obtain labs: BMP, vitamin-D, PTH, magnesium, 24 hours urine calcium We will place an order for thyroid ultrasound to evaluate for parathyroid Advised the patient to take calcium to recommended dose of 1200 mg daily, preferentially from food Advised the patient to take vitamin-D 1000 IU daily Orders: Orders Basic Metabolic Panel Today E21.3 - Hyperparathyroidism, unspecified, M81.0 - Age-related osteoporosis without current pathological fracture Creatinine, 24 Hr Group Today E21.3 - Hyperparathyroidism, unspecified, M81.0 - Age-related osteoporosis without current pathological fracture Magnesium Today E21.3 - Hyperparathyroidism, unspecified, M81.0 - Age-related osteoporosis without current pathological fracture Vitamin D 25-OH Total Today E21.3 - Hyperparathyroidism, unspecified, M81.0 - Age-related osteoporosis without current pathological fracture Parathyroid Hormone Intact Today E21.3 - Hyperparathyroidism, unspecified, M81.0 - Age-related osteoporosis without current pathological fracture Calcium, 24 Hr Ur Today E21.3 - Hyperparathyroidism, unspecified, M81.0 - Age- related osteoporosis without current pathological fracture US thyroid Today E21.3 - Hyperparathyroidism, unspecified Referrals General Surgery Referral E21.3 - Hyperparathyroidism, unspecified, M81.0 - Age-related osteoporosis without current pathological fracture Coding Level of Care Code Est Pt Level 4 (26181) Diagnoses Hyperparathyroidism E21.3 Age-related osteoporosis without current pathological fracture M81.0 Osteoporosis type: age-related Presence of current pathological fracture: without current pathological fracture Time Spent (min) 45 Comment Time spent on review of previous records, history, exam/plan and patient education.
[2024-12-04 12:55] VITALS: BP 110/58; PULSE 72; O2SAT 98; BMI 22.8
--- OUTSIDE RECORDS SUMMARY | 2024-12-04 14:13 | XMS_ITS | Clinical Summary ---
Author Organization [facility] Address [address] [place] [address] Care Team Providers Care Refinish Technician Name Role Phone Christi Helms MD Primary Care Provider [phone] Allergies Active Allergy Reactions Criticality Noted Date [...] patient's age to complete this topic Insurance [employer] [facility] T[facility] (AUTO/LIABILITY) MEDICARE PART A & B [facility] Care Teams Refinish Technician Relationship Specialty Start Date End Date Christi Helms MD [address] [place] [address] PCP - General 08/27/19
--- OUTSIDE RECORDS SUMMARY | 2024-12-04 14:13 | XMS_ITS | Clinical Summary ---
Author Organization [facility] Address [address] [facility] [address] [place] [address] Phone Care Team Providers Care Ballistics Laboratory Gunsmith Name Role Phone Pio Hamm Primary Care Provider +1- [phone] Allergies Active Allergy Reactions Criticality Noted Date Comments Albuterol 02/23/2016 Caused mouth sores. [place] And Derivatives Other (See Comments) Mouth breaks [...] file Insurance MEDICARE PART A & B [facility] MEDICARE PART A & B [place] A & B [facility] & [place] A [place] A & B Member Subscriber Plan / Payer (Ef fective 1995-) Name:Lien Jerry Member ID:[id number] Relation to Subscriber:Self Name:Lien Jerry Subscriber ID:[id number] Payer ID:[id number] Group ID:Not on file Type:Medicare Address: [facility] [employer] [facility] [employer] [facility] [address] [place] [phone] [place] MED[place] PART A & B [facility] Care Teams Ballistics Laboratory Gunsmith Relationship Specialty Start Date End Date Pio Hamm DO [address] [place] [address] PCP - General Internal Medicine 01/20/16 Additional Source Comments The information contained in this document represents components of the legal health record. It is not the complete legal health record.[facility]
--- OUTSIDE RECORDS SUMMARY | 2024-12-04 14:13 | XMS_ITS | Encounter Summary ---
Author Organization [facility] Address [address] [facility] [place] [address] Phone Care Team Providers Care Washer Repairman Name Role Phone Pio Hamm DO Primary Care Provider +1- [phone] Encounter Details Date Type Department Care Team (Late st Contact Info) Description 02/28/2016 Procedure Pass [facility] [address] [place] [address] Social History Tobacco Use Types Packs/Day Years [...] on filedocumented in this encounter Care Teams Washer Repairman Relationship Specialty Start Date End Date Pio Hamm DO [address] [place] [address] PCP - General Internal Medicine 01/20/16 documented as of this encounter Additional Source Comments The information contained in this document represents components of the legal health record. It is not the complete legal health record.[facility]
--- OUTSIDE RECORDS SUMMARY | 2024-12-04 14:13 | XMS_ITS | Encounter Summary ---
Author Organization [facility] Address [address] [place] [address] Phone Care Team Providers Care Syrup Mixer Helper Name Role Phone Pio Hamm DO Primary Care Provider +1- [phone] Encounter Details Date Type Department Care Team (Late st Contact Info) Description 02/28/2016 Procedure Pass [facility] [address] [place] [address] Social History Tobacco Use Types Packs/Day Years [...] on filedocumented in this encounter Care Teams Syrup Mixer Helper Relationship Specialty Start Date End Date Pio Hamm DO [address] [place] [address] PCP - General Internal Medicine 01/20/16 documented as of this encounter Additional Source Comments The information contained in this document represents components of the legal health record. It is not the complete legal health record.[facility]
--- OUTSIDE RECORDS SUMMARY | 2024-12-04 14:13 | XMS_ITS | Encounter Summary ---
Author Organization [facility] Address [address] [place] [address] Phone Care Team Providers Care Animal Tech Name Role Phone Pio Hamm DO Primary Care Provider +1- [phone] Encounter Details Date Type Department Care Team (Late st Contact Info) Description 02/28/2016 Procedure Pass [facility] [address] [place] [address] Social History Tobacco Use Types Packs/Day Years [...] on filedocumented in this encounter Care Teams Animal Tech Relationship Specialty Start Date End Date Pio Hamm DO [address] [place] [address] PCP - General Internal Medicine 01/20/16 documented as of this encounter Additional Source Comments The information contained in this document represents components of the legal health record. It is not the complete legal health record.[facility]
--- OUTSIDE RECORDS SUMMARY | 2024-12-04 14:13 | XMS_ITS | Patient Health Record ---
Author Organization [facility] Address [address] [place] [address] Care Team Providers Care Clerk Guide Name Role Phone Ulises RASMUSSEN, Diamond Primary Care Provider Jagjit Pérez Unavailable [phone] Allergies Allergen (clinical drug ingredient) Drug/Non Drug [...] W/U Status Risk Notes Problem Esophageal reflux (608895149) Esophageal reflux (K21.9) Active confirmed Problem 787223030 Encounter for screening for malignant neoplasm of colon (Z12.11) Active confirmed Problem 99379804 Weight loss (R63.4) Active confirmed Problem Gastric polyp (09678894) Gastric polyp (K31.7) Active confirmed Problem Gastritis (1415091) Gastritis (K29.70) Active confirmed Problem 45746600 Diarrhea, unspecified type (R19.7) Active confirmed Problem 12861795 Irritable bowel syndrome with both constipation and diarrhea (K58.2) Active confirmed Problem Diverticulosis of colon (744137317) Diverticulosis of colon (K57.30) Active confirmed Problem 11019860 Gastric adenoma (D13.1) Active confirmed Problem 993351944 Gastroesophageal reflux disease, unspecified whether esophagitis present (K21.9) Active confirmed Problem 01367145 Nausea and vomiting, unspecified vomiting type (R11.2) Active confirmed Vital Signs Temperature 97.5 degrees Fahrenheit 12/18/2023 Blood pressure diastolic 00 mm Hg 12/18/2023 Height 66 in 12/18/2023 Blood pressure systolic 000 mm Hg 12/18/2023 Weight 124 lb 6 oz lbs 12/18/2023 BMI 20.07 kg/m2 12/18/2023 Encounters Encounter Location Date Provider Diagnosis [facility] [address] [facility] [address] [place] [address] 12/18/2023 Jagjit Son Irritable bowel synd damian [...] End Date Aet[employer] (No Referral) [address] [address] [place] [address] [id number] HE CRAIG Self - patient is the insured [facility]ICAID [facility] [address] [place] [address] [id number] HE CRAIG Self - patient is the insured Medical (General) History Medical History History ICD Code COPD/Asthma IBS PTSD/Depression Denies CA,DM,CVA,renal disease GERD Upper endo in 05/2011 with [...]
== END 2024-12-04 13:27 | disposition home or self-care (01) ==
LOC: HO.ENCR 12:51
PROVIDERS: PCP Internal Medicine; Visit Provider Student in an Organized Health Care Education/Training Program
DX: E21.3 Hyperparathyroidism, unspecified (principal); M81.0 Age-related osteoporosis without current pathological fracture
CPT/HCPCS: 99214

== ENCOUNTER → 2024-12-04 12:50 | Outpatient (BNVA) | payer MEDICARE, MEDICAID, SELFPAY | PROVIDERS: PCP Internal Medicine; Visit Provider Student in an Organized Health Care Education/Training Program | DX: M81.0 Age-related osteoporosis without current pathological fracture (principal); E21.3 Hyperparathyroidism, unspecified | CPT/HCPCS: 99212 ==

== ENCOUNTER 2024-12-28 14:49 | Outpatient (REF) | payer MEDICARE, MEDICAID, SELFPAY ==
[2024-12-28 17:00] LABS: Parathyroid Hormone Intact 116.9 pg/mL (8.7-77.1)
[2024-12-28 17:06] LABS: Creatinine, mg/dL 111.72
[2024-12-28 17:09] LABS: Anion Gap 11 (12-20); Blood Urea Nitrogen 24 mg/dL (9-16); Calcium 9.6 mg/dL (8.4-10.2); Carbon Dioxide 25 mmol/L (22-29); Chloride 108 mmol/L (96-108); Estimated Glomerular Filt Rate 33; Magnesium 1.7 mg/dL (1.6-2.6); Potassium 3.8 mmol/L (3.3-5.1); Sodium 140 mmol/L (135-145)
--- OUTSIDE RECORDS SUMMARY | 2024-12-28 18:46 | XMS_ITS | Clinical Summary ---
Author Organization [facility] Address [address] [address] [address] [place] [address] Phone Care Team Providers Care Vp Corporate Development Name Role Phone Christi Helms MD Primary Care Provider [phone] Allergies Active Allergy Reactions Criticality Noted Date Comments Albuterol Other (see comments) 02/23/2016 Caused mouth sores. jitteriness [place] Other (see comments) 02/23/2016 Mouth breaks out. [...] to complete this topic Insurance [place] [id number] Medicaid [place] [facility] Adv PPO ([id number]) Care Teams Vp Corporate Development Relationship Specialty Start Date End Date Christi Helms MD [address] [place] [address] PCP - General 03/21/20
--- OUTSIDE RECORDS SUMMARY | 2024-12-28 18:46 | XMS_ITS | Clinical Summary ---
Author Organization [facility] Address [address] [facility] [address] [place] [address] Phone Care Team Providers Care Botany Teacher Name Role Phone Pio Hamm Primary Care Provider +1- [phone] Allergies Active Allergy Reactions Criticality Noted Date Comments Albuterol 02/23/2016 Caused mouth sores. [place] And Derivatives Other (See Comments) Mouth breaks [...] file Insurance MEDICARE PART A & B [facility] [address] MEDICARE PART A & B [place] A & B [facility] A & [place] PART A & [place] A & [place] A & [place] A & B [facility] Care Teams Botany Teacher Relationship Specialty Start Date End Date Pio Hamm DO [address] [place] [address] PCP - General Internal Medicine 01/20/16 Additional Source Comments The information contained in this document represents components of the legal health record. It is not the complete legal health record.[facility]
--- OUTSIDE RECORDS SUMMARY | 2024-12-28 18:47 | XMS_ITS | Clinical Summary ---
Author Organization [facility] Address [address] [place] [address] Care Team Providers Care Tire And Lube Technician Name Role Phone Christi Helms MD Primary Care Provider Allergies Active Allergy Reactions Criticality Noted Date [...] - 2023-2 5 season) 2024 RSV Vaccine 50 years and old er and Patients (1 - 1-dose 75+ series) 08/03/2026 Hepatitis B Vaccines Aged Out No long er eligible based on patient's age to complete this topic Insurance [employer] [facility] TPL (AUTO/LIABILITY) MEDICARE PART A & B [facility] Care Teams Tire And Lube Technician Relationship Specialty Start Date End Date Christi Helms MD [address] [place] [address] PCP - General 08/27/19
--- OUTSIDE RECORDS SUMMARY | 2024-12-28 18:47 | XMS_ITS | Patient Health Record ---
Author Organization [facility] Address [address] [place] [address] Care Team Providers Care Tape Recorder Mechanic Name Role Phone Ulises RASMUSSEN, Diamond Primary Care Provider Jagjit Pérez Unavailable [phone] Allergies Allergen (clinical drug ingredient) Drug/Non Drug [...] TABLET BY JJ TH TWICE DAILY FOR REFLUX.; Duration: 90 Active Dicyclomine HCl 10 MG TAKE 1 TO 2 CAPSUL ES BY MOUTH EVERY 6 HOURS NEEDED FOR ABDOMINAL DISCOMFORT/CRAMPS FOR 30 DAYS.; Duration: 90 Active Gabapentin 100 MG Oral; Duration: 90 Not-Taking Omeprazole 20 MG One daily Orally Onc e every morning; Duration: 90 days Active Atrovent HFA 17 MCG/ACT 2 puffs Inhalati on Four times a day Active PARoxetine HCl 30 MG 1 tablet in the mor florencia Orally Once a day Active Carbidopa-Levodopa 25-100 MG Oral; Duration: 90 Active buPROPion HCl ER (SR) 150 MG 1tablet Orally Twice a day Active clonazePAM 0.5 MG 1po Orally qid Active Vitamin B6 100 MG 1 tablet Orally Once a day; Duration: 30 day(s) Active Immunizations Vaccine Route Administration Date Status Comme nts Flu vaccine no Preserv 3 and > Unknown 11/25/2013 Admin istered Influenza Unknown 11/09/2020 Administered Influenza Unknown 12/11/2023 Administered Problems Problem Type SNOMED Code ICD Code Onset Dates Problem Status W/U Status Risk Notes Problem Esophageal reflux (555129153) Esophageal reflux (K21.9) Active confirmed Problem Screening for malignant neoplasm of colon (932886417) Encounter for screening for malignant neoplasm of colon (Z12.11) Active confirmed Problem Weight loss (169507499) Weight loss (R63.4) Active confirmed Problem Gastric polyp (57310882) Gastric polyp (K31.7) Active confirmed Problem Gastritis (8686727) Gastritis (K29.70) Active c onfirmed Problem Diarrhea (57298338) Diarrhea, unspecified type (R19.7) Active confirmed Problem Irritable bowel syndrome (42464699) Irritable bowel syndrome with both constipation and diarrhea (K58.2) Active confirmed Problem Diverticulosis of colon (716031574) Diverticulosis of colon (K57.30) Active confirmed Problem Benign neoplasm of stomach (38497346) Gastric adenoma (D13.1) Active confirmed Problem Gastroesophageal reflux disease (290842889) Gastroesophageal reflux disease, unspecified whether esophagitis present (K21.9) Active confirmed Problem Nausea and vomiting (15083463) Nausea and vomiting, unspecified vomiting type (R11.2) Active confirmed Plan Of Treatment Pending Test Test Name [...] End Date [employer] (No Referral) [address] [address] [facility] [address] [id number] HE CRAIG Self - patient is the insured MEDICAID OF [employer] [address] [place] [address] [id number] HE CRAIG Self - patient is the insured Medical (General) History Medical History History ICD Code COPD/Asthma IBS PTSD/Depression Denies [place],DM,CVA,renal disease GERD Upper endo in 05/2011 with [...]
--- OUTSIDE RECORDS SUMMARY | 2024-12-28 18:47 | XMS_ITS | Encounter Summary ---
Author Organization [facility] Address [address] [place] [address] Phone Care Team Providers Care Business Administration Professor Name Role Phone Pio Hamm DO Primary Care Provider +1- [phone] Encounter Details Date Type Department Care Team (Late st Contact Info) Description 02/28/2016 Procedure Pass [facility] [address] [place] [address] Social History Tobacco Use Types Packs/Day Years [...] on filedocumented in this encounter Care Teams Business Administration Professor Relationship Specialty Start Date End Date Pio Hamm DO [address] [place] [address] PCP - General Internal Medicine 01/20/16 documented as of this encounter Additional Source Comments The information contained in this document represents components of the legal health record. It is not the complete legal health record.[facility]
--- OUTSIDE RECORDS SUMMARY | 2024-12-28 18:47 | XMS_ITS | Encounter Summary ---
Author Organization [facility] Address [address] [place] [address] Phone Care Team Providers Care Therapist Physical Name Role Phone Pio Hamm DO Primary Care Provider +1- [phone] Encounter Details Date Type Department Care Team (Late st Contact Info) Description 02/28/2016 Procedure Pass [facility] [address] [place] [address] Social History Tobacco Use Types Packs/Day Years [...] on filedocumented in this encounter Care Teams Therapist Physical Relationship Specialty Start Date End Date Pio Hamm DO [address] [place] [address] PCP - General Internal Medicine 01/20/16 documented as of this encounter Additional Source Comments The information contained in this document represents components of the legal health record. It is not the complete legal health record.[facility]
--- OUTSIDE RECORDS SUMMARY | 2024-12-28 18:48 | XMS_ITS | Encounter Summary ---
Author Organization [facility] Address [address] [place] [address] Phone Care Team Providers Care Food Sales Clerk Name Role Phone Pio Hamm DO Primary Care Provider +1- [phone] Encounter Details Date Type Department Care Team (Late st Contact Info) Description 02/28/2016 Procedure Pass [facility] [address] [place] [address] Social History Tobacco Use Types Packs/Day Years [...] on filedocumented in this encounter Care Teams Food Sales Clerk Relationship Specialty Start Date End Date Pio Hamm DO [address] [place] [address] PCP - General Internal Medicine 01/20/16 documented as of this encounter Additional Source Comments The information contained in this document represents components of the legal health record. It is not the complete legal health record.[facility]
[2024-12-28 19:32] LABS: Total Volume 24 Hour Urine 725 mL
[2024-12-30 18:58] LABS: Calcium/Creatinine Ratio 123 mg/g creat (30-275); Creatinine 24Hr Urine 0.81 g/24 h (0.50-2.15)
--- OUTSIDE RECORDS SUMMARY | 2025-01-17 20:00 | XMS_ITS | Clinical Summary ---
Author Organization Unknown Care Team Providers Care Flow Worker Name Role Phone YAIMA RASMUSSEN, KAVITA BEST Unavailable Unav agata SPEARS RN, SNEHAL Unavailable Unavailable Payers Payer Name Policy Type Policy Number Effective Date Expira tion Date [employer] MEDICARE ADVANTAGE FFS [id number] [place] [id number] Problems Condition Name Condition Details Condition Category [...] on aerosol inhaler 06-25 00:00: 00 Yes [id number] 2 puff DIRECTED 2 puff DIRECTED (route: inhalation ) Med Classific ation: Respirato ry Therapy Agents bupropion HCl XL 300 mg 24 hr tablet, extended release 06-25 00:00: 00 Yes [id number] 1 tablet DAILY 1 tablet DAILY (route: oral) Med Classific ation: Central Nervous System Agents carbidopa 25 mg-levodopa 100 mg tablet 06-25 00:00: 00 Yes [id number] 1.5 tablet 4 TIMES DAILY 1.5 tablet 4 TIMES DAILY (route: oral) Med Classific ation: Central Nervous System Agents famotidine 40 mg tablet 417 00:00: 00 09-01 23:59 :00 No [id number] 1 tablet DAILY 1 tablet DAILY (route: oral) Med Classific ation: Gastroint estinal Therapy Agents paroxetine 40 mg tablet 4-17 00:00: 00 Yes [id number] 1 tablet DAILY 1 tablet DAILY (route: oral) Med Classific ation: Central Nervous System Agents trazodone 50 mg tablet 17 00:00: 00 09-01 23:59 :00 No [id number] Per instruc tions BEDTIME Per instructio ns BEDTIME (route: oral) Med Classific ation: Central Nervous System Agents gabapentin 100 mg capsule 08-01 00:00: 00 09-01 23:59 :00 No [id number] pain Per instruc tions BEDTIME Per instructio ns BEDTIME (route: oral) Med Classific ation: Central Nervous System Agents omeprazole 40 mg capsule,del ayed release 24 00:00: 00 05-20 23:59 :00 No [id number] 1 capsule DAILY 1 capsule DAILY (route: oral) Med Classific ation: Gastroint estinal Therapy Agents gabapentin 100 mg capsule 2023-03 0 00:00: 00 09-01 23:59 :00 No [id number] Per instruc tions 2 TIMES DAILY Per instructio ns 2 TIMES DAILY (route: oral) Med Classific ation: Central Nervous System Agents famotidine 40 mg tablet 3-16 00:00: 00 Yes [id number] 1 tablet EVERY AM 1 tablet EVERY AM (route: oral) Med Classific ation: Gastroint estinal Therapy Agents Tylenol Arthritis Pain 650 mg tablet,exte nded release 3-21 00:00: 00 Yes [id number] 1 tablet EVERY 8 HOURS 1 tablet EVERY 8 HOURS (route: oral) Med Classific ation: Analgesic , Anti-infl ammatory or Antipyret ic cyclobenzap rine 10 mg tablet 08-05 00:00: 00 09-01 23:59 :00 No [id number] 1 tablet BEDTIME 1 tablet BEDTIME (route: oral) Med Classific ation: Locomotor System meloxicam 15 mg tablet 08-05 00:00: 00 09-01 23:59 :00 No [id number] 1 tablet DAILY 1 tablet DAILY (route: oral) Med Classific ation: Analgesic , Anti-infl ammatory or Antipyret ic cyclobenzap rine 10 mg tablet 09-01 00:00: 00 Yes [id number] 1 tablet BEDTIME 1 tablet BEDTIME (route: oral) Med Classific ation: Locomotor System meloxicam 15 mg tablet 09-01 00:00: 00 Yes [id number] 1 tablet EVERY AM 1 tablet EVERY AM (route: oral) Med Classific ation: Analgesic , Anti-infl ammatory or Antipyret ic trazodone 50 mg tablet 09-01 00:00: 00 Yes [id number] Per instruc tions BEDTIME Per instructio ns BEDTIME (route: oral) Med Classific ation: Central Nervous System Agents erythromyci n 5 mg/gram (0.5 %) eye ointment 2024-03 00:00: 00 Yes [id number] Per instruc tions 4 TIMES DAILY Per instructio ns 4 TIMES DAILY (route: ophthalmic (eye)) Med Classific ation: Ophthalmi c Agents Vital Signs Vital Name Observation Time Observation Value Commen ts Pulse 2024-12-21 11:47:00.000 63 /min Pulse 2024-12-18 10:48:00.000 52 /min Pulse 2024-12-16 12:09:00.000 60 /min Pulse 2024-12-07 11:02:00.000 62 /min Pulse 2024-12-04 11:31:00.000 70 /min Pulse 2024-12-02 11:56:00.000 74 /min Pulse 2024-11-30 11:35:00.000 66 /min Pulse 2024-11-23 11:18:00.000 78 /min O2 Saturation (%) 2024-12-21 11:47:00.000 99 % O2 Saturation (%) 2024-12-18 10:48:00.000 96 % O2 Saturation (%) 2024-12-16 12:09:00.000 95 % O2 Saturation (%) 2024-12-07 11:02:00.000 96 % O2 Saturation (%) 2024-12-04 11:31:00.000 96 % O2 Saturation (%) 2024-11-30 11:35:00.000 96 % Respirations 2024-12-23 11:20:00.000 20 /min Respirations 2024-12-21 11:47:00.000 20 /min Respirations 2024-12-18 10:48:00.000 20 /min Respirations 2024-12-16 12:09:00.000 20 /min Respirations 2024-12-07 11:02:00.000 20 /min Respirations 2024-12-04 11:31:00.000 20 /min Respirations 2024-12-02 11:56:00.000 20 /min Respirations 2024-11-30 11:35:00.000 20 /min Respirations 2024-11-23 11:18:00.000 20 /min Systolic Blood Pressure 2024-12-23 11:20:00.000 118 mm [Hg] Systolic Blood Pressure 2024-12-21 11:47:00.000 106 mm [Hg] Systolic Blood Pressure 2024-12-18 10:48:00.000 112 mm [Hg] Systolic Blood Pressure 2024-12-16 12:09:00.000 108 mm [Hg] Systolic Blood Pressure 2024-12-07 11:02:00.000 118 mm [Hg] Systolic Blood Pressure 2024-12-04 11:31:00.000 113 mm [Hg] Systolic Blood Pressure 2024-12-02 11:56:00.000 114 mm [Hg] Systolic Blood Pressure 2024-11-30 11:35:00.000 104 mm [Hg] Systolic Blood Pressure 2024-11-23 11:18:00.000 106 mm [Hg] Diastolic Blood Pressure 2024-12-23 11:20:00.000 68 mm [Hg] Diastolic Blood Pressure 2024-12-21 11:47:00.000 66 mm [Hg] Diastolic Blood Pressure 2024-12-18 10:48:00.000 64 mm [Hg] Diastolic Blood Pressure 2024-12-16 12:09:00.000 64 mm [Hg] Diastolic Blood Pressure 2024-12-07 11:02:00.000 62 mm [Hg] Diastolic Blood Pressure 2024-12-04 11:31:00.000 66 mm [Hg] Diastolic Blood Pressure 2024-12-02 11:56:00.000 60 mm [Hg] Diastolic Blood Pressure 2024-11-30 11:35:00.000 64 mm [Hg] Diastolic Blood Pressure 2024-11-23 11:18:00.000 70 mm [Hg] Plan of Treatment Planned Activity [...] RSE TO PRE-POUR MEDICATION PER MEDICATION LIST WEEKLY [code = SKILLED NURSE TO PRE-POUR MEDICATION PER MEDICATION LIST WEEKLY] Future Scheduled Test PATIENT MA Y HAVE [...] OF PATIENTS MENTAL/BEHAVIORAL STATUS, ASSESS VITAL SIGNS 1WK8, SNV 3WK8 ALLOW 2 PRNS FOR MEDICATION MANAGEMENT. [code = SKILLED NURSE TO O/A OF PATIENTS MENTAL/BEHAVIORAL STATUS, ASSESS VITAL SIGNS 1WK8, SNV 3WK8 ALLOW 2 PRNS FOR MEDICATION MANAGEMENT.] Future Scheduled Test SKILLED NU RSE FOR O/A OF GENERAL HEALTH STATUS OF PAIN, CARDIAC, RESPIRATORY, GASTROINTESTINAL, GENITOURINARY, SKIN, NEUROLOGIC, ENDOCRINE SYSTEMS TO IDENTIFY CHANGES ASSOCIATED WITH EXACERBATION FOR EARLY INTERVENTION OF COMPLICATIONS 1WK8 [code = SKILLED NURSE FOR O/A OF GENERAL HEALTH STATUS OF PAIN, CARDIAC, RESPIRATORY, GASTROINTESTINAL, GENITOURINARY, SKIN, NEUROLOGIC, ENDOCRINE SYSTEMS TO IDENTIFY CHANGES ASSOCIATED WITH EXACERBATION FOR EARLY INTERVENTION OF COMPLICATIONS 1WK8] Future Scheduled Test SKILLED NU RSE FOR O/A AND SKILLED TEACHING OF COPING SKILLS TO MANAGE ANXIETY AND MAINTAIN SAFETY. [code = SKILLED NURSE FOR O/A AND SKILLED TEACHING OF COPING SKILLS TO MANAGE ANXIETY AND MAINTAIN SAFETY.] Future Scheduled Test SKILLED NU RSE FOR O/A AND SKILLED TEACHING RELATED TO MANAGEMENT OF DEPRESSIVE SYMPTOMS AND/OR DEPRESSION. SN TO REPORT SIGNIFICANT CHANGE IN DEPRESSIVE SYMPTOMS TO CLINICAL PROVIDER FOR EARLY INTERVENTION. [code = SKILLED NURSE FOR O/A AND SKILLED TEACHING RELATED TO MANAGEMENT OF DEPRESSIVE SYMPTOMS AND/OR DEPRESSION. SN TO REPORT SIGNIFICANT CHANGE IN DEPRESSIVE SYMPTOMS TO CLINICAL PROVIDER FOR EARLY INTERVENTION.] Future Scheduled Test SKILLED NU RSE TO [...] REST] Future Scheduled Test SKILLED NU RSE TO ASSESS PATIENT S PSYCHOSOCIAL STATUS TO IDENTIFY POTENTIAL ISSUES THAT MAY COMPLICATE THE PROVISION OF THE PLAN OF CARE INCLUDING THE PATIENT S ABILITY TO ACCESS COMMUNITY RESOURCES AND PSYCHOSOCIAL SUPPORT SERVICES. [code = SKILLED NURSE TO ASSESS PATIENT S PSYCHOSOCIAL STATUS TO IDENTIFY POTENTIAL ISSUES THAT MAY COMPLICATE THE PROVISION OF THE PLAN OF CARE INCLUDING THE PATIENT S ABILITY TO ACCESS COMMUNITY RESOURCES AND PSYCHOSOCIAL SUPPORT SERVICES.] Future Scheduled Test SKILLED NU RSE WILL MAINTAIN SITUATIONAL AWARENESS FOR SAFETY AND WILL NOTIFY CLINICAL WEDDING PLANNER AND PHYSICIAN/PROVIDER WITH ANY CHANGE IN CONDITION. [code = SKILLED NURSE WILL MAINTAIN SITUATIONAL AWARENESS FOR SAFETY AND WILL NOTIFY CLINICAL WEDDING PLANNER AND PHYSICIAN/PROVIDER WITH ANY CHANGE IN CONDITION.] Goal 2023-11-22 Patient Goal - CONTINUE TO F EEL GOOD Goal 2024-09-16 Patient Goal - STAY ACTIVE T HIS SUMMER Goal 2024-07-20 Patient Goal - T O GET OUT OF PAIN SO I CAN BE MORE ACTIVE Goal 2024-05-20 Patient Goal - M HANS APPT WITH NEW THERAPIST Goal 2024-03-20 Patient Goal - TO STAY HEALT HY Goal 2024-01-20 Patient Goal - TO GET THINGS ORGANIZED Goal Patient Goal - T O NOT FORGET MY PARKINSON'S MEDICATION Goal 2024-11-16 Patient Goal - TAKE MY MEDIC ATION ON TIME Goal Provider Goal - A PLAN OF CARE WILL BE ESTABLISHED THAT MEETS PATIENT'S CARE HOME NEEDS AND INCLUDES PATIENT GOAL FOR HOME [...] Provider Goal - PATIENT WILL REMAIN SAFE WITHOUT DECOMPENSATION IN DEPRESSIVE CONDITION, WHILE MAINTAINING OPTIMAL LEVEL OF MENTAL HEALTH AND WELL BEING THROUGHOUT CERTIFICATION PERIOD. Goal Provider Goal - PATIENT/CAREGIVER WILL VERBALIZE SIGNS AND SYMPTOMS OF PARKINSON'S DISEASE AND DEMONSTRATE METHODS TO MANAGE DISEASE PROCESS BY END OF CERTIFICATION PERIOD. Goal Provider Goal - PATIENT/CAREGIVER WILL VERBALIZE UNDERSTANDING OF EDUCATION PROVIDED ON MEDICATIONS BY THE END OF THE CERTIFICATION PERIOD. Goal Provider Goal - PATIENT WILL REPORT [...] SELF AND OTHERS THROUGHOUT THE CERTIFICATION PERIOD. Encounters Start Date/Time End Date/Time Encounter Type Admission Type Attending [facility] Care Department Encounter ID Discharge Date Discharge Status Discharge Condition Discharge Reason Percent Goals Met 2024-11-20 00:00:00 2025-01-18 00:00:00 Outpatient RECERTIFIC ATION S[facility] [id number] 82.76
== END 2024-12-28 14:50 | disposition home or self-care (01) ==
LOC: HO.HMGCLDS 14:49
PROVIDERS: PCP Internal Medicine; Visit Provider Student in an Organized Health Care Education/Training Program
DX: M81.0 Age-related osteoporosis without current pathological fracture (principal); E21.3 Hyperparathyroidism, unspecified
CPT/HCPCS: 36415; 80048; 82306; 82340; 82570; 83735; 83970

== ENCOUNTER 2025-01-27 14:23 | Outpatient (REF) | payer MEDICARE, MEDICAID, SELFPAY ==
--- NOTE | ~2025-01-27 | US_ITS ---
EXAMINATION: US THYROID CLINICAL INFORMATION: Hyperparathyroidism. Please evaluate parathyroid glands. Nontoxic multinodular goiter. COMPARISON: 11/23/2021. FNA of right mid pole nodule 08/23/2020, benign. TECHNIQUE: Linear transducer grayscale and color Doppler examination with attention to the region of the thyroid. FINDINGS: SIZE: Measurements of the thyroid lobes and nodules are given in sagittal, anteroposterior and transverse dimensions respectively. Right Thyroid Lobe: 4.9 x 1.5 x 1.3 cm, volume 4.9 mL. Parenchyma: The gland echotexture is homogeneous. Thyroid vascularity is increased. Left Thyroid Lobe: 5.1 x 1.1 x 1.0 cm, volume 2.9 mL. Parenchyma: The gland echotexture is homogeneous. Thyroid vascularity is increased. Isthmus: 0.2 cm in maximum AP dimension. Estimated total number of nodules greater than or equal to 1 cm: 1. Instructional Resource Teacher nodules are described as follows: 1. Location: Right mid pole. Size: 2.4 x 1.5 x 1.2 cm, volume 2.3 mL. (Previously measuring 1.2 mL). Previous FNA was benign. Nodule characteristics: Composition: Solid/almost completely solid (2). Echogenicity: Very hypoechoic (3). Shape: Taller than wide (3). Margins: Smooth (0). Echogenic Foci: Punctate echogenic foci (3). ACR TI-RADS total points: 11 ACR TI-RADS category: 5 (previously characterized as TR category 1). 2. Location: Left mid pole. Size: 0.6 x 0.4 x 0.8 cm, volume 0.10 mL. (Unchanged in size) Nodule characteristics: Composition: Spongiform (0). ACR TI-RADS category: 1 3. Location: Left mid pole Size: 0.6 x 0.4 x 0.5 cm, volume 0.05 mL. (Unchanged in size) Nodule characteristics: Composition: Spongiform (0). ACR TI-RADS category: 1 NODES: No lymphadenopathy is seen in the tissue surrounding the thyroid gland. In the region of the parathyroid glands, no mass or parathyroid adenoma is detected. US/US thyroid IMPRESSION: 1. Thyroid nodules as discussed. Dominant right mid pole nodule measuring up to 2.4 cm currently was biopsied previously with benign result, however has increased in size significantly, with more worrisome features. Repeat FNA could be considered. 2. In the region of the parathyroid glands, no mass or parathyroid adenoma is detected. 3. No abnormal lymph nodes within the neck. ACR TI-RADS RECOMMENDATION REFERENCE: Ultrasound-guided fine-needle aspiration, followup ultrasound, no further follow up. * TR1 (0 point) and TR2 (2 points): No FNA or follow up. * TR3 (3 points): FNA if more than or equal to 2.5 cm in maximum dimension, followup ultrasound in 1, 3 and 5 years if 1.5 to 2.4 cm in maximum dimension. * TR4 (4-6 points): FNA if more than or equal to 1.5 cm in maximum dimension, followup ultrasound in 1, 2, 3 and 5 years if 1 to 1.4 cm in maximum dimension. * TR5 (more than or equal to 7 points): FNA if more than or equal to 1 cm in maximum dimension, followup ultrasound every year for 5 years if 0.5 to 0.9 cm in maximum dimension. * TR3, TR4 or TR5 nodules that are below the size threshold for followup receive no follow up. Electronically signed by: Geovanni Jimenez MD 01/27/2025 03:25 PM [facility]
--- OUTSIDE RECORDS SUMMARY | 2025-01-28 02:54 | XMS_ITS | Clinical Summary ---
Author Organization [facility] Address [address] [place] [address] Phone Care Team Providers Care Assembling Motor Builder Name Role Phone Pio Hamm Primary Care Provider +1- [phone] Allergies Active Allergy Reactions Criticality Noted Date Comments Albuterol 02/23/2016 Caused mouth sores. [place] And Derivatives Other (See Comments) Mouth breaks [...] VACCINES (50+ years) (2 of 2 - PCV20 or PCV21) 12/01/2020 12/02/2019 INFLUENZA VACCINE (#1) 2024 0, [...] file Insurance MEDICARE PART A & B [facility] MEDICARE PART A & B [place] [facility] B Member Subscriber Plan / Payer ( fective 1995-) Name:Lien Jerry Member ID:[id number] Relation to Subscriber:Self Name:Lien Jerry Subscriber ID:[id number] Payer ID:[id number] Group ID:Not on file Type:Medicare Address: [facility] [employer] [facility] [address] [place] [phone] [place] A & B [place] [facility] Care Teams Assembling Motor Builder Relationship Specialty Start Date End Date Pio Hamm DO [address] [place] [address] PCP - General Internal Medicine 01/20/16 Additional Source Comments The information contained in this document represents components of the legal health record. It is not the complete legal health record.[facility]
--- OUTSIDE RECORDS SUMMARY | 2025-01-28 02:54 | XMS_ITS | Encounter Summary ---
Author Organization [facility] Address [address] [place] [address] Phone Care Team Providers Care Wafer Fab Operator Name Role Phone Pio Hamm DO Primary Care Provider +1- [phone] Encounter Details Date Type Department Care Team (Late st Contact Info) Description 02/28/2016 Procedure Pass [facility] [address] [place] [address] Social History Tobacco Use Types Packs/Day Years [...] on filedocumented in this encounter Care Teams Wafer Fab Operator Relationship Specialty Start Date End Date Pio Hamm DO [address] [place] [address] PCP - General Internal Medicine 01/20/16 documented as of this encounter Additional Source Comments The information contained in this document represents components of the legal health record. It is not the complete legal health record.[facility]
--- OUTSIDE RECORDS SUMMARY | 2025-01-28 02:54 | XMS_ITS | Encounter Summary ---
Author Organization [facility] Address [address] [place] [address] Phone Care Team Providers Care Sub Acute Care Nurse Name Role Phone Pio Hamm DO Primary Care Provider +1- [phone] Encounter Details Date Type Department Care Team (Late st Contact Info) Description 02/28/2016 Procedure Pass [facility] [address] [place] [address] Social History Tobacco Use Types Packs/Day Years [...] on filedocumented in this encounter Care Teams Sub Acute Care Nurse Relationship Specialty Start Date End Date Pio Hamm DO [address] [place] [address] PCP - General Internal Medicine 01/20/16 documented as of this encounter Additional Source Comments The information contained in this document represents components of the legal health record. It is not the complete legal health record.[facility]
--- OUTSIDE RECORDS SUMMARY | 2025-01-28 02:54 | XMS_ITS | Patient Health Record ---
Author Organization [facility] Address [address] [place] [address] Care Team Providers Care Driver'S License Examiner Name Role Phone Ulises RASMUSSEN, Diamond Primary Care Provider Jagjit Pérez Unavailable [phone] Allergies Allergen (clinical drug ingredient) Drug/Non Drug Allergy documented on EMR Reaction Allergy Type Onset Date Status albuterol Albuterol Unknown Drug Allergy Active metoclopramide Reglan Unknown Drug Allergy Ac tive sulfamethoxazole Sulfamethoxazole Unknown Drug Allergy Active Reason For Referral No Information Medications Medication SIG (Take, Route, Frequency, Duration) Notes Start Date End Date Status Famotidine 40 MG Tablet TAKE 1 TABLET BY MOUTH TWICE DAILY FOR REFLUX.; Duration: 90 Active Dicyclomine HCl 10 MG Capsule TAKE 1 TO 2 CAPSULES BY MOUTH EVERY 6 HOURS NEEDED FOR ABDOMINAL DISCOMFORT/CRAMPS FOR 30 DAYS.; Duration: 90 Active Gabapentin 100 MG Capsule Oral; Duration: 90 Not-Takin g/PRN Omeprazole 20 MG Capsule Delayed Release One daily Orally Once every morning; Duration: 90 days Active Atrovent HFA 17 MCG/ACT Aerosol Solution 2 puffs Inhalation Four times a day Active PARoxetine HCl 30 MG Tablet 1 tablet in the morning Orally Once a day Active Carbidopa-Levodopa 25-100 MG Tablet Oral; Duration: 90 Activ e buPROPion HCl ER (SR) 150 MG Tablet Extended Release 12 Hour 1tablet Orally Twice a day Active clonazePAM 0.5 MG Tablet Dispersible 1po Orally qid Active Vitamin B6 100 MG Tablet 1 tablet Orally Once a day; Duration: 30 day(s) Active Immunizations Vaccine Route Administration Date Status Comme nts Flu vaccine no Preserv 3 and > Unknown 11/25/2013 Admin istered Influenza Unknown 11/09/2020 Administered Influenza Unknown 12/11/2023 Administered Social History Social History Additional Details Category Social Info Options Details Miscellaneous: Marital status: single 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 amount of EtOH Does not smoke nor use sig. amount of EtOH Does not smoke nor use sig. amount of EtOH Does not smoke nor use sig. amount of EtOH Does not smoke nor use sig. amount of EtOH Does not smoke nor use sig. amount of EtOH Does not smoke nor use sig. amount of EtOH Does not smoke nor use sig. amount of EtOH Problems Problem Type SNOMED Code ICD Code Onset Dates Problem Status W/U Status Risk Notes Problem Esophageal reflux (709199198) Esophageal reflux (K21.9) Active confirmed Problem Screening for malignant neoplasm of colon (515367159) Encounter for screening for malignant neoplasm of colon (Z12.11) Active confirmed Problem Weight loss (042551532) Weight loss (R63.4) Active confirmed Problem Gastric polyp (78500345) Gastric polyp (K31.7) Active confirmed Problem Gastritis (4922250) Gastritis (K29.70) Active c onfirmed Problem Diarrhea (65044606) Diarrhea, unspecified type (R19.7) Active confirmed Problem Irritable bowel syndrome (04963837) Irritable bowel syndrome with both constipation and diarrhea (K58.2) Active confirmed Problem Diverticulosis of colon (519901528) Diverticulosis of colon (K57.30) Active confirmed Problem Benign neoplasm of stomach (94845594) Gastric adenoma (D13.1) Active confirmed Problem Gastroesophageal reflux disease (211894375) Gastroesophageal reflux disease, unspecified whether esophagitis present (K21.9) Active confirmed Problem Nausea and vomiting (13234952) Nausea and vomiting, unspecified vomiting type (R11.2) [...] End Date [employer] (No Referral) [address] [address] [place] [address] [id number] HE CRAIG Self - patient is the insured MEDICAID OF [place] [address] [place] [phone] [id number] HE CRAIG Self - patient is the insured Medical (General) History Medical History History ICD Code COPD/Asthma IBS PTSD/Depression Denies [place],DM,CVA,renal disease GERD Upper endo in 05/2011 with [...]
--- OUTSIDE RECORDS SUMMARY | 2025-01-28 02:55 | XMS_ITS | Encounter Summary ---
Author Organization [facility] Address [address] [place] [address] Phone Care Team Providers Care Sand Carrier Name Role Phone Pio Hamm DO Primary Care Provider [phone] Encounter Details Date Type Department Care Team (Late st Contact Info) Description 02/28/2016 Procedure Pass [facility] [address] [place] [address] Social History Tobacco Use Types Packs/Day Years [...] on filedocumented in this encounter Care Teams Sand Carrier Relationship Specialty Start Date End Date Pio Hamm DO [address] [place] [address] PCP - General Internal Medicine 01/20/16 documented as of this encounter Additional Source Comments The information contained in this document represents components of the legal health record. It is not the complete legal health record.[facility]
--- OUTSIDE RECORDS SUMMARY | 2025-01-28 02:56 | XMS_ITS | Clinical Summary ---
Author Organization [facility] Address [address] [place] [address] Phone Care Team Providers Care Manager Intensive Care Name Role Phone Christi Helms MD Primary Care Provider [phone] Allergies Active Allergy Reactions Criticality Noted Date Comments Albuterol Other (see comments) 02/23/2016 Caused mouth sores. jitteriness Whiteside Other (see comments) 02/23/2016 Mouth breaks out. [...] to complete this topic Insurance [facility] [place] [id number] Medicaid [place] [facility] [place] ([id number]) Care Teams Manager Intensive Care Relationship Specialty Start Date End Date Christi Helms MD [address] [place] [address] PCP - General 03/21/20
--- OUTSIDE RECORDS SUMMARY | 2025-01-28 02:56 | XMS_ITS | Clinical Summary ---
Author Organization [facility] Address [address] [place] [address] Care Team Providers Care Patient Services Specialist Name Role Phone Christi Helms MD Primary Care Provider [phone] Allergies Active Allergy Reactions Criticality Noted Date [...] patient's age to complete this topic Insurance [employer] [facility] TPL (AUTO/LIABILITY) MEDICARE PART A & B [facility] Care Teams Patient Services Specialist Relationship Specialty Start Date End Date Christi Helms MD [address] [place] [id number] PCP - General 08/27/19
--- OUTSIDE RECORDS SUMMARY | 2025-03-18 19:00 | XMS_ITS | Clinical Summary ---
Author Organization Unknown Care Team Providers Care Assistant Cross Country Coach Name Role Phone YAIMA RASMUSSEN, KAVITA BEST Unavailable Unamirella SPEARS RN, SNEHAL Unavailable Unavailable Payers Payer Name Policy Type Policy Number Effective Date Expira tion Date [employer] MEDICARE ADVANTAGE FFS [id number] MEDICARE - [place] - PDGM [id number] Problems Condition Name Condition Details Condition Category [...] mcg/actuati on aerosol inhaler 06-25 00:00: 00 12-31 23:59 :00 No [id number] 2 puff DIRECTED 2 puff DIRECTED (route: inhalation ) Med Classific ation: Respirato ry Therapy Agents bupropion HCl XL 300 mg 24 hr tablet, extended release 06-25 00:00: 00 12-31 23:59 :00 No [id number] 1 tablet DAILY 1 tablet DAILY (route: oral) Med Classific ation: Central Nervous System Agents carbidopa 25 mg-levodopa 100 mg tablet 417 00:00: 00 12-31 23:59 :00 No [id number] 1.5 tablet 4 TIMES DAILY 1.5 tablet 4 TIMES DAILY (route: oral) Med Classific ation: Central Nervous System Agents famotidine 40 mg tablet 417 00:00: 00 09-01 23:59 :00 No [id number] 1 tablet DAILY 1 tablet DAILY (route: oral) Med Classific ation: Gastroint estinal Therapy Agents paroxetine 40 mg tablet 17 00:00: 00 12-31 23:59 :00 No [id number] 1 tablet DAILY 1 tablet DAILY (route: oral) Med Classific ation: Central Nervous System Agents trazodone 50 mg tablet 06-25 00:00: 00 09-01 23:59 :00 No [id number] Per instruc tions BEDTIME Per instructio ns BEDTIME (route: oral) Med Classific ation: Central Nervous System Agents gabapentin 100 mg capsule -24 00:00: 00 09-01 23:59 :00 No [id number] pain Per instruc tions BEDTIME Per instructio ns BEDTIME (route: oral) Med Classific ation: Central Nervous System Agents omeprazole 40 mg capsule,del ayed release -24 00:00: 00 05-20 23:59 :00 No [id number] 1 capsule DAILY 1 capsule DAILY (route: oral) Med Classific ation: Gastroint estinal Therapy Agents gabapentin 100 mg capsule 2023-03 0- 00:00: 00 09-01 23:59 :00 No [id number] Per instruc tions 2 TIMES DAILY Per instructio ns 2 TIMES DAILY (route: oral) Med Classific ation: Central Nervous System Agents famotidine 40 mg tablet 3-16 00:00: 00 12-31 23:59 :00 No [id number] 1 tablet EVERY AM 1 tablet EVERY AM (route: oral) Med Classific ation: Gastroint estinal Therapy Agents Tylenol Arthritis Pain 650 mg tablet,exte nded release 3-21 00:00: 00 12-31 23:59 :00 No [id number] 1 tablet EVERY 8 HOURS 1 tablet EVERY 8 HOURS (route: oral) Med Classific ation: Analgesic , Anti-infl ammatory or Antipyret ic cyclobenzap rine 10 mg tablet 08-05 00:00: 00 09-01 23:59 :00 No [id number] 1 tablet BEDTIME 1 tablet BEDTIME (route: oral) Med Classific ation: Locomotor System meloxicam 15 mg tablet 08-05 00:00: 00 09-01 23:59 :00 No [id number] 1 tablet DAILY 1 tablet DAILY (route: oral) Med Classific ation: Analgesic , Anti-infl ammatory or Antipyret ic cyclobenzap rine 10 mg tablet 09-01 00:00: 00 12-31 23:59 :00 No [id number] 1 tablet BEDTIME 1 tablet BEDTIME (route: oral) Med Classific ation: Locomotor System meloxicam 15 mg tablet 09-01 00:00: 00 12-31 23:59 :00 No [id number] 1 tablet EVERY AM 1 tablet EVERY AM (route: oral) Med Classific ation: Analgesic , Anti-infl ammatory or Antipyret ic trazodone 50 mg tablet 09-01 00:00: 00 12-31 23:59 :00 No [id number] Per instruc tions BEDTIME Per instructio ns BEDTIME (route: oral) Med Classific ation: Central Nervous System Agents erythromyci n 5 mg/gram (0.5 %) eye ointment 2024-03 00:00: 00 Yes [id number] Per instruc tions 4 TIMES DAILY Per instructio ns 4 TIMES DAILY (route: ophthalmic (eye)) Med Classific ation: Ophthalmi c Agents albuterol sulfate HFA 90 mcg/actuati on aerosol inhaler 2024-03 00:00: 00 Yes [id number] 2 puff EVERY 6 HOURS 2 puff EVERY 6 HOURS (route: inhalation ) Med Classific ation: Respirato ry Therapy Agents bupropion HCl XL 300 mg 24 hr tablet, extended release 2024-03 00:00: 00 Yes [id number] 1 tablet EVERY AM 1 tablet EVERY AM (route: oral) Med Classific ation: Central Nervous System Agents carbidopa 25 mg-levodopa 100 mg disintegrat ing tablet 2024-03 00:00: 00 Yes [id number] 1.5 tablet NOON 1.5 tablet NOON (route: oral) Med Classific ation: Central Nervous System Agents carbidopa 25 mg-levodopa 100 mg tablet 2024-03 00:00: 00 Yes [id number] 1.5 tablet EVERY AM 1.5 tablet EVERY AM (route: oral) Med Classific ation: Central Nervous System Agents carbidopa 25 mg-levodopa 100 mg tablet 2024-03 00:00: 00 Yes [id number] 1.5 tablet EVERY PM 1.5 tablet EVERY PM (route: oral) Med Classific ation: Central Nervous System Agents carbidopa 25 mg-levodopa 100 mg tablet 2024-03 00:00: 00 Yes [id number] 1.5 tablet BEDTIME 1.5 tablet BEDTIME (route: oral) Med Classific ation: Central Nervous System Agents cyclobenzap rine 10 mg tablet 2024-03 00:00: 00 Yes [id number] 1 tablet BEDTIME 1 tablet BEDTIME (route: oral) Med Classific ation: Locomotor System famotidine 40 mg tablet 2024-03 00:00: 00 Yes [id number] 1 tablet EVERY AM 1 tablet EVERY AM (route: oral) Med Classific ation: Gastroint estinal Therapy Agents meloxicam 15 mg tablet 2024-03 00:00: 00 Yes [id number] 1 tablet EVERY AM 1 tablet EVERY AM (route: oral) Med Classific ation: Analgesic , Anti-infl ammatory or Antipyret ic paroxetine 40 mg tablet 2024-03 00:00: 00 Yes [id number] 1 tablet EVERY AM 1 tablet EVERY AM (route: oral) Med Classific ation: Central Nervous System Agents trazodone 50 mg tablet 2024-03 00:00: 00 Yes [id number] 1 tablet BEDTIME 1 tablet BEDTIME (route: oral) Med Classific ation: Central Nervous System Agents Tylenol Arthritis Pain 650 mg tablet,exte nded release 2024-03 0-23 00:00: 00 Yes [id number] 1 tablet EVERY 8 HOURS 1 tablet EVERY 8 HOURS (route: oral) Med Classific ation: Analgesic , Anti-infl ammatory or Antipyret ic Farxiga 5 mg tablet 2024-03 1-03 00:00: 00 Yes [id number] 1 tablet EVERY AM 1 tablet EVERY AM (route: oral) Med Classific ation: Endocrine Vital Signs Vital Name Observation Time Observation Value Commen ts Pulse 2025-01-25 11:11:00.000 67 /min Pulse 2025-01-22 11:33:00.000 79 /min Pulse 2025-01-20 11:20:00.000 62 /min O2 Saturation (%) 2025-01-25 11:11:00.000 97 % Respirations 2025-01-25 11:11:00.000 20 /min Respirations 2025-01-22 11:33:00.000 20 /min Respirations 2025-01-20 11:20:00.000 20 /min Systolic Blood Pressure 2025-01-25 11:11:00.000 140 mm [Hg] Systolic Blood Pressure 2025-01-22 11:33:00.000 133 mm [Hg] Systolic Blood Pressure 2025-01-20 11:20:00.000 137 mm [Hg] Diastolic Blood Pressure 2025-01-25 11:11:00.000 71 mm [Hg] Diastolic Blood Pressure 2025-01-22 11:33:00.000 69 mm [Hg] Diastolic Blood Pressure 2025-01-20 11:20:00.000 73 mm [Hg] Plan of Treatment Planned Activity Planned Date Details Comments Future Scheduled Test SKILLED NU RSE TO EVALUATE PATIENT, IDENTIFY PRIMARY AND CO-MORBID CONDITIONS CODED PER CODING GUIDELINES, AND DEVELOP PATIENT SPECIFIC PLAN OF CARE THAT INCLUDES PATIENT GOAL FOR HOME HEALTH. PLAN OF CARE TO INCLUDE 3 PRN VISIT(S) FOR OASIS DATA COLLECTION/COMPREHENSIVE ASSESSMENT AT TIMEPOINTS PER FEDERAL REGULATIONS. THIS INCLUDES VISITS FOR RENATE, RECERT, SCIC, AND/OR DC. [code = SKILLED NURSE TO EVALUATE PATIENT, IDENTIFY PRIMARY AND CO-MORBID CONDITIONS CODED PER CODING GUIDELINES, AND DEVELOP PATIENT SPECIFIC PLAN OF CARE THAT INCLUDES PATIENT GOAL FOR HOME HEALTH. PLAN OF CARE TO INCLUDE 3 PRN VISIT(S) FOR OASIS DATA COLLECTION/COMPREHENSIVE ASSESSMENT AT TIMEPOINTS PER FEDERAL REGULATIONS. THIS INCLUDES VISITS FOR RENATE, RECERT, SCIC, AND/OR DC.] Future Scheduled Test SKILLED NU RSE WILL MAINTAIN SITUATIONAL AWARENESS FOR SAFETY AND WILL NOTIFY CLINICAL HEAD OF OPERATION AND LOGISTICS AND PHYSICIAN/PROVIDER WITH ANY CHANGE IN CONDITION. [code = SKILLED NURSE WILL MAINTAIN SITUATIONAL AWARENESS FOR SAFETY AND WILL NOTIFY CLINICAL HEAD OF OPERATION AND LOGISTICS AND PHYSICIAN/PROVIDER WITH ANY CHANGE IN CONDITION.] [...] WITH EXACERBATION FOR EARLY INTERVENTION OF COMPLICATIONS WEEKLY [code = SKILLED NURSE FOR O/A OF GENERAL HEALTH STATUS OF PAIN, CARDIAC, RESPIRATORY, GASTROINTESTINAL, GENITOURINARY, SKIN, NEUROLOGIC, ENDOCRINE SYSTEMS TO IDENTIFY CHANGES ASSOCIATED WITH EXACERBATION FOR EARLY INTERVENTION OF COMPLICATIONS WEEKLY] Future Scheduled Test SKILLED NU RSE TO [...] SO I CAN BE MORE ACTIVE Goal 2024-09-16 Patient Goal - STAY ACTIVE T HIS SUMMER Goal 2024-11-16 Patient Goal - TAKE MY MEDIC ATION ON TIME Goal 2025-01-15 Patient Goal - T O NOT FORGET MY [facility]'S MEDICATION Goal Patient Goal - F INISH THINGS I START BEFORE STARTING SOMETHING ELSE Goal Provider Goal - A PLAN OF CARE WILL BE ESTABLISHED THAT MEETS PATIENT'S HALF-WAY NEEDS AND INCLUDES PATIENT GOAL FOR HOME [...] Notes <paragraph>[Visit Date: 2024 by SNEHAL SPEARS RN]:</paragraph><paragraph>PT IS A&O X3 AND FORGETFUL. 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 HER HOME IS CLUTTERED AND DISORGANIZED. SHE REPORTS DIFFICULTY COMPLETING THINGS SHE STARTS. SHE CONTINUES WITH A HOMEMAKER 1X/WK. SHE C/O BLE PAIN 6/10 TODAY THAT CONTINUES TO EFFECT HER QUALITY OF SLEEP. SHE HAS BEEN NON COMPLIANT WITH FOLLOW THROUGH WITH PT HOME EXERCISES. SN REINFORCED IMPORTANCE ALONG WITH USE OF HEAT PRN. 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 SHE IS COMPLIANT WITH HER MED PP PER HER MED FINANCIAL COACH AND DENIES ANY ADVERSE EFFECTS.</paragraph> Encounters Start Date/Time End Date/Time Encounter Type Admission Type Attending Clinicians Care Facility Care Department Encounter ID Discharge Date Discharge Status Discharge Condition Discharge Reason Percent Goals Met 2025-01-19 00:00:00 2025-03-19 00:00:00 Outpatient RECERTIFIC ATSNEHAL VELA [facility] [id number] 76.00
--- OUTSIDE RECORDS SUMMARY | 2025-03-18 19:00 | XMS_ITS | Clinical Summary ---
Author Organization Unknown Care Team Providers Care Metal Handler Name Role Phone YAIMA RASMUSSEN, KAVITA BEST Unavailable Unamirella SPEARS RN, SNEHAL Unavailable Unavailable Payers Payer Name Policy Type Policy Number Effective Date Expira tion Date [employer] MEDICARE ADVANTAGE FFS [id number] MEDICARE - [place] PDGM [id number] Problems Condition Name Condition Details Condition Category [...] 06-25 00:00: 00 12-31 23:59 :00 No [id number] 2 puff DIRECTED 2 puff DIRECTED (route: inhalation ) Med Classific ation: Respirato ry Therapy Agents bupropion HCl XL 300 mg 24 hr tablet, extended release 06-25 00:00: 00 12-31 23:59 :00 No [id number] 1 tablet DAILY 1 tablet DAILY (route: oral) Med Classific ation: Central Nervous System Agents carbidopa 25 mg-levodopa 100 mg tablet 417 00:00: 00 12-31 23:59 :00 No [id number] 1.5 tablet 4 TIMES DAILY 1.5 tablet 4 TIMES DAILY (route: oral) Med Classific ation: Central Nervous System Agents famotidine 40 mg tablet 417 00:00: 00 09-01 23:59 :00 No [id number] 1 tablet DAILY 1 tablet DAILY (route: oral) Med Classific ation: Gastroint estinal Therapy Agents paroxetine 40 mg tablet 17 00:00: 00 12-31 23:59 :00 No [id number] 1 tablet DAILY 1 tablet DAILY (route: oral) Med Classific ation: Central Nervous System Agents trazodone 50 mg tablet 06-25 00:00: 00 09-01 23:59 :00 No [id number] Per instruc tions BEDTIME Per instructio ns BEDTIME (route: oral) Med Classific ation: Central Nervous System Agents gabapentin 100 mg capsule -24 00:00: 00 09-01 23:59 :00 No [id number] pain Per instruc tions BEDTIME Per instructio ns BEDTIME (route: oral) Med Classific ation: Central Nervous System Agents omeprazole 40 mg capsule,del ayed release -24 00:00: 00 05-20 23:59 :00 No [id number] 1 capsule DAILY 1 capsule DAILY (route: oral) Med Classific ation: Gastroint estinal Therapy Agents gabapentin 100 mg capsule 2023-03 0- 00:00: 00 09-01 23:59 :00 No [id number] Per instruc tions 2 TIMES DAILY Per instructio ns 2 TIMES DAILY (route: oral) Med Classific ation: Central Nervous System Agents famotidine 40 mg tablet 3-16 00:00: 00 12-31 23:59 :00 No [id number] 1 tablet EVERY AM 1 tablet EVERY AM (route: oral) Med Classific ation: Gastroint estinal Therapy Agents Tylenol Arthritis Pain 650 mg tablet,exte nded release 3-21 00:00: 00 12-31 23:59 :00 No [id number] 1 tablet EVERY 8 HOURS 1 tablet EVERY 8 HOURS (route: oral) Med Classific ation: Analgesic , Anti-infl ammatory or Antipyret ic cyclobenzap rine 10 mg tablet 08-05 00:00: 00 09-01 23:59 :00 No [id number] 1 tablet BEDTIME 1 tablet BEDTIME (route: oral) Med Classific ation: Locomotor System meloxicam 15 mg tablet 08-05 00:00: 00 09-01 23:59 :00 No [id number] 1 tablet DAILY 1 tablet DAILY (route: oral) Med Classific ation: Analgesic , Anti-infl ammatory or Antipyret ic cyclobenzap rine 10 mg tablet 09-01 00:00: 00 12-31 23:59 :00 No [id number] 1 tablet BEDTIME 1 tablet BEDTIME (route: oral) Med Classific ation: Locomotor System meloxicam 15 mg tablet 09-01 00:00: 00 12-31 23:59 :00 No [id number] 1 tablet EVERY AM 1 tablet EVERY AM (route: oral) Med Classific ation: Analgesic , Anti-infl ammatory or Antipyret ic trazodone 50 mg tablet 09-01 00:00: 00 12-31 23:59 :00 No [id number] Per instruc tions BEDTIME Per instructio ns BEDTIME (route: oral) Med Classific ation: Central Nervous System Agents erythromyci n 5 mg/gram (0.5 %) eye ointment 2024-03 00:00: 00 Yes [id number] Per instruc tions 4 TIMES DAILY Per instructio ns 4 TIMES DAILY (route: ophthalmic (eye)) Med Classific ation: Ophthalmi c Agents albuterol sulfate HFA 90 mcg/actuati on aerosol inhaler 2024-03 00:00: 00 Yes [id number] 2 puff EVERY 6 HOURS 2 puff EVERY 6 HOURS (route: inhalation ) Med Classific ation: Respirato ry Therapy Agents bupropion HCl XL 300 mg 24 hr tablet, extended release 2024-03 00:00: 00 Yes [id number] 1 tablet EVERY AM 1 tablet EVERY AM (route: oral) Med Classific ation: Central Nervous System Agents carbidopa 25 mg-levodopa 100 mg disintegrat ing tablet 2024-03 00:00: 00 Yes [id number] 1.5 tablet NOON 1.5 tablet NOON (route: oral) Med Classific ation: Central Nervous System Agents carbidopa 25 mg-levodopa 100 mg tablet 2024-03 00:00: 00 Yes [id number] 1.5 tablet EVERY AM 1.5 tablet EVERY AM (route: oral) Med Classific ation: Central Nervous System Agents carbidopa 25 mg-levodopa 100 mg tablet 2024-03 00:00: 00 Yes [id number] 1.5 tablet EVERY PM 1.5 tablet EVERY PM (route: oral) Med Classific ation: Central Nervous System Agents carbidopa 25 mg-levodopa 100 mg tablet 2024-03 00:00: 00 Yes [id number] 1.5 tablet BEDTIME 1.5 tablet BEDTIME (route: oral) Med Classific ation: Central Nervous System Agents cyclobenzap rine 10 mg tablet 2024-03 00:00: 00 Yes [id number] 1 tablet BEDTIME 1 tablet BEDTIME (route: oral) Med Classific ation: Locomotor System famotidine 40 mg tablet 2024-03 00:00: 00 Yes [id number] 1 tablet EVERY AM 1 tablet EVERY AM (route: oral) Med Classific ation: Gastroint estinal Therapy Agents meloxicam 15 mg tablet 2024-03 00:00: 00 Yes [id number] 1 tablet EVERY AM 1 tablet EVERY AM (route: oral) Med Classific ation: Analgesic , Anti-infl ammatory or Antipyret ic paroxetine 40 mg tablet 2024-03 00:00: 00 Yes [id number] 1 tablet EVERY AM 1 tablet EVERY AM (route: oral) Med Classific ation: Central Nervous System Agents trazodone 50 mg tablet 2024-03 00:00: 00 Yes [id number] 1 tablet BEDTIME 1 tablet BEDTIME (route: oral) Med Classific ation: Central Nervous System Agents Tylenol Arthritis Pain 650 mg tablet,exte nded release 2024-03 0-23 00:00: 00 Yes [id number] 1 tablet EVERY 8 HOURS 1 tablet EVERY 8 HOURS (route: oral) Med Classific ation: Analgesic , Anti-infl ammatory or Antipyret ic Farxiga 5 mg tablet 2024-03 1-03 00:00: 00 Yes [id number] 1 tablet EVERY AM 1 tablet EVERY [...] AWARENESS FOR SAFETY AND WILL NOTIFY CLINICAL ASSEMBLING INSPECTOR AND PHYSICIAN/PROVIDER WITH ANY CHANGE IN CONDITION. [code = SKILLED NURSE WILL MAINTAIN SITUATIONAL AWARENESS FOR SAFETY AND WILL NOTIFY CLINICAL ASSEMBLING INSPECTOR AND PHYSICIAN/PROVIDER WITH ANY CHANGE IN CONDITION.] [...] CLEAN AND NEATLY DRESSED IN KITCHEN WITH PASTE UP ARTIST PRESENT D/T MOUSE PROBLEM. HER HOME IS [...] WITH HER MED PP PER HER MED LEGAL RECOVERY SPECIALIST AND DENIES ANY ADVERSE EFFECTS.</paragraph> Encounters Start Date/Time End Date/Time Encounter Type Admission Type Attending Clinicians Care Facility Care Department Encounter ID Discharge Date Discharge Status Discharge Condition Discharge Reason Percent Goals Met 2025-01-19 00:00:00 2025-03-19 00:00:00 Outpatient RECERTIFIC ATSNEHAL VELA [facility] [id number] 76.00
--- OUTSIDE RECORDS SUMMARY | 2025-03-18 19:00 | XMS_ITS | Clinical Summary ---
Author Organization Unknown Care Team Providers Care Interactive Multimedia Designer Name Role Phone YAIMA RASMUSSEN, KAVITA BEST Unavailable Unamirella SPEARS RN, SNEHAL Unavailable Unavailable Payers Payer Name Policy Type Policy Number Effective Date Expira tion Date [employer] MEDICARE ADVANTAGE FFS [id number] MEDICARE - [place] - PDGM [id number] Problems Condition Name Condition Details Condition Category [...] 06-25 00:00: 00 12-31 23:59 :00 No [id number] 2 puff DIRECTED 2 puff DIRECTED (route: inhalation ) Med Classific ation: Respirato ry Therapy Agents bupropion HCl XL 300 mg 24 hr tablet, extended release 06-25 00:00: 00 12-31 23:59 :00 No [id number] 1 tablet DAILY 1 tablet DAILY (route: oral) Med Classific ation: Central Nervous System Agents carbidopa 25 mg-levodopa 100 mg tablet 417 00:00: 00 12-31 23:59 :00 No [id number] 1.5 tablet 4 TIMES DAILY 1.5 tablet 4 TIMES DAILY (route: oral) Med Classific ation: Central Nervous System Agents famotidine 40 mg tablet 417 00:00: 00 09-01 23:59 :00 No [id number] 1 tablet DAILY 1 tablet DAILY (route: oral) Med Classific ation: Gastroint estinal Therapy Agents paroxetine 40 mg tablet 17 00:00: 00 12-31 23:59 :00 No [id number] 1 tablet DAILY 1 tablet DAILY (route: oral) Med Classific ation: Central Nervous System Agents trazodone 50 mg tablet 06-25 00:00: 00 09-01 23:59 :00 No [id number] Per instruc tions BEDTIME Per instructio ns BEDTIME (route: oral) Med Classific ation: Central Nervous System Agents gabapentin 100 mg capsule -24 00:00: 00 09-01 23:59 :00 No [id number] pain Per instruc tions BEDTIME Per instructio ns BEDTIME (route: oral) Med Classific ation: Central Nervous System Agents omeprazole 40 mg capsule,del ayed release -24 00:00: 00 05-20 23:59 :00 No [id number] 1 capsule DAILY 1 capsule DAILY (route: oral) Med Classific ation: Gastroint estinal Therapy Agents gabapentin 100 mg capsule 2023-03 0- 00:00: 00 09-01 23:59 :00 No [id number] Per instruc tions 2 TIMES DAILY Per instructio ns 2 TIMES DAILY (route: oral) Med Classific ation: Central Nervous System Agents famotidine 40 mg tablet 3-16 00:00: 00 12-31 23:59 :00 No [id number] 1 tablet EVERY AM 1 tablet EVERY AM (route: oral) Med Classific ation: Gastroint estinal Therapy Agents Tylenol Arthritis Pain 650 mg tablet,exte nded release 3-21 00:00: 00 12-31 23:59 :00 No [id number] 1 tablet EVERY 8 HOURS 1 tablet EVERY 8 HOURS (route: oral) Med Classific ation: Analgesic , Anti-infl ammatory or Antipyret ic cyclobenzap rine 10 mg tablet 08-05 00:00: 00 09-01 23:59 :00 No [id number] 1 tablet BEDTIME 1 tablet BEDTIME (route: oral) Med Classific ation: Locomotor System meloxicam 15 mg tablet 08-05 00:00: 00 09-01 23:59 :00 No [id number] 1 tablet DAILY 1 tablet DAILY (route: oral) Med Classific ation: Analgesic , Anti-infl ammatory or Antipyret ic cyclobenzap rine 10 mg tablet 09-01 00:00: 00 12-31 23:59 :00 No [id number] 1 tablet BEDTIME 1 tablet BEDTIME (route: oral) Med Classific ation: Locomotor System meloxicam 15 mg tablet 09-01 00:00: 00 12-31 23:59 :00 No [id number] 1 tablet EVERY AM 1 tablet EVERY AM (route: oral) Med Classific ation: Analgesic , Anti-infl ammatory or Antipyret ic trazodone 50 mg tablet 09-01 00:00: 00 12-31 23:59 :00 No [id number] Per instruc tions BEDTIME Per instructio ns BEDTIME (route: oral) Med Classific ation: Central Nervous System Agents erythromyci n 5 mg/gram (0.5 %) eye ointment 2024-03 00:00: 00 Yes [id number] Per instruc tions 4 TIMES DAILY Per instructio ns 4 TIMES DAILY (route: ophthalmic (eye)) Med Classific ation: Ophthalmi c Agents albuterol sulfate HFA 90 mcg/actuati on aerosol inhaler 2024-03 00:00: 00 Yes [id number] 2 puff EVERY 6 HOURS 2 puff EVERY 6 HOURS (route: inhalation ) Med Classific ation: Respirato ry Therapy Agents bupropion HCl XL 300 mg 24 hr tablet, extended release 2024-03 00:00: 00 Yes [id number] 1 tablet EVERY AM 1 tablet EVERY AM (route: oral) Med Classific ation: Central Nervous System Agents carbidopa 25 mg-levodopa 100 mg disintegrat ing tablet 2024-03 00:00: 00 Yes [id number] 1.5 tablet NOON 1.5 tablet NOON (route: oral) Med Classific ation: Central Nervous System Agents carbidopa 25 mg-levodopa 100 mg tablet 2024-03 00:00: 00 Yes [id number] 1.5 tablet EVERY AM 1.5 tablet EVERY AM (route: oral) Med Classific ation: Central Nervous System Agents carbidopa 25 mg-levodopa 100 mg tablet 2024-03 00:00: 00 Yes [id number] 1.5 tablet EVERY PM 1.5 tablet EVERY PM (route: oral) Med Classific ation: Central Nervous System Agents carbidopa 25 mg-levodopa 100 mg tablet 2024-03 00:00: 00 Yes [id number] 1.5 tablet BEDTIME 1.5 tablet BEDTIME (route: oral) Med Classific ation: Central Nervous System Agents cyclobenzap rine 10 mg tablet 2024-03 00:00: 00 Yes [id number] 1 tablet BEDTIME 1 tablet BEDTIME (route: oral) Med Classific ation: Locomotor System famotidine 40 mg tablet 2024-03 00:00: 00 Yes [id number] 1 tablet EVERY AM 1 tablet EVERY AM (route: oral) Med Classific ation: Gastroint estinal Therapy Agents meloxicam 15 mg tablet 2024-03 00:00: 00 Yes [id number] 1 tablet EVERY AM 1 tablet EVERY AM (route: oral) Med Classific ation: Analgesic , Anti-infl ammatory or Antipyret ic paroxetine 40 mg tablet 2024-03 00:00: 00 Yes [id number] 1 tablet EVERY AM 1 tablet EVERY AM (route: oral) Med Classific ation: Central Nervous System Agents trazodone 50 mg tablet 2024-03 00:00: 00 Yes [id number] 1 tablet BEDTIME 1 tablet BEDTIME (route: oral) Med Classific ation: Central Nervous System Agents Tylenol Arthritis Pain 650 mg tablet,exte nded release 2024-03 0-23 00:00: 00 Yes [id number] 1 tablet EVERY 8 HOURS 1 tablet EVERY 8 HOURS (route: oral) Med Classific ation: Analgesic , Anti-infl ammatory or Antipyret ic Farxiga 5 mg tablet 2024-03 1-03 00:00: 00 Yes [id number] 1 tablet EVERY AM 1 tablet EVERY [...] AWARENESS FOR SAFETY AND WILL NOTIFY CLINICAL BUSINESS SYSTEM MANAGER AND PHYSICIAN/PROVIDER WITH ANY CHANGE IN CONDITION. [code = SKILLED NURSE WILL MAINTAIN SITUATIONAL AWARENESS FOR SAFETY AND WILL NOTIFY CLINICAL BUSINESS SYSTEM MANAGER AND PHYSICIAN/PROVIDER WITH ANY CHANGE IN [...] CARE WILL BE ESTABLISHED THAT MEETS PATIENT'S [facility] NEEDS AND INCLUDES PATIENT GOAL FOR HOME [...] CLEAN AND NEATLY DRESSED IN KITCHEN WITH CEMENT STORAGE WORKER PRESENT D/T MOUSE PROBLEM. HER HOME IS [...] WITH HER MED PP PER HER MED ROOF PROMENADE TILE SETTER AND DENIES ANY ADVERSE EFFECTS.</paragraph> Encounters Start Date/Time End Date/Time Encounter Type Admission Type Attending Clinicians Care Facility Care Department Encounter ID Discharge Date Discharge Status Discharge Condition Discharge Reason Percent Goals Met 2025-01-19 00:00:00 2025-03-19 00:00:00 Outpatient RECERTIFIC ATSNEHAL [facility] [id number] 76.00
--- OUTSIDE RECORDS SUMMARY | 2025-03-18 19:00 | XMS_ITS | Clinical Summary ---
Author Organization Unknown Care Team Providers Care Cuff Setter Lockstitch Name Role Phone YAIMA RASMUSSEN, KAVITA BEST Unavailable Unamirella SPEARS RN, SNEHAL Unavailable Unavailable Payers Payer Name Policy Type Policy Number Effective Date Expira tion Date [employer] MEDICARE ADVANTAGE FFS [id number] MEDICARE - [place] - PDGM [id number] Problems Condition Name Condition Details Condition Category [...] 06-25 00:00: 00 12-31 23:59 :00 No [id number] 2 puff DIRECTED 2 puff DIRECTED (route: inhalation ) Med Classific ation: Respirato ry Therapy Agents bupropion HCl XL 300 mg 24 hr tablet, extended release 06-25 00:00: 00 12-31 23:59 :00 No [id number] 1 tablet DAILY 1 tablet DAILY (route: oral) Med Classific ation: Central Nervous System Agents carbidopa 25 mg-levodopa 100 mg tablet 417 00:00: 00 12-31 23:59 :00 No [id number] 1.5 tablet 4 TIMES DAILY 1.5 tablet 4 TIMES DAILY (route: oral) Med Classific ation: Central Nervous System Agents famotidine 40 mg tablet 417 00:00: 00 09-01 23:59 :00 No [id number] 1 tablet DAILY 1 tablet DAILY (route: oral) Med Classific ation: Gastroint estinal Therapy Agents paroxetine 40 mg tablet 17 00:00: 00 12-31 23:59 :00 No [id number] 1 tablet DAILY 1 tablet DAILY (route: oral) Med Classific ation: Central Nervous System Agents trazodone 50 mg tablet 06-25 00:00: 00 09-01 23:59 :00 No [id number] Per instruc tions BEDTIME Per instructio ns BEDTIME (route: oral) Med Classific ation: Central Nervous System Agents gabapentin 100 mg capsule -24 00:00: 00 09-01 23:59 :00 No [id number] pain Per instruc tions BEDTIME Per instructio ns BEDTIME (route: oral) Med Classific ation: Central Nervous System Agents omeprazole 40 mg capsule,del ayed release -24 00:00: 00 05-20 23:59 :00 No [id number] 1 capsule DAILY 1 capsule DAILY (route: oral) Med Classific ation: Gastroint estinal Therapy Agents gabapentin 100 mg capsule 2023-03 0- 00:00: 00 09-01 23:59 :00 No [id number] Per instruc tions 2 TIMES DAILY Per instructio ns 2 TIMES DAILY (route: oral) Med Classific ation: Central Nervous System Agents famotidine 40 mg tablet 3-16 00:00: 00 12-31 23:59 :00 No [id number] 1 tablet EVERY AM 1 tablet EVERY AM (route: oral) Med Classific ation: Gastroint estinal Therapy Agents Tylenol Arthritis Pain 650 mg tablet,exte nded release 3-21 00:00: 00 12-31 23:59 :00 No [id number] 1 tablet EVERY 8 HOURS 1 tablet EVERY 8 HOURS (route: oral) Med Classific ation: Analgesic , Anti-infl ammatory or Antipyret ic cyclobenzap rine 10 mg tablet 08-05 00:00: 00 09-01 23:59 :00 No [id number] 1 tablet BEDTIME 1 tablet BEDTIME (route: oral) Med Classific ation: Locomotor System meloxicam 15 mg tablet 08-05 00:00: 00 09-01 23:59 :00 No [id number] 1 tablet DAILY 1 tablet DAILY (route: oral) Med Classific ation: Analgesic , Anti-infl ammatory or Antipyret ic cyclobenzap rine 10 mg tablet 09-01 00:00: 00 12-31 23:59 :00 No [id number] 1 tablet BEDTIME 1 tablet BEDTIME (route: oral) Med Classific ation: Locomotor System meloxicam 15 mg tablet 09-01 00:00: 00 12-31 23:59 :00 No [id number] 1 tablet EVERY AM 1 tablet EVERY AM (route: oral) Med Classific ation: Analgesic , Anti-infl ammatory or Antipyret ic trazodone 50 mg tablet 09-01 00:00: 00 12-31 23:59 :00 No [id number] Per instruc tions BEDTIME Per instructio ns BEDTIME (route: oral) Med Classific ation: Central Nervous System Agents erythromyci n 5 mg/gram (0.5 %) eye ointment 2024-03 00:00: 00 Yes [id number] Per instruc tions 4 TIMES DAILY Per instructio ns 4 TIMES DAILY (route: ophthalmic (eye)) Med Classific ation: Ophthalmi c Agents albuterol sulfate HFA 90 mcg/actuati on aerosol inhaler 2024-03 00:00: 00 Yes [id number] 2 puff EVERY 6 HOURS 2 puff EVERY 6 HOURS (route: inhalation ) Med Classific ation: Respirato ry Therapy Agents bupropion HCl XL 300 mg 24 hr tablet, extended release 2024-03 00:00: 00 Yes [id number] 1 tablet EVERY AM 1 tablet EVERY AM (route: oral) Med Classific ation: Central Nervous System Agents carbidopa 25 mg-levodopa 100 mg disintegrat ing tablet 2024-03 00:00: 00 Yes [id number] 1.5 tablet NOON 1.5 tablet NOON (route: oral) Med Classific ation: Central Nervous System Agents carbidopa 25 mg-levodopa 100 mg tablet 2024-03 00:00: 00 Yes [id number] 1.5 tablet EVERY AM 1.5 tablet EVERY AM (route: oral) Med Classific ation: Central Nervous System Agents carbidopa 25 mg-levodopa 100 mg tablet 2024-03 00:00: 00 Yes [id number] 1.5 tablet EVERY PM 1.5 tablet EVERY PM (route: oral) Med Classific ation: Central Nervous System Agents carbidopa 25 mg-levodopa 100 mg tablet 2024-03 00:00: 00 Yes [id number] 1.5 tablet BEDTIME 1.5 tablet BEDTIME (route: oral) Med Classific ation: Central Nervous System Agents cyclobenzap rine 10 mg tablet 2024-03 00:00: 00 Yes [id number] 1 tablet BEDTIME 1 tablet BEDTIME (route: oral) Med Classific ation: Locomotor System famotidine 40 mg tablet 2024-03 00:00: 00 Yes [id number] 1 tablet EVERY AM 1 tablet EVERY AM (route: oral) Med Classific ation: Gastroint estinal Therapy Agents meloxicam 15 mg tablet 2024-03 00:00: 00 Yes [id number] 1 tablet EVERY AM 1 tablet EVERY AM (route: oral) Med Classific ation: Analgesic , Anti-infl ammatory or Antipyret ic paroxetine 40 mg tablet 2024-03 00:00: 00 Yes [id number] 1 tablet EVERY AM 1 tablet EVERY AM (route: oral) Med Classific ation: Central Nervous System Agents trazodone 50 mg tablet 2024-03 00:00: 00 Yes [id number] 1 tablet BEDTIME 1 tablet BEDTIME (route: oral) Med Classific ation: Central Nervous System Agents Tylenol Arthritis Pain 650 mg tablet,exte nded release 2024-03 0-23 00:00: 00 Yes [id number] 1 tablet EVERY 8 HOURS 1 tablet EVERY 8 HOURS (route: oral) Med Classific ation: Analgesic , Anti-infl ammatory or Antipyret ic Farxiga 5 mg tablet 2024-03 1-03 00:00: 00 Yes [id number] 1 tablet EVERY AM 1 tablet EVERY [...] AWARENESS FOR SAFETY AND WILL NOTIFY CLINICAL SCRUB NURSE AND PHYSICIAN/PROVIDER WITH ANY CHANGE IN CONDITION. [code = SKILLED NURSE WILL MAINTAIN SITUATIONAL AWARENESS FOR SAFETY AND WILL NOTIFY CLINICAL SCRUB NURSE AND PHYSICIAN/PROVIDER WITH ANY CHANGE IN CONDITION.] [...] CARE WILL BE ESTABLISHED THAT MEETS PATIENT'S ALF NEEDS AND INCLUDES PATIENT GOAL FOR HOME [...] CLEAN AND NEATLY DRESSED IN KITCHEN WITH TRANSMISSION SYSTEM OPERATOR PRESENT D/T MOUSE PROBLEM. HER HOME IS [...] WITH HER MED PP PER HER MED ELEVATOR CONSTRUCTOR AND DENIES ANY ADVERSE EFFECTS.</paragraph> Encounters Start Date/Time End Date/Time Encounter Type Admission Type Attending Clinicians Care Facility Care Department Encounter ID Discharge Date Discharge Status Discharge Condition Discharge Reason Percent Goals Met 2025-01-19 00:00:00 2025-03-19 00:00:00 Outpatient RECERTIFIC ATSNEHAL VELA [facility] [id number] 76.00
--- OUTSIDE RECORDS SUMMARY | 2025-03-18 19:00 | XMS_ITS | Clinical Summary ---
Author Organization Unknown Care Team Providers Care Learning Technologies Specialist Name Role Phone YAIMA RASMUSSEN, KAVITA BEST Unavailable Unamirella SPEARS RN, SNEHAL Unavailable Unavailable Payers Payer Name Policy Type Policy Number Effective Date Expira tion Date [employer] MEDICARE ADVANTAGE FFS [id number] MEDICARE - [place] PDGM [id number] Problems Condition Name Condition Details Condition Category [...] 06-25 00:00: 00 12-31 23:59 :00 No [id number] 2 puff DIRECTED 2 puff DIRECTED (route: inhalation ) Med Classific ation: Respirato ry Therapy Agents bupropion HCl XL 300 mg 24 hr tablet, extended release 06-25 00:00: 00 12-31 23:59 :00 No [id number] 1 tablet DAILY 1 tablet DAILY (route: oral) Med Classific ation: Central Nervous System Agents carbidopa 25 mg-levodopa 100 mg tablet 417 00:00: 00 12-31 23:59 :00 No [id number] 1.5 tablet 4 TIMES DAILY 1.5 tablet 4 TIMES DAILY (route: oral) Med Classific ation: Central Nervous System Agents famotidine 40 mg tablet 417 00:00: 00 09-01 23:59 :00 No [id number] 1 tablet DAILY 1 tablet DAILY (route: oral) Med Classific ation: Gastroint estinal Therapy Agents paroxetine 40 mg tablet 17 00:00: 00 12-31 23:59 :00 No [id number] 1 tablet DAILY 1 tablet DAILY (route: oral) Med Classific ation: Central Nervous System Agents trazodone 50 mg tablet 06-25 00:00: 00 09-01 23:59 :00 No [id number] Per instruc tions BEDTIME Per instructio ns BEDTIME (route: oral) Med Classific ation: Central Nervous System Agents gabapentin 100 mg capsule -24 00:00: 00 09-01 23:59 :00 No [id number] pain Per instruc tions BEDTIME Per instructio ns BEDTIME (route: oral) Med Classific ation: Central Nervous System Agents omeprazole 40 mg capsule,del ayed release -24 00:00: 00 05-20 23:59 :00 No [id number] 1 capsule DAILY 1 capsule DAILY (route: oral) Med Classific ation: Gastroint estinal Therapy Agents gabapentin 100 mg capsule 2023-03 0- 00:00: 00 09-01 23:59 :00 No [id number] Per instruc tions 2 TIMES DAILY Per instructio ns 2 TIMES DAILY (route: oral) Med Classific ation: Central Nervous System Agents famotidine 40 mg tablet 3-16 00:00: 00 12-31 23:59 :00 No [id number] 1 tablet EVERY AM 1 tablet EVERY AM (route: oral) Med Classific ation: Gastroint estinal Therapy Agents Tylenol Arthritis Pain 650 mg tablet,exte nded release 3-21 00:00: 00 12-31 23:59 :00 No [id number] 1 tablet EVERY 8 HOURS 1 tablet EVERY 8 HOURS (route: oral) Med Classific ation: Analgesic , Anti-infl ammatory or Antipyret ic cyclobenzap rine 10 mg tablet 08-05 00:00: 00 09-01 23:59 :00 No [id number] 1 tablet BEDTIME 1 tablet BEDTIME (route: oral) Med Classific ation: Locomotor System meloxicam 15 mg tablet 08-05 00:00: 00 09-01 23:59 :00 No [id number] 1 tablet DAILY 1 tablet DAILY (route: oral) Med Classific ation: Analgesic , Anti-infl ammatory or Antipyret ic cyclobenzap rine 10 mg tablet 09-01 00:00: 00 12-31 23:59 :00 No [id number] 1 tablet BEDTIME 1 tablet BEDTIME (route: oral) Med Classific ation: Locomotor System meloxicam 15 mg tablet 09-01 00:00: 00 12-31 23:59 :00 No [id number] 1 tablet EVERY AM 1 tablet EVERY AM (route: oral) Med Classific ation: Analgesic , Anti-infl ammatory or Antipyret ic trazodone 50 mg tablet 09-01 00:00: 00 12-31 23:59 :00 No [id number] Per instruc tions BEDTIME Per instructio ns BEDTIME (route: oral) Med Classific ation: Central Nervous System Agents erythromyci n 5 mg/gram (0.5 %) eye ointment 2024-03 00:00: 00 Yes [id number] Per instruc tions 4 TIMES DAILY Per instructio ns 4 TIMES DAILY (route: ophthalmic (eye)) Med Classific ation: Ophthalmi c Agents albuterol sulfate HFA 90 mcg/actuati on aerosol inhaler 2024-03 00:00: 00 Yes [id number] 2 puff EVERY 6 HOURS 2 puff EVERY 6 HOURS (route: inhalation ) Med Classific ation: Respirato ry Therapy Agents bupropion HCl XL 300 mg 24 hr tablet, extended release 2024-03 00:00: 00 Yes [id number] 1 tablet EVERY AM 1 tablet EVERY AM (route: oral) Med Classific ation: Central Nervous System Agents carbidopa 25 mg-levodopa 100 mg disintegrat ing tablet 2024-03 00:00: 00 Yes [id number] 1.5 tablet NOON 1.5 tablet NOON (route: oral) Med Classific ation: Central Nervous System Agents carbidopa 25 mg-levodopa 100 mg tablet 2024-03 00:00: 00 Yes [id number] 1.5 tablet EVERY AM 1.5 tablet EVERY AM (route: oral) Med Classific ation: Central Nervous System Agents carbidopa 25 mg-levodopa 100 mg tablet 2024-03 00:00: 00 Yes [id number] 1.5 tablet EVERY PM 1.5 tablet EVERY PM (route: oral) Med Classific ation: Central Nervous System Agents carbidopa 25 mg-levodopa 100 mg tablet 2024-03 00:00: 00 Yes [id number] 1.5 tablet BEDTIME 1.5 tablet BEDTIME (route: oral) Med Classific ation: Central Nervous System Agents cyclobenzap rine 10 mg tablet 2024-03 00:00: 00 Yes [id number] 1 tablet BEDTIME 1 tablet BEDTIME (route: oral) Med Classific ation: Locomotor System famotidine 40 mg tablet 2024-03 00:00: 00 Yes [id number] 1 tablet EVERY AM 1 tablet EVERY AM (route: oral) Med Classific ation: Gastroint estinal Therapy Agents meloxicam 15 mg tablet 2024-03 00:00: 00 Yes [id number] 1 tablet EVERY AM 1 tablet EVERY AM (route: oral) Med Classific ation: Analgesic , Anti-infl ammatory or Antipyret ic paroxetine 40 mg tablet 2024-03 00:00: 00 Yes [id number] 1 tablet EVERY AM 1 tablet EVERY AM (route: oral) Med Classific ation: Central Nervous System Agents trazodone 50 mg tablet 2024-03 00:00: 00 Yes [id number] 1 tablet BEDTIME 1 tablet BEDTIME (route: oral) Med Classific ation: Central Nervous System Agents Tylenol Arthritis Pain 650 mg tablet,exte nded release 2024-03 0-23 00:00: 00 Yes [id number] 1 tablet EVERY 8 HOURS 1 tablet EVERY 8 HOURS (route: oral) Med Classific ation: Analgesic , Anti-infl ammatory or Antipyret ic Farxiga 5 mg tablet 2024-03 1-03 00:00: 00 Yes [id number] 1 tablet EVERY AM 1 tablet EVERY [...] AWARENESS FOR SAFETY AND WILL NOTIFY CLINICAL COLLAR SETTER AND PHYSICIAN/PROVIDER WITH ANY CHANGE IN CONDITION. [code = SKILLED NURSE WILL MAINTAIN SITUATIONAL AWARENESS FOR SAFETY AND WILL NOTIFY CLINICAL COLLAR SETTER AND PHYSICIAN/PROVIDER WITH ANY CHANGE IN CONDITION.] [...] CARE WILL BE ESTABLISHED THAT MEETS PATIENT'S MCC NEEDS AND INCLUDES PATIENT GOAL FOR HOME [...] CLEAN AND NEATLY DRESSED IN KITCHEN WITH ACCOUNTING FILE CLERK PRESENT D/T MOUSE PROBLEM. HER HOME IS [...] WITH HER MED PP PER HER MED LORRY WEIGHER AND DENIES ANY ADVERSE EFFECTS.</paragraph> Encounters Start Date/Time End Date/Time Encounter Type Admission Type Attending Clinicians Care Facility Care Department Encounter ID Discharge Date Discharge Status Discharge Condition Discharge Reason Percent Goals Met 2025-01-19 00:00:00 2025-03-19 00:00:00 Outpatient RECERTIFIC ATSNEHAL VELA [facility] [id number] 76.00
--- OUTSIDE RECORDS SUMMARY | 2025-03-18 19:00 | XMS_ITS | Clinical Summary ---
Author Organization Unknown Care Team Providers Care Edge Inker Name Role Phone YAIMA RASMUSSEN, KAVITA BEST Unavailable Unamirella SPEARS RN, SNEHAL Unavailable Unavailable Payers Payer Name Policy Type Policy Number Effective Date Expira tion Date [employer] MEDICARE ADVANTAGE FFS [id number] MEDICARE - [place] - PDGM [id number] Problems Condition Name Condition Details Condition Category [...] 06-25 00:00: 00 12-31 23:59 :00 No [id number] 2 puff DIRECTED 2 puff DIRECTED (route: inhalation ) Med Classific ation: Respirato ry Therapy Agents bupropion HCl XL 300 mg 24 hr tablet, extended release 06-25 00:00: 00 12-31 23:59 :00 No [id number] 1 tablet DAILY 1 tablet DAILY (route: oral) Med Classific ation: Central Nervous System Agents carbidopa 25 mg-levodopa 100 mg tablet 417 00:00: 00 12-31 23:59 :00 No [id number] 1.5 tablet 4 TIMES DAILY 1.5 tablet 4 TIMES DAILY (route: oral) Med Classific ation: Central Nervous System Agents famotidine 40 mg tablet 417 00:00: 00 09-01 23:59 :00 No [id number] 1 tablet DAILY 1 tablet DAILY (route: oral) Med Classific ation: Gastroint estinal Therapy Agents paroxetine 40 mg tablet 17 00:00: 00 12-31 23:59 :00 No [id number] 1 tablet DAILY 1 tablet DAILY (route: oral) Med Classific ation: Central Nervous System Agents trazodone 50 mg tablet 06-25 00:00: 00 09-01 23:59 :00 No [id number] Per instruc tions BEDTIME Per instructio ns BEDTIME (route: oral) Med Classific ation: Central Nervous System Agents gabapentin 100 mg capsule -24 00:00: 00 09-01 23:59 :00 No [id number] pain Per instruc tions BEDTIME Per instructio ns BEDTIME (route: oral) Med Classific ation: Central Nervous System Agents omeprazole 40 mg capsule,del ayed release -24 00:00: 00 05-20 23:59 :00 No [id number] 1 capsule DAILY 1 capsule DAILY (route: oral) Med Classific ation: Gastroint estinal Therapy Agents gabapentin 100 mg capsule 2023-03 0- 00:00: 00 09-01 23:59 :00 No [id number] Per instruc tions 2 TIMES DAILY Per instructio ns 2 TIMES DAILY (route: oral) Med Classific ation: Central Nervous System Agents famotidine 40 mg tablet 3-16 00:00: 00 12-31 23:59 :00 No [id number] 1 tablet EVERY AM 1 tablet EVERY AM (route: oral) Med Classific ation: Gastroint estinal Therapy Agents Tylenol Arthritis Pain 650 mg tablet,exte nded release 3-21 00:00: 00 12-31 23:59 :00 No [id number] 1 tablet EVERY 8 HOURS 1 tablet EVERY 8 HOURS (route: oral) Med Classific ation: Analgesic , Anti-infl ammatory or Antipyret ic cyclobenzap rine 10 mg tablet 08-05 00:00: 00 09-01 23:59 :00 No [id number] 1 tablet BEDTIME 1 tablet BEDTIME (route: oral) Med Classific ation: Locomotor System meloxicam 15 mg tablet 08-05 00:00: 00 09-01 23:59 :00 No [id number] 1 tablet DAILY 1 tablet DAILY (route: oral) Med Classific ation: Analgesic , Anti-infl ammatory or Antipyret ic cyclobenzap rine 10 mg tablet 09-01 00:00: 00 12-31 23:59 :00 No [id number] 1 tablet BEDTIME 1 tablet BEDTIME (route: oral) Med Classific ation: Locomotor System meloxicam 15 mg tablet 09-01 00:00: 00 12-31 23:59 :00 No [id number] 1 tablet EVERY AM 1 tablet EVERY AM (route: oral) Med Classific ation: Analgesic , Anti-infl ammatory or Antipyret ic trazodone 50 mg tablet 09-01 00:00: 00 12-31 23:59 :00 No [id number] Per instruc tions BEDTIME Per instructio ns BEDTIME (route: oral) Med Classific ation: Central Nervous System Agents erythromyci n 5 mg/gram (0.5 %) eye ointment 2024-03 00:00: 00 Yes [id number] Per instruc tions 4 TIMES DAILY Per instructio ns 4 TIMES DAILY (route: ophthalmic (eye)) Med Classific ation: Ophthalmi c Agents albuterol sulfate HFA 90 mcg/actuati on aerosol inhaler 2024-03 00:00: 00 Yes [id number] 2 puff EVERY 6 HOURS 2 puff EVERY 6 HOURS (route: inhalation ) Med Classific ation: Respirato ry Therapy Agents bupropion HCl XL 300 mg 24 hr tablet, extended release 2024-03 00:00: 00 Yes [id number] 1 tablet EVERY AM 1 tablet EVERY AM (route: oral) Med Classific ation: Central Nervous System Agents carbidopa 25 mg-levodopa 100 mg disintegrat ing tablet 2024-03 00:00: 00 Yes [id number] 1.5 tablet NOON 1.5 tablet NOON (route: oral) Med Classific ation: Central Nervous System Agents carbidopa 25 mg-levodopa 100 mg tablet 2024-03 00:00: 00 Yes [id number] 1.5 tablet EVERY AM 1.5 tablet EVERY AM (route: oral) Med Classific ation: Central Nervous System Agents carbidopa 25 mg-levodopa 100 mg tablet 2024-03 00:00: 00 Yes [id number] 1.5 tablet EVERY PM 1.5 tablet EVERY PM (route: oral) Med Classific ation: Central Nervous System Agents carbidopa 25 mg-levodopa 100 mg tablet 2024-03 00:00: 00 Yes [id number] 1.5 tablet BEDTIME 1.5 tablet BEDTIME (route: oral) Med Classific ation: Central Nervous System Agents cyclobenzap rine 10 mg tablet 2024-03 00:00: 00 Yes [id number] 1 tablet BEDTIME 1 tablet BEDTIME (route: oral) Med Classific ation: Locomotor System famotidine 40 mg tablet 2024-03 00:00: 00 Yes [id number] 1 tablet EVERY AM 1 tablet EVERY AM (route: oral) Med Classific ation: Gastroint estinal Therapy Agents meloxicam 15 mg tablet 2024-03 00:00: 00 Yes [id number] 1 tablet EVERY AM 1 tablet EVERY AM (route: oral) Med Classific ation: Analgesic , Anti-infl ammatory or Antipyret ic paroxetine 40 mg tablet 2024-03 00:00: 00 Yes [id number] 1 tablet EVERY AM 1 tablet EVERY AM (route: oral) Med Classific ation: Central Nervous System Agents trazodone 50 mg tablet 2024-03 00:00: 00 Yes [id number] 1 tablet BEDTIME 1 tablet BEDTIME (route: oral) Med Classific ation: Central Nervous System Agents Tylenol Arthritis Pain 650 mg tablet,exte nded release 2024-03 0-23 00:00: 00 Yes [id number] 1 tablet EVERY 8 HOURS 1 tablet EVERY 8 HOURS (route: oral) Med Classific ation: Analgesic , Anti-infl ammatory or Antipyret ic Farxiga 5 mg tablet 2024-03 1-03 00:00: 00 Yes [id number] 1 tablet EVERY AM 1 tablet EVERY [...] AWARENESS FOR SAFETY AND WILL NOTIFY CLINICAL SUPERVISOR OF OPERATIONS AND PHYSICIAN/PROVIDER WITH ANY CHANGE IN CONDITION. [code = SKILLED NURSE WILL MAINTAIN SITUATIONAL AWARENESS FOR SAFETY AND WILL NOTIFY CLINICAL SUPERVISOR OF OPERATIONS AND PHYSICIAN/PROVIDER WITH ANY CHANGE IN CONDITION.] [...] CARE WILL BE ESTABLISHED THAT MEETS PATIENT'S SNF NEEDS AND INCLUDES PATIENT GOAL FOR HOME [...] CLEAN AND NEATLY DRESSED IN KITCHEN WITH LOKIE ENGINEER PRESENT D/T MOUSE PROBLEM. HER HOME IS [...] WITH HER MED PP PER HER MED VIDEO EDITING INTERN AND DENIES ANY ADVERSE EFFECTS.</paragraph> Encounters Start Date/Time End Date/Time Encounter Type Admission Type Attending Clinicians Care Facility Care Department Encounter ID Discharge Date Discharge Status Discharge Condition Discharge Reason Percent Goals Met 2025-01-19 00:00:00 2025-03-19 00:00:00 Outpatient RECERTIFIC ATSNEHAL VELA [facility] [id number] 76.00
--- OUTSIDE RECORDS SUMMARY | 2025-03-18 19:00 | XMS_ITS | Clinical Summary ---
Author Organization Unknown Care Team Providers Care Relief Man Name Role Phone YAIMA RASMUSSEN, KAVITA BEST Unavailable Unamirella SPEARS RN, SNEHAL Unavailable Unavailable Payers Payer Name Policy Type Policy Number Effective Date Expira tion Date [employer] MEDICARE ADVANTAGE FFS [id number] MEDICARE - [place] - PDGM [id number] Problems Condition Name Condition Details Condition Category [...] 06-25 00:00: 00 12-31 23:59 :00 No [id number] 2 puff DIRECTED 2 puff DIRECTED (route: inhalation ) Med Classific ation: Respirato ry Therapy Agents bupropion HCl XL 300 mg 24 hr tablet, extended release 06-25 00:00: 00 12-31 23:59 :00 No [id number] 1 tablet DAILY 1 tablet DAILY (route: oral) Med Classific ation: Central Nervous System Agents carbidopa 25 mg-levodopa 100 mg tablet 417 00:00: 00 12-31 23:59 :00 No [id number] 1.5 tablet 4 TIMES DAILY 1.5 tablet 4 TIMES DAILY (route: oral) Med Classific ation: Central Nervous System Agents famotidine 40 mg tablet 417 00:00: 00 09-01 23:59 :00 No [id number] 1 tablet DAILY 1 tablet DAILY (route: oral) Med Classific ation: Gastroint estinal Therapy Agents paroxetine 40 mg tablet 17 00:00: 00 12-31 23:59 :00 No [id number] 1 tablet DAILY 1 tablet DAILY (route: oral) Med Classific ation: Central Nervous System Agents trazodone 50 mg tablet 06-25 00:00: 00 09-01 23:59 :00 No [id number] Per instruc tions BEDTIME Per instructio ns BEDTIME (route: oral) Med Classific ation: Central Nervous System Agents gabapentin 100 mg capsule -24 00:00: 00 09-01 23:59 :00 No [id number] pain Per instruc tions BEDTIME Per instructio ns BEDTIME (route: oral) Med Classific ation: Central Nervous System Agents omeprazole 40 mg capsule,del ayed release -24 00:00: 00 05-20 23:59 :00 No [id number] 1 capsule DAILY 1 capsule DAILY (route: oral) Med Classific ation: Gastroint estinal Therapy Agents gabapentin 100 mg capsule 2023-03 0- 00:00: 00 09-01 23:59 :00 No [id number] Per instruc tions 2 TIMES DAILY Per instructio ns 2 TIMES DAILY (route: oral) Med Classific ation: Central Nervous System Agents famotidine 40 mg tablet 3-16 00:00: 00 12-31 23:59 :00 No [id number] 1 tablet EVERY AM 1 tablet EVERY AM (route: oral) Med Classific ation: Gastroint estinal Therapy Agents Tylenol Arthritis Pain 650 mg tablet,exte nded release 3-21 00:00: 00 12-31 23:59 :00 No [id number] 1 tablet EVERY 8 HOURS 1 tablet EVERY 8 HOURS (route: oral) Med Classific ation: Analgesic , Anti-infl ammatory or Antipyret ic cyclobenzap rine 10 mg tablet 08-05 00:00: 00 09-01 23:59 :00 No [id number] 1 tablet BEDTIME 1 tablet BEDTIME (route: oral) Med Classific ation: Locomotor System meloxicam 15 mg tablet 08-05 00:00: 00 09-01 23:59 :00 No [id number] 1 tablet DAILY 1 tablet DAILY (route: oral) Med Classific ation: Analgesic , Anti-infl ammatory or Antipyret ic cyclobenzap rine 10 mg tablet 09-01 00:00: 00 12-31 23:59 :00 No [id number] 1 tablet BEDTIME 1 tablet BEDTIME (route: oral) Med Classific ation: Locomotor System meloxicam 15 mg tablet 09-01 00:00: 00 12-31 23:59 :00 No [id number] 1 tablet EVERY AM 1 tablet EVERY AM (route: oral) Med Classific ation: Analgesic , Anti-infl ammatory or Antipyret ic trazodone 50 mg tablet 09-01 00:00: 00 12-31 23:59 :00 No [id number] Per instruc tions BEDTIME Per instructio ns BEDTIME (route: oral) Med Classific ation: Central Nervous System Agents erythromyci n 5 mg/gram (0.5 %) eye ointment 2024-03 00:00: 00 Yes [id number] Per instruc tions 4 TIMES DAILY Per instructio ns 4 TIMES DAILY (route: ophthalmic (eye)) Med Classific ation: Ophthalmi c Agents albuterol sulfate HFA 90 mcg/actuati on aerosol inhaler 2024-03 00:00: 00 Yes [id number] 2 puff EVERY 6 HOURS 2 puff EVERY 6 HOURS (route: inhalation ) Med Classific ation: Respirato ry Therapy Agents bupropion HCl XL 300 mg 24 hr tablet, extended release 2024-03 00:00: 00 Yes [id number] 1 tablet EVERY AM 1 tablet EVERY AM (route: oral) Med Classific ation: Central Nervous System Agents carbidopa 25 mg-levodopa 100 mg disintegrat ing tablet 2024-03 00:00: 00 Yes [id number] 1.5 tablet NOON 1.5 tablet NOON (route: oral) Med Classific ation: Central Nervous System Agents carbidopa 25 mg-levodopa 100 mg tablet 2024-03 00:00: 00 Yes [id number] 1.5 tablet EVERY AM 1.5 tablet EVERY AM (route: oral) Med Classific ation: Central Nervous System Agents carbidopa 25 mg-levodopa 100 mg tablet 2024-03 00:00: 00 Yes [id number] 1.5 tablet EVERY PM 1.5 tablet EVERY PM (route: oral) Med Classific ation: Central Nervous System Agents carbidopa 25 mg-levodopa 100 mg tablet 2024-03 00:00: 00 Yes [id number] 1.5 tablet BEDTIME 1.5 tablet BEDTIME (route: oral) Med Classific ation: Central Nervous System Agents cyclobenzap rine 10 mg tablet 2024-03 00:00: 00 Yes [id number] 1 tablet BEDTIME 1 tablet BEDTIME (route: oral) Med Classific ation: Locomotor System famotidine 40 mg tablet 2024-03 00:00: 00 Yes [id number] 1 tablet EVERY AM 1 tablet EVERY AM (route: oral) Med Classific ation: Gastroint estinal Therapy Agents meloxicam 15 mg tablet 2024-03 00:00: 00 Yes [id number] 1 tablet EVERY AM 1 tablet EVERY AM (route: oral) Med Classific ation: Analgesic , Anti-infl ammatory or Antipyret ic paroxetine 40 mg tablet 2024-03 00:00: 00 Yes [id number] 1 tablet EVERY AM 1 tablet EVERY AM (route: oral) Med Classific ation: Central Nervous System Agents trazodone 50 mg tablet 2024-03 00:00: 00 Yes [id number] 1 tablet BEDTIME 1 tablet BEDTIME (route: oral) Med Classific ation: Central Nervous System Agents Tylenol Arthritis Pain 650 mg tablet,exte nded release 2024-03 0-23 00:00: 00 Yes [id number] 1 tablet EVERY 8 HOURS 1 tablet EVERY 8 HOURS (route: oral) Med Classific ation: Analgesic , Anti-infl ammatory or Antipyret ic Farxiga 5 mg tablet 2024-03 1-03 00:00: 00 Yes [id number] 1 tablet EVERY AM 1 tablet EVERY [...] AWARENESS FOR SAFETY AND WILL NOTIFY CLINICAL JAPANESE INTERPRETER AND PHYSICIAN/PROVIDER WITH ANY CHANGE IN CONDITION. [code = SKILLED NURSE WILL MAINTAIN SITUATIONAL AWARENESS FOR SAFETY AND WILL NOTIFY CLINICAL JAPANESE INTERPRETER AND PHYSICIAN/PROVIDER WITH ANY CHANGE IN CONDITION.] [...] CARE WILL BE ESTABLISHED THAT MEETS PATIENT'S NURSING HOME NEEDS AND INCLUDES PATIENT GOAL FOR [...] CLEAN AND NEATLY DRESSED IN KITCHEN WITH SLIP BRIDGE OPERATOR PRESENT D/T MOUSE PROBLEM. HER HOME [...] WITH HER MED PP PER HER MED SCRAP CARRIER AND DENIES ANY ADVERSE EFFECTS.</paragraph> Encounters Start Date/Time End Date/Time Encounter Type Admission Type Attending Clinicians Care Facility Care Department Encounter ID Discharge Date Discharge Status Discharge Condition Discharge Reason Percent Goals Met 2025-01-19 00:00:00 2025-03-19 00:00:00 Outpatient RECERTIFIC ATSNEHAL VELA [facility] [id number] 76.00
--- OUTSIDE RECORDS SUMMARY | 2025-03-18 19:00 | XMS_ITS | Clinical Summary ---
Author Organization Unknown Care Team Providers Care Crop Farm Helper Name Role Phone YAIMA RASMUSSEN, KAVITA BEST Unavailable Unamirella SPEARS RN, SNEHAL Unavailable Unavailable Payers Payer Name Policy Type Policy Number Effective Date Expira tion Date [employer] MEDICARE ADVANTAGE FFS [id number] MEDICARE - [place] PDGM [id number] Problems Condition Name Condition Details Condition Category [...] 06-25 00:00: 00 12-31 23:59 :00 No [id number] 2 puff DIRECTED 2 puff DIRECTED (route: inhalation ) Med Classific ation: Respirato ry Therapy Agents bupropion HCl XL 300 mg 24 hr tablet, extended release 06-25 00:00: 00 12-31 23:59 :00 No [id number] 1 tablet DAILY 1 tablet DAILY (route: oral) Med Classific ation: Central Nervous System Agents carbidopa 25 mg-levodopa 100 mg tablet 417 00:00: 00 12-31 23:59 :00 No [id number] 1.5 tablet 4 TIMES DAILY 1.5 tablet 4 TIMES DAILY (route: oral) Med Classific ation: Central Nervous System Agents famotidine 40 mg tablet 417 00:00: 00 09-01 23:59 :00 No [id number] 1 tablet DAILY 1 tablet DAILY (route: oral) Med Classific ation: Gastroint estinal Therapy Agents paroxetine 40 mg tablet 17 00:00: 00 12-31 23:59 :00 No [id number] 1 tablet DAILY 1 tablet DAILY (route: oral) Med Classific ation: Central Nervous System Agents trazodone 50 mg tablet 06-25 00:00: 00 09-01 23:59 :00 No [id number] Per instruc tions BEDTIME Per instructio ns BEDTIME (route: oral) Med Classific ation: Central Nervous System Agents gabapentin 100 mg capsule -24 00:00: 00 09-01 23:59 :00 No [id number] pain Per instruc tions BEDTIME Per instructio ns BEDTIME (route: oral) Med Classific ation: Central Nervous System Agents omeprazole 40 mg capsule,del ayed release -24 00:00: 00 05-20 23:59 :00 No [id number] 1 capsule DAILY 1 capsule DAILY (route: oral) Med Classific ation: Gastroint estinal Therapy Agents gabapentin 100 mg capsule 2023-03 0- 00:00: 00 09-01 23:59 :00 No [id number] Per instruc tions 2 TIMES DAILY Per instructio ns 2 TIMES DAILY (route: oral) Med Classific ation: Central Nervous System Agents famotidine 40 mg tablet 3-16 00:00: 00 12-31 23:59 :00 No [id number] 1 tablet EVERY AM 1 tablet EVERY AM (route: oral) Med Classific ation: Gastroint estinal Therapy Agents Tylenol Arthritis Pain 650 mg tablet,exte nded release 3-21 00:00: 00 12-31 23:59 :00 No [id number] 1 tablet EVERY 8 HOURS 1 tablet EVERY 8 HOURS (route: oral) Med Classific ation: Analgesic , Anti-infl ammatory or Antipyret ic cyclobenzap rine 10 mg tablet 08-05 00:00: 00 09-01 23:59 :00 No [id number] 1 tablet BEDTIME 1 tablet BEDTIME (route: oral) Med Classific ation: Locomotor System meloxicam 15 mg tablet 08-05 00:00: 00 09-01 23:59 :00 No [id number] 1 tablet DAILY 1 tablet DAILY (route: oral) Med Classific ation: Analgesic , Anti-infl ammatory or Antipyret ic cyclobenzap rine 10 mg tablet 09-01 00:00: 00 12-31 23:59 :00 No [id number] 1 tablet BEDTIME 1 tablet BEDTIME (route: oral) Med Classific ation: Locomotor System meloxicam 15 mg tablet 09-01 00:00: 00 12-31 23:59 :00 No [id number] 1 tablet EVERY AM 1 tablet EVERY AM (route: oral) Med Classific ation: Analgesic , Anti-infl ammatory or Antipyret ic trazodone 50 mg tablet 09-01 00:00: 00 12-31 23:59 :00 No [id number] Per instruc tions BEDTIME Per instructio ns BEDTIME (route: oral) Med Classific ation: Central Nervous System Agents erythromyci n 5 mg/gram (0.5 %) eye ointment 2024-03 00:00: 00 Yes [id number] Per instruc tions 4 TIMES DAILY Per instructio ns 4 TIMES DAILY (route: ophthalmic (eye)) Med Classific ation: Ophthalmi c Agents albuterol sulfate HFA 90 mcg/actuati on aerosol inhaler 2024-03 00:00: 00 Yes [id number] 2 puff EVERY 6 HOURS 2 puff EVERY 6 HOURS (route: inhalation ) Med Classific ation: Respirato ry Therapy Agents bupropion HCl XL 300 mg 24 hr tablet, extended release 2024-03 00:00: 00 Yes [id number] 1 tablet EVERY AM 1 tablet EVERY AM (route: oral) Med Classific ation: Central Nervous System Agents carbidopa 25 mg-levodopa 100 mg disintegrat ing tablet 2024-03 00:00: 00 Yes [id number] 1.5 tablet NOON 1.5 tablet NOON (route: oral) Med Classific ation: Central Nervous System Agents carbidopa 25 mg-levodopa 100 mg tablet 2024-03 00:00: 00 Yes [id number] 1.5 tablet EVERY AM 1.5 tablet EVERY AM (route: oral) Med Classific ation: Central Nervous System Agents carbidopa 25 mg-levodopa 100 mg tablet 2024-03 00:00: 00 Yes [id number] 1.5 tablet EVERY PM 1.5 tablet EVERY PM (route: oral) Med Classific ation: Central Nervous System Agents carbidopa 25 mg-levodopa 100 mg tablet 2024-03 00:00: 00 Yes [id number] 1.5 tablet BEDTIME 1.5 tablet BEDTIME (route: oral) Med Classific ation: Central Nervous System Agents cyclobenzap rine 10 mg tablet 2024-03 00:00: 00 Yes [id number] 1 tablet BEDTIME 1 tablet BEDTIME (route: oral) Med Classific ation: Locomotor System famotidine 40 mg tablet 2024-03 00:00: 00 Yes [id number] 1 tablet EVERY AM 1 tablet EVERY AM (route: oral) Med Classific ation: Gastroint estinal Therapy Agents meloxicam 15 mg tablet 2024-03 00:00: 00 Yes [id number] 1 tablet EVERY AM 1 tablet EVERY AM (route: oral) Med Classific ation: Analgesic , Anti-infl ammatory or Antipyret ic paroxetine 40 mg tablet 2024-03 00:00: 00 Yes [id number] 1 tablet EVERY AM 1 tablet EVERY AM (route: oral) Med Classific ation: Central Nervous System Agents trazodone 50 mg tablet 2024-03 00:00: 00 Yes [id number] 1 tablet BEDTIME 1 tablet BEDTIME (route: oral) Med Classific ation: Central Nervous System Agents Tylenol Arthritis Pain 650 mg tablet,exte nded release 2024-03 0-23 00:00: 00 Yes [id number] 1 tablet EVERY 8 HOURS 1 tablet EVERY 8 HOURS (route: oral) Med Classific ation: Analgesic , Anti-infl ammatory or Antipyret ic Farxiga 5 mg tablet 2024-03 1-03 00:00: 00 Yes [id number] 1 tablet EVERY AM 1 tablet EVERY [...] AWARENESS FOR SAFETY AND WILL NOTIFY CLINICAL TRAFFIC TECHNICIAN AND PHYSICIAN/PROVIDER WITH ANY CHANGE IN CONDITION. [code = SKILLED NURSE WILL MAINTAIN SITUATIONAL AWARENESS FOR SAFETY AND WILL NOTIFY CLINICAL TRAFFIC TECHNICIAN AND PHYSICIAN/PROVIDER WITH ANY CHANGE IN CONDITION.] [...] CARE WILL BE ESTABLISHED THAT MEETS PATIENT'S PRISON NEEDS AND INCLUDES PATIENT GOAL FOR HOME [...] CLEAN AND NEATLY DRESSED IN KITCHEN WITH NEWSPAPER EDITOR MANAGING PRESENT D/T MOUSE PROBLEM. HER HOME IS [...] WITH HER MED PP PER HER MED AIRPORT ATTENDANT AND DENIES ANY ADVERSE EFFECTS.</paragraph> Encounters Start Date/Time End Date/Time Encounter Type Admission Type Attending Clinicians Care Facility Care Department Encounter ID Discharge Date Discharge Status Discharge Condition Discharge Reason Percent Goals Met 2025-01-19 00:00:00 2025-03-19 00:00:00 Outpatient RECERTIFIC ATSNEHAL VELA [facility] [id number] 76.00
--- OUTSIDE RECORDS SUMMARY | 2025-03-18 19:00 | XMS_ITS | Clinical Summary ---
Author Organization Unknown Care Team Providers Care Manager Payer Name Role Phone YAIMA RASMUSSEN, KAVITA BEST Unavailable Unamirella SPEARS RN, SNEHAL Unavailable Unavailable Payers Payer Name Policy Type Policy Number Effective Date Expira tion Date [employer] MEDICARE ADVANTAGE FFS [id number] MEDICARE - [place] - PDGM [id number] Problems Condition Name Condition Details Condition Category [...] 06-25 00:00: 00 12-31 23:59 :00 No [id number] 2 puff DIRECTED 2 puff DIRECTED (route: inhalation ) Med Classific ation: Respirato ry Therapy Agents bupropion HCl XL 300 mg 24 hr tablet, extended release 06-25 00:00: 00 12-31 23:59 :00 No [id number] 1 tablet DAILY 1 tablet DAILY (route: oral) Med Classific ation: Central Nervous System Agents carbidopa 25 mg-levodopa 100 mg tablet 417 00:00: 00 12-31 23:59 :00 No [id number] 1.5 tablet 4 TIMES DAILY 1.5 tablet 4 TIMES DAILY (route: oral) Med Classific ation: Central Nervous System Agents famotidine 40 mg tablet 417 00:00: 00 09-01 23:59 :00 No [id number] 1 tablet DAILY 1 tablet DAILY (route: oral) Med Classific ation: Gastroint estinal Therapy Agents paroxetine 40 mg tablet 17 00:00: 00 12-31 23:59 :00 No [id number] 1 tablet DAILY 1 tablet DAILY (route: oral) Med Classific ation: Central Nervous System Agents trazodone 50 mg tablet 06-25 00:00: 00 09-01 23:59 :00 No [id number] Per instruc tions BEDTIME Per instructio ns BEDTIME (route: oral) Med Classific ation: Central Nervous System Agents gabapentin 100 mg capsule -24 00:00: 00 09-01 23:59 :00 No [id number] pain Per instruc tions BEDTIME Per instructio ns BEDTIME (route: oral) Med Classific ation: Central Nervous System Agents omeprazole 40 mg capsule,del ayed release -24 00:00: 00 05-20 23:59 :00 No [id number] 1 capsule DAILY 1 capsule DAILY (route: oral) Med Classific ation: Gastroint estinal Therapy Agents gabapentin 100 mg capsule 2023-03 0- 00:00: 00 09-01 23:59 :00 No [id number] Per instruc tions 2 TIMES DAILY Per instructio ns 2 TIMES DAILY (route: oral) Med Classific ation: Central Nervous System Agents famotidine 40 mg tablet 3-16 00:00: 00 12-31 23:59 :00 No [id number] 1 tablet EVERY AM 1 tablet EVERY AM (route: oral) Med Classific ation: Gastroint estinal Therapy Agents Tylenol Arthritis Pain 650 mg tablet,exte nded release 3-21 00:00: 00 12-31 23:59 :00 No [id number] 1 tablet EVERY 8 HOURS 1 tablet EVERY 8 HOURS (route: oral) Med Classific ation: Analgesic , Anti-infl ammatory or Antipyret ic cyclobenzap rine 10 mg tablet 08-05 00:00: 00 09-01 23:59 :00 No [id number] 1 tablet BEDTIME 1 tablet BEDTIME (route: oral) Med Classific ation: Locomotor System meloxicam 15 mg tablet 08-05 00:00: 00 09-01 23:59 :00 No [id number] 1 tablet DAILY 1 tablet DAILY (route: oral) Med Classific ation: Analgesic , Anti-infl ammatory or Antipyret ic cyclobenzap rine 10 mg tablet 09-01 00:00: 00 12-31 23:59 :00 No [id number] 1 tablet BEDTIME 1 tablet BEDTIME (route: oral) Med Classific ation: Locomotor System meloxicam 15 mg tablet 09-01 00:00: 00 12-31 23:59 :00 No [id number] 1 tablet EVERY AM 1 tablet EVERY AM (route: oral) Med Classific ation: Analgesic , Anti-infl ammatory or Antipyret ic trazodone 50 mg tablet 09-01 00:00: 00 12-31 23:59 :00 No [id number] Per instruc tions BEDTIME Per instructio ns BEDTIME (route: oral) Med Classific ation: Central Nervous System Agents erythromyci n 5 mg/gram (0.5 %) eye ointment 2024-03 00:00: 00 Yes [id number] Per instruc tions 4 TIMES DAILY Per instructio ns 4 TIMES DAILY (route: ophthalmic (eye)) Med Classific ation: Ophthalmi c Agents albuterol sulfate HFA 90 mcg/actuati on aerosol inhaler 2024-03 00:00: 00 Yes [id number] 2 puff EVERY 6 HOURS 2 puff EVERY 6 HOURS (route: inhalation ) Med Classific ation: Respirato ry Therapy Agents bupropion HCl XL 300 mg 24 hr tablet, extended release 2024-03 00:00: 00 Yes [id number] 1 tablet EVERY AM 1 tablet EVERY AM (route: oral) Med Classific ation: Central Nervous System Agents carbidopa 25 mg-levodopa 100 mg disintegrat ing tablet 2024-03 00:00: 00 Yes [id number] 1.5 tablet NOON 1.5 tablet NOON (route: oral) Med Classific ation: Central Nervous System Agents carbidopa 25 mg-levodopa 100 mg tablet 2024-03 00:00: 00 Yes [id number] 1.5 tablet EVERY AM 1.5 tablet EVERY AM (route: oral) Med Classific ation: Central Nervous System Agents carbidopa 25 mg-levodopa 100 mg tablet 2024-03 00:00: 00 Yes [id number] 1.5 tablet EVERY PM 1.5 tablet EVERY PM (route: oral) Med Classific ation: Central Nervous System Agents carbidopa 25 mg-levodopa 100 mg tablet 2024-03 00:00: 00 Yes [id number] 1.5 tablet BEDTIME 1.5 tablet BEDTIME (route: oral) Med Classific ation: Central Nervous System Agents cyclobenzap rine 10 mg tablet 2024-03 00:00: 00 Yes [id number] 1 tablet BEDTIME 1 tablet BEDTIME (route: oral) Med Classific ation: Locomotor System famotidine 40 mg tablet 2024-03 00:00: 00 Yes [id number] 1 tablet EVERY AM 1 tablet EVERY AM (route: oral) Med Classific ation: Gastroint estinal Therapy Agents meloxicam 15 mg tablet 2024-03 00:00: 00 Yes [id number] 1 tablet EVERY AM 1 tablet EVERY AM (route: oral) Med Classific ation: Analgesic , Anti-infl ammatory or Antipyret ic paroxetine 40 mg tablet 2024-03 00:00: 00 Yes [id number] 1 tablet EVERY AM 1 tablet EVERY AM (route: oral) Med Classific ation: Central Nervous System Agents trazodone 50 mg tablet 2024-03 00:00: 00 Yes [id number] 1 tablet BEDTIME 1 tablet BEDTIME (route: oral) Med Classific ation: Central Nervous System Agents Tylenol Arthritis Pain 650 mg tablet,exte nded release 2024-03 0-23 00:00: 00 Yes [id number] 1 tablet EVERY 8 HOURS 1 tablet EVERY 8 HOURS (route: oral) Med Classific ation: Analgesic , Anti-infl ammatory or Antipyret ic Farxiga 5 mg tablet 2024-03 1-03 00:00: 00 Yes [id number] 1 tablet EVERY AM 1 tablet EVERY [...] AWARENESS FOR SAFETY AND WILL NOTIFY CLINICAL MANAGER FRONT OFFICE AND PHYSICIAN/PROVIDER WITH ANY CHANGE IN CONDITION. [code = SKILLED NURSE WILL MAINTAIN SITUATIONAL AWARENESS FOR SAFETY AND WILL NOTIFY CLINICAL MANAGER FRONT OFFICE AND PHYSICIAN/PROVIDER WITH ANY CHANGE IN CONDITION.] [...] CLEAN AND NEATLY DRESSED IN KITCHEN WITH HARNESS MENDER PRESENT D/T MOUSE PROBLEM. 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
--- OUTSIDE RECORDS SUMMARY | 2025-03-18 19:00 | XMS_ITS | Clinical Summary ---
Author Organization Unknown Care Team Providers Care Dental Hygienist Mobile Coordinator Name Role Phone YAIMA RASMSUSEN, KAVITA BEST Unavailable Unamirella SPEARS RN, SNEHAL Unavailable Unavailable Payers Payer Name Policy Type Policy Number Effective Date Expira tion Date [employer] MEDICARE ADVANTAGE FFS [id number] MEDICARE - [place] - PDGM [id number] Problems Condition Name Condition Details Condition Category [...] 06-25 00:00: 00 12-31 23:59 :00 No [id number] 2 puff DIRECTED 2 puff DIRECTED (route: inhalation ) Med Classific ation: Respirato ry Therapy Agents bupropion HCl XL 300 mg 24 hr tablet, extended release 06-25 00:00: 00 12-31 23:59 :00 No [id number] 1 tablet DAILY 1 tablet DAILY (route: oral) Med Classific ation: Central Nervous System Agents carbidopa 25 mg-levodopa 100 mg tablet 417 00:00: 00 12-31 23:59 :00 No [id number] 1.5 tablet 4 TIMES DAILY 1.5 tablet 4 TIMES DAILY (route: oral) Med Classific ation: Central Nervous System Agents famotidine 40 mg tablet 417 00:00: 00 09-01 23:59 :00 No [id number] 1 tablet DAILY 1 tablet DAILY (route: oral) Med Classific ation: Gastroint estinal Therapy Agents paroxetine 40 mg tablet 17 00:00: 00 12-31 23:59 :00 No [id number] 1 tablet DAILY 1 tablet DAILY (route: oral) Med Classific ation: Central Nervous System Agents trazodone 50 mg tablet 06-25 00:00: 00 09-01 23:59 :00 No [id number] Per instruc tions BEDTIME Per instructio ns BEDTIME (route: oral) Med Classific ation: Central Nervous System Agents gabapentin 100 mg capsule -24 00:00: 00 09-01 23:59 :00 No [id number] pain Per instruc tions BEDTIME Per instructio ns BEDTIME (route: oral) Med Classific ation: Central Nervous System Agents omeprazole 40 mg capsule,del ayed release -24 00:00: 00 05-20 23:59 :00 No [id number] 1 capsule DAILY 1 capsule DAILY (route: oral) Med Classific ation: Gastroint estinal Therapy Agents gabapentin 100 mg capsule 2023-03 0- 00:00: 00 09-01 23:59 :00 No [id number] Per instruc tions 2 TIMES DAILY Per instructio ns 2 TIMES DAILY (route: oral) Med Classific ation: Central Nervous System Agents famotidine 40 mg tablet 3-16 00:00: 00 12-31 23:59 :00 No [id number] 1 tablet EVERY AM 1 tablet EVERY AM (route: oral) Med Classific ation: Gastroint estinal Therapy Agents Tylenol Arthritis Pain 650 mg tablet,exte nded release 3-21 00:00: 00 12-31 23:59 :00 No [id number] 1 tablet EVERY 8 HOURS 1 tablet EVERY 8 HOURS (route: oral) Med Classific ation: Analgesic , Anti-infl ammatory or Antipyret ic cyclobenzap rine 10 mg tablet 08-05 00:00: 00 09-01 23:59 :00 No [id number] 1 tablet BEDTIME 1 tablet BEDTIME (route: oral) Med Classific ation: Locomotor System meloxicam 15 mg tablet 08-05 00:00: 00 09-01 23:59 :00 No [id number] 1 tablet DAILY 1 tablet DAILY (route: oral) Med Classific ation: Analgesic , Anti-infl ammatory or Antipyret ic cyclobenzap rine 10 mg tablet 09-01 00:00: 00 12-31 23:59 :00 No [id number] 1 tablet BEDTIME 1 tablet BEDTIME (route: oral) Med Classific ation: Locomotor System meloxicam 15 mg tablet 09-01 00:00: 00 12-31 23:59 :00 No [id number] 1 tablet EVERY AM 1 tablet EVERY AM (route: oral) Med Classific ation: Analgesic , Anti-infl ammatory or Antipyret ic trazodone 50 mg tablet 09-01 00:00: 00 12-31 23:59 :00 No [id number] Per instruc tions BEDTIME Per instructio ns BEDTIME (route: oral) Med Classific ation: Central Nervous System Agents erythromyci n 5 mg/gram (0.5 %) eye ointment 2024-03 00:00: 00 Yes [id number] Per instruc tions 4 TIMES DAILY Per instructio ns 4 TIMES DAILY (route: ophthalmic (eye)) Med Classific ation: Ophthalmi c Agents albuterol sulfate HFA 90 mcg/actuati on aerosol inhaler 2024-03 00:00: 00 Yes [id number] 2 puff EVERY 6 HOURS 2 puff EVERY 6 HOURS (route: inhalation ) Med Classific ation: Respirato ry Therapy Agents bupropion HCl XL 300 mg 24 hr tablet, extended release 2024-03 00:00: 00 Yes [id number] 1 tablet EVERY AM 1 tablet EVERY AM (route: oral) Med Classific ation: Central Nervous System Agents carbidopa 25 mg-levodopa 100 mg disintegrat ing tablet 2024-03 00:00: 00 Yes [id number] 1.5 tablet NOON 1.5 tablet NOON (route: oral) Med Classific ation: Central Nervous System Agents carbidopa 25 mg-levodopa 100 mg tablet 2024-03 00:00: 00 Yes [id number] 1.5 tablet EVERY AM 1.5 tablet EVERY AM (route: oral) Med Classific ation: Central Nervous System Agents carbidopa 25 mg-levodopa 100 mg tablet 2024-03 00:00: 00 Yes [id number] 1.5 tablet EVERY PM 1.5 tablet EVERY PM (route: oral) Med Classific ation: Central Nervous System Agents carbidopa 25 mg-levodopa 100 mg tablet 2024-03 00:00: 00 Yes [id number] 1.5 tablet BEDTIME 1.5 tablet BEDTIME (route: oral) Med Classific ation: Central Nervous System Agents cyclobenzap rine 10 mg tablet 2024-03 00:00: 00 Yes [id number] 1 tablet BEDTIME 1 tablet BEDTIME (route: oral) Med Classific ation: Locomotor System famotidine 40 mg tablet 2024-03 00:00: 00 Yes [id number] 1 tablet EVERY AM 1 tablet EVERY AM (route: oral) Med Classific ation: Gastroint estinal Therapy Agents meloxicam 15 mg tablet 2024-03 00:00: 00 Yes [id number] 1 tablet EVERY AM 1 tablet EVERY AM (route: oral) Med Classific ation: Analgesic , Anti-infl ammatory or Antipyret ic paroxetine 40 mg tablet 2024-03 00:00: 00 Yes [id number] 1 tablet EVERY AM 1 tablet EVERY AM (route: oral) Med Classific ation: Central Nervous System Agents trazodone 50 mg tablet 2024-03 00:00: 00 Yes [id number] 1 tablet BEDTIME 1 tablet BEDTIME (route: oral) Med Classific ation: Central Nervous System Agents Tylenol Arthritis Pain 650 mg tablet,exte nded release 2024-03 0-23 00:00: 00 Yes [id number] 1 tablet EVERY 8 HOURS 1 tablet EVERY 8 HOURS (route: oral) Med Classific ation: Analgesic , Anti-infl ammatory or Antipyret ic Farxiga 5 mg tablet 2024-03 1-03 00:00: 00 Yes [id number] 1 tablet EVERY AM 1 tablet EVERY [...] AWARENESS FOR SAFETY AND WILL NOTIFY CLINICAL AMERICAN SIGN LANGUAGE INTERPRETER AND PHYSICIAN/PROVIDER WITH ANY CHANGE IN CONDITION. [code = SKILLED NURSE WILL MAINTAIN SITUATIONAL AWARENESS FOR SAFETY AND WILL NOTIFY CLINICAL AMERICAN SIGN LANGUAGE INTERPRETER AND PHYSICIAN/PROVIDER WITH ANY CHANGE IN [...] CLEAN AND NEATLY DRESSED IN KITCHEN WITH VETERINARY POULTRY INSPECTOR PRESENT D/T MOUSE PROBLEM. HER HOME IS [...] WITH HER MED PP PER HER MED COUNTER PROFESSIONAL AND DENIES ANY ADVERSE EFFECTS.</paragraph> Encounters Start Date/Time End Date/Time Encounter Type Admission Type Attending Clinicians Care Facility Care Department Encounter ID Discharge Date Discharge Status Discharge Condition Discharge Reason Percent Goals Met 2025-01-19 00:00:00 2025-03-19 00:00:00 Outpatient RECERTIFIC ATSNEHAL [facility] [id number] 76.00
--- OUTSIDE RECORDS SUMMARY | 2025-03-18 19:00 | XMS_ITS | Clinical Summary ---
Author Organization Unknown Care Team Providers Care Entrepreneurial Finance Professor Name Role Phone YAIMA RASMUSSEN, KAVITA BEST Unavailable Unamirella SPEARS RN, SNEHAL Unavailable Unavailable Payers Payer Name Policy Type Policy Number Effective Date Expira tion Date [employer] MEDICARE ADVANTAGE FFS [id number] MEDICARE - [place] [id number] Problems Condition Name Condition Details Condition Category [...] 06-25 00:00: 00 12-31 23:59 :00 No [id number] 2 puff DIRECTED 2 puff DIRECTED (route: inhalation ) Med Classific ation: Respirato ry Therapy Agents bupropion HCl XL 300 mg 24 hr tablet, extended release 06-25 00:00: 00 12-31 23:59 :00 No [id number] 1 tablet DAILY 1 tablet DAILY (route: oral) Med Classific ation: Central Nervous System Agents carbidopa 25 mg-levodopa 100 mg tablet 417 00:00: 00 12-31 23:59 :00 No [id number] 1.5 tablet 4 TIMES DAILY 1.5 tablet 4 TIMES DAILY (route: oral) Med Classific ation: Central Nervous System Agents famotidine 40 mg tablet 417 00:00: 00 09-01 23:59 :00 No [id number] 1 tablet DAILY 1 tablet DAILY (route: oral) Med Classific ation: Gastroint estinal Therapy Agents paroxetine 40 mg tablet 17 00:00: 00 12-31 23:59 :00 No [id number] 1 tablet DAILY 1 tablet DAILY (route: oral) Med Classific ation: Central Nervous System Agents trazodone 50 mg tablet 06-25 00:00: 00 09-01 23:59 :00 No [id number] Per instruc tions BEDTIME Per instructio ns BEDTIME (route: oral) Med Classific ation: Central Nervous System Agents gabapentin 100 mg capsule -24 00:00: 00 09-01 23:59 :00 No [id number] pain Per instruc tions BEDTIME Per instructio ns BEDTIME (route: oral) Med Classific ation: Central Nervous System Agents omeprazole 40 mg capsule,del ayed release -24 00:00: 00 05-20 23:59 :00 No [id number] 1 capsule DAILY 1 capsule DAILY (route: oral) Med Classific ation: Gastroint estinal Therapy Agents gabapentin 100 mg capsule 2023-03 0- 00:00: 00 09-01 23:59 :00 No [id number] Per instruc tions 2 TIMES DAILY Per instructio ns 2 TIMES DAILY (route: oral) Med Classific ation: Central Nervous System Agents famotidine 40 mg tablet 3-16 00:00: 00 12-31 23:59 :00 No [id number] 1 tablet EVERY AM 1 tablet EVERY AM (route: oral) Med Classific ation: Gastroint estinal Therapy Agents Tylenol Arthritis Pain 650 mg tablet,exte nded release 3-21 00:00: 00 12-31 23:59 :00 No [id number] 1 tablet EVERY 8 HOURS 1 tablet EVERY 8 HOURS (route: oral) Med Classific ation: Analgesic , Anti-infl ammatory or Antipyret ic cyclobenzap rine 10 mg tablet 08-05 00:00: 00 09-01 23:59 :00 No [id number] 1 tablet BEDTIME 1 tablet BEDTIME (route: oral) Med Classific ation: Locomotor System meloxicam 15 mg tablet 08-05 00:00: 00 09-01 23:59 :00 No [id number] 1 tablet DAILY 1 tablet DAILY (route: oral) Med Classific ation: Analgesic , Anti-infl ammatory or Antipyret ic cyclobenzap rine 10 mg tablet 09-01 00:00: 00 12-31 23:59 :00 No [id number] 1 tablet BEDTIME 1 tablet BEDTIME (route: oral) Med Classific ation: Locomotor System meloxicam 15 mg tablet 09-01 00:00: 00 12-31 23:59 :00 No [id number] 1 tablet EVERY AM 1 tablet EVERY AM (route: oral) Med Classific ation: Analgesic , Anti-infl ammatory or Antipyret ic trazodone 50 mg tablet 09-01 00:00: 00 12-31 23:59 :00 No [id number] Per instruc tions BEDTIME Per instructio ns BEDTIME (route: oral) Med Classific ation: Central Nervous System Agents erythromyci n 5 mg/gram (0.5 %) eye ointment 2024-03 00:00: 00 Yes [id number] Per instruc tions 4 TIMES DAILY Per instructio ns 4 TIMES DAILY (route: ophthalmic (eye)) Med Classific ation: Ophthalmi c Agents albuterol sulfate HFA 90 mcg/actuati on aerosol inhaler 2024-03 00:00: 00 Yes [id number] 2 puff EVERY 6 HOURS 2 puff EVERY 6 HOURS (route: inhalation ) Med Classific ation: Respirato ry Therapy Agents bupropion HCl XL 300 mg 24 hr tablet, extended release 2024-03 00:00: 00 Yes [id number] 1 tablet EVERY AM 1 tablet EVERY AM (route: oral) Med Classific ation: Central Nervous System Agents carbidopa 25 mg-levodopa 100 mg disintegrat ing tablet 2024-03 00:00: 00 Yes [id number] 1.5 tablet NOON 1.5 tablet NOON (route: oral) Med Classific ation: Central Nervous System Agents carbidopa 25 mg-levodopa 100 mg tablet 2024-03 00:00: 00 Yes [id number] 1.5 tablet EVERY AM 1.5 tablet EVERY AM (route: oral) Med Classific ation: Central Nervous System Agents carbidopa 25 mg-levodopa 100 mg tablet 2024-03 00:00: 00 Yes [id number] 1.5 tablet EVERY PM 1.5 tablet EVERY PM (route: oral) Med Classific ation: Central Nervous System Agents carbidopa 25 mg-levodopa 100 mg tablet 2024-03 00:00: 00 Yes [id number] 1.5 tablet BEDTIME 1.5 tablet BEDTIME (route: oral) Med Classific ation: Central Nervous System Agents cyclobenzap rine 10 mg tablet 2024-03 00:00: 00 Yes [id number] 1 tablet BEDTIME 1 tablet BEDTIME (route: oral) Med Classific ation: Locomotor System famotidine 40 mg tablet 2024-03 00:00: 00 Yes [id number] 1 tablet EVERY AM 1 tablet EVERY AM (route: oral) Med Classific ation: Gastroint estinal Therapy Agents meloxicam 15 mg tablet 2024-03 00:00: 00 Yes [id number] 1 tablet EVERY AM 1 tablet EVERY AM (route: oral) Med Classific ation: Analgesic , Anti-infl ammatory or Antipyret ic paroxetine 40 mg tablet 2024-03 00:00: 00 Yes [id number] 1 tablet EVERY AM 1 tablet EVERY AM (route: oral) Med Classific ation: Central Nervous System Agents trazodone 50 mg tablet 2024-03 00:00: 00 Yes [id number] 1 tablet BEDTIME 1 tablet BEDTIME (route: oral) Med Classific ation: Central Nervous System Agents Tylenol Arthritis Pain 650 mg tablet,exte nded release 2024-03 0-23 00:00: 00 Yes [id number] 1 tablet EVERY 8 HOURS 1 tablet EVERY 8 HOURS (route: oral) Med Classific ation: Analgesic , Anti-infl ammatory or Antipyret ic Farxiga 5 mg tablet 2024-03 1-03 00:00: 00 Yes [id number] 1 tablet EVERY AM 1 tablet EVERY [...] AWARENESS FOR SAFETY AND WILL NOTIFY CLINICAL IMPROVEMENT COORDINATOR AND PHYSICIAN/PROVIDER WITH ANY CHANGE IN CONDITION. [code = SKILLED NURSE WILL MAINTAIN SITUATIONAL AWARENESS FOR SAFETY AND WILL NOTIFY CLINICAL IMPROVEMENT COORDINATOR AND PHYSICIAN/PROVIDER WITH ANY CHANGE IN CONDITION.] [...] CARE WILL BE ESTABLISHED THAT MEETS PATIENT'S USP NEEDS AND INCLUDES PATIENT GOAL FOR HOME [...] CLEAN AND NEATLY DRESSED IN KITCHEN WITH TELEVISION NEWS PHOTOGRAPHER PRESENT D/T MOUSE PROBLEM. 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
--- OUTSIDE RECORDS SUMMARY | 2025-03-18 19:00 | XMS_ITS | Clinical Summary ---
Author Organization Unknown Care Team Providers Care Internet And E Business Project Manager Name Role Phone YAIMA RASMUSSEN, KAVITA BEST Unavailable Unamirella SPEARS RN, SNEHAL Unavailable Unavailable Payers Payer Name Policy Type Policy Number Effective Date Expira tion Date [employer] MEDICARE ADVANTAGE FFS [id number] MEDICARE - [place]GM [id number] Problems Condition Name Condition Details Condition Category [...] 06-25 00:00: 00 12-31 23:59 :00 No [id number] 2 puff DIRECTED 2 puff DIRECTED (route: inhalation ) Med Classific ation: Respirato ry Therapy Agents bupropion HCl XL 300 mg 24 hr tablet, extended release 06-25 00:00: 00 12-31 23:59 :00 No [id number] 1 tablet DAILY 1 tablet DAILY (route: oral) Med Classific ation: Central Nervous System Agents carbidopa 25 mg-levodopa 100 mg tablet 417 00:00: 00 12-31 23:59 :00 No [id number] 1.5 tablet 4 TIMES DAILY 1.5 tablet 4 TIMES DAILY (route: oral) Med Classific ation: Central Nervous System Agents famotidine 40 mg tablet 417 00:00: 00 09-01 23:59 :00 No [id number] 1 tablet DAILY 1 tablet DAILY (route: oral) Med Classific ation: Gastroint estinal Therapy Agents paroxetine 40 mg tablet 17 00:00: 00 12-31 23:59 :00 No [id number] 1 tablet DAILY 1 tablet DAILY (route: oral) Med Classific ation: Central Nervous System Agents trazodone 50 mg tablet 06-25 00:00: 00 09-01 23:59 :00 No [id number] Per instruc tions BEDTIME Per instructio ns BEDTIME (route: oral) Med Classific ation: Central Nervous System Agents gabapentin 100 mg capsule -24 00:00: 00 09-01 23:59 :00 No [id number] pain Per instruc tions BEDTIME Per instructio ns BEDTIME (route: oral) Med Classific ation: Central Nervous System Agents omeprazole 40 mg capsule,del ayed release -24 00:00: 00 05-20 23:59 :00 No [id number] 1 capsule DAILY 1 capsule DAILY (route: oral) Med Classific ation: Gastroint estinal Therapy Agents gabapentin 100 mg capsule 2023-03 0- 00:00: 00 09-01 23:59 :00 No [id number] Per instruc tions 2 TIMES DAILY Per instructio ns 2 TIMES DAILY (route: oral) Med Classific ation: Central Nervous System Agents famotidine 40 mg tablet 3-16 00:00: 00 12-31 23:59 :00 No [id number] 1 tablet EVERY AM 1 tablet EVERY AM (route: oral) Med Classific ation: Gastroint estinal Therapy Agents Tylenol Arthritis Pain 650 mg tablet,exte nded release 3-21 00:00: 00 12-31 23:59 :00 No [id number] 1 tablet EVERY 8 HOURS 1 tablet EVERY 8 HOURS (route: oral) Med Classific ation: Analgesic , Anti-infl ammatory or Antipyret ic cyclobenzap rine 10 mg tablet 08-05 00:00: 00 09-01 23:59 :00 No [id number] 1 tablet BEDTIME 1 tablet BEDTIME (route: oral) Med Classific ation: Locomotor System meloxicam 15 mg tablet 08-05 00:00: 00 09-01 23:59 :00 No [id number] 1 tablet DAILY 1 tablet DAILY (route: oral) Med Classific ation: Analgesic , Anti-infl ammatory or Antipyret ic cyclobenzap rine 10 mg tablet 09-01 00:00: 00 12-31 23:59 :00 No [id number] 1 tablet BEDTIME 1 tablet BEDTIME (route: oral) Med Classific ation: Locomotor System meloxicam 15 mg tablet 09-01 00:00: 00 12-31 23:59 :00 No [id number] 1 tablet EVERY AM 1 tablet EVERY AM (route: oral) Med Classific ation: Analgesic , Anti-infl ammatory or Antipyret ic trazodone 50 mg tablet 09-01 00:00: 00 12-31 23:59 :00 No [id number] Per instruc tions BEDTIME Per instructio ns BEDTIME (route: oral) Med Classific ation: Central Nervous System Agents erythromyci n 5 mg/gram (0.5 %) eye ointment 2024-03 00:00: 00 Yes [id number] Per instruc tions 4 TIMES DAILY Per instructio ns 4 TIMES DAILY (route: ophthalmic (eye)) Med Classific ation: Ophthalmi c Agents albuterol sulfate HFA 90 mcg/actuati on aerosol inhaler 2024-03 00:00: 00 Yes [id number] 2 puff EVERY 6 HOURS 2 puff EVERY 6 HOURS (route: inhalation ) Med Classific ation: Respirato ry Therapy Agents bupropion HCl XL 300 mg 24 hr tablet, extended release 2024-03 00:00: 00 Yes [id number] 1 tablet EVERY AM 1 tablet EVERY AM (route: oral) Med Classific ation: Central Nervous System Agents carbidopa 25 mg-levodopa 100 mg disintegrat ing tablet 2024-03 00:00: 00 Yes [id number] 1.5 tablet NOON 1.5 tablet NOON (route: oral) Med Classific ation: Central Nervous System Agents carbidopa 25 mg-levodopa 100 mg tablet 2024-03 00:00: 00 Yes [id number] 1.5 tablet EVERY AM 1.5 tablet EVERY AM (route: oral) Med Classific ation: Central Nervous System Agents carbidopa 25 mg-levodopa 100 mg tablet 2024-03 00:00: 00 Yes [id number] 1.5 tablet EVERY PM 1.5 tablet EVERY PM (route: oral) Med Classific ation: Central Nervous System Agents carbidopa 25 mg-levodopa 100 mg tablet 2024-03 00:00: 00 Yes [id number] 1.5 tablet BEDTIME 1.5 tablet BEDTIME (route: oral) Med Classific ation: Central Nervous System Agents cyclobenzap rine 10 mg tablet 2024-03 00:00: 00 Yes [id number] 1 tablet BEDTIME 1 tablet BEDTIME (route: oral) Med Classific ation: Locomotor System famotidine 40 mg tablet 2024-03 00:00: 00 Yes [id number] 1 tablet EVERY AM 1 tablet EVERY AM (route: oral) Med Classific ation: Gastroint estinal Therapy Agents meloxicam 15 mg tablet 2024-03 00:00: 00 Yes [id number] 1 tablet EVERY AM 1 tablet EVERY AM (route: oral) Med Classific ation: Analgesic , Anti-infl ammatory or Antipyret ic paroxetine 40 mg tablet 2024-03 00:00: 00 Yes [id number] 1 tablet EVERY AM 1 tablet EVERY AM (route: oral) Med Classific ation: Central Nervous System Agents trazodone 50 mg tablet 2024-03 00:00: 00 Yes [id number] 1 tablet BEDTIME 1 tablet BEDTIME (route: oral) Med Classific ation: Central Nervous System Agents Tylenol Arthritis Pain 650 mg tablet,exte nded release 2024-03 0-23 00:00: 00 Yes [id number] 1 tablet EVERY 8 HOURS 1 tablet EVERY 8 HOURS (route: oral) Med Classific ation: Analgesic , Anti-infl ammatory or Antipyret ic Farxiga 5 mg tablet 2024-03 1-03 00:00: 00 Yes [id number] 1 tablet EVERY AM 1 tablet EVERY [...] AWARENESS FOR SAFETY AND WILL NOTIFY CLINICAL BASKET SORTER AND PHYSICIAN/PROVIDER WITH ANY CHANGE IN CONDITION. [code = SKILLED NURSE WILL MAINTAIN SITUATIONAL AWARENESS FOR SAFETY AND WILL NOTIFY CLINICAL BASKET SORTER AND PHYSICIAN/PROVIDER WITH ANY CHANGE IN CONDITION.] [...] CLEAN AND NEATLY DRESSED IN KITCHEN WITH ARCHITECTURAL DRAFTING INSTRUCTOR PRESENT D/T MOUSE PROBLEM. 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
--- OUTSIDE RECORDS SUMMARY | 2025-03-18 19:00 | XMS_ITS | Clinical Summary ---
Author Organization Unknown Care Team Providers Care Accounting Manager Cpa Name Role Phone YAIMA RASMUSSEN, KAVITA BEST Unavailable Unamirella SPEARS RN, SNEHAL Unavailable Unavailable Payers Payer Name Policy Type Policy Number Effective Date Expira tion Date [employer] MEDICARE ADVANTAGE FFS [id number] MEDICARE - [place] - PDGM [id number] Problems Condition Name Condition Details Condition Category [...] 06-25 00:00: 00 12-31 23:59 :00 No [id number] 2 puff DIRECTED 2 puff DIRECTED (route: inhalation ) Med Classific ation: Respirato ry Therapy Agents bupropion HCl XL 300 mg 24 hr tablet, extended release 06-25 00:00: 00 12-31 23:59 :00 No [id number] 1 tablet DAILY 1 tablet DAILY (route: oral) Med Classific ation: Central Nervous System Agents carbidopa 25 mg-levodopa 100 mg tablet 417 00:00: 00 12-31 23:59 :00 No [id number] 1.5 tablet 4 TIMES DAILY 1.5 tablet 4 TIMES DAILY (route: oral) Med Classific ation: Central Nervous System Agents famotidine 40 mg tablet 417 00:00: 00 09-01 23:59 :00 No [id number] 1 tablet DAILY 1 tablet DAILY (route: oral) Med Classific ation: Gastroint estinal Therapy Agents paroxetine 40 mg tablet 17 00:00: 00 12-31 23:59 :00 No [id number] 1 tablet DAILY 1 tablet DAILY (route: oral) Med Classific ation: Central Nervous System Agents trazodone 50 mg tablet 06-25 00:00: 00 09-01 23:59 :00 No [id number] Per instruc tions BEDTIME Per instructio ns BEDTIME (route: oral) Med Classific ation: Central Nervous System Agents gabapentin 100 mg capsule -24 00:00: 00 09-01 23:59 :00 No [id number] pain Per instruc tions BEDTIME Per instructio ns BEDTIME (route: oral) Med Classific ation: Central Nervous System Agents omeprazole 40 mg capsule,del ayed release -24 00:00: 00 05-20 23:59 :00 No [id number] 1 capsule DAILY 1 capsule DAILY (route: oral) Med Classific ation: Gastroint estinal Therapy Agents gabapentin 100 mg capsule 2023-03 0- 00:00: 00 09-01 23:59 :00 No [id number] Per instruc tions 2 TIMES DAILY Per instructio ns 2 TIMES DAILY (route: oral) Med Classific ation: Central Nervous System Agents famotidine 40 mg tablet 3-16 00:00: 00 12-31 23:59 :00 No [id number] 1 tablet EVERY AM 1 tablet EVERY AM (route: oral) Med Classific ation: Gastroint estinal Therapy Agents Tylenol Arthritis Pain 650 mg tablet,exte nded release 3-21 00:00: 00 12-31 23:59 :00 No [id number] 1 tablet EVERY 8 HOURS 1 tablet EVERY 8 HOURS (route: oral) Med Classific ation: Analgesic , Anti-infl ammatory or Antipyret ic cyclobenzap rine 10 mg tablet 08-05 00:00: 00 09-01 23:59 :00 No [id number] 1 tablet BEDTIME 1 tablet BEDTIME (route: oral) Med Classific ation: Locomotor System meloxicam 15 mg tablet 08-05 00:00: 00 09-01 23:59 :00 No [id number] 1 tablet DAILY 1 tablet DAILY (route: oral) Med Classific ation: Analgesic , Anti-infl ammatory or Antipyret ic cyclobenzap rine 10 mg tablet 09-01 00:00: 00 12-31 23:59 :00 No [id number] 1 tablet BEDTIME 1 tablet BEDTIME (route: oral) Med Classific ation: Locomotor System meloxicam 15 mg tablet 09-01 00:00: 00 12-31 23:59 :00 No [id number] 1 tablet EVERY AM 1 tablet EVERY AM (route: oral) Med Classific ation: Analgesic , Anti-infl ammatory or Antipyret ic trazodone 50 mg tablet 09-01 00:00: 00 12-31 23:59 :00 No [id number] Per instruc tions BEDTIME Per instructio ns BEDTIME (route: oral) Med Classific ation: Central Nervous System Agents erythromyci n 5 mg/gram (0.5 %) eye ointment 2024-03 00:00: 00 Yes [id number] Per instruc tions 4 TIMES DAILY Per instructio ns 4 TIMES DAILY (route: ophthalmic (eye)) Med Classific ation: Ophthalmi c Agents albuterol sulfate HFA 90 mcg/actuati on aerosol inhaler 2024-03 00:00: 00 Yes [id number] 2 puff EVERY 6 HOURS 2 puff EVERY 6 HOURS (route: inhalation ) Med Classific ation: Respirato ry Therapy Agents bupropion HCl XL 300 mg 24 hr tablet, extended release 2024-03 00:00: 00 Yes [id number] 1 tablet EVERY AM 1 tablet EVERY AM (route: oral) Med Classific ation: Central Nervous System Agents carbidopa 25 mg-levodopa 100 mg disintegrat ing tablet 2024-03 00:00: 00 Yes [id number] 1.5 tablet NOON 1.5 tablet NOON (route: oral) Med Classific ation: Central Nervous System Agents carbidopa 25 mg-levodopa 100 mg tablet 2024-03 00:00: 00 Yes [id number] 1.5 tablet EVERY AM 1.5 tablet EVERY AM (route: oral) Med Classific ation: Central Nervous System Agents carbidopa 25 mg-levodopa 100 mg tablet 2024-03 00:00: 00 Yes [id number] 1.5 tablet EVERY PM 1.5 tablet EVERY PM (route: oral) Med Classific ation: Central Nervous System Agents carbidopa 25 mg-levodopa 100 mg tablet 2024-03 00:00: 00 Yes [id number] 1.5 tablet BEDTIME 1.5 tablet BEDTIME (route: oral) Med Classific ation: Central Nervous System Agents cyclobenzap rine 10 mg tablet 2024-03 00:00: 00 Yes [id number] 1 tablet BEDTIME 1 tablet BEDTIME (route: oral) Med Classific ation: Locomotor System famotidine 40 mg tablet 2024-03 00:00: 00 Yes [id number] 1 tablet EVERY AM 1 tablet EVERY AM (route: oral) Med Classific ation: Gastroint estinal Therapy Agents meloxicam 15 mg tablet 2024-03 00:00: 00 Yes [id number] 1 tablet EVERY AM 1 tablet EVERY AM (route: oral) Med Classific ation: Analgesic , Anti-infl ammatory or Antipyret ic paroxetine 40 mg tablet 2024-03 00:00: 00 Yes [id number] 1 tablet EVERY AM 1 tablet EVERY AM (route: oral) Med Classific ation: Central Nervous System Agents trazodone 50 mg tablet 2024-03 00:00: 00 Yes [id number] 1 tablet BEDTIME 1 tablet BEDTIME (route: oral) Med Classific ation: Central Nervous System Agents Tylenol Arthritis Pain 650 mg tablet,exte nded release 2024-03 0-23 00:00: 00 Yes [id number] 1 tablet EVERY 8 HOURS 1 tablet EVERY 8 HOURS (route: oral) Med Classific ation: Analgesic , Anti-infl ammatory or Antipyret ic Farxiga 5 mg tablet 2024-03 1-03 00:00: 00 Yes [id number] 1 tablet EVERY AM 1 tablet EVERY [...] AWARENESS FOR SAFETY AND WILL NOTIFY CLINICAL REMOTE SENSING SCIENTIST AND PHYSICIAN/PROVIDER WITH ANY CHANGE IN CONDITION. [code = SKILLED NURSE WILL MAINTAIN SITUATIONAL AWARENESS FOR SAFETY AND WILL NOTIFY CLINICAL REMOTE SENSING SCIENTIST AND PHYSICIAN/PROVIDER WITH ANY CHANGE IN CONDITION.] [...] CLEAN AND NEATLY DRESSED IN KITCHEN WITH BORING MILL OPERATOR FOR METAL PRESENT D/T MOUSE PROBLEM. HER HOME IS [...] WITH HER MED PP PER HER MED FEEDER TENDER AND DENIES ANY ADVERSE EFFECTS.</paragraph> Encounters Start Date/Time End Date/Time Encounter Type Admission Type Attending Clinicians Care Facility Care Department Encounter ID Discharge Date Discharge Status Discharge Condition Discharge Reason Percent Goals Met 2025-01-19 00:00:00 2025-03-19 00:00:00 Outpatient RECERTIFIC ATSNEHAL VELA [facility] [id number] 76.00
--- OUTSIDE RECORDS SUMMARY | 2025-03-18 19:00 | XMS_ITS | Clinical Summary ---
Author Organization Unknown Care Team Providers Care Auto Bench Mechanic Name Role Phone YAIMA RASMUSSEN, KAVITA BEST Unavailable Unamirella SPEARS RN, SNEHAL Unavailable Unavailable Payers Payer Name Policy Type Policy Number Effective Date Expira tion Date [employer] MEDICARE ADVANTAGE FFS [id number] MEDICARE - [place] PDGM [id number] Problems Condition Name Condition Details Condition Category [...] 06-25 00:00: 00 12-31 23:59 :00 No [id number] 2 puff DIRECTED 2 puff DIRECTED (route: inhalation ) Med Classific ation: Respirato ry Therapy Agents bupropion HCl XL 300 mg 24 hr tablet, extended release 06-25 00:00: 00 12-31 23:59 :00 No [id number] 1 tablet DAILY 1 tablet DAILY (route: oral) Med Classific ation: Central Nervous System Agents carbidopa 25 mg-levodopa 100 mg tablet 417 00:00: 00 12-31 23:59 :00 No [id number] 1.5 tablet 4 TIMES DAILY 1.5 tablet 4 TIMES DAILY (route: oral) Med Classific ation: Central Nervous System Agents famotidine 40 mg tablet 417 00:00: 00 09-01 23:59 :00 No [id number] 1 tablet DAILY 1 tablet DAILY (route: oral) Med Classific ation: Gastroint estinal Therapy Agents paroxetine 40 mg tablet 17 00:00: 00 12-31 23:59 :00 No [id number] 1 tablet DAILY 1 tablet DAILY (route: oral) Med Classific ation: Central Nervous System Agents trazodone 50 mg tablet 06-25 00:00: 00 09-01 23:59 :00 No [id number] Per instruc tions BEDTIME Per instructio ns BEDTIME (route: oral) Med Classific ation: Central Nervous System Agents gabapentin 100 mg capsule -24 00:00: 00 09-01 23:59 :00 No [id number] pain Per instruc tions BEDTIME Per instructio ns BEDTIME (route: oral) Med Classific ation: Central Nervous System Agents omeprazole 40 mg capsule,del ayed release -24 00:00: 00 05-20 23:59 :00 No [id number] 1 capsule DAILY 1 capsule DAILY (route: oral) Med Classific ation: Gastroint estinal Therapy Agents gabapentin 100 mg capsule 2023-03 0- 00:00: 00 09-01 23:59 :00 No [id number] Per instruc tions 2 TIMES DAILY Per instructio ns 2 TIMES DAILY (route: oral) Med Classific ation: Central Nervous System Agents famotidine 40 mg tablet 3-16 00:00: 00 12-31 23:59 :00 No [id number] 1 tablet EVERY AM 1 tablet EVERY AM (route: oral) Med Classific ation: Gastroint estinal Therapy Agents Tylenol Arthritis Pain 650 mg tablet,exte nded release 3-21 00:00: 00 12-31 23:59 :00 No [id number] 1 tablet EVERY 8 HOURS 1 tablet EVERY 8 HOURS (route: oral) Med Classific ation: Analgesic , Anti-infl ammatory or Antipyret ic cyclobenzap rine 10 mg tablet 08-05 00:00: 00 09-01 23:59 :00 No [id number] 1 tablet BEDTIME 1 tablet BEDTIME (route: oral) Med Classific ation: Locomotor System meloxicam 15 mg tablet 08-05 00:00: 00 09-01 23:59 :00 No [id number] 1 tablet DAILY 1 tablet DAILY (route: oral) Med Classific ation: Analgesic , Anti-infl ammatory or Antipyret ic cyclobenzap rine 10 mg tablet 09-01 00:00: 00 12-31 23:59 :00 No [id number] 1 tablet BEDTIME 1 tablet BEDTIME (route: oral) Med Classific ation: Locomotor System meloxicam 15 mg tablet 09-01 00:00: 00 12-31 23:59 :00 No [id number] 1 tablet EVERY AM 1 tablet EVERY AM (route: oral) Med Classific ation: Analgesic , Anti-infl ammatory or Antipyret ic trazodone 50 mg tablet 09-01 00:00: 00 12-31 23:59 :00 No [id number] Per instruc tions BEDTIME Per instructio ns BEDTIME (route: oral) Med Classific ation: Central Nervous System Agents erythromyci n 5 mg/gram (0.5 %) eye ointment 2024-03 00:00: 00 Yes [id number] Per instruc tions 4 TIMES DAILY Per instructio ns 4 TIMES DAILY (route: ophthalmic (eye)) Med Classific ation: Ophthalmi c Agents albuterol sulfate HFA 90 mcg/actuati on aerosol inhaler 2024-03 00:00: 00 Yes [id number] 2 puff EVERY 6 HOURS 2 puff EVERY 6 HOURS (route: inhalation ) Med Classific ation: Respirato ry Therapy Agents bupropion HCl XL 300 mg 24 hr tablet, extended release 2024-03 00:00: 00 Yes [id number] 1 tablet EVERY AM 1 tablet EVERY AM (route: oral) Med Classific ation: Central Nervous System Agents carbidopa 25 mg-levodopa 100 mg disintegrat ing tablet 2024-03 00:00: 00 Yes [id number] 1.5 tablet NOON 1.5 tablet NOON (route: oral) Med Classific ation: Central Nervous System Agents carbidopa 25 mg-levodopa 100 mg tablet 2024-03 00:00: 00 Yes [id number] 1.5 tablet EVERY AM 1.5 tablet EVERY AM (route: oral) Med Classific ation: Central Nervous System Agents carbidopa 25 mg-levodopa 100 mg tablet 2024-03 00:00: 00 Yes [id number] 1.5 tablet EVERY PM 1.5 tablet EVERY PM (route: oral) Med Classific ation: Central Nervous System Agents carbidopa 25 mg-levodopa 100 mg tablet 2024-03 00:00: 00 Yes [id number] 1.5 tablet BEDTIME 1.5 tablet BEDTIME (route: oral) Med Classific ation: Central Nervous System Agents cyclobenzap rine 10 mg tablet 2024-03 00:00: 00 Yes [id number] 1 tablet BEDTIME 1 tablet BEDTIME (route: oral) Med Classific ation: Locomotor System famotidine 40 mg tablet 2024-03 00:00: 00 Yes [id number] 1 tablet EVERY AM 1 tablet EVERY AM (route: oral) Med Classific ation: Gastroint estinal Therapy Agents meloxicam 15 mg tablet 2024-03 00:00: 00 Yes [id number] 1 tablet EVERY AM 1 tablet EVERY AM (route: oral) Med Classific ation: Analgesic , Anti-infl ammatory or Antipyret ic paroxetine 40 mg tablet 2024-03 00:00: 00 Yes [id number] 1 tablet EVERY AM 1 tablet EVERY AM (route: oral) Med Classific ation: Central Nervous System Agents trazodone 50 mg tablet 2024-03 00:00: 00 Yes [id number] 1 tablet BEDTIME 1 tablet BEDTIME (route: oral) Med Classific ation: Central Nervous System Agents Tylenol Arthritis Pain 650 mg tablet,exte nded release 2024-03 0-23 00:00: 00 Yes [id number] 1 tablet EVERY 8 HOURS 1 tablet EVERY 8 HOURS (route: oral) Med Classific ation: Analgesic , Anti-infl ammatory or Antipyret ic Farxiga 5 mg tablet 2024-03 1-03 00:00: 00 Yes [id number] 1 tablet EVERY AM 1 tablet EVERY [...] AWARENESS FOR SAFETY AND WILL NOTIFY CLINICAL PARAMEDIC SUPERVISOR AND PHYSICIAN/PROVIDER WITH ANY CHANGE IN CONDITION. [code = SKILLED NURSE WILL MAINTAIN SITUATIONAL AWARENESS FOR SAFETY AND WILL NOTIFY CLINICAL PARAMEDIC SUPERVISOR AND PHYSICIAN/PROVIDER WITH ANY CHANGE IN CONDITION.] [...] CARE WILL BE ESTABLISHED THAT MEETS PATIENT'S JAIL NEEDS AND INCLUDES PATIENT GOAL FOR HOME [...] CLEAN AND NEATLY DRESSED IN KITCHEN WITH BIOPROCESS ENGINEER PRESENT D/T MOUSE PROBLEM. HER HOME [...] WITH HER MED PP PER HER MED MUSIC THERAPIST [employer] AND DENIES ANY ADVERSE EFFECTS.</paragraph> Encounters Start Date/Time End Date/Time Encounter Type Admission Type Attending Clinicians Care Facility Care Department Encounter ID Discharge Date Discharge Status Discharge Condition Discharge Reason Percent Goals Met 2025-01-19 00:00:00 2025-03-19 00:00:00 Outpatient RECERTIFIC ATSNEHAL VELA [facility] [id number] 76.00
--- OUTSIDE RECORDS SUMMARY | 2025-03-18 19:00 | XMS_ITS | Clinical Summary ---
Author Organization Unknown Care Team Providers Care Towboat Engineer Name Role Phone YAIMA RASMUSSEN, KAVITA BEST Unavailable Unamirella SPEARS RN, SNEHAL Unavailable Unavailable Payers Payer Name Policy Type Policy Number Effective Date Expira tion Date [employer] MEDICARE ADVANTAGE FFS [id number] MEDICARE - [place] - PDGM [id number] Problems Condition Name Condition Details Condition Category [...] 06-25 00:00: 00 12-31 23:59 :00 No [id number] 2 puff DIRECTED 2 puff DIRECTED (route: inhalation ) Med Classific ation: Respirato ry Therapy Agents bupropion HCl XL 300 mg 24 hr tablet, extended release 06-25 00:00: 00 12-31 23:59 :00 No [id number] 1 tablet DAILY 1 tablet DAILY (route: oral) Med Classific ation: Central Nervous System Agents carbidopa 25 mg-levodopa 100 mg tablet 417 00:00: 00 12-31 23:59 :00 No [id number] 1.5 tablet 4 TIMES DAILY 1.5 tablet 4 TIMES DAILY (route: oral) Med Classific ation: Central Nervous System Agents famotidine 40 mg tablet 417 00:00: 00 09-01 23:59 :00 No [id number] 1 tablet DAILY 1 tablet DAILY (route: oral) Med Classific ation: Gastroint estinal Therapy Agents paroxetine 40 mg tablet 17 00:00: 00 12-31 23:59 :00 No [id number] 1 tablet DAILY 1 tablet DAILY (route: oral) Med Classific ation: Central Nervous System Agents trazodone 50 mg tablet 06-25 00:00: 00 09-01 23:59 :00 No [id number] Per instruc tions BEDTIME Per instructio ns BEDTIME (route: oral) Med Classific ation: Central Nervous System Agents gabapentin 100 mg capsule -24 00:00: 00 09-01 23:59 :00 No [id number] pain Per instruc tions BEDTIME Per instructio ns BEDTIME (route: oral) Med Classific ation: Central Nervous System Agents omeprazole 40 mg capsule,del ayed release -24 00:00: 00 05-20 23:59 :00 No [id number] 1 capsule DAILY 1 capsule DAILY (route: oral) Med Classific ation: Gastroint estinal Therapy Agents gabapentin 100 mg capsule 2023-03 0- 00:00: 00 09-01 23:59 :00 No [id number] Per instruc tions 2 TIMES DAILY Per instructio ns 2 TIMES DAILY (route: oral) Med Classific ation: Central Nervous System Agents famotidine 40 mg tablet 3-16 00:00: 00 12-31 23:59 :00 No [id number] 1 tablet EVERY AM 1 tablet EVERY AM (route: oral) Med Classific ation: Gastroint estinal Therapy Agents Tylenol Arthritis Pain 650 mg tablet,exte nded release 3-21 00:00: 00 12-31 23:59 :00 No [id number] 1 tablet EVERY 8 HOURS 1 tablet EVERY 8 HOURS (route: oral) Med Classific ation: Analgesic , Anti-infl ammatory or Antipyret ic cyclobenzap rine 10 mg tablet 08-05 00:00: 00 09-01 23:59 :00 No [id number] 1 tablet BEDTIME 1 tablet BEDTIME (route: oral) Med Classific ation: Locomotor System meloxicam 15 mg tablet 08-05 00:00: 00 09-01 23:59 :00 No [id number] 1 tablet DAILY 1 tablet DAILY (route: oral) Med Classific ation: Analgesic , Anti-infl ammatory or Antipyret ic cyclobenzap rine 10 mg tablet 09-01 00:00: 00 12-31 23:59 :00 No [id number] 1 tablet BEDTIME 1 tablet BEDTIME (route: oral) Med Classific ation: Locomotor System meloxicam 15 mg tablet 09-01 00:00: 00 12-31 23:59 :00 No [id number] 1 tablet EVERY AM 1 tablet EVERY AM (route: oral) Med Classific ation: Analgesic , Anti-infl ammatory or Antipyret ic trazodone 50 mg tablet 09-01 00:00: 00 12-31 23:59 :00 No [id number] Per instruc tions BEDTIME Per instructio ns BEDTIME (route: oral) Med Classific ation: Central Nervous System Agents erythromyci n 5 mg/gram (0.5 %) eye ointment 2024-03 00:00: 00 Yes [id number] Per instruc tions 4 TIMES DAILY Per instructio ns 4 TIMES DAILY (route: ophthalmic (eye)) Med Classific ation: Ophthalmi c Agents albuterol sulfate HFA 90 mcg/actuati on aerosol inhaler 2024-03 00:00: 00 Yes [id number] 2 puff EVERY 6 HOURS 2 puff EVERY 6 HOURS (route: inhalation ) Med Classific ation: Respirato ry Therapy Agents bupropion HCl XL 300 mg 24 hr tablet, extended release 2024-03 00:00: 00 Yes [id number] 1 tablet EVERY AM 1 tablet EVERY AM (route: oral) Med Classific ation: Central Nervous System Agents carbidopa 25 mg-levodopa 100 mg disintegrat ing tablet 2024-03 00:00: 00 Yes [id number] 1.5 tablet NOON 1.5 tablet NOON (route: oral) Med Classific ation: Central Nervous System Agents carbidopa 25 mg-levodopa 100 mg tablet 2024-03 00:00: 00 Yes [id number] 1.5 tablet EVERY AM 1.5 tablet EVERY AM (route: oral) Med Classific ation: Central Nervous System Agents carbidopa 25 mg-levodopa 100 mg tablet 2024-03 00:00: 00 Yes [id number] 1.5 tablet EVERY PM 1.5 tablet EVERY PM (route: oral) Med Classific ation: Central Nervous System Agents carbidopa 25 mg-levodopa 100 mg tablet 2024-03 00:00: 00 Yes [id number] 1.5 tablet BEDTIME 1.5 tablet BEDTIME (route: oral) Med Classific ation: Central Nervous System Agents cyclobenzap rine 10 mg tablet 2024-03 00:00: 00 Yes [id number] 1 tablet BEDTIME 1 tablet BEDTIME (route: oral) Med Classific ation: Locomotor System famotidine 40 mg tablet 2024-03 00:00: 00 Yes [id number] 1 tablet EVERY AM 1 tablet EVERY AM (route: oral) Med Classific ation: Gastroint estinal Therapy Agents meloxicam 15 mg tablet 2024-03 00:00: 00 Yes [id number] 1 tablet EVERY AM 1 tablet EVERY AM (route: oral) Med Classific ation: Analgesic , Anti-infl ammatory or Antipyret ic paroxetine 40 mg tablet 2024-03 00:00: 00 Yes [id number] 1 tablet EVERY AM 1 tablet EVERY AM (route: oral) Med Classific ation: Central Nervous System Agents trazodone 50 mg tablet 2024-03 00:00: 00 Yes [id number] 1 tablet BEDTIME 1 tablet BEDTIME (route: oral) Med Classific ation: Central Nervous System Agents Tylenol Arthritis Pain 650 mg tablet,exte nded release 2024-03 0-23 00:00: 00 Yes [id number] 1 tablet EVERY 8 HOURS 1 tablet EVERY 8 HOURS (route: oral) Med Classific ation: Analgesic , Anti-infl ammatory or Antipyret ic Farxiga 5 mg tablet 2024-03 1-03 00:00: 00 Yes [id number] 1 tablet EVERY AM 1 tablet EVERY [...] AWARENESS FOR SAFETY AND WILL NOTIFY CLINICAL CHIEF CLERK AND PHYSICIAN/PROVIDER WITH ANY CHANGE IN CONDITION. 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
--- OUTSIDE RECORDS SUMMARY | 2025-03-18 19:00 | XMS_ITS | Clinical Summary ---
Author Organization Unknown Care Team Providers Care Certified Phlebotomy Technician Name Role Phone YAIMA RASMUSSEN, KAVITA BEST Unavailable Unamirella SPEARS RN, SNEHAL Unavailable Unavailable Payers Payer Name Policy Type Policy Number Effective Date Expira tion Date [employer] MEDICARE ADVANTAGE FFS [id number] MEDICARE - [place] - PDGM [id number] Problems Condition Name Condition Details Condition Category [...] 06-25 00:00: 00 12-31 23:59 :00 No [id number] 2 puff DIRECTED 2 puff DIRECTED (route: inhalation ) Med Classific ation: Respirato ry Therapy Agents bupropion HCl XL 300 mg 24 hr tablet, extended release 06-25 00:00: 00 12-31 23:59 :00 No [id number] 1 tablet DAILY 1 tablet DAILY (route: oral) Med Classific ation: Central Nervous System Agents carbidopa 25 mg-levodopa 100 mg tablet 417 00:00: 00 12-31 23:59 :00 No [id number] 1.5 tablet 4 TIMES DAILY 1.5 tablet 4 TIMES DAILY (route: oral) Med Classific ation: Central Nervous System Agents famotidine 40 mg tablet 417 00:00: 00 09-01 23:59 :00 No [id number] 1 tablet DAILY 1 tablet DAILY (route: oral) Med Classific ation: Gastroint estinal Therapy Agents paroxetine 40 mg tablet 17 00:00: 00 12-31 23:59 :00 No [id number] 1 tablet DAILY 1 tablet DAILY (route: oral) Med Classific ation: Central Nervous System Agents trazodone 50 mg tablet 06-25 00:00: 00 09-01 23:59 :00 No [id number] Per instruc tions BEDTIME Per instructio ns BEDTIME (route: oral) Med Classific ation: Central Nervous System Agents gabapentin 100 mg capsule -24 00:00: 00 09-01 23:59 :00 No [id number] pain Per instruc tions BEDTIME Per instructio ns BEDTIME (route: oral) Med Classific ation: Central Nervous System Agents omeprazole 40 mg capsule,del ayed release -24 00:00: 00 05-20 23:59 :00 No [id number] 1 capsule DAILY 1 capsule DAILY (route: oral) Med Classific ation: Gastroint estinal Therapy Agents gabapentin 100 mg capsule 2023-03 0- 00:00: 00 09-01 23:59 :00 No [id number] Per instruc tions 2 TIMES DAILY Per instructio ns 2 TIMES DAILY (route: oral) Med Classific ation: Central Nervous System Agents famotidine 40 mg tablet 3-16 00:00: 00 12-31 23:59 :00 No [id number] 1 tablet EVERY AM 1 tablet EVERY AM (route: oral) Med Classific ation: Gastroint estinal Therapy Agents Tylenol Arthritis Pain 650 mg tablet,exte nded release 3-21 00:00: 00 12-31 23:59 :00 No [id number] 1 tablet EVERY 8 HOURS 1 tablet EVERY 8 HOURS (route: oral) Med Classific ation: Analgesic , Anti-infl ammatory or Antipyret ic cyclobenzap rine 10 mg tablet 08-05 00:00: 00 09-01 23:59 :00 No [id number] 1 tablet BEDTIME 1 tablet BEDTIME (route: oral) Med Classific ation: Locomotor System meloxicam 15 mg tablet 08-05 00:00: 00 09-01 23:59 :00 No [id number] 1 tablet DAILY 1 tablet DAILY (route: oral) Med Classific ation: Analgesic , Anti-infl ammatory or Antipyret ic cyclobenzap rine 10 mg tablet 09-01 00:00: 00 12-31 23:59 :00 No [id number] 1 tablet BEDTIME 1 tablet BEDTIME (route: oral) Med Classific ation: Locomotor System meloxicam 15 mg tablet 09-01 00:00: 00 12-31 23:59 :00 No [id number] 1 tablet EVERY AM 1 tablet EVERY AM (route: oral) Med Classific ation: Analgesic , Anti-infl ammatory or Antipyret ic trazodone 50 mg tablet 09-01 00:00: 00 12-31 23:59 :00 No [id number] Per instruc tions BEDTIME Per instructio ns BEDTIME (route: oral) Med Classific ation: Central Nervous System Agents erythromyci n 5 mg/gram (0.5 %) eye ointment 2024-03 00:00: 00 Yes [id number] Per instruc tions 4 TIMES DAILY Per instructio ns 4 TIMES DAILY (route: ophthalmic (eye)) Med Classific ation: Ophthalmi c Agents albuterol sulfate HFA 90 mcg/actuati on aerosol inhaler 2024-03 00:00: 00 Yes [id number] 2 puff EVERY 6 HOURS 2 puff EVERY 6 HOURS (route: inhalation ) Med Classific ation: Respirato ry Therapy Agents bupropion HCl XL 300 mg 24 hr tablet, extended release 2024-03 00:00: 00 Yes [id number] 1 tablet EVERY AM 1 tablet EVERY AM (route: oral) Med Classific ation: Central Nervous System Agents carbidopa 25 mg-levodopa 100 mg disintegrat ing tablet 2024-03 00:00: 00 Yes [id number] 1.5 tablet NOON 1.5 tablet NOON (route: oral) Med Classific ation: Central Nervous System Agents carbidopa 25 mg-levodopa 100 mg tablet 2024-03 00:00: 00 Yes [id number] 1.5 tablet EVERY AM 1.5 tablet EVERY AM (route: oral) Med Classific ation: Central Nervous System Agents carbidopa 25 mg-levodopa 100 mg tablet 2024-03 00:00: 00 Yes [id number] 1.5 tablet EVERY PM 1.5 tablet EVERY PM (route: oral) Med Classific ation: Central Nervous System Agents carbidopa 25 mg-levodopa 100 mg tablet 2024-03 00:00: 00 Yes [id number] 1.5 tablet BEDTIME 1.5 tablet BEDTIME (route: oral) Med Classific ation: Central Nervous System Agents cyclobenzap rine 10 mg tablet 2024-03 00:00: 00 Yes [id number] 1 tablet BEDTIME 1 tablet BEDTIME (route: oral) Med Classific ation: Locomotor System famotidine 40 mg tablet 2024-03 00:00: 00 Yes [id number] 1 tablet EVERY AM 1 tablet EVERY AM (route: oral) Med Classific ation: Gastroint estinal Therapy Agents meloxicam 15 mg tablet 2024-03 00:00: 00 Yes [id number] 1 tablet EVERY AM 1 tablet EVERY AM (route: oral) Med Classific ation: Analgesic , Anti-infl ammatory or Antipyret ic paroxetine 40 mg tablet 2024-03 00:00: 00 Yes [id number] 1 tablet EVERY AM 1 tablet EVERY AM (route: oral) Med Classific ation: Central Nervous System Agents trazodone 50 mg tablet 2024-03 00:00: 00 Yes [id number] 1 tablet BEDTIME 1 tablet BEDTIME (route: oral) Med Classific ation: Central Nervous System Agents Tylenol Arthritis Pain 650 mg tablet,exte nded release 2024-03 0-23 00:00: 00 Yes [id number] 1 tablet EVERY 8 HOURS 1 tablet EVERY 8 HOURS (route: oral) Med Classific ation: Analgesic , Anti-infl ammatory or Antipyret ic Farxiga 5 mg tablet 2024-03 1-03 00:00: 00 Yes [id number] 1 tablet EVERY AM 1 tablet EVERY [...] AWARENESS FOR SAFETY AND WILL NOTIFY CLINICAL VOIP NETWORK ENGINEER AND PHYSICIAN/PROVIDER WITH ANY CHANGE IN CONDITION. [code = SKILLED NURSE WILL MAINTAIN SITUATIONAL AWARENESS FOR SAFETY AND WILL NOTIFY CLINICAL VOIP NETWORK ENGINEER AND PHYSICIAN/PROVIDER WITH ANY CHANGE IN CONDITION.] [...] CLEAN AND NEATLY DRESSED IN KITCHEN WITH PILE TRIMMER PRESENT D/T MOUSE PROBLEM. HER HOME IS [...] WITH HER MED PP PER HER MED SALES ADVISOR AND DENIES ANY ADVERSE EFFECTS.</paragraph> Encounters Start Date/Time End Date/Time Encounter Type Admission Type Attending Clinicians Care Facility Care Department Encounter ID Discharge Date Discharge Status Discharge Condition Discharge Reason Percent Goals Met 2025-01-19 00:00:00 2025-03-19 00:00:00 Outpatient RECERTIFIC ATSNEHAL VELA [facility] [id number] 76.00
--- OUTSIDE RECORDS SUMMARY | 2025-03-18 19:00 | XMS_ITS | Clinical Summary ---
Author Organization Unknown Care Team Providers Care Hot Stamp Operator Name Role Phone YAIMA RASMUSSEN, KAVITA BEST Unavailable Unamirella SPEARS RN, SNEHAL Unavailable Unavailable Payers Payer Name Policy Type Policy Number Effective Date Expira tion Date [employer] MEDICARE ADVANTAGE FFS [id number] MEDICARE - [place] PDGM [id number] Problems Condition Name Condition Details Condition Category [...] 06-25 00:00: 00 12-31 23:59 :00 No [id number] 2 puff DIRECTED 2 puff DIRECTED (route: inhalation ) Med Classific ation: Respirato ry Therapy Agents bupropion HCl XL 300 mg 24 hr tablet, extended release 06-25 00:00: 00 12-31 23:59 :00 No [id number] 1 tablet DAILY 1 tablet DAILY (route: oral) Med Classific ation: Central Nervous System Agents carbidopa 25 mg-levodopa 100 mg tablet 417 00:00: 00 12-31 23:59 :00 No [id number] 1.5 tablet 4 TIMES DAILY 1.5 tablet 4 TIMES DAILY (route: oral) Med Classific ation: Central Nervous System Agents famotidine 40 mg tablet 417 00:00: 00 09-01 23:59 :00 No [id number] 1 tablet DAILY 1 tablet DAILY (route: oral) Med Classific ation: Gastroint estinal Therapy Agents paroxetine 40 mg tablet 17 00:00: 00 12-31 23:59 :00 No [id number] 1 tablet DAILY 1 tablet DAILY (route: oral) Med Classific ation: Central Nervous System Agents trazodone 50 mg tablet 06-25 00:00: 00 09-01 23:59 :00 No [id number] Per instruc tions BEDTIME Per instructio ns BEDTIME (route: oral) Med Classific ation: Central Nervous System Agents gabapentin 100 mg capsule -24 00:00: 00 09-01 23:59 :00 No [id number] pain Per instruc tions BEDTIME Per instructio ns BEDTIME (route: oral) Med Classific ation: Central Nervous System Agents omeprazole 40 mg capsule,del ayed release -24 00:00: 00 05-20 23:59 :00 No [id number] 1 capsule DAILY 1 capsule DAILY (route: oral) Med Classific ation: Gastroint estinal Therapy Agents gabapentin 100 mg capsule 2023-03 0- 00:00: 00 09-01 23:59 :00 No [id number] Per instruc tions 2 TIMES DAILY Per instructio ns 2 TIMES DAILY (route: oral) Med Classific ation: Central Nervous System Agents famotidine 40 mg tablet 3-16 00:00: 00 12-31 23:59 :00 No [id number] 1 tablet EVERY AM 1 tablet EVERY AM (route: oral) Med Classific ation: Gastroint estinal Therapy Agents Tylenol Arthritis Pain 650 mg tablet,exte nded release 3-21 00:00: 00 12-31 23:59 :00 No [id number] 1 tablet EVERY 8 HOURS 1 tablet EVERY 8 HOURS (route: oral) Med Classific ation: Analgesic , Anti-infl ammatory or Antipyret ic cyclobenzap rine 10 mg tablet 08-05 00:00: 00 09-01 23:59 :00 No [id number] 1 tablet BEDTIME 1 tablet BEDTIME (route: oral) Med Classific ation: Locomotor System meloxicam 15 mg tablet 08-05 00:00: 00 09-01 23:59 :00 No [id number] 1 tablet DAILY 1 tablet DAILY (route: oral) Med Classific ation: Analgesic , Anti-infl ammatory or Antipyret ic cyclobenzap rine 10 mg tablet 09-01 00:00: 00 12-31 23:59 :00 No [id number] 1 tablet BEDTIME 1 tablet BEDTIME (route: oral) Med Classific ation: Locomotor System meloxicam 15 mg tablet 09-01 00:00: 00 12-31 23:59 :00 No [id number] 1 tablet EVERY AM 1 tablet EVERY AM (route: oral) Med Classific ation: Analgesic , Anti-infl ammatory or Antipyret ic trazodone 50 mg tablet 09-01 00:00: 00 12-31 23:59 :00 No [id number] Per instruc tions BEDTIME Per instructio ns BEDTIME (route: oral) Med Classific ation: Central Nervous System Agents erythromyci n 5 mg/gram (0.5 %) eye ointment 2024-03 00:00: 00 Yes [id number] Per instruc tions 4 TIMES DAILY Per instructio ns 4 TIMES DAILY (route: ophthalmic (eye)) Med Classific ation: Ophthalmi c Agents albuterol sulfate HFA 90 mcg/actuati on aerosol inhaler 2024-03 00:00: 00 Yes [id number] 2 puff EVERY 6 HOURS 2 puff EVERY 6 HOURS (route: inhalation ) Med Classific ation: Respirato ry Therapy Agents bupropion HCl XL 300 mg 24 hr tablet, extended release 2024-03 00:00: 00 Yes [id number] 1 tablet EVERY AM 1 tablet EVERY AM (route: oral) Med Classific ation: Central Nervous System Agents carbidopa 25 mg-levodopa 100 mg disintegrat ing tablet 2024-03 00:00: 00 Yes [id number] 1.5 tablet NOON 1.5 tablet NOON (route: oral) Med Classific ation: Central Nervous System Agents carbidopa 25 mg-levodopa 100 mg tablet 2024-03 00:00: 00 Yes [id number] 1.5 tablet EVERY AM 1.5 tablet EVERY AM (route: oral) Med Classific ation: Central Nervous System Agents carbidopa 25 mg-levodopa 100 mg tablet 2024-03 00:00: 00 Yes [id number] 1.5 tablet EVERY PM 1.5 tablet EVERY PM (route: oral) Med Classific ation: Central Nervous System Agents carbidopa 25 mg-levodopa 100 mg tablet 2024-03 00:00: 00 Yes [id number] 1.5 tablet BEDTIME 1.5 tablet BEDTIME (route: oral) Med Classific ation: Central Nervous System Agents cyclobenzap rine 10 mg tablet 2024-03 00:00: 00 Yes [id number] 1 tablet BEDTIME 1 tablet BEDTIME (route: oral) Med Classific ation: Locomotor System famotidine 40 mg tablet 2024-03 00:00: 00 Yes [id number] 1 tablet EVERY AM 1 tablet EVERY AM (route: oral) Med Classific ation: Gastroint estinal Therapy Agents meloxicam 15 mg tablet 2024-03 00:00: 00 Yes [id number] 1 tablet EVERY AM 1 tablet EVERY AM (route: oral) Med Classific ation: Analgesic , Anti-infl ammatory or Antipyret ic paroxetine 40 mg tablet 2024-03 00:00: 00 Yes [id number] 1 tablet EVERY AM 1 tablet EVERY AM (route: oral) Med Classific ation: Central Nervous System Agents trazodone 50 mg tablet 2024-03 00:00: 00 Yes [id number] 1 tablet BEDTIME 1 tablet BEDTIME (route: oral) Med Classific ation: Central Nervous System Agents Tylenol Arthritis Pain 650 mg tablet,exte nded release 2024-03 0-23 00:00: 00 Yes [id number] 1 tablet EVERY 8 HOURS 1 tablet EVERY 8 HOURS (route: oral) Med Classific ation: Analgesic , Anti-infl ammatory or Antipyret ic Farxiga 5 mg tablet 2024-03 1-03 00:00: 00 Yes [id number] 1 tablet EVERY AM 1 tablet EVERY [...] AWARENESS FOR SAFETY AND WILL NOTIFY CLINICAL SLOTTER OPERATOR AND PHYSICIAN/PROVIDER WITH ANY CHANGE IN CONDITION. [code = SKILLED NURSE WILL MAINTAIN SITUATIONAL AWARENESS FOR SAFETY AND WILL NOTIFY CLINICAL SLOTTER OPERATOR AND PHYSICIAN/PROVIDER WITH ANY CHANGE IN [...] CLEAN AND NEATLY DRESSED IN KITCHEN WITH DESIGN INSERTER PRESENT D/T MOUSE PROBLEM. HER HOME IS [...] WITH HER MED PP PER HER MED RETAIL GREETER AND DENIES ANY ADVERSE EFFECTS.</paragraph> Encounters Start Date/Time End Date/Time Encounter Type Admission Type Attending Clinicians Care Facility Care Department Encounter ID Discharge Date Discharge Status Discharge Condition Discharge Reason Percent Goals Met 2025-01-19 00:00:00 2025-03-19 00:00:00 Outpatient RECERTIFIC ATSNEHAL VELA [facility] [id number] 76.00
--- OUTSIDE RECORDS SUMMARY | 2025-03-18 19:00 | XMS_ITS | Clinical Summary ---
Author Organization Unknown Care Team Providers Care Manufacturing Engineering Manager Name Role Phone YAIMA RASMUSSEN, KAVITA BEST Unavailable Unamirella SPEARS RN, SNEHAL Unavailable Unavailable Payers Payer Name Policy Type Policy Number Effective Date Expira tion Date [employer] MEDICARE ADVANTAGE FFS [id number] MEDICARE - [place] PDGM [id number] Problems Condition Name Condition Details Condition Category [...] 06-25 00:00: 00 12-31 23:59 :00 No [id number] 2 puff DIRECTED 2 puff DIRECTED (route: inhalation ) Med Classific ation: Respirato ry Therapy Agents bupropion HCl XL 300 mg 24 hr tablet, extended release 06-25 00:00: 00 12-31 23:59 :00 No [id number] 1 tablet DAILY 1 tablet DAILY (route: oral) Med Classific ation: Central Nervous System Agents carbidopa 25 mg-levodopa 100 mg tablet 417 00:00: 00 12-31 23:59 :00 No [id number] 1.5 tablet 4 TIMES DAILY 1.5 tablet 4 TIMES DAILY (route: oral) Med Classific ation: Central Nervous System Agents famotidine 40 mg tablet 417 00:00: 00 09-01 23:59 :00 No [id number] 1 tablet DAILY 1 tablet DAILY (route: oral) Med Classific ation: Gastroint estinal Therapy Agents paroxetine 40 mg tablet 17 00:00: 00 12-31 23:59 :00 No [id number] 1 tablet DAILY 1 tablet DAILY (route: oral) Med Classific ation: Central Nervous System Agents trazodone 50 mg tablet 06-25 00:00: 00 09-01 23:59 :00 No [id number] Per instruc tions BEDTIME Per instructio ns BEDTIME (route: oral) Med Classific ation: Central Nervous System Agents gabapentin 100 mg capsule -24 00:00: 00 09-01 23:59 :00 No [id number] pain Per instruc tions BEDTIME Per instructio ns BEDTIME (route: oral) Med Classific ation: Central Nervous System Agents omeprazole 40 mg capsule,del ayed release -24 00:00: 00 05-20 23:59 :00 No [id number] 1 capsule DAILY 1 capsule DAILY (route: oral) Med Classific ation: Gastroint estinal Therapy Agents gabapentin 100 mg capsule 2023-03 0- 00:00: 00 09-01 23:59 :00 No [id number] Per instruc tions 2 TIMES DAILY Per instructio ns 2 TIMES DAILY (route: oral) Med Classific ation: Central Nervous System Agents famotidine 40 mg tablet 3-16 00:00: 00 12-31 23:59 :00 No [id number] 1 tablet EVERY AM 1 tablet EVERY AM (route: oral) Med Classific ation: Gastroint estinal Therapy Agents Tylenol Arthritis Pain 650 mg tablet,exte nded release 3-21 00:00: 00 12-31 23:59 :00 No [id number] 1 tablet EVERY 8 HOURS 1 tablet EVERY 8 HOURS (route: oral) Med Classific ation: Analgesic , Anti-infl ammatory or Antipyret ic cyclobenzap rine 10 mg tablet 08-05 00:00: 00 09-01 23:59 :00 No [id number] 1 tablet BEDTIME 1 tablet BEDTIME (route: oral) Med Classific ation: Locomotor System meloxicam 15 mg tablet 08-05 00:00: 00 09-01 23:59 :00 No [id number] 1 tablet DAILY 1 tablet DAILY (route: oral) Med Classific ation: Analgesic , Anti-infl ammatory or Antipyret ic cyclobenzap rine 10 mg tablet 09-01 00:00: 00 12-31 23:59 :00 No [id number] 1 tablet BEDTIME 1 tablet BEDTIME (route: oral) Med Classific ation: Locomotor System meloxicam 15 mg tablet 09-01 00:00: 00 12-31 23:59 :00 No [id number] 1 tablet EVERY AM 1 tablet EVERY AM (route: oral) Med Classific ation: Analgesic , Anti-infl ammatory or Antipyret ic trazodone 50 mg tablet 09-01 00:00: 00 12-31 23:59 :00 No [id number] Per instruc tions BEDTIME Per instructio ns BEDTIME (route: oral) Med Classific ation: Central Nervous System Agents erythromyci n 5 mg/gram (0.5 %) eye ointment 2024-03 00:00: 00 Yes [id number] Per instruc tions 4 TIMES DAILY Per instructio ns 4 TIMES DAILY (route: ophthalmic (eye)) Med Classific ation: Ophthalmi c Agents albuterol sulfate HFA 90 mcg/actuati on aerosol inhaler 2024-03 00:00: 00 Yes [id number] 2 puff EVERY 6 HOURS 2 puff EVERY 6 HOURS (route: inhalation ) Med Classific ation: Respirato ry Therapy Agents bupropion HCl XL 300 mg 24 hr tablet, extended release 2024-03 00:00: 00 Yes [id number] 1 tablet EVERY AM 1 tablet EVERY AM (route: oral) Med Classific ation: Central Nervous System Agents carbidopa 25 mg-levodopa 100 mg disintegrat ing tablet 2024-03 00:00: 00 Yes [id number] 1.5 tablet NOON 1.5 tablet NOON (route: oral) Med Classific ation: Central Nervous System Agents carbidopa 25 mg-levodopa 100 mg tablet 2024-03 00:00: 00 Yes [id number] 1.5 tablet EVERY AM 1.5 tablet EVERY AM (route: oral) Med Classific ation: Central Nervous System Agents carbidopa 25 mg-levodopa 100 mg tablet 2024-03 00:00: 00 Yes [id number] 1.5 tablet EVERY PM 1.5 tablet EVERY PM (route: oral) Med Classific ation: Central Nervous System Agents carbidopa 25 mg-levodopa 100 mg tablet 2024-03 00:00: 00 Yes [id number] 1.5 tablet BEDTIME 1.5 tablet BEDTIME (route: oral) Med Classific ation: Central Nervous System Agents cyclobenzap rine 10 mg tablet 2024-03 00:00: 00 Yes [id number] 1 tablet BEDTIME 1 tablet BEDTIME (route: oral) Med Classific ation: Locomotor System famotidine 40 mg tablet 2024-03 00:00: 00 Yes [id number] 1 tablet EVERY AM 1 tablet EVERY AM (route: oral) Med Classific ation: Gastroint estinal Therapy Agents meloxicam 15 mg tablet 2024-03 00:00: 00 Yes [id number] 1 tablet EVERY AM 1 tablet EVERY AM (route: oral) Med Classific ation: Analgesic , Anti-infl ammatory or Antipyret ic paroxetine 40 mg tablet 2024-03 00:00: 00 Yes [id number] 1 tablet EVERY AM 1 tablet EVERY AM (route: oral) Med Classific ation: Central Nervous System Agents trazodone 50 mg tablet 2024-03 00:00: 00 Yes [id number] 1 tablet BEDTIME 1 tablet BEDTIME (route: oral) Med Classific ation: Central Nervous System Agents Tylenol Arthritis Pain 650 mg tablet,exte nded release 2024-03 0-23 00:00: 00 Yes [id number] 1 tablet EVERY 8 HOURS 1 tablet EVERY 8 HOURS (route: oral) Med Classific ation: Analgesic , Anti-infl ammatory or Antipyret ic Farxiga 5 mg tablet 2024-03 1-03 00:00: 00 Yes [id number] 1 tablet EVERY AM 1 tablet EVERY [...] AWARENESS FOR SAFETY AND WILL NOTIFY CLINICAL RUN LEAD AND PHYSICIAN/PROVIDER WITH ANY CHANGE IN CONDITION. [code = SKILLED NURSE WILL MAINTAIN SITUATIONAL AWARENESS FOR SAFETY AND WILL NOTIFY CLINICAL RUN LEAD AND PHYSICIAN/PROVIDER WITH ANY CHANGE IN CONDITION.] [...] CLEAN AND NEATLY DRESSED IN KITCHEN WITH LACE FINISHER PRESENT D/T MOUSE PROBLEM. HER HOME IS [...] WITH HER MED PP PER HER MED STRAPPING MACHINE OPERATOR AND DENIES ANY ADVERSE EFFECTS.</paragraph> Encounters Start Date/Time End Date/Time Encounter Type Admission Type Attending Clinicians Care Facility Care Department Encounter ID Discharge Date Discharge Status Discharge Condition Discharge Reason Percent Goals Met 2025-01-19 00:00:00 2025-03-19 00:00:00 Outpatient RECERTIFIC ATSNEHAL VELA [facility] [id number] 76.00
--- OUTSIDE RECORDS SUMMARY | 2025-03-18 19:00 | XMS_ITS | Clinical Summary ---
Author Organization Unknown Care Team Providers Care Welfare Worker Name Role Phone YAIMA RASMUSSEN, KAVITA BEST Unavailable Unamirella SPEARS RN, SNEHAL Unavailable Unavailable Payers Payer Name Policy Type Policy Number Effective Date Expira tion Date [employer] MEDICARE ADVANTAGE FFS [id number] MEDICARE - [place] - PDGM [id number] Problems Condition Name Condition Details Condition Category [...] 06-25 00:00: 00 12-31 23:59 :00 No [id number] 2 puff DIRECTED 2 puff DIRECTED (route: inhalation ) Med Classific ation: Respirato ry Therapy Agents bupropion HCl XL 300 mg 24 hr tablet, extended release 06-25 00:00: 00 12-31 23:59 :00 No [id number] 1 tablet DAILY 1 tablet DAILY (route: oral) Med Classific ation: Central Nervous System Agents carbidopa 25 mg-levodopa 100 mg tablet 417 00:00: 00 12-31 23:59 :00 No [id number] 1.5 tablet 4 TIMES DAILY 1.5 tablet 4 TIMES DAILY (route: oral) Med Classific ation: Central Nervous System Agents famotidine 40 mg tablet 417 00:00: 00 09-01 23:59 :00 No [id number] 1 tablet DAILY 1 tablet DAILY (route: oral) Med Classific ation: Gastroint estinal Therapy Agents paroxetine 40 mg tablet 17 00:00: 00 12-31 23:59 :00 No [id number] 1 tablet DAILY 1 tablet DAILY (route: oral) Med Classific ation: Central Nervous System Agents trazodone 50 mg tablet 06-25 00:00: 00 09-01 23:59 :00 No [id number] Per instruc tions BEDTIME Per instructio ns BEDTIME (route: oral) Med Classific ation: Central Nervous System Agents gabapentin 100 mg capsule -24 00:00: 00 09-01 23:59 :00 No [id number] pain Per instruc tions BEDTIME Per instructio ns BEDTIME (route: oral) Med Classific ation: Central Nervous System Agents omeprazole 40 mg capsule,del ayed release -24 00:00: 00 05-20 23:59 :00 No [id number] 1 capsule DAILY 1 capsule DAILY (route: oral) Med Classific ation: Gastroint estinal Therapy Agents gabapentin 100 mg capsule 2023-03 0- 00:00: 00 09-01 23:59 :00 No [id number] Per instruc tions 2 TIMES DAILY Per instructio ns 2 TIMES DAILY (route: oral) Med Classific ation: Central Nervous System Agents famotidine 40 mg tablet 3-16 00:00: 00 12-31 23:59 :00 No [id number] 1 tablet EVERY AM 1 tablet EVERY AM (route: oral) Med Classific ation: Gastroint estinal Therapy Agents Tylenol Arthritis Pain 650 mg tablet,exte nded release 3-21 00:00: 00 12-31 23:59 :00 No [id number] 1 tablet EVERY 8 HOURS 1 tablet EVERY 8 HOURS (route: oral) Med Classific ation: Analgesic , Anti-infl ammatory or Antipyret ic cyclobenzap rine 10 mg tablet 08-05 00:00: 00 09-01 23:59 :00 No [id number] 1 tablet BEDTIME 1 tablet BEDTIME (route: oral) Med Classific ation: Locomotor System meloxicam 15 mg tablet 08-05 00:00: 00 09-01 23:59 :00 No [id number] 1 tablet DAILY 1 tablet DAILY (route: oral) Med Classific ation: Analgesic , Anti-infl ammatory or Antipyret ic cyclobenzap rine 10 mg tablet 09-01 00:00: 00 12-31 23:59 :00 No [id number] 1 tablet BEDTIME 1 tablet BEDTIME (route: oral) Med Classific ation: Locomotor System meloxicam 15 mg tablet 09-01 00:00: 00 12-31 23:59 :00 No [id number] 1 tablet EVERY AM 1 tablet EVERY AM (route: oral) Med Classific ation: Analgesic , Anti-infl ammatory or Antipyret ic trazodone 50 mg tablet 09-01 00:00: 00 12-31 23:59 :00 No [id number] Per instruc tions BEDTIME Per instructio ns BEDTIME (route: oral) Med Classific ation: Central Nervous System Agents erythromyci n 5 mg/gram (0.5 %) eye ointment 2024-03 00:00: 00 Yes [id number] Per instruc tions 4 TIMES DAILY Per instructio ns 4 TIMES DAILY (route: ophthalmic (eye)) Med Classific ation: Ophthalmi c Agents albuterol sulfate HFA 90 mcg/actuati on aerosol inhaler 2024-03 00:00: 00 Yes [id number] 2 puff EVERY 6 HOURS 2 puff EVERY 6 HOURS (route: inhalation ) Med Classific ation: Respirato ry Therapy Agents bupropion HCl XL 300 mg 24 hr tablet, extended release 2024-03 00:00: 00 Yes [id number] 1 tablet EVERY AM 1 tablet EVERY AM (route: oral) Med Classific ation: Central Nervous System Agents carbidopa 25 mg-levodopa 100 mg disintegrat ing tablet 2024-03 00:00: 00 Yes [id number] 1.5 tablet NOON 1.5 tablet NOON (route: oral) Med Classific ation: Central Nervous System Agents carbidopa 25 mg-levodopa 100 mg tablet 2024-03 00:00: 00 Yes [id number] 1.5 tablet EVERY AM 1.5 tablet EVERY AM (route: oral) Med Classific ation: Central Nervous System Agents carbidopa 25 mg-levodopa 100 mg tablet 2024-03 00:00: 00 Yes [id number] 1.5 tablet EVERY PM 1.5 tablet EVERY PM (route: oral) Med Classific ation: Central Nervous System Agents carbidopa 25 mg-levodopa 100 mg tablet 2024-03 00:00: 00 Yes [id number] 1.5 tablet BEDTIME 1.5 tablet BEDTIME (route: oral) Med Classific ation: Central Nervous System Agents cyclobenzap rine 10 mg tablet 2024-03 00:00: 00 Yes [id number] 1 tablet BEDTIME 1 tablet BEDTIME (route: oral) Med Classific ation: Locomotor System famotidine 40 mg tablet 2024-03 00:00: 00 Yes [id number] 1 tablet EVERY AM 1 tablet EVERY AM (route: oral) Med Classific ation: Gastroint estinal Therapy Agents meloxicam 15 mg tablet 2024-03 00:00: 00 Yes [id number] 1 tablet EVERY AM 1 tablet EVERY AM (route: oral) Med Classific ation: Analgesic , Anti-infl ammatory or Antipyret ic paroxetine 40 mg tablet 2024-03 00:00: 00 Yes [id number] 1 tablet EVERY AM 1 tablet EVERY AM (route: oral) Med Classific ation: Central Nervous System Agents trazodone 50 mg tablet 2024-03 00:00: 00 Yes [id number] 1 tablet BEDTIME 1 tablet BEDTIME (route: oral) Med Classific ation: Central Nervous System Agents Tylenol Arthritis Pain 650 mg tablet,exte nded release 2024-03 0-23 00:00: 00 Yes [id number] 1 tablet EVERY 8 HOURS 1 tablet EVERY 8 HOURS (route: oral) Med Classific ation: Analgesic , Anti-infl ammatory or Antipyret ic Farxiga 5 mg tablet 2024-03 1-03 00:00: 00 Yes [id number] 1 tablet EVERY AM 1 tablet EVERY [...] AWARENESS FOR SAFETY AND WILL NOTIFY CLINICAL ELECTRICAL PROSPECTING OPERATOR AND PHYSICIAN/PROVIDER WITH ANY CHANGE IN CONDITION. [code = SKILLED NURSE WILL MAINTAIN SITUATIONAL AWARENESS FOR SAFETY AND WILL NOTIFY CLINICAL ELECTRICAL PROSPECTING OPERATOR AND PHYSICIAN/PROVIDER WITH ANY CHANGE IN [...] CLEAN AND NEATLY DRESSED IN KITCHEN WITH TREE WRAPPER PRESENT D/T MOUSE PROBLEM. 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
--- OUTSIDE RECORDS SUMMARY | 2025-03-18 19:00 | XMS_ITS | Clinical Summary ---
Author Organization Unknown Care Team Providers Care Orthodontic Treatment Coordinator Name Role Phone YAIMA RASMUSSEN, KAVITA BEST Unavailable Unamirella SPEARS RN, SNEHAL Unavailable Unavailable Payers Payer Name Policy Type Policy Number Effective Date Expira tion Date [employer] MEDICARE ADVANTAGE FFS [id number] MEDICARE - [place] PDGM [id number] Problems Condition Name Condition Details Condition Category [...] 06-25 00:00: 00 12-31 23:59 :00 No [id number] 2 puff DIRECTED 2 puff DIRECTED (route: inhalation ) Med Classific ation: Respirato ry Therapy Agents bupropion HCl XL 300 mg 24 hr tablet, extended release 06-25 00:00: 00 12-31 23:59 :00 No [id number] 1 tablet DAILY 1 tablet DAILY (route: oral) Med Classific ation: Central Nervous System Agents carbidopa 25 mg-levodopa 100 mg tablet 417 00:00: 00 12-31 23:59 :00 No [id number] 1.5 tablet 4 TIMES DAILY 1.5 tablet 4 TIMES DAILY (route: oral) Med Classific ation: Central Nervous System Agents famotidine 40 mg tablet 417 00:00: 00 09-01 23:59 :00 No [id number] 1 tablet DAILY 1 tablet DAILY (route: oral) Med Classific ation: Gastroint estinal Therapy Agents paroxetine 40 mg tablet 17 00:00: 00 12-31 23:59 :00 No [id number] 1 tablet DAILY 1 tablet DAILY (route: oral) Med Classific ation: Central Nervous System Agents trazodone 50 mg tablet 06-25 00:00: 00 09-01 23:59 :00 No [id number] Per instruc tions BEDTIME Per instructio ns BEDTIME (route: oral) Med Classific ation: Central Nervous System Agents gabapentin 100 mg capsule -24 00:00: 00 09-01 23:59 :00 No [id number] pain Per instruc tions BEDTIME Per instructio ns BEDTIME (route: oral) Med Classific ation: Central Nervous System Agents omeprazole 40 mg capsule,del ayed release -24 00:00: 00 05-20 23:59 :00 No [id number] 1 capsule DAILY 1 capsule DAILY (route: oral) Med Classific ation: Gastroint estinal Therapy Agents gabapentin 100 mg capsule 2023-03 0- 00:00: 00 09-01 23:59 :00 No [id number] Per instruc tions 2 TIMES DAILY Per instructio ns 2 TIMES DAILY (route: oral) Med Classific ation: Central Nervous System Agents famotidine 40 mg tablet 3-16 00:00: 00 12-31 23:59 :00 No [id number] 1 tablet EVERY AM 1 tablet EVERY AM (route: oral) Med Classific ation: Gastroint estinal Therapy Agents Tylenol Arthritis Pain 650 mg tablet,exte nded release 3-21 00:00: 00 12-31 23:59 :00 No [id number] 1 tablet EVERY 8 HOURS 1 tablet EVERY 8 HOURS (route: oral) Med Classific ation: Analgesic , Anti-infl ammatory or Antipyret ic cyclobenzap rine 10 mg tablet 08-05 00:00: 00 09-01 23:59 :00 No [id number] 1 tablet BEDTIME 1 tablet BEDTIME (route: oral) Med Classific ation: Locomotor System meloxicam 15 mg tablet 08-05 00:00: 00 09-01 23:59 :00 No [id number] 1 tablet DAILY 1 tablet DAILY (route: oral) Med Classific ation: Analgesic , Anti-infl ammatory or Antipyret ic cyclobenzap rine 10 mg tablet 09-01 00:00: 00 12-31 23:59 :00 No [id number] 1 tablet BEDTIME 1 tablet BEDTIME (route: oral) Med Classific ation: Locomotor System meloxicam 15 mg tablet 09-01 00:00: 00 12-31 23:59 :00 No [id number] 1 tablet EVERY AM 1 tablet EVERY AM (route: oral) Med Classific ation: Analgesic , Anti-infl ammatory or Antipyret ic trazodone 50 mg tablet 09-01 00:00: 00 12-31 23:59 :00 No [id number] Per instruc tions BEDTIME Per instructio ns BEDTIME (route: oral) Med Classific ation: Central Nervous System Agents erythromyci n 5 mg/gram (0.5 %) eye ointment 2024-03 00:00: 00 Yes [id number] Per instruc tions 4 TIMES DAILY Per instructio ns 4 TIMES DAILY (route: ophthalmic (eye)) Med Classific ation: Ophthalmi c Agents albuterol sulfate HFA 90 mcg/actuati on aerosol inhaler 2024-03 00:00: 00 Yes [id number] 2 puff EVERY 6 HOURS 2 puff EVERY 6 HOURS (route: inhalation ) Med Classific ation: Respirato ry Therapy Agents bupropion HCl XL 300 mg 24 hr tablet, extended release 2024-03 00:00: 00 Yes [id number] 1 tablet EVERY AM 1 tablet EVERY AM (route: oral) Med Classific ation: Central Nervous System Agents carbidopa 25 mg-levodopa 100 mg disintegrat ing tablet 2024-03 00:00: 00 Yes [id number] 1.5 tablet NOON 1.5 tablet NOON (route: oral) Med Classific ation: Central Nervous System Agents carbidopa 25 mg-levodopa 100 mg tablet 2024-03 00:00: 00 Yes [id number] 1.5 tablet EVERY AM 1.5 tablet EVERY AM (route: oral) Med Classific ation: Central Nervous System Agents carbidopa 25 mg-levodopa 100 mg tablet 2024-03 00:00: 00 Yes [id number] 1.5 tablet EVERY PM 1.5 tablet EVERY PM (route: oral) Med Classific ation: Central Nervous System Agents carbidopa 25 mg-levodopa 100 mg tablet 2024-03 00:00: 00 Yes [id number] 1.5 tablet BEDTIME 1.5 tablet BEDTIME (route: oral) Med Classific ation: Central Nervous System Agents cyclobenzap rine 10 mg tablet 2024-03 00:00: 00 Yes [id number] 1 tablet BEDTIME 1 tablet BEDTIME (route: oral) Med Classific ation: Locomotor System famotidine 40 mg tablet 2024-03 00:00: 00 Yes [id number] 1 tablet EVERY AM 1 tablet EVERY AM (route: oral) Med Classific ation: Gastroint estinal Therapy Agents meloxicam 15 mg tablet 2024-03 00:00: 00 Yes [id number] 1 tablet EVERY AM 1 tablet EVERY AM (route: oral) Med Classific ation: Analgesic , Anti-infl ammatory or Antipyret ic paroxetine 40 mg tablet 2024-03 00:00: 00 Yes [id number] 1 tablet EVERY AM 1 tablet EVERY AM (route: oral) Med Classific ation: Central Nervous System Agents trazodone 50 mg tablet 2024-03 00:00: 00 Yes [id number] 1 tablet BEDTIME 1 tablet BEDTIME (route: oral) Med Classific ation: Central Nervous System Agents Tylenol Arthritis Pain 650 mg tablet,exte nded release 2024-03 0-23 00:00: 00 Yes [id number] 1 tablet EVERY 8 HOURS 1 tablet EVERY 8 HOURS (route: oral) Med Classific ation: Analgesic , Anti-infl ammatory or Antipyret ic Farxiga 5 mg tablet 2024-03 1-03 00:00: 00 Yes [id number] 1 tablet EVERY AM 1 tablet EVERY [...] AWARENESS FOR SAFETY AND WILL NOTIFY CLINICAL CLEANING TEAM MEMBER AND PHYSICIAN/PROVIDER WITH ANY CHANGE IN CONDITION. [code = SKILLED NURSE WILL MAINTAIN SITUATIONAL AWARENESS FOR SAFETY AND WILL NOTIFY CLINICAL CLEANING TEAM MEMBER AND PHYSICIAN/PROVIDER WITH ANY CHANGE IN CONDITION.] [...] CLEAN AND NEATLY DRESSED IN KITCHEN WITH GASTROINTESTINAL TECHNICIAN PRESENT D/T MOUSE PROBLEM. 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
--- OUTSIDE RECORDS SUMMARY | 2025-03-18 19:00 | XMS_ITS | Clinical Summary ---
Author Organization Unknown Care Team Providers Care Office Specialist Name Role Phone YAIMA RASMUSSEN, KAVITA BEST Unavailable Unamirella SPEARS RN, SNEHAL Unavailable Unavailable Payers Payer Name Policy Type Policy Number Effective Date Expira tion Date [employer] MEDICARE ADVANTAGE FFS [id number] MEDICARE - [place] PDGM [id number] Problems Condition Name Condition Details Condition Category [...] 06-25 00:00: 00 12-31 23:59 :00 No [id number] 2 puff DIRECTED 2 puff DIRECTED (route: inhalation ) Med Classific ation: Respirato ry Therapy Agents bupropion HCl XL 300 mg 24 hr tablet, extended release 06-25 00:00: 00 12-31 23:59 :00 No [id number] 1 tablet DAILY 1 tablet DAILY (route: oral) Med Classific ation: Central Nervous System Agents carbidopa 25 mg-levodopa 100 mg tablet 417 00:00: 00 12-31 23:59 :00 No [id number] 1.5 tablet 4 TIMES DAILY 1.5 tablet 4 TIMES DAILY (route: oral) Med Classific ation: Central Nervous System Agents famotidine 40 mg tablet 417 00:00: 00 09-01 23:59 :00 No [id number] 1 tablet DAILY 1 tablet DAILY (route: oral) Med Classific ation: Gastroint estinal Therapy Agents paroxetine 40 mg tablet 17 00:00: 00 12-31 23:59 :00 No [id number] 1 tablet DAILY 1 tablet DAILY (route: oral) Med Classific ation: Central Nervous System Agents trazodone 50 mg tablet 06-25 00:00: 00 09-01 23:59 :00 No [id number] Per instruc tions BEDTIME Per instructio ns BEDTIME (route: oral) Med Classific ation: Central Nervous System Agents gabapentin 100 mg capsule -24 00:00: 00 09-01 23:59 :00 No [id number] pain Per instruc tions BEDTIME Per instructio ns BEDTIME (route: oral) Med Classific ation: Central Nervous System Agents omeprazole 40 mg capsule,del ayed release -24 00:00: 00 05-20 23:59 :00 No [id number] 1 capsule DAILY 1 capsule DAILY (route: oral) Med Classific ation: Gastroint estinal Therapy Agents gabapentin 100 mg capsule 2023-03 0- 00:00: 00 09-01 23:59 :00 No [id number] Per instruc tions 2 TIMES DAILY Per instructio ns 2 TIMES DAILY (route: oral) Med Classific ation: Central Nervous System Agents famotidine 40 mg tablet 3-16 00:00: 00 12-31 23:59 :00 No [id number] 1 tablet EVERY AM 1 tablet EVERY AM (route: oral) Med Classific ation: Gastroint estinal Therapy Agents Tylenol Arthritis Pain 650 mg tablet,exte nded release 3-21 00:00: 00 12-31 23:59 :00 No [id number] 1 tablet EVERY 8 HOURS 1 tablet EVERY 8 HOURS (route: oral) Med Classific ation: Analgesic , Anti-infl ammatory or Antipyret ic cyclobenzap rine 10 mg tablet 08-05 00:00: 00 09-01 23:59 :00 No [id number] 1 tablet BEDTIME 1 tablet BEDTIME (route: oral) Med Classific ation: Locomotor System meloxicam 15 mg tablet 08-05 00:00: 00 09-01 23:59 :00 No [id number] 1 tablet DAILY 1 tablet DAILY (route: oral) Med Classific ation: Analgesic , Anti-infl ammatory or Antipyret ic cyclobenzap rine 10 mg tablet 09-01 00:00: 00 12-31 23:59 :00 No [id number] 1 tablet BEDTIME 1 tablet BEDTIME (route: oral) Med Classific ation: Locomotor System meloxicam 15 mg tablet 09-01 00:00: 00 12-31 23:59 :00 No [id number] 1 tablet EVERY AM 1 tablet EVERY AM (route: oral) Med Classific ation: Analgesic , Anti-infl ammatory or Antipyret ic trazodone 50 mg tablet 09-01 00:00: 00 12-31 23:59 :00 No [id number] Per instruc tions BEDTIME Per instructio ns BEDTIME (route: oral) Med Classific ation: Central Nervous System Agents erythromyci n 5 mg/gram (0.5 %) eye ointment 2024-03 00:00: 00 Yes [id number] Per instruc tions 4 TIMES DAILY Per instructio ns 4 TIMES DAILY (route: ophthalmic (eye)) Med Classific ation: Ophthalmi c Agents albuterol sulfate HFA 90 mcg/actuati on aerosol inhaler 2024-03 00:00: 00 Yes [id number] 2 puff EVERY 6 HOURS 2 puff EVERY 6 HOURS (route: inhalation ) Med Classific ation: Respirato ry Therapy Agents bupropion HCl XL 300 mg 24 hr tablet, extended release 2024-03 00:00: 00 Yes [id number] 1 tablet EVERY AM 1 tablet EVERY AM (route: oral) Med Classific ation: Central Nervous System Agents carbidopa 25 mg-levodopa 100 mg disintegrat ing tablet 2024-03 00:00: 00 Yes [id number] 1.5 tablet NOON 1.5 tablet NOON (route: oral) Med Classific ation: Central Nervous System Agents carbidopa 25 mg-levodopa 100 mg tablet 2024-03 00:00: 00 Yes [id number] 1.5 tablet EVERY AM 1.5 tablet EVERY AM (route: oral) Med Classific ation: Central Nervous System Agents carbidopa 25 mg-levodopa 100 mg tablet 2024-03 00:00: 00 Yes [id number] 1.5 tablet EVERY PM 1.5 tablet EVERY PM (route: oral) Med Classific ation: Central Nervous System Agents carbidopa 25 mg-levodopa 100 mg tablet 2024-03 00:00: 00 Yes [id number] 1.5 tablet BEDTIME 1.5 tablet BEDTIME (route: oral) Med Classific ation: Central Nervous System Agents cyclobenzap rine 10 mg tablet 2024-03 00:00: 00 Yes [id number] 1 tablet BEDTIME 1 tablet BEDTIME (route: oral) Med Classific ation: Locomotor System famotidine 40 mg tablet 2024-03 00:00: 00 Yes [id number] 1 tablet EVERY AM 1 tablet EVERY AM (route: oral) Med Classific ation: Gastroint estinal Therapy Agents meloxicam 15 mg tablet 2024-03 00:00: 00 Yes [id number] 1 tablet EVERY AM 1 tablet EVERY AM (route: oral) Med Classific ation: Analgesic , Anti-infl ammatory or Antipyret ic paroxetine 40 mg tablet 2024-03 00:00: 00 Yes [id number] 1 tablet EVERY AM 1 tablet EVERY AM (route: oral) Med Classific ation: Central Nervous System Agents trazodone 50 mg tablet 2024-03 00:00: 00 Yes [id number] 1 tablet BEDTIME 1 tablet BEDTIME (route: oral) Med Classific ation: Central Nervous System Agents Tylenol Arthritis Pain 650 mg tablet,exte nded release 2024-03 0-23 00:00: 00 Yes [id number] 1 tablet EVERY 8 HOURS 1 tablet EVERY 8 HOURS (route: oral) Med Classific ation: Analgesic , Anti-infl ammatory or Antipyret ic Farxiga 5 mg tablet 2024-03 1-03 00:00: 00 Yes [id number] 1 tablet EVERY AM 1 tablet EVERY [...] AWARENESS FOR SAFETY AND WILL NOTIFY CLINICAL STONEWORKING BELT SANDER AND PHYSICIAN/PROVIDER WITH ANY CHANGE IN CONDITION. [code = SKILLED NURSE WILL MAINTAIN SITUATIONAL AWARENESS FOR SAFETY AND WILL NOTIFY CLINICAL STONEWORKING BELT SANDER AND PHYSICIAN/PROVIDER WITH ANY CHANGE IN CONDITION.] [...] CARE WILL BE ESTABLISHED THAT MEETS PATIENT'S GROUP HOME NEEDS AND INCLUDES PATIENT GOAL FOR [...] CLEAN AND NEATLY DRESSED IN KITCHEN WITH VISUAL MERCHANDISING MANAGER PRESENT D/T MOUSE PROBLEM. 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
--- OUTSIDE RECORDS SUMMARY | 2025-03-18 19:00 | XMS_ITS | Clinical Summary ---
Author Organization Unknown Care Team Providers Care Pile Driver Name Role Phone YAIMA RASMUSSEN, KAVITA BEST Unavailable Unamirella SPEARS RN, SNEHAL Unavailable Unavailable Payers Payer Name Policy Type Policy Number Effective Date Expira tion Date [employer] MEDICARE ADVANTAGE FFS [id number] MEDICARE - [place] - PDGM [id number] Problems Condition Name Condition Details Condition Category [...] 06-25 00:00: 00 12-31 23:59 :00 No [id number] 2 puff DIRECTED 2 puff DIRECTED (route: inhalation ) Med Classific ation: Respirato ry Therapy Agents bupropion HCl XL 300 mg 24 hr tablet, extended release 06-25 00:00: 00 12-31 23:59 :00 No [id number] 1 tablet DAILY 1 tablet DAILY (route: oral) Med Classific ation: Central Nervous System Agents carbidopa 25 mg-levodopa 100 mg tablet 417 00:00: 00 12-31 23:59 :00 No [id number] 1.5 tablet 4 TIMES DAILY 1.5 tablet 4 TIMES DAILY (route: oral) Med Classific ation: Central Nervous System Agents famotidine 40 mg tablet 417 00:00: 00 09-01 23:59 :00 No [id number] 1 tablet DAILY 1 tablet DAILY (route: oral) Med Classific ation: Gastroint estinal Therapy Agents paroxetine 40 mg tablet 17 00:00: 00 12-31 23:59 :00 No [id number] 1 tablet DAILY 1 tablet DAILY (route: oral) Med Classific ation: Central Nervous System Agents trazodone 50 mg tablet 06-25 00:00: 00 09-01 23:59 :00 No [id number] Per instruc tions BEDTIME Per instructio ns BEDTIME (route: oral) Med Classific ation: Central Nervous System Agents gabapentin 100 mg capsule -24 00:00: 00 09-01 23:59 :00 No [id number] pain Per instruc tions BEDTIME Per instructio ns BEDTIME (route: oral) Med Classific ation: Central Nervous System Agents omeprazole 40 mg capsule,del ayed release -24 00:00: 00 05-20 23:59 :00 No [id number] 1 capsule DAILY 1 capsule DAILY (route: oral) Med Classific ation: Gastroint estinal Therapy Agents gabapentin 100 mg capsule 2023-03 0- 00:00: 00 09-01 23:59 :00 No [id number] Per instruc tions 2 TIMES DAILY Per instructio ns 2 TIMES DAILY (route: oral) Med Classific ation: Central Nervous System Agents famotidine 40 mg tablet 3-16 00:00: 00 12-31 23:59 :00 No [id number] 1 tablet EVERY AM 1 tablet EVERY AM (route: oral) Med Classific ation: Gastroint estinal Therapy Agents Tylenol Arthritis Pain 650 mg tablet,exte nded release 3-21 00:00: 00 12-31 23:59 :00 No [id number] 1 tablet EVERY 8 HOURS 1 tablet EVERY 8 HOURS (route: oral) Med Classific ation: Analgesic , Anti-infl ammatory or Antipyret ic cyclobenzap rine 10 mg tablet 08-05 00:00: 00 09-01 23:59 :00 No [id number] 1 tablet BEDTIME 1 tablet BEDTIME (route: oral) Med Classific ation: Locomotor System meloxicam 15 mg tablet 08-05 00:00: 00 09-01 23:59 :00 No [id number] 1 tablet DAILY 1 tablet DAILY (route: oral) Med Classific ation: Analgesic , Anti-infl ammatory or Antipyret ic cyclobenzap rine 10 mg tablet 09-01 00:00: 00 12-31 23:59 :00 No [id number] 1 tablet BEDTIME 1 tablet BEDTIME (route: oral) Med Classific ation: Locomotor System meloxicam 15 mg tablet 09-01 00:00: 00 12-31 23:59 :00 No [id number] 1 tablet EVERY AM 1 tablet EVERY AM (route: oral) Med Classific ation: Analgesic , Anti-infl ammatory or Antipyret ic trazodone 50 mg tablet 09-01 00:00: 00 12-31 23:59 :00 No [id number] Per instruc tions BEDTIME Per instructio ns BEDTIME (route: oral) Med Classific ation: Central Nervous System Agents erythromyci n 5 mg/gram (0.5 %) eye ointment 2024-03 00:00: 00 Yes [id number] Per instruc tions 4 TIMES DAILY Per instructio ns 4 TIMES DAILY (route: ophthalmic (eye)) Med Classific ation: Ophthalmi c Agents albuterol sulfate HFA 90 mcg/actuati on aerosol inhaler 2024-03 00:00: 00 Yes [id number] 2 puff EVERY 6 HOURS 2 puff EVERY 6 HOURS (route: inhalation ) Med Classific ation: Respirato ry Therapy Agents bupropion HCl XL 300 mg 24 hr tablet, extended release 2024-03 00:00: 00 Yes [id number] 1 tablet EVERY AM 1 tablet EVERY AM (route: oral) Med Classific ation: Central Nervous System Agents carbidopa 25 mg-levodopa 100 mg disintegrat ing tablet 2024-03 00:00: 00 Yes [id number] 1.5 tablet NOON 1.5 tablet NOON (route: oral) Med Classific ation: Central Nervous System Agents carbidopa 25 mg-levodopa 100 mg tablet 2024-03 00:00: 00 Yes [id number] 1.5 tablet EVERY AM 1.5 tablet EVERY AM (route: oral) Med Classific ation: Central Nervous System Agents carbidopa 25 mg-levodopa 100 mg tablet 2024-03 00:00: 00 Yes [id number] 1.5 tablet EVERY PM 1.5 tablet EVERY PM (route: oral) Med Classific ation: Central Nervous System Agents carbidopa 25 mg-levodopa 100 mg tablet 2024-03 00:00: 00 Yes [id number] 1.5 tablet BEDTIME 1.5 tablet BEDTIME (route: oral) Med Classific ation: Central Nervous System Agents cyclobenzap rine 10 mg tablet 2024-03 00:00: 00 Yes [id number] 1 tablet BEDTIME 1 tablet BEDTIME (route: oral) Med Classific ation: Locomotor System famotidine 40 mg tablet 2024-03 00:00: 00 Yes [id number] 1 tablet EVERY AM 1 tablet EVERY AM (route: oral) Med Classific ation: Gastroint estinal Therapy Agents meloxicam 15 mg tablet 2024-03 00:00: 00 Yes [id number] 1 tablet EVERY AM 1 tablet EVERY AM (route: oral) Med Classific ation: Analgesic , Anti-infl ammatory or Antipyret ic paroxetine 40 mg tablet 2024-03 00:00: 00 Yes [id number] 1 tablet EVERY AM 1 tablet EVERY AM (route: oral) Med Classific ation: Central Nervous System Agents trazodone 50 mg tablet 2024-03 00:00: 00 Yes [id number] 1 tablet BEDTIME 1 tablet BEDTIME (route: oral) Med Classific ation: Central Nervous System Agents Tylenol Arthritis Pain 650 mg tablet,exte nded release 2024-03 0-23 00:00: 00 Yes [id number] 1 tablet EVERY 8 HOURS 1 tablet EVERY 8 HOURS (route: oral) Med Classific ation: Analgesic , Anti-infl ammatory or Antipyret ic Farxiga 5 mg tablet 2024-03 1-03 00:00: 00 Yes [id number] 1 tablet EVERY AM 1 tablet EVERY [...] AWARENESS FOR SAFETY AND WILL NOTIFY CLINICAL HAT SIZER AND PHYSICIAN/PROVIDER WITH ANY CHANGE IN CONDITION. [code = SKILLED NURSE WILL MAINTAIN SITUATIONAL AWARENESS FOR SAFETY AND WILL NOTIFY CLINICAL HAT SIZER AND PHYSICIAN/PROVIDER WITH ANY CHANGE IN CONDITION.] [...] CLEAN AND NEATLY DRESSED IN KITCHEN WITH UPHOLSTERY REPAIRER PRESENT D/T MOUSE PROBLEM. 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
--- OUTSIDE RECORDS SUMMARY | 2025-03-18 19:00 | XMS_ITS | Clinical Summary ---
Author Organization Unknown Care Team Providers Care Director [employer] Name Role Phone YAIMA RASMUSSEN, KAVITA BEST Unavailable Unamirella SPEARS RN, SNEHAL Unavailable Unavailable Payers Payer Name Policy Type Policy Number Effective Date Expira tion Date [employer] MEDICARE ADVANTAGE FFS [id number] MEDICARE - [place]GM [id number] Problems Condition Name Condition Details Condition Category [...] 06-25 00:00: 00 12-31 23:59 :00 No [id number] 2 puff DIRECTED 2 puff DIRECTED (route: inhalation ) Med Classific ation: Respirato ry Therapy Agents bupropion HCl XL 300 mg 24 hr tablet, extended release 06-25 00:00: 00 12-31 23:59 :00 No [id number] 1 tablet DAILY 1 tablet DAILY (route: oral) Med Classific ation: Central Nervous System Agents carbidopa 25 mg-levodopa 100 mg tablet 417 00:00: 00 12-31 23:59 :00 No [id number] 1.5 tablet 4 TIMES DAILY 1.5 tablet 4 TIMES DAILY (route: oral) Med Classific ation: Central Nervous System Agents famotidine 40 mg tablet 417 00:00: 00 09-01 23:59 :00 No [id number] 1 tablet DAILY 1 tablet DAILY (route: oral) Med Classific ation: Gastroint estinal Therapy Agents paroxetine 40 mg tablet 17 00:00: 00 12-31 23:59 :00 No [id number] 1 tablet DAILY 1 tablet DAILY (route: oral) Med Classific ation: Central Nervous System Agents trazodone 50 mg tablet 06-25 00:00: 00 09-01 23:59 :00 No [id number] Per instruc tions BEDTIME Per instructio ns BEDTIME (route: oral) Med Classific ation: Central Nervous System Agents gabapentin 100 mg capsule -24 00:00: 00 09-01 23:59 :00 No [id number] pain Per instruc tions BEDTIME Per instructio ns BEDTIME (route: oral) Med Classific ation: Central Nervous System Agents omeprazole 40 mg capsule,del ayed release -24 00:00: 00 05-20 23:59 :00 No [id number] 1 capsule DAILY 1 capsule DAILY (route: oral) Med Classific ation: Gastroint estinal Therapy Agents gabapentin 100 mg capsule 2023-03 0- 00:00: 00 09-01 23:59 :00 No [id number] Per instruc tions 2 TIMES DAILY Per instructio ns 2 TIMES DAILY (route: oral) Med Classific ation: Central Nervous System Agents famotidine 40 mg tablet 3-16 00:00: 00 12-31 23:59 :00 No [id number] 1 tablet EVERY AM 1 tablet EVERY AM (route: oral) Med Classific ation: Gastroint estinal Therapy Agents Tylenol Arthritis Pain 650 mg tablet,exte nded release 3-21 00:00: 00 12-31 23:59 :00 No [id number] 1 tablet EVERY 8 HOURS 1 tablet EVERY 8 HOURS (route: oral) Med Classific ation: Analgesic , Anti-infl ammatory or Antipyret ic cyclobenzap rine 10 mg tablet 08-05 00:00: 00 09-01 23:59 :00 No [id number] 1 tablet BEDTIME 1 tablet BEDTIME (route: oral) Med Classific ation: Locomotor System meloxicam 15 mg tablet 08-05 00:00: 00 09-01 23:59 :00 No [id number] 1 tablet DAILY 1 tablet DAILY (route: oral) Med Classific ation: Analgesic , Anti-infl ammatory or Antipyret ic cyclobenzap rine 10 mg tablet 09-01 00:00: 00 12-31 23:59 :00 No [id number] 1 tablet BEDTIME 1 tablet BEDTIME (route: oral) Med Classific ation: Locomotor System meloxicam 15 mg tablet 09-01 00:00: 00 12-31 23:59 :00 No [id number] 1 tablet EVERY AM 1 tablet EVERY AM (route: oral) Med Classific ation: Analgesic , Anti-infl ammatory or Antipyret ic trazodone 50 mg tablet 09-01 00:00: 00 12-31 23:59 :00 No [id number] Per instruc tions BEDTIME Per instructio ns BEDTIME (route: oral) Med Classific ation: Central Nervous System Agents erythromyci n 5 mg/gram (0.5 %) eye ointment 2024-03 00:00: 00 Yes [id number] Per instruc tions 4 TIMES DAILY Per instructio ns 4 TIMES DAILY (route: ophthalmic (eye)) Med Classific ation: Ophthalmi c Agents albuterol sulfate HFA 90 mcg/actuati on aerosol inhaler 2024-03 00:00: 00 Yes [id number] 2 puff EVERY 6 HOURS 2 puff EVERY 6 HOURS (route: inhalation ) Med Classific ation: Respirato ry Therapy Agents bupropion HCl XL 300 mg 24 hr tablet, extended release 2024-03 00:00: 00 Yes [id number] 1 tablet EVERY AM 1 tablet EVERY AM (route: oral) Med Classific ation: Central Nervous System Agents carbidopa 25 mg-levodopa 100 mg disintegrat ing tablet 2024-03 00:00: 00 Yes [id number] 1.5 tablet NOON 1.5 tablet NOON (route: oral) Med Classific ation: Central Nervous System Agents carbidopa 25 mg-levodopa 100 mg tablet 2024-03 00:00: 00 Yes [id number] 1.5 tablet EVERY AM 1.5 tablet EVERY AM (route: oral) Med Classific ation: Central Nervous System Agents carbidopa 25 mg-levodopa 100 mg tablet 2024-03 00:00: 00 Yes [id number] 1.5 tablet EVERY PM 1.5 tablet EVERY PM (route: oral) Med Classific ation: Central Nervous System Agents carbidopa 25 mg-levodopa 100 mg tablet 2024-03 00:00: 00 Yes [id number] 1.5 tablet BEDTIME 1.5 tablet BEDTIME (route: oral) Med Classific ation: Central Nervous System Agents cyclobenzap rine 10 mg tablet 2024-03 00:00: 00 Yes [id number] 1 tablet BEDTIME 1 tablet BEDTIME (route: oral) Med Classific ation: Locomotor System famotidine 40 mg tablet 2024-03 00:00: 00 Yes [id number] 1 tablet EVERY AM 1 tablet EVERY AM (route: oral) Med Classific ation: Gastroint estinal Therapy Agents meloxicam 15 mg tablet 2024-03 00:00: 00 Yes [id number] 1 tablet EVERY AM 1 tablet EVERY AM (route: oral) Med Classific ation: Analgesic , Anti-infl ammatory or Antipyret ic paroxetine 40 mg tablet 2024-03 00:00: 00 Yes [id number] 1 tablet EVERY AM 1 tablet EVERY AM (route: oral) Med Classific ation: Central Nervous System Agents trazodone 50 mg tablet 2024-03 00:00: 00 Yes [id number] 1 tablet BEDTIME 1 tablet BEDTIME (route: oral) Med Classific ation: Central Nervous System Agents Tylenol Arthritis Pain 650 mg tablet,exte nded release 2024-03 0-23 00:00: 00 Yes [id number] 1 tablet EVERY 8 HOURS 1 tablet EVERY 8 HOURS (route: oral) Med Classific ation: Analgesic , Anti-infl ammatory or Antipyret ic Farxiga 5 mg tablet 2024-03 1-03 00:00: 00 Yes [id number] 1 tablet EVERY AM 1 tablet EVERY [...] AWARENESS FOR SAFETY AND WILL NOTIFY CLINICAL ROLL HAND AND PHYSICIAN/PROVIDER WITH ANY CHANGE IN CONDITION. 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
--- OUTSIDE RECORDS SUMMARY | 2025-03-18 19:00 | XMS_ITS | Clinical Summary ---
Author Organization Unknown Care Team Providers Care Manager Gift Name Role Phone YAIMA RASMUSSEN, KAVITA BEST Unavailable Unamirella SPEARS RN, SNEHAL Unavailable Unavailable Payers Payer Name Policy Type Policy Number Effective Date Expira tion Date [employer] MEDICARE ADVANTAGE FFS [id number] MEDICARE - [place]GM [id number] Problems Condition Name Condition Details Condition Category [...] 06-25 00:00: 00 12-31 23:59 :00 No [id number] 2 puff DIRECTED 2 puff DIRECTED (route: inhalation ) Med Classific ation: Respirato ry Therapy Agents bupropion HCl XL 300 mg 24 hr tablet, extended release 06-25 00:00: 00 12-31 23:59 :00 No [id number] 1 tablet DAILY 1 tablet DAILY (route: oral) Med Classific ation: Central Nervous System Agents carbidopa 25 mg-levodopa 100 mg tablet 417 00:00: 00 12-31 23:59 :00 No [id number] 1.5 tablet 4 TIMES DAILY 1.5 tablet 4 TIMES DAILY (route: oral) Med Classific ation: Central Nervous System Agents famotidine 40 mg tablet 417 00:00: 00 09-01 23:59 :00 No [id number] 1 tablet DAILY 1 tablet DAILY (route: oral) Med Classific ation: Gastroint estinal Therapy Agents paroxetine 40 mg tablet 17 00:00: 00 12-31 23:59 :00 No [id number] 1 tablet DAILY 1 tablet DAILY (route: oral) Med Classific ation: Central Nervous System Agents trazodone 50 mg tablet 06-25 00:00: 00 09-01 23:59 :00 No [id number] Per instruc tions BEDTIME Per instructio ns BEDTIME (route: oral) Med Classific ation: Central Nervous System Agents gabapentin 100 mg capsule -24 00:00: 00 09-01 23:59 :00 No [id number] pain Per instruc tions BEDTIME Per instructio ns BEDTIME (route: oral) Med Classific ation: Central Nervous System Agents omeprazole 40 mg capsule,del ayed release -24 00:00: 00 05-20 23:59 :00 No [id number] 1 capsule DAILY 1 capsule DAILY (route: oral) Med Classific ation: Gastroint estinal Therapy Agents gabapentin 100 mg capsule 2023-03 0- 00:00: 00 09-01 23:59 :00 No [id number] Per instruc tions 2 TIMES DAILY Per instructio ns 2 TIMES DAILY (route: oral) Med Classific ation: Central Nervous System Agents famotidine 40 mg tablet 3-16 00:00: 00 12-31 23:59 :00 No [id number] 1 tablet EVERY AM 1 tablet EVERY AM (route: oral) Med Classific ation: Gastroint estinal Therapy Agents Tylenol Arthritis Pain 650 mg tablet,exte nded release 3-21 00:00: 00 12-31 23:59 :00 No [id number] 1 tablet EVERY 8 HOURS 1 tablet EVERY 8 HOURS (route: oral) Med Classific ation: Analgesic , Anti-infl ammatory or Antipyret ic cyclobenzap rine 10 mg tablet 08-05 00:00: 00 09-01 23:59 :00 No [id number] 1 tablet BEDTIME 1 tablet BEDTIME (route: oral) Med Classific ation: Locomotor System meloxicam 15 mg tablet 08-05 00:00: 00 09-01 23:59 :00 No [id number] 1 tablet DAILY 1 tablet DAILY (route: oral) Med Classific ation: Analgesic , Anti-infl ammatory or Antipyret ic cyclobenzap rine 10 mg tablet 09-01 00:00: 00 12-31 23:59 :00 No [id number] 1 tablet BEDTIME 1 tablet BEDTIME (route: oral) Med Classific ation: Locomotor System meloxicam 15 mg tablet 09-01 00:00: 00 12-31 23:59 :00 No [id number] 1 tablet EVERY AM 1 tablet EVERY AM (route: oral) Med Classific ation: Analgesic , Anti-infl ammatory or Antipyret ic trazodone 50 mg tablet 09-01 00:00: 00 12-31 23:59 :00 No [id number] Per instruc tions BEDTIME Per instructio ns BEDTIME (route: oral) Med Classific ation: Central Nervous System Agents erythromyci n 5 mg/gram (0.5 %) eye ointment 2024-03 00:00: 00 Yes [id number] Per instruc tions 4 TIMES DAILY Per instructio ns 4 TIMES DAILY (route: ophthalmic (eye)) Med Classific ation: Ophthalmi c Agents albuterol sulfate HFA 90 mcg/actuati on aerosol inhaler 2024-03 00:00: 00 Yes [id number] 2 puff EVERY 6 HOURS 2 puff EVERY 6 HOURS (route: inhalation ) Med Classific ation: Respirato ry Therapy Agents bupropion HCl XL 300 mg 24 hr tablet, extended release 2024-03 00:00: 00 Yes [id number] 1 tablet EVERY AM 1 tablet EVERY AM (route: oral) Med Classific ation: Central Nervous System Agents carbidopa 25 mg-levodopa 100 mg disintegrat ing tablet 2024-03 00:00: 00 Yes [id number] 1.5 tablet NOON 1.5 tablet NOON (route: oral) Med Classific ation: Central Nervous System Agents carbidopa 25 mg-levodopa 100 mg tablet 2024-03 00:00: 00 Yes [id number] 1.5 tablet EVERY AM 1.5 tablet EVERY AM (route: oral) Med Classific ation: Central Nervous System Agents carbidopa 25 mg-levodopa 100 mg tablet 2024-03 00:00: 00 Yes [id number] 1.5 tablet EVERY PM 1.5 tablet EVERY PM (route: oral) Med Classific ation: Central Nervous System Agents carbidopa 25 mg-levodopa 100 mg tablet 2024-03 00:00: 00 Yes [id number] 1.5 tablet BEDTIME 1.5 tablet BEDTIME (route: oral) Med Classific ation: Central Nervous System Agents cyclobenzap rine 10 mg tablet 2024-03 00:00: 00 Yes [id number] 1 tablet BEDTIME 1 tablet BEDTIME (route: oral) Med Classific ation: Locomotor System famotidine 40 mg tablet 2024-03 00:00: 00 Yes [id number] 1 tablet EVERY AM 1 tablet EVERY AM (route: oral) Med Classific ation: Gastroint estinal Therapy Agents meloxicam 15 mg tablet 2024-03 00:00: 00 Yes [id number] 1 tablet EVERY AM 1 tablet EVERY AM (route: oral) Med Classific ation: Analgesic , Anti-infl ammatory or Antipyret ic paroxetine 40 mg tablet 2024-03 00:00: 00 Yes [id number] 1 tablet EVERY AM 1 tablet EVERY AM (route: oral) Med Classific ation: Central Nervous System Agents trazodone 50 mg tablet 2024-03 00:00: 00 Yes [id number] 1 tablet BEDTIME 1 tablet BEDTIME (route: oral) Med Classific ation: Central Nervous System Agents Tylenol Arthritis Pain 650 mg tablet,exte nded release 2024-03 0-23 00:00: 00 Yes [id number] 1 tablet EVERY 8 HOURS 1 tablet EVERY 8 HOURS (route: oral) Med Classific ation: Analgesic , Anti-infl ammatory or Antipyret ic Farxiga 5 mg tablet 2024-03 1-03 00:00: 00 Yes [id number] 1 tablet EVERY AM 1 tablet EVERY [...] AWARENESS FOR SAFETY AND WILL NOTIFY CLINICAL TISSUE INSERTER AND PHYSICIAN/PROVIDER WITH ANY CHANGE IN CONDITION. [code = SKILLED NURSE WILL MAINTAIN SITUATIONAL AWARENESS FOR SAFETY AND WILL NOTIFY CLINICAL TISSUE INSERTER AND PHYSICIAN/PROVIDER WITH ANY CHANGE IN CONDITION.] [...] CLEAN AND NEATLY DRESSED IN KITCHEN WITH CYCLE TOURING GUIDE PRESENT D/T MOUSE PROBLEM. 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
--- OUTSIDE RECORDS SUMMARY | 2025-03-18 19:00 | XMS_ITS | Clinical Summary ---
Author Organization Unknown Care Team Providers Care Tallow Maker Name Role Phone YAIMA RASMUSSEN, KAVITA BEST Unavailable Unamirella SPEARS RN, SNEHAL Unavailable Unavailable Payers Payer Name Policy Type Policy Number Effective Date Expira tion Date [employer] MEDICARE ADVANTAGE FFS [id number] MEDICARE - [place] PDGM [id number] Problems Condition Name Condition Details Condition Category [...] 06-25 00:00: 00 12-31 23:59 :00 No [id number] 2 puff DIRECTED 2 puff DIRECTED (route: inhalation ) Med Classific ation: Respirato ry Therapy Agents bupropion HCl XL 300 mg 24 hr tablet, extended release 06-25 00:00: 00 12-31 23:59 :00 No [id number] 1 tablet DAILY 1 tablet DAILY (route: oral) Med Classific ation: Central Nervous System Agents carbidopa 25 mg-levodopa 100 mg tablet 417 00:00: 00 12-31 23:59 :00 No [id number] 1.5 tablet 4 TIMES DAILY 1.5 tablet 4 TIMES DAILY (route: oral) Med Classific ation: Central Nervous System Agents famotidine 40 mg tablet 417 00:00: 00 09-01 23:59 :00 No [id number] 1 tablet DAILY 1 tablet DAILY (route: oral) Med Classific ation: Gastroint estinal Therapy Agents paroxetine 40 mg tablet 17 00:00: 00 12-31 23:59 :00 No [id number] 1 tablet DAILY 1 tablet DAILY (route: oral) Med Classific ation: Central Nervous System Agents trazodone 50 mg tablet 06-25 00:00: 00 09-01 23:59 :00 No [id number] Per instruc tions BEDTIME Per instructio ns BEDTIME (route: oral) Med Classific ation: Central Nervous System Agents gabapentin 100 mg capsule -24 00:00: 00 09-01 23:59 :00 No [id number] pain Per instruc tions BEDTIME Per instructio ns BEDTIME (route: oral) Med Classific ation: Central Nervous System Agents omeprazole 40 mg capsule,del ayed release -24 00:00: 00 05-20 23:59 :00 No [id number] 1 capsule DAILY 1 capsule DAILY (route: oral) Med Classific ation: Gastroint estinal Therapy Agents gabapentin 100 mg capsule 2023-03 0- 00:00: 00 09-01 23:59 :00 No [id number] Per instruc tions 2 TIMES DAILY Per instructio ns 2 TIMES DAILY (route: oral) Med Classific ation: Central Nervous System Agents famotidine 40 mg tablet 3-16 00:00: 00 12-31 23:59 :00 No [id number] 1 tablet EVERY AM 1 tablet EVERY AM (route: oral) Med Classific ation: Gastroint estinal Therapy Agents Tylenol Arthritis Pain 650 mg tablet,exte nded release 3-21 00:00: 00 12-31 23:59 :00 No [id number] 1 tablet EVERY 8 HOURS 1 tablet EVERY 8 HOURS (route: oral) Med Classific ation: Analgesic , Anti-infl ammatory or Antipyret ic cyclobenzap rine 10 mg tablet 08-05 00:00: 00 09-01 23:59 :00 No [id number] 1 tablet BEDTIME 1 tablet BEDTIME (route: oral) Med Classific ation: Locomotor System meloxicam 15 mg tablet 08-05 00:00: 00 09-01 23:59 :00 No [id number] 1 tablet DAILY 1 tablet DAILY (route: oral) Med Classific ation: Analgesic , Anti-infl ammatory or Antipyret ic cyclobenzap rine 10 mg tablet 09-01 00:00: 00 12-31 23:59 :00 No [id number] 1 tablet BEDTIME 1 tablet BEDTIME (route: oral) Med Classific ation: Locomotor System meloxicam 15 mg tablet 09-01 00:00: 00 12-31 23:59 :00 No [id number] 1 tablet EVERY AM 1 tablet EVERY AM (route: oral) Med Classific ation: Analgesic , Anti-infl ammatory or Antipyret ic trazodone 50 mg tablet 09-01 00:00: 00 12-31 23:59 :00 No [id number] Per instruc tions BEDTIME Per instructio ns BEDTIME (route: oral) Med Classific ation: Central Nervous System Agents erythromyci n 5 mg/gram (0.5 %) eye ointment 2024-03 00:00: 00 Yes [id number] Per instruc tions 4 TIMES DAILY Per instructio ns 4 TIMES DAILY (route: ophthalmic (eye)) Med Classific ation: Ophthalmi c Agents albuterol sulfate HFA 90 mcg/actuati on aerosol inhaler 2024-03 00:00: 00 Yes [id number] 2 puff EVERY 6 HOURS 2 puff EVERY 6 HOURS (route: inhalation ) Med Classific ation: Respirato ry Therapy Agents bupropion HCl XL 300 mg 24 hr tablet, extended release 2024-03 00:00: 00 Yes [id number] 1 tablet EVERY AM 1 tablet EVERY AM (route: oral) Med Classific ation: Central Nervous System Agents carbidopa 25 mg-levodopa 100 mg disintegrat ing tablet 2024-03 00:00: 00 Yes [id number] 1.5 tablet NOON 1.5 tablet NOON (route: oral) Med Classific ation: Central Nervous System Agents carbidopa 25 mg-levodopa 100 mg tablet 2024-03 00:00: 00 Yes [id number] 1.5 tablet EVERY AM 1.5 tablet EVERY AM (route: oral) Med Classific ation: Central Nervous System Agents carbidopa 25 mg-levodopa 100 mg tablet 2024-03 00:00: 00 Yes [id number] 1.5 tablet EVERY PM 1.5 tablet EVERY PM (route: oral) Med Classific ation: Central Nervous System Agents carbidopa 25 mg-levodopa 100 mg tablet 2024-03 00:00: 00 Yes [id number] 1.5 tablet BEDTIME 1.5 tablet BEDTIME (route: oral) Med Classific ation: Central Nervous System Agents cyclobenzap rine 10 mg tablet 2024-03 00:00: 00 Yes [id number] 1 tablet BEDTIME 1 tablet BEDTIME (route: oral) Med Classific ation: Locomotor System famotidine 40 mg tablet 2024-03 00:00: 00 Yes [id number] 1 tablet EVERY AM 1 tablet EVERY AM (route: oral) Med Classific ation: Gastroint estinal Therapy Agents meloxicam 15 mg tablet 2024-03 00:00: 00 Yes [id number] 1 tablet EVERY AM 1 tablet EVERY AM (route: oral) Med Classific ation: Analgesic , Anti-infl ammatory or Antipyret ic paroxetine 40 mg tablet 2024-03 00:00: 00 Yes [id number] 1 tablet EVERY AM 1 tablet EVERY AM (route: oral) Med Classific ation: Central Nervous System Agents trazodone 50 mg tablet 2024-03 00:00: 00 Yes [id number] 1 tablet BEDTIME 1 tablet BEDTIME (route: oral) Med Classific ation: Central Nervous System Agents Tylenol Arthritis Pain 650 mg tablet,exte nded release 2024-03 0-23 00:00: 00 Yes [id number] 1 tablet EVERY 8 HOURS 1 tablet EVERY 8 HOURS (route: oral) Med Classific ation: Analgesic , Anti-infl ammatory or Antipyret ic Farxiga 5 mg tablet 2024-03 1-03 00:00: 00 Yes [id number] 1 tablet EVERY AM 1 tablet EVERY [...] AWARENESS FOR SAFETY AND WILL NOTIFY CLINICAL UNDERBASTER AND PHYSICIAN/PROVIDER WITH ANY CHANGE IN CONDITION. [code = SKILLED NURSE WILL MAINTAIN SITUATIONAL AWARENESS FOR SAFETY AND WILL NOTIFY CLINICAL UNDERBASTER AND PHYSICIAN/PROVIDER WITH ANY CHANGE IN CONDITION.] [...] CLEAN AND NEATLY DRESSED IN KITCHEN WITH SEO ENGINEER PRESENT D/T MOUSE PROBLEM. HER HOME [...] WITH HER MED PP PER HER MED TUBULAR RIVETER AND DENIES ANY ADVERSE EFFECTS.</paragraph> Encounters Start Date/Time End Date/Time Encounter Type Admission Type Attending Clinicians Care Facility Care Department Encounter ID Discharge Date Discharge Status Discharge Condition Discharge Reason Percent Goals Met 2025-01-19 00:00:00 2025-03-19 00:00:00 Outpatient [facility] ATS[facility]HAL VELA [facility] [id number] 76.00
--- OUTSIDE RECORDS SUMMARY | 2025-03-18 19:00 | XMS_ITS | Clinical Summary ---
Author Organization Unknown Care Team Providers Care Administrative Assistant Data Entry Name Role Phone YAIMA RASMUSSEN, KAVITA BEST Unavailable Unamirella SPEARS RN, SNEHAL Unavailable Unavailable Payers Payer Name Policy Type Policy Number Effective Date Expira tion Date [employer] MEDICARE ADVANTAGE FFS [id number] MEDICARE - [place]GM [id number] Problems Condition Name Condition Details Condition Category [...] 06-25 00:00: 00 12-31 23:59 :00 No [id number] 2 puff DIRECTED 2 puff DIRECTED (route: inhalation ) Med Classific ation: Respirato ry Therapy Agents bupropion HCl XL 300 mg 24 hr tablet, extended release 06-25 00:00: 00 12-31 23:59 :00 No [id number] 1 tablet DAILY 1 tablet DAILY (route: oral) Med Classific ation: Central Nervous System Agents carbidopa 25 mg-levodopa 100 mg tablet 417 00:00: 00 12-31 23:59 :00 No [id number] 1.5 tablet 4 TIMES DAILY 1.5 tablet 4 TIMES DAILY (route: oral) Med Classific ation: Central Nervous System Agents famotidine 40 mg tablet 417 00:00: 00 09-01 23:59 :00 No [id number] 1 tablet DAILY 1 tablet DAILY (route: oral) Med Classific ation: Gastroint estinal Therapy Agents paroxetine 40 mg tablet 17 00:00: 00 12-31 23:59 :00 No [id number] 1 tablet DAILY 1 tablet DAILY (route: oral) Med Classific ation: Central Nervous System Agents trazodone 50 mg tablet 06-25 00:00: 00 09-01 23:59 :00 No [id number] Per instruc tions BEDTIME Per instructio ns BEDTIME (route: oral) Med Classific ation: Central Nervous System Agents gabapentin 100 mg capsule -24 00:00: 00 09-01 23:59 :00 No [id number] pain Per instruc tions BEDTIME Per instructio ns BEDTIME (route: oral) Med Classific ation: Central Nervous System Agents omeprazole 40 mg capsule,del ayed release -24 00:00: 00 05-20 23:59 :00 No [id number] 1 capsule DAILY 1 capsule DAILY (route: oral) Med Classific ation: Gastroint estinal Therapy Agents gabapentin 100 mg capsule 2023-03 0- 00:00: 00 09-01 23:59 :00 No [id number] Per instruc tions 2 TIMES DAILY Per instructio ns 2 TIMES DAILY (route: oral) Med Classific ation: Central Nervous System Agents famotidine 40 mg tablet 3-16 00:00: 00 12-31 23:59 :00 No [id number] 1 tablet EVERY AM 1 tablet EVERY AM (route: oral) Med Classific ation: Gastroint estinal Therapy Agents Tylenol Arthritis Pain 650 mg tablet,exte nded release 3-21 00:00: 00 12-31 23:59 :00 No [id number] 1 tablet EVERY 8 HOURS 1 tablet EVERY 8 HOURS (route: oral) Med Classific ation: Analgesic , Anti-infl ammatory or Antipyret ic cyclobenzap rine 10 mg tablet 08-05 00:00: 00 09-01 23:59 :00 No [id number] 1 tablet BEDTIME 1 tablet BEDTIME (route: oral) Med Classific ation: Locomotor System meloxicam 15 mg tablet 08-05 00:00: 00 09-01 23:59 :00 No [id number] 1 tablet DAILY 1 tablet DAILY (route: oral) Med Classific ation: Analgesic , Anti-infl ammatory or Antipyret ic cyclobenzap rine 10 mg tablet 09-01 00:00: 00 12-31 23:59 :00 No [id number] 1 tablet BEDTIME 1 tablet BEDTIME (route: oral) Med Classific ation: Locomotor System meloxicam 15 mg tablet 09-01 00:00: 00 12-31 23:59 :00 No [id number] 1 tablet EVERY AM 1 tablet EVERY AM (route: oral) Med Classific ation: Analgesic , Anti-infl ammatory or Antipyret ic trazodone 50 mg tablet 09-01 00:00: 00 12-31 23:59 :00 No [id number] Per instruc tions BEDTIME Per instructio ns BEDTIME (route: oral) Med Classific ation: Central Nervous System Agents erythromyci n 5 mg/gram (0.5 %) eye ointment 2024-03 00:00: 00 Yes [id number] Per instruc tions 4 TIMES DAILY Per instructio ns 4 TIMES DAILY (route: ophthalmic (eye)) Med Classific ation: Ophthalmi c Agents albuterol sulfate HFA 90 mcg/actuati on aerosol inhaler 2024-03 00:00: 00 Yes [id number] 2 puff EVERY 6 HOURS 2 puff EVERY 6 HOURS (route: inhalation ) Med Classific ation: Respirato ry Therapy Agents bupropion HCl XL 300 mg 24 hr tablet, extended release 2024-03 00:00: 00 Yes [id number] 1 tablet EVERY AM 1 tablet EVERY AM (route: oral) Med Classific ation: Central Nervous System Agents carbidopa 25 mg-levodopa 100 mg disintegrat ing tablet 2024-03 00:00: 00 Yes [id number] 1.5 tablet NOON 1.5 tablet NOON (route: oral) Med Classific ation: Central Nervous System Agents carbidopa 25 mg-levodopa 100 mg tablet 2024-03 00:00: 00 Yes [id number] 1.5 tablet EVERY AM 1.5 tablet EVERY AM (route: oral) Med Classific ation: Central Nervous System Agents carbidopa 25 mg-levodopa 100 mg tablet 2024-03 00:00: 00 Yes [id number] 1.5 tablet EVERY PM 1.5 tablet EVERY PM (route: oral) Med Classific ation: Central Nervous System Agents carbidopa 25 mg-levodopa 100 mg tablet 2024-03 00:00: 00 Yes [id number] 1.5 tablet BEDTIME 1.5 tablet BEDTIME (route: oral) Med Classific ation: Central Nervous System Agents cyclobenzap rine 10 mg tablet 2024-03 00:00: 00 Yes [id number] 1 tablet BEDTIME 1 tablet BEDTIME (route: oral) Med Classific ation: Locomotor System famotidine 40 mg tablet 2024-03 00:00: 00 Yes [id number] 1 tablet EVERY AM 1 tablet EVERY AM (route: oral) Med Classific ation: Gastroint estinal Therapy Agents meloxicam 15 mg tablet 2024-03 00:00: 00 Yes [id number] 1 tablet EVERY AM 1 tablet EVERY AM (route: oral) Med Classific ation: Analgesic , Anti-infl ammatory or Antipyret ic paroxetine 40 mg tablet 2024-03 00:00: 00 Yes [id number] 1 tablet EVERY AM 1 tablet EVERY AM (route: oral) Med Classific ation: Central Nervous System Agents trazodone 50 mg tablet 2024-03 00:00: 00 Yes [id number] 1 tablet BEDTIME 1 tablet BEDTIME (route: oral) Med Classific ation: Central Nervous System Agents Tylenol Arthritis Pain 650 mg tablet,exte nded release 2024-03 0-23 00:00: 00 Yes [id number] 1 tablet EVERY 8 HOURS 1 tablet EVERY 8 HOURS (route: oral) Med Classific ation: Analgesic , Anti-infl ammatory or Antipyret ic Farxiga 5 mg tablet 2024-03 1-03 00:00: 00 Yes [id number] 1 tablet EVERY AM 1 tablet EVERY [...] AWARENESS FOR SAFETY AND WILL NOTIFY CLINICAL EXHAUST TENDER AND PHYSICIAN/PROVIDER WITH ANY CHANGE IN CONDITION. [code = SKILLED NURSE WILL MAINTAIN SITUATIONAL AWARENESS FOR SAFETY AND WILL NOTIFY CLINICAL EXHAUST TENDER AND PHYSICIAN/PROVIDER WITH ANY CHANGE IN CONDITION.] [...] CLEAN AND NEATLY DRESSED IN KITCHEN WITH EXHIBITIONS AND COLLECTIONS MANAGER PRESENT D/T MOUSE PROBLEM. HER HOME [...] WITH HER MED PP PER HER MED MANAGER INSTALLATION AND DENIES ANY ADVERSE EFFECTS.</paragraph> Encounters Start Date/Time End Date/Time Encounter Type Admission Type Attending Clinicians Care Facility Care Department Encounter ID Discharge Date Discharge Status Discharge Condition Discharge Reason Percent Goals Met 2025-01-19 00:00:00 2025-03-19 00:00:00 Outpatient RECERTIFIC ATSNEHAL VELA [facility] [id number] 76.00
--- OUTSIDE RECORDS SUMMARY | 2025-03-18 19:00 | XMS_ITS | Clinical Summary ---
Author Organization Unknown Care Team Providers Care Enrollment Management Director Name Role Phone YAIMA RASMUSSEN, KAVITA BEST Unavailable Unamirella SPEARS RN, SNEHAL Unavailable Unavailable Payers Payer Name Policy Type Policy Number Effective Date Expira tion Date [employer] MEDICARE ADVANTAGE FFS [id number] MEDICARE - [place] - [place]GM [id number] Problems Condition Name Condition Details Condition Category [...] 06-25 00:00: 00 12-31 23:59 :00 No [id number] 2 puff DIRECTED 2 puff DIRECTED (route: inhalation ) Med Classific ation: Respirato ry Therapy Agents bupropion HCl XL 300 mg 24 hr tablet, extended release 06-25 00:00: 00 12-31 23:59 :00 No [id number] 1 tablet DAILY 1 tablet DAILY (route: oral) Med Classific ation: Central Nervous System Agents carbidopa 25 mg-levodopa 100 mg tablet 417 00:00: 00 12-31 23:59 :00 No [id number] 1.5 tablet 4 TIMES DAILY 1.5 tablet 4 TIMES DAILY (route: oral) Med Classific ation: Central Nervous System Agents famotidine 40 mg tablet 417 00:00: 00 09-01 23:59 :00 No [id number] 1 tablet DAILY 1 tablet DAILY (route: oral) Med Classific ation: Gastroint estinal Therapy Agents paroxetine 40 mg tablet 17 00:00: 00 12-31 23:59 :00 No [id number] 1 tablet DAILY 1 tablet DAILY (route: oral) Med Classific ation: Central Nervous System Agents trazodone 50 mg tablet 06-25 00:00: 00 09-01 23:59 :00 No [id number] Per instruc tions BEDTIME Per instructio ns BEDTIME (route: oral) Med Classific ation: Central Nervous System Agents gabapentin 100 mg capsule -24 00:00: 00 09-01 23:59 :00 No [id number] pain Per instruc tions BEDTIME Per instructio ns BEDTIME (route: oral) Med Classific ation: Central Nervous System Agents omeprazole 40 mg capsule,del ayed release -24 00:00: 00 05-20 23:59 :00 No [id number] 1 capsule DAILY 1 capsule DAILY (route: oral) Med Classific ation: Gastroint estinal Therapy Agents gabapentin 100 mg capsule 2023-03 0- 00:00: 00 09-01 23:59 :00 No [id number] Per instruc tions 2 TIMES DAILY Per instructio ns 2 TIMES DAILY (route: oral) Med Classific ation: Central Nervous System Agents famotidine 40 mg tablet 3-16 00:00: 00 12-31 23:59 :00 No [id number] 1 tablet EVERY AM 1 tablet EVERY AM (route: oral) Med Classific ation: Gastroint estinal Therapy Agents Tylenol Arthritis Pain 650 mg tablet,exte nded release 3-21 00:00: 00 12-31 23:59 :00 No [id number] 1 tablet EVERY 8 HOURS 1 tablet EVERY 8 HOURS (route: oral) Med Classific ation: Analgesic , Anti-infl ammatory or Antipyret ic cyclobenzap rine 10 mg tablet 08-05 00:00: 00 09-01 23:59 :00 No [id number] 1 tablet BEDTIME 1 tablet BEDTIME (route: oral) Med Classific ation: Locomotor System meloxicam 15 mg tablet 08-05 00:00: 00 09-01 23:59 :00 No [id number] 1 tablet DAILY 1 tablet DAILY (route: oral) Med Classific ation: Analgesic , Anti-infl ammatory or Antipyret ic cyclobenzap rine 10 mg tablet 09-01 00:00: 00 12-31 23:59 :00 No [id number] 1 tablet BEDTIME 1 tablet BEDTIME (route: oral) Med Classific ation: Locomotor System meloxicam 15 mg tablet 09-01 00:00: 00 12-31 23:59 :00 No [id number] 1 tablet EVERY AM 1 tablet EVERY AM (route: oral) Med Classific ation: Analgesic , Anti-infl ammatory or Antipyret ic trazodone 50 mg tablet 09-01 00:00: 00 12-31 23:59 :00 No [id number] Per instruc tions BEDTIME Per instructio ns BEDTIME (route: oral) Med Classific ation: Central Nervous System Agents erythromyci n 5 mg/gram (0.5 %) eye ointment 2024-03 00:00: 00 Yes [id number] Per instruc tions 4 TIMES DAILY Per instructio ns 4 TIMES DAILY (route: ophthalmic (eye)) Med Classific ation: Ophthalmi c Agents albuterol sulfate HFA 90 mcg/actuati on aerosol inhaler 2024-03 00:00: 00 Yes [id number] 2 puff EVERY 6 HOURS 2 puff EVERY 6 HOURS (route: inhalation ) Med Classific ation: Respirato ry Therapy Agents bupropion HCl XL 300 mg 24 hr tablet, extended release 2024-03 00:00: 00 Yes [id number] 1 tablet EVERY AM 1 tablet EVERY AM (route: oral) Med Classific ation: Central Nervous System Agents carbidopa 25 mg-levodopa 100 mg disintegrat ing tablet 2024-03 00:00: 00 Yes [id number] 1.5 tablet NOON 1.5 tablet NOON (route: oral) Med Classific ation: Central Nervous System Agents carbidopa 25 mg-levodopa 100 mg tablet 2024-03 00:00: 00 Yes [id number] 1.5 tablet EVERY AM 1.5 tablet EVERY AM (route: oral) Med Classific ation: Central Nervous System Agents carbidopa 25 mg-levodopa 100 mg tablet 2024-03 00:00: 00 Yes [id number] 1.5 tablet EVERY PM 1.5 tablet EVERY PM (route: oral) Med Classific ation: Central Nervous System Agents carbidopa 25 mg-levodopa 100 mg tablet 2024-03 00:00: 00 Yes [id number] 1.5 tablet BEDTIME 1.5 tablet BEDTIME (route: oral) Med Classific ation: Central Nervous System Agents cyclobenzap rine 10 mg tablet 2024-03 00:00: 00 Yes [id number] 1 tablet BEDTIME 1 tablet BEDTIME (route: oral) Med Classific ation: Locomotor System famotidine 40 mg tablet 2024-03 00:00: 00 Yes [id number] 1 tablet EVERY AM 1 tablet EVERY AM (route: oral) Med Classific ation: Gastroint estinal Therapy Agents meloxicam 15 mg tablet 2024-03 00:00: 00 Yes [id number] 1 tablet EVERY AM 1 tablet EVERY AM (route: oral) Med Classific ation: Analgesic , Anti-infl ammatory or Antipyret ic paroxetine 40 mg tablet 2024-03 00:00: 00 Yes [id number] 1 tablet EVERY AM 1 tablet EVERY AM (route: oral) Med Classific ation: Central Nervous System Agents trazodone 50 mg tablet 2024-03 00:00: 00 Yes [id number] 1 tablet BEDTIME 1 tablet BEDTIME (route: oral) Med Classific ation: Central Nervous System Agents Tylenol Arthritis Pain 650 mg tablet,exte nded release 2024-03 0-23 00:00: 00 Yes [id number] 1 tablet EVERY 8 HOURS 1 tablet EVERY 8 HOURS (route: oral) Med Classific ation: Analgesic , Anti-infl ammatory or Antipyret ic Farxiga 5 mg tablet 2024-03 1-03 00:00: 00 Yes [id number] 1 tablet EVERY AM 1 tablet EVERY [...] AWARENESS FOR SAFETY AND WILL NOTIFY CLINICAL DIRECTOR CALL AND PHYSICIAN/PROVIDER WITH ANY CHANGE IN CONDITION. [code = SKILLED NURSE WILL MAINTAIN SITUATIONAL AWARENESS FOR SAFETY AND WILL NOTIFY CLINICAL DIRECTOR CALL AND PHYSICIAN/PROVIDER WITH ANY CHANGE IN CONDITION.] [...] CLEAN AND NEATLY DRESSED IN KITCHEN WITH APPLICATIONS SUPPORT LEAD PRESENT D/T MOUSE PROBLEM. 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
--- OUTSIDE RECORDS SUMMARY | 2025-03-18 19:00 | XMS_ITS | Clinical Summary ---
Author Organization Unknown Care Team Providers Care Testing Shaking Shipping Name Role Phone YAIMA RASMUSSEN, KAVITA BEST Unavailable Unamirella SPEARS RN, SNEHAL Unavailable Unavailable Payers Payer Name Policy Type Policy Number Effective Date Expira tion Date [employer] MEDICARE ADVANTAGE FFS [id number] MEDICARE - [place] [id number] Problems Condition Name Condition Details Condition Category [...] 06-25 00:00: 00 12-31 23:59 :00 No [id number] 2 puff DIRECTED 2 puff DIRECTED (route: inhalation ) Med Classific ation: Respirato ry Therapy Agents bupropion HCl XL 300 mg 24 hr tablet, extended release 06-25 00:00: 00 12-31 23:59 :00 No [id number] 1 tablet DAILY 1 tablet DAILY (route: oral) Med Classific ation: Central Nervous System Agents carbidopa 25 mg-levodopa 100 mg tablet 417 00:00: 00 12-31 23:59 :00 No [id number] 1.5 tablet 4 TIMES DAILY 1.5 tablet 4 TIMES DAILY (route: oral) Med Classific ation: Central Nervous System Agents famotidine 40 mg tablet 417 00:00: 00 09-01 23:59 :00 No [id number] 1 tablet DAILY 1 tablet DAILY (route: oral) Med Classific ation: Gastroint estinal Therapy Agents paroxetine 40 mg tablet 17 00:00: 00 12-31 23:59 :00 No [id number] 1 tablet DAILY 1 tablet DAILY (route: oral) Med Classific ation: Central Nervous System Agents trazodone 50 mg tablet 06-25 00:00: 00 09-01 23:59 :00 No [id number] Per instruc tions BEDTIME Per instructio ns BEDTIME (route: oral) Med Classific ation: Central Nervous System Agents gabapentin 100 mg capsule -24 00:00: 00 09-01 23:59 :00 No [id number] pain Per instruc tions BEDTIME Per instructio ns BEDTIME (route: oral) Med Classific ation: Central Nervous System Agents omeprazole 40 mg capsule,del ayed release -24 00:00: 00 05-20 23:59 :00 No [id number] 1 capsule DAILY 1 capsule DAILY (route: oral) Med Classific ation: Gastroint estinal Therapy Agents gabapentin 100 mg capsule 2023-03 0- 00:00: 00 09-01 23:59 :00 No [id number] Per instruc tions 2 TIMES DAILY Per instructio ns 2 TIMES DAILY (route: oral) Med Classific ation: Central Nervous System Agents famotidine 40 mg tablet 3-16 00:00: 00 12-31 23:59 :00 No [id number] 1 tablet EVERY AM 1 tablet EVERY AM (route: oral) Med Classific ation: Gastroint estinal Therapy Agents Tylenol Arthritis Pain 650 mg tablet,exte nded release 3-21 00:00: 00 12-31 23:59 :00 No [id number] 1 tablet EVERY 8 HOURS 1 tablet EVERY 8 HOURS (route: oral) Med Classific ation: Analgesic , Anti-infl ammatory or Antipyret ic cyclobenzap rine 10 mg tablet 08-05 00:00: 00 09-01 23:59 :00 No [id number] 1 tablet BEDTIME 1 tablet BEDTIME (route: oral) Med Classific ation: Locomotor System meloxicam 15 mg tablet 08-05 00:00: 00 09-01 23:59 :00 No [id number] 1 tablet DAILY 1 tablet DAILY (route: oral) Med Classific ation: Analgesic , Anti-infl ammatory or Antipyret ic cyclobenzap rine 10 mg tablet 09-01 00:00: 00 12-31 23:59 :00 No [id number] 1 tablet BEDTIME 1 tablet BEDTIME (route: oral) Med Classific ation: Locomotor System meloxicam 15 mg tablet 09-01 00:00: 00 12-31 23:59 :00 No [id number] 1 tablet EVERY AM 1 tablet EVERY AM (route: oral) Med Classific ation: Analgesic , Anti-infl ammatory or Antipyret ic trazodone 50 mg tablet 09-01 00:00: 00 12-31 23:59 :00 No [id number] Per instruc tions BEDTIME Per instructio ns BEDTIME (route: oral) Med Classific ation: Central Nervous System Agents erythromyci n 5 mg/gram (0.5 %) eye ointment 2024-03 00:00: 00 Yes [id number] Per instruc tions 4 TIMES DAILY Per instructio ns 4 TIMES DAILY (route: ophthalmic (eye)) Med Classific ation: Ophthalmi c Agents albuterol sulfate HFA 90 mcg/actuati on aerosol inhaler 2024-03 00:00: 00 Yes [id number] 2 puff EVERY 6 HOURS 2 puff EVERY 6 HOURS (route: inhalation ) Med Classific ation: Respirato ry Therapy Agents bupropion HCl XL 300 mg 24 hr tablet, extended release 2024-03 00:00: 00 Yes [id number] 1 tablet EVERY AM 1 tablet EVERY AM (route: oral) Med Classific ation: Central Nervous System Agents carbidopa 25 mg-levodopa 100 mg disintegrat ing tablet 2024-03 00:00: 00 Yes [id number] 1.5 tablet NOON 1.5 tablet NOON (route: oral) Med Classific ation: Central Nervous System Agents carbidopa 25 mg-levodopa 100 mg tablet 2024-03 00:00: 00 Yes [id number] 1.5 tablet EVERY AM 1.5 tablet EVERY AM (route: oral) Med Classific ation: Central Nervous System Agents carbidopa 25 mg-levodopa 100 mg tablet 2024-03 00:00: 00 Yes [id number] 1.5 tablet EVERY PM 1.5 tablet EVERY PM (route: oral) Med Classific ation: Central Nervous System Agents carbidopa 25 mg-levodopa 100 mg tablet 2024-03 00:00: 00 Yes [id number] 1.5 tablet BEDTIME 1.5 tablet BEDTIME (route: oral) Med Classific ation: Central Nervous System Agents cyclobenzap rine 10 mg tablet 2024-03 00:00: 00 Yes [id number] 1 tablet BEDTIME 1 tablet BEDTIME (route: oral) Med Classific ation: Locomotor System famotidine 40 mg tablet 2024-03 00:00: 00 Yes [id number] 1 tablet EVERY AM 1 tablet EVERY AM (route: oral) Med Classific ation: Gastroint estinal Therapy Agents meloxicam 15 mg tablet 2024-03 00:00: 00 Yes [id number] 1 tablet EVERY AM 1 tablet EVERY AM (route: oral) Med Classific ation: Analgesic , Anti-infl ammatory or Antipyret ic paroxetine 40 mg tablet 2024-03 00:00: 00 Yes [id number] 1 tablet EVERY AM 1 tablet EVERY AM (route: oral) Med Classific ation: Central Nervous System Agents trazodone 50 mg tablet 2024-03 00:00: 00 Yes [id number] 1 tablet BEDTIME 1 tablet BEDTIME (route: oral) Med Classific ation: Central Nervous System Agents Tylenol Arthritis Pain 650 mg tablet,exte nded release 2024-03 0-23 00:00: 00 Yes [id number] 1 tablet EVERY 8 HOURS 1 tablet EVERY 8 HOURS (route: oral) Med Classific ation: Analgesic , Anti-infl ammatory or Antipyret ic Farxiga 5 mg tablet 2024-03 1-03 00:00: 00 Yes [id number] 1 tablet EVERY AM 1 tablet EVERY [...] AWARENESS FOR SAFETY AND WILL NOTIFY CLINICAL VALET CASHIER AND PHYSICIAN/PROVIDER WITH ANY CHANGE IN CONDITION. [code = SKILLED NURSE WILL MAINTAIN SITUATIONAL AWARENESS FOR SAFETY AND WILL NOTIFY CLINICAL VALET CASHIER AND PHYSICIAN/PROVIDER WITH ANY CHANGE IN CONDITION.] [...] CLEAN AND NEATLY DRESSED IN KITCHEN WITH PLANT CUSTODIAN PRESENT D/T MOUSE PROBLEM. HER HOME IS [...] WITH HER MED PP PER HER MED ORGAN TUNER AND DENIES ANY ADVERSE EFFECTS.</paragraph> Encounters Start Date/Time End Date/Time Encounter Type Admission Type Attending Clinicians Care Facility Care Department Encounter ID Discharge Date Discharge Status Discharge Condition Discharge Reason Percent Goals Met 2025-01-19 00:00:00 2025-03-19 00:00:00 Outpatient RECERTIFIC ATSNEHAL VELA [facility] [id number] 76.00
--- OUTSIDE RECORDS SUMMARY | 2025-03-18 19:00 | XMS_ITS | Clinical Summary ---
Author Organization Unknown Care Team Providers Care [employer] French Teacher Name Role Phone YAIMA RASMUSSEN, KAVITA BEST Unavailable Unamirella SPEARS RN, SNEHAL Unavailable Unavailable Payers Payer Name Policy Type Policy Number Effective Date Expira tion Date [employer] MEDICARE ADVANTAGE FFS [id number] MEDICARE - [place]GM [id number] Problems Condition Name Condition Details Condition Category [...] 06-25 00:00: 00 12-31 23:59 :00 No [id number] 2 puff DIRECTED 2 puff DIRECTED (route: inhalation ) Med Classific ation: Respirato ry Therapy Agents bupropion HCl XL 300 mg 24 hr tablet, extended release 06-25 00:00: 00 12-31 23:59 :00 No [id number] 1 tablet DAILY 1 tablet DAILY (route: oral) Med Classific ation: Central Nervous System Agents carbidopa 25 mg-levodopa 100 mg tablet 417 00:00: 00 12-31 23:59 :00 No [id number] 1.5 tablet 4 TIMES DAILY 1.5 tablet 4 TIMES DAILY (route: oral) Med Classific ation: Central Nervous System Agents famotidine 40 mg tablet 417 00:00: 00 09-01 23:59 :00 No [id number] 1 tablet DAILY 1 tablet DAILY (route: oral) Med Classific ation: Gastroint estinal Therapy Agents paroxetine 40 mg tablet 17 00:00: 00 12-31 23:59 :00 No [id number] 1 tablet DAILY 1 tablet DAILY (route: oral) Med Classific ation: Central Nervous System Agents trazodone 50 mg tablet 06-25 00:00: 00 09-01 23:59 :00 No [id number] Per instruc tions BEDTIME Per instructio ns BEDTIME (route: oral) Med Classific ation: Central Nervous System Agents gabapentin 100 mg capsule -24 00:00: 00 09-01 23:59 :00 No [id number] pain Per instruc tions BEDTIME Per instructio ns BEDTIME (route: oral) Med Classific ation: Central Nervous System Agents omeprazole 40 mg capsule,del ayed release -24 00:00: 00 05-20 23:59 :00 No [id number] 1 capsule DAILY 1 capsule DAILY (route: oral) Med Classific ation: Gastroint estinal Therapy Agents gabapentin 100 mg capsule 2023-03 0- 00:00: 00 09-01 23:59 :00 No [id number] Per instruc tions 2 TIMES DAILY Per instructio ns 2 TIMES DAILY (route: oral) Med Classific ation: Central Nervous System Agents famotidine 40 mg tablet 3-16 00:00: 00 12-31 23:59 :00 No [id number] 1 tablet EVERY AM 1 tablet EVERY AM (route: oral) Med Classific ation: Gastroint estinal Therapy Agents Tylenol Arthritis Pain 650 mg tablet,exte nded release 3-21 00:00: 00 12-31 23:59 :00 No [id number] 1 tablet EVERY 8 HOURS 1 tablet EVERY 8 HOURS (route: oral) Med Classific ation: Analgesic , Anti-infl ammatory or Antipyret ic cyclobenzap rine 10 mg tablet 08-05 00:00: 00 09-01 23:59 :00 No [id number] 1 tablet BEDTIME 1 tablet BEDTIME (route: oral) Med Classific ation: Locomotor System meloxicam 15 mg tablet 08-05 00:00: 00 09-01 23:59 :00 No [id number] 1 tablet DAILY 1 tablet DAILY (route: oral) Med Classific ation: Analgesic , Anti-infl ammatory or Antipyret ic cyclobenzap rine 10 mg tablet 09-01 00:00: 00 12-31 23:59 :00 No [id number] 1 tablet BEDTIME 1 tablet BEDTIME (route: oral) Med Classific ation: Locomotor System meloxicam 15 mg tablet 09-01 00:00: 00 12-31 23:59 :00 No [id number] 1 tablet EVERY AM 1 tablet EVERY AM (route: oral) Med Classific ation: Analgesic , Anti-infl ammatory or Antipyret ic trazodone 50 mg tablet 09-01 00:00: 00 12-31 23:59 :00 No [id number] Per instruc tions BEDTIME Per instructio ns BEDTIME (route: oral) Med Classific ation: Central Nervous System Agents erythromyci n 5 mg/gram (0.5 %) eye ointment 2024-03 00:00: 00 Yes [id number] Per instruc tions 4 TIMES DAILY Per instructio ns 4 TIMES DAILY (route: ophthalmic (eye)) Med Classific ation: Ophthalmi c Agents albuterol sulfate HFA 90 mcg/actuati on aerosol inhaler 2024-03 00:00: 00 Yes [id number] 2 puff EVERY 6 HOURS 2 puff EVERY 6 HOURS (route: inhalation ) Med Classific ation: Respirato ry Therapy Agents bupropion HCl XL 300 mg 24 hr tablet, extended release 2024-03 00:00: 00 Yes [id number] 1 tablet EVERY AM 1 tablet EVERY AM (route: oral) Med Classific ation: Central Nervous System Agents carbidopa 25 mg-levodopa 100 mg disintegrat ing tablet 2024-03 00:00: 00 Yes [id number] 1.5 tablet NOON 1.5 tablet NOON (route: oral) Med Classific ation: Central Nervous System Agents carbidopa 25 mg-levodopa 100 mg tablet 2024-03 00:00: 00 Yes [id number] 1.5 tablet EVERY AM 1.5 tablet EVERY AM (route: oral) Med Classific ation: Central Nervous System Agents carbidopa 25 mg-levodopa 100 mg tablet 2024-03 00:00: 00 Yes [id number] 1.5 tablet EVERY PM 1.5 tablet EVERY PM (route: oral) Med Classific ation: Central Nervous System Agents carbidopa 25 mg-levodopa 100 mg tablet 2024-03 00:00: 00 Yes [id number] 1.5 tablet BEDTIME 1.5 tablet BEDTIME (route: oral) Med Classific ation: Central Nervous System Agents cyclobenzap rine 10 mg tablet 2024-03 00:00: 00 Yes [id number] 1 tablet BEDTIME 1 tablet BEDTIME (route: oral) Med Classific ation: Locomotor System famotidine 40 mg tablet 2024-03 00:00: 00 Yes [id number] 1 tablet EVERY AM 1 tablet EVERY AM (route: oral) Med Classific ation: Gastroint estinal Therapy Agents meloxicam 15 mg tablet 2024-03 00:00: 00 Yes [id number] 1 tablet EVERY AM 1 tablet EVERY AM (route: oral) Med Classific ation: Analgesic , Anti-infl ammatory or Antipyret ic paroxetine 40 mg tablet 2024-03 00:00: 00 Yes [id number] 1 tablet EVERY AM 1 tablet EVERY AM (route: oral) Med Classific ation: Central Nervous System Agents trazodone 50 mg tablet 2024-03 00:00: 00 Yes [id number] 1 tablet BEDTIME 1 tablet BEDTIME (route: oral) Med Classific ation: Central Nervous System Agents Tylenol Arthritis Pain 650 mg tablet,exte nded release 2024-03 0-23 00:00: 00 Yes [id number] 1 tablet EVERY 8 HOURS 1 tablet EVERY 8 HOURS (route: oral) Med Classific ation: Analgesic , Anti-infl ammatory or Antipyret ic Farxiga 5 mg tablet 2024-03 1-03 00:00: 00 Yes [id number] 1 tablet EVERY AM 1 tablet EVERY [...] AWARENESS FOR SAFETY AND WILL NOTIFY CLINICAL GASKET NOTCHER AND PHYSICIAN/PROVIDER WITH ANY CHANGE IN CONDITION. [code = SKILLED NURSE WILL MAINTAIN SITUATIONAL AWARENESS FOR SAFETY AND WILL NOTIFY CLINICAL GASKET NOTCHER AND PHYSICIAN/PROVIDER WITH ANY CHANGE IN CONDITION.] [...] CLEAN AND NEATLY DRESSED IN KITCHEN WITH TRACTION POWER ENGINEER PRESENT D/T MOUSE PROBLEM. 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
--- OUTSIDE RECORDS SUMMARY | 2025-03-18 19:00 | XMS_ITS | Clinical Summary ---
Author Organization Unknown Care Team Providers Care Environmental Protection Officer Name Role Phone YAIMA RASMUSSEN, KAVITA BEST Unavailable Unamirella SPEARS RN, SNEHAL Unavailable Unavailable Payers Payer Name Policy Type Policy Number Effective Date Expira tion Date [employer] MEDICARE ADVANTAGE FFS [id number] MEDICARE - [place] - PDGM [id number] Problems Condition Name Condition Details Condition Category [...] 06-25 00:00: 00 12-31 23:59 :00 No [id number] 2 puff DIRECTED 2 puff DIRECTED (route: inhalation ) Med Classific ation: Respirato ry Therapy Agents bupropion HCl XL 300 mg 24 hr tablet, extended release 06-25 00:00: 00 12-31 23:59 :00 No [id number] 1 tablet DAILY 1 tablet DAILY (route: oral) Med Classific ation: Central Nervous System Agents carbidopa 25 mg-levodopa 100 mg tablet 417 00:00: 00 12-31 23:59 :00 No [id number] 1.5 tablet 4 TIMES DAILY 1.5 tablet 4 TIMES DAILY (route: oral) Med Classific ation: Central Nervous System Agents famotidine 40 mg tablet 417 00:00: 00 09-01 23:59 :00 No [id number] 1 tablet DAILY 1 tablet DAILY (route: oral) Med Classific ation: Gastroint estinal Therapy Agents paroxetine 40 mg tablet 17 00:00: 00 12-31 23:59 :00 No [id number] 1 tablet DAILY 1 tablet DAILY (route: oral) Med Classific ation: Central Nervous System Agents trazodone 50 mg tablet 06-25 00:00: 00 09-01 23:59 :00 No [id number] Per instruc tions BEDTIME Per instructio ns BEDTIME (route: oral) Med Classific ation: Central Nervous System Agents gabapentin 100 mg capsule -24 00:00: 00 09-01 23:59 :00 No [id number] pain Per instruc tions BEDTIME Per instructio ns BEDTIME (route: oral) Med Classific ation: Central Nervous System Agents omeprazole 40 mg capsule,del ayed release -24 00:00: 00 05-20 23:59 :00 No [id number] 1 capsule DAILY 1 capsule DAILY (route: oral) Med Classific ation: Gastroint estinal Therapy Agents gabapentin 100 mg capsule 2023-03 0- 00:00: 00 09-01 23:59 :00 No [id number] Per instruc tions 2 TIMES DAILY Per instructio ns 2 TIMES DAILY (route: oral) Med Classific ation: Central Nervous System Agents famotidine 40 mg tablet 3-16 00:00: 00 12-31 23:59 :00 No [id number] 1 tablet EVERY AM 1 tablet EVERY AM (route: oral) Med Classific ation: Gastroint estinal Therapy Agents Tylenol Arthritis Pain 650 mg tablet,exte nded release 3-21 00:00: 00 12-31 23:59 :00 No [id number] 1 tablet EVERY 8 HOURS 1 tablet EVERY 8 HOURS (route: oral) Med Classific ation: Analgesic , Anti-infl ammatory or Antipyret ic cyclobenzap rine 10 mg tablet 08-05 00:00: 00 09-01 23:59 :00 No [id number] 1 tablet BEDTIME 1 tablet BEDTIME (route: oral) Med Classific ation: Locomotor System meloxicam 15 mg tablet 08-05 00:00: 00 09-01 23:59 :00 No [id number] 1 tablet DAILY 1 tablet DAILY (route: oral) Med Classific ation: Analgesic , Anti-infl ammatory or Antipyret ic cyclobenzap rine 10 mg tablet 09-01 00:00: 00 12-31 23:59 :00 No [id number] 1 tablet BEDTIME 1 tablet BEDTIME (route: oral) Med Classific ation: Locomotor System meloxicam 15 mg tablet 09-01 00:00: 00 12-31 23:59 :00 No [id number] 1 tablet EVERY AM 1 tablet EVERY AM (route: oral) Med Classific ation: Analgesic , Anti-infl ammatory or Antipyret ic trazodone 50 mg tablet 09-01 00:00: 00 12-31 23:59 :00 No [id number] Per instruc tions BEDTIME Per instructio ns BEDTIME (route: oral) Med Classific ation: Central Nervous System Agents erythromyci n 5 mg/gram (0.5 %) eye ointment 2024-03 00:00: 00 Yes [id number] Per instruc tions 4 TIMES DAILY Per instructio ns 4 TIMES DAILY (route: ophthalmic (eye)) Med Classific ation: Ophthalmi c Agents albuterol sulfate HFA 90 mcg/actuati on aerosol inhaler 2024-03 00:00: 00 Yes [id number] 2 puff EVERY 6 HOURS 2 puff EVERY 6 HOURS (route: inhalation ) Med Classific ation: Respirato ry Therapy Agents bupropion HCl XL 300 mg 24 hr tablet, extended release 2024-03 00:00: 00 Yes [id number] 1 tablet EVERY AM 1 tablet EVERY AM (route: oral) Med Classific ation: Central Nervous System Agents carbidopa 25 mg-levodopa 100 mg disintegrat ing tablet 2024-03 00:00: 00 Yes [id number] 1.5 tablet NOON 1.5 tablet NOON (route: oral) Med Classific ation: Central Nervous System Agents carbidopa 25 mg-levodopa 100 mg tablet 2024-03 00:00: 00 Yes [id number] 1.5 tablet EVERY AM 1.5 tablet EVERY AM (route: oral) Med Classific ation: Central Nervous System Agents carbidopa 25 mg-levodopa 100 mg tablet 2024-03 00:00: 00 Yes [id number] 1.5 tablet EVERY PM 1.5 tablet EVERY PM (route: oral) Med Classific ation: Central Nervous System Agents carbidopa 25 mg-levodopa 100 mg tablet 2024-03 00:00: 00 Yes [id number] 1.5 tablet BEDTIME 1.5 tablet BEDTIME (route: oral) Med Classific ation: Central Nervous System Agents cyclobenzap rine 10 mg tablet 2024-03 00:00: 00 Yes [id number] 1 tablet BEDTIME 1 tablet BEDTIME (route: oral) Med Classific ation: Locomotor System famotidine 40 mg tablet 2024-03 00:00: 00 Yes [id number] 1 tablet EVERY AM 1 tablet EVERY AM (route: oral) Med Classific ation: Gastroint estinal Therapy Agents meloxicam 15 mg tablet 2024-03 00:00: 00 Yes [id number] 1 tablet EVERY AM 1 tablet EVERY AM (route: oral) Med Classific ation: Analgesic , Anti-infl ammatory or Antipyret ic paroxetine 40 mg tablet 2024-03 00:00: 00 Yes [id number] 1 tablet EVERY AM 1 tablet EVERY AM (route: oral) Med Classific ation: Central Nervous System Agents trazodone 50 mg tablet 2024-03 00:00: 00 Yes [id number] 1 tablet BEDTIME 1 tablet BEDTIME (route: oral) Med Classific ation: Central Nervous System Agents Tylenol Arthritis Pain 650 mg tablet,exte nded release 2024-03 0-23 00:00: 00 Yes [id number] 1 tablet EVERY 8 HOURS 1 tablet EVERY 8 HOURS (route: oral) Med Classific ation: Analgesic , Anti-infl ammatory or Antipyret ic Farxiga 5 mg tablet 2024-03 1-03 00:00: 00 Yes [id number] 1 tablet EVERY AM 1 tablet EVERY [...] FOR SAFETY AND WILL NOTIFY CLINICAL SUPERVISOR BRAKE REPAIR AND PHYSICIAN/PROVIDER WITH ANY CHANGE IN CONDITION. [code = SKILLED NURSE WILL MAINTAIN SITUATIONAL AWARENESS FOR SAFETY AND WILL NOTIFY CLINICAL SUPERVISOR BRAKE REPAIR AND PHYSICIAN/PROVIDER WITH ANY CHANGE IN CONDITION.] [...] CLEAN AND NEATLY DRESSED IN KITCHEN WITH WATER CONTROL STATION ENGINEER PRESENT D/T MOUSE PROBLEM. HER HOME [...] WITH HER MED PP PER HER MED BUSINESS ARCHITECT AND DENIES ANY ADVERSE EFFECTS.</paragraph> Encounters Start Date/Time End Date/Time Encounter Type Admission Type Attending Clinicians Care Facility Care Department Encounter ID Discharge Date Discharge Status Discharge Condition Discharge Reason Percent Goals Met 2025-01-19 00:00:00 2025-03-19 00:00:00 Outpatient RECERTIFIC ATSNEHAL VELA [facility] [id number] 76.00
--- OUTSIDE RECORDS SUMMARY | 2025-03-18 19:00 | XMS_ITS | Clinical Summary ---
Author Organization Unknown Care Team Providers Care Dental Service Technician Name Role Phone YAIMA RASMUSSEN, KAVITA BEST Unavailable Unamirella SPEARS RN, SNEHAL Unavailable Unavailable Payers Payer Name Policy Type Policy Number Effective Date Expira tion Date [employer] MEDICARE ADVANTAGE FFS [id number] MEDICARE - [place] PDGM [id number] Problems Condition Name Condition Details Condition Category [...] 06-25 00:00: 00 12-31 23:59 :00 No [id number] 2 puff DIRECTED 2 puff DIRECTED (route: inhalation ) Med Classific ation: Respirato ry Therapy Agents bupropion HCl XL 300 mg 24 hr tablet, extended release 06-25 00:00: 00 12-31 23:59 :00 No [id number] 1 tablet DAILY 1 tablet DAILY (route: oral) Med Classific ation: Central Nervous System Agents carbidopa 25 mg-levodopa 100 mg tablet 417 00:00: 00 12-31 23:59 :00 No [id number] 1.5 tablet 4 TIMES DAILY 1.5 tablet 4 TIMES DAILY (route: oral) Med Classific ation: Central Nervous System Agents famotidine 40 mg tablet 417 00:00: 00 09-01 23:59 :00 No [id number] 1 tablet DAILY 1 tablet DAILY (route: oral) Med Classific ation: Gastroint estinal Therapy Agents paroxetine 40 mg tablet 17 00:00: 00 12-31 23:59 :00 No [id number] 1 tablet DAILY 1 tablet DAILY (route: oral) Med Classific ation: Central Nervous System Agents trazodone 50 mg tablet 06-25 00:00: 00 09-01 23:59 :00 No [id number] Per instruc tions BEDTIME Per instructio ns BEDTIME (route: oral) Med Classific ation: Central Nervous System Agents gabapentin 100 mg capsule -24 00:00: 00 09-01 23:59 :00 No [id number] pain Per instruc tions BEDTIME Per instructio ns BEDTIME (route: oral) Med Classific ation: Central Nervous System Agents omeprazole 40 mg capsule,del ayed release -24 00:00: 00 05-20 23:59 :00 No [id number] 1 capsule DAILY 1 capsule DAILY (route: oral) Med Classific ation: Gastroint estinal Therapy Agents gabapentin 100 mg capsule 2023-03 0- 00:00: 00 09-01 23:59 :00 No [id number] Per instruc tions 2 TIMES DAILY Per instructio ns 2 TIMES DAILY (route: oral) Med Classific ation: Central Nervous System Agents famotidine 40 mg tablet 3-16 00:00: 00 12-31 23:59 :00 No [id number] 1 tablet EVERY AM 1 tablet EVERY AM (route: oral) Med Classific ation: Gastroint estinal Therapy Agents Tylenol Arthritis Pain 650 mg tablet,exte nded release 3-21 00:00: 00 12-31 23:59 :00 No [id number] 1 tablet EVERY 8 HOURS 1 tablet EVERY 8 HOURS (route: oral) Med Classific ation: Analgesic , Anti-infl ammatory or Antipyret ic cyclobenzap rine 10 mg tablet 08-05 00:00: 00 09-01 23:59 :00 No [id number] 1 tablet BEDTIME 1 tablet BEDTIME (route: oral) Med Classific ation: Locomotor System meloxicam 15 mg tablet 08-05 00:00: 00 09-01 23:59 :00 No [id number] 1 tablet DAILY 1 tablet DAILY (route: oral) Med Classific ation: Analgesic , Anti-infl ammatory or Antipyret ic cyclobenzap rine 10 mg tablet 09-01 00:00: 00 12-31 23:59 :00 No [id number] 1 tablet BEDTIME 1 tablet BEDTIME (route: oral) Med Classific ation: Locomotor System meloxicam 15 mg tablet 09-01 00:00: 00 12-31 23:59 :00 No [id number] 1 tablet EVERY AM 1 tablet EVERY AM (route: oral) Med Classific ation: Analgesic , Anti-infl ammatory or Antipyret ic trazodone 50 mg tablet 09-01 00:00: 00 12-31 23:59 :00 No [id number] Per instruc tions BEDTIME Per instructio ns BEDTIME (route: oral) Med Classific ation: Central Nervous System Agents erythromyci n 5 mg/gram (0.5 %) eye ointment 2024-03 00:00: 00 Yes [id number] Per instruc tions 4 TIMES DAILY Per instructio ns 4 TIMES DAILY (route: ophthalmic (eye)) Med Classific ation: Ophthalmi c Agents albuterol sulfate HFA 90 mcg/actuati on aerosol inhaler 2024-03 00:00: 00 Yes [id number] 2 puff EVERY 6 HOURS 2 puff EVERY 6 HOURS (route: inhalation ) Med Classific ation: Respirato ry Therapy Agents bupropion HCl XL 300 mg 24 hr tablet, extended release 2024-03 00:00: 00 Yes [id number] 1 tablet EVERY AM 1 tablet EVERY AM (route: oral) Med Classific ation: Central Nervous System Agents carbidopa 25 mg-levodopa 100 mg disintegrat ing tablet 2024-03 00:00: 00 Yes [id number] 1.5 tablet NOON 1.5 tablet NOON (route: oral) Med Classific ation: Central Nervous System Agents carbidopa 25 mg-levodopa 100 mg tablet 2024-03 00:00: 00 Yes [id number] 1.5 tablet EVERY AM 1.5 tablet EVERY AM (route: oral) Med Classific ation: Central Nervous System Agents carbidopa 25 mg-levodopa 100 mg tablet 2024-03 00:00: 00 Yes [id number] 1.5 tablet EVERY PM 1.5 tablet EVERY PM (route: oral) Med Classific ation: Central Nervous System Agents carbidopa 25 mg-levodopa 100 mg tablet 2024-03 00:00: 00 Yes [id number] 1.5 tablet BEDTIME 1.5 tablet BEDTIME (route: oral) Med Classific ation: Central Nervous System Agents cyclobenzap rine 10 mg tablet 2024-03 00:00: 00 Yes [id number] 1 tablet BEDTIME 1 tablet BEDTIME (route: oral) Med Classific ation: Locomotor System famotidine 40 mg tablet 2024-03 00:00: 00 Yes [id number] 1 tablet EVERY AM 1 tablet EVERY AM (route: oral) Med Classific ation: Gastroint estinal Therapy Agents meloxicam 15 mg tablet 2024-03 00:00: 00 Yes [id number] 1 tablet EVERY AM 1 tablet EVERY AM (route: oral) Med Classific ation: Analgesic , Anti-infl ammatory or Antipyret ic paroxetine 40 mg tablet 2024-03 00:00: 00 Yes [id number] 1 tablet EVERY AM 1 tablet EVERY AM (route: oral) Med Classific ation: Central Nervous System Agents trazodone 50 mg tablet 2024-03 00:00: 00 Yes [id number] 1 tablet BEDTIME 1 tablet BEDTIME (route: oral) Med Classific ation: Central Nervous System Agents Tylenol Arthritis Pain 650 mg tablet,exte nded release 2024-03 0-23 00:00: 00 Yes [id number] 1 tablet EVERY 8 HOURS 1 tablet EVERY 8 HOURS (route: oral) Med Classific ation: Analgesic , Anti-infl ammatory or Antipyret ic Farxiga 5 mg tablet 2024-03 1-03 00:00: 00 Yes [id number] 1 tablet EVERY AM 1 tablet EVERY [...] AWARENESS FOR SAFETY AND WILL NOTIFY CLINICAL ALL TERRAIN VEHICLE TECHNICIAN AND PHYSICIAN/PROVIDER WITH ANY CHANGE IN CONDITION. [code = SKILLED NURSE WILL MAINTAIN SITUATIONAL AWARENESS FOR SAFETY AND WILL NOTIFY CLINICAL ALL TERRAIN VEHICLE TECHNICIAN AND PHYSICIAN/PROVIDER WITH ANY CHANGE IN [...] CLEAN AND NEATLY DRESSED IN KITCHEN WITH SELF PAY COLLECTOR PRESENT D/T MOUSE PROBLEM. HER HOME IS [...] WITH HER MED PP PER HER MED FIELD HOCKEY COACH AND DENIES ANY ADVERSE EFFECTS.</paragraph> Encounters Start Date/Time End Date/Time Encounter Type Admission Type Attending Clinicians Care Facility Care Department Encounter ID Discharge Date Discharge Status Discharge Condition Discharge Reason Percent Goals Met 2025-01-19 00:00:00 2025-03-19 00:00:00 Outpatient RECERTIFIC ATSNEHAL VELA [facility] [id number] 76.00
--- OUTSIDE RECORDS SUMMARY | 2025-03-18 19:00 | XMS_ITS | Clinical Summary ---
Author Organization Unknown Care Team Providers Care Aoc Plans Intelligence Officer Name Role Phone YAIMA RASMUSSEN, KAVITA BEST Unavailable Unamirella SPEARS RN, SNEHAL Unavailable Unavailable Payers Payer Name Policy Type Policy Number Effective Date Expira tion Date [employer] MEDICARE ADVANTAGE FFS [id number] MEDICARE - [place] PDGM [id number] Problems Condition Name Condition Details Condition Category [...] 06-25 00:00: 00 12-31 23:59 :00 No [id number] 2 puff DIRECTED 2 puff DIRECTED (route: inhalation ) Med Classific ation: Respirato ry Therapy Agents bupropion HCl XL 300 mg 24 hr tablet, extended release 06-25 00:00: 00 12-31 23:59 :00 No [id number] 1 tablet DAILY 1 tablet DAILY (route: oral) Med Classific ation: Central Nervous System Agents carbidopa 25 mg-levodopa 100 mg tablet 417 00:00: 00 12-31 23:59 :00 No [id number] 1.5 tablet 4 TIMES DAILY 1.5 tablet 4 TIMES DAILY (route: oral) Med Classific ation: Central Nervous System Agents famotidine 40 mg tablet 417 00:00: 00 09-01 23:59 :00 No [id number] 1 tablet DAILY 1 tablet DAILY (route: oral) Med Classific ation: Gastroint estinal Therapy Agents paroxetine 40 mg tablet 17 00:00: 00 12-31 23:59 :00 No [id number] 1 tablet DAILY 1 tablet DAILY (route: oral) Med Classific ation: Central Nervous System Agents trazodone 50 mg tablet 06-25 00:00: 00 09-01 23:59 :00 No [id number] Per instruc tions BEDTIME Per instructio ns BEDTIME (route: oral) Med Classific ation: Central Nervous System Agents gabapentin 100 mg capsule -24 00:00: 00 09-01 23:59 :00 No [id number] pain Per instruc tions BEDTIME Per instructio ns BEDTIME (route: oral) Med Classific ation: Central Nervous System Agents omeprazole 40 mg capsule,del ayed release -24 00:00: 00 05-20 23:59 :00 No [id number] 1 capsule DAILY 1 capsule DAILY (route: oral) Med Classific ation: Gastroint estinal Therapy Agents gabapentin 100 mg capsule 2023-03 0- 00:00: 00 09-01 23:59 :00 No [id number] Per instruc tions 2 TIMES DAILY Per instructio ns 2 TIMES DAILY (route: oral) Med Classific ation: Central Nervous System Agents famotidine 40 mg tablet 3-16 00:00: 00 12-31 23:59 :00 No [id number] 1 tablet EVERY AM 1 tablet EVERY AM (route: oral) Med Classific ation: Gastroint estinal Therapy Agents Tylenol Arthritis Pain 650 mg tablet,exte nded release 3-21 00:00: 00 12-31 23:59 :00 No [id number] 1 tablet EVERY 8 HOURS 1 tablet EVERY 8 HOURS (route: oral) Med Classific ation: Analgesic , Anti-infl ammatory or Antipyret ic cyclobenzap rine 10 mg tablet 08-05 00:00: 00 09-01 23:59 :00 No [id number] 1 tablet BEDTIME 1 tablet BEDTIME (route: oral) Med Classific ation: Locomotor System meloxicam 15 mg tablet 08-05 00:00: 00 09-01 23:59 :00 No [id number] 1 tablet DAILY 1 tablet DAILY (route: oral) Med Classific ation: Analgesic , Anti-infl ammatory or Antipyret ic cyclobenzap rine 10 mg tablet 09-01 00:00: 00 12-31 23:59 :00 No [id number] 1 tablet BEDTIME 1 tablet BEDTIME (route: oral) Med Classific ation: Locomotor System meloxicam 15 mg tablet 09-01 00:00: 00 12-31 23:59 :00 No [id number] 1 tablet EVERY AM 1 tablet EVERY AM (route: oral) Med Classific ation: Analgesic , Anti-infl ammatory or Antipyret ic trazodone 50 mg tablet 09-01 00:00: 00 12-31 23:59 :00 No [id number] Per instruc tions BEDTIME Per instructio ns BEDTIME (route: oral) Med Classific ation: Central Nervous System Agents erythromyci n 5 mg/gram (0.5 %) eye ointment 2024-03 00:00: 00 Yes [id number] Per instruc tions 4 TIMES DAILY Per instructio ns 4 TIMES DAILY (route: ophthalmic (eye)) Med Classific ation: Ophthalmi c Agents albuterol sulfate HFA 90 mcg/actuati on aerosol inhaler 2024-03 00:00: 00 Yes [id number] 2 puff EVERY 6 HOURS 2 puff EVERY 6 HOURS (route: inhalation ) Med Classific ation: Respirato ry Therapy Agents bupropion HCl XL 300 mg 24 hr tablet, extended release 2024-03 00:00: 00 Yes [id number] 1 tablet EVERY AM 1 tablet EVERY AM (route: oral) Med Classific ation: Central Nervous System Agents carbidopa 25 mg-levodopa 100 mg disintegrat ing tablet 2024-03 00:00: 00 Yes [id number] 1.5 tablet NOON 1.5 tablet NOON (route: oral) Med Classific ation: Central Nervous System Agents carbidopa 25 mg-levodopa 100 mg tablet 2024-03 00:00: 00 Yes [id number] 1.5 tablet EVERY AM 1.5 tablet EVERY AM (route: oral) Med Classific ation: Central Nervous System Agents carbidopa 25 mg-levodopa 100 mg tablet 2024-03 00:00: 00 Yes [id number] 1.5 tablet EVERY PM 1.5 tablet EVERY PM (route: oral) Med Classific ation: Central Nervous System Agents carbidopa 25 mg-levodopa 100 mg tablet 2024-03 00:00: 00 Yes [id number] 1.5 tablet BEDTIME 1.5 tablet BEDTIME (route: oral) Med Classific ation: Central Nervous System Agents cyclobenzap rine 10 mg tablet 2024-03 00:00: 00 Yes [id number] 1 tablet BEDTIME 1 tablet BEDTIME (route: oral) Med Classific ation: Locomotor System famotidine 40 mg tablet 2024-03 00:00: 00 Yes [id number] 1 tablet EVERY AM 1 tablet EVERY AM (route: oral) Med Classific ation: Gastroint estinal Therapy Agents meloxicam 15 mg tablet 2024-03 00:00: 00 Yes [id number] 1 tablet EVERY AM 1 tablet EVERY AM (route: oral) Med Classific ation: Analgesic , Anti-infl ammatory or Antipyret ic paroxetine 40 mg tablet 2024-03 00:00: 00 Yes [id number] 1 tablet EVERY AM 1 tablet EVERY AM (route: oral) Med Classific ation: Central Nervous System Agents trazodone 50 mg tablet 2024-03 00:00: 00 Yes [id number] 1 tablet BEDTIME 1 tablet BEDTIME (route: oral) Med Classific ation: Central Nervous System Agents Tylenol Arthritis Pain 650 mg tablet,exte nded release 2024-03 0-23 00:00: 00 Yes [id number] 1 tablet EVERY 8 HOURS 1 tablet EVERY 8 HOURS (route: oral) Med Classific ation: Analgesic , Anti-infl ammatory or Antipyret ic Farxiga 5 mg tablet 2024-03 1-03 00:00: 00 Yes [id number] 1 tablet EVERY AM 1 tablet EVERY [...] AWARENESS FOR SAFETY AND WILL NOTIFY CLINICAL MANUFACTURING ENGINEERING PROFESSOR AND PHYSICIAN/PROVIDER WITH ANY CHANGE IN CONDITION. [code = SKILLED NURSE WILL MAINTAIN SITUATIONAL AWARENESS FOR SAFETY AND WILL NOTIFY CLINICAL MANUFACTURING ENGINEERING PROFESSOR AND PHYSICIAN/PROVIDER WITH ANY CHANGE IN CONDITION.] [...] CLEAN AND NEATLY DRESSED IN KITCHEN WITH ECONOMETRICIAN PRESENT D/T MOUSE PROBLEM. HER HOME IS [...] WITH HER MED PP PER HER MED PHYSICS TECHNICAL OFFICER AND DENIES ANY ADVERSE EFFECTS.</paragraph> Encounters Start Date/Time End Date/Time Encounter Type Admission Type Attending Clinicians Care Facility Care Department Encounter ID Discharge Date Discharge Status Discharge Condition Discharge Reason Percent Goals Met 2025-01-19 00:00:00 2025-03-19 00:00:00 Outpatient RECERTIFIC ATSNEHAL VELA [facility] [id number] 76.00
--- OUTSIDE RECORDS SUMMARY | 2025-03-18 19:00 | XMS_ITS | Clinical Summary ---
Author Organization Unknown Care Team Providers Care Director Of Math Name Role Phone YAIMA RASMUSSEN, KAVITA BEST Unavailable Unamirella SPEARS RN, SNEHAL Unavailable Unavailable Payers Payer Name Policy Type Policy Number Effective Date Expira tion Date [employer] MEDICARE ADVANTAGE FFS [id number] MEDICARE - [place] - PDGM [id number] Problems Condition Name Condition Details Condition Category [...] 06-25 00:00: 00 12-31 23:59 :00 No [id number] 2 puff DIRECTED 2 puff DIRECTED (route: inhalation ) Med Classific ation: Respirato ry Therapy Agents bupropion HCl XL 300 mg 24 hr tablet, extended release 06-25 00:00: 00 12-31 23:59 :00 No [id number] 1 tablet DAILY 1 tablet DAILY (route: oral) Med Classific ation: Central Nervous System Agents carbidopa 25 mg-levodopa 100 mg tablet 417 00:00: 00 12-31 23:59 :00 No [id number] 1.5 tablet 4 TIMES DAILY 1.5 tablet 4 TIMES DAILY (route: oral) Med Classific ation: Central Nervous System Agents famotidine 40 mg tablet 417 00:00: 00 09-01 23:59 :00 No [id number] 1 tablet DAILY 1 tablet DAILY (route: oral) Med Classific ation: Gastroint estinal Therapy Agents paroxetine 40 mg tablet 17 00:00: 00 12-31 23:59 :00 No [id number] 1 tablet DAILY 1 tablet DAILY (route: oral) Med Classific ation: Central Nervous System Agents trazodone 50 mg tablet 06-25 00:00: 00 09-01 23:59 :00 No [id number] Per instruc tions BEDTIME Per instructio ns BEDTIME (route: oral) Med Classific ation: Central Nervous System Agents gabapentin 100 mg capsule -24 00:00: 00 09-01 23:59 :00 No [id number] pain Per instruc tions BEDTIME Per instructio ns BEDTIME (route: oral) Med Classific ation: Central Nervous System Agents omeprazole 40 mg capsule,del ayed release -24 00:00: 00 05-20 23:59 :00 No [id number] 1 capsule DAILY 1 capsule DAILY (route: oral) Med Classific ation: Gastroint estinal Therapy Agents gabapentin 100 mg capsule 2023-03 0- 00:00: 00 09-01 23:59 :00 No [id number] Per instruc tions 2 TIMES DAILY Per instructio ns 2 TIMES DAILY (route: oral) Med Classific ation: Central Nervous System Agents famotidine 40 mg tablet 3-16 00:00: 00 12-31 23:59 :00 No [id number] 1 tablet EVERY AM 1 tablet EVERY AM (route: oral) Med Classific ation: Gastroint estinal Therapy Agents Tylenol Arthritis Pain 650 mg tablet,exte nded release 3-21 00:00: 00 12-31 23:59 :00 No [id number] 1 tablet EVERY 8 HOURS 1 tablet EVERY 8 HOURS (route: oral) Med Classific ation: Analgesic , Anti-infl ammatory or Antipyret ic cyclobenzap rine 10 mg tablet 08-05 00:00: 00 09-01 23:59 :00 No [id number] 1 tablet BEDTIME 1 tablet BEDTIME (route: oral) Med Classific ation: Locomotor System meloxicam 15 mg tablet 08-05 00:00: 00 09-01 23:59 :00 No [id number] 1 tablet DAILY 1 tablet DAILY (route: oral) Med Classific ation: Analgesic , Anti-infl ammatory or Antipyret ic cyclobenzap rine 10 mg tablet 09-01 00:00: 00 12-31 23:59 :00 No [id number] 1 tablet BEDTIME 1 tablet BEDTIME (route: oral) Med Classific ation: Locomotor System meloxicam 15 mg tablet 09-01 00:00: 00 12-31 23:59 :00 No [id number] 1 tablet EVERY AM 1 tablet EVERY AM (route: oral) Med Classific ation: Analgesic , Anti-infl ammatory or Antipyret ic trazodone 50 mg tablet 09-01 00:00: 00 12-31 23:59 :00 No [id number] Per instruc tions BEDTIME Per instructio ns BEDTIME (route: oral) Med Classific ation: Central Nervous System Agents erythromyci n 5 mg/gram (0.5 %) eye ointment 2024-03 00:00: 00 Yes [id number] Per instruc tions 4 TIMES DAILY Per instructio ns 4 TIMES DAILY (route: ophthalmic (eye)) Med Classific ation: Ophthalmi c Agents albuterol sulfate HFA 90 mcg/actuati on aerosol inhaler 2024-03 00:00: 00 Yes [id number] 2 puff EVERY 6 HOURS 2 puff EVERY 6 HOURS (route: inhalation ) Med Classific ation: Respirato ry Therapy Agents bupropion HCl XL 300 mg 24 hr tablet, extended release 2024-03 00:00: 00 Yes [id number] 1 tablet EVERY AM 1 tablet EVERY AM (route: oral) Med Classific ation: Central Nervous System Agents carbidopa 25 mg-levodopa 100 mg disintegrat ing tablet 2024-03 00:00: 00 Yes [id number] 1.5 tablet NOON 1.5 tablet NOON (route: oral) Med Classific ation: Central Nervous System Agents carbidopa 25 mg-levodopa 100 mg tablet 2024-03 00:00: 00 Yes [id number] 1.5 tablet EVERY AM 1.5 tablet EVERY AM (route: oral) Med Classific ation: Central Nervous System Agents carbidopa 25 mg-levodopa 100 mg tablet 2024-03 00:00: 00 Yes [id number] 1.5 tablet EVERY PM 1.5 tablet EVERY PM (route: oral) Med Classific ation: Central Nervous System Agents carbidopa 25 mg-levodopa 100 mg tablet 2024-03 00:00: 00 Yes [id number] 1.5 tablet BEDTIME 1.5 tablet BEDTIME (route: oral) Med Classific ation: Central Nervous System Agents cyclobenzap rine 10 mg tablet 2024-03 00:00: 00 Yes [id number] 1 tablet BEDTIME 1 tablet BEDTIME (route: oral) Med Classific ation: Locomotor System famotidine 40 mg tablet 2024-03 00:00: 00 Yes [id number] 1 tablet EVERY AM 1 tablet EVERY AM (route: oral) Med Classific ation: Gastroint estinal Therapy Agents meloxicam 15 mg tablet 2024-03 00:00: 00 Yes [id number] 1 tablet EVERY AM 1 tablet EVERY AM (route: oral) Med Classific ation: Analgesic , Anti-infl ammatory or Antipyret ic paroxetine 40 mg tablet 2024-03 00:00: 00 Yes [id number] 1 tablet EVERY AM 1 tablet EVERY AM (route: oral) Med Classific ation: Central Nervous System Agents trazodone 50 mg tablet 2024-03 00:00: 00 Yes [id number] 1 tablet BEDTIME 1 tablet BEDTIME (route: oral) Med Classific ation: Central Nervous System Agents Tylenol Arthritis Pain 650 mg tablet,exte nded release 2024-03 0-23 00:00: 00 Yes [id number] 1 tablet EVERY 8 HOURS 1 tablet EVERY 8 HOURS (route: oral) Med Classific ation: Analgesic , Anti-infl ammatory or Antipyret ic Farxiga 5 mg tablet 2024-03 1-03 00:00: 00 Yes [id number] 1 tablet EVERY AM 1 tablet EVERY [...] AWARENESS FOR SAFETY AND WILL NOTIFY CLINICAL FIGURE REFINISHER AND REPAIRER AND PHYSICIAN/PROVIDER WITH ANY CHANGE IN CONDITION. [code = SKILLED NURSE WILL MAINTAIN SITUATIONAL AWARENESS FOR SAFETY AND WILL NOTIFY CLINICAL FIGURE REFINISHER AND REPAIRER AND PHYSICIAN/PROVIDER WITH ANY CHANGE IN CONDITION.] [...] CLEAN AND NEATLY DRESSED IN KITCHEN WITH RAIL CAR PAINTER/SANDBLASTER PRESENT D/T MOUSE PROBLEM. 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
--- OUTSIDE RECORDS SUMMARY | 2025-03-18 19:00 | XMS_ITS | Clinical Summary ---
Author Organization Unknown Care Team Providers Care Civil Engineer Helper Name Role Phone YAIMA RASMUSSEN, KAVITA BEST Unavailable Unamirella SPEARS RN, SNEHAL Unavailable Unavailable Payers Payer Name Policy Type Policy Number Effective Date Expira tion Date [employer] MEDICARE ADVANTAGE FFS [id number] MEDICARE - [place] PDGM [id number] Problems Condition Name Condition Details Condition Category [...] 06-25 00:00: 00 12-31 23:59 :00 No [id number] 2 puff DIRECTED 2 puff DIRECTED (route: inhalation ) Med Classific ation: Respirato ry Therapy Agents bupropion HCl XL 300 mg 24 hr tablet, extended release 06-25 00:00: 00 12-31 23:59 :00 No [id number] 1 tablet DAILY 1 tablet DAILY (route: oral) Med Classific ation: Central Nervous System Agents carbidopa 25 mg-levodopa 100 mg tablet 417 00:00: 00 12-31 23:59 :00 No [id number] 1.5 tablet 4 TIMES DAILY 1.5 tablet 4 TIMES DAILY (route: oral) Med Classific ation: Central Nervous System Agents famotidine 40 mg tablet 417 00:00: 00 09-01 23:59 :00 No [id number] 1 tablet DAILY 1 tablet DAILY (route: oral) Med Classific ation: Gastroint estinal Therapy Agents paroxetine 40 mg tablet 17 00:00: 00 12-31 23:59 :00 No [id number] 1 tablet DAILY 1 tablet DAILY (route: oral) Med Classific ation: Central Nervous System Agents trazodone 50 mg tablet 06-25 00:00: 00 09-01 23:59 :00 No [id number] Per instruc tions BEDTIME Per instructio ns BEDTIME (route: oral) Med Classific ation: Central Nervous System Agents gabapentin 100 mg capsule -24 00:00: 00 09-01 23:59 :00 No [id number] pain Per instruc tions BEDTIME Per instructio ns BEDTIME (route: oral) Med Classific ation: Central Nervous System Agents omeprazole 40 mg capsule,del ayed release -24 00:00: 00 05-20 23:59 :00 No [id number] 1 capsule DAILY 1 capsule DAILY (route: oral) Med Classific ation: Gastroint estinal Therapy Agents gabapentin 100 mg capsule 2023-03 0- 00:00: 00 09-01 23:59 :00 No [id number] Per instruc tions 2 TIMES DAILY Per instructio ns 2 TIMES DAILY (route: oral) Med Classific ation: Central Nervous System Agents famotidine 40 mg tablet 3-16 00:00: 00 12-31 23:59 :00 No [id number] 1 tablet EVERY AM 1 tablet EVERY AM (route: oral) Med Classific ation: Gastroint estinal Therapy Agents Tylenol Arthritis Pain 650 mg tablet,exte nded release 3-21 00:00: 00 12-31 23:59 :00 No [id number] 1 tablet EVERY 8 HOURS 1 tablet EVERY 8 HOURS (route: oral) Med Classific ation: Analgesic , Anti-infl ammatory or Antipyret ic cyclobenzap rine 10 mg tablet 08-05 00:00: 00 09-01 23:59 :00 No [id number] 1 tablet BEDTIME 1 tablet BEDTIME (route: oral) Med Classific ation: Locomotor System meloxicam 15 mg tablet 08-05 00:00: 00 09-01 23:59 :00 No [id number] 1 tablet DAILY 1 tablet DAILY (route: oral) Med Classific ation: Analgesic , Anti-infl ammatory or Antipyret ic cyclobenzap rine 10 mg tablet 09-01 00:00: 00 12-31 23:59 :00 No [id number] 1 tablet BEDTIME 1 tablet BEDTIME (route: oral) Med Classific ation: Locomotor System meloxicam 15 mg tablet 09-01 00:00: 00 12-31 23:59 :00 No [id number] 1 tablet EVERY AM 1 tablet EVERY AM (route: oral) Med Classific ation: Analgesic , Anti-infl ammatory or Antipyret ic trazodone 50 mg tablet 09-01 00:00: 00 12-31 23:59 :00 No [id number] Per instruc tions BEDTIME Per instructio ns BEDTIME (route: oral) Med Classific ation: Central Nervous System Agents erythromyci n 5 mg/gram (0.5 %) eye ointment 2024-03 00:00: 00 Yes [id number] Per instruc tions 4 TIMES DAILY Per instructio ns 4 TIMES DAILY (route: ophthalmic (eye)) Med Classific ation: Ophthalmi c Agents albuterol sulfate HFA 90 mcg/actuati on aerosol inhaler 2024-03 00:00: 00 Yes [id number] 2 puff EVERY 6 HOURS 2 puff EVERY 6 HOURS (route: inhalation ) Med Classific ation: Respirato ry Therapy Agents bupropion HCl XL 300 mg 24 hr tablet, extended release 2024-03 00:00: 00 Yes [id number] 1 tablet EVERY AM 1 tablet EVERY AM (route: oral) Med Classific ation: Central Nervous System Agents carbidopa 25 mg-levodopa 100 mg disintegrat ing tablet 2024-03 00:00: 00 Yes [id number] 1.5 tablet NOON 1.5 tablet NOON (route: oral) Med Classific ation: Central Nervous System Agents carbidopa 25 mg-levodopa 100 mg tablet 2024-03 00:00: 00 Yes [id number] 1.5 tablet EVERY AM 1.5 tablet EVERY AM (route: oral) Med Classific ation: Central Nervous System Agents carbidopa 25 mg-levodopa 100 mg tablet 2024-03 00:00: 00 Yes [id number] 1.5 tablet EVERY PM 1.5 tablet EVERY PM (route: oral) Med Classific ation: Central Nervous System Agents carbidopa 25 mg-levodopa 100 mg tablet 2024-03 00:00: 00 Yes [id number] 1.5 tablet BEDTIME 1.5 tablet BEDTIME (route: oral) Med Classific ation: Central Nervous System Agents cyclobenzap rine 10 mg tablet 2024-03 00:00: 00 Yes [id number] 1 tablet BEDTIME 1 tablet BEDTIME (route: oral) Med Classific ation: Locomotor System famotidine 40 mg tablet 2024-03 00:00: 00 Yes [id number] 1 tablet EVERY AM 1 tablet EVERY AM (route: oral) Med Classific ation: Gastroint estinal Therapy Agents meloxicam 15 mg tablet 2024-03 00:00: 00 Yes [id number] 1 tablet EVERY AM 1 tablet EVERY AM (route: oral) Med Classific ation: Analgesic , Anti-infl ammatory or Antipyret ic paroxetine 40 mg tablet 2024-03 00:00: 00 Yes [id number] 1 tablet EVERY AM 1 tablet EVERY AM (route: oral) Med Classific ation: Central Nervous System Agents trazodone 50 mg tablet 2024-03 00:00: 00 Yes [id number] 1 tablet BEDTIME 1 tablet BEDTIME (route: oral) Med Classific ation: Central Nervous System Agents Tylenol Arthritis Pain 650 mg tablet,exte nded release 2024-03 0-23 00:00: 00 Yes [id number] 1 tablet EVERY 8 HOURS 1 tablet EVERY 8 HOURS (route: oral) Med Classific ation: Analgesic , Anti-infl ammatory or Antipyret ic Farxiga 5 mg tablet 2024-03 1-03 00:00: 00 Yes [id number] 1 tablet EVERY AM 1 tablet EVERY [...] AWARENESS FOR SAFETY AND WILL NOTIFY CLINICAL NAVAL ARCHITECT AND PHYSICIAN/PROVIDER WITH ANY CHANGE IN CONDITION. [code = SKILLED NURSE WILL MAINTAIN SITUATIONAL AWARENESS FOR SAFETY AND WILL NOTIFY CLINICAL NAVAL ARCHITECT AND PHYSICIAN/PROVIDER WITH ANY CHANGE IN CONDITION.] [...] CLEAN AND NEATLY DRESSED IN KITCHEN WITH TUBE CLEANING OPERATOR PRESENT D/T MOUSE PROBLEM. 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
--- OUTSIDE RECORDS SUMMARY | 2025-03-18 19:00 | XMS_ITS | Clinical Summary ---
Author Organization Unknown Care Team Providers Care Crotch Piece Baster Name Role Phone YAIMA RASMUSSEN, KAVITA BEST Unavailable Unamirella SPEARS RN, SNEHAL Unavailable Unavailable Payers Payer Name Policy Type Policy Number Effective Date Expira tion Date [employer] MEDICARE ADVANTAGE FFS [id number] MEDICARE - [place] - PDGM [id number] Problems Condition Name Condition Details Condition Category [...] 06-25 00:00: 00 12-31 23:59 :00 No [id number] 2 puff DIRECTED 2 puff DIRECTED (route: inhalation ) Med Classific ation: Respirato ry Therapy Agents bupropion HCl XL 300 mg 24 hr tablet, extended release 06-25 00:00: 00 12-31 23:59 :00 No [id number] 1 tablet DAILY 1 tablet DAILY (route: oral) Med Classific ation: Central Nervous System Agents carbidopa 25 mg-levodopa 100 mg tablet 417 00:00: 00 12-31 23:59 :00 No [id number] 1.5 tablet 4 TIMES DAILY 1.5 tablet 4 TIMES DAILY (route: oral) Med Classific ation: Central Nervous System Agents famotidine 40 mg tablet 417 00:00: 00 09-01 23:59 :00 No [id number] 1 tablet DAILY 1 tablet DAILY (route: oral) Med Classific ation: Gastroint estinal Therapy Agents paroxetine 40 mg tablet 17 00:00: 00 12-31 23:59 :00 No [id number] 1 tablet DAILY 1 tablet DAILY (route: oral) Med Classific ation: Central Nervous System Agents trazodone 50 mg tablet 06-25 00:00: 00 09-01 23:59 :00 No [id number] Per instruc tions BEDTIME Per instructio ns BEDTIME (route: oral) Med Classific ation: Central Nervous System Agents gabapentin 100 mg capsule -24 00:00: 00 09-01 23:59 :00 No [id number] pain Per instruc tions BEDTIME Per instructio ns BEDTIME (route: oral) Med Classific ation: Central Nervous System Agents omeprazole 40 mg capsule,del ayed release -24 00:00: 00 05-20 23:59 :00 No [id number] 1 capsule DAILY 1 capsule DAILY (route: oral) Med Classific ation: Gastroint estinal Therapy Agents gabapentin 100 mg capsule 2023-03 0- 00:00: 00 09-01 23:59 :00 No [id number] Per instruc tions 2 TIMES DAILY Per instructio ns 2 TIMES DAILY (route: oral) Med Classific ation: Central Nervous System Agents famotidine 40 mg tablet 3-16 00:00: 00 12-31 23:59 :00 No [id number] 1 tablet EVERY AM 1 tablet EVERY AM (route: oral) Med Classific ation: Gastroint estinal Therapy Agents Tylenol Arthritis Pain 650 mg tablet,exte nded release 3-21 00:00: 00 12-31 23:59 :00 No [id number] 1 tablet EVERY 8 HOURS 1 tablet EVERY 8 HOURS (route: oral) Med Classific ation: Analgesic , Anti-infl ammatory or Antipyret ic cyclobenzap rine 10 mg tablet 08-05 00:00: 00 09-01 23:59 :00 No [id number] 1 tablet BEDTIME 1 tablet BEDTIME (route: oral) Med Classific ation: Locomotor System meloxicam 15 mg tablet 08-05 00:00: 00 09-01 23:59 :00 No [id number] 1 tablet DAILY 1 tablet DAILY (route: oral) Med Classific ation: Analgesic , Anti-infl ammatory or Antipyret ic cyclobenzap rine 10 mg tablet 09-01 00:00: 00 12-31 23:59 :00 No [id number] 1 tablet BEDTIME 1 tablet BEDTIME (route: oral) Med Classific ation: Locomotor System meloxicam 15 mg tablet 09-01 00:00: 00 12-31 23:59 :00 No [id number] 1 tablet EVERY AM 1 tablet EVERY AM (route: oral) Med Classific ation: Analgesic , Anti-infl ammatory or Antipyret ic trazodone 50 mg tablet 09-01 00:00: 00 12-31 23:59 :00 No [id number] Per instruc tions BEDTIME Per instructio ns BEDTIME (route: oral) Med Classific ation: Central Nervous System Agents erythromyci n 5 mg/gram (0.5 %) eye ointment 2024-03 00:00: 00 Yes [id number] Per instruc tions 4 TIMES DAILY Per instructio ns 4 TIMES DAILY (route: ophthalmic (eye)) Med Classific ation: Ophthalmi c Agents albuterol sulfate HFA 90 mcg/actuati on aerosol inhaler 2024-03 00:00: 00 Yes [id number] 2 puff EVERY 6 HOURS 2 puff EVERY 6 HOURS (route: inhalation ) Med Classific ation: Respirato ry Therapy Agents bupropion HCl XL 300 mg 24 hr tablet, extended release 2024-03 00:00: 00 Yes [id number] 1 tablet EVERY AM 1 tablet EVERY AM (route: oral) Med Classific ation: Central Nervous System Agents carbidopa 25 mg-levodopa 100 mg disintegrat ing tablet 2024-03 00:00: 00 Yes [id number] 1.5 tablet NOON 1.5 tablet NOON (route: oral) Med Classific ation: Central Nervous System Agents carbidopa 25 mg-levodopa 100 mg tablet 2024-03 00:00: 00 Yes [id number] 1.5 tablet EVERY AM 1.5 tablet EVERY AM (route: oral) Med Classific ation: Central Nervous System Agents carbidopa 25 mg-levodopa 100 mg tablet 2024-03 00:00: 00 Yes [id number] 1.5 tablet EVERY PM 1.5 tablet EVERY PM (route: oral) Med Classific ation: Central Nervous System Agents carbidopa 25 mg-levodopa 100 mg tablet 2024-03 00:00: 00 Yes [id number] 1.5 tablet BEDTIME 1.5 tablet BEDTIME (route: oral) Med Classific ation: Central Nervous System Agents cyclobenzap rine 10 mg tablet 2024-03 00:00: 00 Yes [id number] 1 tablet BEDTIME 1 tablet BEDTIME (route: oral) Med Classific ation: Locomotor System famotidine 40 mg tablet 2024-03 00:00: 00 Yes [id number] 1 tablet EVERY AM 1 tablet EVERY AM (route: oral) Med Classific ation: Gastroint estinal Therapy Agents meloxicam 15 mg tablet 2024-03 00:00: 00 Yes [id number] 1 tablet EVERY AM 1 tablet EVERY AM (route: oral) Med Classific ation: Analgesic , Anti-infl ammatory or Antipyret ic paroxetine 40 mg tablet 2024-03 00:00: 00 Yes [id number] 1 tablet EVERY AM 1 tablet EVERY AM (route: oral) Med Classific ation: Central Nervous System Agents trazodone 50 mg tablet 2024-03 00:00: 00 Yes [id number] 1 tablet BEDTIME 1 tablet BEDTIME (route: oral) Med Classific ation: Central Nervous System Agents Tylenol Arthritis Pain 650 mg tablet,exte nded release 2024-03 0-23 00:00: 00 Yes [id number] 1 tablet EVERY 8 HOURS 1 tablet EVERY 8 HOURS (route: oral) Med Classific ation: Analgesic , Anti-infl ammatory or Antipyret ic Farxiga 5 mg tablet 2024-03 1-03 00:00: 00 Yes [id number] 1 tablet EVERY AM 1 tablet EVERY [...] AWARENESS FOR SAFETY AND WILL NOTIFY CLINICAL RURAL SERVICE ENGINEER AND PHYSICIAN/PROVIDER WITH ANY CHANGE IN CONDITION. [code = SKILLED NURSE WILL MAINTAIN SITUATIONAL AWARENESS FOR SAFETY AND WILL NOTIFY CLINICAL RURAL SERVICE ENGINEER AND PHYSICIAN/PROVIDER WITH ANY CHANGE IN [...] CARE WILL BE ESTABLISHED THAT MEETS PATIENT'S LONGTERM NEEDS AND INCLUDES PATIENT GOAL FOR HOME [...] CLEAN AND NEATLY DRESSED IN KITCHEN WITH CITY MARSHAL PRESENT D/T MOUSE PROBLEM. HER HOME IS [...] WITH HER MED PP PER HER MED ICT ACCOUNT MANAGER AND DENIES ANY ADVERSE EFFECTS.</paragraph> Encounters Start Date/Time End Date/Time Encounter Type Admission Type Attending Clinicians Care Facility Care Department Encounter ID Discharge Date Discharge Status Discharge Condition Discharge Reason Percent Goals Met 2025-01-19 00:00:00 2025-03-19 00:00:00 Outpatient RECERTIFIC ATSNEHAL VELA [facility] [id number] 76.00
--- OUTSIDE RECORDS SUMMARY | 2025-03-18 19:00 | XMS_ITS | Clinical Summary ---
Author Organization Unknown Care Team Providers Care Boiler Tester Name Role Phone YAIMA RASMUSSEN, KAVITA BEST Unavailable Unamirella SPEARS RN, SNEHAL Unavailable Unavailable Payers Payer Name Policy Type Policy Number Effective Date Expira tion Date [employer] MEDICARE ADVANTAGE FFS [id number] MEDICARE - [place] - PDGM [id number] Problems Condition Name Condition Details Condition Category [...] 06-25 00:00: 00 12-31 23:59 :00 No [id number] 2 puff DIRECTED 2 puff DIRECTED (route: inhalation ) Med Classific ation: Respirato ry Therapy Agents bupropion HCl XL 300 mg 24 hr tablet, extended release 06-25 00:00: 00 12-31 23:59 :00 No [id number] 1 tablet DAILY 1 tablet DAILY (route: oral) Med Classific ation: Central Nervous System Agents carbidopa 25 mg-levodopa 100 mg tablet 417 00:00: 00 12-31 23:59 :00 No [id number] 1.5 tablet 4 TIMES DAILY 1.5 tablet 4 TIMES DAILY (route: oral) Med Classific ation: Central Nervous System Agents famotidine 40 mg tablet 417 00:00: 00 09-01 23:59 :00 No [id number] 1 tablet DAILY 1 tablet DAILY (route: oral) Med Classific ation: Gastroint estinal Therapy Agents paroxetine 40 mg tablet 17 00:00: 00 12-31 23:59 :00 No [id number] 1 tablet DAILY 1 tablet DAILY (route: oral) Med Classific ation: Central Nervous System Agents trazodone 50 mg tablet 06-25 00:00: 00 09-01 23:59 :00 No [id number] Per instruc tions BEDTIME Per instructio ns BEDTIME (route: oral) Med Classific ation: Central Nervous System Agents gabapentin 100 mg capsule -24 00:00: 00 09-01 23:59 :00 No [id number] pain Per instruc tions BEDTIME Per instructio ns BEDTIME (route: oral) Med Classific ation: Central Nervous System Agents omeprazole 40 mg capsule,del ayed release -24 00:00: 00 05-20 23:59 :00 No [id number] 1 capsule DAILY 1 capsule DAILY (route: oral) Med Classific ation: Gastroint estinal Therapy Agents gabapentin 100 mg capsule 2023-03 0- 00:00: 00 09-01 23:59 :00 No [id number] Per instruc tions 2 TIMES DAILY Per instructio ns 2 TIMES DAILY (route: oral) Med Classific ation: Central Nervous System Agents famotidine 40 mg tablet 3-16 00:00: 00 12-31 23:59 :00 No [id number] 1 tablet EVERY AM 1 tablet EVERY AM (route: oral) Med Classific ation: Gastroint estinal Therapy Agents Tylenol Arthritis Pain 650 mg tablet,exte nded release 3-21 00:00: 00 12-31 23:59 :00 No [id number] 1 tablet EVERY 8 HOURS 1 tablet EVERY 8 HOURS (route: oral) Med Classific ation: Analgesic , Anti-infl ammatory or Antipyret ic cyclobenzap rine 10 mg tablet 08-05 00:00: 00 09-01 23:59 :00 No [id number] 1 tablet BEDTIME 1 tablet BEDTIME (route: oral) Med Classific ation: Locomotor System meloxicam 15 mg tablet 08-05 00:00: 00 09-01 23:59 :00 No [id number] 1 tablet DAILY 1 tablet DAILY (route: oral) Med Classific ation: Analgesic , Anti-infl ammatory or Antipyret ic cyclobenzap rine 10 mg tablet 09-01 00:00: 00 12-31 23:59 :00 No [id number] 1 tablet BEDTIME 1 tablet BEDTIME (route: oral) Med Classific ation: Locomotor System meloxicam 15 mg tablet 09-01 00:00: 00 12-31 23:59 :00 No [id number] 1 tablet EVERY AM 1 tablet EVERY AM (route: oral) Med Classific ation: Analgesic , Anti-infl ammatory or Antipyret ic trazodone 50 mg tablet 09-01 00:00: 00 12-31 23:59 :00 No [id number] Per instruc tions BEDTIME Per instructio ns BEDTIME (route: oral) Med Classific ation: Central Nervous System Agents erythromyci n 5 mg/gram (0.5 %) eye ointment 2024-03 00:00: 00 Yes [id number] Per instruc tions 4 TIMES DAILY Per instructio ns 4 TIMES DAILY (route: ophthalmic (eye)) Med Classific ation: Ophthalmi c Agents albuterol sulfate HFA 90 mcg/actuati on aerosol inhaler 2024-03 00:00: 00 Yes [id number] 2 puff EVERY 6 HOURS 2 puff EVERY 6 HOURS (route: inhalation ) Med Classific ation: Respirato ry Therapy Agents bupropion HCl XL 300 mg 24 hr tablet, extended release 2024-03 00:00: 00 Yes [id number] 1 tablet EVERY AM 1 tablet EVERY AM (route: oral) Med Classific ation: Central Nervous System Agents carbidopa 25 mg-levodopa 100 mg disintegrat ing tablet 2024-03 00:00: 00 Yes [id number] 1.5 tablet NOON 1.5 tablet NOON (route: oral) Med Classific ation: Central Nervous System Agents carbidopa 25 mg-levodopa 100 mg tablet 2024-03 00:00: 00 Yes [id number] 1.5 tablet EVERY AM 1.5 tablet EVERY AM (route: oral) Med Classific ation: Central Nervous System Agents carbidopa 25 mg-levodopa 100 mg tablet 2024-03 00:00: 00 Yes [id number] 1.5 tablet EVERY PM 1.5 tablet EVERY PM (route: oral) Med Classific ation: Central Nervous System Agents carbidopa 25 mg-levodopa 100 mg tablet 2024-03 00:00: 00 Yes [id number] 1.5 tablet BEDTIME 1.5 tablet BEDTIME (route: oral) Med Classific ation: Central Nervous System Agents cyclobenzap rine 10 mg tablet 2024-03 00:00: 00 Yes [id number] 1 tablet BEDTIME 1 tablet BEDTIME (route: oral) Med Classific ation: Locomotor System famotidine 40 mg tablet 2024-03 00:00: 00 Yes [id number] 1 tablet EVERY AM 1 tablet EVERY AM (route: oral) Med Classific ation: Gastroint estinal Therapy Agents meloxicam 15 mg tablet 2024-03 00:00: 00 Yes [id number] 1 tablet EVERY AM 1 tablet EVERY AM (route: oral) Med Classific ation: Analgesic , Anti-infl ammatory or Antipyret ic paroxetine 40 mg tablet 2024-03 00:00: 00 Yes [id number] 1 tablet EVERY AM 1 tablet EVERY AM (route: oral) Med Classific ation: Central Nervous System Agents trazodone 50 mg tablet 2024-03 00:00: 00 Yes [id number] 1 tablet BEDTIME 1 tablet BEDTIME (route: oral) Med Classific ation: Central Nervous System Agents Tylenol Arthritis Pain 650 mg tablet,exte nded release 2024-03 0-23 00:00: 00 Yes [id number] 1 tablet EVERY 8 HOURS 1 tablet EVERY 8 HOURS (route: oral) Med Classific ation: Analgesic , Anti-infl ammatory or Antipyret ic Farxiga 5 mg tablet 2024-03 1-03 00:00: 00 Yes [id number] 1 tablet EVERY AM 1 tablet EVERY [...] AWARENESS FOR SAFETY AND WILL NOTIFY CLINICAL CLINICAL RECRUITER AND PHYSICIAN/PROVIDER WITH ANY CHANGE IN CONDITION. [code = SKILLED NURSE WILL MAINTAIN SITUATIONAL AWARENESS FOR SAFETY AND WILL NOTIFY CLINICAL CLINICAL RECRUITER AND PHYSICIAN/PROVIDER WITH ANY CHANGE IN CONDITION.] [...] CLEAN AND NEATLY DRESSED IN KITCHEN WITH OFFICE CLERK ROUTINE PRESENT D/T MOUSE PROBLEM. 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
--- OUTSIDE RECORDS SUMMARY | 2025-03-18 19:00 | XMS_ITS | Clinical Summary ---
Author Organization Unknown Care Team Providers Care Architecture Professor Name Role Phone YAIMA RASMUSSEN, KAVITA BEST Unavailable Unamirella SPEARS RN, SNEHAL Unavailable Unavailable Payers Payer Name Policy Type Policy Number Effective Date Expira tion Date [employer] MEDICARE ADVANTAGE FFS [id number] MEDICARE - [place]GM [id number] Problems Condition Name Condition Details Condition Category [...] 06-25 00:00: 00 12-31 23:59 :00 No [id number] 2 puff DIRECTED 2 puff DIRECTED (route: inhalation ) Med Classific ation: Respirato ry Therapy Agents bupropion HCl XL 300 mg 24 hr tablet, extended release 06-25 00:00: 00 12-31 23:59 :00 No [id number] 1 tablet DAILY 1 tablet DAILY (route: oral) Med Classific ation: Central Nervous System Agents carbidopa 25 mg-levodopa 100 mg tablet 417 00:00: 00 12-31 23:59 :00 No [id number] 1.5 tablet 4 TIMES DAILY 1.5 tablet 4 TIMES DAILY (route: oral) Med Classific ation: Central Nervous System Agents famotidine 40 mg tablet 417 00:00: 00 09-01 23:59 :00 No [id number] 1 tablet DAILY 1 tablet DAILY (route: oral) Med Classific ation: Gastroint estinal Therapy Agents paroxetine 40 mg tablet 17 00:00: 00 12-31 23:59 :00 No [id number] 1 tablet DAILY 1 tablet DAILY (route: oral) Med Classific ation: Central Nervous System Agents trazodone 50 mg tablet 06-25 00:00: 00 09-01 23:59 :00 No [id number] Per instruc tions BEDTIME Per instructio ns BEDTIME (route: oral) Med Classific ation: Central Nervous System Agents gabapentin 100 mg capsule -24 00:00: 00 09-01 23:59 :00 No [id number] pain Per instruc tions BEDTIME Per instructio ns BEDTIME (route: oral) Med Classific ation: Central Nervous System Agents omeprazole 40 mg capsule,del ayed release -24 00:00: 00 05-20 23:59 :00 No [id number] 1 capsule DAILY 1 capsule DAILY (route: oral) Med Classific ation: Gastroint estinal Therapy Agents gabapentin 100 mg capsule 2023-03 0- 00:00: 00 09-01 23:59 :00 No [id number] Per instruc tions 2 TIMES DAILY Per instructio ns 2 TIMES DAILY (route: oral) Med Classific ation: Central Nervous System Agents famotidine 40 mg tablet 3-16 00:00: 00 12-31 23:59 :00 No [id number] 1 tablet EVERY AM 1 tablet EVERY AM (route: oral) Med Classific ation: Gastroint estinal Therapy Agents Tylenol Arthritis Pain 650 mg tablet,exte nded release 3-21 00:00: 00 12-31 23:59 :00 No [id number] 1 tablet EVERY 8 HOURS 1 tablet EVERY 8 HOURS (route: oral) Med Classific ation: Analgesic , Anti-infl ammatory or Antipyret ic cyclobenzap rine 10 mg tablet 08-05 00:00: 00 09-01 23:59 :00 No [id number] 1 tablet BEDTIME 1 tablet BEDTIME (route: oral) Med Classific ation: Locomotor System meloxicam 15 mg tablet 08-05 00:00: 00 09-01 23:59 :00 No [id number] 1 tablet DAILY 1 tablet DAILY (route: oral) Med Classific ation: Analgesic , Anti-infl ammatory or Antipyret ic cyclobenzap rine 10 mg tablet 09-01 00:00: 00 12-31 23:59 :00 No [id number] 1 tablet BEDTIME 1 tablet BEDTIME (route: oral) Med Classific ation: Locomotor System meloxicam 15 mg tablet 09-01 00:00: 00 12-31 23:59 :00 No [id number] 1 tablet EVERY AM 1 tablet EVERY AM (route: oral) Med Classific ation: Analgesic , Anti-infl ammatory or Antipyret ic trazodone 50 mg tablet 09-01 00:00: 00 12-31 23:59 :00 No [id number] Per instruc tions BEDTIME Per instructio ns BEDTIME (route: oral) Med Classific ation: Central Nervous System Agents erythromyci n 5 mg/gram (0.5 %) eye ointment 2024-03 00:00: 00 Yes [id number] Per instruc tions 4 TIMES DAILY Per instructio ns 4 TIMES DAILY (route: ophthalmic (eye)) Med Classific ation: Ophthalmi c Agents albuterol sulfate HFA 90 mcg/actuati on aerosol inhaler 2024-03 00:00: 00 Yes [id number] 2 puff EVERY 6 HOURS 2 puff EVERY 6 HOURS (route: inhalation ) Med Classific ation: Respirato ry Therapy Agents bupropion HCl XL 300 mg 24 hr tablet, extended release 2024-03 00:00: 00 Yes [id number] 1 tablet EVERY AM 1 tablet EVERY AM (route: oral) Med Classific ation: Central Nervous System Agents carbidopa 25 mg-levodopa 100 mg disintegrat ing tablet 2024-03 00:00: 00 Yes [id number] 1.5 tablet NOON 1.5 tablet NOON (route: oral) Med Classific ation: Central Nervous System Agents carbidopa 25 mg-levodopa 100 mg tablet 2024-03 00:00: 00 Yes [id number] 1.5 tablet EVERY AM 1.5 tablet EVERY AM (route: oral) Med Classific ation: Central Nervous System Agents carbidopa 25 mg-levodopa 100 mg tablet 2024-03 00:00: 00 Yes [id number] 1.5 tablet EVERY PM 1.5 tablet EVERY PM (route: oral) Med Classific ation: Central Nervous System Agents carbidopa 25 mg-levodopa 100 mg tablet 2024-03 00:00: 00 Yes [id number] 1.5 tablet BEDTIME 1.5 tablet BEDTIME (route: oral) Med Classific ation: Central Nervous System Agents cyclobenzap rine 10 mg tablet 2024-03 00:00: 00 Yes [id number] 1 tablet BEDTIME 1 tablet BEDTIME (route: oral) Med Classific ation: Locomotor System famotidine 40 mg tablet 2024-03 00:00: 00 Yes [id number] 1 tablet EVERY AM 1 tablet EVERY AM (route: oral) Med Classific ation: Gastroint estinal Therapy Agents meloxicam 15 mg tablet 2024-03 00:00: 00 Yes [id number] 1 tablet EVERY AM 1 tablet EVERY AM (route: oral) Med Classific ation: Analgesic , Anti-infl ammatory or Antipyret ic paroxetine 40 mg tablet 2024-03 00:00: 00 Yes [id number] 1 tablet EVERY AM 1 tablet EVERY AM (route: oral) Med Classific ation: Central Nervous System Agents trazodone 50 mg tablet 2024-03 00:00: 00 Yes [id number] 1 tablet BEDTIME 1 tablet BEDTIME (route: oral) Med Classific ation: Central Nervous System Agents Tylenol Arthritis Pain 650 mg tablet,exte nded release 2024-03 0-23 00:00: 00 Yes [id number] 1 tablet EVERY 8 HOURS 1 tablet EVERY 8 HOURS (route: oral) Med Classific ation: Analgesic , Anti-infl ammatory or Antipyret ic Farxiga 5 mg tablet 2024-03 1-03 00:00: 00 Yes [id number] 1 tablet EVERY AM 1 tablet EVERY [...] AWARENESS FOR SAFETY AND WILL NOTIFY CLINICAL LABORATORY PHLEBOTOMIST AND PHYSICIAN/PROVIDER WITH ANY CHANGE IN CONDITION. 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 HER HOME [...] WITH HER MED PP PER HER MED LICENSED OPTICIAN AND DENIES ANY ADVERSE EFFECTS.</paragraph> Encounters Start Date/Time End Date/Time Encounter Type Admission Type Attending Clinicians Care Facility Care Department Encounter ID Discharge Date Discharge Status Discharge Condition Discharge Reason Percent Goals Met 2025-01-19 00:00:00 2025-03-19 00:00:00 Outpatient RECERTIFIC ATSNEHAL VELA [facility] [id number] 76.00
--- OUTSIDE RECORDS SUMMARY | 2025-03-18 19:00 | XMS_ITS | Clinical Summary ---
Author Organization Unknown Care Team Providers Care Baffle Installer Name Role Phone YAIMA RASMUSSEN, KAVITA BEST Unavailable Unamirella SPEARS RN, SNEHAL Unavailable Unavailable Payers Payer Name Policy Type Policy Number Effective Date Expira tion Date [employer] MEDICARE ADVANTAGE FFS [id number] MEDICARE - [place] PDGM [id number] Problems Condition Name Condition Details Condition Category [...] 06-25 00:00: 00 12-31 23:59 :00 No [id number] 2 puff DIRECTED 2 puff DIRECTED (route: inhalation ) Med Classific ation: Respirato ry Therapy Agents bupropion HCl XL 300 mg 24 hr tablet, extended release 06-25 00:00: 00 12-31 23:59 :00 No [id number] 1 tablet DAILY 1 tablet DAILY (route: oral) Med Classific ation: Central Nervous System Agents carbidopa 25 mg-levodopa 100 mg tablet 417 00:00: 00 12-31 23:59 :00 No [id number] 1.5 tablet 4 TIMES DAILY 1.5 tablet 4 TIMES DAILY (route: oral) Med Classific ation: Central Nervous System Agents famotidine 40 mg tablet 417 00:00: 00 09-01 23:59 :00 No [id number] 1 tablet DAILY 1 tablet DAILY (route: oral) Med Classific ation: Gastroint estinal Therapy Agents paroxetine 40 mg tablet 17 00:00: 00 12-31 23:59 :00 No [id number] 1 tablet DAILY 1 tablet DAILY (route: oral) Med Classific ation: Central Nervous System Agents trazodone 50 mg tablet 06-25 00:00: 00 09-01 23:59 :00 No [id number] Per instruc tions BEDTIME Per instructio ns BEDTIME (route: oral) Med Classific ation: Central Nervous System Agents gabapentin 100 mg capsule -24 00:00: 00 09-01 23:59 :00 No [id number] pain Per instruc tions BEDTIME Per instructio ns BEDTIME (route: oral) Med Classific ation: Central Nervous System Agents omeprazole 40 mg capsule,del ayed release -24 00:00: 00 05-20 23:59 :00 No [id number] 1 capsule DAILY 1 capsule DAILY (route: oral) Med Classific ation: Gastroint estinal Therapy Agents gabapentin 100 mg capsule 2023-03 0- 00:00: 00 09-01 23:59 :00 No [id number] Per instruc tions 2 TIMES DAILY Per instructio ns 2 TIMES DAILY (route: oral) Med Classific ation: Central Nervous System Agents famotidine 40 mg tablet 3-16 00:00: 00 12-31 23:59 :00 No [id number] 1 tablet EVERY AM 1 tablet EVERY AM (route: oral) Med Classific ation: Gastroint estinal Therapy Agents Tylenol Arthritis Pain 650 mg tablet,exte nded release 3-21 00:00: 00 12-31 23:59 :00 No [id number] 1 tablet EVERY 8 HOURS 1 tablet EVERY 8 HOURS (route: oral) Med Classific ation: Analgesic , Anti-infl ammatory or Antipyret ic cyclobenzap rine 10 mg tablet 08-05 00:00: 00 09-01 23:59 :00 No [id number] 1 tablet BEDTIME 1 tablet BEDTIME (route: oral) Med Classific ation: Locomotor System meloxicam 15 mg tablet 08-05 00:00: 00 09-01 23:59 :00 No [id number] 1 tablet DAILY 1 tablet DAILY (route: oral) Med Classific ation: Analgesic , Anti-infl ammatory or Antipyret ic cyclobenzap rine 10 mg tablet 09-01 00:00: 00 12-31 23:59 :00 No [id number] 1 tablet BEDTIME 1 tablet BEDTIME (route: oral) Med Classific ation: Locomotor System meloxicam 15 mg tablet 09-01 00:00: 00 12-31 23:59 :00 No [id number] 1 tablet EVERY AM 1 tablet EVERY AM (route: oral) Med Classific ation: Analgesic , Anti-infl ammatory or Antipyret ic trazodone 50 mg tablet 09-01 00:00: 00 12-31 23:59 :00 No [id number] Per instruc tions BEDTIME Per instructio ns BEDTIME (route: oral) Med Classific ation: Central Nervous System Agents erythromyci n 5 mg/gram (0.5 %) eye ointment 2024-03 00:00: 00 Yes [id number] Per instruc tions 4 TIMES DAILY Per instructio ns 4 TIMES DAILY (route: ophthalmic (eye)) Med Classific ation: Ophthalmi c Agents albuterol sulfate HFA 90 mcg/actuati on aerosol inhaler 2024-03 00:00: 00 Yes [id number] 2 puff EVERY 6 HOURS 2 puff EVERY 6 HOURS (route: inhalation ) Med Classific ation: Respirato ry Therapy Agents bupropion HCl XL 300 mg 24 hr tablet, extended release 2024-03 00:00: 00 Yes [id number] 1 tablet EVERY AM 1 tablet EVERY AM (route: oral) Med Classific ation: Central Nervous System Agents carbidopa 25 mg-levodopa 100 mg disintegrat ing tablet 2024-03 00:00: 00 Yes [id number] 1.5 tablet NOON 1.5 tablet NOON (route: oral) Med Classific ation: Central Nervous System Agents carbidopa 25 mg-levodopa 100 mg tablet 2024-03 00:00: 00 Yes [id number] 1.5 tablet EVERY AM 1.5 tablet EVERY AM (route: oral) Med Classific ation: Central Nervous System Agents carbidopa 25 mg-levodopa 100 mg tablet 2024-03 00:00: 00 Yes [id number] 1.5 tablet EVERY PM 1.5 tablet EVERY PM (route: oral) Med Classific ation: Central Nervous System Agents carbidopa 25 mg-levodopa 100 mg tablet 2024-03 00:00: 00 Yes [id number] 1.5 tablet BEDTIME 1.5 tablet BEDTIME (route: oral) Med Classific ation: Central Nervous System Agents cyclobenzap rine 10 mg tablet 2024-03 00:00: 00 Yes [id number] 1 tablet BEDTIME 1 tablet BEDTIME (route: oral) Med Classific ation: Locomotor System famotidine 40 mg tablet 2024-03 00:00: 00 Yes [id number] 1 tablet EVERY AM 1 tablet EVERY AM (route: oral) Med Classific ation: Gastroint estinal Therapy Agents meloxicam 15 mg tablet 2024-03 00:00: 00 Yes [id number] 1 tablet EVERY AM 1 tablet EVERY AM (route: oral) Med Classific ation: Analgesic , Anti-infl ammatory or Antipyret ic paroxetine 40 mg tablet 2024-03 00:00: 00 Yes [id number] 1 tablet EVERY AM 1 tablet EVERY AM (route: oral) Med Classific ation: Central Nervous System Agents trazodone 50 mg tablet 2024-03 00:00: 00 Yes [id number] 1 tablet BEDTIME 1 tablet BEDTIME (route: oral) Med Classific ation: Central Nervous System Agents Tylenol Arthritis Pain 650 mg tablet,exte nded release 2024-03 0-23 00:00: 00 Yes [id number] 1 tablet EVERY 8 HOURS 1 tablet EVERY 8 HOURS (route: oral) Med Classific ation: Analgesic , Anti-infl ammatory or Antipyret ic Farxiga 5 mg tablet 2024-03 1-03 00:00: 00 Yes [id number] 1 tablet EVERY AM 1 tablet EVERY [...] AWARENESS FOR SAFETY AND WILL NOTIFY CLINICAL INSOLE PRESSER AND PHYSICIAN/PROVIDER WITH ANY CHANGE IN CONDITION. 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
--- OUTSIDE RECORDS SUMMARY | 2025-03-18 19:00 | XMS_ITS | Clinical Summary ---
Author Organization Unknown Care Team Providers Care Patient Care Technician Instructor Name Role Phone YAIMA RASMUSSEN, KAVITA BEST Unavailable Unamirella SPEARS RN, SNEHAL Unavailable Unavailable Payers Payer Name Policy Type Policy Number Effective Date Expira tion Date [employer] MEDICARE ADVANTAGE FFS [id number] MEDICARE - [place] - PDGM [id number] Problems Condition Name Condition Details Condition Category [...] 06-25 00:00: 00 12-31 23:59 :00 No [id number] 2 puff DIRECTED 2 puff DIRECTED (route: inhalation ) Med Classific ation: Respirato ry Therapy Agents bupropion HCl XL 300 mg 24 hr tablet, extended release 06-25 00:00: 00 12-31 23:59 :00 No [id number] 1 tablet DAILY 1 tablet DAILY (route: oral) Med Classific ation: Central Nervous System Agents carbidopa 25 mg-levodopa 100 mg tablet 417 00:00: 00 12-31 23:59 :00 No [id number] 1.5 tablet 4 TIMES DAILY 1.5 tablet 4 TIMES DAILY (route: oral) Med Classific ation: Central Nervous System Agents famotidine 40 mg tablet 417 00:00: 00 09-01 23:59 :00 No [id number] 1 tablet DAILY 1 tablet DAILY (route: oral) Med Classific ation: Gastroint estinal Therapy Agents paroxetine 40 mg tablet 17 00:00: 00 12-31 23:59 :00 No [id number] 1 tablet DAILY 1 tablet DAILY (route: oral) Med Classific ation: Central Nervous System Agents trazodone 50 mg tablet 06-25 00:00: 00 09-01 23:59 :00 No [id number] Per instruc tions BEDTIME Per instructio ns BEDTIME (route: oral) Med Classific ation: Central Nervous System Agents gabapentin 100 mg capsule -24 00:00: 00 09-01 23:59 :00 No [id number] pain Per instruc tions BEDTIME Per instructio ns BEDTIME (route: oral) Med Classific ation: Central Nervous System Agents omeprazole 40 mg capsule,del ayed release -24 00:00: 00 05-20 23:59 :00 No [id number] 1 capsule DAILY 1 capsule DAILY (route: oral) Med Classific ation: Gastroint estinal Therapy Agents gabapentin 100 mg capsule 2023-03 0- 00:00: 00 09-01 23:59 :00 No [id number] Per instruc tions 2 TIMES DAILY Per instructio ns 2 TIMES DAILY (route: oral) Med Classific ation: Central Nervous System Agents famotidine 40 mg tablet 3-16 00:00: 00 12-31 23:59 :00 No [id number] 1 tablet EVERY AM 1 tablet EVERY AM (route: oral) Med Classific ation: Gastroint estinal Therapy Agents Tylenol Arthritis Pain 650 mg tablet,exte nded release 3-21 00:00: 00 12-31 23:59 :00 No [id number] 1 tablet EVERY 8 HOURS 1 tablet EVERY 8 HOURS (route: oral) Med Classific ation: Analgesic , Anti-infl ammatory or Antipyret ic cyclobenzap rine 10 mg tablet 08-05 00:00: 00 09-01 23:59 :00 No [id number] 1 tablet BEDTIME 1 tablet BEDTIME (route: oral) Med Classific ation: Locomotor System meloxicam 15 mg tablet 08-05 00:00: 00 09-01 23:59 :00 No [id number] 1 tablet DAILY 1 tablet DAILY (route: oral) Med Classific ation: Analgesic , Anti-infl ammatory or Antipyret ic cyclobenzap rine 10 mg tablet 09-01 00:00: 00 12-31 23:59 :00 No [id number] 1 tablet BEDTIME 1 tablet BEDTIME (route: oral) Med Classific ation: Locomotor System meloxicam 15 mg tablet 09-01 00:00: 00 12-31 23:59 :00 No [id number] 1 tablet EVERY AM 1 tablet EVERY AM (route: oral) Med Classific ation: Analgesic , Anti-infl ammatory or Antipyret ic trazodone 50 mg tablet 09-01 00:00: 00 12-31 23:59 :00 No [id number] Per instruc tions BEDTIME Per instructio ns BEDTIME (route: oral) Med Classific ation: Central Nervous System Agents erythromyci n 5 mg/gram (0.5 %) eye ointment 2024-03 00:00: 00 Yes [id number] Per instruc tions 4 TIMES DAILY Per instructio ns 4 TIMES DAILY (route: ophthalmic (eye)) Med Classific ation: Ophthalmi c Agents albuterol sulfate HFA 90 mcg/actuati on aerosol inhaler 2024-03 00:00: 00 Yes [id number] 2 puff EVERY 6 HOURS 2 puff EVERY 6 HOURS (route: inhalation ) Med Classific ation: Respirato ry Therapy Agents bupropion HCl XL 300 mg 24 hr tablet, extended release 2024-03 00:00: 00 Yes [id number] 1 tablet EVERY AM 1 tablet EVERY AM (route: oral) Med Classific ation: Central Nervous System Agents carbidopa 25 mg-levodopa 100 mg disintegrat ing tablet 2024-03 00:00: 00 Yes [id number] 1.5 tablet NOON 1.5 tablet NOON (route: oral) Med Classific ation: Central Nervous System Agents carbidopa 25 mg-levodopa 100 mg tablet 2024-03 00:00: 00 Yes [id number] 1.5 tablet EVERY AM 1.5 tablet EVERY AM (route: oral) Med Classific ation: Central Nervous System Agents carbidopa 25 mg-levodopa 100 mg tablet 2024-03 00:00: 00 Yes [id number] 1.5 tablet EVERY PM 1.5 tablet EVERY PM (route: oral) Med Classific ation: Central Nervous System Agents carbidopa 25 mg-levodopa 100 mg tablet 2024-03 00:00: 00 Yes [id number] 1.5 tablet BEDTIME 1.5 tablet BEDTIME (route: oral) Med Classific ation: Central Nervous System Agents cyclobenzap rine 10 mg tablet 2024-03 00:00: 00 Yes [id number] 1 tablet BEDTIME 1 tablet BEDTIME (route: oral) Med Classific ation: Locomotor System famotidine 40 mg tablet 2024-03 00:00: 00 Yes [id number] 1 tablet EVERY AM 1 tablet EVERY AM (route: oral) Med Classific ation: Gastroint estinal Therapy Agents meloxicam 15 mg tablet 2024-03 00:00: 00 Yes [id number] 1 tablet EVERY AM 1 tablet EVERY AM (route: oral) Med Classific ation: Analgesic , Anti-infl ammatory or Antipyret ic paroxetine 40 mg tablet 2024-03 00:00: 00 Yes [id number] 1 tablet EVERY AM 1 tablet EVERY AM (route: oral) Med Classific ation: Central Nervous System Agents trazodone 50 mg tablet 2024-03 00:00: 00 Yes [id number] 1 tablet BEDTIME 1 tablet BEDTIME (route: oral) Med Classific ation: Central Nervous System Agents Tylenol Arthritis Pain 650 mg tablet,exte nded release 2024-03 0-23 00:00: 00 Yes [id number] 1 tablet EVERY 8 HOURS 1 tablet EVERY 8 HOURS (route: oral) Med Classific ation: Analgesic , Anti-infl ammatory or Antipyret ic Farxiga 5 mg tablet 2024-03 1-03 00:00: 00 Yes [id number] 1 tablet EVERY AM 1 tablet EVERY [...] AWARENESS FOR SAFETY AND WILL NOTIFY CLINICAL DENTAL SURGERY DOCTOR AND PHYSICIAN/PROVIDER WITH ANY CHANGE IN CONDITION. 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 HER HOME IS [...] WITH HER MED PP PER HER MED COMMUNITY SPECIALIST AND DENIES ANY ADVERSE EFFECTS.</paragraph> Encounters Start Date/Time End Date/Time Encounter Type Admission Type Attending Clinicians Care Facility Care Department Encounter ID Discharge Date Discharge Status Discharge Condition Discharge Reason Percent Goals Met 2025-01-19 00:00:00 2025-03-19 00:00:00 Outpatient RECERTIFIC ATSNEHAL VELA [facility] [id number] 76.00
--- OUTSIDE RECORDS SUMMARY | 2025-03-18 19:00 | XMS_ITS | Clinical Summary ---
Author Organization Unknown Care Team Providers Care Hammerer Helper Name Role Phone YAIMA RASMUSSEN, KAVITA BEST Unavailable Unamirella SPEARS RN, SNEHAL Unavailable Unavailable Payers Payer Name Policy Type Policy Number Effective Date Expira tion Date [employer] MEDICARE ADVANTAGE FFS [id number] MEDICARE - [place] [id number] Problems Condition Name Condition Details Condition Category [...] 06-25 00:00: 00 12-31 23:59 :00 No [id number] 2 puff DIRECTED 2 puff DIRECTED (route: inhalation ) Med Classific ation: Respirato ry Therapy Agents bupropion HCl XL 300 mg 24 hr tablet, extended release 06-25 00:00: 00 12-31 23:59 :00 No [id number] 1 tablet DAILY 1 tablet DAILY (route: oral) Med Classific ation: Central Nervous System Agents carbidopa 25 mg-levodopa 100 mg tablet 417 00:00: 00 12-31 23:59 :00 No [id number] 1.5 tablet 4 TIMES DAILY 1.5 tablet 4 TIMES DAILY (route: oral) Med Classific ation: Central Nervous System Agents famotidine 40 mg tablet 417 00:00: 00 09-01 23:59 :00 No [id number] 1 tablet DAILY 1 tablet DAILY (route: oral) Med Classific ation: Gastroint estinal Therapy Agents paroxetine 40 mg tablet 17 00:00: 00 12-31 23:59 :00 No [id number] 1 tablet DAILY 1 tablet DAILY (route: oral) Med Classific ation: Central Nervous System Agents trazodone 50 mg tablet 06-25 00:00: 00 09-01 23:59 :00 No [id number] Per instruc tions BEDTIME Per instructio ns BEDTIME (route: oral) Med Classific ation: Central Nervous System Agents gabapentin 100 mg capsule -24 00:00: 00 09-01 23:59 :00 No [id number] pain Per instruc tions BEDTIME Per instructio ns BEDTIME (route: oral) Med Classific ation: Central Nervous System Agents omeprazole 40 mg capsule,del ayed release -24 00:00: 00 05-20 23:59 :00 No [id number] 1 capsule DAILY 1 capsule DAILY (route: oral) Med Classific ation: Gastroint estinal Therapy Agents gabapentin 100 mg capsule 2023-03 0- 00:00: 00 09-01 23:59 :00 No [id number] Per instruc tions 2 TIMES DAILY Per instructio ns 2 TIMES DAILY (route: oral) Med Classific ation: Central Nervous System Agents famotidine 40 mg tablet 3-16 00:00: 00 12-31 23:59 :00 No [id number] 1 tablet EVERY AM 1 tablet EVERY AM (route: oral) Med Classific ation: Gastroint estinal Therapy Agents Tylenol Arthritis Pain 650 mg tablet,exte nded release 3-21 00:00: 00 12-31 23:59 :00 No [id number] 1 tablet EVERY 8 HOURS 1 tablet EVERY 8 HOURS (route: oral) Med Classific ation: Analgesic , Anti-infl ammatory or Antipyret ic cyclobenzap rine 10 mg tablet 08-05 00:00: 00 09-01 23:59 :00 No [id number] 1 tablet BEDTIME 1 tablet BEDTIME (route: oral) Med Classific ation: Locomotor System meloxicam 15 mg tablet 08-05 00:00: 00 09-01 23:59 :00 No [id number] 1 tablet DAILY 1 tablet DAILY (route: oral) Med Classific ation: Analgesic , Anti-infl ammatory or Antipyret ic cyclobenzap rine 10 mg tablet 09-01 00:00: 00 12-31 23:59 :00 No [id number] 1 tablet BEDTIME 1 tablet BEDTIME (route: oral) Med Classific ation: Locomotor System meloxicam 15 mg tablet 09-01 00:00: 00 12-31 23:59 :00 No [id number] 1 tablet EVERY AM 1 tablet EVERY AM (route: oral) Med Classific ation: Analgesic , Anti-infl ammatory or Antipyret ic trazodone 50 mg tablet 09-01 00:00: 00 12-31 23:59 :00 No [id number] Per instruc tions BEDTIME Per instructio ns BEDTIME (route: oral) Med Classific ation: Central Nervous System Agents erythromyci n 5 mg/gram (0.5 %) eye ointment 2024-03 00:00: 00 Yes [id number] Per instruc tions 4 TIMES DAILY Per instructio ns 4 TIMES DAILY (route: ophthalmic (eye)) Med Classific ation: Ophthalmi c Agents albuterol sulfate HFA 90 mcg/actuati on aerosol inhaler 2024-03 00:00: 00 Yes [id number] 2 puff EVERY 6 HOURS 2 puff EVERY 6 HOURS (route: inhalation ) Med Classific ation: Respirato ry Therapy Agents bupropion HCl XL 300 mg 24 hr tablet, extended release 2024-03 00:00: 00 Yes [id number] 1 tablet EVERY AM 1 tablet EVERY AM (route: oral) Med Classific ation: Central Nervous System Agents carbidopa 25 mg-levodopa 100 mg disintegrat ing tablet 2024-03 00:00: 00 Yes [id number] 1.5 tablet NOON 1.5 tablet NOON (route: oral) Med Classific ation: Central Nervous System Agents carbidopa 25 mg-levodopa 100 mg tablet 2024-03 00:00: 00 Yes [id number] 1.5 tablet EVERY AM 1.5 tablet EVERY AM (route: oral) Med Classific ation: Central Nervous System Agents carbidopa 25 mg-levodopa 100 mg tablet 2024-03 00:00: 00 Yes [id number] 1.5 tablet EVERY PM 1.5 tablet EVERY PM (route: oral) Med Classific ation: Central Nervous System Agents carbidopa 25 mg-levodopa 100 mg tablet 2024-03 00:00: 00 Yes [id number] 1.5 tablet BEDTIME 1.5 tablet BEDTIME (route: oral) Med Classific ation: Central Nervous System Agents cyclobenzap rine 10 mg tablet 2024-03 00:00: 00 Yes [id number] 1 tablet BEDTIME 1 tablet BEDTIME (route: oral) Med Classific ation: Locomotor System famotidine 40 mg tablet 2024-03 00:00: 00 Yes [id number] 1 tablet EVERY AM 1 tablet EVERY AM (route: oral) Med Classific ation: Gastroint estinal Therapy Agents meloxicam 15 mg tablet 2024-03 00:00: 00 Yes [id number] 1 tablet EVERY AM 1 tablet EVERY AM (route: oral) Med Classific ation: Analgesic , Anti-infl ammatory or Antipyret ic paroxetine 40 mg tablet 2024-03 00:00: 00 Yes [id number] 1 tablet EVERY AM 1 tablet EVERY AM (route: oral) Med Classific ation: Central Nervous System Agents trazodone 50 mg tablet 2024-03 00:00: 00 Yes [id number] 1 tablet BEDTIME 1 tablet BEDTIME (route: oral) Med Classific ation: Central Nervous System Agents Tylenol Arthritis Pain 650 mg tablet,exte nded release 2024-03 0-23 00:00: 00 Yes [id number] 1 tablet EVERY 8 HOURS 1 tablet EVERY 8 HOURS (route: oral) Med Classific ation: Analgesic , Anti-infl ammatory or Antipyret ic Farxiga 5 mg tablet 2024-03 1-03 00:00: 00 Yes [id number] 1 tablet EVERY AM 1 tablet EVERY [...] FOR SAFETY AND WILL NOTIFY CLINICAL SIGN LANGUAGE INSTRUCTOR AND PHYSICIAN/PROVIDER WITH ANY CHANGE IN CONDITION. 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 HER HOME IS [...] WITH HER MED PP PER HER MED BANKING SUPERVISOR AND DENIES ANY ADVERSE EFFECTS.</paragraph> Encounters Start Date/Time End Date/Time Encounter Type Admission Type Attending Clinicians Care Facility Care Department Encounter ID Discharge Date Discharge Status Discharge Condition Discharge Reason Percent Goals Met 2025-01-19 00:00:00 2025-03-19 00:00:00 Outpatient RECERTIFIC ATSNEHAL VELA [facility] [id number] 76.00
--- OUTSIDE RECORDS SUMMARY | 2025-03-18 19:00 | XMS_ITS | Clinical Summary ---
Author Organization Unknown Care Team Providers Care Mold Shaker Name Role Phone YAIMA RASMUSSEN, KAVITA BEST Unavailable Unamirella SPEARS RN, SNEHAL Unavailable Unavailable Payers Payer Name Policy Type Policy Number Effective Date Expira tion Date [employer] MEDICARE ADVANTAGE FFS [id number] MEDICARE - [place]GM [id number] Problems Condition Name Condition Details Condition Category [...] 06-25 00:00: 00 12-31 23:59 :00 No [id number] 2 puff DIRECTED 2 puff DIRECTED (route: inhalation ) Med Classific ation: Respirato ry Therapy Agents bupropion HCl XL 300 mg 24 hr tablet, extended release 06-25 00:00: 00 12-31 23:59 :00 No [id number] 1 tablet DAILY 1 tablet DAILY (route: oral) Med Classific ation: Central Nervous System Agents carbidopa 25 mg-levodopa 100 mg tablet 417 00:00: 00 12-31 23:59 :00 No [id number] 1.5 tablet 4 TIMES DAILY 1.5 tablet 4 TIMES DAILY (route: oral) Med Classific ation: Central Nervous System Agents famotidine 40 mg tablet 417 00:00: 00 09-01 23:59 :00 No [id number] 1 tablet DAILY 1 tablet DAILY (route: oral) Med Classific ation: Gastroint estinal Therapy Agents paroxetine 40 mg tablet 17 00:00: 00 12-31 23:59 :00 No [id number] 1 tablet DAILY 1 tablet DAILY (route: oral) Med Classific ation: Central Nervous System Agents trazodone 50 mg tablet 06-25 00:00: 00 09-01 23:59 :00 No [id number] Per instruc tions BEDTIME Per instructio ns BEDTIME (route: oral) Med Classific ation: Central Nervous System Agents gabapentin 100 mg capsule -24 00:00: 00 09-01 23:59 :00 No [id number] pain Per instruc tions BEDTIME Per instructio ns BEDTIME (route: oral) Med Classific ation: Central Nervous System Agents omeprazole 40 mg capsule,del ayed release -24 00:00: 00 05-20 23:59 :00 No [id number] 1 capsule DAILY 1 capsule DAILY (route: oral) Med Classific ation: Gastroint estinal Therapy Agents gabapentin 100 mg capsule 2023-03 0- 00:00: 00 09-01 23:59 :00 No [id number] Per instruc tions 2 TIMES DAILY Per instructio ns 2 TIMES DAILY (route: oral) Med Classific ation: Central Nervous System Agents famotidine 40 mg tablet 3-16 00:00: 00 12-31 23:59 :00 No [id number] 1 tablet EVERY AM 1 tablet EVERY AM (route: oral) Med Classific ation: Gastroint estinal Therapy Agents Tylenol Arthritis Pain 650 mg tablet,exte nded release 3-21 00:00: 00 12-31 23:59 :00 No [id number] 1 tablet EVERY 8 HOURS 1 tablet EVERY 8 HOURS (route: oral) Med Classific ation: Analgesic , Anti-infl ammatory or Antipyret ic cyclobenzap rine 10 mg tablet 08-05 00:00: 00 09-01 23:59 :00 No [id number] 1 tablet BEDTIME 1 tablet BEDTIME (route: oral) Med Classific ation: Locomotor System meloxicam 15 mg tablet 08-05 00:00: 00 09-01 23:59 :00 No [id number] 1 tablet DAILY 1 tablet DAILY (route: oral) Med Classific ation: Analgesic , Anti-infl ammatory or Antipyret ic cyclobenzap rine 10 mg tablet 09-01 00:00: 00 12-31 23:59 :00 No [id number] 1 tablet BEDTIME 1 tablet BEDTIME (route: oral) Med Classific ation: Locomotor System meloxicam 15 mg tablet 09-01 00:00: 00 12-31 23:59 :00 No [id number] 1 tablet EVERY AM 1 tablet EVERY AM (route: oral) Med Classific ation: Analgesic , Anti-infl ammatory or Antipyret ic trazodone 50 mg tablet 09-01 00:00: 00 12-31 23:59 :00 No [id number] Per instruc tions BEDTIME Per instructio ns BEDTIME (route: oral) Med Classific ation: Central Nervous System Agents erythromyci n 5 mg/gram (0.5 %) eye ointment 2024-03 00:00: 00 Yes [id number] Per instruc tions 4 TIMES DAILY Per instructio ns 4 TIMES DAILY (route: ophthalmic (eye)) Med Classific ation: Ophthalmi c Agents albuterol sulfate HFA 90 mcg/actuati on aerosol inhaler 2024-03 00:00: 00 Yes [id number] 2 puff EVERY 6 HOURS 2 puff EVERY 6 HOURS (route: inhalation ) Med Classific ation: Respirato ry Therapy Agents bupropion HCl XL 300 mg 24 hr tablet, extended release 2024-03 00:00: 00 Yes [id number] 1 tablet EVERY AM 1 tablet EVERY AM (route: oral) Med Classific ation: Central Nervous System Agents carbidopa 25 mg-levodopa 100 mg disintegrat ing tablet 2024-03 00:00: 00 Yes [id number] 1.5 tablet NOON 1.5 tablet NOON (route: oral) Med Classific ation: Central Nervous System Agents carbidopa 25 mg-levodopa 100 mg tablet 2024-03 00:00: 00 Yes [id number] 1.5 tablet EVERY AM 1.5 tablet EVERY AM (route: oral) Med Classific ation: Central Nervous System Agents carbidopa 25 mg-levodopa 100 mg tablet 2024-03 00:00: 00 Yes [id number] 1.5 tablet EVERY PM 1.5 tablet EVERY PM (route: oral) Med Classific ation: Central Nervous System Agents carbidopa 25 mg-levodopa 100 mg tablet 2024-03 00:00: 00 Yes [id number] 1.5 tablet BEDTIME 1.5 tablet BEDTIME (route: oral) Med Classific ation: Central Nervous System Agents cyclobenzap rine 10 mg tablet 2024-03 00:00: 00 Yes [id number] 1 tablet BEDTIME 1 tablet BEDTIME (route: oral) Med Classific ation: Locomotor System famotidine 40 mg tablet 2024-03 00:00: 00 Yes [id number] 1 tablet EVERY AM 1 tablet EVERY AM (route: oral) Med Classific ation: Gastroint estinal Therapy Agents meloxicam 15 mg tablet 2024-03 00:00: 00 Yes [id number] 1 tablet EVERY AM 1 tablet EVERY AM (route: oral) Med Classific ation: Analgesic , Anti-infl ammatory or Antipyret ic paroxetine 40 mg tablet 2024-03 00:00: 00 Yes [id number] 1 tablet EVERY AM 1 tablet EVERY AM (route: oral) Med Classific ation: Central Nervous System Agents trazodone 50 mg tablet 2024-03 00:00: 00 Yes [id number] 1 tablet BEDTIME 1 tablet BEDTIME (route: oral) Med Classific ation: Central Nervous System Agents Tylenol Arthritis Pain 650 mg tablet,exte nded release 2024-03 0-23 00:00: 00 Yes [id number] 1 tablet EVERY 8 HOURS 1 tablet EVERY 8 HOURS (route: oral) Med Classific ation: Analgesic , Anti-infl ammatory or Antipyret ic Farxiga 5 mg tablet 2024-03 1-03 00:00: 00 Yes [id number] 1 tablet EVERY AM 1 tablet EVERY [...] PER FEDERAL REGULATIONS. THIS INCLUDES VISITS FOR REANTE, RECERT, SCIC, AND/OR DC.] Future Scheduled Test SKILLED NU RSE WILL MAINTAIN SITUATIONAL AWARENESS FOR SAFETY AND WILL NOTIFY CLINICAL LOCKET MAKER AND PHYSICIAN/PROVIDER WITH ANY CHANGE IN CONDITION. 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 HER HOME [...] WITH HER MED PP PER HER MED NETWORK OPERATIONS SPECIALIST AND DENIES ANY ADVERSE EFFECTS.</paragraph> Encounters Start Date/Time End Date/Time Encounter Type Admission Type Attending Clinicians Care Facility Care Department Encounter ID Discharge Date Discharge Status Discharge Condition Discharge Reason Percent Goals Met 2025-01-19 00:00:00 2025-03-19 00:00:00 Outpatient RECERTIFIC ATSNEHAL VELA [facility] [id number] 76.00
--- OUTSIDE RECORDS SUMMARY | 2025-03-18 19:00 | XMS_ITS | Clinical Summary ---
Author Organization Unknown Care Team Providers Care Technical Operations Manager Name Role Phone YAIMA RASMUSSEN, KAVITA BEST Unavailable Unamirella SPEARS RN, SNEHAL Unavailable Unavailable Payers Payer Name Policy Type Policy Number Effective Date Expira tion Date [employer] MEDICARE ADVANTAGE FFS [id number] MEDICARE - [place] - PDGM [id number] Problems Condition Name Condition Details Condition Category [...] 06-25 00:00: 00 12-31 23:59 :00 No [id number] 2 puff DIRECTED 2 puff DIRECTED (route: inhalation ) Med Classific ation: Respirato ry Therapy Agents bupropion HCl XL 300 mg 24 hr tablet, extended release 06-25 00:00: 00 12-31 23:59 :00 No [id number] 1 tablet DAILY 1 tablet DAILY (route: oral) Med Classific ation: Central Nervous System Agents carbidopa 25 mg-levodopa 100 mg tablet 417 00:00: 00 12-31 23:59 :00 No [id number] 1.5 tablet 4 TIMES DAILY 1.5 tablet 4 TIMES DAILY (route: oral) Med Classific ation: Central Nervous System Agents famotidine 40 mg tablet 417 00:00: 00 09-01 23:59 :00 No [id number] 1 tablet DAILY 1 tablet DAILY (route: oral) Med Classific ation: Gastroint estinal Therapy Agents paroxetine 40 mg tablet 17 00:00: 00 12-31 23:59 :00 No [id number] 1 tablet DAILY 1 tablet DAILY (route: oral) Med Classific ation: Central Nervous System Agents trazodone 50 mg tablet 06-25 00:00: 00 09-01 23:59 :00 No [id number] Per instruc tions BEDTIME Per instructio ns BEDTIME (route: oral) Med Classific ation: Central Nervous System Agents gabapentin 100 mg capsule -24 00:00: 00 09-01 23:59 :00 No [id number] pain Per instruc tions BEDTIME Per instructio ns BEDTIME (route: oral) Med Classific ation: Central Nervous System Agents omeprazole 40 mg capsule,del ayed release -24 00:00: 00 05-20 23:59 :00 No [id number] 1 capsule DAILY 1 capsule DAILY (route: oral) Med Classific ation: Gastroint estinal Therapy Agents gabapentin 100 mg capsule 2023-03 0- 00:00: 00 09-01 23:59 :00 No [id number] Per instruc tions 2 TIMES DAILY Per instructio ns 2 TIMES DAILY (route: oral) Med Classific ation: Central Nervous System Agents famotidine 40 mg tablet 3-16 00:00: 00 12-31 23:59 :00 No [id number] 1 tablet EVERY AM 1 tablet EVERY AM (route: oral) Med Classific ation: Gastroint estinal Therapy Agents Tylenol Arthritis Pain 650 mg tablet,exte nded release 3-21 00:00: 00 12-31 23:59 :00 No [id number] 1 tablet EVERY 8 HOURS 1 tablet EVERY 8 HOURS (route: oral) Med Classific ation: Analgesic , Anti-infl ammatory or Antipyret ic cyclobenzap rine 10 mg tablet 08-05 00:00: 00 09-01 23:59 :00 No [id number] 1 tablet BEDTIME 1 tablet BEDTIME (route: oral) Med Classific ation: Locomotor System meloxicam 15 mg tablet 08-05 00:00: 00 09-01 23:59 :00 No [id number] 1 tablet DAILY 1 tablet DAILY (route: oral) Med Classific ation: Analgesic , Anti-infl ammatory or Antipyret ic cyclobenzap rine 10 mg tablet 09-01 00:00: 00 12-31 23:59 :00 No [id number] 1 tablet BEDTIME 1 tablet BEDTIME (route: oral) Med Classific ation: Locomotor System meloxicam 15 mg tablet 09-01 00:00: 00 12-31 23:59 :00 No [id number] 1 tablet EVERY AM 1 tablet EVERY AM (route: oral) Med Classific ation: Analgesic , Anti-infl ammatory or Antipyret ic trazodone 50 mg tablet 09-01 00:00: 00 12-31 23:59 :00 No [id number] Per instruc tions BEDTIME Per instructio ns BEDTIME (route: oral) Med Classific ation: Central Nervous System Agents erythromyci n 5 mg/gram (0.5 %) eye ointment 2024-03 00:00: 00 Yes [id number] Per instruc tions 4 TIMES DAILY Per instructio ns 4 TIMES DAILY (route: ophthalmic (eye)) Med Classific ation: Ophthalmi c Agents albuterol sulfate HFA 90 mcg/actuati on aerosol inhaler 2024-03 00:00: 00 Yes [id number] 2 puff EVERY 6 HOURS 2 puff EVERY 6 HOURS (route: inhalation ) Med Classific ation: Respirato ry Therapy Agents bupropion HCl XL 300 mg 24 hr tablet, extended release 2024-03 00:00: 00 Yes [id number] 1 tablet EVERY AM 1 tablet EVERY AM (route: oral) Med Classific ation: Central Nervous System Agents carbidopa 25 mg-levodopa 100 mg disintegrat ing tablet 2024-03 00:00: 00 Yes [id number] 1.5 tablet NOON 1.5 tablet NOON (route: oral) Med Classific ation: Central Nervous System Agents carbidopa 25 mg-levodopa 100 mg tablet 2024-03 00:00: 00 Yes [id number] 1.5 tablet EVERY AM 1.5 tablet EVERY AM (route: oral) Med Classific ation: Central Nervous System Agents carbidopa 25 mg-levodopa 100 mg tablet 2024-03 00:00: 00 Yes [id number] 1.5 tablet EVERY PM 1.5 tablet EVERY PM (route: oral) Med Classific ation: Central Nervous System Agents carbidopa 25 mg-levodopa 100 mg tablet 2024-03 00:00: 00 Yes [id number] 1.5 tablet BEDTIME 1.5 tablet BEDTIME (route: oral) Med Classific ation: Central Nervous System Agents cyclobenzap rine 10 mg tablet 2024-03 00:00: 00 Yes [id number] 1 tablet BEDTIME 1 tablet BEDTIME (route: oral) Med Classific ation: Locomotor System famotidine 40 mg tablet 2024-03 00:00: 00 Yes [id number] 1 tablet EVERY AM 1 tablet EVERY AM (route: oral) Med Classific ation: Gastroint estinal Therapy Agents meloxicam 15 mg tablet 2024-03 00:00: 00 Yes [id number] 1 tablet EVERY AM 1 tablet EVERY AM (route: oral) Med Classific ation: Analgesic , Anti-infl ammatory or Antipyret ic paroxetine 40 mg tablet 2024-03 00:00: 00 Yes [id number] 1 tablet EVERY AM 1 tablet EVERY AM (route: oral) Med Classific ation: Central Nervous System Agents trazodone 50 mg tablet 2024-03 00:00: 00 Yes [id number] 1 tablet BEDTIME 1 tablet BEDTIME (route: oral) Med Classific ation: Central Nervous System Agents Tylenol Arthritis Pain 650 mg tablet,exte nded release 2024-03 0-23 00:00: 00 Yes [id number] 1 tablet EVERY 8 HOURS 1 tablet EVERY 8 HOURS (route: oral) Med Classific ation: Analgesic , Anti-infl ammatory or Antipyret ic Farxiga 5 mg tablet 2024-03 1-03 00:00: 00 Yes [id number] 1 tablet EVERY AM 1 tablet EVERY [...] AWARENESS FOR SAFETY AND WILL NOTIFY CLINICAL SENIOR EDITOR AND PHYSICIAN/PROVIDER WITH ANY CHANGE IN CONDITION. [code = SKILLED NURSE WILL MAINTAIN SITUATIONAL AWARENESS FOR SAFETY AND WILL NOTIFY CLINICAL SENIOR EDITOR AND PHYSICIAN/PROVIDER WITH ANY CHANGE IN [...] CARE WILL BE ESTABLISHED THAT MEETS PATIENT'S CORRECTION NEEDS AND INCLUDES PATIENT GOAL FOR HOME [...] CLEAN AND NEATLY DRESSED IN KITCHEN WITH NOCTURNIST PRESENT D/T MOUSE PROBLEM. HER HOME IS [...] WITH HER MED PP PER HER MED CHILDCARE PROVIDER AND DENIES ANY ADVERSE EFFECTS.</paragraph> Encounters Start Date/Time End Date/Time Encounter Type Admission Type Attending Clinicians Care Facility Care Department Encounter ID Discharge Date Discharge Status Discharge Condition Discharge Reason Percent Goals Met 2025-01-19 00:00:00 2025-03-19 00:00:00 Outpatient RECERTIFIC ATSNEHAL VELA [facility] [id number] 76.00
--- OUTSIDE RECORDS SUMMARY | 2025-03-18 19:00 | XMS_ITS | Clinical Summary ---
Author Organization Unknown Care Team Providers Care Hot Car Charger Name Role Phone YAIMA RASMUSSEN, KAVITA BEST Unavailable Unamirella SPEARS RN, SNEHAL Unavailable Unavailable Payers Payer Name Policy Type Policy Number Effective Date Expira tion Date [employer] MEDICARE ADVANTAGE FFS [id number] MEDICARE - [place] PDGM [id number] Problems Condition Name Condition Details Condition Category [...] 06-25 00:00: 00 12-31 23:59 :00 No [id number] 2 puff DIRECTED 2 puff DIRECTED (route: inhalation ) Med Classific ation: Respirato ry Therapy Agents bupropion HCl XL 300 mg 24 hr tablet, extended release 06-25 00:00: 00 12-31 23:59 :00 No [id number] 1 tablet DAILY 1 tablet DAILY (route: oral) Med Classific ation: Central Nervous System Agents carbidopa 25 mg-levodopa 100 mg tablet 417 00:00: 00 12-31 23:59 :00 No [id number] 1.5 tablet 4 TIMES DAILY 1.5 tablet 4 TIMES DAILY (route: oral) Med Classific ation: Central Nervous System Agents famotidine 40 mg tablet 417 00:00: 00 09-01 23:59 :00 No [id number] 1 tablet DAILY 1 tablet DAILY (route: oral) Med Classific ation: Gastroint estinal Therapy Agents paroxetine 40 mg tablet 17 00:00: 00 12-31 23:59 :00 No [id number] 1 tablet DAILY 1 tablet DAILY (route: oral) Med Classific ation: Central Nervous System Agents trazodone 50 mg tablet 06-25 00:00: 00 09-01 23:59 :00 No [id number] Per instruc tions BEDTIME Per instructio ns BEDTIME (route: oral) Med Classific ation: Central Nervous System Agents gabapentin 100 mg capsule -24 00:00: 00 09-01 23:59 :00 No [id number] pain Per instruc tions BEDTIME Per instructio ns BEDTIME (route: oral) Med Classific ation: Central Nervous System Agents omeprazole 40 mg capsule,del ayed release -24 00:00: 00 05-20 23:59 :00 No [id number] 1 capsule DAILY 1 capsule DAILY (route: oral) Med Classific ation: Gastroint estinal Therapy Agents gabapentin 100 mg capsule 2023-03 0- 00:00: 00 09-01 23:59 :00 No [id number] Per instruc tions 2 TIMES DAILY Per instructio ns 2 TIMES DAILY (route: oral) Med Classific ation: Central Nervous System Agents famotidine 40 mg tablet 3-16 00:00: 00 12-31 23:59 :00 No [id number] 1 tablet EVERY AM 1 tablet EVERY AM (route: oral) Med Classific ation: Gastroint estinal Therapy Agents Tylenol Arthritis Pain 650 mg tablet,exte nded release 3-21 00:00: 00 12-31 23:59 :00 No [id number] 1 tablet EVERY 8 HOURS 1 tablet EVERY 8 HOURS (route: oral) Med Classific ation: Analgesic , Anti-infl ammatory or Antipyret ic cyclobenzap rine 10 mg tablet 08-05 00:00: 00 09-01 23:59 :00 No [id number] 1 tablet BEDTIME 1 tablet BEDTIME (route: oral) Med Classific ation: Locomotor System meloxicam 15 mg tablet 08-05 00:00: 00 09-01 23:59 :00 No [id number] 1 tablet DAILY 1 tablet DAILY (route: oral) Med Classific ation: Analgesic , Anti-infl ammatory or Antipyret ic cyclobenzap rine 10 mg tablet 09-01 00:00: 00 12-31 23:59 :00 No [id number] 1 tablet BEDTIME 1 tablet BEDTIME (route: oral) Med Classific ation: Locomotor System meloxicam 15 mg tablet 09-01 00:00: 00 12-31 23:59 :00 No [id number] 1 tablet EVERY AM 1 tablet EVERY AM (route: oral) Med Classific ation: Analgesic , Anti-infl ammatory or Antipyret ic trazodone 50 mg tablet 09-01 00:00: 00 12-31 23:59 :00 No [id number] Per instruc tions BEDTIME Per instructio ns BEDTIME (route: oral) Med Classific ation: Central Nervous System Agents erythromyci n 5 mg/gram (0.5 %) eye ointment 2024-03 00:00: 00 Yes [id number] Per instruc tions 4 TIMES DAILY Per instructio ns 4 TIMES DAILY (route: ophthalmic (eye)) Med Classific ation: Ophthalmi c Agents albuterol sulfate HFA 90 mcg/actuati on aerosol inhaler 2024-03 00:00: 00 Yes [id number] 2 puff EVERY 6 HOURS 2 puff EVERY 6 HOURS (route: inhalation ) Med Classific ation: Respirato ry Therapy Agents bupropion HCl XL 300 mg 24 hr tablet, extended release 2024-03 00:00: 00 Yes [id number] 1 tablet EVERY AM 1 tablet EVERY AM (route: oral) Med Classific ation: Central Nervous System Agents carbidopa 25 mg-levodopa 100 mg disintegrat ing tablet 2024-03 00:00: 00 Yes [id number] 1.5 tablet NOON 1.5 tablet NOON (route: oral) Med Classific ation: Central Nervous System Agents carbidopa 25 mg-levodopa 100 mg tablet 2024-03 00:00: 00 Yes [id number] 1.5 tablet EVERY AM 1.5 tablet EVERY AM (route: oral) Med Classific ation: Central Nervous System Agents carbidopa 25 mg-levodopa 100 mg tablet 2024-03 00:00: 00 Yes [id number] 1.5 tablet EVERY PM 1.5 tablet EVERY PM (route: oral) Med Classific ation: Central Nervous System Agents carbidopa 25 mg-levodopa 100 mg tablet 2024-03 00:00: 00 Yes [id number] 1.5 tablet BEDTIME 1.5 tablet BEDTIME (route: oral) Med Classific ation: Central Nervous System Agents cyclobenzap rine 10 mg tablet 2024-03 00:00: 00 Yes [id number] 1 tablet BEDTIME 1 tablet BEDTIME (route: oral) Med Classific ation: Locomotor System famotidine 40 mg tablet 2024-03 00:00: 00 Yes [id number] 1 tablet EVERY AM 1 tablet EVERY AM (route: oral) Med Classific ation: Gastroint estinal Therapy Agents meloxicam 15 mg tablet 2024-03 00:00: 00 Yes [id number] 1 tablet EVERY AM 1 tablet EVERY AM (route: oral) Med Classific ation: Analgesic , Anti-infl ammatory or Antipyret ic paroxetine 40 mg tablet 2024-03 00:00: 00 Yes [id number] 1 tablet EVERY AM 1 tablet EVERY AM (route: oral) Med Classific ation: Central Nervous System Agents trazodone 50 mg tablet 2024-03 00:00: 00 Yes [id number] 1 tablet BEDTIME 1 tablet BEDTIME (route: oral) Med Classific ation: Central Nervous System Agents Tylenol Arthritis Pain 650 mg tablet,exte nded release 2024-03 0-23 00:00: 00 Yes [id number] 1 tablet EVERY 8 HOURS 1 tablet EVERY 8 HOURS (route: oral) Med Classific ation: Analgesic , Anti-infl ammatory or Antipyret ic Farxiga 5 mg tablet 2024-03 1-03 00:00: 00 Yes [id number] 1 tablet EVERY AM 1 tablet EVERY [...] AWARENESS FOR SAFETY AND WILL NOTIFY CLINICAL STACKER DRIVER AND PHYSICIAN/PROVIDER WITH ANY CHANGE IN CONDITION. [code = SKILLED NURSE WILL MAINTAIN SITUATIONAL AWARENESS FOR SAFETY AND WILL NOTIFY CLINICAL STACKER DRIVER AND PHYSICIAN/PROVIDER WITH ANY CHANGE IN CONDITION.] [...] CLEAN AND NEATLY DRESSED IN KITCHEN WITH INSTALLMENT DEALER PRESENT D/T MOUSE PROBLEM. 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
--- OUTSIDE RECORDS SUMMARY | 2025-03-18 19:00 | XMS_ITS | Clinical Summary ---
Author Organization Unknown Care Team Providers Care School Crossing Guard Name Role Phone YAIMA RASMUSSEN, KAVITA BEST Unavailable Unamirella SPEARS RN, SNEHAL Unavailable Unavailable Payers Payer Name Policy Type Policy Number Effective Date Expira tion Date [employer] MEDICARE ADVANTAGE FFS [id number] MEDICARE - [place] - PDGM [id number] Problems Condition Name Condition Details Condition Category [...] 06-25 00:00: 00 12-31 23:59 :00 No [id number] 2 puff DIRECTED 2 puff DIRECTED (route: inhalation ) Med Classific ation: Respirato ry Therapy Agents bupropion HCl XL 300 mg 24 hr tablet, extended release 06-25 00:00: 00 12-31 23:59 :00 No [id number] 1 tablet DAILY 1 tablet DAILY (route: oral) Med Classific ation: Central Nervous System Agents carbidopa 25 mg-levodopa 100 mg tablet 417 00:00: 00 12-31 23:59 :00 No [id number] 1.5 tablet 4 TIMES DAILY 1.5 tablet 4 TIMES DAILY (route: oral) Med Classific ation: Central Nervous System Agents famotidine 40 mg tablet 417 00:00: 00 09-01 23:59 :00 No [id number] 1 tablet DAILY 1 tablet DAILY (route: oral) Med Classific ation: Gastroint estinal Therapy Agents paroxetine 40 mg tablet 17 00:00: 00 12-31 23:59 :00 No [id number] 1 tablet DAILY 1 tablet DAILY (route: oral) Med Classific ation: Central Nervous System Agents trazodone 50 mg tablet 06-25 00:00: 00 09-01 23:59 :00 No [id number] Per instruc tions BEDTIME Per instructio ns BEDTIME (route: oral) Med Classific ation: Central Nervous System Agents gabapentin 100 mg capsule -24 00:00: 00 09-01 23:59 :00 No [id number] pain Per instruc tions BEDTIME Per instructio ns BEDTIME (route: oral) Med Classific ation: Central Nervous System Agents omeprazole 40 mg capsule,del ayed release -24 00:00: 00 05-20 23:59 :00 No [id number] 1 capsule DAILY 1 capsule DAILY (route: oral) Med Classific ation: Gastroint estinal Therapy Agents gabapentin 100 mg capsule 2023-03 0- 00:00: 00 09-01 23:59 :00 No [id number] Per instruc tions 2 TIMES DAILY Per instructio ns 2 TIMES DAILY (route: oral) Med Classific ation: Central Nervous System Agents famotidine 40 mg tablet 3-16 00:00: 00 12-31 23:59 :00 No [id number] 1 tablet EVERY AM 1 tablet EVERY AM (route: oral) Med Classific ation: Gastroint estinal Therapy Agents Tylenol Arthritis Pain 650 mg tablet,exte nded release 3-21 00:00: 00 12-31 23:59 :00 No [id number] 1 tablet EVERY 8 HOURS 1 tablet EVERY 8 HOURS (route: oral) Med Classific ation: Analgesic , Anti-infl ammatory or Antipyret ic cyclobenzap rine 10 mg tablet 08-05 00:00: 00 09-01 23:59 :00 No [id number] 1 tablet BEDTIME 1 tablet BEDTIME (route: oral) Med Classific ation: Locomotor System meloxicam 15 mg tablet 08-05 00:00: 00 09-01 23:59 :00 No [id number] 1 tablet DAILY 1 tablet DAILY (route: oral) Med Classific ation: Analgesic , Anti-infl ammatory or Antipyret ic cyclobenzap rine 10 mg tablet 09-01 00:00: 00 12-31 23:59 :00 No [id number] 1 tablet BEDTIME 1 tablet BEDTIME (route: oral) Med Classific ation: Locomotor System meloxicam 15 mg tablet 09-01 00:00: 00 12-31 23:59 :00 No [id number] 1 tablet EVERY AM 1 tablet EVERY AM (route: oral) Med Classific ation: Analgesic , Anti-infl ammatory or Antipyret ic trazodone 50 mg tablet 09-01 00:00: 00 12-31 23:59 :00 No [id number] Per instruc tions BEDTIME Per instructio ns BEDTIME (route: oral) Med Classific ation: Central Nervous System Agents erythromyci n 5 mg/gram (0.5 %) eye ointment 2024-03 00:00: 00 Yes [id number] Per instruc tions 4 TIMES DAILY Per instructio ns 4 TIMES DAILY (route: ophthalmic (eye)) Med Classific ation: Ophthalmi c Agents albuterol sulfate HFA 90 mcg/actuati on aerosol inhaler 2024-03 00:00: 00 Yes [id number] 2 puff EVERY 6 HOURS 2 puff EVERY 6 HOURS (route: inhalation ) Med Classific ation: Respirato ry Therapy Agents bupropion HCl XL 300 mg 24 hr tablet, extended release 2024-03 00:00: 00 Yes [id number] 1 tablet EVERY AM 1 tablet EVERY AM (route: oral) Med Classific ation: Central Nervous System Agents carbidopa 25 mg-levodopa 100 mg disintegrat ing tablet 2024-03 00:00: 00 Yes [id number] 1.5 tablet NOON 1.5 tablet NOON (route: oral) Med Classific ation: Central Nervous System Agents carbidopa 25 mg-levodopa 100 mg tablet 2024-03 00:00: 00 Yes [id number] 1.5 tablet EVERY AM 1.5 tablet EVERY AM (route: oral) Med Classific ation: Central Nervous System Agents carbidopa 25 mg-levodopa 100 mg tablet 2024-03 00:00: 00 Yes [id number] 1.5 tablet EVERY PM 1.5 tablet EVERY PM (route: oral) Med Classific ation: Central Nervous System Agents carbidopa 25 mg-levodopa 100 mg tablet 2024-03 00:00: 00 Yes [id number] 1.5 tablet BEDTIME 1.5 tablet BEDTIME (route: oral) Med Classific ation: Central Nervous System Agents cyclobenzap rine 10 mg tablet 2024-03 00:00: 00 Yes [id number] 1 tablet BEDTIME 1 tablet BEDTIME (route: oral) Med Classific ation: Locomotor System famotidine 40 mg tablet 2024-03 00:00: 00 Yes [id number] 1 tablet EVERY AM 1 tablet EVERY AM (route: oral) Med Classific ation: Gastroint estinal Therapy Agents meloxicam 15 mg tablet 2024-03 00:00: 00 Yes [id number] 1 tablet EVERY AM 1 tablet EVERY AM (route: oral) Med Classific ation: Analgesic , Anti-infl ammatory or Antipyret ic paroxetine 40 mg tablet 2024-03 00:00: 00 Yes [id number] 1 tablet EVERY AM 1 tablet EVERY AM (route: oral) Med Classific ation: Central Nervous System Agents trazodone 50 mg tablet 2024-03 00:00: 00 Yes [id number] 1 tablet BEDTIME 1 tablet BEDTIME (route: oral) Med Classific ation: Central Nervous System Agents Tylenol Arthritis Pain 650 mg tablet,exte nded release 2024-03 0-23 00:00: 00 Yes [id number] 1 tablet EVERY 8 HOURS 1 tablet EVERY 8 HOURS (route: oral) Med Classific ation: Analgesic , Anti-infl ammatory or Antipyret ic Farxiga 5 mg tablet 2024-03 1-03 00:00: 00 Yes [id number] 1 tablet EVERY AM 1 tablet EVERY [...] AWARENESS FOR SAFETY AND WILL NOTIFY CLINICAL ANIMATION ARTIST AND PHYSICIAN/PROVIDER WITH ANY CHANGE IN CONDITION. [code = SKILLED NURSE WILL MAINTAIN SITUATIONAL AWARENESS FOR SAFETY AND WILL NOTIFY CLINICAL ANIMATION ARTIST AND PHYSICIAN/PROVIDER WITH ANY CHANGE IN CONDITION.] [...] CLEAN AND NEATLY DRESSED IN KITCHEN WITH PUBLIC AFFAIRS SPECIALIST PRESENT D/T MOUSE PROBLEM. 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
--- OUTSIDE RECORDS SUMMARY | 2025-03-18 19:00 | XMS_ITS | Clinical Summary ---
Author Organization Unknown Care Team Providers Care Commercial Technician Name Role Phone YAIMA RASMUSSEN, KAVITA EBST Unavailable Unamirella SPEARS RN, SNEHAL Unavailable Unavailable Payers Payer Name Policy Type Policy Number Effective Date Expira tion Date [employer] MEDICARE ADVANTAGE FFS [id number] MEDICARE - [place] - PDGM [id number] Problems Condition Name Condition Details Condition Category [...] 06-25 00:00: 00 12-31 23:59 :00 No [id number] 2 puff DIRECTED 2 puff DIRECTED (route: inhalation ) Med Classific ation: Respirato ry Therapy Agents bupropion HCl XL 300 mg 24 hr tablet, extended release 06-25 00:00: 00 12-31 23:59 :00 No [id number] 1 tablet DAILY 1 tablet DAILY (route: oral) Med Classific ation: Central Nervous System Agents carbidopa 25 mg-levodopa 100 mg tablet 417 00:00: 00 12-31 23:59 :00 No [id number] 1.5 tablet 4 TIMES DAILY 1.5 tablet 4 TIMES DAILY (route: oral) Med Classific ation: Central Nervous System Agents famotidine 40 mg tablet 417 00:00: 00 09-01 23:59 :00 No [id number] 1 tablet DAILY 1 tablet DAILY (route: oral) Med Classific ation: Gastroint estinal Therapy Agents paroxetine 40 mg tablet 17 00:00: 00 12-31 23:59 :00 No [id number] 1 tablet DAILY 1 tablet DAILY (route: oral) Med Classific ation: Central Nervous System Agents trazodone 50 mg tablet 06-25 00:00: 00 09-01 23:59 :00 No [id number] Per instruc tions BEDTIME Per instructio ns BEDTIME (route: oral) Med Classific ation: Central Nervous System Agents gabapentin 100 mg capsule -24 00:00: 00 09-01 23:59 :00 No [id number] pain Per instruc tions BEDTIME Per instructio ns BEDTIME (route: oral) Med Classific ation: Central Nervous System Agents omeprazole 40 mg capsule,del ayed release -24 00:00: 00 05-20 23:59 :00 No [id number] 1 capsule DAILY 1 capsule DAILY (route: oral) Med Classific ation: Gastroint estinal Therapy Agents gabapentin 100 mg capsule 2023-03 0- 00:00: 00 09-01 23:59 :00 No [id number] Per instruc tions 2 TIMES DAILY Per instructio ns 2 TIMES DAILY (route: oral) Med Classific ation: Central Nervous System Agents famotidine 40 mg tablet 3-16 00:00: 00 12-31 23:59 :00 No [id number] 1 tablet EVERY AM 1 tablet EVERY AM (route: oral) Med Classific ation: Gastroint estinal Therapy Agents Tylenol Arthritis Pain 650 mg tablet,exte nded release 3-21 00:00: 00 12-31 23:59 :00 No [id number] 1 tablet EVERY 8 HOURS 1 tablet EVERY 8 HOURS (route: oral) Med Classific ation: Analgesic , Anti-infl ammatory or Antipyret ic cyclobenzap rine 10 mg tablet 08-05 00:00: 00 09-01 23:59 :00 No [id number] 1 tablet BEDTIME 1 tablet BEDTIME (route: oral) Med Classific ation: Locomotor System meloxicam 15 mg tablet 08-05 00:00: 00 09-01 23:59 :00 No [id number] 1 tablet DAILY 1 tablet DAILY (route: oral) Med Classific ation: Analgesic , Anti-infl ammatory or Antipyret ic cyclobenzap rine 10 mg tablet 09-01 00:00: 00 12-31 23:59 :00 No [id number] 1 tablet BEDTIME 1 tablet BEDTIME (route: oral) Med Classific ation: Locomotor System meloxicam 15 mg tablet 09-01 00:00: 00 12-31 23:59 :00 No [id number] 1 tablet EVERY AM 1 tablet EVERY AM (route: oral) Med Classific ation: Analgesic , Anti-infl ammatory or Antipyret ic trazodone 50 mg tablet 09-01 00:00: 00 12-31 23:59 :00 No [id number] Per instruc tions BEDTIME Per instructio ns BEDTIME (route: oral) Med Classific ation: Central Nervous System Agents erythromyci n 5 mg/gram (0.5 %) eye ointment 2024-03 00:00: 00 Yes [id number] Per instruc tions 4 TIMES DAILY Per instructio ns 4 TIMES DAILY (route: ophthalmic (eye)) Med Classific ation: Ophthalmi c Agents albuterol sulfate HFA 90 mcg/actuati on aerosol inhaler 2024-03 00:00: 00 Yes [id number] 2 puff EVERY 6 HOURS 2 puff EVERY 6 HOURS (route: inhalation ) Med Classific ation: Respirato ry Therapy Agents bupropion HCl XL 300 mg 24 hr tablet, extended release 2024-03 00:00: 00 Yes [id number] 1 tablet EVERY AM 1 tablet EVERY AM (route: oral) Med Classific ation: Central Nervous System Agents carbidopa 25 mg-levodopa 100 mg disintegrat ing tablet 2024-03 00:00: 00 Yes [id number] 1.5 tablet NOON 1.5 tablet NOON (route: oral) Med Classific ation: Central Nervous System Agents carbidopa 25 mg-levodopa 100 mg tablet 2024-03 00:00: 00 Yes [id number] 1.5 tablet EVERY AM 1.5 tablet EVERY AM (route: oral) Med Classific ation: Central Nervous System Agents carbidopa 25 mg-levodopa 100 mg tablet 2024-03 00:00: 00 Yes [id number] 1.5 tablet EVERY PM 1.5 tablet EVERY PM (route: oral) Med Classific ation: Central Nervous System Agents carbidopa 25 mg-levodopa 100 mg tablet 2024-03 00:00: 00 Yes [id number] 1.5 tablet BEDTIME 1.5 tablet BEDTIME (route: oral) Med Classific ation: Central Nervous System Agents cyclobenzap rine 10 mg tablet 2024-03 00:00: 00 Yes [id number] 1 tablet BEDTIME 1 tablet BEDTIME (route: oral) Med Classific ation: Locomotor System famotidine 40 mg tablet 2024-03 00:00: 00 Yes [id number] 1 tablet EVERY AM 1 tablet EVERY AM (route: oral) Med Classific ation: Gastroint estinal Therapy Agents meloxicam 15 mg tablet 2024-03 00:00: 00 Yes [id number] 1 tablet EVERY AM 1 tablet EVERY AM (route: oral) Med Classific ation: Analgesic , Anti-infl ammatory or Antipyret ic paroxetine 40 mg tablet 2024-03 00:00: 00 Yes [id number] 1 tablet EVERY AM 1 tablet EVERY AM (route: oral) Med Classific ation: Central Nervous System Agents trazodone 50 mg tablet 2024-03 00:00: 00 Yes [id number] 1 tablet BEDTIME 1 tablet BEDTIME (route: oral) Med Classific ation: Central Nervous System Agents Tylenol Arthritis Pain 650 mg tablet,exte nded release 2024-03 0-23 00:00: 00 Yes [id number] 1 tablet EVERY 8 HOURS 1 tablet EVERY 8 HOURS (route: oral) Med Classific ation: Analgesic , Anti-infl ammatory or Antipyret ic Farxiga 5 mg tablet 2024-03 1-03 00:00: 00 Yes [id number] 1 tablet EVERY AM 1 tablet EVERY [...] AWARENESS FOR SAFETY AND WILL NOTIFY CLINICAL SEED PRODUCTION FIELD SUPERVISOR AND PHYSICIAN/PROVIDER WITH ANY CHANGE IN CONDITION. [code = SKILLED NURSE WILL MAINTAIN SITUATIONAL AWARENESS FOR SAFETY AND WILL NOTIFY CLINICAL SEED PRODUCTION FIELD SUPERVISOR AND PHYSICIAN/PROVIDER WITH ANY CHANGE IN [...] CARE WILL BE ESTABLISHED THAT MEETS PATIENT'S FDC NEEDS AND INCLUDES PATIENT GOAL FOR HOME [...] CLEAN AND NEATLY DRESSED IN KITCHEN WITH SUPERVISOR PACKING ROOM PRESENT D/T MOUSE PROBLEM. HER HOME IS [...] WITH HER MED PP PER HER MED TREASURER SAVINGS BANK AND DENIES ANY ADVERSE EFFECTS.</paragraph> Encounters Start Date/Time End Date/Time Encounter Type Admission Type Attending Clinicians Care Facility Care Department Encounter ID Discharge Date Discharge Status Discharge Condition Discharge Reason Percent Goals Met 2025-01-19 00:00:00 2025-03-19 00:00:00 Outpatient RECERTIFIC ATSNEHAL VELA [facility] [id number] 76.00
--- OUTSIDE RECORDS SUMMARY | 2025-03-18 19:00 | XMS_ITS | Clinical Summary ---
Author Organization Unknown Care Team Providers Care Piling Setter Name Role Phone YAIMA RASMUSSEN, KAVITA BEST Unavailable Unamirella SPEARS RN, SNEHAL Unavailable Unavailable Payers Payer Name Policy Type Policy Number Effective Date Expira tion Date [employer] MEDICARE ADVANTAGE FFS [id number] MEDICARE - [place] PDGM [id number] Problems Condition Name Condition Details Condition Category [...] 06-25 00:00: 00 12-31 23:59 :00 No [id number] 2 puff DIRECTED 2 puff DIRECTED (route: inhalation ) Med Classific ation: Respirato ry Therapy Agents bupropion HCl XL 300 mg 24 hr tablet, extended release 06-25 00:00: 00 12-31 23:59 :00 No [id number] 1 tablet DAILY 1 tablet DAILY (route: oral) Med Classific ation: Central Nervous System Agents carbidopa 25 mg-levodopa 100 mg tablet 417 00:00: 00 12-31 23:59 :00 No [id number] 1.5 tablet 4 TIMES DAILY 1.5 tablet 4 TIMES DAILY (route: oral) Med Classific ation: Central Nervous System Agents famotidine 40 mg tablet 417 00:00: 00 09-01 23:59 :00 No [id number] 1 tablet DAILY 1 tablet DAILY (route: oral) Med Classific ation: Gastroint estinal Therapy Agents paroxetine 40 mg tablet 17 00:00: 00 12-31 23:59 :00 No [id number] 1 tablet DAILY 1 tablet DAILY (route: oral) Med Classific ation: Central Nervous System Agents trazodone 50 mg tablet 06-25 00:00: 00 09-01 23:59 :00 No [id number] Per instruc tions BEDTIME Per instructio ns BEDTIME (route: oral) Med Classific ation: Central Nervous System Agents gabapentin 100 mg capsule -24 00:00: 00 09-01 23:59 :00 No [id number] pain Per instruc tions BEDTIME Per instructio ns BEDTIME (route: oral) Med Classific ation: Central Nervous System Agents omeprazole 40 mg capsule,del ayed release -24 00:00: 00 05-20 23:59 :00 No [id number] 1 capsule DAILY 1 capsule DAILY (route: oral) Med Classific ation: Gastroint estinal Therapy Agents gabapentin 100 mg capsule 2023-03 0- 00:00: 00 09-01 23:59 :00 No [id number] Per instruc tions 2 TIMES DAILY Per instructio ns 2 TIMES DAILY (route: oral) Med Classific ation: Central Nervous System Agents famotidine 40 mg tablet 3-16 00:00: 00 12-31 23:59 :00 No [id number] 1 tablet EVERY AM 1 tablet EVERY AM (route: oral) Med Classific ation: Gastroint estinal Therapy Agents Tylenol Arthritis Pain 650 mg tablet,exte nded release 3-21 00:00: 00 12-31 23:59 :00 No [id number] 1 tablet EVERY 8 HOURS 1 tablet EVERY 8 HOURS (route: oral) Med Classific ation: Analgesic , Anti-infl ammatory or Antipyret ic cyclobenzap rine 10 mg tablet 08-05 00:00: 00 09-01 23:59 :00 No [id number] 1 tablet BEDTIME 1 tablet BEDTIME (route: oral) Med Classific ation: Locomotor System meloxicam 15 mg tablet 08-05 00:00: 00 09-01 23:59 :00 No [id number] 1 tablet DAILY 1 tablet DAILY (route: oral) Med Classific ation: Analgesic , Anti-infl ammatory or Antipyret ic cyclobenzap rine 10 mg tablet 09-01 00:00: 00 12-31 23:59 :00 No [id number] 1 tablet BEDTIME 1 tablet BEDTIME (route: oral) Med Classific ation: Locomotor System meloxicam 15 mg tablet 09-01 00:00: 00 12-31 23:59 :00 No [id number] 1 tablet EVERY AM 1 tablet EVERY AM (route: oral) Med Classific ation: Analgesic , Anti-infl ammatory or Antipyret ic trazodone 50 mg tablet 09-01 00:00: 00 12-31 23:59 :00 No [id number] Per instruc tions BEDTIME Per instructio ns BEDTIME (route: oral) Med Classific ation: Central Nervous System Agents erythromyci n 5 mg/gram (0.5 %) eye ointment 2024-03 00:00: 00 Yes [id number] Per instruc tions 4 TIMES DAILY Per instructio ns 4 TIMES DAILY (route: ophthalmic (eye)) Med Classific ation: Ophthalmi c Agents albuterol sulfate HFA 90 mcg/actuati on aerosol inhaler 2024-03 00:00: 00 Yes [id number] 2 puff EVERY 6 HOURS 2 puff EVERY 6 HOURS (route: inhalation ) Med Classific ation: Respirato ry Therapy Agents bupropion HCl XL 300 mg 24 hr tablet, extended release 2024-03 00:00: 00 Yes [id number] 1 tablet EVERY AM 1 tablet EVERY AM (route: oral) Med Classific ation: Central Nervous System Agents carbidopa 25 mg-levodopa 100 mg disintegrat ing tablet 2024-03 00:00: 00 Yes [id number] 1.5 tablet NOON 1.5 tablet NOON (route: oral) Med Classific ation: Central Nervous System Agents carbidopa 25 mg-levodopa 100 mg tablet 2024-03 00:00: 00 Yes [id number] 1.5 tablet EVERY AM 1.5 tablet EVERY AM (route: oral) Med Classific ation: Central Nervous System Agents carbidopa 25 mg-levodopa 100 mg tablet 2024-03 00:00: 00 Yes [id number] 1.5 tablet EVERY PM 1.5 tablet EVERY PM (route: oral) Med Classific ation: Central Nervous System Agents carbidopa 25 mg-levodopa 100 mg tablet 2024-03 00:00: 00 Yes [id number] 1.5 tablet BEDTIME 1.5 tablet BEDTIME (route: oral) Med Classific ation: Central Nervous System Agents cyclobenzap rine 10 mg tablet 2024-03 00:00: 00 Yes [id number] 1 tablet BEDTIME 1 tablet BEDTIME (route: oral) Med Classific ation: Locomotor System famotidine 40 mg tablet 2024-03 00:00: 00 Yes [id number] 1 tablet EVERY AM 1 tablet EVERY AM (route: oral) Med Classific ation: Gastroint estinal Therapy Agents meloxicam 15 mg tablet 2024-03 00:00: 00 Yes [id number] 1 tablet EVERY AM 1 tablet EVERY AM (route: oral) Med Classific ation: Analgesic , Anti-infl ammatory or Antipyret ic paroxetine 40 mg tablet 2024-03 00:00: 00 Yes [id number] 1 tablet EVERY AM 1 tablet EVERY AM (route: oral) Med Classific ation: Central Nervous System Agents trazodone 50 mg tablet 2024-03 00:00: 00 Yes [id number] 1 tablet BEDTIME 1 tablet BEDTIME (route: oral) Med Classific ation: Central Nervous System Agents Tylenol Arthritis Pain 650 mg tablet,exte nded release 2024-03 0-23 00:00: 00 Yes [id number] 1 tablet EVERY 8 HOURS 1 tablet EVERY 8 HOURS (route: oral) Med Classific ation: Analgesic , Anti-infl ammatory or Antipyret ic Farxiga 5 mg tablet 2024-03 1-03 00:00: 00 Yes [id number] 1 tablet EVERY AM 1 tablet EVERY [...] AWARENESS FOR SAFETY AND WILL NOTIFY CLINICAL PODIATRIC FOOT AND ANKLE SPECIALIST AND PHYSICIAN/PROVIDER WITH ANY CHANGE IN CONDITION. [code = SKILLED NURSE WILL MAINTAIN SITUATIONAL AWARENESS FOR SAFETY AND WILL NOTIFY CLINICAL PODIATRIC FOOT AND ANKLE SPECIALIST AND PHYSICIAN/PROVIDER WITH ANY CHANGE IN [...] CLEAN AND NEATLY DRESSED IN KITCHEN WITH LEACH CELL OPERATOR PRESENT D/T MOUSE PROBLEM. HER HOME [...] WITH HER MED PP PER HER MED IRON PILER AND DENIES ANY ADVERSE EFFECTS.</paragraph> Encounters Start Date/Time End Date/Time Encounter Type Admission Type Attending Clinicians Care Facility Care Department Encounter ID Discharge Date Discharge Status Discharge Condition Discharge Reason Percent Goals Met 2025-01-19 00:00:00 2025-03-19 00:00:00 Outpatient RECERTIFIC ATSNEHAL VELA [facility] [id number] 76.00
--- OUTSIDE RECORDS SUMMARY | 2025-03-18 19:00 | XMS_ITS | Clinical Summary ---
Author Organization Unknown Care Team Providers Care Reel Cart Operator Name Role Phone YAIMA RASMUSSEN, KAVITA BEST Unavailable Unamirella SPEARS RN, SNEHAL Unavailable Unavailable Payers Payer Name Policy Type Policy Number Effective Date Expira tion Date [employer] MEDICARE ADVANTAGE FFS [id number] MEDICARE - [place] PDGM [id number] Problems Condition Name Condition Details Condition Category [...] 06-25 00:00: 00 12-31 23:59 :00 No [id number] 2 puff DIRECTED 2 puff DIRECTED (route: inhalation ) Med Classific ation: Respirato ry Therapy Agents bupropion HCl XL 300 mg 24 hr tablet, extended release 06-25 00:00: 00 12-31 23:59 :00 No [id number] 1 tablet DAILY 1 tablet DAILY (route: oral) Med Classific ation: Central Nervous System Agents carbidopa 25 mg-levodopa 100 mg tablet 417 00:00: 00 12-31 23:59 :00 No [id number] 1.5 tablet 4 TIMES DAILY 1.5 tablet 4 TIMES DAILY (route: oral) Med Classific ation: Central Nervous System Agents famotidine 40 mg tablet 417 00:00: 00 09-01 23:59 :00 No [id number] 1 tablet DAILY 1 tablet DAILY (route: oral) Med Classific ation: Gastroint estinal Therapy Agents paroxetine 40 mg tablet 17 00:00: 00 12-31 23:59 :00 No [id number] 1 tablet DAILY 1 tablet DAILY (route: oral) Med Classific ation: Central Nervous System Agents trazodone 50 mg tablet 06-25 00:00: 00 09-01 23:59 :00 No [id number] Per instruc tions BEDTIME Per instructio ns BEDTIME (route: oral) Med Classific ation: Central Nervous System Agents gabapentin 100 mg capsule -24 00:00: 00 09-01 23:59 :00 No [id number] pain Per instruc tions BEDTIME Per instructio ns BEDTIME (route: oral) Med Classific ation: Central Nervous System Agents omeprazole 40 mg capsule,del ayed release -24 00:00: 00 05-20 23:59 :00 No [id number] 1 capsule DAILY 1 capsule DAILY (route: oral) Med Classific ation: Gastroint estinal Therapy Agents gabapentin 100 mg capsule 2023-03 0- 00:00: 00 09-01 23:59 :00 No [id number] Per instruc tions 2 TIMES DAILY Per instructio ns 2 TIMES DAILY (route: oral) Med Classific ation: Central Nervous System Agents famotidine 40 mg tablet 3-16 00:00: 00 12-31 23:59 :00 No [id number] 1 tablet EVERY AM 1 tablet EVERY AM (route: oral) Med Classific ation: Gastroint estinal Therapy Agents Tylenol Arthritis Pain 650 mg tablet,exte nded release 3-21 00:00: 00 12-31 23:59 :00 No [id number] 1 tablet EVERY 8 HOURS 1 tablet EVERY 8 HOURS (route: oral) Med Classific ation: Analgesic , Anti-infl ammatory or Antipyret ic cyclobenzap rine 10 mg tablet 08-05 00:00: 00 09-01 23:59 :00 No [id number] 1 tablet BEDTIME 1 tablet BEDTIME (route: oral) Med Classific ation: Locomotor System meloxicam 15 mg tablet 08-05 00:00: 00 09-01 23:59 :00 No [id number] 1 tablet DAILY 1 tablet DAILY (route: oral) Med Classific ation: Analgesic , Anti-infl ammatory or Antipyret ic cyclobenzap rine 10 mg tablet 09-01 00:00: 00 12-31 23:59 :00 No [id number] 1 tablet BEDTIME 1 tablet BEDTIME (route: oral) Med Classific ation: Locomotor System meloxicam 15 mg tablet 09-01 00:00: 00 12-31 23:59 :00 No [id number] 1 tablet EVERY AM 1 tablet EVERY AM (route: oral) Med Classific ation: Analgesic , Anti-infl ammatory or Antipyret ic trazodone 50 mg tablet 09-01 00:00: 00 12-31 23:59 :00 No [id number] Per instruc tions BEDTIME Per instructio ns BEDTIME (route: oral) Med Classific ation: Central Nervous System Agents erythromyci n 5 mg/gram (0.5 %) eye ointment 2024-03 00:00: 00 Yes [id number] Per instruc tions 4 TIMES DAILY Per instructio ns 4 TIMES DAILY (route: ophthalmic (eye)) Med Classific ation: Ophthalmi c Agents albuterol sulfate HFA 90 mcg/actuati on aerosol inhaler 2024-03 00:00: 00 Yes [id number] 2 puff EVERY 6 HOURS 2 puff EVERY 6 HOURS (route: inhalation ) Med Classific ation: Respirato ry Therapy Agents bupropion HCl XL 300 mg 24 hr tablet, extended release 2024-03 00:00: 00 Yes [id number] 1 tablet EVERY AM 1 tablet EVERY AM (route: oral) Med Classific ation: Central Nervous System Agents carbidopa 25 mg-levodopa 100 mg disintegrat ing tablet 2024-03 00:00: 00 Yes [id number] 1.5 tablet NOON 1.5 tablet NOON (route: oral) Med Classific ation: Central Nervous System Agents carbidopa 25 mg-levodopa 100 mg tablet 2024-03 00:00: 00 Yes [id number] 1.5 tablet EVERY AM 1.5 tablet EVERY AM (route: oral) Med Classific ation: Central Nervous System Agents carbidopa 25 mg-levodopa 100 mg tablet 2024-03 00:00: 00 Yes [id number] 1.5 tablet EVERY PM 1.5 tablet EVERY PM (route: oral) Med Classific ation: Central Nervous System Agents carbidopa 25 mg-levodopa 100 mg tablet 2024-03 00:00: 00 Yes [id number] 1.5 tablet BEDTIME 1.5 tablet BEDTIME (route: oral) Med Classific ation: Central Nervous System Agents cyclobenzap rine 10 mg tablet 2024-03 00:00: 00 Yes [id number] 1 tablet BEDTIME 1 tablet BEDTIME (route: oral) Med Classific ation: Locomotor System famotidine 40 mg tablet 2024-03 00:00: 00 Yes [id number] 1 tablet EVERY AM 1 tablet EVERY AM (route: oral) Med Classific ation: Gastroint estinal Therapy Agents meloxicam 15 mg tablet 2024-03 00:00: 00 Yes [id number] 1 tablet EVERY AM 1 tablet EVERY AM (route: oral) Med Classific ation: Analgesic , Anti-infl ammatory or Antipyret ic paroxetine 40 mg tablet 2024-03 00:00: 00 Yes [id number] 1 tablet EVERY AM 1 tablet EVERY AM (route: oral) Med Classific ation: Central Nervous System Agents trazodone 50 mg tablet 2024-03 00:00: 00 Yes [id number] 1 tablet BEDTIME 1 tablet BEDTIME (route: oral) Med Classific ation: Central Nervous System Agents Tylenol Arthritis Pain 650 mg tablet,exte nded release 2024-03 0-23 00:00: 00 Yes [id number] 1 tablet EVERY 8 HOURS 1 tablet EVERY 8 HOURS (route: oral) Med Classific ation: Analgesic , Anti-infl ammatory or Antipyret ic Farxiga 5 mg tablet 2024-03 1-03 00:00: 00 Yes [id number] 1 tablet EVERY AM 1 tablet EVERY [...] AWARENESS FOR SAFETY AND WILL NOTIFY CLINICAL SHUT OFF WORKER AND PHYSICIAN/PROVIDER WITH ANY CHANGE IN CONDITION. [code = SKILLED NURSE WILL MAINTAIN SITUATIONAL AWARENESS FOR SAFETY AND WILL NOTIFY CLINICAL SHUT OFF WORKER AND PHYSICIAN/PROVIDER WITH ANY CHANGE IN CONDITION.] [...] Notes Progress Notes <paragraph>[Visit Date: 2024 by NSEHAL SPEARS RN]:</paragraph><paragraph>PT IS A&O X3 AND FORGETFUL. SHE PRESENTS CLEAN AND NEATLY DRESSED IN KITCHEN WITH AUTOCAD DESIGNER PRESENT D/T MOUSE PROBLEM. HER HOME IS [...] WITH HER MED PP PER HER MED AUTOMATION CONTROLS SPECIALIST AND DENIES ANY ADVERSE EFFECTS.</paragraph> Encounters Start Date/Time End Date/Time Encounter Type Admission Type Attending Clinicians Care Facility Care Department Encounter ID Discharge Date Discharge Status Discharge Condition Discharge Reason Percent Goals Met 2025-01-19 00:00:00 2025-03-19 00:00:00 Outpatient RECERTIFIC ATSNEHAL VELA [facility] [id number] 76.00
--- OUTSIDE RECORDS SUMMARY | 2025-03-18 19:00 | XMS_ITS | Clinical Summary ---
Author Organization Unknown Care Team Providers Care Punch Press Feeder Name Role Phone YAIMA RASMUSSEN, KAVITA BEST Unavailable Unamirella SPEARS RN, SNEHAL Unavailable Unavailable Payers Payer Name Policy Type Policy Number Effective Date Expira tion Date [employer] MEDICARE ADVANTAGE FFS [id number] MEDICARE - [place] - PDGM [id number] Problems Condition Name Condition Details Condition Category [...] 06-25 00:00: 00 12-31 23:59 :00 No [id number] 2 puff DIRECTED 2 puff DIRECTED (route: inhalation ) Med Classific ation: Respirato ry Therapy Agents bupropion HCl XL 300 mg 24 hr tablet, extended release 06-25 00:00: 00 12-31 23:59 :00 No [id number] 1 tablet DAILY 1 tablet DAILY (route: oral) Med Classific ation: Central Nervous System Agents carbidopa 25 mg-levodopa 100 mg tablet 417 00:00: 00 12-31 23:59 :00 No [id number] 1.5 tablet 4 TIMES DAILY 1.5 tablet 4 TIMES DAILY (route: oral) Med Classific ation: Central Nervous System Agents famotidine 40 mg tablet 417 00:00: 00 09-01 23:59 :00 No [id number] 1 tablet DAILY 1 tablet DAILY (route: oral) Med Classific ation: Gastroint estinal Therapy Agents paroxetine 40 mg tablet 17 00:00: 00 12-31 23:59 :00 No [id number] 1 tablet DAILY 1 tablet DAILY (route: oral) Med Classific ation: Central Nervous System Agents trazodone 50 mg tablet 06-25 00:00: 00 09-01 23:59 :00 No [id number] Per instruc tions BEDTIME Per instructio ns BEDTIME (route: oral) Med Classific ation: Central Nervous System Agents gabapentin 100 mg capsule -24 00:00: 00 09-01 23:59 :00 No [id number] pain Per instruc tions BEDTIME Per instructio ns BEDTIME (route: oral) Med Classific ation: Central Nervous System Agents omeprazole 40 mg capsule,del ayed release -24 00:00: 00 05-20 23:59 :00 No [id number] 1 capsule DAILY 1 capsule DAILY (route: oral) Med Classific ation: Gastroint estinal Therapy Agents gabapentin 100 mg capsule 2023-03 0- 00:00: 00 09-01 23:59 :00 No [id number] Per instruc tions 2 TIMES DAILY Per instructio ns 2 TIMES DAILY (route: oral) Med Classific ation: Central Nervous System Agents famotidine 40 mg tablet 3-16 00:00: 00 12-31 23:59 :00 No [id number] 1 tablet EVERY AM 1 tablet EVERY AM (route: oral) Med Classific ation: Gastroint estinal Therapy Agents Tylenol Arthritis Pain 650 mg tablet,exte nded release 3-21 00:00: 00 12-31 23:59 :00 No [id number] 1 tablet EVERY 8 HOURS 1 tablet EVERY 8 HOURS (route: oral) Med Classific ation: Analgesic , Anti-infl ammatory or Antipyret ic cyclobenzap rine 10 mg tablet 08-05 00:00: 00 09-01 23:59 :00 No [id number] 1 tablet BEDTIME 1 tablet BEDTIME (route: oral) Med Classific ation: Locomotor System meloxicam 15 mg tablet 08-05 00:00: 00 09-01 23:59 :00 No [id number] 1 tablet DAILY 1 tablet DAILY (route: oral) Med Classific ation: Analgesic , Anti-infl ammatory or Antipyret ic cyclobenzap rine 10 mg tablet 09-01 00:00: 00 12-31 23:59 :00 No [id number] 1 tablet BEDTIME 1 tablet BEDTIME (route: oral) Med Classific ation: Locomotor System meloxicam 15 mg tablet 09-01 00:00: 00 12-31 23:59 :00 No [id number] 1 tablet EVERY AM 1 tablet EVERY AM (route: oral) Med Classific ation: Analgesic , Anti-infl ammatory or Antipyret ic trazodone 50 mg tablet 09-01 00:00: 00 12-31 23:59 :00 No [id number] Per instruc tions BEDTIME Per instructio ns BEDTIME (route: oral) Med Classific ation: Central Nervous System Agents erythromyci n 5 mg/gram (0.5 %) eye ointment 2024-03 00:00: 00 Yes [id number] Per instruc tions 4 TIMES DAILY Per instructio ns 4 TIMES DAILY (route: ophthalmic (eye)) Med Classific ation: Ophthalmi c Agents albuterol sulfate HFA 90 mcg/actuati on aerosol inhaler 2024-03 00:00: 00 Yes [id number] 2 puff EVERY 6 HOURS 2 puff EVERY 6 HOURS (route: inhalation ) Med Classific ation: Respirato ry Therapy Agents bupropion HCl XL 300 mg 24 hr tablet, extended release 2024-03 00:00: 00 Yes [id number] 1 tablet EVERY AM 1 tablet EVERY AM (route: oral) Med Classific ation: Central Nervous System Agents carbidopa 25 mg-levodopa 100 mg disintegrat ing tablet 2024-03 00:00: 00 Yes [id number] 1.5 tablet NOON 1.5 tablet NOON (route: oral) Med Classific ation: Central Nervous System Agents carbidopa 25 mg-levodopa 100 mg tablet 2024-03 00:00: 00 Yes [id number] 1.5 tablet EVERY AM 1.5 tablet EVERY AM (route: oral) Med Classific ation: Central Nervous System Agents carbidopa 25 mg-levodopa 100 mg tablet 2024-03 00:00: 00 Yes [id number] 1.5 tablet EVERY PM 1.5 tablet EVERY PM (route: oral) Med Classific ation: Central Nervous System Agents carbidopa 25 mg-levodopa 100 mg tablet 2024-03 00:00: 00 Yes [id number] 1.5 tablet BEDTIME 1.5 tablet BEDTIME (route: oral) Med Classific ation: Central Nervous System Agents cyclobenzap rine 10 mg tablet 2024-03 00:00: 00 Yes [id number] 1 tablet BEDTIME 1 tablet BEDTIME (route: oral) Med Classific ation: Locomotor System famotidine 40 mg tablet 2024-03 00:00: 00 Yes [id number] 1 tablet EVERY AM 1 tablet EVERY AM (route: oral) Med Classific ation: Gastroint estinal Therapy Agents meloxicam 15 mg tablet 2024-03 00:00: 00 Yes [id number] 1 tablet EVERY AM 1 tablet EVERY AM (route: oral) Med Classific ation: Analgesic , Anti-infl ammatory or Antipyret ic paroxetine 40 mg tablet 2024-03 00:00: 00 Yes [id number] 1 tablet EVERY AM 1 tablet EVERY AM (route: oral) Med Classific ation: Central Nervous System Agents trazodone 50 mg tablet 2024-03 00:00: 00 Yes [id number] 1 tablet BEDTIME 1 tablet BEDTIME (route: oral) Med Classific ation: Central Nervous System Agents Tylenol Arthritis Pain 650 mg tablet,exte nded release 2024-03 0-23 00:00: 00 Yes [id number] 1 tablet EVERY 8 HOURS 1 tablet EVERY 8 HOURS (route: oral) Med Classific ation: Analgesic , Anti-infl ammatory or Antipyret ic Farxiga 5 mg tablet 2024-03 1-03 00:00: 00 Yes [id number] 1 tablet EVERY AM 1 tablet EVERY [...] AWARENESS FOR SAFETY AND WILL NOTIFY CLINICAL FILM SPLICER AND PHYSICIAN/PROVIDER WITH ANY CHANGE IN CONDITION. [code = SKILLED NURSE WILL MAINTAIN SITUATIONAL AWARENESS FOR SAFETY AND WILL NOTIFY CLINICAL FILM SPLICER AND PHYSICIAN/PROVIDER WITH ANY CHANGE IN CONDITION.] [...] CLEAN AND NEATLY DRESSED IN KITCHEN WITH WET SANDER PRESENT D/T MOUSE PROBLEM. 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 [id number] 76.00
--- OUTSIDE RECORDS SUMMARY | 2025-03-18 19:00 | XMS_ITS | Clinical Summary ---
Author Organization Unknown Care Team Providers Care German Tutor Name Role Phone YAIMA RASMUSSEN, KAVITA BEST Unavailable Unamirella SPEARS RN, SNEHAL Unavailable Unavailable Payers Payer Name Policy Type Policy Number Effective Date Expira tion Date [employer] MEDICARE ADVANTAGE FFS [id number] MEDICARE - [place]GM [id number] Problems Condition Name Condition Details Condition Category [...] 06-25 00:00: 00 12-31 23:59 :00 No [id number] 2 puff DIRECTED 2 puff DIRECTED (route: inhalation ) Med Classific ation: Respirato ry Therapy Agents bupropion HCl XL 300 mg 24 hr tablet, extended release 06-25 00:00: 00 12-31 23:59 :00 No [id number] 1 tablet DAILY 1 tablet DAILY (route: oral) Med Classific ation: Central Nervous System Agents carbidopa 25 mg-levodopa 100 mg tablet 417 00:00: 00 12-31 23:59 :00 No [id number] 1.5 tablet 4 TIMES DAILY 1.5 tablet 4 TIMES DAILY (route: oral) Med Classific ation: Central Nervous System Agents famotidine 40 mg tablet 417 00:00: 00 09-01 23:59 :00 No [id number] 1 tablet DAILY 1 tablet DAILY (route: oral) Med Classific ation: Gastroint estinal Therapy Agents paroxetine 40 mg tablet 17 00:00: 00 12-31 23:59 :00 No [id number] 1 tablet DAILY 1 tablet DAILY (route: oral) Med Classific ation: Central Nervous System Agents trazodone 50 mg tablet 06-25 00:00: 00 09-01 23:59 :00 No [id number] Per instruc tions BEDTIME Per instructio ns BEDTIME (route: oral) Med Classific ation: Central Nervous System Agents gabapentin 100 mg capsule -24 00:00: 00 09-01 23:59 :00 No [id number] pain Per instruc tions BEDTIME Per instructio ns BEDTIME (route: oral) Med Classific ation: Central Nervous System Agents omeprazole 40 mg capsule,del ayed release -24 00:00: 00 05-20 23:59 :00 No [id number] 1 capsule DAILY 1 capsule DAILY (route: oral) Med Classific ation: Gastroint estinal Therapy Agents gabapentin 100 mg capsule 2023-03 0- 00:00: 00 09-01 23:59 :00 No [id number] Per instruc tions 2 TIMES DAILY Per instructio ns 2 TIMES DAILY (route: oral) Med Classific ation: Central Nervous System Agents famotidine 40 mg tablet 3-16 00:00: 00 12-31 23:59 :00 No [id number] 1 tablet EVERY AM 1 tablet EVERY AM (route: oral) Med Classific ation: Gastroint estinal Therapy Agents Tylenol Arthritis Pain 650 mg tablet,exte nded release 3-21 00:00: 00 12-31 23:59 :00 No [id number] 1 tablet EVERY 8 HOURS 1 tablet EVERY 8 HOURS (route: oral) Med Classific ation: Analgesic , Anti-infl ammatory or Antipyret ic cyclobenzap rine 10 mg tablet 08-05 00:00: 00 09-01 23:59 :00 No [id number] 1 tablet BEDTIME 1 tablet BEDTIME (route: oral) Med Classific ation: Locomotor System meloxicam 15 mg tablet 08-05 00:00: 00 09-01 23:59 :00 No [id number] 1 tablet DAILY 1 tablet DAILY (route: oral) Med Classific ation: Analgesic , Anti-infl ammatory or Antipyret ic cyclobenzap rine 10 mg tablet 09-01 00:00: 00 12-31 23:59 :00 No [id number] 1 tablet BEDTIME 1 tablet BEDTIME (route: oral) Med Classific ation: Locomotor System meloxicam 15 mg tablet 09-01 00:00: 00 12-31 23:59 :00 No [id number] 1 tablet EVERY AM 1 tablet EVERY AM (route: oral) Med Classific ation: Analgesic , Anti-infl ammatory or Antipyret ic trazodone 50 mg tablet 09-01 00:00: 00 12-31 23:59 :00 No [id number] Per instruc tions BEDTIME Per instructio ns BEDTIME (route: oral) Med Classific ation: Central Nervous System Agents erythromyci n 5 mg/gram (0.5 %) eye ointment 2024-03 00:00: 00 Yes [id number] Per instruc tions 4 TIMES DAILY Per instructio ns 4 TIMES DAILY (route: ophthalmic (eye)) Med Classific ation: Ophthalmi c Agents albuterol sulfate HFA 90 mcg/actuati on aerosol inhaler 2024-03 00:00: 00 Yes [id number] 2 puff EVERY 6 HOURS 2 puff EVERY 6 HOURS (route: inhalation ) Med Classific ation: Respirato ry Therapy Agents bupropion HCl XL 300 mg 24 hr tablet, extended release 2024-03 00:00: 00 Yes [id number] 1 tablet EVERY AM 1 tablet EVERY AM (route: oral) Med Classific ation: Central Nervous System Agents carbidopa 25 mg-levodopa 100 mg disintegrat ing tablet 2024-03 00:00: 00 Yes [id number] 1.5 tablet NOON 1.5 tablet NOON (route: oral) Med Classific ation: Central Nervous System Agents carbidopa 25 mg-levodopa 100 mg tablet 2024-03 00:00: 00 Yes [id number] 1.5 tablet EVERY AM 1.5 tablet EVERY AM (route: oral) Med Classific ation: Central Nervous System Agents carbidopa 25 mg-levodopa 100 mg tablet 2024-03 00:00: 00 Yes [id number] 1.5 tablet EVERY PM 1.5 tablet EVERY PM (route: oral) Med Classific ation: Central Nervous System Agents carbidopa 25 mg-levodopa 100 mg tablet 2024-03 00:00: 00 Yes [id number] 1.5 tablet BEDTIME 1.5 tablet BEDTIME (route: oral) Med Classific ation: Central Nervous System Agents cyclobenzap rine 10 mg tablet 2024-03 00:00: 00 Yes [id number] 1 tablet BEDTIME 1 tablet BEDTIME (route: oral) Med Classific ation: Locomotor System famotidine 40 mg tablet 2024-03 00:00: 00 Yes [id number] 1 tablet EVERY AM 1 tablet EVERY AM (route: oral) Med Classific ation: Gastroint estinal Therapy Agents meloxicam 15 mg tablet 2024-03 00:00: 00 Yes [id number] 1 tablet EVERY AM 1 tablet EVERY AM (route: oral) Med Classific ation: Analgesic , Anti-infl ammatory or Antipyret ic paroxetine 40 mg tablet 2024-03 00:00: 00 Yes [id number] 1 tablet EVERY AM 1 tablet EVERY AM (route: oral) Med Classific ation: Central Nervous System Agents trazodone 50 mg tablet 2024-03 00:00: 00 Yes [id number] 1 tablet BEDTIME 1 tablet BEDTIME (route: oral) Med Classific ation: Central Nervous System Agents Tylenol Arthritis Pain 650 mg tablet,exte nded release 2024-03 0-23 00:00: 00 Yes [id number] 1 tablet EVERY 8 HOURS 1 tablet EVERY 8 HOURS (route: oral) Med Classific ation: Analgesic , Anti-infl ammatory or Antipyret ic Farxiga 5 mg tablet 2024-03 1-03 00:00: 00 Yes [id number] 1 tablet EVERY AM 1 tablet EVERY [...] AWARENESS FOR SAFETY AND WILL NOTIFY CLINICAL PATIENT SERVICES REPRESENTATIVE AND PHYSICIAN/PROVIDER WITH ANY CHANGE IN CONDITION. [code = SKILLED NURSE WILL MAINTAIN SITUATIONAL AWARENESS FOR SAFETY AND WILL NOTIFY CLINICAL PATIENT SERVICES REPRESENTATIVE AND PHYSICIAN/PROVIDER WITH ANY CHANGE IN CONDITION.] [...] CLEAN AND NEATLY DRESSED IN KITCHEN WITH RECOVERY ADVOCATE PRESENT D/T MOUSE PROBLEM. 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
--- OUTSIDE RECORDS SUMMARY | 2025-03-18 19:00 | XMS_ITS | Clinical Summary ---
Author Organization Unknown Care Team Providers Care Chemical Milling Processor Name Role Phone YAIMA RASMUSSEN, KAVITA BEST Unavailable Unamirella SPEARS RN, SNEHAL Unavailable Unavailable Payers Payer Name Policy Type Policy Number Effective Date Expira tion Date [employer] MEDICARE ADVANTAGE FFS [id number] MEDICARE - [place]GM [id number] Problems Condition Name Condition Details Condition Category [...] 06-25 00:00: 00 12-31 23:59 :00 No [id number] 2 puff DIRECTED 2 puff DIRECTED (route: inhalation ) Med Classific ation: Respirato ry Therapy Agents bupropion HCl XL 300 mg 24 hr tablet, extended release 06-25 00:00: 00 12-31 23:59 :00 No [id number] 1 tablet DAILY 1 tablet DAILY (route: oral) Med Classific ation: Central Nervous System Agents carbidopa 25 mg-levodopa 100 mg tablet 417 00:00: 00 12-31 23:59 :00 No [id number] 1.5 tablet 4 TIMES DAILY 1.5 tablet 4 TIMES DAILY (route: oral) Med Classific ation: Central Nervous System Agents famotidine 40 mg tablet 417 00:00: 00 09-01 23:59 :00 No [id number] 1 tablet DAILY 1 tablet DAILY (route: oral) Med Classific ation: Gastroint estinal Therapy Agents paroxetine 40 mg tablet 17 00:00: 00 12-31 23:59 :00 No [id number] 1 tablet DAILY 1 tablet DAILY (route: oral) Med Classific ation: Central Nervous System Agents trazodone 50 mg tablet 06-25 00:00: 00 09-01 23:59 :00 No [id number] Per instruc tions BEDTIME Per instructio ns BEDTIME (route: oral) Med Classific ation: Central Nervous System Agents gabapentin 100 mg capsule -24 00:00: 00 09-01 23:59 :00 No [id number] pain Per instruc tions BEDTIME Per instructio ns BEDTIME (route: oral) Med Classific ation: Central Nervous System Agents omeprazole 40 mg capsule,del ayed release -24 00:00: 00 05-20 23:59 :00 No [id number] 1 capsule DAILY 1 capsule DAILY (route: oral) Med Classific ation: Gastroint estinal Therapy Agents gabapentin 100 mg capsule 2023-03 0- 00:00: 00 09-01 23:59 :00 No [id number] Per instruc tions 2 TIMES DAILY Per instructio ns 2 TIMES DAILY (route: oral) Med Classific ation: Central Nervous System Agents famotidine 40 mg tablet 3-16 00:00: 00 12-31 23:59 :00 No [id number] 1 tablet EVERY AM 1 tablet EVERY AM (route: oral) Med Classific ation: Gastroint estinal Therapy Agents Tylenol Arthritis Pain 650 mg tablet,exte nded release 3-21 00:00: 00 12-31 23:59 :00 No [id number] 1 tablet EVERY 8 HOURS 1 tablet EVERY 8 HOURS (route: oral) Med Classific ation: Analgesic , Anti-infl ammatory or Antipyret ic cyclobenzap rine 10 mg tablet 08-05 00:00: 00 09-01 23:59 :00 No [id number] 1 tablet BEDTIME 1 tablet BEDTIME (route: oral) Med Classific ation: Locomotor System meloxicam 15 mg tablet 08-05 00:00: 00 09-01 23:59 :00 No [id number] 1 tablet DAILY 1 tablet DAILY (route: oral) Med Classific ation: Analgesic , Anti-infl ammatory or Antipyret ic cyclobenzap rine 10 mg tablet 09-01 00:00: 00 12-31 23:59 :00 No [id number] 1 tablet BEDTIME 1 tablet BEDTIME (route: oral) Med Classific ation: Locomotor System meloxicam 15 mg tablet 09-01 00:00: 00 12-31 23:59 :00 No [id number] 1 tablet EVERY AM 1 tablet EVERY AM (route: oral) Med Classific ation: Analgesic , Anti-infl ammatory or Antipyret ic trazodone 50 mg tablet 09-01 00:00: 00 12-31 23:59 :00 No [id number] Per instruc tions BEDTIME Per instructio ns BEDTIME (route: oral) Med Classific ation: Central Nervous System Agents erythromyci n 5 mg/gram (0.5 %) eye ointment 2024-03 00:00: 00 Yes [id number] Per instruc tions 4 TIMES DAILY Per instructio ns 4 TIMES DAILY (route: ophthalmic (eye)) Med Classific ation: Ophthalmi c Agents albuterol sulfate HFA 90 mcg/actuati on aerosol inhaler 2024-03 00:00: 00 Yes [id number] 2 puff EVERY 6 HOURS 2 puff EVERY 6 HOURS (route: inhalation ) Med Classific ation: Respirato ry Therapy Agents bupropion HCl XL 300 mg 24 hr tablet, extended release 2024-03 00:00: 00 Yes [id number] 1 tablet EVERY AM 1 tablet EVERY AM (route: oral) Med Classific ation: Central Nervous System Agents carbidopa 25 mg-levodopa 100 mg disintegrat ing tablet 2024-03 00:00: 00 Yes [id number] 1.5 tablet NOON 1.5 tablet NOON (route: oral) Med Classific ation: Central Nervous System Agents carbidopa 25 mg-levodopa 100 mg tablet 2024-03 00:00: 00 Yes [id number] 1.5 tablet EVERY AM 1.5 tablet EVERY AM (route: oral) Med Classific ation: Central Nervous System Agents carbidopa 25 mg-levodopa 100 mg tablet 2024-03 00:00: 00 Yes [id number] 1.5 tablet EVERY PM 1.5 tablet EVERY PM (route: oral) Med Classific ation: Central Nervous System Agents carbidopa 25 mg-levodopa 100 mg tablet 2024-03 00:00: 00 Yes [id number] 1.5 tablet BEDTIME 1.5 tablet BEDTIME (route: oral) Med Classific ation: Central Nervous System Agents cyclobenzap rine 10 mg tablet 2024-03 00:00: 00 Yes [id number] 1 tablet BEDTIME 1 tablet BEDTIME (route: oral) Med Classific ation: Locomotor System famotidine 40 mg tablet 2024-03 00:00: 00 Yes [id number] 1 tablet EVERY AM 1 tablet EVERY AM (route: oral) Med Classific ation: Gastroint estinal Therapy Agents meloxicam 15 mg tablet 2024-03 00:00: 00 Yes [id number] 1 tablet EVERY AM 1 tablet EVERY AM (route: oral) Med Classific ation: Analgesic , Anti-infl ammatory or Antipyret ic paroxetine 40 mg tablet 2024-03 00:00: 00 Yes [id number] 1 tablet EVERY AM 1 tablet EVERY AM (route: oral) Med Classific ation: Central Nervous System Agents trazodone 50 mg tablet 2024-03 00:00: 00 Yes [id number] 1 tablet BEDTIME 1 tablet BEDTIME (route: oral) Med Classific ation: Central Nervous System Agents Tylenol Arthritis Pain 650 mg tablet,exte nded release 2024-03 0-23 00:00: 00 Yes [id number] 1 tablet EVERY 8 HOURS 1 tablet EVERY 8 HOURS (route: oral) Med Classific ation: Analgesic , Anti-infl ammatory or Antipyret ic Farxiga 5 mg tablet 2024-03 1-03 00:00: 00 Yes [id number] 1 tablet EVERY AM 1 tablet EVERY [...] AWARENESS FOR SAFETY AND WILL NOTIFY CLINICAL GRADUATE SCHOOL DEAN AND PHYSICIAN/PROVIDER WITH ANY CHANGE IN CONDITION. [code = SKILLED NURSE WILL MAINTAIN SITUATIONAL AWARENESS FOR SAFETY AND WILL NOTIFY CLINICAL GRADUATE SCHOOL DEAN AND PHYSICIAN/PROVIDER WITH ANY CHANGE IN CONDITION.] [...] CLEAN AND NEATLY DRESSED IN KITCHEN WITH ART OBJECTS REPAIRER PRESENT D/T MOUSE PROBLEM. 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
--- OUTSIDE RECORDS SUMMARY | 2025-03-18 19:00 | XMS_ITS | Clinical Summary ---
Author Organization Unknown Care Team Providers Care Superior Court Clerk Name Role Phone YAIMA RASMUSSEN, KAVITA BEST Unavailable Unamirella SPEARS RN, SNEHAL Unavailable Unavailable Payers Payer Name Policy Type Policy Number Effective Date Expira tion Date [employer] MEDICARE ADVANTAGE FFS [id number] MEDICARE - [place] PDGM [id number] Problems Condition Name Condition Details Condition Category [...] 06-25 00:00: 00 12-31 23:59 :00 No [id number] 2 puff DIRECTED 2 puff DIRECTED (route: inhalation ) Med Classific ation: Respirato ry Therapy Agents bupropion HCl XL 300 mg 24 hr tablet, extended release 06-25 00:00: 00 12-31 23:59 :00 No [id number] 1 tablet DAILY 1 tablet DAILY (route: oral) Med Classific ation: Central Nervous System Agents carbidopa 25 mg-levodopa 100 mg tablet 417 00:00: 00 12-31 23:59 :00 No [id number] 1.5 tablet 4 TIMES DAILY 1.5 tablet 4 TIMES DAILY (route: oral) Med Classific ation: Central Nervous System Agents famotidine 40 mg tablet 417 00:00: 00 09-01 23:59 :00 No [id number] 1 tablet DAILY 1 tablet DAILY (route: oral) Med Classific ation: Gastroint estinal Therapy Agents paroxetine 40 mg tablet 17 00:00: 00 12-31 23:59 :00 No [id number] 1 tablet DAILY 1 tablet DAILY (route: oral) Med Classific ation: Central Nervous System Agents trazodone 50 mg tablet 06-25 00:00: 00 09-01 23:59 :00 No [id number] Per instruc tions BEDTIME Per instructio ns BEDTIME (route: oral) Med Classific ation: Central Nervous System Agents gabapentin 100 mg capsule -24 00:00: 00 09-01 23:59 :00 No [id number] pain Per instruc tions BEDTIME Per instructio ns BEDTIME (route: oral) Med Classific ation: Central Nervous System Agents omeprazole 40 mg capsule,del ayed release -24 00:00: 00 05-20 23:59 :00 No [id number] 1 capsule DAILY 1 capsule DAILY (route: oral) Med Classific ation: Gastroint estinal Therapy Agents gabapentin 100 mg capsule 2023-03 0- 00:00: 00 09-01 23:59 :00 No [id number] Per instruc tions 2 TIMES DAILY Per instructio ns 2 TIMES DAILY (route: oral) Med Classific ation: Central Nervous System Agents famotidine 40 mg tablet 3-16 00:00: 00 12-31 23:59 :00 No [id number] 1 tablet EVERY AM 1 tablet EVERY AM (route: oral) Med Classific ation: Gastroint estinal Therapy Agents Tylenol Arthritis Pain 650 mg tablet,exte nded release 3-21 00:00: 00 12-31 23:59 :00 No [id number] 1 tablet EVERY 8 HOURS 1 tablet EVERY 8 HOURS (route: oral) Med Classific ation: Analgesic , Anti-infl ammatory or Antipyret ic cyclobenzap rine 10 mg tablet 08-05 00:00: 00 09-01 23:59 :00 No [id number] 1 tablet BEDTIME 1 tablet BEDTIME (route: oral) Med Classific ation: Locomotor System meloxicam 15 mg tablet 08-05 00:00: 00 09-01 23:59 :00 No [id number] 1 tablet DAILY 1 tablet DAILY (route: oral) Med Classific ation: Analgesic , Anti-infl ammatory or Antipyret ic cyclobenzap rine 10 mg tablet 09-01 00:00: 00 12-31 23:59 :00 No [id number] 1 tablet BEDTIME 1 tablet BEDTIME (route: oral) Med Classific ation: Locomotor System meloxicam 15 mg tablet 09-01 00:00: 00 12-31 23:59 :00 No [id number] 1 tablet EVERY AM 1 tablet EVERY AM (route: oral) Med Classific ation: Analgesic , Anti-infl ammatory or Antipyret ic trazodone 50 mg tablet 09-01 00:00: 00 12-31 23:59 :00 No [id number] Per instruc tions BEDTIME Per instructio ns BEDTIME (route: oral) Med Classific ation: Central Nervous System Agents erythromyci n 5 mg/gram (0.5 %) eye ointment 2024-03 00:00: 00 Yes [id number] Per instruc tions 4 TIMES DAILY Per instructio ns 4 TIMES DAILY (route: ophthalmic (eye)) Med Classific ation: Ophthalmi c Agents albuterol sulfate HFA 90 mcg/actuati on aerosol inhaler 2024-03 00:00: 00 Yes [id number] 2 puff EVERY 6 HOURS 2 puff EVERY 6 HOURS (route: inhalation ) Med Classific ation: Respirato ry Therapy Agents bupropion HCl XL 300 mg 24 hr tablet, extended release 2024-03 00:00: 00 Yes [id number] 1 tablet EVERY AM 1 tablet EVERY AM (route: oral) Med Classific ation: Central Nervous System Agents carbidopa 25 mg-levodopa 100 mg disintegrat ing tablet 2024-03 00:00: 00 Yes [id number] 1.5 tablet NOON 1.5 tablet NOON (route: oral) Med Classific ation: Central Nervous System Agents carbidopa 25 mg-levodopa 100 mg tablet 2024-03 00:00: 00 Yes [id number] 1.5 tablet EVERY AM 1.5 tablet EVERY AM (route: oral) Med Classific ation: Central Nervous System Agents carbidopa 25 mg-levodopa 100 mg tablet 2024-03 00:00: 00 Yes [id number] 1.5 tablet EVERY PM 1.5 tablet EVERY PM (route: oral) Med Classific ation: Central Nervous System Agents carbidopa 25 mg-levodopa 100 mg tablet 2024-03 00:00: 00 Yes [id number] 1.5 tablet BEDTIME 1.5 tablet BEDTIME (route: oral) Med Classific ation: Central Nervous System Agents cyclobenzap rine 10 mg tablet 2024-03 00:00: 00 Yes [id number] 1 tablet BEDTIME 1 tablet BEDTIME (route: oral) Med Classific ation: Locomotor System famotidine 40 mg tablet 2024-03 00:00: 00 Yes [id number] 1 tablet EVERY AM 1 tablet EVERY AM (route: oral) Med Classific ation: Gastroint estinal Therapy Agents meloxicam 15 mg tablet 2024-03 00:00: 00 Yes [id number] 1 tablet EVERY AM 1 tablet EVERY AM (route: oral) Med Classific ation: Analgesic , Anti-infl ammatory or Antipyret ic paroxetine 40 mg tablet 2024-03 00:00: 00 Yes [id number] 1 tablet EVERY AM 1 tablet EVERY AM (route: oral) Med Classific ation: Central Nervous System Agents trazodone 50 mg tablet 2024-03 00:00: 00 Yes [id number] 1 tablet BEDTIME 1 tablet BEDTIME (route: oral) Med Classific ation: Central Nervous System Agents Tylenol Arthritis Pain 650 mg tablet,exte nded release 2024-03 0-23 00:00: 00 Yes [id number] 1 tablet EVERY 8 HOURS 1 tablet EVERY 8 HOURS (route: oral) Med Classific ation: Analgesic , Anti-infl ammatory or Antipyret ic Farxiga 5 mg tablet 2024-03 1-03 00:00: 00 Yes [id number] 1 tablet EVERY AM 1 tablet EVERY [...] AWARENESS FOR SAFETY AND WILL NOTIFY CLINICAL GRADES 1 6 TUTOR AND PHYSICIAN/PROVIDER WITH ANY CHANGE IN CONDITION. 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 HER HOME [...] WITH HER MED PP PER HER MED BAND SHOVER AND DENIES ANY ADVERSE EFFECTS.</paragraph> Encounters Start Date/Time End Date/Time Encounter Type Admission Type Attending Clinicians Care Facility Care Department Encounter ID Discharge Date Discharge Status Discharge Condition Discharge Reason Percent Goals Met 2025-01-19 00:00:00 2025-03-19 00:00:00 Outpatient RECERTIFIC ATSNEHAL VELA [facility] [id number] 76.00
--- OUTSIDE RECORDS SUMMARY | 2025-03-18 19:00 | XMS_ITS | Clinical Summary ---
Author Organization Unknown Care Team Providers Care Estimator Printing Name Role Phone YAIMA RASMUSSEN, KAVITA BEST Unavailable Unamirella SPEARS RN, SNEHAL Unavailable Unavailable Payers Payer Name Policy Type Policy Number Effective Date Expira tion Date [employer] MEDICARE ADVANTAGE FFS [id number] MEDICARE - [place] PDGM [id number] Problems Condition Name Condition Details Condition Category [...] 06-25 00:00: 00 12-31 23:59 :00 No [id number] 2 puff DIRECTED 2 puff DIRECTED (route: inhalation ) Med Classific ation: Respirato ry Therapy Agents bupropion HCl XL 300 mg 24 hr tablet, extended release 06-25 00:00: 00 12-31 23:59 :00 No [id number] 1 tablet DAILY 1 tablet DAILY (route: oral) Med Classific ation: Central Nervous System Agents carbidopa 25 mg-levodopa 100 mg tablet 417 00:00: 00 12-31 23:59 :00 No [id number] 1.5 tablet 4 TIMES DAILY 1.5 tablet 4 TIMES DAILY (route: oral) Med Classific ation: Central Nervous System Agents famotidine 40 mg tablet 417 00:00: 00 09-01 23:59 :00 No [id number] 1 tablet DAILY 1 tablet DAILY (route: oral) Med Classific ation: Gastroint estinal Therapy Agents paroxetine 40 mg tablet 17 00:00: 00 12-31 23:59 :00 No [id number] 1 tablet DAILY 1 tablet DAILY (route: oral) Med Classific ation: Central Nervous System Agents trazodone 50 mg tablet 06-25 00:00: 00 09-01 23:59 :00 No [id number] Per instruc tions BEDTIME Per instructio ns BEDTIME (route: oral) Med Classific ation: Central Nervous System Agents gabapentin 100 mg capsule -24 00:00: 00 09-01 23:59 :00 No [id number] pain Per instruc tions BEDTIME Per instructio ns BEDTIME (route: oral) Med Classific ation: Central Nervous System Agents omeprazole 40 mg capsule,del ayed release -24 00:00: 00 05-20 23:59 :00 No [id number] 1 capsule DAILY 1 capsule DAILY (route: oral) Med Classific ation: Gastroint estinal Therapy Agents gabapentin 100 mg capsule 2023-03 0- 00:00: 00 09-01 23:59 :00 No [id number] Per instruc tions 2 TIMES DAILY Per instructio ns 2 TIMES DAILY (route: oral) Med Classific ation: Central Nervous System Agents famotidine 40 mg tablet 3-16 00:00: 00 12-31 23:59 :00 No [id number] 1 tablet EVERY AM 1 tablet EVERY AM (route: oral) Med Classific ation: Gastroint estinal Therapy Agents Tylenol Arthritis Pain 650 mg tablet,exte nded release 3-21 00:00: 00 12-31 23:59 :00 No [id number] 1 tablet EVERY 8 HOURS 1 tablet EVERY 8 HOURS (route: oral) Med Classific ation: Analgesic , Anti-infl ammatory or Antipyret ic cyclobenzap rine 10 mg tablet 08-05 00:00: 00 09-01 23:59 :00 No [id number] 1 tablet BEDTIME 1 tablet BEDTIME (route: oral) Med Classific ation: Locomotor System meloxicam 15 mg tablet 08-05 00:00: 00 09-01 23:59 :00 No [id number] 1 tablet DAILY 1 tablet DAILY (route: oral) Med Classific ation: Analgesic , Anti-infl ammatory or Antipyret ic cyclobenzap rine 10 mg tablet 09-01 00:00: 00 12-31 23:59 :00 No [id number] 1 tablet BEDTIME 1 tablet BEDTIME (route: oral) Med Classific ation: Locomotor System meloxicam 15 mg tablet 09-01 00:00: 00 12-31 23:59 :00 No [id number] 1 tablet EVERY AM 1 tablet EVERY AM (route: oral) Med Classific ation: Analgesic , Anti-infl ammatory or Antipyret ic trazodone 50 mg tablet 09-01 00:00: 00 12-31 23:59 :00 No [id number] Per instruc tions BEDTIME Per instructio ns BEDTIME (route: oral) Med Classific ation: Central Nervous System Agents erythromyci n 5 mg/gram (0.5 %) eye ointment 2024-03 00:00: 00 Yes [id number] Per instruc tions 4 TIMES DAILY Per instructio ns 4 TIMES DAILY (route: ophthalmic (eye)) Med Classific ation: Ophthalmi c Agents albuterol sulfate HFA 90 mcg/actuati on aerosol inhaler 2024-03 00:00: 00 Yes [id number] 2 puff EVERY 6 HOURS 2 puff EVERY 6 HOURS (route: inhalation ) Med Classific ation: Respirato ry Therapy Agents bupropion HCl XL 300 mg 24 hr tablet, extended release 2024-03 00:00: 00 Yes [id number] 1 tablet EVERY AM 1 tablet EVERY AM (route: oral) Med Classific ation: Central Nervous System Agents carbidopa 25 mg-levodopa 100 mg disintegrat ing tablet 2024-03 00:00: 00 Yes [id number] 1.5 tablet NOON 1.5 tablet NOON (route: oral) Med Classific ation: Central Nervous System Agents carbidopa 25 mg-levodopa 100 mg tablet 2024-03 00:00: 00 Yes [id number] 1.5 tablet EVERY AM 1.5 tablet EVERY AM (route: oral) Med Classific ation: Central Nervous System Agents carbidopa 25 mg-levodopa 100 mg tablet 2024-03 00:00: 00 Yes [id number] 1.5 tablet EVERY PM 1.5 tablet EVERY PM (route: oral) Med Classific ation: Central Nervous System Agents carbidopa 25 mg-levodopa 100 mg tablet 2024-03 00:00: 00 Yes [id number] 1.5 tablet BEDTIME 1.5 tablet BEDTIME (route: oral) Med Classific ation: Central Nervous System Agents cyclobenzap rine 10 mg tablet 2024-03 00:00: 00 Yes [id number] 1 tablet BEDTIME 1 tablet BEDTIME (route: oral) Med Classific ation: Locomotor System famotidine 40 mg tablet 2024-03 00:00: 00 Yes [id number] 1 tablet EVERY AM 1 tablet EVERY AM (route: oral) Med Classific ation: Gastroint estinal Therapy Agents meloxicam 15 mg tablet 2024-03 00:00: 00 Yes [id number] 1 tablet EVERY AM 1 tablet EVERY AM (route: oral) Med Classific ation: Analgesic , Anti-infl ammatory or Antipyret ic paroxetine 40 mg tablet 2024-03 00:00: 00 Yes [id number] 1 tablet EVERY AM 1 tablet EVERY AM (route: oral) Med Classific ation: Central Nervous System Agents trazodone 50 mg tablet 2024-03 00:00: 00 Yes [id number] 1 tablet BEDTIME 1 tablet BEDTIME (route: oral) Med Classific ation: Central Nervous System Agents Tylenol Arthritis Pain 650 mg tablet,exte nded release 2024-03 0-23 00:00: 00 Yes [id number] 1 tablet EVERY 8 HOURS 1 tablet EVERY 8 HOURS (route: oral) Med Classific ation: Analgesic , Anti-infl ammatory or Antipyret ic Farxiga 5 mg tablet 2024-03 1-03 00:00: 00 Yes [id number] 1 tablet EVERY AM 1 tablet EVERY [...] AWARENESS FOR SAFETY AND WILL NOTIFY CLINICAL CONDUIT REAMER OPERATOR AND PHYSICIAN/PROVIDER WITH ANY CHANGE IN CONDITION. 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 HER HOME [...] WITH HER MED PP PER HER MED TERMITE TECHNICIAN AND DENIES ANY ADVERSE EFFECTS.</paragraph> Encounters Start Date/Time End Date/Time Encounter Type Admission Type Attending Clinicians Care Facility Care Department Encounter ID Discharge Date Discharge Status Discharge Condition Discharge Reason Percent Goals Met 2025-01-19 00:00:00 2025-03-19 00:00:00 Outpatient RECERTIFIC ATSNEHAL VELA [facility] [id number] 76.00
--- OUTSIDE RECORDS SUMMARY | 2025-03-18 19:00 | XMS_ITS | Clinical Summary ---
Author Organization Unknown Care Team Providers Care Hand Sander Name Role Phone YAIMA RASMUSSEN, KAVITA BEST Unavailable Unamirella SPEARS RN, SNEHAL Unavailable Unavailable Payers Payer Name Policy Type Policy Number Effective Date Expira tion Date [employer] MEDICARE ADVANTAGE FFS [id number] MEDICARE - [place] - PDGM [id number] Problems Condition Name Condition Details Condition Category [...] 06-25 00:00: 00 12-31 23:59 :00 No [id number] 2 puff DIRECTED 2 puff DIRECTED (route: inhalation ) Med Classific ation: Respirato ry Therapy Agents bupropion HCl XL 300 mg 24 hr tablet, extended release 06-25 00:00: 00 12-31 23:59 :00 No [id number] 1 tablet DAILY 1 tablet DAILY (route: oral) Med Classific ation: Central Nervous System Agents carbidopa 25 mg-levodopa 100 mg tablet 417 00:00: 00 12-31 23:59 :00 No [id number] 1.5 tablet 4 TIMES DAILY 1.5 tablet 4 TIMES DAILY (route: oral) Med Classific ation: Central Nervous System Agents famotidine 40 mg tablet 417 00:00: 00 09-01 23:59 :00 No [id number] 1 tablet DAILY 1 tablet DAILY (route: oral) Med Classific ation: Gastroint estinal Therapy Agents paroxetine 40 mg tablet 17 00:00: 00 12-31 23:59 :00 No [id number] 1 tablet DAILY 1 tablet DAILY (route: oral) Med Classific ation: Central Nervous System Agents trazodone 50 mg tablet 06-25 00:00: 00 09-01 23:59 :00 No [id number] Per instruc tions BEDTIME Per instructio ns BEDTIME (route: oral) Med Classific ation: Central Nervous System Agents gabapentin 100 mg capsule -24 00:00: 00 09-01 23:59 :00 No [id number] pain Per instruc tions BEDTIME Per instructio ns BEDTIME (route: oral) Med Classific ation: Central Nervous System Agents omeprazole 40 mg capsule,del ayed release -24 00:00: 00 05-20 23:59 :00 No [id number] 1 capsule DAILY 1 capsule DAILY (route: oral) Med Classific ation: Gastroint estinal Therapy Agents gabapentin 100 mg capsule 2023-03 0- 00:00: 00 09-01 23:59 :00 No [id number] Per instruc tions 2 TIMES DAILY Per instructio ns 2 TIMES DAILY (route: oral) Med Classific ation: Central Nervous System Agents famotidine 40 mg tablet 3-16 00:00: 00 12-31 23:59 :00 No [id number] 1 tablet EVERY AM 1 tablet EVERY AM (route: oral) Med Classific ation: Gastroint estinal Therapy Agents Tylenol Arthritis Pain 650 mg tablet,exte nded release 3-21 00:00: 00 12-31 23:59 :00 No [id number] 1 tablet EVERY 8 HOURS 1 tablet EVERY 8 HOURS (route: oral) Med Classific ation: Analgesic , Anti-infl ammatory or Antipyret ic cyclobenzap rine 10 mg tablet 08-05 00:00: 00 09-01 23:59 :00 No [id number] 1 tablet BEDTIME 1 tablet BEDTIME (route: oral) Med Classific ation: Locomotor System meloxicam 15 mg tablet 08-05 00:00: 00 09-01 23:59 :00 No [id number] 1 tablet DAILY 1 tablet DAILY (route: oral) Med Classific ation: Analgesic , Anti-infl ammatory or Antipyret ic cyclobenzap rine 10 mg tablet 09-01 00:00: 00 12-31 23:59 :00 No [id number] 1 tablet BEDTIME 1 tablet BEDTIME (route: oral) Med Classific ation: Locomotor System meloxicam 15 mg tablet 09-01 00:00: 00 12-31 23:59 :00 No [id number] 1 tablet EVERY AM 1 tablet EVERY AM (route: oral) Med Classific ation: Analgesic , Anti-infl ammatory or Antipyret ic trazodone 50 mg tablet 09-01 00:00: 00 12-31 23:59 :00 No [id number] Per instruc tions BEDTIME Per instructio ns BEDTIME (route: oral) Med Classific ation: Central Nervous System Agents erythromyci n 5 mg/gram (0.5 %) eye ointment 2024-03 00:00: 00 Yes [id number] Per instruc tions 4 TIMES DAILY Per instructio ns 4 TIMES DAILY (route: ophthalmic (eye)) Med Classific ation: Ophthalmi c Agents albuterol sulfate HFA 90 mcg/actuati on aerosol inhaler 2024-03 00:00: 00 Yes [id number] 2 puff EVERY 6 HOURS 2 puff EVERY 6 HOURS (route: inhalation ) Med Classific ation: Respirato ry Therapy Agents bupropion HCl XL 300 mg 24 hr tablet, extended release 2024-03 00:00: 00 Yes [id number] 1 tablet EVERY AM 1 tablet EVERY AM (route: oral) Med Classific ation: Central Nervous System Agents carbidopa 25 mg-levodopa 100 mg disintegrat ing tablet 2024-03 00:00: 00 Yes [id number] 1.5 tablet NOON 1.5 tablet NOON (route: oral) Med Classific ation: Central Nervous System Agents carbidopa 25 mg-levodopa 100 mg tablet 2024-03 00:00: 00 Yes [id number] 1.5 tablet EVERY AM 1.5 tablet EVERY AM (route: oral) Med Classific ation: Central Nervous System Agents carbidopa 25 mg-levodopa 100 mg tablet 2024-03 00:00: 00 Yes [id number] 1.5 tablet EVERY PM 1.5 tablet EVERY PM (route: oral) Med Classific ation: Central Nervous System Agents carbidopa 25 mg-levodopa 100 mg tablet 2024-03 00:00: 00 Yes [id number] 1.5 tablet BEDTIME 1.5 tablet BEDTIME (route: oral) Med Classific ation: Central Nervous System Agents cyclobenzap rine 10 mg tablet 2024-03 00:00: 00 Yes [id number] 1 tablet BEDTIME 1 tablet BEDTIME (route: oral) Med Classific ation: Locomotor System famotidine 40 mg tablet 2024-03 00:00: 00 Yes [id number] 1 tablet EVERY AM 1 tablet EVERY AM (route: oral) Med Classific ation: Gastroint estinal Therapy Agents meloxicam 15 mg tablet 2024-03 00:00: 00 Yes [id number] 1 tablet EVERY AM 1 tablet EVERY AM (route: oral) Med Classific ation: Analgesic , Anti-infl ammatory or Antipyret ic paroxetine 40 mg tablet 2024-03 00:00: 00 Yes [id number] 1 tablet EVERY AM 1 tablet EVERY AM (route: oral) Med Classific ation: Central Nervous System Agents trazodone 50 mg tablet 2024-03 00:00: 00 Yes [id number] 1 tablet BEDTIME 1 tablet BEDTIME (route: oral) Med Classific ation: Central Nervous System Agents Tylenol Arthritis Pain 650 mg tablet,exte nded release 2024-03 0-23 00:00: 00 Yes [id number] 1 tablet EVERY 8 HOURS 1 tablet EVERY 8 HOURS (route: oral) Med Classific ation: Analgesic , Anti-infl ammatory or Antipyret ic Farxiga 5 mg tablet 2024-03 1-03 00:00: 00 Yes [id number] 1 tablet EVERY AM 1 tablet EVERY [...] AWARENESS FOR SAFETY AND WILL NOTIFY CLINICAL BALL MILL MIXER AND PHYSICIAN/PROVIDER WITH ANY CHANGE IN CONDITION. [code = SKILLED NURSE WILL MAINTAIN SITUATIONAL AWARENESS FOR SAFETY AND WILL NOTIFY CLINICAL BALL MILL MIXER AND PHYSICIAN/PROVIDER WITH ANY CHANGE IN CONDITION.] [...] CARE WILL BE ESTABLISHED THAT MEETS PATIENT'S RESIDENTIAL NEEDS AND INCLUDES PATIENT GOAL FOR HOME [...] CLEAN AND NEATLY DRESSED IN KITCHEN WITH MAJOR GIFTS DIRECTOR PRESENT D/T MOUSE PROBLEM. HER HOME IS [...] WITH HER MED PP PER HER MED INSURANCE BROKER AND DENIES ANY ADVERSE EFFECTS.</paragraph> Encounters Start Date/Time End Date/Time Encounter Type Admission Type Attending Clinicians Care Facility Care Department Encounter ID Discharge Date Discharge Status Discharge Condition Discharge Reason Percent Goals Met 2025-01-19 00:00:00 2025-03-19 00:00:00 Outpatient RECERTIFIC ATSNEHAL VELA [facility] [id number] 76.00
--- OUTSIDE RECORDS SUMMARY | 2025-03-18 19:00 | XMS_ITS | Clinical Summary ---
Author Organization Unknown Care Team Providers Care Management Psychologist Name Role Phone YAIMA RASMUSSEN, KAVITA BEST Unavailable Unamirella SPEARS RN, SNEHAL Unavailable Unavailable Payers Payer Name Policy Type Policy Number Effective Date Expira tion Date [employer] MEDICARE ADVANTAGE FFS [id number] MEDICARE - [place]GM [id number] Problems Condition Name Condition Details Condition Category [...] 06-25 00:00: 00 12-31 23:59 :00 No [id number] 2 puff DIRECTED 2 puff DIRECTED (route: inhalation ) Med Classific ation: Respirato ry Therapy Agents bupropion HCl XL 300 mg 24 hr tablet, extended release 06-25 00:00: 00 12-31 23:59 :00 No [id number] 1 tablet DAILY 1 tablet DAILY (route: oral) Med Classific ation: Central Nervous System Agents carbidopa 25 mg-levodopa 100 mg tablet 417 00:00: 00 12-31 23:59 :00 No [id number] 1.5 tablet 4 TIMES DAILY 1.5 tablet 4 TIMES DAILY (route: oral) Med Classific ation: Central Nervous System Agents famotidine 40 mg tablet 417 00:00: 00 09-01 23:59 :00 No [id number] 1 tablet DAILY 1 tablet DAILY (route: oral) Med Classific ation: Gastroint estinal Therapy Agents paroxetine 40 mg tablet 17 00:00: 00 12-31 23:59 :00 No [id number] 1 tablet DAILY 1 tablet DAILY (route: oral) Med Classific ation: Central Nervous System Agents trazodone 50 mg tablet 06-25 00:00: 00 09-01 23:59 :00 No [id number] Per instruc tions BEDTIME Per instructio ns BEDTIME (route: oral) Med Classific ation: Central Nervous System Agents gabapentin 100 mg capsule -24 00:00: 00 09-01 23:59 :00 No [id number] pain Per instruc tions BEDTIME Per instructio ns BEDTIME (route: oral) Med Classific ation: Central Nervous System Agents omeprazole 40 mg capsule,del ayed release -24 00:00: 00 05-20 23:59 :00 No [id number] 1 capsule DAILY 1 capsule DAILY (route: oral) Med Classific ation: Gastroint estinal Therapy Agents gabapentin 100 mg capsule 2023-03 0- 00:00: 00 09-01 23:59 :00 No [id number] Per instruc tions 2 TIMES DAILY Per instructio ns 2 TIMES DAILY (route: oral) Med Classific ation: Central Nervous System Agents famotidine 40 mg tablet 3-16 00:00: 00 12-31 23:59 :00 No [id number] 1 tablet EVERY AM 1 tablet EVERY AM (route: oral) Med Classific ation: Gastroint estinal Therapy Agents Tylenol Arthritis Pain 650 mg tablet,exte nded release 3-21 00:00: 00 12-31 23:59 :00 No [id number] 1 tablet EVERY 8 HOURS 1 tablet EVERY 8 HOURS (route: oral) Med Classific ation: Analgesic , Anti-infl ammatory or Antipyret ic cyclobenzap rine 10 mg tablet 08-05 00:00: 00 09-01 23:59 :00 No [id number] 1 tablet BEDTIME 1 tablet BEDTIME (route: oral) Med Classific ation: Locomotor System meloxicam 15 mg tablet 08-05 00:00: 00 09-01 23:59 :00 No [id number] 1 tablet DAILY 1 tablet DAILY (route: oral) Med Classific ation: Analgesic , Anti-infl ammatory or Antipyret ic cyclobenzap rine 10 mg tablet 09-01 00:00: 00 12-31 23:59 :00 No [id number] 1 tablet BEDTIME 1 tablet BEDTIME (route: oral) Med Classific ation: Locomotor System meloxicam 15 mg tablet 09-01 00:00: 00 12-31 23:59 :00 No [id number] 1 tablet EVERY AM 1 tablet EVERY AM (route: oral) Med Classific ation: Analgesic , Anti-infl ammatory or Antipyret ic trazodone 50 mg tablet 09-01 00:00: 00 12-31 23:59 :00 No [id number] Per instruc tions BEDTIME Per instructio ns BEDTIME (route: oral) Med Classific ation: Central Nervous System Agents erythromyci n 5 mg/gram (0.5 %) eye ointment 2024-03 00:00: 00 Yes [id number] Per instruc tions 4 TIMES DAILY Per instructio ns 4 TIMES DAILY (route: ophthalmic (eye)) Med Classific ation: Ophthalmi c Agents albuterol sulfate HFA 90 mcg/actuati on aerosol inhaler 2024-03 00:00: 00 Yes [id number] 2 puff EVERY 6 HOURS 2 puff EVERY 6 HOURS (route: inhalation ) Med Classific ation: Respirato ry Therapy Agents bupropion HCl XL 300 mg 24 hr tablet, extended release 2024-03 00:00: 00 Yes [id number] 1 tablet EVERY AM 1 tablet EVERY AM (route: oral) Med Classific ation: Central Nervous System Agents carbidopa 25 mg-levodopa 100 mg disintegrat ing tablet 2024-03 00:00: 00 Yes [id number] 1.5 tablet NOON 1.5 tablet NOON (route: oral) Med Classific ation: Central Nervous System Agents carbidopa 25 mg-levodopa 100 mg tablet 2024-03 00:00: 00 Yes [id number] 1.5 tablet EVERY AM 1.5 tablet EVERY AM (route: oral) Med Classific ation: Central Nervous System Agents carbidopa 25 mg-levodopa 100 mg tablet 2024-03 00:00: 00 Yes [id number] 1.5 tablet EVERY PM 1.5 tablet EVERY PM (route: oral) Med Classific ation: Central Nervous System Agents carbidopa 25 mg-levodopa 100 mg tablet 2024-03 00:00: 00 Yes [id number] 1.5 tablet BEDTIME 1.5 tablet BEDTIME (route: oral) Med Classific ation: Central Nervous System Agents cyclobenzap rine 10 mg tablet 2024-03 00:00: 00 Yes [id number] 1 tablet BEDTIME 1 tablet BEDTIME (route: oral) Med Classific ation: Locomotor System famotidine 40 mg tablet 2024-03 00:00: 00 Yes [id number] 1 tablet EVERY AM 1 tablet EVERY AM (route: oral) Med Classific ation: Gastroint estinal Therapy Agents meloxicam 15 mg tablet 2024-03 00:00: 00 Yes [id number] 1 tablet EVERY AM 1 tablet EVERY AM (route: oral) Med Classific ation: Analgesic , Anti-infl ammatory or Antipyret ic paroxetine 40 mg tablet 2024-03 00:00: 00 Yes [id number] 1 tablet EVERY AM 1 tablet EVERY AM (route: oral) Med Classific ation: Central Nervous System Agents trazodone 50 mg tablet 2024-03 00:00: 00 Yes [id number] 1 tablet BEDTIME 1 tablet BEDTIME (route: oral) Med Classific ation: Central Nervous System Agents Tylenol Arthritis Pain 650 mg tablet,exte nded release 2024-03 0-23 00:00: 00 Yes [id number] 1 tablet EVERY 8 HOURS 1 tablet EVERY 8 HOURS (route: oral) Med Classific ation: Analgesic , Anti-infl ammatory or Antipyret ic Farxiga 5 mg tablet 2024-03 1-03 00:00: 00 Yes [id number] 1 tablet EVERY AM 1 tablet EVERY [...] AWARENESS FOR SAFETY AND WILL NOTIFY CLINICAL NUMERICAL CONTROL OPERATOR AND PHYSICIAN/PROVIDER WITH ANY CHANGE IN CONDITION. [code = SKILLED NURSE WILL MAINTAIN SITUATIONAL AWARENESS FOR SAFETY AND WILL NOTIFY CLINICAL NUMERICAL CONTROL OPERATOR AND PHYSICIAN/PROVIDER WITH ANY CHANGE IN [...] CARE WILL BE ESTABLISHED THAT MEETS PATIENT'S [facility] NEEDS AND INCLUDES PATIENT GOAL FOR HOME [...] CLEAN AND NEATLY DRESSED IN KITCHEN WITH ROCKBOARD LATHER PRESENT D/T MOUSE PROBLEM. HER HOME IS [...] WITH HER MED PP PER HER MED COAL GETTER AND DENIES ANY ADVERSE EFFECTS.</paragraph> Encounters Start Date/Time End Date/Time Encounter Type Admission Type Attending Clinicians Care Facility Care Department Encounter ID Discharge Date Discharge Status Discharge Condition Discharge Reason Percent Goals Met 2025-01-19 00:00:00 2025-03-19 00:00:00 Outpatient RECERTIFIC ATSNEHAL VELA [facility] [id number] 76.00
--- OUTSIDE RECORDS SUMMARY | 2025-03-18 19:00 | XMS_ITS | Clinical Summary ---
Author Organization Unknown Care Team Providers Care Flipping Machine Operator Name Role Phone YAIMA RASMUSSEN, KAVITA BEST Unavailable Unamirella SPEARS RN, SNEHAL Unavailable Unavailable Payers Payer Name Policy Type Policy Number Effective Date Expira tion Date [employer] MEDICARE ADVANTAGE FFS [id number] MEDICARE - [place] PDGM [id number] Problems Condition Name Condition Details Condition Category [...] 06-25 00:00: 00 12-31 23:59 :00 No [id number] 2 puff DIRECTED 2 puff DIRECTED (route: inhalation ) Med Classific ation: Respirato ry Therapy Agents bupropion HCl XL 300 mg 24 hr tablet, extended release 06-25 00:00: 00 12-31 23:59 :00 No [id number] 1 tablet DAILY 1 tablet DAILY (route: oral) Med Classific ation: Central Nervous System Agents carbidopa 25 mg-levodopa 100 mg tablet 417 00:00: 00 12-31 23:59 :00 No [id number] 1.5 tablet 4 TIMES DAILY 1.5 tablet 4 TIMES DAILY (route: oral) Med Classific ation: Central Nervous System Agents famotidine 40 mg tablet 417 00:00: 00 09-01 23:59 :00 No [id number] 1 tablet DAILY 1 tablet DAILY (route: oral) Med Classific ation: Gastroint estinal Therapy Agents paroxetine 40 mg tablet 17 00:00: 00 12-31 23:59 :00 No [id number] 1 tablet DAILY 1 tablet DAILY (route: oral) Med Classific ation: Central Nervous System Agents trazodone 50 mg tablet 06-25 00:00: 00 09-01 23:59 :00 No [id number] Per instruc tions BEDTIME Per instructio ns BEDTIME (route: oral) Med Classific ation: Central Nervous System Agents gabapentin 100 mg capsule -24 00:00: 00 09-01 23:59 :00 No [id number] pain Per instruc tions BEDTIME Per instructio ns BEDTIME (route: oral) Med Classific ation: Central Nervous System Agents omeprazole 40 mg capsule,del ayed release -24 00:00: 00 05-20 23:59 :00 No [id number] 1 capsule DAILY 1 capsule DAILY (route: oral) Med Classific ation: Gastroint estinal Therapy Agents gabapentin 100 mg capsule 2023-03 0- 00:00: 00 09-01 23:59 :00 No [id number] Per instruc tions 2 TIMES DAILY Per instructio ns 2 TIMES DAILY (route: oral) Med Classific ation: Central Nervous System Agents famotidine 40 mg tablet 3-16 00:00: 00 12-31 23:59 :00 No [id number] 1 tablet EVERY AM 1 tablet EVERY AM (route: oral) Med Classific ation: Gastroint estinal Therapy Agents Tylenol Arthritis Pain 650 mg tablet,exte nded release 3-21 00:00: 00 12-31 23:59 :00 No [id number] 1 tablet EVERY 8 HOURS 1 tablet EVERY 8 HOURS (route: oral) Med Classific ation: Analgesic , Anti-infl ammatory or Antipyret ic cyclobenzap rine 10 mg tablet 08-05 00:00: 00 09-01 23:59 :00 No [id number] 1 tablet BEDTIME 1 tablet BEDTIME (route: oral) Med Classific ation: Locomotor System meloxicam 15 mg tablet 08-05 00:00: 00 09-01 23:59 :00 No [id number] 1 tablet DAILY 1 tablet DAILY (route: oral) Med Classific ation: Analgesic , Anti-infl ammatory or Antipyret ic cyclobenzap rine 10 mg tablet 09-01 00:00: 00 12-31 23:59 :00 No [id number] 1 tablet BEDTIME 1 tablet BEDTIME (route: oral) Med Classific ation: Locomotor System meloxicam 15 mg tablet 09-01 00:00: 00 12-31 23:59 :00 No [id number] 1 tablet EVERY AM 1 tablet EVERY AM (route: oral) Med Classific ation: Analgesic , Anti-infl ammatory or Antipyret ic trazodone 50 mg tablet 09-01 00:00: 00 12-31 23:59 :00 No [id number] Per instruc tions BEDTIME Per instructio ns BEDTIME (route: oral) Med Classific ation: Central Nervous System Agents erythromyci n 5 mg/gram (0.5 %) eye ointment 2024-03 00:00: 00 Yes [id number] Per instruc tions 4 TIMES DAILY Per instructio ns 4 TIMES DAILY (route: ophthalmic (eye)) Med Classific ation: Ophthalmi c Agents albuterol sulfate HFA 90 mcg/actuati on aerosol inhaler 2024-03 00:00: 00 Yes [id number] 2 puff EVERY 6 HOURS 2 puff EVERY 6 HOURS (route: inhalation ) Med Classific ation: Respirato ry Therapy Agents bupropion HCl XL 300 mg 24 hr tablet, extended release 2024-03 00:00: 00 Yes [id number] 1 tablet EVERY AM 1 tablet EVERY AM (route: oral) Med Classific ation: Central Nervous System Agents carbidopa 25 mg-levodopa 100 mg disintegrat ing tablet 2024-03 00:00: 00 Yes [id number] 1.5 tablet NOON 1.5 tablet NOON (route: oral) Med Classific ation: Central Nervous System Agents carbidopa 25 mg-levodopa 100 mg tablet 2024-03 00:00: 00 Yes [id number] 1.5 tablet EVERY AM 1.5 tablet EVERY AM (route: oral) Med Classific ation: Central Nervous System Agents carbidopa 25 mg-levodopa 100 mg tablet 2024-03 00:00: 00 Yes [id number] 1.5 tablet EVERY PM 1.5 tablet EVERY PM (route: oral) Med Classific ation: Central Nervous System Agents carbidopa 25 mg-levodopa 100 mg tablet 2024-03 00:00: 00 Yes [id number] 1.5 tablet BEDTIME 1.5 tablet BEDTIME (route: oral) Med Classific ation: Central Nervous System Agents cyclobenzap rine 10 mg tablet 2024-03 00:00: 00 Yes [id number] 1 tablet BEDTIME 1 tablet BEDTIME (route: oral) Med Classific ation: Locomotor System famotidine 40 mg tablet 2024-03 00:00: 00 Yes [id number] 1 tablet EVERY AM 1 tablet EVERY AM (route: oral) Med Classific ation: Gastroint estinal Therapy Agents meloxicam 15 mg tablet 2024-03 00:00: 00 Yes [id number] 1 tablet EVERY AM 1 tablet EVERY AM (route: oral) Med Classific ation: Analgesic , Anti-infl ammatory or Antipyret ic paroxetine 40 mg tablet 2024-03 00:00: 00 Yes [id number] 1 tablet EVERY AM 1 tablet EVERY AM (route: oral) Med Classific ation: Central Nervous System Agents trazodone 50 mg tablet 2024-03 00:00: 00 Yes [id number] 1 tablet BEDTIME 1 tablet BEDTIME (route: oral) Med Classific ation: Central Nervous System Agents Tylenol Arthritis Pain 650 mg tablet,exte nded release 2024-03 0-23 00:00: 00 Yes [id number] 1 tablet EVERY 8 HOURS 1 tablet EVERY 8 HOURS (route: oral) Med Classific ation: Analgesic , Anti-infl ammatory or Antipyret ic Farxiga 5 mg tablet 2024-03 1-03 00:00: 00 Yes [id number] 1 tablet EVERY AM 1 tablet EVERY [...] AWARENESS FOR SAFETY AND WILL NOTIFY CLINICAL ASSOCIATE PROFESSOR OF SOCIOLOGY AND PHYSICIAN/PROVIDER WITH ANY CHANGE IN CONDITION. [code = SKILLED NURSE WILL MAINTAIN SITUATIONAL AWARENESS FOR SAFETY AND WILL NOTIFY CLINICAL ASSOCIATE PROFESSOR OF SOCIOLOGY AND PHYSICIAN/PROVIDER WITH ANY CHANGE IN CONDITION.] [...] CLEAN AND NEATLY DRESSED IN KITCHEN WITH UTILITIES EQUIPMENT REPAIRER PRESENT D/T MOUSE PROBLEM. HER [...] WITH HER MED PP PER HER MED COVERING MACHINE TENDER AND DENIES ANY ADVERSE EFFECTS.</paragraph> Encounters Start Date/Time End Date/Time Encounter Type Admission Type Attending Clinicians Care Facility Care Department Encounter ID Discharge Date Discharge Status Discharge Condition Discharge Reason Percent Goals Met 2025-01-19 00:00:00 2025-03-19 00:00:00 Outpatient RECERTIFIC ATSNEHAL VELA [facility] [id number] 76.00
--- OUTSIDE RECORDS SUMMARY | 2025-03-18 19:00 | XMS_ITS | Clinical Summary ---
Author Organization Unknown Care Team Providers Care Grocery Shopper Name Role Phone YAIMA RASMUSSEN, KAVITA BEST Unavailable Unamirella SPEARS RN, SNEHAL Unavailable Unavailable Payers Payer Name Policy Type Policy Number Effective Date Expira tion Date [employer] MEDICARE ADVANTAGE FFS [id number] MEDICARE - [place] - PDGM [id number] Problems Condition Name Condition Details Condition Category [...] 06-25 00:00: 00 12-31 23:59 :00 No [id number] 2 puff DIRECTED 2 puff DIRECTED (route: inhalation ) Med Classific ation: Respirato ry Therapy Agents bupropion HCl XL 300 mg 24 hr tablet, extended release 06-25 00:00: 00 12-31 23:59 :00 No [id number] 1 tablet DAILY 1 tablet DAILY (route: oral) Med Classific ation: Central Nervous System Agents carbidopa 25 mg-levodopa 100 mg tablet 417 00:00: 00 12-31 23:59 :00 No [id number] 1.5 tablet 4 TIMES DAILY 1.5 tablet 4 TIMES DAILY (route: oral) Med Classific ation: Central Nervous System Agents famotidine 40 mg tablet 417 00:00: 00 09-01 23:59 :00 No [id number] 1 tablet DAILY 1 tablet DAILY (route: oral) Med Classific ation: Gastroint estinal Therapy Agents paroxetine 40 mg tablet 17 00:00: 00 12-31 23:59 :00 No [id number] 1 tablet DAILY 1 tablet DAILY (route: oral) Med Classific ation: Central Nervous System Agents trazodone 50 mg tablet 06-25 00:00: 00 09-01 23:59 :00 No [id number] Per instruc tions BEDTIME Per instructio ns BEDTIME (route: oral) Med Classific ation: Central Nervous System Agents gabapentin 100 mg capsule -24 00:00: 00 09-01 23:59 :00 No [id number] pain Per instruc tions BEDTIME Per instructio ns BEDTIME (route: oral) Med Classific ation: Central Nervous System Agents omeprazole 40 mg capsule,del ayed release -24 00:00: 00 05-20 23:59 :00 No [id number] 1 capsule DAILY 1 capsule DAILY (route: oral) Med Classific ation: Gastroint estinal Therapy Agents gabapentin 100 mg capsule 2023-03 0- 00:00: 00 09-01 23:59 :00 No [id number] Per instruc tions 2 TIMES DAILY Per instructio ns 2 TIMES DAILY (route: oral) Med Classific ation: Central Nervous System Agents famotidine 40 mg tablet 3-16 00:00: 00 12-31 23:59 :00 No [id number] 1 tablet EVERY AM 1 tablet EVERY AM (route: oral) Med Classific ation: Gastroint estinal Therapy Agents Tylenol Arthritis Pain 650 mg tablet,exte nded release 3-21 00:00: 00 12-31 23:59 :00 No [id number] 1 tablet EVERY 8 HOURS 1 tablet EVERY 8 HOURS (route: oral) Med Classific ation: Analgesic , Anti-infl ammatory or Antipyret ic cyclobenzap rine 10 mg tablet 08-05 00:00: 00 09-01 23:59 :00 No [id number] 1 tablet BEDTIME 1 tablet BEDTIME (route: oral) Med Classific ation: Locomotor System meloxicam 15 mg tablet 08-05 00:00: 00 09-01 23:59 :00 No [id number] 1 tablet DAILY 1 tablet DAILY (route: oral) Med Classific ation: Analgesic , Anti-infl ammatory or Antipyret ic cyclobenzap rine 10 mg tablet 09-01 00:00: 00 12-31 23:59 :00 No [id number] 1 tablet BEDTIME 1 tablet BEDTIME (route: oral) Med Classific ation: Locomotor System meloxicam 15 mg tablet 09-01 00:00: 00 12-31 23:59 :00 No [id number] 1 tablet EVERY AM 1 tablet EVERY AM (route: oral) Med Classific ation: Analgesic , Anti-infl ammatory or Antipyret ic trazodone 50 mg tablet 09-01 00:00: 00 12-31 23:59 :00 No [id number] Per instruc tions BEDTIME Per instructio ns BEDTIME (route: oral) Med Classific ation: Central Nervous System Agents erythromyci n 5 mg/gram (0.5 %) eye ointment 2024-03 00:00: 00 Yes [id number] Per instruc tions 4 TIMES DAILY Per instructio ns 4 TIMES DAILY (route: ophthalmic (eye)) Med Classific ation: Ophthalmi c Agents albuterol sulfate HFA 90 mcg/actuati on aerosol inhaler 2024-03 00:00: 00 Yes [id number] 2 puff EVERY 6 HOURS 2 puff EVERY 6 HOURS (route: inhalation ) Med Classific ation: Respirato ry Therapy Agents bupropion HCl XL 300 mg 24 hr tablet, extended release 2024-03 00:00: 00 Yes [id number] 1 tablet EVERY AM 1 tablet EVERY AM (route: oral) Med Classific ation: Central Nervous System Agents carbidopa 25 mg-levodopa 100 mg disintegrat ing tablet 2024-03 00:00: 00 Yes [id number] 1.5 tablet NOON 1.5 tablet NOON (route: oral) Med Classific ation: Central Nervous System Agents carbidopa 25 mg-levodopa 100 mg tablet 2024-03 00:00: 00 Yes [id number] 1.5 tablet EVERY AM 1.5 tablet EVERY AM (route: oral) Med Classific ation: Central Nervous System Agents carbidopa 25 mg-levodopa 100 mg tablet 2024-03 00:00: 00 Yes [id number] 1.5 tablet EVERY PM 1.5 tablet EVERY PM (route: oral) Med Classific ation: Central Nervous System Agents carbidopa 25 mg-levodopa 100 mg tablet 2024-03 00:00: 00 Yes [id number] 1.5 tablet BEDTIME 1.5 tablet BEDTIME (route: oral) Med Classific ation: Central Nervous System Agents cyclobenzap rine 10 mg tablet 2024-03 00:00: 00 Yes [id number] 1 tablet BEDTIME 1 tablet BEDTIME (route: oral) Med Classific ation: Locomotor System famotidine 40 mg tablet 2024-03 00:00: 00 Yes [id number] 1 tablet EVERY AM 1 tablet EVERY AM (route: oral) Med Classific ation: Gastroint estinal Therapy Agents meloxicam 15 mg tablet 2024-03 00:00: 00 Yes [id number] 1 tablet EVERY AM 1 tablet EVERY AM (route: oral) Med Classific ation: Analgesic , Anti-infl ammatory or Antipyret ic paroxetine 40 mg tablet 2024-03 00:00: 00 Yes [id number] 1 tablet EVERY AM 1 tablet EVERY AM (route: oral) Med Classific ation: Central Nervous System Agents trazodone 50 mg tablet 2024-03 00:00: 00 Yes [id number] 1 tablet BEDTIME 1 tablet BEDTIME (route: oral) Med Classific ation: Central Nervous System Agents Tylenol Arthritis Pain 650 mg tablet,exte nded release 2024-03 0-23 00:00: 00 Yes [id number] 1 tablet EVERY 8 HOURS 1 tablet EVERY 8 HOURS (route: oral) Med Classific ation: Analgesic , Anti-infl ammatory or Antipyret ic Farxiga 5 mg tablet 2024-03 1-03 00:00: 00 Yes [id number] 1 tablet EVERY AM 1 tablet EVERY [...] AWARENESS FOR SAFETY AND WILL NOTIFY CLINICAL CASH MANAGER AND PHYSICIAN/PROVIDER WITH ANY CHANGE IN CONDITION. [code = SKILLED NURSE WILL MAINTAIN SITUATIONAL AWARENESS FOR SAFETY AND WILL NOTIFY CLINICAL CASH MANAGER AND PHYSICIAN/PROVIDER WITH ANY CHANGE IN [...] CLEAN AND NEATLY DRESSED IN KITCHEN WITH HELIARC WELDER PRESENT D/T MOUSE PROBLEM. 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
--- OUTSIDE RECORDS SUMMARY | 2025-03-18 19:00 | XMS_ITS | Clinical Summary ---
Author Organization Unknown Care Team Providers Care Bean Sorter Name Role Phone YAIMA RASMUSSEN, KAVITA BEST Unavailable Unamirella SPEARS RN, SNEHAL Unavailable Unavailable Payers Payer Name Policy Type Policy Number Effective Date Expira tion Date [employer] MEDICARE ADVANTAGE FFS [id number] MEDICARE - [place]GM [id number] Problems Condition Name Condition Details Condition Category [...] 06-25 00:00: 00 12-31 23:59 :00 No [id number] 2 puff DIRECTED 2 puff DIRECTED (route: inhalation ) Med Classific ation: Respirato ry Therapy Agents bupropion HCl XL 300 mg 24 hr tablet, extended release 06-25 00:00: 00 12-31 23:59 :00 No [id number] 1 tablet DAILY 1 tablet DAILY (route: oral) Med Classific ation: Central Nervous System Agents carbidopa 25 mg-levodopa 100 mg tablet 417 00:00: 00 12-31 23:59 :00 No [id number] 1.5 tablet 4 TIMES DAILY 1.5 tablet 4 TIMES DAILY (route: oral) Med Classific ation: Central Nervous System Agents famotidine 40 mg tablet 417 00:00: 00 09-01 23:59 :00 No [id number] 1 tablet DAILY 1 tablet DAILY (route: oral) Med Classific ation: Gastroint estinal Therapy Agents paroxetine 40 mg tablet 17 00:00: 00 12-31 23:59 :00 No [id number] 1 tablet DAILY 1 tablet DAILY (route: oral) Med Classific ation: Central Nervous System Agents trazodone 50 mg tablet 06-25 00:00: 00 09-01 23:59 :00 No [id number] Per instruc tions BEDTIME Per instructio ns BEDTIME (route: oral) Med Classific ation: Central Nervous System Agents gabapentin 100 mg capsule -24 00:00: 00 09-01 23:59 :00 No [id number] pain Per instruc tions BEDTIME Per instructio ns BEDTIME (route: oral) Med Classific ation: Central Nervous System Agents omeprazole 40 mg capsule,del ayed release -24 00:00: 00 05-20 23:59 :00 No [id number] 1 capsule DAILY 1 capsule DAILY (route: oral) Med Classific ation: Gastroint estinal Therapy Agents gabapentin 100 mg capsule 2023-03 0- 00:00: 00 09-01 23:59 :00 No [id number] Per instruc tions 2 TIMES DAILY Per instructio ns 2 TIMES DAILY (route: oral) Med Classific ation: Central Nervous System Agents famotidine 40 mg tablet 3-16 00:00: 00 12-31 23:59 :00 No [id number] 1 tablet EVERY AM 1 tablet EVERY AM (route: oral) Med Classific ation: Gastroint estinal Therapy Agents Tylenol Arthritis Pain 650 mg tablet,exte nded release 3-21 00:00: 00 12-31 23:59 :00 No [id number] 1 tablet EVERY 8 HOURS 1 tablet EVERY 8 HOURS (route: oral) Med Classific ation: Analgesic , Anti-infl ammatory or Antipyret ic cyclobenzap rine 10 mg tablet 08-05 00:00: 00 09-01 23:59 :00 No [id number] 1 tablet BEDTIME 1 tablet BEDTIME (route: oral) Med Classific ation: Locomotor System meloxicam 15 mg tablet 08-05 00:00: 00 09-01 23:59 :00 No [id number] 1 tablet DAILY 1 tablet DAILY (route: oral) Med Classific ation: Analgesic , Anti-infl ammatory or Antipyret ic cyclobenzap rine 10 mg tablet 09-01 00:00: 00 12-31 23:59 :00 No [id number] 1 tablet BEDTIME 1 tablet BEDTIME (route: oral) Med Classific ation: Locomotor System meloxicam 15 mg tablet 09-01 00:00: 00 12-31 23:59 :00 No [id number] 1 tablet EVERY AM 1 tablet EVERY AM (route: oral) Med Classific ation: Analgesic , Anti-infl ammatory or Antipyret ic trazodone 50 mg tablet 09-01 00:00: 00 12-31 23:59 :00 No [id number] Per instruc tions BEDTIME Per instructio ns BEDTIME (route: oral) Med Classific ation: Central Nervous System Agents erythromyci n 5 mg/gram (0.5 %) eye ointment 2024-03 00:00: 00 Yes [id number] Per instruc tions 4 TIMES DAILY Per instructio ns 4 TIMES DAILY (route: ophthalmic (eye)) Med Classific ation: Ophthalmi c Agents albuterol sulfate HFA 90 mcg/actuati on aerosol inhaler 2024-03 00:00: 00 Yes [id number] 2 puff EVERY 6 HOURS 2 puff EVERY 6 HOURS (route: inhalation ) Med Classific ation: Respirato ry Therapy Agents bupropion HCl XL 300 mg 24 hr tablet, extended release 2024-03 00:00: 00 Yes [id number] 1 tablet EVERY AM 1 tablet EVERY AM (route: oral) Med Classific ation: Central Nervous System Agents carbidopa 25 mg-levodopa 100 mg disintegrat ing tablet 2024-03 00:00: 00 Yes [id number] 1.5 tablet NOON 1.5 tablet NOON (route: oral) Med Classific ation: Central Nervous System Agents carbidopa 25 mg-levodopa 100 mg tablet 2024-03 00:00: 00 Yes [id number] 1.5 tablet EVERY AM 1.5 tablet EVERY AM (route: oral) Med Classific ation: Central Nervous System Agents carbidopa 25 mg-levodopa 100 mg tablet 2024-03 00:00: 00 Yes [id number] 1.5 tablet EVERY PM 1.5 tablet EVERY PM (route: oral) Med Classific ation: Central Nervous System Agents carbidopa 25 mg-levodopa 100 mg tablet 2024-03 00:00: 00 Yes [id number] 1.5 tablet BEDTIME 1.5 tablet BEDTIME (route: oral) Med Classific ation: Central Nervous System Agents cyclobenzap rine 10 mg tablet 2024-03 00:00: 00 Yes [id number] 1 tablet BEDTIME 1 tablet BEDTIME (route: oral) Med Classific ation: Locomotor System famotidine 40 mg tablet 2024-03 00:00: 00 Yes [id number] 1 tablet EVERY AM 1 tablet EVERY AM (route: oral) Med Classific ation: Gastroint estinal Therapy Agents meloxicam 15 mg tablet 2024-03 00:00: 00 Yes [id number] 1 tablet EVERY AM 1 tablet EVERY AM (route: oral) Med Classific ation: Analgesic , Anti-infl ammatory or Antipyret ic paroxetine 40 mg tablet 2024-03 00:00: 00 Yes [id number] 1 tablet EVERY AM 1 tablet EVERY AM (route: oral) Med Classific ation: Central Nervous System Agents trazodone 50 mg tablet 2024-03 00:00: 00 Yes [id number] 1 tablet BEDTIME 1 tablet BEDTIME (route: oral) Med Classific ation: Central Nervous System Agents Tylenol Arthritis Pain 650 mg tablet,exte nded release 2024-03 0-23 00:00: 00 Yes [id number] 1 tablet EVERY 8 HOURS 1 tablet EVERY 8 HOURS (route: oral) Med Classific ation: Analgesic , Anti-infl ammatory or Antipyret ic Farxiga 5 mg tablet 2024-03 1-03 00:00: 00 Yes [id number] 1 tablet EVERY AM 1 tablet EVERY [...] FOR SAFETY AND WILL NOTIFY CLINICAL DIRECTOR SHOPPER MARKETING AND PHYSICIAN/PROVIDER WITH ANY CHANGE IN CONDITION. [code = SKILLED NURSE WILL MAINTAIN SITUATIONAL AWARENESS FOR SAFETY AND WILL NOTIFY CLINICAL DIRECTOR SHOPPER MARKETING AND PHYSICIAN/PROVIDER WITH ANY CHANGE IN CONDITION.] [...] CARE WILL BE ESTABLISHED THAT MEETS PATIENT'S FPC NEEDS AND INCLUDES PATIENT GOAL FOR HOME [...] CLEAN AND NEATLY DRESSED IN KITCHEN WITH MANAGEMENT AND BUDGET ANALYST PRESENT D/T MOUSE PROBLEM. 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
--- OUTSIDE RECORDS SUMMARY | 2025-03-18 19:00 | XMS_ITS | Clinical Summary ---
Author Organization Unknown Care Team Providers Care Practice Support Specialist Name Role Phone YAIMA RASMUSSEN, KAVITA BEST Unavailable Unamirella SPEARS RN, SNEHAL Unavailable Unavailable Payers Payer Name Policy Type Policy Number Effective Date Expira tion Date [employer] MEDICARE ADVANTAGE FFS [id number] MEDICARE - [place] - PDGM [id number] Problems Condition Name Condition Details Condition Category [...] 06-25 00:00: 00 12-31 23:59 :00 No [id number] 2 puff DIRECTED 2 puff DIRECTED (route: inhalation ) Med Classific ation: Respirato ry Therapy Agents bupropion HCl XL 300 mg 24 hr tablet, extended release 06-25 00:00: 00 12-31 23:59 :00 No [id number] 1 tablet DAILY 1 tablet DAILY (route: oral) Med Classific ation: Central Nervous System Agents carbidopa 25 mg-levodopa 100 mg tablet 417 00:00: 00 12-31 23:59 :00 No [id number] 1.5 tablet 4 TIMES DAILY 1.5 tablet 4 TIMES DAILY (route: oral) Med Classific ation: Central Nervous System Agents famotidine 40 mg tablet 417 00:00: 00 09-01 23:59 :00 No [id number] 1 tablet DAILY 1 tablet DAILY (route: oral) Med Classific ation: Gastroint estinal Therapy Agents paroxetine 40 mg tablet 17 00:00: 00 12-31 23:59 :00 No [id number] 1 tablet DAILY 1 tablet DAILY (route: oral) Med Classific ation: Central Nervous System Agents trazodone 50 mg tablet 06-25 00:00: 00 09-01 23:59 :00 No [id number] Per instruc tions BEDTIME Per instructio ns BEDTIME (route: oral) Med Classific ation: Central Nervous System Agents gabapentin 100 mg capsule -24 00:00: 00 09-01 23:59 :00 No [id number] pain Per instruc tions BEDTIME Per instructio ns BEDTIME (route: oral) Med Classific ation: Central Nervous System Agents omeprazole 40 mg capsule,del ayed release -24 00:00: 00 05-20 23:59 :00 No [id number] 1 capsule DAILY 1 capsule DAILY (route: oral) Med Classific ation: Gastroint estinal Therapy Agents gabapentin 100 mg capsule 2023-03 0- 00:00: 00 09-01 23:59 :00 No [id number] Per instruc tions 2 TIMES DAILY Per instructio ns 2 TIMES DAILY (route: oral) Med Classific ation: Central Nervous System Agents famotidine 40 mg tablet 3-16 00:00: 00 12-31 23:59 :00 No [id number] 1 tablet EVERY AM 1 tablet EVERY AM (route: oral) Med Classific ation: Gastroint estinal Therapy Agents Tylenol Arthritis Pain 650 mg tablet,exte nded release 3-21 00:00: 00 12-31 23:59 :00 No [id number] 1 tablet EVERY 8 HOURS 1 tablet EVERY 8 HOURS (route: oral) Med Classific ation: Analgesic , Anti-infl ammatory or Antipyret ic cyclobenzap rine 10 mg tablet 08-05 00:00: 00 09-01 23:59 :00 No [id number] 1 tablet BEDTIME 1 tablet BEDTIME (route: oral) Med Classific ation: Locomotor System meloxicam 15 mg tablet 08-05 00:00: 00 09-01 23:59 :00 No [id number] 1 tablet DAILY 1 tablet DAILY (route: oral) Med Classific ation: Analgesic , Anti-infl ammatory or Antipyret ic cyclobenzap rine 10 mg tablet 09-01 00:00: 00 12-31 23:59 :00 No [id number] 1 tablet BEDTIME 1 tablet BEDTIME (route: oral) Med Classific ation: Locomotor System meloxicam 15 mg tablet 09-01 00:00: 00 12-31 23:59 :00 No [id number] 1 tablet EVERY AM 1 tablet EVERY AM (route: oral) Med Classific ation: Analgesic , Anti-infl ammatory or Antipyret ic trazodone 50 mg tablet 09-01 00:00: 00 12-31 23:59 :00 No [id number] Per instruc tions BEDTIME Per instructio ns BEDTIME (route: oral) Med Classific ation: Central Nervous System Agents erythromyci n 5 mg/gram (0.5 %) eye ointment 2024-03 00:00: 00 Yes [id number] Per instruc tions 4 TIMES DAILY Per instructio ns 4 TIMES DAILY (route: ophthalmic (eye)) Med Classific ation: Ophthalmi c Agents albuterol sulfate HFA 90 mcg/actuati on aerosol inhaler 2024-03 00:00: 00 Yes [id number] 2 puff EVERY 6 HOURS 2 puff EVERY 6 HOURS (route: inhalation ) Med Classific ation: Respirato ry Therapy Agents bupropion HCl XL 300 mg 24 hr tablet, extended release 2024-03 00:00: 00 Yes [id number] 1 tablet EVERY AM 1 tablet EVERY AM (route: oral) Med Classific ation: Central Nervous System Agents carbidopa 25 mg-levodopa 100 mg disintegrat ing tablet 2024-03 00:00: 00 Yes [id number] 1.5 tablet NOON 1.5 tablet NOON (route: oral) Med Classific ation: Central Nervous System Agents carbidopa 25 mg-levodopa 100 mg tablet 2024-03 00:00: 00 Yes [id number] 1.5 tablet EVERY AM 1.5 tablet EVERY AM (route: oral) Med Classific ation: Central Nervous System Agents carbidopa 25 mg-levodopa 100 mg tablet 2024-03 00:00: 00 Yes [id number] 1.5 tablet EVERY PM 1.5 tablet EVERY PM (route: oral) Med Classific ation: Central Nervous System Agents carbidopa 25 mg-levodopa 100 mg tablet 2024-03 00:00: 00 Yes [id number] 1.5 tablet BEDTIME 1.5 tablet BEDTIME (route: oral) Med Classific ation: Central Nervous System Agents cyclobenzap rine 10 mg tablet 2024-03 00:00: 00 Yes [id number] 1 tablet BEDTIME 1 tablet BEDTIME (route: oral) Med Classific ation: Locomotor System famotidine 40 mg tablet 2024-03 00:00: 00 Yes [id number] 1 tablet EVERY AM 1 tablet EVERY AM (route: oral) Med Classific ation: Gastroint estinal Therapy Agents meloxicam 15 mg tablet 2024-03 00:00: 00 Yes [id number] 1 tablet EVERY AM 1 tablet EVERY AM (route: oral) Med Classific ation: Analgesic , Anti-infl ammatory or Antipyret ic paroxetine 40 mg tablet 2024-03 00:00: 00 Yes [id number] 1 tablet EVERY AM 1 tablet EVERY AM (route: oral) Med Classific ation: Central Nervous System Agents trazodone 50 mg tablet 2024-03 00:00: 00 Yes [id number] 1 tablet BEDTIME 1 tablet BEDTIME (route: oral) Med Classific ation: Central Nervous System Agents Tylenol Arthritis Pain 650 mg tablet,exte nded release 2024-03 0-23 00:00: 00 Yes [id number] 1 tablet EVERY 8 HOURS 1 tablet EVERY 8 HOURS (route: oral) Med Classific ation: Analgesic , Anti-infl ammatory or Antipyret ic Farxiga 5 mg tablet 2024-03 1-03 00:00: 00 Yes [id number] 1 tablet EVERY AM 1 tablet EVERY [...] AWARENESS FOR SAFETY AND WILL NOTIFY CLINICAL CREDENTIALING MANAGER AND PHYSICIAN/PROVIDER WITH ANY CHANGE IN CONDITION. [code = SKILLED NURSE WILL MAINTAIN SITUATIONAL AWARENESS FOR SAFETY AND WILL NOTIFY CLINICAL CREDENTIALING MANAGER AND PHYSICIAN/PROVIDER WITH ANY CHANGE IN [...] CLEAN AND NEATLY DRESSED IN KITCHEN WITH CUSTOMER SUCCESS DIRECTOR PRESENT D/T MOUSE PROBLEM. 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
--- OUTSIDE RECORDS SUMMARY | 2025-03-18 19:00 | XMS_ITS | Clinical Summary ---
Author Organization Unknown Care Team Providers Care Snow Ranger Name Role Phone YAIMA RASMUSSEN, KAVITA BEST Unavailable Unamirella SPEARS RN, SNEHAL Unavailable Unavailable Payers Payer Name Policy Type Policy Number Effective Date Expira tion Date [employer] MEDICARE ADVANTAGE FFS [id number] MEDICARE - [place] PDGM [id number] Problems Condition Name Condition Details Condition Category [...] 06-25 00:00: 00 12-31 23:59 :00 No [id number] 2 puff DIRECTED 2 puff DIRECTED (route: inhalation ) Med Classific ation: Respirato ry Therapy Agents bupropion HCl XL 300 mg 24 hr tablet, extended release 06-25 00:00: 00 12-31 23:59 :00 No [id number] 1 tablet DAILY 1 tablet DAILY (route: oral) Med Classific ation: Central Nervous System Agents carbidopa 25 mg-levodopa 100 mg tablet 417 00:00: 00 12-31 23:59 :00 No [id number] 1.5 tablet 4 TIMES DAILY 1.5 tablet 4 TIMES DAILY (route: oral) Med Classific ation: Central Nervous System Agents famotidine 40 mg tablet 417 00:00: 00 09-01 23:59 :00 No [id number] 1 tablet DAILY 1 tablet DAILY (route: oral) Med Classific ation: Gastroint estinal Therapy Agents paroxetine 40 mg tablet 17 00:00: 00 12-31 23:59 :00 No [id number] 1 tablet DAILY 1 tablet DAILY (route: oral) Med Classific ation: Central Nervous System Agents trazodone 50 mg tablet 06-25 00:00: 00 09-01 23:59 :00 No [id number] Per instruc tions BEDTIME Per instructio ns BEDTIME (route: oral) Med Classific ation: Central Nervous System Agents gabapentin 100 mg capsule -24 00:00: 00 09-01 23:59 :00 No [id number] pain Per instruc tions BEDTIME Per instructio ns BEDTIME (route: oral) Med Classific ation: Central Nervous System Agents omeprazole 40 mg capsule,del ayed release -24 00:00: 00 05-20 23:59 :00 No [id number] 1 capsule DAILY 1 capsule DAILY (route: oral) Med Classific ation: Gastroint estinal Therapy Agents gabapentin 100 mg capsule 2023-03 0- 00:00: 00 09-01 23:59 :00 No [id number] Per instruc tions 2 TIMES DAILY Per instructio ns 2 TIMES DAILY (route: oral) Med Classific ation: Central Nervous System Agents famotidine 40 mg tablet 3-16 00:00: 00 12-31 23:59 :00 No [id number] 1 tablet EVERY AM 1 tablet EVERY AM (route: oral) Med Classific ation: Gastroint estinal Therapy Agents Tylenol Arthritis Pain 650 mg tablet,exte nded release 3-21 00:00: 00 12-31 23:59 :00 No [id number] 1 tablet EVERY 8 HOURS 1 tablet EVERY 8 HOURS (route: oral) Med Classific ation: Analgesic , Anti-infl ammatory or Antipyret ic cyclobenzap rine 10 mg tablet 08-05 00:00: 00 09-01 23:59 :00 No [id number] 1 tablet BEDTIME 1 tablet BEDTIME (route: oral) Med Classific ation: Locomotor System meloxicam 15 mg tablet 08-05 00:00: 00 09-01 23:59 :00 No [id number] 1 tablet DAILY 1 tablet DAILY (route: oral) Med Classific ation: Analgesic , Anti-infl ammatory or Antipyret ic cyclobenzap rine 10 mg tablet 09-01 00:00: 00 12-31 23:59 :00 No [id number] 1 tablet BEDTIME 1 tablet BEDTIME (route: oral) Med Classific ation: Locomotor System meloxicam 15 mg tablet 09-01 00:00: 00 12-31 23:59 :00 No [id number] 1 tablet EVERY AM 1 tablet EVERY AM (route: oral) Med Classific ation: Analgesic , Anti-infl ammatory or Antipyret ic trazodone 50 mg tablet 09-01 00:00: 00 12-31 23:59 :00 No [id number] Per instruc tions BEDTIME Per instructio ns BEDTIME (route: oral) Med Classific ation: Central Nervous System Agents erythromyci n 5 mg/gram (0.5 %) eye ointment 2024-03 00:00: 00 Yes [id number] Per instruc tions 4 TIMES DAILY Per instructio ns 4 TIMES DAILY (route: ophthalmic (eye)) Med Classific ation: Ophthalmi c Agents albuterol sulfate HFA 90 mcg/actuati on aerosol inhaler 2024-03 00:00: 00 Yes [id number] 2 puff EVERY 6 HOURS 2 puff EVERY 6 HOURS (route: inhalation ) Med Classific ation: Respirato ry Therapy Agents bupropion HCl XL 300 mg 24 hr tablet, extended release 2024-03 00:00: 00 Yes [id number] 1 tablet EVERY AM 1 tablet EVERY AM (route: oral) Med Classific ation: Central Nervous System Agents carbidopa 25 mg-levodopa 100 mg disintegrat ing tablet 2024-03 00:00: 00 Yes [id number] 1.5 tablet NOON 1.5 tablet NOON (route: oral) Med Classific ation: Central Nervous System Agents carbidopa 25 mg-levodopa 100 mg tablet 2024-03 00:00: 00 Yes [id number] 1.5 tablet EVERY AM 1.5 tablet EVERY AM (route: oral) Med Classific ation: Central Nervous System Agents carbidopa 25 mg-levodopa 100 mg tablet 2024-03 00:00: 00 Yes [id number] 1.5 tablet EVERY PM 1.5 tablet EVERY PM (route: oral) Med Classific ation: Central Nervous System Agents carbidopa 25 mg-levodopa 100 mg tablet 2024-03 00:00: 00 Yes [id number] 1.5 tablet BEDTIME 1.5 tablet BEDTIME (route: oral) Med Classific ation: Central Nervous System Agents cyclobenzap rine 10 mg tablet 2024-03 00:00: 00 Yes [id number] 1 tablet BEDTIME 1 tablet BEDTIME (route: oral) Med Classific ation: Locomotor System famotidine 40 mg tablet 2024-03 00:00: 00 Yes [id number] 1 tablet EVERY AM 1 tablet EVERY AM (route: oral) Med Classific ation: Gastroint estinal Therapy Agents meloxicam 15 mg tablet 2024-03 00:00: 00 Yes [id number] 1 tablet EVERY AM 1 tablet EVERY AM (route: oral) Med Classific ation: Analgesic , Anti-infl ammatory or Antipyret ic paroxetine 40 mg tablet 2024-03 00:00: 00 Yes [id number] 1 tablet EVERY AM 1 tablet EVERY AM (route: oral) Med Classific ation: Central Nervous System Agents trazodone 50 mg tablet 2024-03 00:00: 00 Yes [id number] 1 tablet BEDTIME 1 tablet BEDTIME (route: oral) Med Classific ation: Central Nervous System Agents Tylenol Arthritis Pain 650 mg tablet,exte nded release 2024-03 0-23 00:00: 00 Yes [id number] 1 tablet EVERY 8 HOURS 1 tablet EVERY 8 HOURS (route: oral) Med Classific ation: Analgesic , Anti-infl ammatory or Antipyret ic Farxiga 5 mg tablet 2024-03 1-03 00:00: 00 Yes [id number] 1 tablet EVERY AM 1 tablet EVERY [...] AWARENESS FOR SAFETY AND WILL NOTIFY CLINICAL SERVICE DESK ANALYST AND PHYSICIAN/PROVIDER WITH ANY CHANGE IN CONDITION. [code = SKILLED NURSE WILL MAINTAIN SITUATIONAL AWARENESS FOR SAFETY AND WILL NOTIFY CLINICAL SERVICE DESK ANALYST AND PHYSICIAN/PROVIDER WITH ANY CHANGE IN CONDITION.] [...] CLEAN AND NEATLY DRESSED IN KITCHEN WITH CRYPTOZOOLOGIST PRESENT D/T MOUSE PROBLEM. HER HOME IS [...] WITH HER MED PP PER HER MED CAMERA SUPERVISOR AND DENIES ANY ADVERSE EFFECTS.</paragraph> Encounters Start Date/Time End Date/Time Encounter Type Admission Type Attending Clinicians Care Facility Care Department Encounter ID Discharge Date Discharge Status Discharge Condition Discharge Reason Percent Goals Met 2025-01-19 00:00:00 2025-03-19 00:00:00 Outpatient RECERTIFIC ATSNEHAL VELA [facility] [id number] 76.00
--- OUTSIDE RECORDS SUMMARY | 2025-03-18 19:00 | XMS_ITS | Clinical Summary ---
Author Organization Unknown Care Team Providers Care Flying Squad Salesperson Name Role Phone YAIMA RASMUSSEN, KAVITA BEST Unavailable Unamirella SPEARS RN, SNEHAL Unavailable Unavailable Payers Payer Name Policy Type Policy Number Effective Date Expira tion Date [employer] MEDICARE ADVANTAGE FFS [id number] MEDICARE - [place]GM [id number] Problems Condition Name Condition Details Condition Category [...] 06-25 00:00: 00 12-31 23:59 :00 No [id number] 2 puff DIRECTED 2 puff DIRECTED (route: inhalation ) Med Classific ation: Respirato ry Therapy Agents bupropion HCl XL 300 mg 24 hr tablet, extended release 06-25 00:00: 00 12-31 23:59 :00 No [id number] 1 tablet DAILY 1 tablet DAILY (route: oral) Med Classific ation: Central Nervous System Agents carbidopa 25 mg-levodopa 100 mg tablet 417 00:00: 00 12-31 23:59 :00 No [id number] 1.5 tablet 4 TIMES DAILY 1.5 tablet 4 TIMES DAILY (route: oral) Med Classific ation: Central Nervous System Agents famotidine 40 mg tablet 417 00:00: 00 09-01 23:59 :00 No [id number] 1 tablet DAILY 1 tablet DAILY (route: oral) Med Classific ation: Gastroint estinal Therapy Agents paroxetine 40 mg tablet 17 00:00: 00 12-31 23:59 :00 No [id number] 1 tablet DAILY 1 tablet DAILY (route: oral) Med Classific ation: Central Nervous System Agents trazodone 50 mg tablet 06-25 00:00: 00 09-01 23:59 :00 No [id number] Per instruc tions BEDTIME Per instructio ns BEDTIME (route: oral) Med Classific ation: Central Nervous System Agents gabapentin 100 mg capsule -24 00:00: 00 09-01 23:59 :00 No [id number] pain Per instruc tions BEDTIME Per instructio ns BEDTIME (route: oral) Med Classific ation: Central Nervous System Agents omeprazole 40 mg capsule,del ayed release -24 00:00: 00 05-20 23:59 :00 No [id number] 1 capsule DAILY 1 capsule DAILY (route: oral) Med Classific ation: Gastroint estinal Therapy Agents gabapentin 100 mg capsule 2023-03 0- 00:00: 00 09-01 23:59 :00 No [id number] Per instruc tions 2 TIMES DAILY Per instructio ns 2 TIMES DAILY (route: oral) Med Classific ation: Central Nervous System Agents famotidine 40 mg tablet 3-16 00:00: 00 12-31 23:59 :00 No [id number] 1 tablet EVERY AM 1 tablet EVERY AM (route: oral) Med Classific ation: Gastroint estinal Therapy Agents Tylenol Arthritis Pain 650 mg tablet,exte nded release 3-21 00:00: 00 12-31 23:59 :00 No [id number] 1 tablet EVERY 8 HOURS 1 tablet EVERY 8 HOURS (route: oral) Med Classific ation: Analgesic , Anti-infl ammatory or Antipyret ic cyclobenzap rine 10 mg tablet 08-05 00:00: 00 09-01 23:59 :00 No [id number] 1 tablet BEDTIME 1 tablet BEDTIME (route: oral) Med Classific ation: Locomotor System meloxicam 15 mg tablet 08-05 00:00: 00 09-01 23:59 :00 No [id number] 1 tablet DAILY 1 tablet DAILY (route: oral) Med Classific ation: Analgesic , Anti-infl ammatory or Antipyret ic cyclobenzap rine 10 mg tablet 09-01 00:00: 00 12-31 23:59 :00 No [id number] 1 tablet BEDTIME 1 tablet BEDTIME (route: oral) Med Classific ation: Locomotor System meloxicam 15 mg tablet 09-01 00:00: 00 12-31 23:59 :00 No [id number] 1 tablet EVERY AM 1 tablet EVERY AM (route: oral) Med Classific ation: Analgesic , Anti-infl ammatory or Antipyret ic trazodone 50 mg tablet 09-01 00:00: 00 12-31 23:59 :00 No [id number] Per instruc tions BEDTIME Per instructio ns BEDTIME (route: oral) Med Classific ation: Central Nervous System Agents erythromyci n 5 mg/gram (0.5 %) eye ointment 2024-03 00:00: 00 Yes [id number] Per instruc tions 4 TIMES DAILY Per instructio ns 4 TIMES DAILY (route: ophthalmic (eye)) Med Classific ation: Ophthalmi c Agents albuterol sulfate HFA 90 mcg/actuati on aerosol inhaler 2024-03 00:00: 00 Yes [id number] 2 puff EVERY 6 HOURS 2 puff EVERY 6 HOURS (route: inhalation ) Med Classific ation: Respirato ry Therapy Agents bupropion HCl XL 300 mg 24 hr tablet, extended release 2024-03 00:00: 00 Yes [id number] 1 tablet EVERY AM 1 tablet EVERY AM (route: oral) Med Classific ation: Central Nervous System Agents carbidopa 25 mg-levodopa 100 mg disintegrat ing tablet 2024-03 00:00: 00 Yes [id number] 1.5 tablet NOON 1.5 tablet NOON (route: oral) Med Classific ation: Central Nervous System Agents carbidopa 25 mg-levodopa 100 mg tablet 2024-03 00:00: 00 Yes [id number] 1.5 tablet EVERY AM 1.5 tablet EVERY AM (route: oral) Med Classific ation: Central Nervous System Agents carbidopa 25 mg-levodopa 100 mg tablet 2024-03 00:00: 00 Yes [id number] 1.5 tablet EVERY PM 1.5 tablet EVERY PM (route: oral) Med Classific ation: Central Nervous System Agents carbidopa 25 mg-levodopa 100 mg tablet 2024-03 00:00: 00 Yes [id number] 1.5 tablet BEDTIME 1.5 tablet BEDTIME (route: oral) Med Classific ation: Central Nervous System Agents cyclobenzap rine 10 mg tablet 2024-03 00:00: 00 Yes [id number] 1 tablet BEDTIME 1 tablet BEDTIME (route: oral) Med Classific ation: Locomotor System famotidine 40 mg tablet 2024-03 00:00: 00 Yes [id number] 1 tablet EVERY AM 1 tablet EVERY AM (route: oral) Med Classific ation: Gastroint estinal Therapy Agents meloxicam 15 mg tablet 2024-03 00:00: 00 Yes [id number] 1 tablet EVERY AM 1 tablet EVERY AM (route: oral) Med Classific ation: Analgesic , Anti-infl ammatory or Antipyret ic paroxetine 40 mg tablet 2024-03 00:00: 00 Yes [id number] 1 tablet EVERY AM 1 tablet EVERY AM (route: oral) Med Classific ation: Central Nervous System Agents trazodone 50 mg tablet 2024-03 00:00: 00 Yes [id number] 1 tablet BEDTIME 1 tablet BEDTIME (route: oral) Med Classific ation: Central Nervous System Agents Tylenol Arthritis Pain 650 mg tablet,exte nded release 2024-03 0-23 00:00: 00 Yes [id number] 1 tablet EVERY 8 HOURS 1 tablet EVERY 8 HOURS (route: oral) Med Classific ation: Analgesic , Anti-infl ammatory or Antipyret ic Farxiga 5 mg tablet 2024-03 1-03 00:00: 00 Yes [id number] 1 tablet EVERY AM 1 tablet EVERY [...] AWARENESS FOR SAFETY AND WILL NOTIFY CLINICAL SUPERINTENDENT CUSTODIAN JANITOR AND PHYSICIAN/PROVIDER WITH ANY CHANGE IN CONDITION. [code = SKILLED NURSE WILL MAINTAIN SITUATIONAL AWARENESS FOR SAFETY AND WILL NOTIFY CLINICAL SUPERINTENDENT CUSTODIAN JANITOR AND PHYSICIAN/PROVIDER WITH ANY CHANGE IN CONDITION.] [...] CLEAN AND NEATLY DRESSED IN KITCHEN WITH ASSISTANT PROFESSOR OF PHYSICS PRESENT D/T MOUSE PROBLEM. HER HOME IS [...] WITH HER MED PP PER HER MED DECISION ANALYST AND DENIES ANY ADVERSE EFFECTS.</paragraph> Encounters Start Date/Time End Date/Time Encounter Type Admission Type Attending Clinicians Care Facility Care Department Encounter ID Discharge Date Discharge Status Discharge Condition Discharge Reason Percent Goals Met 2025-01-19 00:00:00 2025-03-19 00:00:00 Outpatient RECERTIFIC ATSNEHAL VELA [facility] [id number] 76.00
--- OUTSIDE RECORDS SUMMARY | 2025-03-18 19:00 | XMS_ITS | Clinical Summary ---
Author Organization Unknown Care Team Providers Care Paper Pattern Folder Name Role Phone YAIMA RASMUSSEN, KAVITA BEST Unavailable Unamirella SPEARS RN, SNEHAL Unavailable Unavailable Payers Payer Name Policy Type Policy Number Effective Date Expira tion Date [employer] MEDICARE ADVANTAGE FFS [id number] MEDICARE - [place]GM [id number] Problems Condition Name Condition Details Condition Category [...] 06-25 00:00: 00 12-31 23:59 :00 No [id number] 2 puff DIRECTED 2 puff DIRECTED (route: inhalation ) Med Classific ation: Respirato ry Therapy Agents bupropion HCl XL 300 mg 24 hr tablet, extended release 06-25 00:00: 00 12-31 23:59 :00 No [id number] 1 tablet DAILY 1 tablet DAILY (route: oral) Med Classific ation: Central Nervous System Agents carbidopa 25 mg-levodopa 100 mg tablet 417 00:00: 00 12-31 23:59 :00 No [id number] 1.5 tablet 4 TIMES DAILY 1.5 tablet 4 TIMES DAILY (route: oral) Med Classific ation: Central Nervous System Agents famotidine 40 mg tablet 417 00:00: 00 09-01 23:59 :00 No [id number] 1 tablet DAILY 1 tablet DAILY (route: oral) Med Classific ation: Gastroint estinal Therapy Agents paroxetine 40 mg tablet 17 00:00: 00 12-31 23:59 :00 No [id number] 1 tablet DAILY 1 tablet DAILY (route: oral) Med Classific ation: Central Nervous System Agents trazodone 50 mg tablet 06-25 00:00: 00 09-01 23:59 :00 No [id number] Per instruc tions BEDTIME Per instructio ns BEDTIME (route: oral) Med Classific ation: Central Nervous System Agents gabapentin 100 mg capsule -24 00:00: 00 09-01 23:59 :00 No [id number] pain Per instruc tions BEDTIME Per instructio ns BEDTIME (route: oral) Med Classific ation: Central Nervous System Agents omeprazole 40 mg capsule,del ayed release -24 00:00: 00 05-20 23:59 :00 No [id number] 1 capsule DAILY 1 capsule DAILY (route: oral) Med Classific ation: Gastroint estinal Therapy Agents gabapentin 100 mg capsule 2023-03 0- 00:00: 00 09-01 23:59 :00 No [id number] Per instruc tions 2 TIMES DAILY Per instructio ns 2 TIMES DAILY (route: oral) Med Classific ation: Central Nervous System Agents famotidine 40 mg tablet 3-16 00:00: 00 12-31 23:59 :00 No [id number] 1 tablet EVERY AM 1 tablet EVERY AM (route: oral) Med Classific ation: Gastroint estinal Therapy Agents Tylenol Arthritis Pain 650 mg tablet,exte nded release 3-21 00:00: 00 12-31 23:59 :00 No [id number] 1 tablet EVERY 8 HOURS 1 tablet EVERY 8 HOURS (route: oral) Med Classific ation: Analgesic , Anti-infl ammatory or Antipyret ic cyclobenzap rine 10 mg tablet 08-05 00:00: 00 09-01 23:59 :00 No [id number] 1 tablet BEDTIME 1 tablet BEDTIME (route: oral) Med Classific ation: Locomotor System meloxicam 15 mg tablet 08-05 00:00: 00 09-01 23:59 :00 No [id number] 1 tablet DAILY 1 tablet DAILY (route: oral) Med Classific ation: Analgesic , Anti-infl ammatory or Antipyret ic cyclobenzap rine 10 mg tablet 09-01 00:00: 00 12-31 23:59 :00 No [id number] 1 tablet BEDTIME 1 tablet BEDTIME (route: oral) Med Classific ation: Locomotor System meloxicam 15 mg tablet 09-01 00:00: 00 12-31 23:59 :00 No [id number] 1 tablet EVERY AM 1 tablet EVERY AM (route: oral) Med Classific ation: Analgesic , Anti-infl ammatory or Antipyret ic trazodone 50 mg tablet 09-01 00:00: 00 12-31 23:59 :00 No [id number] Per instruc tions BEDTIME Per instructio ns BEDTIME (route: oral) Med Classific ation: Central Nervous System Agents erythromyci n 5 mg/gram (0.5 %) eye ointment 2024-03 00:00: 00 Yes [id number] Per instruc tions 4 TIMES DAILY Per instructio ns 4 TIMES DAILY (route: ophthalmic (eye)) Med Classific ation: Ophthalmi c Agents albuterol sulfate HFA 90 mcg/actuati on aerosol inhaler 2024-03 00:00: 00 Yes [id number] 2 puff EVERY 6 HOURS 2 puff EVERY 6 HOURS (route: inhalation ) Med Classific ation: Respirato ry Therapy Agents bupropion HCl XL 300 mg 24 hr tablet, extended release 2024-03 00:00: 00 Yes [id number] 1 tablet EVERY AM 1 tablet EVERY AM (route: oral) Med Classific ation: Central Nervous System Agents carbidopa 25 mg-levodopa 100 mg disintegrat ing tablet 2024-03 00:00: 00 Yes [id number] 1.5 tablet NOON 1.5 tablet NOON (route: oral) Med Classific ation: Central Nervous System Agents carbidopa 25 mg-levodopa 100 mg tablet 2024-03 00:00: 00 Yes [id number] 1.5 tablet EVERY AM 1.5 tablet EVERY AM (route: oral) Med Classific ation: Central Nervous System Agents carbidopa 25 mg-levodopa 100 mg tablet 2024-03 00:00: 00 Yes [id number] 1.5 tablet EVERY PM 1.5 tablet EVERY PM (route: oral) Med Classific ation: Central Nervous System Agents carbidopa 25 mg-levodopa 100 mg tablet 2024-03 00:00: 00 Yes [id number] 1.5 tablet BEDTIME 1.5 tablet BEDTIME (route: oral) Med Classific ation: Central Nervous System Agents cyclobenzap rine 10 mg tablet 2024-03 00:00: 00 Yes [id number] 1 tablet BEDTIME 1 tablet BEDTIME (route: oral) Med Classific ation: Locomotor System famotidine 40 mg tablet 2024-03 00:00: 00 Yes [id number] 1 tablet EVERY AM 1 tablet EVERY AM (route: oral) Med Classific ation: Gastroint estinal Therapy Agents meloxicam 15 mg tablet 2024-03 00:00: 00 Yes [id number] 1 tablet EVERY AM 1 tablet EVERY AM (route: oral) Med Classific ation: Analgesic , Anti-infl ammatory or Antipyret ic paroxetine 40 mg tablet 2024-03 00:00: 00 Yes [id number] 1 tablet EVERY AM 1 tablet EVERY AM (route: oral) Med Classific ation: Central Nervous System Agents trazodone 50 mg tablet 2024-03 00:00: 00 Yes [id number] 1 tablet BEDTIME 1 tablet BEDTIME (route: oral) Med Classific ation: Central Nervous System Agents Tylenol Arthritis Pain 650 mg tablet,exte nded release 2024-03 0-23 00:00: 00 Yes [id number] 1 tablet EVERY 8 HOURS 1 tablet EVERY 8 HOURS (route: oral) Med Classific ation: Analgesic , Anti-infl ammatory or Antipyret ic Farxiga 5 mg tablet 2024-03 1-03 00:00: 00 Yes [id number] 1 tablet EVERY AM 1 tablet EVERY [...] AWARENESS FOR SAFETY AND WILL NOTIFY CLINICAL QUALITY TECHNICIAN AND PHYSICIAN/PROVIDER WITH ANY CHANGE IN CONDITION. [code = SKILLED NURSE WILL MAINTAIN SITUATIONAL AWARENESS FOR SAFETY AND WILL NOTIFY CLINICAL QUALITY TECHNICIAN AND PHYSICIAN/PROVIDER WITH ANY CHANGE IN [...] CLEAN AND NEATLY DRESSED IN KITCHEN WITH POCKET MACHINE OPERATOR PRESENT D/T MOUSE PROBLEM. HER HOME [...] WITH HER MED PP PER HER MED ASSEMBLER SEAT AND DENIES ANY ADVERSE EFFECTS.</paragraph> Encounters Start Date/Time End Date/Time Encounter Type Admission Type Attending Clinicians Care Facility Care Department Encounter ID Discharge Date Discharge Status Discharge Condition Discharge Reason Percent Goals Met 2025-01-19 00:00:00 2025-03-19 00:00:00 Outpatient RECERTIFIC ATSNEHAL VELA [facility] [id number] 76.00
--- OUTSIDE RECORDS SUMMARY | 2025-03-18 19:00 | XMS_ITS | Clinical Summary ---
Author Organization Unknown Care Team Providers Care Territory Manager General Sales Name Role Phone YAIMA RASMUSSEN, KAVITA BEST Unavailable Unamirella SPEARS RN, SNEHAL Unavailable Unavailable Payers Payer Name Policy Type Policy Number Effective Date Expira tion Date [employer] MEDICARE ADVANTAGE FFS [id number] MEDICARE - [place] - PDGM [id number] Problems Condition Name Condition Details Condition Category [...] 06-25 00:00: 00 12-31 23:59 :00 No [id number] 2 puff DIRECTED 2 puff DIRECTED (route: inhalation ) Med Classific ation: Respirato ry Therapy Agents bupropion HCl XL 300 mg 24 hr tablet, extended release 06-25 00:00: 00 12-31 23:59 :00 No [id number] 1 tablet DAILY 1 tablet DAILY (route: oral) Med Classific ation: Central Nervous System Agents carbidopa 25 mg-levodopa 100 mg tablet 417 00:00: 00 12-31 23:59 :00 No [id number] 1.5 tablet 4 TIMES DAILY 1.5 tablet 4 TIMES DAILY (route: oral) Med Classific ation: Central Nervous System Agents famotidine 40 mg tablet 417 00:00: 00 09-01 23:59 :00 No [id number] 1 tablet DAILY 1 tablet DAILY (route: oral) Med Classific ation: Gastroint estinal Therapy Agents paroxetine 40 mg tablet 17 00:00: 00 12-31 23:59 :00 No [id number] 1 tablet DAILY 1 tablet DAILY (route: oral) Med Classific ation: Central Nervous System Agents trazodone 50 mg tablet 06-25 00:00: 00 09-01 23:59 :00 No [id number] Per instruc tions BEDTIME Per instructio ns BEDTIME (route: oral) Med Classific ation: Central Nervous System Agents gabapentin 100 mg capsule -24 00:00: 00 09-01 23:59 :00 No [id number] pain Per instruc tions BEDTIME Per instructio ns BEDTIME (route: oral) Med Classific ation: Central Nervous System Agents omeprazole 40 mg capsule,del ayed release -24 00:00: 00 05-20 23:59 :00 No [id number] 1 capsule DAILY 1 capsule DAILY (route: oral) Med Classific ation: Gastroint estinal Therapy Agents gabapentin 100 mg capsule 2023-03 0- 00:00: 00 09-01 23:59 :00 No [id number] Per instruc tions 2 TIMES DAILY Per instructio ns 2 TIMES DAILY (route: oral) Med Classific ation: Central Nervous System Agents famotidine 40 mg tablet 3-16 00:00: 00 12-31 23:59 :00 No [id number] 1 tablet EVERY AM 1 tablet EVERY AM (route: oral) Med Classific ation: Gastroint estinal Therapy Agents Tylenol Arthritis Pain 650 mg tablet,exte nded release 3-21 00:00: 00 12-31 23:59 :00 No [id number] 1 tablet EVERY 8 HOURS 1 tablet EVERY 8 HOURS (route: oral) Med Classific ation: Analgesic , Anti-infl ammatory or Antipyret ic cyclobenzap rine 10 mg tablet 08-05 00:00: 00 09-01 23:59 :00 No [id number] 1 tablet BEDTIME 1 tablet BEDTIME (route: oral) Med Classific ation: Locomotor System meloxicam 15 mg tablet 08-05 00:00: 00 09-01 23:59 :00 No [id number] 1 tablet DAILY 1 tablet DAILY (route: oral) Med Classific ation: Analgesic , Anti-infl ammatory or Antipyret ic cyclobenzap rine 10 mg tablet 09-01 00:00: 00 12-31 23:59 :00 No [id number] 1 tablet BEDTIME 1 tablet BEDTIME (route: oral) Med Classific ation: Locomotor System meloxicam 15 mg tablet 09-01 00:00: 00 12-31 23:59 :00 No [id number] 1 tablet EVERY AM 1 tablet EVERY AM (route: oral) Med Classific ation: Analgesic , Anti-infl ammatory or Antipyret ic trazodone 50 mg tablet 09-01 00:00: 00 12-31 23:59 :00 No [id number] Per instruc tions BEDTIME Per instructio ns BEDTIME (route: oral) Med Classific ation: Central Nervous System Agents erythromyci n 5 mg/gram (0.5 %) eye ointment 2024-03 00:00: 00 Yes [id number] Per instruc tions 4 TIMES DAILY Per instructio ns 4 TIMES DAILY (route: ophthalmic (eye)) Med Classific ation: Ophthalmi c Agents albuterol sulfate HFA 90 mcg/actuati on aerosol inhaler 2024-03 00:00: 00 Yes [id number] 2 puff EVERY 6 HOURS 2 puff EVERY 6 HOURS (route: inhalation ) Med Classific ation: Respirato ry Therapy Agents bupropion HCl XL 300 mg 24 hr tablet, extended release 2024-03 00:00: 00 Yes [id number] 1 tablet EVERY AM 1 tablet EVERY AM (route: oral) Med Classific ation: Central Nervous System Agents carbidopa 25 mg-levodopa 100 mg disintegrat ing tablet 2024-03 00:00: 00 Yes [id number] 1.5 tablet NOON 1.5 tablet NOON (route: oral) Med Classific ation: Central Nervous System Agents carbidopa 25 mg-levodopa 100 mg tablet 2024-03 00:00: 00 Yes [id number] 1.5 tablet EVERY AM 1.5 tablet EVERY AM (route: oral) Med Classific ation: Central Nervous System Agents carbidopa 25 mg-levodopa 100 mg tablet 2024-03 00:00: 00 Yes [id number] 1.5 tablet EVERY PM 1.5 tablet EVERY PM (route: oral) Med Classific ation: Central Nervous System Agents carbidopa 25 mg-levodopa 100 mg tablet 2024-03 00:00: 00 Yes [id number] 1.5 tablet BEDTIME 1.5 tablet BEDTIME (route: oral) Med Classific ation: Central Nervous System Agents cyclobenzap rine 10 mg tablet 2024-03 00:00: 00 Yes [id number] 1 tablet BEDTIME 1 tablet BEDTIME (route: oral) Med Classific ation: Locomotor System famotidine 40 mg tablet 2024-03 00:00: 00 Yes [id number] 1 tablet EVERY AM 1 tablet EVERY AM (route: oral) Med Classific ation: Gastroint estinal Therapy Agents meloxicam 15 mg tablet 2024-03 00:00: 00 Yes [id number] 1 tablet EVERY AM 1 tablet EVERY AM (route: oral) Med Classific ation: Analgesic , Anti-infl ammatory or Antipyret ic paroxetine 40 mg tablet 2024-03 00:00: 00 Yes [id number] 1 tablet EVERY AM 1 tablet EVERY AM (route: oral) Med Classific ation: Central Nervous System Agents trazodone 50 mg tablet 2024-03 00:00: 00 Yes [id number] 1 tablet BEDTIME 1 tablet BEDTIME (route: oral) Med Classific ation: Central Nervous System Agents Tylenol Arthritis Pain 650 mg tablet,exte nded release 2024-03 0-23 00:00: 00 Yes [id number] 1 tablet EVERY 8 HOURS 1 tablet EVERY 8 HOURS (route: oral) Med Classific ation: Analgesic , Anti-infl ammatory or Antipyret ic Farxiga 5 mg tablet 2024-03 1-03 00:00: 00 Yes [id number] 1 tablet EVERY AM 1 tablet EVERY [...] AWARENESS FOR SAFETY AND WILL NOTIFY CLINICAL EXECUTIVE SALES MANAGER AND PHYSICIAN/PROVIDER WITH ANY CHANGE IN CONDITION. [code = SKILLED NURSE WILL MAINTAIN SITUATIONAL AWARENESS FOR SAFETY AND WILL NOTIFY CLINICAL EXECUTIVE SALES MANAGER AND PHYSICIAN/PROVIDER WITH ANY CHANGE IN [...] CLEAN AND NEATLY DRESSED IN KITCHEN WITH SURVEILLANCE ANALYST PRESENT D/T MOUSE PROBLEM. HER HOME [...] WITH HER MED PP PER HER MED SUPERVISOR BOTTLE HOUSE CLEANERS AND DENIES ANY ADVERSE EFFECTS.</paragraph> Encounters Start Date/Time End Date/Time Encounter Type Admission Type Attending Clinicians Care Facility Care Department Encounter ID Discharge Date Discharge Status Discharge Condition Discharge Reason Percent Goals Met 2025-01-19 00:00:00 2025-03-19 00:00:00 Outpatient RECERTIFIC ATSNEHAL VELA [facility] [id number] 76.00
--- OUTSIDE RECORDS SUMMARY | 2025-03-18 19:00 | XMS_ITS | Clinical Summary ---
Author Organization Unknown Care Team Providers Care Hydraulic Lift Operator Name Role Phone YAIMA RASMUSSEN, KAVITA BEST Unavailable Unamirella SPEARS RN, SNEHAL Unavailable Unavailable Payers Payer Name Policy Type Policy Number Effective Date Expira tion Date [employer] MEDICARE ADVANTAGE FFS [id number] MEDICARE - [place] PDGM [id number] Problems Condition Name Condition Details Condition Category [...] 06-25 00:00: 00 12-31 23:59 :00 No [id number] 2 puff DIRECTED 2 puff DIRECTED (route: inhalation ) Med Classific ation: Respirato ry Therapy Agents bupropion HCl XL 300 mg 24 hr tablet, extended release 06-25 00:00: 00 12-31 23:59 :00 No [id number] 1 tablet DAILY 1 tablet DAILY (route: oral) Med Classific ation: Central Nervous System Agents carbidopa 25 mg-levodopa 100 mg tablet 417 00:00: 00 12-31 23:59 :00 No [id number] 1.5 tablet 4 TIMES DAILY 1.5 tablet 4 TIMES DAILY (route: oral) Med Classific ation: Central Nervous System Agents famotidine 40 mg tablet 417 00:00: 00 09-01 23:59 :00 No [id number] 1 tablet DAILY 1 tablet DAILY (route: oral) Med Classific ation: Gastroint estinal Therapy Agents paroxetine 40 mg tablet 17 00:00: 00 12-31 23:59 :00 No [id number] 1 tablet DAILY 1 tablet DAILY (route: oral) Med Classific ation: Central Nervous System Agents trazodone 50 mg tablet 06-25 00:00: 00 09-01 23:59 :00 No [id number] Per instruc tions BEDTIME Per instructio ns BEDTIME (route: oral) Med Classific ation: Central Nervous System Agents gabapentin 100 mg capsule -24 00:00: 00 09-01 23:59 :00 No [id number] pain Per instruc tions BEDTIME Per instructio ns BEDTIME (route: oral) Med Classific ation: Central Nervous System Agents omeprazole 40 mg capsule,del ayed release -24 00:00: 00 05-20 23:59 :00 No [id number] 1 capsule DAILY 1 capsule DAILY (route: oral) Med Classific ation: Gastroint estinal Therapy Agents gabapentin 100 mg capsule 2023-03 0- 00:00: 00 09-01 23:59 :00 No [id number] Per instruc tions 2 TIMES DAILY Per instructio ns 2 TIMES DAILY (route: oral) Med Classific ation: Central Nervous System Agents famotidine 40 mg tablet 3-16 00:00: 00 12-31 23:59 :00 No [id number] 1 tablet EVERY AM 1 tablet EVERY AM (route: oral) Med Classific ation: Gastroint estinal Therapy Agents Tylenol Arthritis Pain 650 mg tablet,exte nded release 3-21 00:00: 00 12-31 23:59 :00 No [id number] 1 tablet EVERY 8 HOURS 1 tablet EVERY 8 HOURS (route: oral) Med Classific ation: Analgesic , Anti-infl ammatory or Antipyret ic cyclobenzap rine 10 mg tablet 08-05 00:00: 00 09-01 23:59 :00 No [id number] 1 tablet BEDTIME 1 tablet BEDTIME (route: oral) Med Classific ation: Locomotor System meloxicam 15 mg tablet 08-05 00:00: 00 09-01 23:59 :00 No [id number] 1 tablet DAILY 1 tablet DAILY (route: oral) Med Classific ation: Analgesic , Anti-infl ammatory or Antipyret ic cyclobenzap rine 10 mg tablet 09-01 00:00: 00 12-31 23:59 :00 No [id number] 1 tablet BEDTIME 1 tablet BEDTIME (route: oral) Med Classific ation: Locomotor System meloxicam 15 mg tablet 09-01 00:00: 00 12-31 23:59 :00 No [id number] 1 tablet EVERY AM 1 tablet EVERY AM (route: oral) Med Classific ation: Analgesic , Anti-infl ammatory or Antipyret ic trazodone 50 mg tablet 09-01 00:00: 00 12-31 23:59 :00 No [id number] Per instruc tions BEDTIME Per instructio ns BEDTIME (route: oral) Med Classific ation: Central Nervous System Agents erythromyci n 5 mg/gram (0.5 %) eye ointment 2024-03 00:00: 00 Yes [id number] Per instruc tions 4 TIMES DAILY Per instructio ns 4 TIMES DAILY (route: ophthalmic (eye)) Med Classific ation: Ophthalmi c Agents albuterol sulfate HFA 90 mcg/actuati on aerosol inhaler 2024-03 00:00: 00 Yes [id number] 2 puff EVERY 6 HOURS 2 puff EVERY 6 HOURS (route: inhalation ) Med Classific ation: Respirato ry Therapy Agents bupropion HCl XL 300 mg 24 hr tablet, extended release 2024-03 00:00: 00 Yes [id number] 1 tablet EVERY AM 1 tablet EVERY AM (route: oral) Med Classific ation: Central Nervous System Agents carbidopa 25 mg-levodopa 100 mg disintegrat ing tablet 2024-03 00:00: 00 Yes [id number] 1.5 tablet NOON 1.5 tablet NOON (route: oral) Med Classific ation: Central Nervous System Agents carbidopa 25 mg-levodopa 100 mg tablet 2024-03 00:00: 00 Yes [id number] 1.5 tablet EVERY AM 1.5 tablet EVERY AM (route: oral) Med Classific ation: Central Nervous System Agents carbidopa 25 mg-levodopa 100 mg tablet 2024-03 00:00: 00 Yes [id number] 1.5 tablet EVERY PM 1.5 tablet EVERY PM (route: oral) Med Classific ation: Central Nervous System Agents carbidopa 25 mg-levodopa 100 mg tablet 2024-03 00:00: 00 Yes [id number] 1.5 tablet BEDTIME 1.5 tablet BEDTIME (route: oral) Med Classific ation: Central Nervous System Agents cyclobenzap rine 10 mg tablet 2024-03 00:00: 00 Yes [id number] 1 tablet BEDTIME 1 tablet BEDTIME (route: oral) Med Classific ation: Locomotor System famotidine 40 mg tablet 2024-03 00:00: 00 Yes [id number] 1 tablet EVERY AM 1 tablet EVERY AM (route: oral) Med Classific ation: Gastroint estinal Therapy Agents meloxicam 15 mg tablet 2024-03 00:00: 00 Yes [id number] 1 tablet EVERY AM 1 tablet EVERY AM (route: oral) Med Classific ation: Analgesic , Anti-infl ammatory or Antipyret ic paroxetine 40 mg tablet 2024-03 00:00: 00 Yes [id number] 1 tablet EVERY AM 1 tablet EVERY AM (route: oral) Med Classific ation: Central Nervous System Agents trazodone 50 mg tablet 2024-03 00:00: 00 Yes [id number] 1 tablet BEDTIME 1 tablet BEDTIME (route: oral) Med Classific ation: Central Nervous System Agents Tylenol Arthritis Pain 650 mg tablet,exte nded release 2024-03 0-23 00:00: 00 Yes [id number] 1 tablet EVERY 8 HOURS 1 tablet EVERY 8 HOURS (route: oral) Med Classific ation: Analgesic , Anti-infl ammatory or Antipyret ic Farxiga 5 mg tablet 2024-03 1-03 00:00: 00 Yes [id number] 1 tablet EVERY AM 1 tablet EVERY [...] AWARENESS FOR SAFETY AND WILL NOTIFY CLINICAL EXCAVATOR BACKHOE OPERATOR AND PHYSICIAN/PROVIDER WITH ANY CHANGE IN CONDITION. [code = SKILLED NURSE WILL MAINTAIN SITUATIONAL AWARENESS FOR SAFETY AND WILL NOTIFY CLINICAL EXCAVATOR BACKHOE OPERATOR AND PHYSICIAN/PROVIDER WITH ANY CHANGE IN [...] CLEAN AND NEATLY DRESSED IN KITCHEN WITH ENVIRONMENTAL STUDIES PROGRAM DIRECTOR PRESENT D/T MOUSE PROBLEM. HER HOME [...] WITH HER MED PP PER HER MED SCHEDULE ANNOUNCER AND DENIES ANY ADVERSE EFFECTS.</paragraph> Encounters Start Date/Time End Date/Time Encounter Type Admission Type Attending Clinicians Care Facility Care Department Encounter ID Discharge Date Discharge Status Discharge Condition Discharge Reason Percent Goals Met 2025-01-19 00:00:00 2025-03-19 00:00:00 Outpatient RECERTIFIC ATSNEHAL VELA [facility] [id number] 76.00
--- OUTSIDE RECORDS SUMMARY | 2025-03-18 19:00 | XMS_ITS | Clinical Summary ---
Author Organization Unknown Care Team Providers Care Rail Car Maintenance Mechanic Name Role Phone YAIMA RASMUSSEN, KAVITA BEST Unavailable Unamirella SPEARS RN, SNEHAL Unavailable Unavailable Payers Payer Name Policy Type Policy Number Effective Date Expira tion Date [employer] MEDICARE ADVANTAGE FFS [id number] MEDICARE - [place] - PDGM [id number] Problems Condition Name Condition Details Condition Category [...] 06-25 00:00: 00 12-31 23:59 :00 No [id number] 2 puff DIRECTED 2 puff DIRECTED (route: inhalation ) Med Classific ation: Respirato ry Therapy Agents bupropion HCl XL 300 mg 24 hr tablet, extended release 06-25 00:00: 00 12-31 23:59 :00 No [id number] 1 tablet DAILY 1 tablet DAILY (route: oral) Med Classific ation: Central Nervous System Agents carbidopa 25 mg-levodopa 100 mg tablet 417 00:00: 00 12-31 23:59 :00 No [id number] 1.5 tablet 4 TIMES DAILY 1.5 tablet 4 TIMES DAILY (route: oral) Med Classific ation: Central Nervous System Agents famotidine 40 mg tablet 417 00:00: 00 09-01 23:59 :00 No [id number] 1 tablet DAILY 1 tablet DAILY (route: oral) Med Classific ation: Gastroint estinal Therapy Agents paroxetine 40 mg tablet 17 00:00: 00 12-31 23:59 :00 No [id number] 1 tablet DAILY 1 tablet DAILY (route: oral) Med Classific ation: Central Nervous System Agents trazodone 50 mg tablet 06-25 00:00: 00 09-01 23:59 :00 No [id number] Per instruc tions BEDTIME Per instructio ns BEDTIME (route: oral) Med Classific ation: Central Nervous System Agents gabapentin 100 mg capsule -24 00:00: 00 09-01 23:59 :00 No [id number] pain Per instruc tions BEDTIME Per instructio ns BEDTIME (route: oral) Med Classific ation: Central Nervous System Agents omeprazole 40 mg capsule,del ayed release -24 00:00: 00 05-20 23:59 :00 No [id number] 1 capsule DAILY 1 capsule DAILY (route: oral) Med Classific ation: Gastroint estinal Therapy Agents gabapentin 100 mg capsule 2023-03 0- 00:00: 00 09-01 23:59 :00 No [id number] Per instruc tions 2 TIMES DAILY Per instructio ns 2 TIMES DAILY (route: oral) Med Classific ation: Central Nervous System Agents famotidine 40 mg tablet 3-16 00:00: 00 12-31 23:59 :00 No [id number] 1 tablet EVERY AM 1 tablet EVERY AM (route: oral) Med Classific ation: Gastroint estinal Therapy Agents Tylenol Arthritis Pain 650 mg tablet,exte nded release 3-21 00:00: 00 12-31 23:59 :00 No [id number] 1 tablet EVERY 8 HOURS 1 tablet EVERY 8 HOURS (route: oral) Med Classific ation: Analgesic , Anti-infl ammatory or Antipyret ic cyclobenzap rine 10 mg tablet 08-05 00:00: 00 09-01 23:59 :00 No [id number] 1 tablet BEDTIME 1 tablet BEDTIME (route: oral) Med Classific ation: Locomotor System meloxicam 15 mg tablet 08-05 00:00: 00 09-01 23:59 :00 No [id number] 1 tablet DAILY 1 tablet DAILY (route: oral) Med Classific ation: Analgesic , Anti-infl ammatory or Antipyret ic cyclobenzap rine 10 mg tablet 09-01 00:00: 00 12-31 23:59 :00 No [id number] 1 tablet BEDTIME 1 tablet BEDTIME (route: oral) Med Classific ation: Locomotor System meloxicam 15 mg tablet 09-01 00:00: 00 12-31 23:59 :00 No [id number] 1 tablet EVERY AM 1 tablet EVERY AM (route: oral) Med Classific ation: Analgesic , Anti-infl ammatory or Antipyret ic trazodone 50 mg tablet 09-01 00:00: 00 12-31 23:59 :00 No [id number] Per instruc tions BEDTIME Per instructio ns BEDTIME (route: oral) Med Classific ation: Central Nervous System Agents erythromyci n 5 mg/gram (0.5 %) eye ointment 2024-03 00:00: 00 Yes [id number] Per instruc tions 4 TIMES DAILY Per instructio ns 4 TIMES DAILY (route: ophthalmic (eye)) Med Classific ation: Ophthalmi c Agents albuterol sulfate HFA 90 mcg/actuati on aerosol inhaler 2024-03 00:00: 00 Yes [id number] 2 puff EVERY 6 HOURS 2 puff EVERY 6 HOURS (route: inhalation ) Med Classific ation: Respirato ry Therapy Agents bupropion HCl XL 300 mg 24 hr tablet, extended release 2024-03 00:00: 00 Yes [id number] 1 tablet EVERY AM 1 tablet EVERY AM (route: oral) Med Classific ation: Central Nervous System Agents carbidopa 25 mg-levodopa 100 mg disintegrat ing tablet 2024-03 00:00: 00 Yes [id number] 1.5 tablet NOON 1.5 tablet NOON (route: oral) Med Classific ation: Central Nervous System Agents carbidopa 25 mg-levodopa 100 mg tablet 2024-03 00:00: 00 Yes [id number] 1.5 tablet EVERY AM 1.5 tablet EVERY AM (route: oral) Med Classific ation: Central Nervous System Agents carbidopa 25 mg-levodopa 100 mg tablet 2024-03 00:00: 00 Yes [id number] 1.5 tablet EVERY PM 1.5 tablet EVERY PM (route: oral) Med Classific ation: Central Nervous System Agents carbidopa 25 mg-levodopa 100 mg tablet 2024-03 00:00: 00 Yes [id number] 1.5 tablet BEDTIME 1.5 tablet BEDTIME (route: oral) Med Classific ation: Central Nervous System Agents cyclobenzap rine 10 mg tablet 2024-03 00:00: 00 Yes [id number] 1 tablet BEDTIME 1 tablet BEDTIME (route: oral) Med Classific ation: Locomotor System famotidine 40 mg tablet 2024-03 00:00: 00 Yes [id number] 1 tablet EVERY AM 1 tablet EVERY AM (route: oral) Med Classific ation: Gastroint estinal Therapy Agents meloxicam 15 mg tablet 2024-03 00:00: 00 Yes [id number] 1 tablet EVERY AM 1 tablet EVERY AM (route: oral) Med Classific ation: Analgesic , Anti-infl ammatory or Antipyret ic paroxetine 40 mg tablet 2024-03 00:00: 00 Yes [id number] 1 tablet EVERY AM 1 tablet EVERY AM (route: oral) Med Classific ation: Central Nervous System Agents trazodone 50 mg tablet 2024-03 00:00: 00 Yes [id number] 1 tablet BEDTIME 1 tablet BEDTIME (route: oral) Med Classific ation: Central Nervous System Agents Tylenol Arthritis Pain 650 mg tablet,exte nded release 2024-03 0-23 00:00: 00 Yes [id number] 1 tablet EVERY 8 HOURS 1 tablet EVERY 8 HOURS (route: oral) Med Classific ation: Analgesic , Anti-infl ammatory or Antipyret ic Farxiga 5 mg tablet 2024-03 1-03 00:00: 00 Yes [id number] 1 tablet EVERY AM 1 tablet EVERY [...] FOR SAFETY AND WILL NOTIFY CLINICAL HAND RUG BRAIDER AND PHYSICIAN/PROVIDER WITH ANY CHANGE IN CONDITION. [code = SKILLED NURSE WILL MAINTAIN SITUATIONAL AWARENESS FOR SAFETY AND WILL NOTIFY CLINICAL HAND RUG BRAIDER AND PHYSICIAN/PROVIDER WITH ANY CHANGE IN CONDITION.] [...] CLEAN AND NEATLY DRESSED IN KITCHEN WITH MECHANICAL DEVELOPMENT ENGINEER PRESENT D/T MOUSE PROBLEM. HER HOME [...] WITH HER MED PP PER HER MED STRUCTURAL DRAFTER AND DENIES ANY ADVERSE EFFECTS.</paragraph> Encounters Start Date/Time End Date/Time Encounter Type Admission Type Attending Clinicians Care Facility Care Department Encounter ID Discharge Date Discharge Status Discharge Condition Discharge Reason Percent Goals Met 2025-01-19 00:00:00 2025-03-19 00:00:00 Outpatient RECERTIFIC ATSNEHAL VELA [facility] [id number] 76.00
--- OUTSIDE RECORDS SUMMARY | 2025-03-18 19:00 | XMS_ITS | Clinical Summary ---
Author Organization Unknown Care Team Providers Care Mill Hand Plate Mill Name Role Phone YAIMA RASMUSSEN, KAVITA BEST Unavailable Unamirella SPEARS RN, SNEHAL Unavailable Unavailable Payers Payer Name Policy Type Policy Number Effective Date Expira tion Date [employer] MEDICARE ADVANTAGE FFS [id number] MEDICARE - [place] - PDGM [id number] Problems Condition Name Condition Details Condition Category [...] 06-25 00:00: 00 12-31 23:59 :00 No [id number] 2 puff DIRECTED 2 puff DIRECTED (route: inhalation ) Med Classific ation: Respirato ry Therapy Agents bupropion HCl XL 300 mg 24 hr tablet, extended release 06-25 00:00: 00 12-31 23:59 :00 No [id number] 1 tablet DAILY 1 tablet DAILY (route: oral) Med Classific ation: Central Nervous System Agents carbidopa 25 mg-levodopa 100 mg tablet 417 00:00: 00 12-31 23:59 :00 No [id number] 1.5 tablet 4 TIMES DAILY 1.5 tablet 4 TIMES DAILY (route: oral) Med Classific ation: Central Nervous System Agents famotidine 40 mg tablet 417 00:00: 00 09-01 23:59 :00 No [id number] 1 tablet DAILY 1 tablet DAILY (route: oral) Med Classific ation: Gastroint estinal Therapy Agents paroxetine 40 mg tablet 17 00:00: 00 12-31 23:59 :00 No [id number] 1 tablet DAILY 1 tablet DAILY (route: oral) Med Classific ation: Central Nervous System Agents trazodone 50 mg tablet 06-25 00:00: 00 09-01 23:59 :00 No [id number] Per instruc tions BEDTIME Per instructio ns BEDTIME (route: oral) Med Classific ation: Central Nervous System Agents gabapentin 100 mg capsule -24 00:00: 00 09-01 23:59 :00 No [id number] pain Per instruc tions BEDTIME Per instructio ns BEDTIME (route: oral) Med Classific ation: Central Nervous System Agents omeprazole 40 mg capsule,del ayed release -24 00:00: 00 05-20 23:59 :00 No [id number] 1 capsule DAILY 1 capsule DAILY (route: oral) Med Classific ation: Gastroint estinal Therapy Agents gabapentin 100 mg capsule 2023-03 0- 00:00: 00 09-01 23:59 :00 No [id number] Per instruc tions 2 TIMES DAILY Per instructio ns 2 TIMES DAILY (route: oral) Med Classific ation: Central Nervous System Agents famotidine 40 mg tablet 3-16 00:00: 00 12-31 23:59 :00 No [id number] 1 tablet EVERY AM 1 tablet EVERY AM (route: oral) Med Classific ation: Gastroint estinal Therapy Agents Tylenol Arthritis Pain 650 mg tablet,exte nded release 3-21 00:00: 00 12-31 23:59 :00 No [id number] 1 tablet EVERY 8 HOURS 1 tablet EVERY 8 HOURS (route: oral) Med Classific ation: Analgesic , Anti-infl ammatory or Antipyret ic cyclobenzap rine 10 mg tablet 08-05 00:00: 00 09-01 23:59 :00 No [id number] 1 tablet BEDTIME 1 tablet BEDTIME (route: oral) Med Classific ation: Locomotor System meloxicam 15 mg tablet 08-05 00:00: 00 09-01 23:59 :00 No [id number] 1 tablet DAILY 1 tablet DAILY (route: oral) Med Classific ation: Analgesic , Anti-infl ammatory or Antipyret ic cyclobenzap rine 10 mg tablet 09-01 00:00: 00 12-31 23:59 :00 No [id number] 1 tablet BEDTIME 1 tablet BEDTIME (route: oral) Med Classific ation: Locomotor System meloxicam 15 mg tablet 09-01 00:00: 00 12-31 23:59 :00 No [id number] 1 tablet EVERY AM 1 tablet EVERY AM (route: oral) Med Classific ation: Analgesic , Anti-infl ammatory or Antipyret ic trazodone 50 mg tablet 09-01 00:00: 00 12-31 23:59 :00 No [id number] Per instruc tions BEDTIME Per instructio ns BEDTIME (route: oral) Med Classific ation: Central Nervous System Agents erythromyci n 5 mg/gram (0.5 %) eye ointment 2024-03 00:00: 00 Yes [id number] Per instruc tions 4 TIMES DAILY Per instructio ns 4 TIMES DAILY (route: ophthalmic (eye)) Med Classific ation: Ophthalmi c Agents albuterol sulfate HFA 90 mcg/actuati on aerosol inhaler 2024-03 00:00: 00 Yes [id number] 2 puff EVERY 6 HOURS 2 puff EVERY 6 HOURS (route: inhalation ) Med Classific ation: Respirato ry Therapy Agents bupropion HCl XL 300 mg 24 hr tablet, extended release 2024-03 00:00: 00 Yes [id number] 1 tablet EVERY AM 1 tablet EVERY AM (route: oral) Med Classific ation: Central Nervous System Agents carbidopa 25 mg-levodopa 100 mg disintegrat ing tablet 2024-03 00:00: 00 Yes [id number] 1.5 tablet NOON 1.5 tablet NOON (route: oral) Med Classific ation: Central Nervous System Agents carbidopa 25 mg-levodopa 100 mg tablet 2024-03 00:00: 00 Yes [id number] 1.5 tablet EVERY AM 1.5 tablet EVERY AM (route: oral) Med Classific ation: Central Nervous System Agents carbidopa 25 mg-levodopa 100 mg tablet 2024-03 00:00: 00 Yes [id number] 1.5 tablet EVERY PM 1.5 tablet EVERY PM (route: oral) Med Classific ation: Central Nervous System Agents carbidopa 25 mg-levodopa 100 mg tablet 2024-03 00:00: 00 Yes [id number] 1.5 tablet BEDTIME 1.5 tablet BEDTIME (route: oral) Med Classific ation: Central Nervous System Agents cyclobenzap rine 10 mg tablet 2024-03 00:00: 00 Yes [id number] 1 tablet BEDTIME 1 tablet BEDTIME (route: oral) Med Classific ation: Locomotor System famotidine 40 mg tablet 2024-03 00:00: 00 Yes [id number] 1 tablet EVERY AM 1 tablet EVERY AM (route: oral) Med Classific ation: Gastroint estinal Therapy Agents meloxicam 15 mg tablet 2024-03 00:00: 00 Yes [id number] 1 tablet EVERY AM 1 tablet EVERY AM (route: oral) Med Classific ation: Analgesic , Anti-infl ammatory or Antipyret ic paroxetine 40 mg tablet 2024-03 00:00: 00 Yes [id number] 1 tablet EVERY AM 1 tablet EVERY AM (route: oral) Med Classific ation: Central Nervous System Agents trazodone 50 mg tablet 2024-03 00:00: 00 Yes [id number] 1 tablet BEDTIME 1 tablet BEDTIME (route: oral) Med Classific ation: Central Nervous System Agents Tylenol Arthritis Pain 650 mg tablet,exte nded release 2024-03 0-23 00:00: 00 Yes [id number] 1 tablet EVERY 8 HOURS 1 tablet EVERY 8 HOURS (route: oral) Med Classific ation: Analgesic , Anti-infl ammatory or Antipyret ic Farxiga 5 mg tablet 2024-03 1-03 00:00: 00 Yes [id number] 1 tablet EVERY AM 1 tablet EVERY [...] AWARENESS FOR SAFETY AND WILL NOTIFY CLINICAL ELECTRICIAN SUPERVISOR AIRPLANE AND PHYSICIAN/PROVIDER WITH ANY CHANGE IN CONDITION. [code = SKILLED NURSE WILL MAINTAIN SITUATIONAL AWARENESS FOR SAFETY AND WILL NOTIFY CLINICAL ELECTRICIAN SUPERVISOR AIRPLANE AND PHYSICIAN/PROVIDER WITH ANY CHANGE IN CONDITION.] [...] CLEAN AND NEATLY DRESSED IN KITCHEN WITH ELECTRONIC WARFARE OFFICER PRESENT D/T MOUSE PROBLEM. 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
--- OUTSIDE RECORDS SUMMARY | 2025-03-18 19:00 | XMS_ITS | Clinical Summary ---
Author Organization Unknown Care Team Providers Care Sterile Preparation Technician Name Role Phone YAIMA RASMUSSEN, KAVITA BEST Unavailable Unamirella SPEARS RN, SNEHAL Unavailable Unavailable Payers Payer Name Policy Type Policy Number Effective Date Expira tion Date [employer] MEDICARE ADVANTAGE FFS [id number] MEDICARE - [place] PDGM [id number] Problems Condition Name Condition Details Condition Category [...] 06-25 00:00: 00 12-31 23:59 :00 No [id number] 2 puff DIRECTED 2 puff DIRECTED (route: inhalation ) Med Classific ation: Respirato ry Therapy Agents bupropion HCl XL 300 mg 24 hr tablet, extended release 06-25 00:00: 00 12-31 23:59 :00 No [id number] 1 tablet DAILY 1 tablet DAILY (route: oral) Med Classific ation: Central Nervous System Agents carbidopa 25 mg-levodopa 100 mg tablet 417 00:00: 00 12-31 23:59 :00 No [id number] 1.5 tablet 4 TIMES DAILY 1.5 tablet 4 TIMES DAILY (route: oral) Med Classific ation: Central Nervous System Agents famotidine 40 mg tablet 417 00:00: 00 09-01 23:59 :00 No [id number] 1 tablet DAILY 1 tablet DAILY (route: oral) Med Classific ation: Gastroint estinal Therapy Agents paroxetine 40 mg tablet 17 00:00: 00 12-31 23:59 :00 No [id number] 1 tablet DAILY 1 tablet DAILY (route: oral) Med Classific ation: Central Nervous System Agents trazodone 50 mg tablet 06-25 00:00: 00 09-01 23:59 :00 No [id number] Per instruc tions BEDTIME Per instructio ns BEDTIME (route: oral) Med Classific ation: Central Nervous System Agents gabapentin 100 mg capsule -24 00:00: 00 09-01 23:59 :00 No [id number] pain Per instruc tions BEDTIME Per instructio ns BEDTIME (route: oral) Med Classific ation: Central Nervous System Agents omeprazole 40 mg capsule,del ayed release -24 00:00: 00 05-20 23:59 :00 No [id number] 1 capsule DAILY 1 capsule DAILY (route: oral) Med Classific ation: Gastroint estinal Therapy Agents gabapentin 100 mg capsule 2023-03 0- 00:00: 00 09-01 23:59 :00 No [id number] Per instruc tions 2 TIMES DAILY Per instructio ns 2 TIMES DAILY (route: oral) Med Classific ation: Central Nervous System Agents famotidine 40 mg tablet 3-16 00:00: 00 12-31 23:59 :00 No [id number] 1 tablet EVERY AM 1 tablet EVERY AM (route: oral) Med Classific ation: Gastroint estinal Therapy Agents Tylenol Arthritis Pain 650 mg tablet,exte nded release 3-21 00:00: 00 12-31 23:59 :00 No [id number] 1 tablet EVERY 8 HOURS 1 tablet EVERY 8 HOURS (route: oral) Med Classific ation: Analgesic , Anti-infl ammatory or Antipyret ic cyclobenzap rine 10 mg tablet 08-05 00:00: 00 09-01 23:59 :00 No [id number] 1 tablet BEDTIME 1 tablet BEDTIME (route: oral) Med Classific ation: Locomotor System meloxicam 15 mg tablet 08-05 00:00: 00 09-01 23:59 :00 No [id number] 1 tablet DAILY 1 tablet DAILY (route: oral) Med Classific ation: Analgesic , Anti-infl ammatory or Antipyret ic cyclobenzap rine 10 mg tablet 09-01 00:00: 00 12-31 23:59 :00 No [id number] 1 tablet BEDTIME 1 tablet BEDTIME (route: oral) Med Classific ation: Locomotor System meloxicam 15 mg tablet 09-01 00:00: 00 12-31 23:59 :00 No [id number] 1 tablet EVERY AM 1 tablet EVERY AM (route: oral) Med Classific ation: Analgesic , Anti-infl ammatory or Antipyret ic trazodone 50 mg tablet 09-01 00:00: 00 12-31 23:59 :00 No [id number] Per instruc tions BEDTIME Per instructio ns BEDTIME (route: oral) Med Classific ation: Central Nervous System Agents erythromyci n 5 mg/gram (0.5 %) eye ointment 2024-03 00:00: 00 Yes [id number] Per instruc tions 4 TIMES DAILY Per instructio ns 4 TIMES DAILY (route: ophthalmic (eye)) Med Classific ation: Ophthalmi c Agents albuterol sulfate HFA 90 mcg/actuati on aerosol inhaler 2024-03 00:00: 00 Yes [id number] 2 puff EVERY 6 HOURS 2 puff EVERY 6 HOURS (route: inhalation ) Med Classific ation: Respirato ry Therapy Agents bupropion HCl XL 300 mg 24 hr tablet, extended release 2024-03 00:00: 00 Yes [id number] 1 tablet EVERY AM 1 tablet EVERY AM (route: oral) Med Classific ation: Central Nervous System Agents carbidopa 25 mg-levodopa 100 mg disintegrat ing tablet 2024-03 00:00: 00 Yes [id number] 1.5 tablet NOON 1.5 tablet NOON (route: oral) Med Classific ation: Central Nervous System Agents carbidopa 25 mg-levodopa 100 mg tablet 2024-03 00:00: 00 Yes [id number] 1.5 tablet EVERY AM 1.5 tablet EVERY AM (route: oral) Med Classific ation: Central Nervous System Agents carbidopa 25 mg-levodopa 100 mg tablet 2024-03 00:00: 00 Yes [id number] 1.5 tablet EVERY PM 1.5 tablet EVERY PM (route: oral) Med Classific ation: Central Nervous System Agents carbidopa 25 mg-levodopa 100 mg tablet 2024-03 00:00: 00 Yes [id number] 1.5 tablet BEDTIME 1.5 tablet BEDTIME (route: oral) Med Classific ation: Central Nervous System Agents cyclobenzap rine 10 mg tablet 2024-03 00:00: 00 Yes [id number] 1 tablet BEDTIME 1 tablet BEDTIME (route: oral) Med Classific ation: Locomotor System famotidine 40 mg tablet 2024-03 00:00: 00 Yes [id number] 1 tablet EVERY AM 1 tablet EVERY AM (route: oral) Med Classific ation: Gastroint estinal Therapy Agents meloxicam 15 mg tablet 2024-03 00:00: 00 Yes [id number] 1 tablet EVERY AM 1 tablet EVERY AM (route: oral) Med Classific ation: Analgesic , Anti-infl ammatory or Antipyret ic paroxetine 40 mg tablet 2024-03 00:00: 00 Yes [id number] 1 tablet EVERY AM 1 tablet EVERY AM (route: oral) Med Classific ation: Central Nervous System Agents trazodone 50 mg tablet 2024-03 00:00: 00 Yes [id number] 1 tablet BEDTIME 1 tablet BEDTIME (route: oral) Med Classific ation: Central Nervous System Agents Tylenol Arthritis Pain 650 mg tablet,exte nded release 2024-03 0-23 00:00: 00 Yes [id number] 1 tablet EVERY 8 HOURS 1 tablet EVERY 8 HOURS (route: oral) Med Classific ation: Analgesic , Anti-infl ammatory or Antipyret ic Farxiga 5 mg tablet 2024-03 1-03 00:00: 00 Yes [id number] 1 tablet EVERY AM 1 tablet EVERY [...] AWARENESS FOR SAFETY AND WILL NOTIFY CLINICAL FINISHED GOODS PLANNER AND PHYSICIAN/PROVIDER WITH ANY CHANGE IN CONDITION. [code = SKILLED NURSE WILL MAINTAIN SITUATIONAL AWARENESS FOR SAFETY AND WILL NOTIFY CLINICAL FINISHED GOODS PLANNER AND PHYSICIAN/PROVIDER WITH ANY CHANGE IN [...] CLEAN AND NEATLY DRESSED IN KITCHEN WITH YOUTH COUNSELOR PRESENT D/T MOUSE PROBLEM. 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
--- OUTSIDE RECORDS SUMMARY | 2025-03-18 19:00 | XMS_ITS | Clinical Summary ---
Author Organization Unknown Care Team Providers Care Hat Blocking Operator Name Role Phone YAIMA RASMUSSEN, KAVITA BEST Unavailable Unamirella SPEARS RN, SNEHAL Unavailable Unavailable Payers Payer Name Policy Type Policy Number Effective Date Expira tion Date [employer] MEDICARE ADVANTAGE FFS [id number] MEDICARE - [place] - PDGM [id number] Problems Condition Name Condition Details Condition Category [...] 06-25 00:00: 00 12-31 23:59 :00 No [id number] 2 puff DIRECTED 2 puff DIRECTED (route: inhalation ) Med Classific ation: Respirato ry Therapy Agents bupropion HCl XL 300 mg 24 hr tablet, extended release 06-25 00:00: 00 12-31 23:59 :00 No [id number] 1 tablet DAILY 1 tablet DAILY (route: oral) Med Classific ation: Central Nervous System Agents carbidopa 25 mg-levodopa 100 mg tablet 417 00:00: 00 12-31 23:59 :00 No [id number] 1.5 tablet 4 TIMES DAILY 1.5 tablet 4 TIMES DAILY (route: oral) Med Classific ation: Central Nervous System Agents famotidine 40 mg tablet 417 00:00: 00 09-01 23:59 :00 No [id number] 1 tablet DAILY 1 tablet DAILY (route: oral) Med Classific ation: Gastroint estinal Therapy Agents paroxetine 40 mg tablet 17 00:00: 00 12-31 23:59 :00 No [id number] 1 tablet DAILY 1 tablet DAILY (route: oral) Med Classific ation: Central Nervous System Agents trazodone 50 mg tablet 06-25 00:00: 00 09-01 23:59 :00 No [id number] Per instruc tions BEDTIME Per instructio ns BEDTIME (route: oral) Med Classific ation: Central Nervous System Agents gabapentin 100 mg capsule -24 00:00: 00 09-01 23:59 :00 No [id number] pain Per instruc tions BEDTIME Per instructio ns BEDTIME (route: oral) Med Classific ation: Central Nervous System Agents omeprazole 40 mg capsule,del ayed release -24 00:00: 00 05-20 23:59 :00 No [id number] 1 capsule DAILY 1 capsule DAILY (route: oral) Med Classific ation: Gastroint estinal Therapy Agents gabapentin 100 mg capsule 2023-03 0- 00:00: 00 09-01 23:59 :00 No [id number] Per instruc tions 2 TIMES DAILY Per instructio ns 2 TIMES DAILY (route: oral) Med Classific ation: Central Nervous System Agents famotidine 40 mg tablet 3-16 00:00: 00 12-31 23:59 :00 No [id number] 1 tablet EVERY AM 1 tablet EVERY AM (route: oral) Med Classific ation: Gastroint estinal Therapy Agents Tylenol Arthritis Pain 650 mg tablet,exte nded release 3-21 00:00: 00 12-31 23:59 :00 No [id number] 1 tablet EVERY 8 HOURS 1 tablet EVERY 8 HOURS (route: oral) Med Classific ation: Analgesic , Anti-infl ammatory or Antipyret ic cyclobenzap rine 10 mg tablet 08-05 00:00: 00 09-01 23:59 :00 No [id number] 1 tablet BEDTIME 1 tablet BEDTIME (route: oral) Med Classific ation: Locomotor System meloxicam 15 mg tablet 08-05 00:00: 00 09-01 23:59 :00 No [id number] 1 tablet DAILY 1 tablet DAILY (route: oral) Med Classific ation: Analgesic , Anti-infl ammatory or Antipyret ic cyclobenzap rine 10 mg tablet 09-01 00:00: 00 12-31 23:59 :00 No [id number] 1 tablet BEDTIME 1 tablet BEDTIME (route: oral) Med Classific ation: Locomotor System meloxicam 15 mg tablet 09-01 00:00: 00 12-31 23:59 :00 No [id number] 1 tablet EVERY AM 1 tablet EVERY AM (route: oral) Med Classific ation: Analgesic , Anti-infl ammatory or Antipyret ic trazodone 50 mg tablet 09-01 00:00: 00 12-31 23:59 :00 No [id number] Per instruc tions BEDTIME Per instructio ns BEDTIME (route: oral) Med Classific ation: Central Nervous System Agents erythromyci n 5 mg/gram (0.5 %) eye ointment 2024-03 00:00: 00 Yes [id number] Per instruc tions 4 TIMES DAILY Per instructio ns 4 TIMES DAILY (route: ophthalmic (eye)) Med Classific ation: Ophthalmi c Agents albuterol sulfate HFA 90 mcg/actuati on aerosol inhaler 2024-03 00:00: 00 Yes [id number] 2 puff EVERY 6 HOURS 2 puff EVERY 6 HOURS (route: inhalation ) Med Classific ation: Respirato ry Therapy Agents bupropion HCl XL 300 mg 24 hr tablet, extended release 2024-03 00:00: 00 Yes [id number] 1 tablet EVERY AM 1 tablet EVERY AM (route: oral) Med Classific ation: Central Nervous System Agents carbidopa 25 mg-levodopa 100 mg disintegrat ing tablet 2024-03 00:00: 00 Yes [id number] 1.5 tablet NOON 1.5 tablet NOON (route: oral) Med Classific ation: Central Nervous System Agents carbidopa 25 mg-levodopa 100 mg tablet 2024-03 00:00: 00 Yes [id number] 1.5 tablet EVERY AM 1.5 tablet EVERY AM (route: oral) Med Classific ation: Central Nervous System Agents carbidopa 25 mg-levodopa 100 mg tablet 2024-03 00:00: 00 Yes [id number] 1.5 tablet EVERY PM 1.5 tablet EVERY PM (route: oral) Med Classific ation: Central Nervous System Agents carbidopa 25 mg-levodopa 100 mg tablet 2024-03 00:00: 00 Yes [id number] 1.5 tablet BEDTIME 1.5 tablet BEDTIME (route: oral) Med Classific ation: Central Nervous System Agents cyclobenzap rine 10 mg tablet 2024-03 00:00: 00 Yes [id number] 1 tablet BEDTIME 1 tablet BEDTIME (route: oral) Med Classific ation: Locomotor System famotidine 40 mg tablet 2024-03 00:00: 00 Yes [id number] 1 tablet EVERY AM 1 tablet EVERY AM (route: oral) Med Classific ation: Gastroint estinal Therapy Agents meloxicam 15 mg tablet 2024-03 00:00: 00 Yes [id number] 1 tablet EVERY AM 1 tablet EVERY AM (route: oral) Med Classific ation: Analgesic , Anti-infl ammatory or Antipyret ic paroxetine 40 mg tablet 2024-03 00:00: 00 Yes [id number] 1 tablet EVERY AM 1 tablet EVERY AM (route: oral) Med Classific ation: Central Nervous System Agents trazodone 50 mg tablet 2024-03 00:00: 00 Yes [id number] 1 tablet BEDTIME 1 tablet BEDTIME (route: oral) Med Classific ation: Central Nervous System Agents Tylenol Arthritis Pain 650 mg tablet,exte nded release 2024-03 0-23 00:00: 00 Yes [id number] 1 tablet EVERY 8 HOURS 1 tablet EVERY 8 HOURS (route: oral) Med Classific ation: Analgesic , Anti-infl ammatory or Antipyret ic Farxiga 5 mg tablet 2024-03 1-03 00:00: 00 Yes [id number] 1 tablet EVERY AM 1 tablet EVERY [...] AWARENESS FOR SAFETY AND WILL NOTIFY CLINICAL ACADEMIC SERVICES COORDINATOR AND PHYSICIAN/PROVIDER WITH ANY CHANGE IN CONDITION. [code = SKILLED NURSE WILL MAINTAIN SITUATIONAL AWARENESS FOR SAFETY AND WILL NOTIFY CLINICAL ACADEMIC SERVICES COORDINATOR AND PHYSICIAN/PROVIDER WITH ANY CHANGE IN [...] CLEAN AND NEATLY DRESSED IN KITCHEN WITH HALAL MEAT PACKER PRESENT D/T MOUSE PROBLEM. 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
--- OUTSIDE RECORDS SUMMARY | 2025-03-18 19:00 | XMS_ITS | Clinical Summary ---
Author Organization Unknown Care Team Providers Care Speech Correction Assistant Name Role Phone YAIMA RASMUSSEN, KAVITA BEST Unavailable Unamirella SPEARS RN, SNEHAL Unavailable Unavailable Payers Payer Name Policy Type Policy Number Effective Date Expira tion Date [employer] MEDICARE ADVANTAGE FFS [id number] MEDICARE - [place]GM [id number] Problems Condition Name Condition Details Condition Category [...] 06-25 00:00: 00 12-31 23:59 :00 No [id number] 2 puff DIRECTED 2 puff DIRECTED (route: inhalation ) Med Classific ation: Respirato ry Therapy Agents bupropion HCl XL 300 mg 24 hr tablet, extended release 06-25 00:00: 00 12-31 23:59 :00 No [id number] 1 tablet DAILY 1 tablet DAILY (route: oral) Med Classific ation: Central Nervous System Agents carbidopa 25 mg-levodopa 100 mg tablet 417 00:00: 00 12-31 23:59 :00 No [id number] 1.5 tablet 4 TIMES DAILY 1.5 tablet 4 TIMES DAILY (route: oral) Med Classific ation: Central Nervous System Agents famotidine 40 mg tablet 417 00:00: 00 09-01 23:59 :00 No [id number] 1 tablet DAILY 1 tablet DAILY (route: oral) Med Classific ation: Gastroint estinal Therapy Agents paroxetine 40 mg tablet 17 00:00: 00 12-31 23:59 :00 No [id number] 1 tablet DAILY 1 tablet DAILY (route: oral) Med Classific ation: Central Nervous System Agents trazodone 50 mg tablet 06-25 00:00: 00 09-01 23:59 :00 No [id number] Per instruc tions BEDTIME Per instructio ns BEDTIME (route: oral) Med Classific ation: Central Nervous System Agents gabapentin 100 mg capsule -24 00:00: 00 09-01 23:59 :00 No [id number] pain Per instruc tions BEDTIME Per instructio ns BEDTIME (route: oral) Med Classific ation: Central Nervous System Agents omeprazole 40 mg capsule,del ayed release -24 00:00: 00 05-20 23:59 :00 No [id number] 1 capsule DAILY 1 capsule DAILY (route: oral) Med Classific ation: Gastroint estinal Therapy Agents gabapentin 100 mg capsule 2023-03 0- 00:00: 00 09-01 23:59 :00 No [id number] Per instruc tions 2 TIMES DAILY Per instructio ns 2 TIMES DAILY (route: oral) Med Classific ation: Central Nervous System Agents famotidine 40 mg tablet 3-16 00:00: 00 12-31 23:59 :00 No [id number] 1 tablet EVERY AM 1 tablet EVERY AM (route: oral) Med Classific ation: Gastroint estinal Therapy Agents Tylenol Arthritis Pain 650 mg tablet,exte nded release 3-21 00:00: 00 12-31 23:59 :00 No [id number] 1 tablet EVERY 8 HOURS 1 tablet EVERY 8 HOURS (route: oral) Med Classific ation: Analgesic , Anti-infl ammatory or Antipyret ic cyclobenzap rine 10 mg tablet 08-05 00:00: 00 09-01 23:59 :00 No [id number] 1 tablet BEDTIME 1 tablet BEDTIME (route: oral) Med Classific ation: Locomotor System meloxicam 15 mg tablet 08-05 00:00: 00 09-01 23:59 :00 No [id number] 1 tablet DAILY 1 tablet DAILY (route: oral) Med Classific ation: Analgesic , Anti-infl ammatory or Antipyret ic cyclobenzap rine 10 mg tablet 09-01 00:00: 00 12-31 23:59 :00 No [id number] 1 tablet BEDTIME 1 tablet BEDTIME (route: oral) Med Classific ation: Locomotor System meloxicam 15 mg tablet 09-01 00:00: 00 12-31 23:59 :00 No [id number] 1 tablet EVERY AM 1 tablet EVERY AM (route: oral) Med Classific ation: Analgesic , Anti-infl ammatory or Antipyret ic trazodone 50 mg tablet 09-01 00:00: 00 12-31 23:59 :00 No [id number] Per instruc tions BEDTIME Per instructio ns BEDTIME (route: oral) Med Classific ation: Central Nervous System Agents erythromyci n 5 mg/gram (0.5 %) eye ointment 2024-03 00:00: 00 Yes [id number] Per instruc tions 4 TIMES DAILY Per instructio ns 4 TIMES DAILY (route: ophthalmic (eye)) Med Classific ation: Ophthalmi c Agents albuterol sulfate HFA 90 mcg/actuati on aerosol inhaler 2024-03 00:00: 00 Yes [id number] 2 puff EVERY 6 HOURS 2 puff EVERY 6 HOURS (route: inhalation ) Med Classific ation: Respirato ry Therapy Agents bupropion HCl XL 300 mg 24 hr tablet, extended release 2024-03 00:00: 00 Yes [id number] 1 tablet EVERY AM 1 tablet EVERY AM (route: oral) Med Classific ation: Central Nervous System Agents carbidopa 25 mg-levodopa 100 mg disintegrat ing tablet 2024-03 00:00: 00 Yes [id number] 1.5 tablet NOON 1.5 tablet NOON (route: oral) Med Classific ation: Central Nervous System Agents carbidopa 25 mg-levodopa 100 mg tablet 2024-03 00:00: 00 Yes [id number] 1.5 tablet EVERY AM 1.5 tablet EVERY AM (route: oral) Med Classific ation: Central Nervous System Agents carbidopa 25 mg-levodopa 100 mg tablet 2024-03 00:00: 00 Yes [id number] 1.5 tablet EVERY PM 1.5 tablet EVERY PM (route: oral) Med Classific ation: Central Nervous System Agents carbidopa 25 mg-levodopa 100 mg tablet 2024-03 00:00: 00 Yes [id number] 1.5 tablet BEDTIME 1.5 tablet BEDTIME (route: oral) Med Classific ation: Central Nervous System Agents cyclobenzap rine 10 mg tablet 2024-03 00:00: 00 Yes [id number] 1 tablet BEDTIME 1 tablet BEDTIME (route: oral) Med Classific ation: Locomotor System famotidine 40 mg tablet 2024-03 00:00: 00 Yes [id number] 1 tablet EVERY AM 1 tablet EVERY AM (route: oral) Med Classific ation: Gastroint estinal Therapy Agents meloxicam 15 mg tablet 2024-03 00:00: 00 Yes [id number] 1 tablet EVERY AM 1 tablet EVERY AM (route: oral) Med Classific ation: Analgesic , Anti-infl ammatory or Antipyret ic paroxetine 40 mg tablet 2024-03 00:00: 00 Yes [id number] 1 tablet EVERY AM 1 tablet EVERY AM (route: oral) Med Classific ation: Central Nervous System Agents trazodone 50 mg tablet 2024-03 00:00: 00 Yes [id number] 1 tablet BEDTIME 1 tablet BEDTIME (route: oral) Med Classific ation: Central Nervous System Agents Tylenol Arthritis Pain 650 mg tablet,exte nded release 2024-03 0-23 00:00: 00 Yes [id number] 1 tablet EVERY 8 HOURS 1 tablet EVERY 8 HOURS (route: oral) Med Classific ation: Analgesic , Anti-infl ammatory or Antipyret ic Farxiga 5 mg tablet 2024-03 1-03 00:00: 00 Yes [id number] 1 tablet EVERY AM 1 tablet EVERY [...] AWARENESS FOR SAFETY AND WILL NOTIFY CLINICAL TACTICAL INTELLIGENCE OFFICER AND PHYSICIAN/PROVIDER WITH ANY CHANGE IN CONDITION. [code = SKILLED NURSE WILL MAINTAIN SITUATIONAL AWARENESS FOR SAFETY AND WILL NOTIFY CLINICAL TACTICAL INTELLIGENCE OFFICER AND PHYSICIAN/PROVIDER WITH ANY CHANGE IN [...] CLEAN AND NEATLY DRESSED IN KITCHEN WITH SAIL CUTTER PRESENT D/T MOUSE PROBLEM. HER HOME IS [...] WITH HER MED PP PER HER MED PHYSIOGNOMIST AND DENIES ANY ADVERSE EFFECTS.</paragraph> Encounters Start Date/Time End Date/Time Encounter Type Admission Type Attending Clinicians Care Facility Care Department Encounter ID Discharge Date Discharge Status Discharge Condition Discharge Reason Percent Goals Met 2025-01-19 00:00:00 2025-03-19 00:00:00 Outpatient RECERTIFIC ATSNEHAL VELA [facility] [id number] 76.00
--- OUTSIDE RECORDS SUMMARY | 2025-03-18 19:00 | XMS_ITS | Clinical Summary ---
Author Organization Unknown Care Team Providers Care Radio Control Crane Operator Name Role Phone YAIMA RASMUSSEN, KAVITA BEST Unavailable Unamirella SPEARS RN, SNEHAL Unavailable Unavailable Payers Payer Name Policy Type Policy Number Effective Date Expira tion Date [employer] MEDICARE ADVANTAGE FFS [id number] MEDICARE - [place]GM [id number] Problems Condition Name Condition Details Condition Category [...] 06-25 00:00: 00 12-31 23:59 :00 No [id number] 2 puff DIRECTED 2 puff DIRECTED (route: inhalation ) Med Classific ation: Respirato ry Therapy Agents bupropion HCl XL 300 mg 24 hr tablet, extended release 06-25 00:00: 00 12-31 23:59 :00 No [id number] 1 tablet DAILY 1 tablet DAILY (route: oral) Med Classific ation: Central Nervous System Agents carbidopa 25 mg-levodopa 100 mg tablet 417 00:00: 00 12-31 23:59 :00 No [id number] 1.5 tablet 4 TIMES DAILY 1.5 tablet 4 TIMES DAILY (route: oral) Med Classific ation: Central Nervous System Agents famotidine 40 mg tablet 417 00:00: 00 09-01 23:59 :00 No [id number] 1 tablet DAILY 1 tablet DAILY (route: oral) Med Classific ation: Gastroint estinal Therapy Agents paroxetine 40 mg tablet 17 00:00: 00 12-31 23:59 :00 No [id number] 1 tablet DAILY 1 tablet DAILY (route: oral) Med Classific ation: Central Nervous System Agents trazodone 50 mg tablet 06-25 00:00: 00 09-01 23:59 :00 No [id number] Per instruc tions BEDTIME Per instructio ns BEDTIME (route: oral) Med Classific ation: Central Nervous System Agents gabapentin 100 mg capsule -24 00:00: 00 09-01 23:59 :00 No [id number] pain Per instruc tions BEDTIME Per instructio ns BEDTIME (route: oral) Med Classific ation: Central Nervous System Agents omeprazole 40 mg capsule,del ayed release -24 00:00: 00 05-20 23:59 :00 No [id number] 1 capsule DAILY 1 capsule DAILY (route: oral) Med Classific ation: Gastroint estinal Therapy Agents gabapentin 100 mg capsule 2023-03 0- 00:00: 00 09-01 23:59 :00 No [id number] Per instruc tions 2 TIMES DAILY Per instructio ns 2 TIMES DAILY (route: oral) Med Classific ation: Central Nervous System Agents famotidine 40 mg tablet 3-16 00:00: 00 12-31 23:59 :00 No [id number] 1 tablet EVERY AM 1 tablet EVERY AM (route: oral) Med Classific ation: Gastroint estinal Therapy Agents Tylenol Arthritis Pain 650 mg tablet,exte nded release 3-21 00:00: 00 12-31 23:59 :00 No [id number] 1 tablet EVERY 8 HOURS 1 tablet EVERY 8 HOURS (route: oral) Med Classific ation: Analgesic , Anti-infl ammatory or Antipyret ic cyclobenzap rine 10 mg tablet 08-05 00:00: 00 09-01 23:59 :00 No [id number] 1 tablet BEDTIME 1 tablet BEDTIME (route: oral) Med Classific ation: Locomotor System meloxicam 15 mg tablet 08-05 00:00: 00 09-01 23:59 :00 No [id number] 1 tablet DAILY 1 tablet DAILY (route: oral) Med Classific ation: Analgesic , Anti-infl ammatory or Antipyret ic cyclobenzap rine 10 mg tablet 09-01 00:00: 00 12-31 23:59 :00 No [id number] 1 tablet BEDTIME 1 tablet BEDTIME (route: oral) Med Classific ation: Locomotor System meloxicam 15 mg tablet 09-01 00:00: 00 12-31 23:59 :00 No [id number] 1 tablet EVERY AM 1 tablet EVERY AM (route: oral) Med Classific ation: Analgesic , Anti-infl ammatory or Antipyret ic trazodone 50 mg tablet 09-01 00:00: 00 12-31 23:59 :00 No [id number] Per instruc tions BEDTIME Per instructio ns BEDTIME (route: oral) Med Classific ation: Central Nervous System Agents erythromyci n 5 mg/gram (0.5 %) eye ointment 2024-03 00:00: 00 Yes [id number] Per instruc tions 4 TIMES DAILY Per instructio ns 4 TIMES DAILY (route: ophthalmic (eye)) Med Classific ation: Ophthalmi c Agents albuterol sulfate HFA 90 mcg/actuati on aerosol inhaler 2024-03 00:00: 00 Yes [id number] 2 puff EVERY 6 HOURS 2 puff EVERY 6 HOURS (route: inhalation ) Med Classific ation: Respirato ry Therapy Agents bupropion HCl XL 300 mg 24 hr tablet, extended release 2024-03 00:00: 00 Yes [id number] 1 tablet EVERY AM 1 tablet EVERY AM (route: oral) Med Classific ation: Central Nervous System Agents carbidopa 25 mg-levodopa 100 mg disintegrat ing tablet 2024-03 00:00: 00 Yes [id number] 1.5 tablet NOON 1.5 tablet NOON (route: oral) Med Classific ation: Central Nervous System Agents carbidopa 25 mg-levodopa 100 mg tablet 2024-03 00:00: 00 Yes [id number] 1.5 tablet EVERY AM 1.5 tablet EVERY AM (route: oral) Med Classific ation: Central Nervous System Agents carbidopa 25 mg-levodopa 100 mg tablet 2024-03 00:00: 00 Yes [id number] 1.5 tablet EVERY PM 1.5 tablet EVERY PM (route: oral) Med Classific ation: Central Nervous System Agents carbidopa 25 mg-levodopa 100 mg tablet 2024-03 00:00: 00 Yes [id number] 1.5 tablet BEDTIME 1.5 tablet BEDTIME (route: oral) Med Classific ation: Central Nervous System Agents cyclobenzap rine 10 mg tablet 2024-03 00:00: 00 Yes [id number] 1 tablet BEDTIME 1 tablet BEDTIME (route: oral) Med Classific ation: Locomotor System famotidine 40 mg tablet 2024-03 00:00: 00 Yes [id number] 1 tablet EVERY AM 1 tablet EVERY AM (route: oral) Med Classific ation: Gastroint estinal Therapy Agents meloxicam 15 mg tablet 2024-03 00:00: 00 Yes [id number] 1 tablet EVERY AM 1 tablet EVERY AM (route: oral) Med Classific ation: Analgesic , Anti-infl ammatory or Antipyret ic paroxetine 40 mg tablet 2024-03 00:00: 00 Yes [id number] 1 tablet EVERY AM 1 tablet EVERY AM (route: oral) Med Classific ation: Central Nervous System Agents trazodone 50 mg tablet 2024-03 00:00: 00 Yes [id number] 1 tablet BEDTIME 1 tablet BEDTIME (route: oral) Med Classific ation: Central Nervous System Agents Tylenol Arthritis Pain 650 mg tablet,exte nded release 2024-03 0-23 00:00: 00 Yes [id number] 1 tablet EVERY 8 HOURS 1 tablet EVERY 8 HOURS (route: oral) Med Classific ation: Analgesic , Anti-infl ammatory or Antipyret ic Farxiga 5 mg tablet 2024-03 1-03 00:00: 00 Yes [id number] 1 tablet EVERY AM 1 tablet EVERY [...] AWARENESS FOR SAFETY AND WILL NOTIFY CLINICAL HELP DESK SUPPORT AND PHYSICIAN/PROVIDER WITH ANY CHANGE IN CONDITION. [code = SKILLED NURSE WILL MAINTAIN SITUATIONAL AWARENESS FOR SAFETY AND WILL NOTIFY CLINICAL HELP DESK SUPPORT AND PHYSICIAN/PROVIDER WITH ANY CHANGE IN CONDITION.] [...] CLEAN AND NEATLY DRESSED IN KITCHEN WITH MEDICAL INSURANCE CODING SPECIALIST PRESENT D/T MOUSE PROBLEM. HER HOME [...] WITH HER MED PP PER HER MED HUMAN RESOURCES HR REPRESENTATIVE AND DENIES ANY ADVERSE EFFECTS.</paragraph> Encounters Start Date/Time End Date/Time Encounter Type Admission Type Attending Clinicians Care Facility Care Department Encounter ID Discharge Date Discharge Status Discharge Condition Discharge Reason Percent Goals Met 2025-01-19 00:00:00 2025-03-19 00:00:00 Outpatient RECERTIFIC ATSNEHAL VELA [facility] [id number] 76.00
--- OUTSIDE RECORDS SUMMARY | 2025-03-18 19:00 | XMS_ITS | Clinical Summary ---
Author Organization Unknown Care Team Providers Care Chief Chemist Name Role Phone YAIMA RASMUSSEN, KAVITA BEST Unavailable Unamirella SPEARS RN, SNEHAL Unavailable Unavailable Payers Payer Name Policy Type Policy Number Effective Date Expira tion Date [employer] MEDICARE ADVANTAGE FFS [id number] MEDICARE - [place] PDGM [id number] Problems Condition Name Condition Details Condition Category [...] 06-25 00:00: 00 12-31 23:59 :00 No [id number] 2 puff DIRECTED 2 puff DIRECTED (route: inhalation ) Med Classific ation: Respirato ry Therapy Agents bupropion HCl XL 300 mg 24 hr tablet, extended release 06-25 00:00: 00 12-31 23:59 :00 No [id number] 1 tablet DAILY 1 tablet DAILY (route: oral) Med Classific ation: Central Nervous System Agents carbidopa 25 mg-levodopa 100 mg tablet 417 00:00: 00 12-31 23:59 :00 No [id number] 1.5 tablet 4 TIMES DAILY 1.5 tablet 4 TIMES DAILY (route: oral) Med Classific ation: Central Nervous System Agents famotidine 40 mg tablet 417 00:00: 00 09-01 23:59 :00 No [id number] 1 tablet DAILY 1 tablet DAILY (route: oral) Med Classific ation: Gastroint estinal Therapy Agents paroxetine 40 mg tablet 17 00:00: 00 12-31 23:59 :00 No [id number] 1 tablet DAILY 1 tablet DAILY (route: oral) Med Classific ation: Central Nervous System Agents trazodone 50 mg tablet 06-25 00:00: 00 09-01 23:59 :00 No [id number] Per instruc tions BEDTIME Per instructio ns BEDTIME (route: oral) Med Classific ation: Central Nervous System Agents gabapentin 100 mg capsule -24 00:00: 00 09-01 23:59 :00 No [id number] pain Per instruc tions BEDTIME Per instructio ns BEDTIME (route: oral) Med Classific ation: Central Nervous System Agents omeprazole 40 mg capsule,del ayed release -24 00:00: 00 05-20 23:59 :00 No [id number] 1 capsule DAILY 1 capsule DAILY (route: oral) Med Classific ation: Gastroint estinal Therapy Agents gabapentin 100 mg capsule 2023-03 0- 00:00: 00 09-01 23:59 :00 No [id number] Per instruc tions 2 TIMES DAILY Per instructio ns 2 TIMES DAILY (route: oral) Med Classific ation: Central Nervous System Agents famotidine 40 mg tablet 3-16 00:00: 00 12-31 23:59 :00 No [id number] 1 tablet EVERY AM 1 tablet EVERY AM (route: oral) Med Classific ation: Gastroint estinal Therapy Agents Tylenol Arthritis Pain 650 mg tablet,exte nded release 3-21 00:00: 00 12-31 23:59 :00 No [id number] 1 tablet EVERY 8 HOURS 1 tablet EVERY 8 HOURS (route: oral) Med Classific ation: Analgesic , Anti-infl ammatory or Antipyret ic cyclobenzap rine 10 mg tablet 08-05 00:00: 00 09-01 23:59 :00 No [id number] 1 tablet BEDTIME 1 tablet BEDTIME (route: oral) Med Classific ation: Locomotor System meloxicam 15 mg tablet 08-05 00:00: 00 09-01 23:59 :00 No [id number] 1 tablet DAILY 1 tablet DAILY (route: oral) Med Classific ation: Analgesic , Anti-infl ammatory or Antipyret ic cyclobenzap rine 10 mg tablet 09-01 00:00: 00 12-31 23:59 :00 No [id number] 1 tablet BEDTIME 1 tablet BEDTIME (route: oral) Med Classific ation: Locomotor System meloxicam 15 mg tablet 09-01 00:00: 00 12-31 23:59 :00 No [id number] 1 tablet EVERY AM 1 tablet EVERY AM (route: oral) Med Classific ation: Analgesic , Anti-infl ammatory or Antipyret ic trazodone 50 mg tablet 09-01 00:00: 00 12-31 23:59 :00 No [id number] Per instruc tions BEDTIME Per instructio ns BEDTIME (route: oral) Med Classific ation: Central Nervous System Agents erythromyci n 5 mg/gram (0.5 %) eye ointment 2024-03 00:00: 00 Yes [id number] Per instruc tions 4 TIMES DAILY Per instructio ns 4 TIMES DAILY (route: ophthalmic (eye)) Med Classific ation: Ophthalmi c Agents albuterol sulfate HFA 90 mcg/actuati on aerosol inhaler 2024-03 00:00: 00 Yes [id number] 2 puff EVERY 6 HOURS 2 puff EVERY 6 HOURS (route: inhalation ) Med Classific ation: Respirato ry Therapy Agents bupropion HCl XL 300 mg 24 hr tablet, extended release 2024-03 00:00: 00 Yes [id number] 1 tablet EVERY AM 1 tablet EVERY AM (route: oral) Med Classific ation: Central Nervous System Agents carbidopa 25 mg-levodopa 100 mg disintegrat ing tablet 2024-03 00:00: 00 Yes [id number] 1.5 tablet NOON 1.5 tablet NOON (route: oral) Med Classific ation: Central Nervous System Agents carbidopa 25 mg-levodopa 100 mg tablet 2024-03 00:00: 00 Yes [id number] 1.5 tablet EVERY AM 1.5 tablet EVERY AM (route: oral) Med Classific ation: Central Nervous System Agents carbidopa 25 mg-levodopa 100 mg tablet 2024-03 00:00: 00 Yes [id number] 1.5 tablet EVERY PM 1.5 tablet EVERY PM (route: oral) Med Classific ation: Central Nervous System Agents carbidopa 25 mg-levodopa 100 mg tablet 2024-03 00:00: 00 Yes [id number] 1.5 tablet BEDTIME 1.5 tablet BEDTIME (route: oral) Med Classific ation: Central Nervous System Agents cyclobenzap rine 10 mg tablet 2024-03 00:00: 00 Yes [id number] 1 tablet BEDTIME 1 tablet BEDTIME (route: oral) Med Classific ation: Locomotor System famotidine 40 mg tablet 2024-03 00:00: 00 Yes [id number] 1 tablet EVERY AM 1 tablet EVERY AM (route: oral) Med Classific ation: Gastroint estinal Therapy Agents meloxicam 15 mg tablet 2024-03 00:00: 00 Yes [id number] 1 tablet EVERY AM 1 tablet EVERY AM (route: oral) Med Classific ation: Analgesic , Anti-infl ammatory or Antipyret ic paroxetine 40 mg tablet 2024-03 00:00: 00 Yes [id number] 1 tablet EVERY AM 1 tablet EVERY AM (route: oral) Med Classific ation: Central Nervous System Agents trazodone 50 mg tablet 2024-03 00:00: 00 Yes [id number] 1 tablet BEDTIME 1 tablet BEDTIME (route: oral) Med Classific ation: Central Nervous System Agents Tylenol Arthritis Pain 650 mg tablet,exte nded release 2024-03 0-23 00:00: 00 Yes [id number] 1 tablet EVERY 8 HOURS 1 tablet EVERY 8 HOURS (route: oral) Med Classific ation: Analgesic , Anti-infl ammatory or Antipyret ic Farxiga 5 mg tablet 2024-03 1-03 00:00: 00 Yes [id number] 1 tablet EVERY AM 1 tablet EVERY [...] AWARENESS FOR SAFETY AND WILL NOTIFY CLINICAL LINE CLEARANCE FOREMAN AND PHYSICIAN/PROVIDER WITH ANY CHANGE IN CONDITION. [code = SKILLED NURSE WILL MAINTAIN SITUATIONAL AWARENESS FOR SAFETY AND WILL NOTIFY CLINICAL LINE CLEARANCE FOREMAN AND PHYSICIAN/PROVIDER WITH ANY CHANGE IN CONDITION.] [...] CLEAN AND NEATLY DRESSED IN KITCHEN WITH TECHNOLOGY ENGINEER PRESENT D/T MOUSE PROBLEM. 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
--- OUTSIDE RECORDS SUMMARY | 2025-03-18 19:00 | XMS_ITS | Clinical Summary ---
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 Name Role Phone YAIMA RASMUSSEN, KAVITA BEST Unavailable Unamirella SPEARS RN, SNEHAL Unavailable Unavailable Payers Payer Name Policy Type Policy Number Effective Date Expira tion Date [employer] MEDICARE ADVANTAGE FFS [id number] MEDICARE - [place] - PDGM [id number] Problems Condition Name Condition Details Condition Category [...] 06-25 00:00: 00 12-31 23:59 :00 No [id number] 2 puff DIRECTED 2 puff DIRECTED (route: inhalation ) Med Classific ation: Respirato ry Therapy Agents bupropion HCl XL 300 mg 24 hr tablet, extended release 06-25 00:00: 00 12-31 23:59 :00 No [id number] 1 tablet DAILY 1 tablet DAILY (route: oral) Med Classific ation: Central Nervous System Agents carbidopa 25 mg-levodopa 100 mg tablet 417 00:00: 00 12-31 23:59 :00 No [id number] 1.5 tablet 4 TIMES DAILY 1.5 tablet 4 TIMES DAILY (route: oral) Med Classific ation: Central Nervous System Agents famotidine 40 mg tablet 417 00:00: 00 09-01 23:59 :00 No [id number] 1 tablet DAILY 1 tablet DAILY (route: oral) Med Classific ation: Gastroint estinal Therapy Agents paroxetine 40 mg tablet 17 00:00: 00 12-31 23:59 :00 No [id number] 1 tablet DAILY 1 tablet DAILY (route: oral) Med Classific ation: Central Nervous System Agents trazodone 50 mg tablet 06-25 00:00: 00 09-01 23:59 :00 No [id number] Per instruc tions BEDTIME Per instructio ns BEDTIME (route: oral) Med Classific ation: Central Nervous System Agents gabapentin 100 mg capsule -24 00:00: 00 09-01 23:59 :00 No [id number] pain Per instruc tions BEDTIME Per instructio ns BEDTIME (route: oral) Med Classific ation: Central Nervous System Agents omeprazole 40 mg capsule,del ayed release -24 00:00: 00 05-20 23:59 :00 No [id number] 1 capsule DAILY 1 capsule DAILY (route: oral) Med Classific ation: Gastroint estinal Therapy Agents gabapentin 100 mg capsule 2023-03 0- 00:00: 00 09-01 23:59 :00 No [id number] Per instruc tions 2 TIMES DAILY Per instructio ns 2 TIMES DAILY (route: oral) Med Classific ation: Central Nervous System Agents famotidine 40 mg tablet 3-16 00:00: 00 12-31 23:59 :00 No [id number] 1 tablet EVERY AM 1 tablet EVERY AM (route: oral) Med Classific ation: Gastroint estinal Therapy Agents Tylenol Arthritis Pain 650 mg tablet,exte nded release 3-21 00:00: 00 12-31 23:59 :00 No [id number] 1 tablet EVERY 8 HOURS 1 tablet EVERY 8 HOURS (route: oral) Med Classific ation: Analgesic , Anti-infl ammatory or Antipyret ic cyclobenzap rine 10 mg tablet 08-05 00:00: 00 09-01 23:59 :00 No [id number] 1 tablet BEDTIME 1 tablet BEDTIME (route: oral) Med Classific ation: Locomotor System meloxicam 15 mg tablet 08-05 00:00: 00 09-01 23:59 :00 No [id number] 1 tablet DAILY 1 tablet DAILY (route: oral) Med Classific ation: Analgesic , Anti-infl ammatory or Antipyret ic cyclobenzap rine 10 mg tablet 09-01 00:00: 00 12-31 23:59 :00 No [id number] 1 tablet BEDTIME 1 tablet BEDTIME (route: oral) Med Classific ation: Locomotor System meloxicam 15 mg tablet 09-01 00:00: 00 12-31 23:59 :00 No [id number] 1 tablet EVERY AM 1 tablet EVERY AM (route: oral) Med Classific ation: Analgesic , Anti-infl ammatory or Antipyret ic trazodone 50 mg tablet 09-01 00:00: 00 12-31 23:59 :00 No [id number] Per instruc tions BEDTIME Per instructio ns BEDTIME (route: oral) Med Classific ation: Central Nervous System Agents erythromyci n 5 mg/gram (0.5 %) eye ointment 2024-03 00:00: 00 Yes [id number] Per instruc tions 4 TIMES DAILY Per instructio ns 4 TIMES DAILY (route: ophthalmic (eye)) Med Classific ation: Ophthalmi c Agents albuterol sulfate HFA 90 mcg/actuati on aerosol inhaler 2024-03 00:00: 00 Yes [id number] 2 puff EVERY 6 HOURS 2 puff EVERY 6 HOURS (route: inhalation ) Med Classific ation: Respirato ry Therapy Agents bupropion HCl XL 300 mg 24 hr tablet, extended release 2024-03 00:00: 00 Yes [id number] 1 tablet EVERY AM 1 tablet EVERY AM (route: oral) Med Classific ation: Central Nervous System Agents carbidopa 25 mg-levodopa 100 mg disintegrat ing tablet 2024-03 00:00: 00 Yes [id number] 1.5 tablet NOON 1.5 tablet NOON (route: oral) Med Classific ation: Central Nervous System Agents carbidopa 25 mg-levodopa 100 mg tablet 2024-03 00:00: 00 Yes [id number] 1.5 tablet EVERY AM 1.5 tablet EVERY AM (route: oral) Med Classific ation: Central Nervous System Agents carbidopa 25 mg-levodopa 100 mg tablet 2024-03 00:00: 00 Yes [id number] 1.5 tablet EVERY PM 1.5 tablet EVERY PM (route: oral) Med Classific ation: Central Nervous System Agents carbidopa 25 mg-levodopa 100 mg tablet 2024-03 00:00: 00 Yes [id number] 1.5 tablet BEDTIME 1.5 tablet BEDTIME (route: oral) Med Classific ation: Central Nervous System Agents cyclobenzap rine 10 mg tablet 2024-03 00:00: 00 Yes [id number] 1 tablet BEDTIME 1 tablet BEDTIME (route: oral) Med Classific ation: Locomotor System famotidine 40 mg tablet 2024-03 00:00: 00 Yes [id number] 1 tablet EVERY AM 1 tablet EVERY AM (route: oral) Med Classific ation: Gastroint estinal Therapy Agents meloxicam 15 mg tablet 2024-03 00:00: 00 Yes [id number] 1 tablet EVERY AM 1 tablet EVERY AM (route: oral) Med Classific ation: Analgesic , Anti-infl ammatory or Antipyret ic paroxetine 40 mg tablet 2024-03 00:00: 00 Yes [id number] 1 tablet EVERY AM 1 tablet EVERY AM (route: oral) Med Classific ation: Central Nervous System Agents trazodone 50 mg tablet 2024-03 00:00: 00 Yes [id number] 1 tablet BEDTIME 1 tablet BEDTIME (route: oral) Med Classific ation: Central Nervous System Agents Tylenol Arthritis Pain 650 mg tablet,exte nded release 2024-03 0-23 00:00: 00 Yes [id number] 1 tablet EVERY 8 HOURS 1 tablet EVERY 8 HOURS (route: oral) Med Classific ation: Analgesic , Anti-infl ammatory or Antipyret ic Farxiga 5 mg tablet 2024-03 1-03 00:00: 00 Yes [id number] 1 tablet EVERY AM 1 tablet EVERY [...] AWARENESS FOR SAFETY AND WILL NOTIFY CLINICAL CARDIOLOGY COORDINATOR AND PHYSICIAN/PROVIDER WITH ANY CHANGE IN CONDITION. [code = SKILLED NURSE WILL MAINTAIN SITUATIONAL AWARENESS FOR SAFETY AND WILL NOTIFY CLINICAL CARDIOLOGY COORDINATOR AND PHYSICIAN/PROVIDER WITH ANY CHANGE IN [...] CLEAN AND NEATLY DRESSED IN KITCHEN WITH LINE RUNNER PRESENT D/T MOUSE PROBLEM. 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
--- OUTSIDE RECORDS SUMMARY | 2025-03-18 19:00 | XMS_ITS | Clinical Summary ---
Author Organization Unknown Care Team Providers Care Quill Reamer Name Role Phone YAIMA RASMUSSEN, KAVITA BEST Unavailable Unamirella SPEARS RN, SNEHAL Unavailable Unavailable Payers Payer Name Policy Type Policy Number Effective Date Expira tion Date [employer] MEDICARE ADVANTAGE FFS [id number] MEDICARE - [place]GM [id number] Problems Condition Name Condition Details Condition Category [...] 06-25 00:00: 00 12-31 23:59 :00 No [id number] 2 puff DIRECTED 2 puff DIRECTED (route: inhalation ) Med Classific ation: Respirato ry Therapy Agents bupropion HCl XL 300 mg 24 hr tablet, extended release 06-25 00:00: 00 12-31 23:59 :00 No [id number] 1 tablet DAILY 1 tablet DAILY (route: oral) Med Classific ation: Central Nervous System Agents carbidopa 25 mg-levodopa 100 mg tablet 417 00:00: 00 12-31 23:59 :00 No [id number] 1.5 tablet 4 TIMES DAILY 1.5 tablet 4 TIMES DAILY (route: oral) Med Classific ation: Central Nervous System Agents famotidine 40 mg tablet 417 00:00: 00 09-01 23:59 :00 No [id number] 1 tablet DAILY 1 tablet DAILY (route: oral) Med Classific ation: Gastroint estinal Therapy Agents paroxetine 40 mg tablet 17 00:00: 00 12-31 23:59 :00 No [id number] 1 tablet DAILY 1 tablet DAILY (route: oral) Med Classific ation: Central Nervous System Agents trazodone 50 mg tablet 06-25 00:00: 00 09-01 23:59 :00 No [id number] Per instruc tions BEDTIME Per instructio ns BEDTIME (route: oral) Med Classific ation: Central Nervous System Agents gabapentin 100 mg capsule -24 00:00: 00 09-01 23:59 :00 No [id number] pain Per instruc tions BEDTIME Per instructio ns BEDTIME (route: oral) Med Classific ation: Central Nervous System Agents omeprazole 40 mg capsule,del ayed release -24 00:00: 00 05-20 23:59 :00 No [id number] 1 capsule DAILY 1 capsule DAILY (route: oral) Med Classific ation: Gastroint estinal Therapy Agents gabapentin 100 mg capsule 2023-03 0- 00:00: 00 09-01 23:59 :00 No [id number] Per instruc tions 2 TIMES DAILY Per instructio ns 2 TIMES DAILY (route: oral) Med Classific ation: Central Nervous System Agents famotidine 40 mg tablet 3-16 00:00: 00 12-31 23:59 :00 No [id number] 1 tablet EVERY AM 1 tablet EVERY AM (route: oral) Med Classific ation: Gastroint estinal Therapy Agents Tylenol Arthritis Pain 650 mg tablet,exte nded release 3-21 00:00: 00 12-31 23:59 :00 No [id number] 1 tablet EVERY 8 HOURS 1 tablet EVERY 8 HOURS (route: oral) Med Classific ation: Analgesic , Anti-infl ammatory or Antipyret ic cyclobenzap rine 10 mg tablet 08-05 00:00: 00 09-01 23:59 :00 No [id number] 1 tablet BEDTIME 1 tablet BEDTIME (route: oral) Med Classific ation: Locomotor System meloxicam 15 mg tablet 08-05 00:00: 00 09-01 23:59 :00 No [id number] 1 tablet DAILY 1 tablet DAILY (route: oral) Med Classific ation: Analgesic , Anti-infl ammatory or Antipyret ic cyclobenzap rine 10 mg tablet 09-01 00:00: 00 12-31 23:59 :00 No [id number] 1 tablet BEDTIME 1 tablet BEDTIME (route: oral) Med Classific ation: Locomotor System meloxicam 15 mg tablet 09-01 00:00: 00 12-31 23:59 :00 No [id number] 1 tablet EVERY AM 1 tablet EVERY AM (route: oral) Med Classific ation: Analgesic , Anti-infl ammatory or Antipyret ic trazodone 50 mg tablet 09-01 00:00: 00 12-31 23:59 :00 No [id number] Per instruc tions BEDTIME Per instructio ns BEDTIME (route: oral) Med Classific ation: Central Nervous System Agents erythromyci n 5 mg/gram (0.5 %) eye ointment 2024-03 00:00: 00 Yes [id number] Per instruc tions 4 TIMES DAILY Per instructio ns 4 TIMES DAILY (route: ophthalmic (eye)) Med Classific ation: Ophthalmi c Agents albuterol sulfate HFA 90 mcg/actuati on aerosol inhaler 2024-03 00:00: 00 Yes [id number] 2 puff EVERY 6 HOURS 2 puff EVERY 6 HOURS (route: inhalation ) Med Classific ation: Respirato ry Therapy Agents bupropion HCl XL 300 mg 24 hr tablet, extended release 2024-03 00:00: 00 Yes [id number] 1 tablet EVERY AM 1 tablet EVERY AM (route: oral) Med Classific ation: Central Nervous System Agents carbidopa 25 mg-levodopa 100 mg disintegrat ing tablet 2024-03 00:00: 00 Yes [id number] 1.5 tablet NOON 1.5 tablet NOON (route: oral) Med Classific ation: Central Nervous System Agents carbidopa 25 mg-levodopa 100 mg tablet 2024-03 00:00: 00 Yes [id number] 1.5 tablet EVERY AM 1.5 tablet EVERY AM (route: oral) Med Classific ation: Central Nervous System Agents carbidopa 25 mg-levodopa 100 mg tablet 2024-03 00:00: 00 Yes [id number] 1.5 tablet EVERY PM 1.5 tablet EVERY PM (route: oral) Med Classific ation: Central Nervous System Agents carbidopa 25 mg-levodopa 100 mg tablet 2024-03 00:00: 00 Yes [id number] 1.5 tablet BEDTIME 1.5 tablet BEDTIME (route: oral) Med Classific ation: Central Nervous System Agents cyclobenzap rine 10 mg tablet 2024-03 00:00: 00 Yes [id number] 1 tablet BEDTIME 1 tablet BEDTIME (route: oral) Med Classific ation: Locomotor System famotidine 40 mg tablet 2024-03 00:00: 00 Yes [id number] 1 tablet EVERY AM 1 tablet EVERY AM (route: oral) Med Classific ation: Gastroint estinal Therapy Agents meloxicam 15 mg tablet 2024-03 00:00: 00 Yes [id number] 1 tablet EVERY AM 1 tablet EVERY AM (route: oral) Med Classific ation: Analgesic , Anti-infl ammatory or Antipyret ic paroxetine 40 mg tablet 2024-03 00:00: 00 Yes [id number] 1 tablet EVERY AM 1 tablet EVERY AM (route: oral) Med Classific ation: Central Nervous System Agents trazodone 50 mg tablet 2024-03 00:00: 00 Yes [id number] 1 tablet BEDTIME 1 tablet BEDTIME (route: oral) Med Classific ation: Central Nervous System Agents Tylenol Arthritis Pain 650 mg tablet,exte nded release 2024-03 0-23 00:00: 00 Yes [id number] 1 tablet EVERY 8 HOURS 1 tablet EVERY 8 HOURS (route: oral) Med Classific ation: Analgesic , Anti-infl ammatory or Antipyret ic Farxiga 5 mg tablet 2024-03 1-03 00:00: 00 Yes [id number] 1 tablet EVERY AM 1 tablet EVERY [...] AWARENESS FOR SAFETY AND WILL NOTIFY CLINICAL GLOVE PRESSER AND PHYSICIAN/PROVIDER WITH ANY CHANGE IN CONDITION. [code = SKILLED NURSE WILL MAINTAIN SITUATIONAL AWARENESS FOR SAFETY AND WILL NOTIFY CLINICAL GLOVE PRESSER AND PHYSICIAN/PROVIDER WITH ANY CHANGE IN [...] CLEAN AND NEATLY DRESSED IN KITCHEN WITH COMMUNICATIONS PROFESSIONAL PRESENT D/T MOUSE PROBLEM. 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
--- OUTSIDE RECORDS SUMMARY | 2025-03-18 19:00 | XMS_ITS | Clinical Summary ---
Author Organization Unknown Care Team Providers Care Admin Dir Name Role Phone YAIMA RASMUSSEN, KAVITA BEST Unavailable Unamirella SPEARS RN, SNEHAL Unavailable Unavailable Payers Payer Name Policy Type Policy Number Effective Date Expira tion Date [employer] MEDICARE ADVANTAGE FFS [id number] MEDICARE - [place] PDGM [id number] Problems Condition Name Condition Details Condition Category [...] 06-25 00:00: 00 12-31 23:59 :00 No [id number] 2 puff DIRECTED 2 puff DIRECTED (route: inhalation ) Med Classific ation: Respirato ry Therapy Agents bupropion HCl XL 300 mg 24 hr tablet, extended release 06-25 00:00: 00 12-31 23:59 :00 No [id number] 1 tablet DAILY 1 tablet DAILY (route: oral) Med Classific ation: Central Nervous System Agents carbidopa 25 mg-levodopa 100 mg tablet 417 00:00: 00 12-31 23:59 :00 No [id number] 1.5 tablet 4 TIMES DAILY 1.5 tablet 4 TIMES DAILY (route: oral) Med Classific ation: Central Nervous System Agents famotidine 40 mg tablet 417 00:00: 00 09-01 23:59 :00 No [id number] 1 tablet DAILY 1 tablet DAILY (route: oral) Med Classific ation: Gastroint estinal Therapy Agents paroxetine 40 mg tablet 17 00:00: 00 12-31 23:59 :00 No [id number] 1 tablet DAILY 1 tablet DAILY (route: oral) Med Classific ation: Central Nervous System Agents trazodone 50 mg tablet 06-25 00:00: 00 09-01 23:59 :00 No [id number] Per instruc tions BEDTIME Per instructio ns BEDTIME (route: oral) Med Classific ation: Central Nervous System Agents gabapentin 100 mg capsule -24 00:00: 00 09-01 23:59 :00 No [id number] pain Per instruc tions BEDTIME Per instructio ns BEDTIME (route: oral) Med Classific ation: Central Nervous System Agents omeprazole 40 mg capsule,del ayed release -24 00:00: 00 05-20 23:59 :00 No [id number] 1 capsule DAILY 1 capsule DAILY (route: oral) Med Classific ation: Gastroint estinal Therapy Agents gabapentin 100 mg capsule 2023-03 0- 00:00: 00 09-01 23:59 :00 No [id number] Per instruc tions 2 TIMES DAILY Per instructio ns 2 TIMES DAILY (route: oral) Med Classific ation: Central Nervous System Agents famotidine 40 mg tablet 3-16 00:00: 00 12-31 23:59 :00 No [id number] 1 tablet EVERY AM 1 tablet EVERY AM (route: oral) Med Classific ation: Gastroint estinal Therapy Agents Tylenol Arthritis Pain 650 mg tablet,exte nded release 3-21 00:00: 00 12-31 23:59 :00 No [id number] 1 tablet EVERY 8 HOURS 1 tablet EVERY 8 HOURS (route: oral) Med Classific ation: Analgesic , Anti-infl ammatory or Antipyret ic cyclobenzap rine 10 mg tablet 08-05 00:00: 00 09-01 23:59 :00 No [id number] 1 tablet BEDTIME 1 tablet BEDTIME (route: oral) Med Classific ation: Locomotor System meloxicam 15 mg tablet 08-05 00:00: 00 09-01 23:59 :00 No [id number] 1 tablet DAILY 1 tablet DAILY (route: oral) Med Classific ation: Analgesic , Anti-infl ammatory or Antipyret ic cyclobenzap rine 10 mg tablet 09-01 00:00: 00 12-31 23:59 :00 No [id number] 1 tablet BEDTIME 1 tablet BEDTIME (route: oral) Med Classific ation: Locomotor System meloxicam 15 mg tablet 09-01 00:00: 00 12-31 23:59 :00 No [id number] 1 tablet EVERY AM 1 tablet EVERY AM (route: oral) Med Classific ation: Analgesic , Anti-infl ammatory or Antipyret ic trazodone 50 mg tablet 09-01 00:00: 00 12-31 23:59 :00 No [id number] Per instruc tions BEDTIME Per instructio ns BEDTIME (route: oral) Med Classific ation: Central Nervous System Agents erythromyci n 5 mg/gram (0.5 %) eye ointment 2024-03 00:00: 00 Yes [id number] Per instruc tions 4 TIMES DAILY Per instructio ns 4 TIMES DAILY (route: ophthalmic (eye)) Med Classific ation: Ophthalmi c Agents albuterol sulfate HFA 90 mcg/actuati on aerosol inhaler 2024-03 00:00: 00 Yes [id number] 2 puff EVERY 6 HOURS 2 puff EVERY 6 HOURS (route: inhalation ) Med Classific ation: Respirato ry Therapy Agents bupropion HCl XL 300 mg 24 hr tablet, extended release 2024-03 00:00: 00 Yes [id number] 1 tablet EVERY AM 1 tablet EVERY AM (route: oral) Med Classific ation: Central Nervous System Agents carbidopa 25 mg-levodopa 100 mg disintegrat ing tablet 2024-03 00:00: 00 Yes [id number] 1.5 tablet NOON 1.5 tablet NOON (route: oral) Med Classific ation: Central Nervous System Agents carbidopa 25 mg-levodopa 100 mg tablet 2024-03 00:00: 00 Yes [id number] 1.5 tablet EVERY AM 1.5 tablet EVERY AM (route: oral) Med Classific ation: Central Nervous System Agents carbidopa 25 mg-levodopa 100 mg tablet 2024-03 00:00: 00 Yes [id number] 1.5 tablet EVERY PM 1.5 tablet EVERY PM (route: oral) Med Classific ation: Central Nervous System Agents carbidopa 25 mg-levodopa 100 mg tablet 2024-03 00:00: 00 Yes [id number] 1.5 tablet BEDTIME 1.5 tablet BEDTIME (route: oral) Med Classific ation: Central Nervous System Agents cyclobenzap rine 10 mg tablet 2024-03 00:00: 00 Yes [id number] 1 tablet BEDTIME 1 tablet BEDTIME (route: oral) Med Classific ation: Locomotor System famotidine 40 mg tablet 2024-03 00:00: 00 Yes [id number] 1 tablet EVERY AM 1 tablet EVERY AM (route: oral) Med Classific ation: Gastroint estinal Therapy Agents meloxicam 15 mg tablet 2024-03 00:00: 00 Yes [id number] 1 tablet EVERY AM 1 tablet EVERY AM (route: oral) Med Classific ation: Analgesic , Anti-infl ammatory or Antipyret ic paroxetine 40 mg tablet 2024-03 00:00: 00 Yes [id number] 1 tablet EVERY AM 1 tablet EVERY AM (route: oral) Med Classific ation: Central Nervous System Agents trazodone 50 mg tablet 2024-03 00:00: 00 Yes [id number] 1 tablet BEDTIME 1 tablet BEDTIME (route: oral) Med Classific ation: Central Nervous System Agents Tylenol Arthritis Pain 650 mg tablet,exte nded release 2024-03 0-23 00:00: 00 Yes [id number] 1 tablet EVERY 8 HOURS 1 tablet EVERY 8 HOURS (route: oral) Med Classific ation: Analgesic , Anti-infl ammatory or Antipyret ic Farxiga 5 mg tablet 2024-03 1-03 00:00: 00 Yes [id number] 1 tablet EVERY AM 1 tablet EVERY [...] AWARENESS FOR SAFETY AND WILL NOTIFY CLINICAL STATION GATEMAN AND PHYSICIAN/PROVIDER WITH ANY CHANGE IN CONDITION. [code = SKILLED NURSE WILL MAINTAIN SITUATIONAL AWARENESS FOR SAFETY AND WILL NOTIFY CLINICAL STATION GATEMAN AND PHYSICIAN/PROVIDER WITH ANY CHANGE IN CONDITION.] [...] CLEAN AND NEATLY DRESSED IN KITCHEN WITH ADJUNCT FACULTY INSTRUCTOR PRESENT D/T MOUSE PROBLEM. HER HOME [...] HER MED PP PER HER MED INSURANCE FOLLOW UP REPRESENTATIVE AND DENIES ANY ADVERSE EFFECTS.</paragraph> Encounters Start Date/Time End Date/Time Encounter Type Admission Type Attending Clinicians Care Facility Care Department Encounter ID Discharge Date Discharge Status Discharge Condition Discharge Reason Percent Goals Met 2025-01-19 00:00:00 2025-03-19 00:00:00 Outpatient RECERTIFIC ATSNEHAL VELA [facility] [id number] 76.00
--- OUTSIDE RECORDS SUMMARY | 2025-03-18 19:00 | XMS_ITS | Clinical Summary ---
Author Organization Unknown Care Team Providers Care Project Manager Finance Name Role Phone YAIMA RASMUSSEN, KAVITA BEST Unavailable Unamirella SPEARS RN, SNEHAL Unavailable Unavailable Payers Payer Name Policy Type Policy Number Effective Date Expira tion Date [employer] MEDICARE ADVANTAGE FFS [id number] MEDICARE - [place] - PDGM [id number] Problems Condition Name Condition Details Condition Category [...] 06-25 00:00: 00 12-31 23:59 :00 No [id number] 2 puff DIRECTED 2 puff DIRECTED (route: inhalation ) Med Classific ation: Respirato ry Therapy Agents bupropion HCl XL 300 mg 24 hr tablet, extended release 06-25 00:00: 00 12-31 23:59 :00 No [id number] 1 tablet DAILY 1 tablet DAILY (route: oral) Med Classific ation: Central Nervous System Agents carbidopa 25 mg-levodopa 100 mg tablet 417 00:00: 00 12-31 23:59 :00 No [id number] 1.5 tablet 4 TIMES DAILY 1.5 tablet 4 TIMES DAILY (route: oral) Med Classific ation: Central Nervous System Agents famotidine 40 mg tablet 417 00:00: 00 09-01 23:59 :00 No [id number] 1 tablet DAILY 1 tablet DAILY (route: oral) Med Classific ation: Gastroint estinal Therapy Agents paroxetine 40 mg tablet 17 00:00: 00 12-31 23:59 :00 No [id number] 1 tablet DAILY 1 tablet DAILY (route: oral) Med Classific ation: Central Nervous System Agents trazodone 50 mg tablet 06-25 00:00: 00 09-01 23:59 :00 No [id number] Per instruc tions BEDTIME Per instructio ns BEDTIME (route: oral) Med Classific ation: Central Nervous System Agents gabapentin 100 mg capsule -24 00:00: 00 09-01 23:59 :00 No [id number] pain Per instruc tions BEDTIME Per instructio ns BEDTIME (route: oral) Med Classific ation: Central Nervous System Agents omeprazole 40 mg capsule,del ayed release -24 00:00: 00 05-20 23:59 :00 No [id number] 1 capsule DAILY 1 capsule DAILY (route: oral) Med Classific ation: Gastroint estinal Therapy Agents gabapentin 100 mg capsule 2023-03 0- 00:00: 00 09-01 23:59 :00 No [id number] Per instruc tions 2 TIMES DAILY Per instructio ns 2 TIMES DAILY (route: oral) Med Classific ation: Central Nervous System Agents famotidine 40 mg tablet 3-16 00:00: 00 12-31 23:59 :00 No [id number] 1 tablet EVERY AM 1 tablet EVERY AM (route: oral) Med Classific ation: Gastroint estinal Therapy Agents Tylenol Arthritis Pain 650 mg tablet,exte nded release 3-21 00:00: 00 12-31 23:59 :00 No [id number] 1 tablet EVERY 8 HOURS 1 tablet EVERY 8 HOURS (route: oral) Med Classific ation: Analgesic , Anti-infl ammatory or Antipyret ic cyclobenzap rine 10 mg tablet 08-05 00:00: 00 09-01 23:59 :00 No [id number] 1 tablet BEDTIME 1 tablet BEDTIME (route: oral) Med Classific ation: Locomotor System meloxicam 15 mg tablet 08-05 00:00: 00 09-01 23:59 :00 No [id number] 1 tablet DAILY 1 tablet DAILY (route: oral) Med Classific ation: Analgesic , Anti-infl ammatory or Antipyret ic cyclobenzap rine 10 mg tablet 09-01 00:00: 00 12-31 23:59 :00 No [id number] 1 tablet BEDTIME 1 tablet BEDTIME (route: oral) Med Classific ation: Locomotor System meloxicam 15 mg tablet 09-01 00:00: 00 12-31 23:59 :00 No [id number] 1 tablet EVERY AM 1 tablet EVERY AM (route: oral) Med Classific ation: Analgesic , Anti-infl ammatory or Antipyret ic trazodone 50 mg tablet 09-01 00:00: 00 12-31 23:59 :00 No [id number] Per instruc tions BEDTIME Per instructio ns BEDTIME (route: oral) Med Classific ation: Central Nervous System Agents erythromyci n 5 mg/gram (0.5 %) eye ointment 2024-03 00:00: 00 Yes [id number] Per instruc tions 4 TIMES DAILY Per instructio ns 4 TIMES DAILY (route: ophthalmic (eye)) Med Classific ation: Ophthalmi c Agents albuterol sulfate HFA 90 mcg/actuati on aerosol inhaler 2024-03 00:00: 00 Yes [id number] 2 puff EVERY 6 HOURS 2 puff EVERY 6 HOURS (route: inhalation ) Med Classific ation: Respirato ry Therapy Agents bupropion HCl XL 300 mg 24 hr tablet, extended release 2024-03 00:00: 00 Yes [id number] 1 tablet EVERY AM 1 tablet EVERY AM (route: oral) Med Classific ation: Central Nervous System Agents carbidopa 25 mg-levodopa 100 mg disintegrat ing tablet 2024-03 00:00: 00 Yes [id number] 1.5 tablet NOON 1.5 tablet NOON (route: oral) Med Classific ation: Central Nervous System Agents carbidopa 25 mg-levodopa 100 mg tablet 2024-03 00:00: 00 Yes [id number] 1.5 tablet EVERY AM 1.5 tablet EVERY AM (route: oral) Med Classific ation: Central Nervous System Agents carbidopa 25 mg-levodopa 100 mg tablet 2024-03 00:00: 00 Yes [id number] 1.5 tablet EVERY PM 1.5 tablet EVERY PM (route: oral) Med Classific ation: Central Nervous System Agents carbidopa 25 mg-levodopa 100 mg tablet 2024-03 00:00: 00 Yes [id number] 1.5 tablet BEDTIME 1.5 tablet BEDTIME (route: oral) Med Classific ation: Central Nervous System Agents cyclobenzap rine 10 mg tablet 2024-03 00:00: 00 Yes [id number] 1 tablet BEDTIME 1 tablet BEDTIME (route: oral) Med Classific ation: Locomotor System famotidine 40 mg tablet 2024-03 00:00: 00 Yes [id number] 1 tablet EVERY AM 1 tablet EVERY AM (route: oral) Med Classific ation: Gastroint estinal Therapy Agents meloxicam 15 mg tablet 2024-03 00:00: 00 Yes [id number] 1 tablet EVERY AM 1 tablet EVERY AM (route: oral) Med Classific ation: Analgesic , Anti-infl ammatory or Antipyret ic paroxetine 40 mg tablet 2024-03 00:00: 00 Yes [id number] 1 tablet EVERY AM 1 tablet EVERY AM (route: oral) Med Classific ation: Central Nervous System Agents trazodone 50 mg tablet 2024-03 00:00: 00 Yes [id number] 1 tablet BEDTIME 1 tablet BEDTIME (route: oral) Med Classific ation: Central Nervous System Agents Tylenol Arthritis Pain 650 mg tablet,exte nded release 2024-03 0-23 00:00: 00 Yes [id number] 1 tablet EVERY 8 HOURS 1 tablet EVERY 8 HOURS (route: oral) Med Classific ation: Analgesic , Anti-infl ammatory or Antipyret ic Farxiga 5 mg tablet 2024-03 1-03 00:00: 00 Yes [id number] 1 tablet EVERY AM 1 tablet EVERY [...] AWARENESS FOR SAFETY AND WILL NOTIFY CLINICAL CANAL LOCK TENDER CHIEF OPERATOR AND PHYSICIAN/PROVIDER WITH ANY CHANGE IN CONDITION. [code = SKILLED NURSE WILL MAINTAIN SITUATIONAL AWARENESS FOR SAFETY AND WILL NOTIFY CLINICAL CANAL LOCK TENDER CHIEF OPERATOR AND PHYSICIAN/PROVIDER WITH ANY CHANGE IN [...] CLEAN AND NEATLY DRESSED IN KITCHEN WITH DISABILITY HEARING OFFICER PRESENT D/T MOUSE PROBLEM. 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
--- OUTSIDE RECORDS SUMMARY | 2025-03-18 19:00 | XMS_ITS | Clinical Summary ---
Author Organization Unknown Care Team Providers Care Tooler Name Role Phone YAIMA RASMUSSEN, KAVITA BEST Unavailable Unamirella SPEARS RN, SNEHAL Unavailable Unavailable Payers Payer Name Policy Type Policy Number Effective Date Expira tion Date [employer] MEDICARE ADVANTAGE FFS [id number] MEDICARE - [place]GM [id number] Problems Condition Name Condition Details Condition Category [...] 06-25 00:00: 00 12-31 23:59 :00 No [id number] 2 puff DIRECTED 2 puff DIRECTED (route: inhalation ) Med Classific ation: Respirato ry Therapy Agents bupropion HCl XL 300 mg 24 hr tablet, extended release 06-25 00:00: 00 12-31 23:59 :00 No [id number] 1 tablet DAILY 1 tablet DAILY (route: oral) Med Classific ation: Central Nervous System Agents carbidopa 25 mg-levodopa 100 mg tablet 417 00:00: 00 12-31 23:59 :00 No [id number] 1.5 tablet 4 TIMES DAILY 1.5 tablet 4 TIMES DAILY (route: oral) Med Classific ation: Central Nervous System Agents famotidine 40 mg tablet 417 00:00: 00 09-01 23:59 :00 No [id number] 1 tablet DAILY 1 tablet DAILY (route: oral) Med Classific ation: Gastroint estinal Therapy Agents paroxetine 40 mg tablet 17 00:00: 00 12-31 23:59 :00 No [id number] 1 tablet DAILY 1 tablet DAILY (route: oral) Med Classific ation: Central Nervous System Agents trazodone 50 mg tablet 06-25 00:00: 00 09-01 23:59 :00 No [id number] Per instruc tions BEDTIME Per instructio ns BEDTIME (route: oral) Med Classific ation: Central Nervous System Agents gabapentin 100 mg capsule -24 00:00: 00 09-01 23:59 :00 No [id number] pain Per instruc tions BEDTIME Per instructio ns BEDTIME (route: oral) Med Classific ation: Central Nervous System Agents omeprazole 40 mg capsule,del ayed release -24 00:00: 00 05-20 23:59 :00 No [id number] 1 capsule DAILY 1 capsule DAILY (route: oral) Med Classific ation: Gastroint estinal Therapy Agents gabapentin 100 mg capsule 2023-03 0- 00:00: 00 09-01 23:59 :00 No [id number] Per instruc tions 2 TIMES DAILY Per instructio ns 2 TIMES DAILY (route: oral) Med Classific ation: Central Nervous System Agents famotidine 40 mg tablet 3-16 00:00: 00 12-31 23:59 :00 No [id number] 1 tablet EVERY AM 1 tablet EVERY AM (route: oral) Med Classific ation: Gastroint estinal Therapy Agents Tylenol Arthritis Pain 650 mg tablet,exte nded release 3-21 00:00: 00 12-31 23:59 :00 No [id number] 1 tablet EVERY 8 HOURS 1 tablet EVERY 8 HOURS (route: oral) Med Classific ation: Analgesic , Anti-infl ammatory or Antipyret ic cyclobenzap rine 10 mg tablet 08-05 00:00: 00 09-01 23:59 :00 No [id number] 1 tablet BEDTIME 1 tablet BEDTIME (route: oral) Med Classific ation: Locomotor System meloxicam 15 mg tablet 08-05 00:00: 00 09-01 23:59 :00 No [id number] 1 tablet DAILY 1 tablet DAILY (route: oral) Med Classific ation: Analgesic , Anti-infl ammatory or Antipyret ic cyclobenzap rine 10 mg tablet 09-01 00:00: 00 12-31 23:59 :00 No [id number] 1 tablet BEDTIME 1 tablet BEDTIME (route: oral) Med Classific ation: Locomotor System meloxicam 15 mg tablet 09-01 00:00: 00 12-31 23:59 :00 No [id number] 1 tablet EVERY AM 1 tablet EVERY AM (route: oral) Med Classific ation: Analgesic , Anti-infl ammatory or Antipyret ic trazodone 50 mg tablet 09-01 00:00: 00 12-31 23:59 :00 No [id number] Per instruc tions BEDTIME Per instructio ns BEDTIME (route: oral) Med Classific ation: Central Nervous System Agents erythromyci n 5 mg/gram (0.5 %) eye ointment 2024-03 00:00: 00 Yes [id number] Per instruc tions 4 TIMES DAILY Per instructio ns 4 TIMES DAILY (route: ophthalmic (eye)) Med Classific ation: Ophthalmi c Agents albuterol sulfate HFA 90 mcg/actuati on aerosol inhaler 2024-03 00:00: 00 Yes [id number] 2 puff EVERY 6 HOURS 2 puff EVERY 6 HOURS (route: inhalation ) Med Classific ation: Respirato ry Therapy Agents bupropion HCl XL 300 mg 24 hr tablet, extended release 2024-03 00:00: 00 Yes [id number] 1 tablet EVERY AM 1 tablet EVERY AM (route: oral) Med Classific ation: Central Nervous System Agents carbidopa 25 mg-levodopa 100 mg disintegrat ing tablet 2024-03 00:00: 00 Yes [id number] 1.5 tablet NOON 1.5 tablet NOON (route: oral) Med Classific ation: Central Nervous System Agents carbidopa 25 mg-levodopa 100 mg tablet 2024-03 00:00: 00 Yes [id number] 1.5 tablet EVERY AM 1.5 tablet EVERY AM (route: oral) Med Classific ation: Central Nervous System Agents carbidopa 25 mg-levodopa 100 mg tablet 2024-03 00:00: 00 Yes [id number] 1.5 tablet EVERY PM 1.5 tablet EVERY PM (route: oral) Med Classific ation: Central Nervous System Agents carbidopa 25 mg-levodopa 100 mg tablet 2024-03 00:00: 00 Yes [id number] 1.5 tablet BEDTIME 1.5 tablet BEDTIME (route: oral) Med Classific ation: Central Nervous System Agents cyclobenzap rine 10 mg tablet 2024-03 00:00: 00 Yes [id number] 1 tablet BEDTIME 1 tablet BEDTIME (route: oral) Med Classific ation: Locomotor System famotidine 40 mg tablet 2024-03 00:00: 00 Yes [id number] 1 tablet EVERY AM 1 tablet EVERY AM (route: oral) Med Classific ation: Gastroint estinal Therapy Agents meloxicam 15 mg tablet 2024-03 00:00: 00 Yes [id number] 1 tablet EVERY AM 1 tablet EVERY AM (route: oral) Med Classific ation: Analgesic , Anti-infl ammatory or Antipyret ic paroxetine 40 mg tablet 2024-03 00:00: 00 Yes [id number] 1 tablet EVERY AM 1 tablet EVERY AM (route: oral) Med Classific ation: Central Nervous System Agents trazodone 50 mg tablet 2024-03 00:00: 00 Yes [id number] 1 tablet BEDTIME 1 tablet BEDTIME (route: oral) Med Classific ation: Central Nervous System Agents Tylenol Arthritis Pain 650 mg tablet,exte nded release 2024-03 0-23 00:00: 00 Yes [id number] 1 tablet EVERY 8 HOURS 1 tablet EVERY 8 HOURS (route: oral) Med Classific ation: Analgesic , Anti-infl ammatory or Antipyret ic Farxiga 5 mg tablet 2024-03 1-03 00:00: 00 Yes [id number] 1 tablet EVERY AM 1 tablet EVERY [...] AWARENESS FOR SAFETY AND WILL NOTIFY CLINICAL SALES CONTRACTS ANALYST AND PHYSICIAN/PROVIDER WITH ANY CHANGE IN CONDITION. [code = SKILLED NURSE WILL MAINTAIN SITUATIONAL AWARENESS FOR SAFETY AND WILL NOTIFY CLINICAL SALES CONTRACTS ANALYST AND PHYSICIAN/PROVIDER WITH ANY CHANGE IN [...] CLEAN AND NEATLY DRESSED IN KITCHEN WITH INTERNAL MEDICINE PHYSICIAN ASSISTANT PRESENT D/T MOUSE PROBLEM. 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
--- OUTSIDE RECORDS SUMMARY | 2025-03-18 19:00 | XMS_ITS | Clinical Summary ---
Author Organization Unknown Care Team Providers Care Radio Tower Technician Name Role Phone YAIMA RASMUSSEN, KAVITA BEST Unavailable Unamirella SPEARS RN, SNEHAL Unavailable Unavailable Payers Payer Name Policy Type Policy Number Effective Date Expira tion Date [employer] MEDICARE ADVANTAGE FFS [id number] MEDICARE - [place] PDGM [id number] Problems Condition Name Condition Details Condition Category [...] 06-25 00:00: 00 12-31 23:59 :00 No [id number] 2 puff DIRECTED 2 puff DIRECTED (route: inhalation ) Med Classific ation: Respirato ry Therapy Agents bupropion HCl XL 300 mg 24 hr tablet, extended release 06-25 00:00: 00 12-31 23:59 :00 No [id number] 1 tablet DAILY 1 tablet DAILY (route: oral) Med Classific ation: Central Nervous System Agents carbidopa 25 mg-levodopa 100 mg tablet 417 00:00: 00 12-31 23:59 :00 No [id number] 1.5 tablet 4 TIMES DAILY 1.5 tablet 4 TIMES DAILY (route: oral) Med Classific ation: Central Nervous System Agents famotidine 40 mg tablet 417 00:00: 00 09-01 23:59 :00 No [id number] 1 tablet DAILY 1 tablet DAILY (route: oral) Med Classific ation: Gastroint estinal Therapy Agents paroxetine 40 mg tablet 17 00:00: 00 12-31 23:59 :00 No [id number] 1 tablet DAILY 1 tablet DAILY (route: oral) Med Classific ation: Central Nervous System Agents trazodone 50 mg tablet 06-25 00:00: 00 09-01 23:59 :00 No [id number] Per instruc tions BEDTIME Per instructio ns BEDTIME (route: oral) Med Classific ation: Central Nervous System Agents gabapentin 100 mg capsule -24 00:00: 00 09-01 23:59 :00 No [id number] pain Per instruc tions BEDTIME Per instructio ns BEDTIME (route: oral) Med Classific ation: Central Nervous System Agents omeprazole 40 mg capsule,del ayed release -24 00:00: 00 05-20 23:59 :00 No [id number] 1 capsule DAILY 1 capsule DAILY (route: oral) Med Classific ation: Gastroint estinal Therapy Agents gabapentin 100 mg capsule 2023-03 0- 00:00: 00 09-01 23:59 :00 No [id number] Per instruc tions 2 TIMES DAILY Per instructio ns 2 TIMES DAILY (route: oral) Med Classific ation: Central Nervous System Agents famotidine 40 mg tablet 3-16 00:00: 00 12-31 23:59 :00 No [id number] 1 tablet EVERY AM 1 tablet EVERY AM (route: oral) Med Classific ation: Gastroint estinal Therapy Agents Tylenol Arthritis Pain 650 mg tablet,exte nded release 3-21 00:00: 00 12-31 23:59 :00 No [id number] 1 tablet EVERY 8 HOURS 1 tablet EVERY 8 HOURS (route: oral) Med Classific ation: Analgesic , Anti-infl ammatory or Antipyret ic cyclobenzap rine 10 mg tablet 08-05 00:00: 00 09-01 23:59 :00 No [id number] 1 tablet BEDTIME 1 tablet BEDTIME (route: oral) Med Classific ation: Locomotor System meloxicam 15 mg tablet 08-05 00:00: 00 09-01 23:59 :00 No [id number] 1 tablet DAILY 1 tablet DAILY (route: oral) Med Classific ation: Analgesic , Anti-infl ammatory or Antipyret ic cyclobenzap rine 10 mg tablet 09-01 00:00: 00 12-31 23:59 :00 No [id number] 1 tablet BEDTIME 1 tablet BEDTIME (route: oral) Med Classific ation: Locomotor System meloxicam 15 mg tablet 09-01 00:00: 00 12-31 23:59 :00 No [id number] 1 tablet EVERY AM 1 tablet EVERY AM (route: oral) Med Classific ation: Analgesic , Anti-infl ammatory or Antipyret ic trazodone 50 mg tablet 09-01 00:00: 00 12-31 23:59 :00 No [id number] Per instruc tions BEDTIME Per instructio ns BEDTIME (route: oral) Med Classific ation: Central Nervous System Agents erythromyci n 5 mg/gram (0.5 %) eye ointment 2024-03 00:00: 00 Yes [id number] Per instruc tions 4 TIMES DAILY Per instructio ns 4 TIMES DAILY (route: ophthalmic (eye)) Med Classific ation: Ophthalmi c Agents albuterol sulfate HFA 90 mcg/actuati on aerosol inhaler 2024-03 00:00: 00 Yes [id number] 2 puff EVERY 6 HOURS 2 puff EVERY 6 HOURS (route: inhalation ) Med Classific ation: Respirato ry Therapy Agents bupropion HCl XL 300 mg 24 hr tablet, extended release 2024-03 00:00: 00 Yes [id number] 1 tablet EVERY AM 1 tablet EVERY AM (route: oral) Med Classific ation: Central Nervous System Agents carbidopa 25 mg-levodopa 100 mg disintegrat ing tablet 2024-03 00:00: 00 Yes [id number] 1.5 tablet NOON 1.5 tablet NOON (route: oral) Med Classific ation: Central Nervous System Agents carbidopa 25 mg-levodopa 100 mg tablet 2024-03 00:00: 00 Yes [id number] 1.5 tablet EVERY AM 1.5 tablet EVERY AM (route: oral) Med Classific ation: Central Nervous System Agents carbidopa 25 mg-levodopa 100 mg tablet 2024-03 00:00: 00 Yes [id number] 1.5 tablet EVERY PM 1.5 tablet EVERY PM (route: oral) Med Classific ation: Central Nervous System Agents carbidopa 25 mg-levodopa 100 mg tablet 2024-03 00:00: 00 Yes [id number] 1.5 tablet BEDTIME 1.5 tablet BEDTIME (route: oral) Med Classific ation: Central Nervous System Agents cyclobenzap rine 10 mg tablet 2024-03 00:00: 00 Yes [id number] 1 tablet BEDTIME 1 tablet BEDTIME (route: oral) Med Classific ation: Locomotor System famotidine 40 mg tablet 2024-03 00:00: 00 Yes [id number] 1 tablet EVERY AM 1 tablet EVERY AM (route: oral) Med Classific ation: Gastroint estinal Therapy Agents meloxicam 15 mg tablet 2024-03 00:00: 00 Yes [id number] 1 tablet EVERY AM 1 tablet EVERY AM (route: oral) Med Classific ation: Analgesic , Anti-infl ammatory or Antipyret ic paroxetine 40 mg tablet 2024-03 00:00: 00 Yes [id number] 1 tablet EVERY AM 1 tablet EVERY AM (route: oral) Med Classific ation: Central Nervous System Agents trazodone 50 mg tablet 2024-03 00:00: 00 Yes [id number] 1 tablet BEDTIME 1 tablet BEDTIME (route: oral) Med Classific ation: Central Nervous System Agents Tylenol Arthritis Pain 650 mg tablet,exte nded release 2024-03 0-23 00:00: 00 Yes [id number] 1 tablet EVERY 8 HOURS 1 tablet EVERY 8 HOURS (route: oral) Med Classific ation: Analgesic , Anti-infl ammatory or Antipyret ic Farxiga 5 mg tablet 2024-03 1-03 00:00: 00 Yes [id number] 1 tablet EVERY AM 1 tablet EVERY [...] AWARENESS FOR SAFETY AND WILL NOTIFY CLINICAL DISPATCHER CLERK AND PHYSICIAN/PROVIDER WITH ANY CHANGE IN CONDITION. 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
--- OUTSIDE RECORDS SUMMARY | 2025-03-18 19:00 | XMS_ITS | Clinical Summary ---
Author Organization Unknown Care Team Providers Care Manager Of Maintenance Name Role Phone YAIMA RASMUSSEN, KAVITA BEST Unavailable Unamirella SPEARS RN, SNEHAL Unavailable Unavailable Payers Payer Name Policy Type Policy Number Effective Date Expira tion Date [employer] MEDICARE ADVANTAGE FFS [id number] MEDICARE - [place] - PDGM [id number] Problems Condition Name Condition Details Condition Category [...] 06-25 00:00: 00 12-31 23:59 :00 No [id number] 2 puff DIRECTED 2 puff DIRECTED (route: inhalation ) Med Classific ation: Respirato ry Therapy Agents bupropion HCl XL 300 mg 24 hr tablet, extended release 06-25 00:00: 00 12-31 23:59 :00 No [id number] 1 tablet DAILY 1 tablet DAILY (route: oral) Med Classific ation: Central Nervous System Agents carbidopa 25 mg-levodopa 100 mg tablet 417 00:00: 00 12-31 23:59 :00 No [id number] 1.5 tablet 4 TIMES DAILY 1.5 tablet 4 TIMES DAILY (route: oral) Med Classific ation: Central Nervous System Agents famotidine 40 mg tablet 417 00:00: 00 09-01 23:59 :00 No [id number] 1 tablet DAILY 1 tablet DAILY (route: oral) Med Classific ation: Gastroint estinal Therapy Agents paroxetine 40 mg tablet 17 00:00: 00 12-31 23:59 :00 No [id number] 1 tablet DAILY 1 tablet DAILY (route: oral) Med Classific ation: Central Nervous System Agents trazodone 50 mg tablet 06-25 00:00: 00 09-01 23:59 :00 No [id number] Per instruc tions BEDTIME Per instructio ns BEDTIME (route: oral) Med Classific ation: Central Nervous System Agents gabapentin 100 mg capsule -24 00:00: 00 09-01 23:59 :00 No [id number] pain Per instruc tions BEDTIME Per instructio ns BEDTIME (route: oral) Med Classific ation: Central Nervous System Agents omeprazole 40 mg capsule,del ayed release -24 00:00: 00 05-20 23:59 :00 No [id number] 1 capsule DAILY 1 capsule DAILY (route: oral) Med Classific ation: Gastroint estinal Therapy Agents gabapentin 100 mg capsule 2023-03 0- 00:00: 00 09-01 23:59 :00 No [id number] Per instruc tions 2 TIMES DAILY Per instructio ns 2 TIMES DAILY (route: oral) Med Classific ation: Central Nervous System Agents famotidine 40 mg tablet 3-16 00:00: 00 12-31 23:59 :00 No [id number] 1 tablet EVERY AM 1 tablet EVERY AM (route: oral) Med Classific ation: Gastroint estinal Therapy Agents Tylenol Arthritis Pain 650 mg tablet,exte nded release 3-21 00:00: 00 12-31 23:59 :00 No [id number] 1 tablet EVERY 8 HOURS 1 tablet EVERY 8 HOURS (route: oral) Med Classific ation: Analgesic , Anti-infl ammatory or Antipyret ic cyclobenzap rine 10 mg tablet 08-05 00:00: 00 09-01 23:59 :00 No [id number] 1 tablet BEDTIME 1 tablet BEDTIME (route: oral) Med Classific ation: Locomotor System meloxicam 15 mg tablet 08-05 00:00: 00 09-01 23:59 :00 No [id number] 1 tablet DAILY 1 tablet DAILY (route: oral) Med Classific ation: Analgesic , Anti-infl ammatory or Antipyret ic cyclobenzap rine 10 mg tablet 09-01 00:00: 00 12-31 23:59 :00 No [id number] 1 tablet BEDTIME 1 tablet BEDTIME (route: oral) Med Classific ation: Locomotor System meloxicam 15 mg tablet 09-01 00:00: 00 12-31 23:59 :00 No [id number] 1 tablet EVERY AM 1 tablet EVERY AM (route: oral) Med Classific ation: Analgesic , Anti-infl ammatory or Antipyret ic trazodone 50 mg tablet 09-01 00:00: 00 12-31 23:59 :00 No [id number] Per instruc tions BEDTIME Per instructio ns BEDTIME (route: oral) Med Classific ation: Central Nervous System Agents erythromyci n 5 mg/gram (0.5 %) eye ointment 2024-03 00:00: 00 Yes [id number] Per instruc tions 4 TIMES DAILY Per instructio ns 4 TIMES DAILY (route: ophthalmic (eye)) Med Classific ation: Ophthalmi c Agents albuterol sulfate HFA 90 mcg/actuati on aerosol inhaler 2024-03 00:00: 00 Yes [id number] 2 puff EVERY 6 HOURS 2 puff EVERY 6 HOURS (route: inhalation ) Med Classific ation: Respirato ry Therapy Agents bupropion HCl XL 300 mg 24 hr tablet, extended release 2024-03 00:00: 00 Yes [id number] 1 tablet EVERY AM 1 tablet EVERY AM (route: oral) Med Classific ation: Central Nervous System Agents carbidopa 25 mg-levodopa 100 mg disintegrat ing tablet 2024-03 00:00: 00 Yes [id number] 1.5 tablet NOON 1.5 tablet NOON (route: oral) Med Classific ation: Central Nervous System Agents carbidopa 25 mg-levodopa 100 mg tablet 2024-03 00:00: 00 Yes [id number] 1.5 tablet EVERY AM 1.5 tablet EVERY AM (route: oral) Med Classific ation: Central Nervous System Agents carbidopa 25 mg-levodopa 100 mg tablet 2024-03 00:00: 00 Yes [id number] 1.5 tablet EVERY PM 1.5 tablet EVERY PM (route: oral) Med Classific ation: Central Nervous System Agents carbidopa 25 mg-levodopa 100 mg tablet 2024-03 00:00: 00 Yes [id number] 1.5 tablet BEDTIME 1.5 tablet BEDTIME (route: oral) Med Classific ation: Central Nervous System Agents cyclobenzap rine 10 mg tablet 2024-03 00:00: 00 Yes [id number] 1 tablet BEDTIME 1 tablet BEDTIME (route: oral) Med Classific ation: Locomotor System famotidine 40 mg tablet 2024-03 00:00: 00 Yes [id number] 1 tablet EVERY AM 1 tablet EVERY AM (route: oral) Med Classific ation: Gastroint estinal Therapy Agents meloxicam 15 mg tablet 2024-03 00:00: 00 Yes [id number] 1 tablet EVERY AM 1 tablet EVERY AM (route: oral) Med Classific ation: Analgesic , Anti-infl ammatory or Antipyret ic paroxetine 40 mg tablet 2024-03 00:00: 00 Yes [id number] 1 tablet EVERY AM 1 tablet EVERY AM (route: oral) Med Classific ation: Central Nervous System Agents trazodone 50 mg tablet 2024-03 00:00: 00 Yes [id number] 1 tablet BEDTIME 1 tablet BEDTIME (route: oral) Med Classific ation: Central Nervous System Agents Tylenol Arthritis Pain 650 mg tablet,exte nded release 2024-03 0-23 00:00: 00 Yes [id number] 1 tablet EVERY 8 HOURS 1 tablet EVERY 8 HOURS (route: oral) Med Classific ation: Analgesic , Anti-infl ammatory or Antipyret ic Farxiga 5 mg tablet 2024-03 1-03 00:00: 00 Yes [id number] 1 tablet EVERY AM 1 tablet EVERY [...] AWARENESS FOR SAFETY AND WILL NOTIFY CLINICAL BOARD MILL SUPERVISOR AND PHYSICIAN/PROVIDER WITH ANY CHANGE IN CONDITION. [code = SKILLED NURSE WILL MAINTAIN SITUATIONAL AWARENESS FOR SAFETY AND WILL NOTIFY CLINICAL BOARD MILL SUPERVISOR AND PHYSICIAN/PROVIDER WITH ANY CHANGE IN [...] CLEAN AND NEATLY DRESSED IN KITCHEN WITH CATCH BASIN CLEANER PRESENT D/T MOUSE PROBLEM. HER HOME IS [...] WITH HER MED PP PER HER MED HOUSEKEEPING COORDINATOR AND DENIES ANY ADVERSE EFFECTS.</paragraph> Encounters Start Date/Time End Date/Time Encounter Type Admission Type Attending Clinicians Care Facility Care Department Encounter ID Discharge Date Discharge Status Discharge Condition Discharge Reason Percent Goals Met 2025-01-19 00:00:00 2025-03-19 00:00:00 Outpatient RECERTIFIC ATSNEHAL [facility] [id number] 76.00
--- OUTSIDE RECORDS SUMMARY | 2025-03-18 19:00 | XMS_ITS | Clinical Summary ---
Author Organization Unknown Care Team Providers Care Varnisher Plasticoater Name Role Phone YAIMA RASMUSSEN, KAVITA BEST Unavailable Unamirella SPEARS RN, SNEHAL Unavailable Unavailable Payers Payer Name Policy Type Policy Number Effective Date Expira tion Date [employer] MEDICARE ADVANTAGE FFS [id number] MEDICARE - [place] PDGM [id number] Problems Condition Name Condition Details Condition Category [...] 06-25 00:00: 00 12-31 23:59 :00 No [id number] 2 puff DIRECTED 2 puff DIRECTED (route: inhalation ) Med Classific ation: Respirato ry Therapy Agents bupropion HCl XL 300 mg 24 hr tablet, extended release 06-25 00:00: 00 12-31 23:59 :00 No [id number] 1 tablet DAILY 1 tablet DAILY (route: oral) Med Classific ation: Central Nervous System Agents carbidopa 25 mg-levodopa 100 mg tablet 417 00:00: 00 12-31 23:59 :00 No [id number] 1.5 tablet 4 TIMES DAILY 1.5 tablet 4 TIMES DAILY (route: oral) Med Classific ation: Central Nervous System Agents famotidine 40 mg tablet 417 00:00: 00 09-01 23:59 :00 No [id number] 1 tablet DAILY 1 tablet DAILY (route: oral) Med Classific ation: Gastroint estinal Therapy Agents paroxetine 40 mg tablet 17 00:00: 00 12-31 23:59 :00 No [id number] 1 tablet DAILY 1 tablet DAILY (route: oral) Med Classific ation: Central Nervous System Agents trazodone 50 mg tablet 06-25 00:00: 00 09-01 23:59 :00 No [id number] Per instruc tions BEDTIME Per instructio ns BEDTIME (route: oral) Med Classific ation: Central Nervous System Agents gabapentin 100 mg capsule -24 00:00: 00 09-01 23:59 :00 No [id number] pain Per instruc tions BEDTIME Per instructio ns BEDTIME (route: oral) Med Classific ation: Central Nervous System Agents omeprazole 40 mg capsule,del ayed release -24 00:00: 00 05-20 23:59 :00 No [id number] 1 capsule DAILY 1 capsule DAILY (route: oral) Med Classific ation: Gastroint estinal Therapy Agents gabapentin 100 mg capsule 2023-03 0- 00:00: 00 09-01 23:59 :00 No [id number] Per instruc tions 2 TIMES DAILY Per instructio ns 2 TIMES DAILY (route: oral) Med Classific ation: Central Nervous System Agents famotidine 40 mg tablet 3-16 00:00: 00 12-31 23:59 :00 No [id number] 1 tablet EVERY AM 1 tablet EVERY AM (route: oral) Med Classific ation: Gastroint estinal Therapy Agents Tylenol Arthritis Pain 650 mg tablet,exte nded release 3-21 00:00: 00 12-31 23:59 :00 No [id number] 1 tablet EVERY 8 HOURS 1 tablet EVERY 8 HOURS (route: oral) Med Classific ation: Analgesic , Anti-infl ammatory or Antipyret ic cyclobenzap rine 10 mg tablet 08-05 00:00: 00 09-01 23:59 :00 No [id number] 1 tablet BEDTIME 1 tablet BEDTIME (route: oral) Med Classific ation: Locomotor System meloxicam 15 mg tablet 08-05 00:00: 00 09-01 23:59 :00 No [id number] 1 tablet DAILY 1 tablet DAILY (route: oral) Med Classific ation: Analgesic , Anti-infl ammatory or Antipyret ic cyclobenzap rine 10 mg tablet 09-01 00:00: 00 12-31 23:59 :00 No [id number] 1 tablet BEDTIME 1 tablet BEDTIME (route: oral) Med Classific ation: Locomotor System meloxicam 15 mg tablet 09-01 00:00: 00 12-31 23:59 :00 No [id number] 1 tablet EVERY AM 1 tablet EVERY AM (route: oral) Med Classific ation: Analgesic , Anti-infl ammatory or Antipyret ic trazodone 50 mg tablet 09-01 00:00: 00 12-31 23:59 :00 No [id number] Per instruc tions BEDTIME Per instructio ns BEDTIME (route: oral) Med Classific ation: Central Nervous System Agents erythromyci n 5 mg/gram (0.5 %) eye ointment 2024-03 00:00: 00 Yes [id number] Per instruc tions 4 TIMES DAILY Per instructio ns 4 TIMES DAILY (route: ophthalmic (eye)) Med Classific ation: Ophthalmi c Agents albuterol sulfate HFA 90 mcg/actuati on aerosol inhaler 2024-03 00:00: 00 Yes [id number] 2 puff EVERY 6 HOURS 2 puff EVERY 6 HOURS (route: inhalation ) Med Classific ation: Respirato ry Therapy Agents bupropion HCl XL 300 mg 24 hr tablet, extended release 2024-03 00:00: 00 Yes [id number] 1 tablet EVERY AM 1 tablet EVERY AM (route: oral) Med Classific ation: Central Nervous System Agents carbidopa 25 mg-levodopa 100 mg disintegrat ing tablet 2024-03 00:00: 00 Yes [id number] 1.5 tablet NOON 1.5 tablet NOON (route: oral) Med Classific ation: Central Nervous System Agents carbidopa 25 mg-levodopa 100 mg tablet 2024-03 00:00: 00 Yes [id number] 1.5 tablet EVERY AM 1.5 tablet EVERY AM (route: oral) Med Classific ation: Central Nervous System Agents carbidopa 25 mg-levodopa 100 mg tablet 2024-03 00:00: 00 Yes [id number] 1.5 tablet EVERY PM 1.5 tablet EVERY PM (route: oral) Med Classific ation: Central Nervous System Agents carbidopa 25 mg-levodopa 100 mg tablet 2024-03 00:00: 00 Yes [id number] 1.5 tablet BEDTIME 1.5 tablet BEDTIME (route: oral) Med Classific ation: Central Nervous System Agents cyclobenzap rine 10 mg tablet 2024-03 00:00: 00 Yes [id number] 1 tablet BEDTIME 1 tablet BEDTIME (route: oral) Med Classific ation: Locomotor System famotidine 40 mg tablet 2024-03 00:00: 00 Yes [id number] 1 tablet EVERY AM 1 tablet EVERY AM (route: oral) Med Classific ation: Gastroint estinal Therapy Agents meloxicam 15 mg tablet 2024-03 00:00: 00 Yes [id number] 1 tablet EVERY AM 1 tablet EVERY AM (route: oral) Med Classific ation: Analgesic , Anti-infl ammatory or Antipyret ic paroxetine 40 mg tablet 2024-03 00:00: 00 Yes [id number] 1 tablet EVERY AM 1 tablet EVERY AM (route: oral) Med Classific ation: Central Nervous System Agents trazodone 50 mg tablet 2024-03 00:00: 00 Yes [id number] 1 tablet BEDTIME 1 tablet BEDTIME (route: oral) Med Classific ation: Central Nervous System Agents Tylenol Arthritis Pain 650 mg tablet,exte nded release 2024-03 0-23 00:00: 00 Yes [id number] 1 tablet EVERY 8 HOURS 1 tablet EVERY 8 HOURS (route: oral) Med Classific ation: Analgesic , Anti-infl ammatory or Antipyret ic Farxiga 5 mg tablet 2024-03 1-03 00:00: 00 Yes [id number] 1 tablet EVERY AM 1 tablet EVERY [...] FOR SAFETY AND WILL NOTIFY CLINICAL ALL AROUND PATTERNMAKER AND PHYSICIAN/PROVIDER WITH ANY CHANGE IN CONDITION. [code = SKILLED NURSE WILL MAINTAIN SITUATIONAL AWARENESS FOR SAFETY AND WILL NOTIFY CLINICAL ALL AROUND PATTERNMAKER AND PHYSICIAN/PROVIDER WITH ANY CHANGE IN CONDITION.] [...] CLEAN AND NEATLY DRESSED IN KITCHEN WITH CARDIAC MONITOR PRESENT D/T MOUSE PROBLEM. HER HOME IS [...] WITH HER MED PP PER HER MED GATE CUTTER AND DENIES ANY ADVERSE EFFECTS.</paragraph> Encounters Start Date/Time End Date/Time Encounter Type Admission Type Attending Clinicians Care Facility Care Department Encounter ID Discharge Date Discharge Status Discharge Condition Discharge Reason Percent Goals Met 2025-01-19 00:00:00 2025-03-19 00:00:00 Outpatient RECERTIFIC ATSNEHAL [facility] [id number] 76.00
--- OUTSIDE RECORDS SUMMARY | 2025-03-18 19:00 | XMS_ITS | Clinical Summary ---
Author Organization Unknown Care Team Providers Care Polishing Pad Mounter Name Role Phone YAIMA RASMUSSEN, KAVITA BEST Unavailable Unamirella SPEARS RN, SNEHAL Unavailable Unavailable Payers Payer Name Policy Type Policy Number Effective Date Expira tion Date [employer] MEDICARE ADVANTAGE FFS [id number] MEDICARE - [place] - PDGM [id number] Problems Condition Name Condition Details Condition Category [...] 06-25 00:00: 00 12-31 23:59 :00 No [id number] 2 puff DIRECTED 2 puff DIRECTED (route: inhalation ) Med Classific ation: Respirato ry Therapy Agents bupropion HCl XL 300 mg 24 hr tablet, extended release 06-25 00:00: 00 12-31 23:59 :00 No [id number] 1 tablet DAILY 1 tablet DAILY (route: oral) Med Classific ation: Central Nervous System Agents carbidopa 25 mg-levodopa 100 mg tablet 417 00:00: 00 12-31 23:59 :00 No [id number] 1.5 tablet 4 TIMES DAILY 1.5 tablet 4 TIMES DAILY (route: oral) Med Classific ation: Central Nervous System Agents famotidine 40 mg tablet 417 00:00: 00 09-01 23:59 :00 No [id number] 1 tablet DAILY 1 tablet DAILY (route: oral) Med Classific ation: Gastroint estinal Therapy Agents paroxetine 40 mg tablet 17 00:00: 00 12-31 23:59 :00 No [id number] 1 tablet DAILY 1 tablet DAILY (route: oral) Med Classific ation: Central Nervous System Agents trazodone 50 mg tablet 06-25 00:00: 00 09-01 23:59 :00 No [id number] Per instruc tions BEDTIME Per instructio ns BEDTIME (route: oral) Med Classific ation: Central Nervous System Agents gabapentin 100 mg capsule -24 00:00: 00 09-01 23:59 :00 No [id number] pain Per instruc tions BEDTIME Per instructio ns BEDTIME (route: oral) Med Classific ation: Central Nervous System Agents omeprazole 40 mg capsule,del ayed release -24 00:00: 00 05-20 23:59 :00 No [id number] 1 capsule DAILY 1 capsule DAILY (route: oral) Med Classific ation: Gastroint estinal Therapy Agents gabapentin 100 mg capsule 2023-03 0- 00:00: 00 09-01 23:59 :00 No [id number] Per instruc tions 2 TIMES DAILY Per instructio ns 2 TIMES DAILY (route: oral) Med Classific ation: Central Nervous System Agents famotidine 40 mg tablet 3-16 00:00: 00 12-31 23:59 :00 No [id number] 1 tablet EVERY AM 1 tablet EVERY AM (route: oral) Med Classific ation: Gastroint estinal Therapy Agents Tylenol Arthritis Pain 650 mg tablet,exte nded release 3-21 00:00: 00 12-31 23:59 :00 No [id number] 1 tablet EVERY 8 HOURS 1 tablet EVERY 8 HOURS (route: oral) Med Classific ation: Analgesic , Anti-infl ammatory or Antipyret ic cyclobenzap rine 10 mg tablet 08-05 00:00: 00 09-01 23:59 :00 No [id number] 1 tablet BEDTIME 1 tablet BEDTIME (route: oral) Med Classific ation: Locomotor System meloxicam 15 mg tablet 08-05 00:00: 00 09-01 23:59 :00 No [id number] 1 tablet DAILY 1 tablet DAILY (route: oral) Med Classific ation: Analgesic , Anti-infl ammatory or Antipyret ic cyclobenzap rine 10 mg tablet 09-01 00:00: 00 12-31 23:59 :00 No [id number] 1 tablet BEDTIME 1 tablet BEDTIME (route: oral) Med Classific ation: Locomotor System meloxicam 15 mg tablet 09-01 00:00: 00 12-31 23:59 :00 No [id number] 1 tablet EVERY AM 1 tablet EVERY AM (route: oral) Med Classific ation: Analgesic , Anti-infl ammatory or Antipyret ic trazodone 50 mg tablet 09-01 00:00: 00 12-31 23:59 :00 No [id number] Per instruc tions BEDTIME Per instructio ns BEDTIME (route: oral) Med Classific ation: Central Nervous System Agents erythromyci n 5 mg/gram (0.5 %) eye ointment 2024-03 00:00: 00 Yes [id number] Per instruc tions 4 TIMES DAILY Per instructio ns 4 TIMES DAILY (route: ophthalmic (eye)) Med Classific ation: Ophthalmi c Agents albuterol sulfate HFA 90 mcg/actuati on aerosol inhaler 2024-03 00:00: 00 Yes [id number] 2 puff EVERY 6 HOURS 2 puff EVERY 6 HOURS (route: inhalation ) Med Classific ation: Respirato ry Therapy Agents bupropion HCl XL 300 mg 24 hr tablet, extended release 2024-03 00:00: 00 Yes [id number] 1 tablet EVERY AM 1 tablet EVERY AM (route: oral) Med Classific ation: Central Nervous System Agents carbidopa 25 mg-levodopa 100 mg disintegrat ing tablet 2024-03 00:00: 00 Yes [id number] 1.5 tablet NOON 1.5 tablet NOON (route: oral) Med Classific ation: Central Nervous System Agents carbidopa 25 mg-levodopa 100 mg tablet 2024-03 00:00: 00 Yes [id number] 1.5 tablet EVERY AM 1.5 tablet EVERY AM (route: oral) Med Classific ation: Central Nervous System Agents carbidopa 25 mg-levodopa 100 mg tablet 2024-03 00:00: 00 Yes [id number] 1.5 tablet EVERY PM 1.5 tablet EVERY PM (route: oral) Med Classific ation: Central Nervous System Agents carbidopa 25 mg-levodopa 100 mg tablet 2024-03 00:00: 00 Yes [id number] 1.5 tablet BEDTIME 1.5 tablet BEDTIME (route: oral) Med Classific ation: Central Nervous System Agents cyclobenzap rine 10 mg tablet 2024-03 00:00: 00 Yes [id number] 1 tablet BEDTIME 1 tablet BEDTIME (route: oral) Med Classific ation: Locomotor System famotidine 40 mg tablet 2024-03 00:00: 00 Yes [id number] 1 tablet EVERY AM 1 tablet EVERY AM (route: oral) Med Classific ation: Gastroint estinal Therapy Agents meloxicam 15 mg tablet 2024-03 00:00: 00 Yes [id number] 1 tablet EVERY AM 1 tablet EVERY AM (route: oral) Med Classific ation: Analgesic , Anti-infl ammatory or Antipyret ic paroxetine 40 mg tablet 2024-03 00:00: 00 Yes [id number] 1 tablet EVERY AM 1 tablet EVERY AM (route: oral) Med Classific ation: Central Nervous System Agents trazodone 50 mg tablet 2024-03 00:00: 00 Yes [id number] 1 tablet BEDTIME 1 tablet BEDTIME (route: oral) Med Classific ation: Central Nervous System Agents Tylenol Arthritis Pain 650 mg tablet,exte nded release 2024-03 0-23 00:00: 00 Yes [id number] 1 tablet EVERY 8 HOURS 1 tablet EVERY 8 HOURS (route: oral) Med Classific ation: Analgesic , Anti-infl ammatory or Antipyret ic Farxiga 5 mg tablet 2024-03 1-03 00:00: 00 Yes [id number] 1 tablet EVERY AM 1 tablet EVERY [...] FOR SAFETY AND WILL NOTIFY CLINICAL SALES REPRESENTATIVE BUSINESS COURSES AND PHYSICIAN/PROVIDER WITH ANY CHANGE IN CONDITION. [code = SKILLED NURSE WILL MAINTAIN SITUATIONAL AWARENESS FOR SAFETY AND WILL NOTIFY CLINICAL SALES REPRESENTATIVE BUSINESS COURSES AND PHYSICIAN/PROVIDER WITH ANY CHANGE IN CONDITION.] [...] CLEAN AND NEATLY DRESSED IN KITCHEN WITH DESKTOP SUPPORT MANAGER PRESENT D/T MOUSE PROBLEM. HER HOME [...] WITH HER MED PP PER HER MED FILTER PULP WASHER AND DENIES ANY ADVERSE EFFECTS.</paragraph> Encounters Start Date/Time End Date/Time Encounter Type Admission Type Attending Clinicians Care Facility Care Department Encounter ID Discharge Date Discharge Status Discharge Condition Discharge Reason Percent Goals Met 2025-01-19 00:00:00 2025-03-19 00:00:00 Outpatient RECERTIFIC ATSNEHAL [facility] [id number] 76.00
--- OUTSIDE RECORDS SUMMARY | 2025-03-18 19:00 | XMS_ITS | Clinical Summary ---
Author Organization Unknown Care Team Providers Care Weatherseal Technician Name Role Phone YAIMA RASMUSSEN, KAVITA BEST Unavailable Unamirella SPEARS RN, SNEHAL Unavailable Unavailable Payers Payer Name Policy Type Policy Number Effective Date Expira tion Date [employer] MEDICARE ADVANTAGE FFS [id number] MEDICARE - [place] - PDGM [id number] Problems Condition Name Condition Details Condition Category [...] 06-25 00:00: 00 12-31 23:59 :00 No [id number] 2 puff DIRECTED 2 puff DIRECTED (route: inhalation ) Med Classific ation: Respirato ry Therapy Agents bupropion HCl XL 300 mg 24 hr tablet, extended release 06-25 00:00: 00 12-31 23:59 :00 No [id number] 1 tablet DAILY 1 tablet DAILY (route: oral) Med Classific ation: Central Nervous System Agents carbidopa 25 mg-levodopa 100 mg tablet 417 00:00: 00 12-31 23:59 :00 No [id number] 1.5 tablet 4 TIMES DAILY 1.5 tablet 4 TIMES DAILY (route: oral) Med Classific ation: Central Nervous System Agents famotidine 40 mg tablet 417 00:00: 00 09-01 23:59 :00 No [id number] 1 tablet DAILY 1 tablet DAILY (route: oral) Med Classific ation: Gastroint estinal Therapy Agents paroxetine 40 mg tablet 17 00:00: 00 12-31 23:59 :00 No [id number] 1 tablet DAILY 1 tablet DAILY (route: oral) Med Classific ation: Central Nervous System Agents trazodone 50 mg tablet 06-25 00:00: 00 09-01 23:59 :00 No [id number] Per instruc tions BEDTIME Per instructio ns BEDTIME (route: oral) Med Classific ation: Central Nervous System Agents gabapentin 100 mg capsule -24 00:00: 00 09-01 23:59 :00 No [id number] pain Per instruc tions BEDTIME Per instructio ns BEDTIME (route: oral) Med Classific ation: Central Nervous System Agents omeprazole 40 mg capsule,del ayed release -24 00:00: 00 05-20 23:59 :00 No [id number] 1 capsule DAILY 1 capsule DAILY (route: oral) Med Classific ation: Gastroint estinal Therapy Agents gabapentin 100 mg capsule 2023-03 0- 00:00: 00 09-01 23:59 :00 No [id number] Per instruc tions 2 TIMES DAILY Per instructio ns 2 TIMES DAILY (route: oral) Med Classific ation: Central Nervous System Agents famotidine 40 mg tablet 3-16 00:00: 00 12-31 23:59 :00 No [id number] 1 tablet EVERY AM 1 tablet EVERY AM (route: oral) Med Classific ation: Gastroint estinal Therapy Agents Tylenol Arthritis Pain 650 mg tablet,exte nded release 3-21 00:00: 00 12-31 23:59 :00 No [id number] 1 tablet EVERY 8 HOURS 1 tablet EVERY 8 HOURS (route: oral) Med Classific ation: Analgesic , Anti-infl ammatory or Antipyret ic cyclobenzap rine 10 mg tablet 08-05 00:00: 00 09-01 23:59 :00 No [id number] 1 tablet BEDTIME 1 tablet BEDTIME (route: oral) Med Classific ation: Locomotor System meloxicam 15 mg tablet 08-05 00:00: 00 09-01 23:59 :00 No [id number] 1 tablet DAILY 1 tablet DAILY (route: oral) Med Classific ation: Analgesic , Anti-infl ammatory or Antipyret ic cyclobenzap rine 10 mg tablet 09-01 00:00: 00 12-31 23:59 :00 No [id number] 1 tablet BEDTIME 1 tablet BEDTIME (route: oral) Med Classific ation: Locomotor System meloxicam 15 mg tablet 09-01 00:00: 00 12-31 23:59 :00 No [id number] 1 tablet EVERY AM 1 tablet EVERY AM (route: oral) Med Classific ation: Analgesic , Anti-infl ammatory or Antipyret ic trazodone 50 mg tablet 09-01 00:00: 00 12-31 23:59 :00 No [id number] Per instruc tions BEDTIME Per instructio ns BEDTIME (route: oral) Med Classific ation: Central Nervous System Agents erythromyci n 5 mg/gram (0.5 %) eye ointment 2024-03 00:00: 00 Yes [id number] Per instruc tions 4 TIMES DAILY Per instructio ns 4 TIMES DAILY (route: ophthalmic (eye)) Med Classific ation: Ophthalmi c Agents albuterol sulfate HFA 90 mcg/actuati on aerosol inhaler 2024-03 00:00: 00 Yes [id number] 2 puff EVERY 6 HOURS 2 puff EVERY 6 HOURS (route: inhalation ) Med Classific ation: Respirato ry Therapy Agents bupropion HCl XL 300 mg 24 hr tablet, extended release 2024-03 00:00: 00 Yes [id number] 1 tablet EVERY AM 1 tablet EVERY AM (route: oral) Med Classific ation: Central Nervous System Agents carbidopa 25 mg-levodopa 100 mg disintegrat ing tablet 2024-03 00:00: 00 Yes [id number] 1.5 tablet NOON 1.5 tablet NOON (route: oral) Med Classific ation: Central Nervous System Agents carbidopa 25 mg-levodopa 100 mg tablet 2024-03 00:00: 00 Yes [id number] 1.5 tablet EVERY AM 1.5 tablet EVERY AM (route: oral) Med Classific ation: Central Nervous System Agents carbidopa 25 mg-levodopa 100 mg tablet 2024-03 00:00: 00 Yes [id number] 1.5 tablet EVERY PM 1.5 tablet EVERY PM (route: oral) Med Classific ation: Central Nervous System Agents carbidopa 25 mg-levodopa 100 mg tablet 2024-03 00:00: 00 Yes [id number] 1.5 tablet BEDTIME 1.5 tablet BEDTIME (route: oral) Med Classific ation: Central Nervous System Agents cyclobenzap rine 10 mg tablet 2024-03 00:00: 00 Yes [id number] 1 tablet BEDTIME 1 tablet BEDTIME (route: oral) Med Classific ation: Locomotor System famotidine 40 mg tablet 2024-03 00:00: 00 Yes [id number] 1 tablet EVERY AM 1 tablet EVERY AM (route: oral) Med Classific ation: Gastroint estinal Therapy Agents meloxicam 15 mg tablet 2024-03 00:00: 00 Yes [id number] 1 tablet EVERY AM 1 tablet EVERY AM (route: oral) Med Classific ation: Analgesic , Anti-infl ammatory or Antipyret ic paroxetine 40 mg tablet 2024-03 00:00: 00 Yes [id number] 1 tablet EVERY AM 1 tablet EVERY AM (route: oral) Med Classific ation: Central Nervous System Agents trazodone 50 mg tablet 2024-03 00:00: 00 Yes [id number] 1 tablet BEDTIME 1 tablet BEDTIME (route: oral) Med Classific ation: Central Nervous System Agents Tylenol Arthritis Pain 650 mg tablet,exte nded release 2024-03 0-23 00:00: 00 Yes [id number] 1 tablet EVERY 8 HOURS 1 tablet EVERY 8 HOURS (route: oral) Med Classific ation: Analgesic , Anti-infl ammatory or Antipyret ic Farxiga 5 mg tablet 2024-03 1-03 00:00: 00 Yes [id number] 1 tablet EVERY AM 1 tablet EVERY [...] AWARENESS FOR SAFETY AND WILL NOTIFY CLINICAL NEW ACCOUNTS REPRESENTATIVE AND PHYSICIAN/PROVIDER WITH ANY CHANGE IN CONDITION. 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
--- OUTSIDE RECORDS SUMMARY | 2025-03-18 19:00 | XMS_ITS | Clinical Summary ---
Author Organization Unknown Care Team Providers Care Reservation Clerk Name Role Phone YAIMA RASMUSSEN, KAVITA BEST Unavailable Unamirella SPEARS RN, SNEHAL Unavailable Unavailable Payers Payer Name Policy Type Policy Number Effective Date Expira tion Date [employer] MEDICARE ADVANTAGE FFS [id number] MEDICARE - [place] - PDGM [id number] Problems Condition Name Condition Details Condition Category [...] 06-25 00:00: 00 12-31 23:59 :00 No [id number] 2 puff DIRECTED 2 puff DIRECTED (route: inhalation ) Med Classific ation: Respirato ry Therapy Agents bupropion HCl XL 300 mg 24 hr tablet, extended release 06-25 00:00: 00 12-31 23:59 :00 No [id number] 1 tablet DAILY 1 tablet DAILY (route: oral) Med Classific ation: Central Nervous System Agents carbidopa 25 mg-levodopa 100 mg tablet 417 00:00: 00 12-31 23:59 :00 No [id number] 1.5 tablet 4 TIMES DAILY 1.5 tablet 4 TIMES DAILY (route: oral) Med Classific ation: Central Nervous System Agents famotidine 40 mg tablet 417 00:00: 00 09-01 23:59 :00 No [id number] 1 tablet DAILY 1 tablet DAILY (route: oral) Med Classific ation: Gastroint estinal Therapy Agents paroxetine 40 mg tablet 17 00:00: 00 12-31 23:59 :00 No [id number] 1 tablet DAILY 1 tablet DAILY (route: oral) Med Classific ation: Central Nervous System Agents trazodone 50 mg tablet 06-25 00:00: 00 09-01 23:59 :00 No [id number] Per instruc tions BEDTIME Per instructio ns BEDTIME (route: oral) Med Classific ation: Central Nervous System Agents gabapentin 100 mg capsule -24 00:00: 00 09-01 23:59 :00 No [id number] pain Per instruc tions BEDTIME Per instructio ns BEDTIME (route: oral) Med Classific ation: Central Nervous System Agents omeprazole 40 mg capsule,del ayed release -24 00:00: 00 05-20 23:59 :00 No [id number] 1 capsule DAILY 1 capsule DAILY (route: oral) Med Classific ation: Gastroint estinal Therapy Agents gabapentin 100 mg capsule 2023-03 0- 00:00: 00 09-01 23:59 :00 No [id number] Per instruc tions 2 TIMES DAILY Per instructio ns 2 TIMES DAILY (route: oral) Med Classific ation: Central Nervous System Agents famotidine 40 mg tablet 3-16 00:00: 00 12-31 23:59 :00 No [id number] 1 tablet EVERY AM 1 tablet EVERY AM (route: oral) Med Classific ation: Gastroint estinal Therapy Agents Tylenol Arthritis Pain 650 mg tablet,exte nded release 3-21 00:00: 00 12-31 23:59 :00 No [id number] 1 tablet EVERY 8 HOURS 1 tablet EVERY 8 HOURS (route: oral) Med Classific ation: Analgesic , Anti-infl ammatory or Antipyret ic cyclobenzap rine 10 mg tablet 08-05 00:00: 00 09-01 23:59 :00 No [id number] 1 tablet BEDTIME 1 tablet BEDTIME (route: oral) Med Classific ation: Locomotor System meloxicam 15 mg tablet 08-05 00:00: 00 09-01 23:59 :00 No [id number] 1 tablet DAILY 1 tablet DAILY (route: oral) Med Classific ation: Analgesic , Anti-infl ammatory or Antipyret ic cyclobenzap rine 10 mg tablet 09-01 00:00: 00 12-31 23:59 :00 No [id number] 1 tablet BEDTIME 1 tablet BEDTIME (route: oral) Med Classific ation: Locomotor System meloxicam 15 mg tablet 09-01 00:00: 00 12-31 23:59 :00 No [id number] 1 tablet EVERY AM 1 tablet EVERY AM (route: oral) Med Classific ation: Analgesic , Anti-infl ammatory or Antipyret ic trazodone 50 mg tablet 09-01 00:00: 00 12-31 23:59 :00 No [id number] Per instruc tions BEDTIME Per instructio ns BEDTIME (route: oral) Med Classific ation: Central Nervous System Agents erythromyci n 5 mg/gram (0.5 %) eye ointment 2024-03 00:00: 00 Yes [id number] Per instruc tions 4 TIMES DAILY Per instructio ns 4 TIMES DAILY (route: ophthalmic (eye)) Med Classific ation: Ophthalmi c Agents albuterol sulfate HFA 90 mcg/actuati on aerosol inhaler 2024-03 00:00: 00 Yes [id number] 2 puff EVERY 6 HOURS 2 puff EVERY 6 HOURS (route: inhalation ) Med Classific ation: Respirato ry Therapy Agents bupropion HCl XL 300 mg 24 hr tablet, extended release 2024-03 00:00: 00 Yes [id number] 1 tablet EVERY AM 1 tablet EVERY AM (route: oral) Med Classific ation: Central Nervous System Agents carbidopa 25 mg-levodopa 100 mg disintegrat ing tablet 2024-03 00:00: 00 Yes [id number] 1.5 tablet NOON 1.5 tablet NOON (route: oral) Med Classific ation: Central Nervous System Agents carbidopa 25 mg-levodopa 100 mg tablet 2024-03 00:00: 00 Yes [id number] 1.5 tablet EVERY AM 1.5 tablet EVERY AM (route: oral) Med Classific ation: Central Nervous System Agents carbidopa 25 mg-levodopa 100 mg tablet 2024-03 00:00: 00 Yes [id number] 1.5 tablet EVERY PM 1.5 tablet EVERY PM (route: oral) Med Classific ation: Central Nervous System Agents carbidopa 25 mg-levodopa 100 mg tablet 2024-03 00:00: 00 Yes [id number] 1.5 tablet BEDTIME 1.5 tablet BEDTIME (route: oral) Med Classific ation: Central Nervous System Agents cyclobenzap rine 10 mg tablet 2024-03 00:00: 00 Yes [id number] 1 tablet BEDTIME 1 tablet BEDTIME (route: oral) Med Classific ation: Locomotor System famotidine 40 mg tablet 2024-03 00:00: 00 Yes [id number] 1 tablet EVERY AM 1 tablet EVERY AM (route: oral) Med Classific ation: Gastroint estinal Therapy Agents meloxicam 15 mg tablet 2024-03 00:00: 00 Yes [id number] 1 tablet EVERY AM 1 tablet EVERY AM (route: oral) Med Classific ation: Analgesic , Anti-infl ammatory or Antipyret ic paroxetine 40 mg tablet 2024-03 00:00: 00 Yes [id number] 1 tablet EVERY AM 1 tablet EVERY AM (route: oral) Med Classific ation: Central Nervous System Agents trazodone 50 mg tablet 2024-03 00:00: 00 Yes [id number] 1 tablet BEDTIME 1 tablet BEDTIME (route: oral) Med Classific ation: Central Nervous System Agents Tylenol Arthritis Pain 650 mg tablet,exte nded release 2024-03 0-23 00:00: 00 Yes [id number] 1 tablet EVERY 8 HOURS 1 tablet EVERY 8 HOURS (route: oral) Med Classific ation: Analgesic , Anti-infl ammatory or Antipyret ic Farxiga 5 mg tablet 2024-03 1-03 00:00: 00 Yes [id number] 1 tablet EVERY AM 1 tablet EVERY [...] AWARENESS FOR SAFETY AND WILL NOTIFY CLINICAL PRODUCTION OPERATIONS ENGINEER AND PHYSICIAN/PROVIDER WITH ANY CHANGE IN CONDITION. 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
--- OUTSIDE RECORDS SUMMARY | 2025-03-18 19:00 | XMS_ITS | Clinical Summary ---
Author Organization Unknown Care Team Providers Care Tram Driver Name Role Phone YAIMA RASMUSSEN, KAVITA BEST Unavailable Unamirella SPEARS RN, SNEHAL Unavailable Unavailable Payers Payer Name Policy Type Policy Number Effective Date Expira tion Date [employer] MEDICARE ADVANTAGE FFS [id number] MEDICARE - [place] - PDGM [id number] Problems Condition Name Condition Details Condition Category [...] 06-25 00:00: 00 12-31 23:59 :00 No [id number] 2 puff DIRECTED 2 puff DIRECTED (route: inhalation ) Med Classific ation: Respirato ry Therapy Agents bupropion HCl XL 300 mg 24 hr tablet, extended release 06-25 00:00: 00 12-31 23:59 :00 No [id number] 1 tablet DAILY 1 tablet DAILY (route: oral) Med Classific ation: Central Nervous System Agents carbidopa 25 mg-levodopa 100 mg tablet 417 00:00: 00 12-31 23:59 :00 No [id number] 1.5 tablet 4 TIMES DAILY 1.5 tablet 4 TIMES DAILY (route: oral) Med Classific ation: Central Nervous System Agents famotidine 40 mg tablet 417 00:00: 00 09-01 23:59 :00 No [id number] 1 tablet DAILY 1 tablet DAILY (route: oral) Med Classific ation: Gastroint estinal Therapy Agents paroxetine 40 mg tablet 17 00:00: 00 12-31 23:59 :00 No [id number] 1 tablet DAILY 1 tablet DAILY (route: oral) Med Classific ation: Central Nervous System Agents trazodone 50 mg tablet 06-25 00:00: 00 09-01 23:59 :00 No [id number] Per instruc tions BEDTIME Per instructio ns BEDTIME (route: oral) Med Classific ation: Central Nervous System Agents gabapentin 100 mg capsule -24 00:00: 00 09-01 23:59 :00 No [id number] pain Per instruc tions BEDTIME Per instructio ns BEDTIME (route: oral) Med Classific ation: Central Nervous System Agents omeprazole 40 mg capsule,del ayed release -24 00:00: 00 05-20 23:59 :00 No [id number] 1 capsule DAILY 1 capsule DAILY (route: oral) Med Classific ation: Gastroint estinal Therapy Agents gabapentin 100 mg capsule 2023-03 0- 00:00: 00 09-01 23:59 :00 No [id number] Per instruc tions 2 TIMES DAILY Per instructio ns 2 TIMES DAILY (route: oral) Med Classific ation: Central Nervous System Agents famotidine 40 mg tablet 3-16 00:00: 00 12-31 23:59 :00 No [id number] 1 tablet EVERY AM 1 tablet EVERY AM (route: oral) Med Classific ation: Gastroint estinal Therapy Agents Tylenol Arthritis Pain 650 mg tablet,exte nded release 3-21 00:00: 00 12-31 23:59 :00 No [id number] 1 tablet EVERY 8 HOURS 1 tablet EVERY 8 HOURS (route: oral) Med Classific ation: Analgesic , Anti-infl ammatory or Antipyret ic cyclobenzap rine 10 mg tablet 08-05 00:00: 00 09-01 23:59 :00 No [id number] 1 tablet BEDTIME 1 tablet BEDTIME (route: oral) Med Classific ation: Locomotor System meloxicam 15 mg tablet 08-05 00:00: 00 09-01 23:59 :00 No [id number] 1 tablet DAILY 1 tablet DAILY (route: oral) Med Classific ation: Analgesic , Anti-infl ammatory or Antipyret ic cyclobenzap rine 10 mg tablet 09-01 00:00: 00 12-31 23:59 :00 No [id number] 1 tablet BEDTIME 1 tablet BEDTIME (route: oral) Med Classific ation: Locomotor System meloxicam 15 mg tablet 09-01 00:00: 00 12-31 23:59 :00 No [id number] 1 tablet EVERY AM 1 tablet EVERY AM (route: oral) Med Classific ation: Analgesic , Anti-infl ammatory or Antipyret ic trazodone 50 mg tablet 09-01 00:00: 00 12-31 23:59 :00 No [id number] Per instruc tions BEDTIME Per instructio ns BEDTIME (route: oral) Med Classific ation: Central Nervous System Agents erythromyci n 5 mg/gram (0.5 %) eye ointment 2024-03 00:00: 00 Yes [id number] Per instruc tions 4 TIMES DAILY Per instructio ns 4 TIMES DAILY (route: ophthalmic (eye)) Med Classific ation: Ophthalmi c Agents albuterol sulfate HFA 90 mcg/actuati on aerosol inhaler 2024-03 00:00: 00 Yes [id number] 2 puff EVERY 6 HOURS 2 puff EVERY 6 HOURS (route: inhalation ) Med Classific ation: Respirato ry Therapy Agents bupropion HCl XL 300 mg 24 hr tablet, extended release 2024-03 00:00: 00 Yes [id number] 1 tablet EVERY AM 1 tablet EVERY AM (route: oral) Med Classific ation: Central Nervous System Agents carbidopa 25 mg-levodopa 100 mg disintegrat ing tablet 2024-03 00:00: 00 Yes [id number] 1.5 tablet NOON 1.5 tablet NOON (route: oral) Med Classific ation: Central Nervous System Agents carbidopa 25 mg-levodopa 100 mg tablet 2024-03 00:00: 00 Yes [id number] 1.5 tablet EVERY AM 1.5 tablet EVERY AM (route: oral) Med Classific ation: Central Nervous System Agents carbidopa 25 mg-levodopa 100 mg tablet 2024-03 00:00: 00 Yes [id number] 1.5 tablet EVERY PM 1.5 tablet EVERY PM (route: oral) Med Classific ation: Central Nervous System Agents carbidopa 25 mg-levodopa 100 mg tablet 2024-03 00:00: 00 Yes [id number] 1.5 tablet BEDTIME 1.5 tablet BEDTIME (route: oral) Med Classific ation: Central Nervous System Agents cyclobenzap rine 10 mg tablet 2024-03 00:00: 00 Yes [id number] 1 tablet BEDTIME 1 tablet BEDTIME (route: oral) Med Classific ation: Locomotor System famotidine 40 mg tablet 2024-03 00:00: 00 Yes [id number] 1 tablet EVERY AM 1 tablet EVERY AM (route: oral) Med Classific ation: Gastroint estinal Therapy Agents meloxicam 15 mg tablet 2024-03 00:00: 00 Yes [id number] 1 tablet EVERY AM 1 tablet EVERY AM (route: oral) Med Classific ation: Analgesic , Anti-infl ammatory or Antipyret ic paroxetine 40 mg tablet 2024-03 00:00: 00 Yes [id number] 1 tablet EVERY AM 1 tablet EVERY AM (route: oral) Med Classific ation: Central Nervous System Agents trazodone 50 mg tablet 2024-03 00:00: 00 Yes [id number] 1 tablet BEDTIME 1 tablet BEDTIME (route: oral) Med Classific ation: Central Nervous System Agents Tylenol Arthritis Pain 650 mg tablet,exte nded release 2024-03 0-23 00:00: 00 Yes [id number] 1 tablet EVERY 8 HOURS 1 tablet EVERY 8 HOURS (route: oral) Med Classific ation: Analgesic , Anti-infl ammatory or Antipyret ic Farxiga 5 mg tablet 2024-03 1-03 00:00: 00 Yes [id number] 1 tablet EVERY AM 1 tablet EVERY [...] FOR SAFETY AND WILL NOTIFY CLINICAL MANAGER SALES AND PHYSICIAN/PROVIDER WITH ANY CHANGE IN CONDITION. [code = SKILLED NURSE WILL MAINTAIN SITUATIONAL AWARENESS FOR SAFETY AND WILL NOTIFY CLINICAL MANAGER SALES AND PHYSICIAN/PROVIDER WITH ANY CHANGE IN CONDITION.] [...] CLEAN AND NEATLY DRESSED IN KITCHEN WITH PREMIUM AUDITOR PRESENT D/T MOUSE PROBLEM. 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
--- OUTSIDE RECORDS SUMMARY | 2025-03-18 19:00 | XMS_ITS | Clinical Summary ---
Author Organization Unknown Care Team Providers Care Sack Sorter Name Role Phone YAIMA RASMUSSEN, KAVITA BEST Unavailable Unamirella SPEARS RN, SNEHAL Unavailable Unavailable Payers Payer Name Policy Type Policy Number Effective Date Expira tion Date [employer] MEDICARE ADVANTAGE FFS [id number] MEDICARE - [place] PDGM [id number] Problems Condition Name Condition Details Condition Category [...] 06-25 00:00: 00 12-31 23:59 :00 No [id number] 2 puff DIRECTED 2 puff DIRECTED (route: inhalation ) Med Classific ation: Respirato ry Therapy Agents bupropion HCl XL 300 mg 24 hr tablet, extended release 06-25 00:00: 00 12-31 23:59 :00 No [id number] 1 tablet DAILY 1 tablet DAILY (route: oral) Med Classific ation: Central Nervous System Agents carbidopa 25 mg-levodopa 100 mg tablet 417 00:00: 00 12-31 23:59 :00 No [id number] 1.5 tablet 4 TIMES DAILY 1.5 tablet 4 TIMES DAILY (route: oral) Med Classific ation: Central Nervous System Agents famotidine 40 mg tablet 417 00:00: 00 09-01 23:59 :00 No [id number] 1 tablet DAILY 1 tablet DAILY (route: oral) Med Classific ation: Gastroint estinal Therapy Agents paroxetine 40 mg tablet 17 00:00: 00 12-31 23:59 :00 No [id number] 1 tablet DAILY 1 tablet DAILY (route: oral) Med Classific ation: Central Nervous System Agents trazodone 50 mg tablet 06-25 00:00: 00 09-01 23:59 :00 No [id number] Per instruc tions BEDTIME Per instructio ns BEDTIME (route: oral) Med Classific ation: Central Nervous System Agents gabapentin 100 mg capsule -24 00:00: 00 09-01 23:59 :00 No [id number] pain Per instruc tions BEDTIME Per instructio ns BEDTIME (route: oral) Med Classific ation: Central Nervous System Agents omeprazole 40 mg capsule,del ayed release -24 00:00: 00 05-20 23:59 :00 No [id number] 1 capsule DAILY 1 capsule DAILY (route: oral) Med Classific ation: Gastroint estinal Therapy Agents gabapentin 100 mg capsule 2023-03 0- 00:00: 00 09-01 23:59 :00 No [id number] Per instruc tions 2 TIMES DAILY Per instructio ns 2 TIMES DAILY (route: oral) Med Classific ation: Central Nervous System Agents famotidine 40 mg tablet 3-16 00:00: 00 12-31 23:59 :00 No [id number] 1 tablet EVERY AM 1 tablet EVERY AM (route: oral) Med Classific ation: Gastroint estinal Therapy Agents Tylenol Arthritis Pain 650 mg tablet,exte nded release 3-21 00:00: 00 12-31 23:59 :00 No [id number] 1 tablet EVERY 8 HOURS 1 tablet EVERY 8 HOURS (route: oral) Med Classific ation: Analgesic , Anti-infl ammatory or Antipyret ic cyclobenzap rine 10 mg tablet 08-05 00:00: 00 09-01 23:59 :00 No [id number] 1 tablet BEDTIME 1 tablet BEDTIME (route: oral) Med Classific ation: Locomotor System meloxicam 15 mg tablet 08-05 00:00: 00 09-01 23:59 :00 No [id number] 1 tablet DAILY 1 tablet DAILY (route: oral) Med Classific ation: Analgesic , Anti-infl ammatory or Antipyret ic cyclobenzap rine 10 mg tablet 09-01 00:00: 00 12-31 23:59 :00 No [id number] 1 tablet BEDTIME 1 tablet BEDTIME (route: oral) Med Classific ation: Locomotor System meloxicam 15 mg tablet 09-01 00:00: 00 12-31 23:59 :00 No [id number] 1 tablet EVERY AM 1 tablet EVERY AM (route: oral) Med Classific ation: Analgesic , Anti-infl ammatory or Antipyret ic trazodone 50 mg tablet 09-01 00:00: 00 12-31 23:59 :00 No [id number] Per instruc tions BEDTIME Per instructio ns BEDTIME (route: oral) Med Classific ation: Central Nervous System Agents erythromyci n 5 mg/gram (0.5 %) eye ointment 2024-03 00:00: 00 Yes [id number] Per instruc tions 4 TIMES DAILY Per instructio ns 4 TIMES DAILY (route: ophthalmic (eye)) Med Classific ation: Ophthalmi c Agents albuterol sulfate HFA 90 mcg/actuati on aerosol inhaler 2024-03 00:00: 00 Yes [id number] 2 puff EVERY 6 HOURS 2 puff EVERY 6 HOURS (route: inhalation ) Med Classific ation: Respirato ry Therapy Agents bupropion HCl XL 300 mg 24 hr tablet, extended release 2024-03 00:00: 00 Yes [id number] 1 tablet EVERY AM 1 tablet EVERY AM (route: oral) Med Classific ation: Central Nervous System Agents carbidopa 25 mg-levodopa 100 mg disintegrat ing tablet 2024-03 00:00: 00 Yes [id number] 1.5 tablet NOON 1.5 tablet NOON (route: oral) Med Classific ation: Central Nervous System Agents carbidopa 25 mg-levodopa 100 mg tablet 2024-03 00:00: 00 Yes [id number] 1.5 tablet EVERY AM 1.5 tablet EVERY AM (route: oral) Med Classific ation: Central Nervous System Agents carbidopa 25 mg-levodopa 100 mg tablet 2024-03 00:00: 00 Yes [id number] 1.5 tablet EVERY PM 1.5 tablet EVERY PM (route: oral) Med Classific ation: Central Nervous System Agents carbidopa 25 mg-levodopa 100 mg tablet 2024-03 00:00: 00 Yes [id number] 1.5 tablet BEDTIME 1.5 tablet BEDTIME (route: oral) Med Classific ation: Central Nervous System Agents cyclobenzap rine 10 mg tablet 2024-03 00:00: 00 Yes [id number] 1 tablet BEDTIME 1 tablet BEDTIME (route: oral) Med Classific ation: Locomotor System famotidine 40 mg tablet 2024-03 00:00: 00 Yes [id number] 1 tablet EVERY AM 1 tablet EVERY AM (route: oral) Med Classific ation: Gastroint estinal Therapy Agents meloxicam 15 mg tablet 2024-03 00:00: 00 Yes [id number] 1 tablet EVERY AM 1 tablet EVERY AM (route: oral) Med Classific ation: Analgesic , Anti-infl ammatory or Antipyret ic paroxetine 40 mg tablet 2024-03 00:00: 00 Yes [id number] 1 tablet EVERY AM 1 tablet EVERY AM (route: oral) Med Classific ation: Central Nervous System Agents trazodone 50 mg tablet 2024-03 00:00: 00 Yes [id number] 1 tablet BEDTIME 1 tablet BEDTIME (route: oral) Med Classific ation: Central Nervous System Agents Tylenol Arthritis Pain 650 mg tablet,exte nded release 2024-03 0-23 00:00: 00 Yes [id number] 1 tablet EVERY 8 HOURS 1 tablet EVERY 8 HOURS (route: oral) Med Classific ation: Analgesic , Anti-infl ammatory or Antipyret ic Farxiga 5 mg tablet 2024-03 1-03 00:00: 00 Yes [id number] 1 tablet EVERY AM 1 tablet EVERY [...] AWARENESS FOR SAFETY AND WILL NOTIFY CLINICAL HAMMER MILL OPERATOR AND PHYSICIAN/PROVIDER WITH ANY CHANGE IN CONDITION. [code = SKILLED NURSE WILL MAINTAIN SITUATIONAL AWARENESS FOR SAFETY AND WILL NOTIFY CLINICAL HAMMER MILL OPERATOR AND PHYSICIAN/PROVIDER WITH ANY CHANGE IN [...] CLEAN AND NEATLY DRESSED IN KITCHEN WITH PHARMACY TECHNICIAN ASSISTANT PRESENT D/T MOUSE PROBLEM. HER HOME [...] WITH HER MED PP PER HER MED CASE FOLDER AND DENIES ANY ADVERSE EFFECTS.</paragraph> Encounters Start Date/Time End Date/Time Encounter Type Admission Type Attending Clinicians Care Facility Care Department Encounter ID Discharge Date Discharge Status Discharge Condition Discharge Reason Percent Goals Met 2025-01-19 00:00:00 2025-03-19 00:00:00 Outpatient RECERTIFIC ATSNEHAL VELA [facility] [id number] 76.00
--- OUTSIDE RECORDS SUMMARY | 2025-03-18 19:00 | XMS_ITS | Clinical Summary ---
Author Organization Unknown Care Team Providers Care Sharepoint Administrator Name Role Phone YAIMA RASMUSSEN, KAVITA BEST Unavailable Unamirella SPEARS RN, SNEHAL Unavailable Unavailable Payers Payer Name Policy Type Policy Number Effective Date Expira tion Date [employer] MEDICARE ADVANTAGE FFS [id number] MEDICARE - [place]GM [id number] Problems Condition Name Condition Details Condition Category [...] 06-25 00:00: 00 12-31 23:59 :00 No [id number] 2 puff DIRECTED 2 puff DIRECTED (route: inhalation ) Med Classific ation: Respirato ry Therapy Agents bupropion HCl XL 300 mg 24 hr tablet, extended release 06-25 00:00: 00 12-31 23:59 :00 No [id number] 1 tablet DAILY 1 tablet DAILY (route: oral) Med Classific ation: Central Nervous System Agents carbidopa 25 mg-levodopa 100 mg tablet 417 00:00: 00 12-31 23:59 :00 No [id number] 1.5 tablet 4 TIMES DAILY 1.5 tablet 4 TIMES DAILY (route: oral) Med Classific ation: Central Nervous System Agents famotidine 40 mg tablet 417 00:00: 00 09-01 23:59 :00 No [id number] 1 tablet DAILY 1 tablet DAILY (route: oral) Med Classific ation: Gastroint estinal Therapy Agents paroxetine 40 mg tablet 17 00:00: 00 12-31 23:59 :00 No [id number] 1 tablet DAILY 1 tablet DAILY (route: oral) Med Classific ation: Central Nervous System Agents trazodone 50 mg tablet 06-25 00:00: 00 09-01 23:59 :00 No [id number] Per instruc tions BEDTIME Per instructio ns BEDTIME (route: oral) Med Classific ation: Central Nervous System Agents gabapentin 100 mg capsule -24 00:00: 00 09-01 23:59 :00 No [id number] pain Per instruc tions BEDTIME Per instructio ns BEDTIME (route: oral) Med Classific ation: Central Nervous System Agents omeprazole 40 mg capsule,del ayed release -24 00:00: 00 05-20 23:59 :00 No [id number] 1 capsule DAILY 1 capsule DAILY (route: oral) Med Classific ation: Gastroint estinal Therapy Agents gabapentin 100 mg capsule 2023-03 0- 00:00: 00 09-01 23:59 :00 No [id number] Per instruc tions 2 TIMES DAILY Per instructio ns 2 TIMES DAILY (route: oral) Med Classific ation: Central Nervous System Agents famotidine 40 mg tablet 3-16 00:00: 00 12-31 23:59 :00 No [id number] 1 tablet EVERY AM 1 tablet EVERY AM (route: oral) Med Classific ation: Gastroint estinal Therapy Agents Tylenol Arthritis Pain 650 mg tablet,exte nded release 3-21 00:00: 00 12-31 23:59 :00 No [id number] 1 tablet EVERY 8 HOURS 1 tablet EVERY 8 HOURS (route: oral) Med Classific ation: Analgesic , Anti-infl ammatory or Antipyret ic cyclobenzap rine 10 mg tablet 08-05 00:00: 00 09-01 23:59 :00 No [id number] 1 tablet BEDTIME 1 tablet BEDTIME (route: oral) Med Classific ation: Locomotor System meloxicam 15 mg tablet 08-05 00:00: 00 09-01 23:59 :00 No [id number] 1 tablet DAILY 1 tablet DAILY (route: oral) Med Classific ation: Analgesic , Anti-infl ammatory or Antipyret ic cyclobenzap rine 10 mg tablet 09-01 00:00: 00 12-31 23:59 :00 No [id number] 1 tablet BEDTIME 1 tablet BEDTIME (route: oral) Med Classific ation: Locomotor System meloxicam 15 mg tablet 09-01 00:00: 00 12-31 23:59 :00 No [id number] 1 tablet EVERY AM 1 tablet EVERY AM (route: oral) Med Classific ation: Analgesic , Anti-infl ammatory or Antipyret ic trazodone 50 mg tablet 09-01 00:00: 00 12-31 23:59 :00 No [id number] Per instruc tions BEDTIME Per instructio ns BEDTIME (route: oral) Med Classific ation: Central Nervous System Agents erythromyci n 5 mg/gram (0.5 %) eye ointment 2024-03 00:00: 00 Yes [id number] Per instruc tions 4 TIMES DAILY Per instructio ns 4 TIMES DAILY (route: ophthalmic (eye)) Med Classific ation: Ophthalmi c Agents albuterol sulfate HFA 90 mcg/actuati on aerosol inhaler 2024-03 00:00: 00 Yes [id number] 2 puff EVERY 6 HOURS 2 puff EVERY 6 HOURS (route: inhalation ) Med Classific ation: Respirato ry Therapy Agents bupropion HCl XL 300 mg 24 hr tablet, extended release 2024-03 00:00: 00 Yes [id number] 1 tablet EVERY AM 1 tablet EVERY AM (route: oral) Med Classific ation: Central Nervous System Agents carbidopa 25 mg-levodopa 100 mg disintegrat ing tablet 2024-03 00:00: 00 Yes [id number] 1.5 tablet NOON 1.5 tablet NOON (route: oral) Med Classific ation: Central Nervous System Agents carbidopa 25 mg-levodopa 100 mg tablet 2024-03 00:00: 00 Yes [id number] 1.5 tablet EVERY AM 1.5 tablet EVERY AM (route: oral) Med Classific ation: Central Nervous System Agents carbidopa 25 mg-levodopa 100 mg tablet 2024-03 00:00: 00 Yes [id number] 1.5 tablet EVERY PM 1.5 tablet EVERY PM (route: oral) Med Classific ation: Central Nervous System Agents carbidopa 25 mg-levodopa 100 mg tablet 2024-03 00:00: 00 Yes [id number] 1.5 tablet BEDTIME 1.5 tablet BEDTIME (route: oral) Med Classific ation: Central Nervous System Agents cyclobenzap rine 10 mg tablet 2024-03 00:00: 00 Yes [id number] 1 tablet BEDTIME 1 tablet BEDTIME (route: oral) Med Classific ation: Locomotor System famotidine 40 mg tablet 2024-03 00:00: 00 Yes [id number] 1 tablet EVERY AM 1 tablet EVERY AM (route: oral) Med Classific ation: Gastroint estinal Therapy Agents meloxicam 15 mg tablet 2024-03 00:00: 00 Yes [id number] 1 tablet EVERY AM 1 tablet EVERY AM (route: oral) Med Classific ation: Analgesic , Anti-infl ammatory or Antipyret ic paroxetine 40 mg tablet 2024-03 00:00: 00 Yes [id number] 1 tablet EVERY AM 1 tablet EVERY AM (route: oral) Med Classific ation: Central Nervous System Agents trazodone 50 mg tablet 2024-03 00:00: 00 Yes [id number] 1 tablet BEDTIME 1 tablet BEDTIME (route: oral) Med Classific ation: Central Nervous System Agents Tylenol Arthritis Pain 650 mg tablet,exte nded release 2024-03 0-23 00:00: 00 Yes [id number] 1 tablet EVERY 8 HOURS 1 tablet EVERY 8 HOURS (route: oral) Med Classific ation: Analgesic , Anti-infl ammatory or Antipyret ic Farxiga 5 mg tablet 2024-03 1-03 00:00: 00 Yes [id number] 1 tablet EVERY AM 1 tablet EVERY [...] SAFETY AND WILL NOTIFY CLINICAL REMOTE SENSING SPECIALIST AND PHYSICIAN/PROVIDER WITH ANY CHANGE IN CONDITION. [code = SKILLED NURSE WILL MAINTAIN SITUATIONAL AWARENESS FOR SAFETY AND WILL NOTIFY CLINICAL REMOTE SENSING SPECIALIST AND PHYSICIAN/PROVIDER WITH ANY CHANGE IN [...] CLEAN AND NEATLY DRESSED IN KITCHEN WITH EEG TECHNICIAN PRESENT D/T MOUSE PROBLEM. HER HOME [...] WITH HER MED PP PER HER MED ICER MACHINE OPERATOR AND DENIES ANY ADVERSE EFFECTS.</paragraph> Encounters Start Date/Time End Date/Time Encounter Type Admission Type Attending Clinicians Care Facility Care Department Encounter ID Discharge Date Discharge Status Discharge Condition Discharge Reason Percent Goals Met 2025-01-19 00:00:00 2025-03-19 00:00:00 Outpatient RECERTIFIC ATSNEHAL [facility] [id number] 76.00
--- OUTSIDE RECORDS SUMMARY | 2025-03-18 19:00 | XMS_ITS | Clinical Summary ---
Author Organization Unknown Care Team Providers Care Credit Control Manager Name Role Phone YAIMA RASMUSSEN, KAVITA BEST Unavailable Unamirella SPEARS RN, SNEHAL Unavailable Unavailable Payers Payer Name Policy Type Policy Number Effective Date Expira tion Date [employer] MEDICARE ADVANTAGE FFS [id number] MEDICARE - [place] - PDGM [id number] Problems Condition Name Condition Details Condition Category [...] 06-25 00:00: 00 12-31 23:59 :00 No [id number] 2 puff DIRECTED 2 puff DIRECTED (route: inhalation ) Med Classific ation: Respirato ry Therapy Agents bupropion HCl XL 300 mg 24 hr tablet, extended release 06-25 00:00: 00 12-31 23:59 :00 No [id number] 1 tablet DAILY 1 tablet DAILY (route: oral) Med Classific ation: Central Nervous System Agents carbidopa 25 mg-levodopa 100 mg tablet 417 00:00: 00 12-31 23:59 :00 No [id number] 1.5 tablet 4 TIMES DAILY 1.5 tablet 4 TIMES DAILY (route: oral) Med Classific ation: Central Nervous System Agents famotidine 40 mg tablet 417 00:00: 00 09-01 23:59 :00 No [id number] 1 tablet DAILY 1 tablet DAILY (route: oral) Med Classific ation: Gastroint estinal Therapy Agents paroxetine 40 mg tablet 17 00:00: 00 12-31 23:59 :00 No [id number] 1 tablet DAILY 1 tablet DAILY (route: oral) Med Classific ation: Central Nervous System Agents trazodone 50 mg tablet 06-25 00:00: 00 09-01 23:59 :00 No [id number] Per instruc tions BEDTIME Per instructio ns BEDTIME (route: oral) Med Classific ation: Central Nervous System Agents gabapentin 100 mg capsule -24 00:00: 00 09-01 23:59 :00 No [id number] pain Per instruc tions BEDTIME Per instructio ns BEDTIME (route: oral) Med Classific ation: Central Nervous System Agents omeprazole 40 mg capsule,del ayed release -24 00:00: 00 05-20 23:59 :00 No [id number] 1 capsule DAILY 1 capsule DAILY (route: oral) Med Classific ation: Gastroint estinal Therapy Agents gabapentin 100 mg capsule 2023-03 0- 00:00: 00 09-01 23:59 :00 No [id number] Per instruc tions 2 TIMES DAILY Per instructio ns 2 TIMES DAILY (route: oral) Med Classific ation: Central Nervous System Agents famotidine 40 mg tablet 3-16 00:00: 00 12-31 23:59 :00 No [id number] 1 tablet EVERY AM 1 tablet EVERY AM (route: oral) Med Classific ation: Gastroint estinal Therapy Agents Tylenol Arthritis Pain 650 mg tablet,exte nded release 3-21 00:00: 00 12-31 23:59 :00 No [id number] 1 tablet EVERY 8 HOURS 1 tablet EVERY 8 HOURS (route: oral) Med Classific ation: Analgesic , Anti-infl ammatory or Antipyret ic cyclobenzap rine 10 mg tablet 08-05 00:00: 00 09-01 23:59 :00 No [id number] 1 tablet BEDTIME 1 tablet BEDTIME (route: oral) Med Classific ation: Locomotor System meloxicam 15 mg tablet 08-05 00:00: 00 09-01 23:59 :00 No [id number] 1 tablet DAILY 1 tablet DAILY (route: oral) Med Classific ation: Analgesic , Anti-infl ammatory or Antipyret ic cyclobenzap rine 10 mg tablet 09-01 00:00: 00 12-31 23:59 :00 No [id number] 1 tablet BEDTIME 1 tablet BEDTIME (route: oral) Med Classific ation: Locomotor System meloxicam 15 mg tablet 09-01 00:00: 00 12-31 23:59 :00 No [id number] 1 tablet EVERY AM 1 tablet EVERY AM (route: oral) Med Classific ation: Analgesic , Anti-infl ammatory or Antipyret ic trazodone 50 mg tablet 09-01 00:00: 00 12-31 23:59 :00 No [id number] Per instruc tions BEDTIME Per instructio ns BEDTIME (route: oral) Med Classific ation: Central Nervous System Agents erythromyci n 5 mg/gram (0.5 %) eye ointment 2024-03 00:00: 00 Yes [id number] Per instruc tions 4 TIMES DAILY Per instructio ns 4 TIMES DAILY (route: ophthalmic (eye)) Med Classific ation: Ophthalmi c Agents albuterol sulfate HFA 90 mcg/actuati on aerosol inhaler 2024-03 00:00: 00 Yes [id number] 2 puff EVERY 6 HOURS 2 puff EVERY 6 HOURS (route: inhalation ) Med Classific ation: Respirato ry Therapy Agents bupropion HCl XL 300 mg 24 hr tablet, extended release 2024-03 00:00: 00 Yes [id number] 1 tablet EVERY AM 1 tablet EVERY AM (route: oral) Med Classific ation: Central Nervous System Agents carbidopa 25 mg-levodopa 100 mg disintegrat ing tablet 2024-03 00:00: 00 Yes [id number] 1.5 tablet NOON 1.5 tablet NOON (route: oral) Med Classific ation: Central Nervous System Agents carbidopa 25 mg-levodopa 100 mg tablet 2024-03 00:00: 00 Yes [id number] 1.5 tablet EVERY AM 1.5 tablet EVERY AM (route: oral) Med Classific ation: Central Nervous System Agents carbidopa 25 mg-levodopa 100 mg tablet 2024-03 00:00: 00 Yes [id number] 1.5 tablet EVERY PM 1.5 tablet EVERY PM (route: oral) Med Classific ation: Central Nervous System Agents carbidopa 25 mg-levodopa 100 mg tablet 2024-03 00:00: 00 Yes [id number] 1.5 tablet BEDTIME 1.5 tablet BEDTIME (route: oral) Med Classific ation: Central Nervous System Agents cyclobenzap rine 10 mg tablet 2024-03 00:00: 00 Yes [id number] 1 tablet BEDTIME 1 tablet BEDTIME (route: oral) Med Classific ation: Locomotor System famotidine 40 mg tablet 2024-03 00:00: 00 Yes [id number] 1 tablet EVERY AM 1 tablet EVERY AM (route: oral) Med Classific ation: Gastroint estinal Therapy Agents meloxicam 15 mg tablet 2024-03 00:00: 00 Yes [id number] 1 tablet EVERY AM 1 tablet EVERY AM (route: oral) Med Classific ation: Analgesic , Anti-infl ammatory or Antipyret ic paroxetine 40 mg tablet 2024-03 00:00: 00 Yes [id number] 1 tablet EVERY AM 1 tablet EVERY AM (route: oral) Med Classific ation: Central Nervous System Agents trazodone 50 mg tablet 2024-03 00:00: 00 Yes [id number] 1 tablet BEDTIME 1 tablet BEDTIME (route: oral) Med Classific ation: Central Nervous System Agents Tylenol Arthritis Pain 650 mg tablet,exte nded release 2024-03 0-23 00:00: 00 Yes [id number] 1 tablet EVERY 8 HOURS 1 tablet EVERY 8 HOURS (route: oral) Med Classific ation: Analgesic , Anti-infl ammatory or Antipyret ic Farxiga 5 mg tablet 2024-03 1-03 00:00: 00 Yes [id number] 1 tablet EVERY AM 1 tablet EVERY [...] AWARENESS FOR SAFETY AND WILL NOTIFY CLINICAL COMBINATION MAN AND PHYSICIAN/PROVIDER WITH ANY CHANGE IN CONDITION. [code = SKILLED NURSE WILL MAINTAIN SITUATIONAL AWARENESS FOR SAFETY AND WILL NOTIFY CLINICAL COMBINATION MAN AND PHYSICIAN/PROVIDER WITH ANY CHANGE IN CONDITION.] [...] CLEAN AND NEATLY DRESSED IN KITCHEN WITH MAINTENANCE PORTER PRESENT D/T MOUSE PROBLEM. HER HOME IS [...] WITH HER MED PP PER HER MED POOL COORDINATOR AND DENIES ANY ADVERSE EFFECTS.</paragraph> Encounters Start Date/Time End Date/Time Encounter Type Admission Type Attending Clinicians Care Facility Care Department Encounter ID Discharge Date Discharge Status Discharge Condition Discharge Reason Percent Goals Met 2025-01-19 00:00:00 2025-03-19 00:00:00 Outpatient RECERTIFIC ATSNEHAL VELA [facility] [id number] 76.00
--- OUTSIDE RECORDS SUMMARY | 2025-03-18 19:00 | XMS_ITS | Clinical Summary ---
Author Organization Unknown Care Team Providers Care Freight Air Brake Fitter Name Role Phone YAIMA RASMUSSEN, KAVITA BEST Unavailable Unamirella SPEARS RN, SNEHAL Unavailable Unavailable Payers Payer Name Policy Type Policy Number Effective Date Expira tion Date [employer] MEDICARE ADVANTAGE FFS [id number] MEDICARE - [place] PDGM [id number] Problems Condition Name Condition Details Condition Category [...] 06-25 00:00: 00 12-31 23:59 :00 No [id number] 2 puff DIRECTED 2 puff DIRECTED (route: inhalation ) Med Classific ation: Respirato ry Therapy Agents bupropion HCl XL 300 mg 24 hr tablet, extended release 06-25 00:00: 00 12-31 23:59 :00 No [id number] 1 tablet DAILY 1 tablet DAILY (route: oral) Med Classific ation: Central Nervous System Agents carbidopa 25 mg-levodopa 100 mg tablet 417 00:00: 00 12-31 23:59 :00 No [id number] 1.5 tablet 4 TIMES DAILY 1.5 tablet 4 TIMES DAILY (route: oral) Med Classific ation: Central Nervous System Agents famotidine 40 mg tablet 417 00:00: 00 09-01 23:59 :00 No [id number] 1 tablet DAILY 1 tablet DAILY (route: oral) Med Classific ation: Gastroint estinal Therapy Agents paroxetine 40 mg tablet 17 00:00: 00 12-31 23:59 :00 No [id number] 1 tablet DAILY 1 tablet DAILY (route: oral) Med Classific ation: Central Nervous System Agents trazodone 50 mg tablet 06-25 00:00: 00 09-01 23:59 :00 No [id number] Per instruc tions BEDTIME Per instructio ns BEDTIME (route: oral) Med Classific ation: Central Nervous System Agents gabapentin 100 mg capsule -24 00:00: 00 09-01 23:59 :00 No [id number] pain Per instruc tions BEDTIME Per instructio ns BEDTIME (route: oral) Med Classific ation: Central Nervous System Agents omeprazole 40 mg capsule,del ayed release -24 00:00: 00 05-20 23:59 :00 No [id number] 1 capsule DAILY 1 capsule DAILY (route: oral) Med Classific ation: Gastroint estinal Therapy Agents gabapentin 100 mg capsule 2023-03 0- 00:00: 00 09-01 23:59 :00 No [id number] Per instruc tions 2 TIMES DAILY Per instructio ns 2 TIMES DAILY (route: oral) Med Classific ation: Central Nervous System Agents famotidine 40 mg tablet 3-16 00:00: 00 12-31 23:59 :00 No [id number] 1 tablet EVERY AM 1 tablet EVERY AM (route: oral) Med Classific ation: Gastroint estinal Therapy Agents Tylenol Arthritis Pain 650 mg tablet,exte nded release 3-21 00:00: 00 12-31 23:59 :00 No [id number] 1 tablet EVERY 8 HOURS 1 tablet EVERY 8 HOURS (route: oral) Med Classific ation: Analgesic , Anti-infl ammatory or Antipyret ic cyclobenzap rine 10 mg tablet 08-05 00:00: 00 09-01 23:59 :00 No [id number] 1 tablet BEDTIME 1 tablet BEDTIME (route: oral) Med Classific ation: Locomotor System meloxicam 15 mg tablet 08-05 00:00: 00 09-01 23:59 :00 No [id number] 1 tablet DAILY 1 tablet DAILY (route: oral) Med Classific ation: Analgesic , Anti-infl ammatory or Antipyret ic cyclobenzap rine 10 mg tablet 09-01 00:00: 00 12-31 23:59 :00 No [id number] 1 tablet BEDTIME 1 tablet BEDTIME (route: oral) Med Classific ation: Locomotor System meloxicam 15 mg tablet 09-01 00:00: 00 12-31 23:59 :00 No [id number] 1 tablet EVERY AM 1 tablet EVERY AM (route: oral) Med Classific ation: Analgesic , Anti-infl ammatory or Antipyret ic trazodone 50 mg tablet 09-01 00:00: 00 12-31 23:59 :00 No [id number] Per instruc tions BEDTIME Per instructio ns BEDTIME (route: oral) Med Classific ation: Central Nervous System Agents erythromyci n 5 mg/gram (0.5 %) eye ointment 2024-03 00:00: 00 Yes [id number] Per instruc tions 4 TIMES DAILY Per instructio ns 4 TIMES DAILY (route: ophthalmic (eye)) Med Classific ation: Ophthalmi c Agents albuterol sulfate HFA 90 mcg/actuati on aerosol inhaler 2024-03 00:00: 00 Yes [id number] 2 puff EVERY 6 HOURS 2 puff EVERY 6 HOURS (route: inhalation ) Med Classific ation: Respirato ry Therapy Agents bupropion HCl XL 300 mg 24 hr tablet, extended release 2024-03 00:00: 00 Yes [id number] 1 tablet EVERY AM 1 tablet EVERY AM (route: oral) Med Classific ation: Central Nervous System Agents carbidopa 25 mg-levodopa 100 mg disintegrat ing tablet 2024-03 00:00: 00 Yes [id number] 1.5 tablet NOON 1.5 tablet NOON (route: oral) Med Classific ation: Central Nervous System Agents carbidopa 25 mg-levodopa 100 mg tablet 2024-03 00:00: 00 Yes [id number] 1.5 tablet EVERY AM 1.5 tablet EVERY AM (route: oral) Med Classific ation: Central Nervous System Agents carbidopa 25 mg-levodopa 100 mg tablet 2024-03 00:00: 00 Yes [id number] 1.5 tablet EVERY PM 1.5 tablet EVERY PM (route: oral) Med Classific ation: Central Nervous System Agents carbidopa 25 mg-levodopa 100 mg tablet 2024-03 00:00: 00 Yes [id number] 1.5 tablet BEDTIME 1.5 tablet BEDTIME (route: oral) Med Classific ation: Central Nervous System Agents cyclobenzap rine 10 mg tablet 2024-03 00:00: 00 Yes [id number] 1 tablet BEDTIME 1 tablet BEDTIME (route: oral) Med Classific ation: Locomotor System famotidine 40 mg tablet 2024-03 00:00: 00 Yes [id number] 1 tablet EVERY AM 1 tablet EVERY AM (route: oral) Med Classific ation: Gastroint estinal Therapy Agents meloxicam 15 mg tablet 2024-03 00:00: 00 Yes [id number] 1 tablet EVERY AM 1 tablet EVERY AM (route: oral) Med Classific ation: Analgesic , Anti-infl ammatory or Antipyret ic paroxetine 40 mg tablet 2024-03 00:00: 00 Yes [id number] 1 tablet EVERY AM 1 tablet EVERY AM (route: oral) Med Classific ation: Central Nervous System Agents trazodone 50 mg tablet 2024-03 00:00: 00 Yes [id number] 1 tablet BEDTIME 1 tablet BEDTIME (route: oral) Med Classific ation: Central Nervous System Agents Tylenol Arthritis Pain 650 mg tablet,exte nded release 2024-03 0-23 00:00: 00 Yes [id number] 1 tablet EVERY 8 HOURS 1 tablet EVERY 8 HOURS (route: oral) Med Classific ation: Analgesic , Anti-infl ammatory or Antipyret ic Farxiga 5 mg tablet 2024-03 1-03 00:00: 00 Yes [id number] 1 tablet EVERY AM 1 tablet EVERY [...] AWARENESS FOR SAFETY AND WILL NOTIFY CLINICAL ENERGY SCHEDULER AND PHYSICIAN/PROVIDER WITH ANY CHANGE IN CONDITION. [code = SKILLED NURSE WILL MAINTAIN SITUATIONAL AWARENESS FOR SAFETY AND WILL NOTIFY CLINICAL ENERGY SCHEDULER AND PHYSICIAN/PROVIDER WITH ANY CHANGE IN CONDITION.] [...] CLEAN AND NEATLY DRESSED IN KITCHEN WITH C WINFORMS DEVELOPER PRESENT D/T MOUSE PROBLEM. HER HOME IS [...] WITH HER MED PP PER HER MED CLERICAL TRANSCRIBER AND DENIES ANY ADVERSE EFFECTS.</paragraph> Encounters Start Date/Time End Date/Time Encounter Type Admission Type Attending Clinicians Care Facility Care Department Encounter ID Discharge Date Discharge Status Discharge Condition Discharge Reason Percent Goals Met 2025-01-19 00:00:00 2025-03-19 00:00:00 Outpatient RECERTIFIC ATSNEHAL VELA [facility] [id number] 76.00
--- OUTSIDE RECORDS SUMMARY | 2025-03-18 19:00 | XMS_ITS | Clinical Summary ---
Author Organization Unknown Care Team Providers Care Whip Sawyer Name Role Phone YAIMA RASMUSSEN, KAVITA BEST Unavailable Unamirella SPEARS RN, SNEHAL Unavailable Unavailable Payers Payer Name Policy Type Policy Number Effective Date Expira tion Date [employer] MEDICARE ADVANTAGE FFS [id number] MEDICARE - [place] PDGM [id number] Problems Condition Name Condition Details Condition Category [...] 06-25 00:00: 00 12-31 23:59 :00 No [id number] 2 puff DIRECTED 2 puff DIRECTED (route: inhalation ) Med Classific ation: Respirato ry Therapy Agents bupropion HCl XL 300 mg 24 hr tablet, extended release 06-25 00:00: 00 12-31 23:59 :00 No [id number] 1 tablet DAILY 1 tablet DAILY (route: oral) Med Classific ation: Central Nervous System Agents carbidopa 25 mg-levodopa 100 mg tablet 417 00:00: 00 12-31 23:59 :00 No [id number] 1.5 tablet 4 TIMES DAILY 1.5 tablet 4 TIMES DAILY (route: oral) Med Classific ation: Central Nervous System Agents famotidine 40 mg tablet 417 00:00: 00 09-01 23:59 :00 No [id number] 1 tablet DAILY 1 tablet DAILY (route: oral) Med Classific ation: Gastroint estinal Therapy Agents paroxetine 40 mg tablet 17 00:00: 00 12-31 23:59 :00 No [id number] 1 tablet DAILY 1 tablet DAILY (route: oral) Med Classific ation: Central Nervous System Agents trazodone 50 mg tablet 06-25 00:00: 00 09-01 23:59 :00 No [id number] Per instruc tions BEDTIME Per instructio ns BEDTIME (route: oral) Med Classific ation: Central Nervous System Agents gabapentin 100 mg capsule -24 00:00: 00 09-01 23:59 :00 No [id number] pain Per instruc tions BEDTIME Per instructio ns BEDTIME (route: oral) Med Classific ation: Central Nervous System Agents omeprazole 40 mg capsule,del ayed release -24 00:00: 00 05-20 23:59 :00 No [id number] 1 capsule DAILY 1 capsule DAILY (route: oral) Med Classific ation: Gastroint estinal Therapy Agents gabapentin 100 mg capsule 2023-03 0- 00:00: 00 09-01 23:59 :00 No [id number] Per instruc tions 2 TIMES DAILY Per instructio ns 2 TIMES DAILY (route: oral) Med Classific ation: Central Nervous System Agents famotidine 40 mg tablet 3-16 00:00: 00 12-31 23:59 :00 No [id number] 1 tablet EVERY AM 1 tablet EVERY AM (route: oral) Med Classific ation: Gastroint estinal Therapy Agents Tylenol Arthritis Pain 650 mg tablet,exte nded release 3-21 00:00: 00 12-31 23:59 :00 No [id number] 1 tablet EVERY 8 HOURS 1 tablet EVERY 8 HOURS (route: oral) Med Classific ation: Analgesic , Anti-infl ammatory or Antipyret ic cyclobenzap rine 10 mg tablet 08-05 00:00: 00 09-01 23:59 :00 No [id number] 1 tablet BEDTIME 1 tablet BEDTIME (route: oral) Med Classific ation: Locomotor System meloxicam 15 mg tablet 08-05 00:00: 00 09-01 23:59 :00 No [id number] 1 tablet DAILY 1 tablet DAILY (route: oral) Med Classific ation: Analgesic , Anti-infl ammatory or Antipyret ic cyclobenzap rine 10 mg tablet 09-01 00:00: 00 12-31 23:59 :00 No [id number] 1 tablet BEDTIME 1 tablet BEDTIME (route: oral) Med Classific ation: Locomotor System meloxicam 15 mg tablet 09-01 00:00: 00 12-31 23:59 :00 No [id number] 1 tablet EVERY AM 1 tablet EVERY AM (route: oral) Med Classific ation: Analgesic , Anti-infl ammatory or Antipyret ic trazodone 50 mg tablet 09-01 00:00: 00 12-31 23:59 :00 No [id number] Per instruc tions BEDTIME Per instructio ns BEDTIME (route: oral) Med Classific ation: Central Nervous System Agents erythromyci n 5 mg/gram (0.5 %) eye ointment 2024-03 00:00: 00 Yes [id number] Per instruc tions 4 TIMES DAILY Per instructio ns 4 TIMES DAILY (route: ophthalmic (eye)) Med Classific ation: Ophthalmi c Agents albuterol sulfate HFA 90 mcg/actuati on aerosol inhaler 2024-03 00:00: 00 Yes [id number] 2 puff EVERY 6 HOURS 2 puff EVERY 6 HOURS (route: inhalation ) Med Classific ation: Respirato ry Therapy Agents bupropion HCl XL 300 mg 24 hr tablet, extended release 2024-03 00:00: 00 Yes [id number] 1 tablet EVERY AM 1 tablet EVERY AM (route: oral) Med Classific ation: Central Nervous System Agents carbidopa 25 mg-levodopa 100 mg disintegrat ing tablet 2024-03 00:00: 00 Yes [id number] 1.5 tablet NOON 1.5 tablet NOON (route: oral) Med Classific ation: Central Nervous System Agents carbidopa 25 mg-levodopa 100 mg tablet 2024-03 00:00: 00 Yes [id number] 1.5 tablet EVERY AM 1.5 tablet EVERY AM (route: oral) Med Classific ation: Central Nervous System Agents carbidopa 25 mg-levodopa 100 mg tablet 2024-03 00:00: 00 Yes [id number] 1.5 tablet EVERY PM 1.5 tablet EVERY PM (route: oral) Med Classific ation: Central Nervous System Agents carbidopa 25 mg-levodopa 100 mg tablet 2024-03 00:00: 00 Yes [id number] 1.5 tablet BEDTIME 1.5 tablet BEDTIME (route: oral) Med Classific ation: Central Nervous System Agents cyclobenzap rine 10 mg tablet 2024-03 00:00: 00 Yes [id number] 1 tablet BEDTIME 1 tablet BEDTIME (route: oral) Med Classific ation: Locomotor System famotidine 40 mg tablet 2024-03 00:00: 00 Yes [id number] 1 tablet EVERY AM 1 tablet EVERY AM (route: oral) Med Classific ation: Gastroint estinal Therapy Agents meloxicam 15 mg tablet 2024-03 00:00: 00 Yes [id number] 1 tablet EVERY AM 1 tablet EVERY AM (route: oral) Med Classific ation: Analgesic , Anti-infl ammatory or Antipyret ic paroxetine 40 mg tablet 2024-03 00:00: 00 Yes [id number] 1 tablet EVERY AM 1 tablet EVERY AM (route: oral) Med Classific ation: Central Nervous System Agents trazodone 50 mg tablet 2024-03 00:00: 00 Yes [id number] 1 tablet BEDTIME 1 tablet BEDTIME (route: oral) Med Classific ation: Central Nervous System Agents Tylenol Arthritis Pain 650 mg tablet,exte nded release 2024-03 0-23 00:00: 00 Yes [id number] 1 tablet EVERY 8 HOURS 1 tablet EVERY 8 HOURS (route: oral) Med Classific ation: Analgesic , Anti-infl ammatory or Antipyret ic Farxiga 5 mg tablet 2024-03 1-03 00:00: 00 Yes [id number] 1 tablet EVERY AM 1 tablet EVERY [...] AWARENESS FOR SAFETY AND WILL NOTIFY CLINICAL WATER SYSTEM OPERATOR AND PHYSICIAN/PROVIDER WITH ANY CHANGE IN CONDITION. [code = SKILLED NURSE WILL MAINTAIN SITUATIONAL AWARENESS FOR SAFETY AND WILL NOTIFY CLINICAL WATER SYSTEM OPERATOR AND PHYSICIAN/PROVIDER WITH ANY CHANGE IN [...] CLEAN AND NEATLY DRESSED IN KITCHEN WITH CAR ESCORT PRESENT D/T MOUSE PROBLEM. HER HOME IS [...] WITH HER MED PP PER HER MED EPIC KALEIDOSCOPE ANALYST AND DENIES ANY ADVERSE EFFECTS.</paragraph> Encounters Start Date/Time End Date/Time Encounter Type Admission Type Attending Clinicians Care Facility Care Department Encounter ID Discharge Date Discharge Status Discharge Condition Discharge Reason Percent Goals Met 2025-01-19 00:00:00 2025-03-19 00:00:00 Outpatient RECERTIFIC ATSNEHAL [facility] [id number] 76.00
--- OUTSIDE RECORDS SUMMARY | 2025-03-18 19:00 | XMS_ITS | Clinical Summary ---
Author Organization Unknown Care Team Providers Care Staff Development Coordinator Name Role Phone YAIMA RASMUSSEN, KAVITA BEST Unavailable Unamirella SPEARS RN, SNEHAL Unavailable Unavailable Payers Payer Name Policy Type Policy Number Effective Date Expira tion Date [employer] MEDICARE ADVANTAGE FFS [id number] MEDICARE - [place] - PDGM [id number] Problems Condition Name Condition Details Condition Category [...] 06-25 00:00: 00 12-31 23:59 :00 No [id number] 2 puff DIRECTED 2 puff DIRECTED (route: inhalation ) Med Classific ation: Respirato ry Therapy Agents bupropion HCl XL 300 mg 24 hr tablet, extended release 06-25 00:00: 00 12-31 23:59 :00 No [id number] 1 tablet DAILY 1 tablet DAILY (route: oral) Med Classific ation: Central Nervous System Agents carbidopa 25 mg-levodopa 100 mg tablet 417 00:00: 00 12-31 23:59 :00 No [id number] 1.5 tablet 4 TIMES DAILY 1.5 tablet 4 TIMES DAILY (route: oral) Med Classific ation: Central Nervous System Agents famotidine 40 mg tablet 417 00:00: 00 09-01 23:59 :00 No [id number] 1 tablet DAILY 1 tablet DAILY (route: oral) Med Classific ation: Gastroint estinal Therapy Agents paroxetine 40 mg tablet 17 00:00: 00 12-31 23:59 :00 No [id number] 1 tablet DAILY 1 tablet DAILY (route: oral) Med Classific ation: Central Nervous System Agents trazodone 50 mg tablet 06-25 00:00: 00 09-01 23:59 :00 No [id number] Per instruc tions BEDTIME Per instructio ns BEDTIME (route: oral) Med Classific ation: Central Nervous System Agents gabapentin 100 mg capsule -24 00:00: 00 09-01 23:59 :00 No [id number] pain Per instruc tions BEDTIME Per instructio ns BEDTIME (route: oral) Med Classific ation: Central Nervous System Agents omeprazole 40 mg capsule,del ayed release -24 00:00: 00 05-20 23:59 :00 No [id number] 1 capsule DAILY 1 capsule DAILY (route: oral) Med Classific ation: Gastroint estinal Therapy Agents gabapentin 100 mg capsule 2023-03 0- 00:00: 00 09-01 23:59 :00 No [id number] Per instruc tions 2 TIMES DAILY Per instructio ns 2 TIMES DAILY (route: oral) Med Classific ation: Central Nervous System Agents famotidine 40 mg tablet 3-16 00:00: 00 12-31 23:59 :00 No [id number] 1 tablet EVERY AM 1 tablet EVERY AM (route: oral) Med Classific ation: Gastroint estinal Therapy Agents Tylenol Arthritis Pain 650 mg tablet,exte nded release 3-21 00:00: 00 12-31 23:59 :00 No [id number] 1 tablet EVERY 8 HOURS 1 tablet EVERY 8 HOURS (route: oral) Med Classific ation: Analgesic , Anti-infl ammatory or Antipyret ic cyclobenzap rine 10 mg tablet 08-05 00:00: 00 09-01 23:59 :00 No [id number] 1 tablet BEDTIME 1 tablet BEDTIME (route: oral) Med Classific ation: Locomotor System meloxicam 15 mg tablet 08-05 00:00: 00 09-01 23:59 :00 No [id number] 1 tablet DAILY 1 tablet DAILY (route: oral) Med Classific ation: Analgesic , Anti-infl ammatory or Antipyret ic cyclobenzap rine 10 mg tablet 09-01 00:00: 00 12-31 23:59 :00 No [id number] 1 tablet BEDTIME 1 tablet BEDTIME (route: oral) Med Classific ation: Locomotor System meloxicam 15 mg tablet 09-01 00:00: 00 12-31 23:59 :00 No [id number] 1 tablet EVERY AM 1 tablet EVERY AM (route: oral) Med Classific ation: Analgesic , Anti-infl ammatory or Antipyret ic trazodone 50 mg tablet 09-01 00:00: 00 12-31 23:59 :00 No [id number] Per instruc tions BEDTIME Per instructio ns BEDTIME (route: oral) Med Classific ation: Central Nervous System Agents erythromyci n 5 mg/gram (0.5 %) eye ointment 2024-03 00:00: 00 Yes [id number] Per instruc tions 4 TIMES DAILY Per instructio ns 4 TIMES DAILY (route: ophthalmic (eye)) Med Classific ation: Ophthalmi c Agents albuterol sulfate HFA 90 mcg/actuati on aerosol inhaler 2024-03 00:00: 00 Yes [id number] 2 puff EVERY 6 HOURS 2 puff EVERY 6 HOURS (route: inhalation ) Med Classific ation: Respirato ry Therapy Agents bupropion HCl XL 300 mg 24 hr tablet, extended release 2024-03 00:00: 00 Yes [id number] 1 tablet EVERY AM 1 tablet EVERY AM (route: oral) Med Classific ation: Central Nervous System Agents carbidopa 25 mg-levodopa 100 mg disintegrat ing tablet 2024-03 00:00: 00 Yes [id number] 1.5 tablet NOON 1.5 tablet NOON (route: oral) Med Classific ation: Central Nervous System Agents carbidopa 25 mg-levodopa 100 mg tablet 2024-03 00:00: 00 Yes [id number] 1.5 tablet EVERY AM 1.5 tablet EVERY AM (route: oral) Med Classific ation: Central Nervous System Agents carbidopa 25 mg-levodopa 100 mg tablet 2024-03 00:00: 00 Yes [id number] 1.5 tablet EVERY PM 1.5 tablet EVERY PM (route: oral) Med Classific ation: Central Nervous System Agents carbidopa 25 mg-levodopa 100 mg tablet 2024-03 00:00: 00 Yes [id number] 1.5 tablet BEDTIME 1.5 tablet BEDTIME (route: oral) Med Classific ation: Central Nervous System Agents cyclobenzap rine 10 mg tablet 2024-03 00:00: 00 Yes [id number] 1 tablet BEDTIME 1 tablet BEDTIME (route: oral) Med Classific ation: Locomotor System famotidine 40 mg tablet 2024-03 00:00: 00 Yes [id number] 1 tablet EVERY AM 1 tablet EVERY AM (route: oral) Med Classific ation: Gastroint estinal Therapy Agents meloxicam 15 mg tablet 2024-03 00:00: 00 Yes [id number] 1 tablet EVERY AM 1 tablet EVERY AM (route: oral) Med Classific ation: Analgesic , Anti-infl ammatory or Antipyret ic paroxetine 40 mg tablet 2024-03 00:00: 00 Yes [id number] 1 tablet EVERY AM 1 tablet EVERY AM (route: oral) Med Classific ation: Central Nervous System Agents trazodone 50 mg tablet 2024-03 00:00: 00 Yes [id number] 1 tablet BEDTIME 1 tablet BEDTIME (route: oral) Med Classific ation: Central Nervous System Agents Tylenol Arthritis Pain 650 mg tablet,exte nded release 2024-03 0-23 00:00: 00 Yes [id number] 1 tablet EVERY 8 HOURS 1 tablet EVERY 8 HOURS (route: oral) Med Classific ation: Analgesic , Anti-infl ammatory or Antipyret ic Farxiga 5 mg tablet 2024-03 1-03 00:00: 00 Yes [id number] 1 tablet EVERY AM 1 tablet EVERY [...] AWARENESS FOR SAFETY AND WILL NOTIFY CLINICAL SAP GATHERER AND PHYSICIAN/PROVIDER WITH ANY CHANGE IN CONDITION. [code = SKILLED NURSE WILL MAINTAIN SITUATIONAL AWARENESS FOR SAFETY AND WILL NOTIFY CLINICAL SAP GATHERER AND PHYSICIAN/PROVIDER WITH ANY CHANGE IN CONDITION.] [...] CLEAN AND NEATLY DRESSED IN KITCHEN WITH HAZARD WASTE HANDLER PRESENT D/T MOUSE PROBLEM. 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
--- OUTSIDE RECORDS SUMMARY | 2025-03-18 19:00 | XMS_ITS | Clinical Summary ---
Author Organization Unknown Care Team Providers Care Laminating Machine Operator Name Role Phone YAIMA RASMUSSEN, KAVITA BEST Unavailable Unamirella SPEARS RN, SNEHAL Unavailable Unavailable Payers Payer Name Policy Type Policy Number Effective Date Expira tion Date [employer] MEDICARE ADVANTAGE FFS [id number] MEDICARE - [place] PDGM [id number] Problems Condition Name Condition Details Condition Category [...] 06-25 00:00: 00 12-31 23:59 :00 No [id number] 2 puff DIRECTED 2 puff DIRECTED (route: inhalation ) Med Classific ation: Respirato ry Therapy Agents bupropion HCl XL 300 mg 24 hr tablet, extended release 06-25 00:00: 00 12-31 23:59 :00 No [id number] 1 tablet DAILY 1 tablet DAILY (route: oral) Med Classific ation: Central Nervous System Agents carbidopa 25 mg-levodopa 100 mg tablet 417 00:00: 00 12-31 23:59 :00 No [id number] 1.5 tablet 4 TIMES DAILY 1.5 tablet 4 TIMES DAILY (route: oral) Med Classific ation: Central Nervous System Agents famotidine 40 mg tablet 417 00:00: 00 09-01 23:59 :00 No [id number] 1 tablet DAILY 1 tablet DAILY (route: oral) Med Classific ation: Gastroint estinal Therapy Agents paroxetine 40 mg tablet 17 00:00: 00 12-31 23:59 :00 No [id number] 1 tablet DAILY 1 tablet DAILY (route: oral) Med Classific ation: Central Nervous System Agents trazodone 50 mg tablet 06-25 00:00: 00 09-01 23:59 :00 No [id number] Per instruc tions BEDTIME Per instructio ns BEDTIME (route: oral) Med Classific ation: Central Nervous System Agents gabapentin 100 mg capsule -24 00:00: 00 09-01 23:59 :00 No [id number] pain Per instruc tions BEDTIME Per instructio ns BEDTIME (route: oral) Med Classific ation: Central Nervous System Agents omeprazole 40 mg capsule,del ayed release -24 00:00: 00 05-20 23:59 :00 No [id number] 1 capsule DAILY 1 capsule DAILY (route: oral) Med Classific ation: Gastroint estinal Therapy Agents gabapentin 100 mg capsule 2023-03 0- 00:00: 00 09-01 23:59 :00 No [id number] Per instruc tions 2 TIMES DAILY Per instructio ns 2 TIMES DAILY (route: oral) Med Classific ation: Central Nervous System Agents famotidine 40 mg tablet 3-16 00:00: 00 12-31 23:59 :00 No [id number] 1 tablet EVERY AM 1 tablet EVERY AM (route: oral) Med Classific ation: Gastroint estinal Therapy Agents Tylenol Arthritis Pain 650 mg tablet,exte nded release 3-21 00:00: 00 12-31 23:59 :00 No [id number] 1 tablet EVERY 8 HOURS 1 tablet EVERY 8 HOURS (route: oral) Med Classific ation: Analgesic , Anti-infl ammatory or Antipyret ic cyclobenzap rine 10 mg tablet 08-05 00:00: 00 09-01 23:59 :00 No [id number] 1 tablet BEDTIME 1 tablet BEDTIME (route: oral) Med Classific ation: Locomotor System meloxicam 15 mg tablet 08-05 00:00: 00 09-01 23:59 :00 No [id number] 1 tablet DAILY 1 tablet DAILY (route: oral) Med Classific ation: Analgesic , Anti-infl ammatory or Antipyret ic cyclobenzap rine 10 mg tablet 09-01 00:00: 00 12-31 23:59 :00 No [id number] 1 tablet BEDTIME 1 tablet BEDTIME (route: oral) Med Classific ation: Locomotor System meloxicam 15 mg tablet 09-01 00:00: 00 12-31 23:59 :00 No [id number] 1 tablet EVERY AM 1 tablet EVERY AM (route: oral) Med Classific ation: Analgesic , Anti-infl ammatory or Antipyret ic trazodone 50 mg tablet 09-01 00:00: 00 12-31 23:59 :00 No [id number] Per instruc tions BEDTIME Per instructio ns BEDTIME (route: oral) Med Classific ation: Central Nervous System Agents erythromyci n 5 mg/gram (0.5 %) eye ointment 2024-03 00:00: 00 Yes [id number] Per instruc tions 4 TIMES DAILY Per instructio ns 4 TIMES DAILY (route: ophthalmic (eye)) Med Classific ation: Ophthalmi c Agents albuterol sulfate HFA 90 mcg/actuati on aerosol inhaler 2024-03 00:00: 00 Yes [id number] 2 puff EVERY 6 HOURS 2 puff EVERY 6 HOURS (route: inhalation ) Med Classific ation: Respirato ry Therapy Agents bupropion HCl XL 300 mg 24 hr tablet, extended release 2024-03 00:00: 00 Yes [id number] 1 tablet EVERY AM 1 tablet EVERY AM (route: oral) Med Classific ation: Central Nervous System Agents carbidopa 25 mg-levodopa 100 mg disintegrat ing tablet 2024-03 00:00: 00 Yes [id number] 1.5 tablet NOON 1.5 tablet NOON (route: oral) Med Classific ation: Central Nervous System Agents carbidopa 25 mg-levodopa 100 mg tablet 2024-03 00:00: 00 Yes [id number] 1.5 tablet EVERY AM 1.5 tablet EVERY AM (route: oral) Med Classific ation: Central Nervous System Agents carbidopa 25 mg-levodopa 100 mg tablet 2024-03 00:00: 00 Yes [id number] 1.5 tablet EVERY PM 1.5 tablet EVERY PM (route: oral) Med Classific ation: Central Nervous System Agents carbidopa 25 mg-levodopa 100 mg tablet 2024-03 00:00: 00 Yes [id number] 1.5 tablet BEDTIME 1.5 tablet BEDTIME (route: oral) Med Classific ation: Central Nervous System Agents cyclobenzap rine 10 mg tablet 2024-03 00:00: 00 Yes [id number] 1 tablet BEDTIME 1 tablet BEDTIME (route: oral) Med Classific ation: Locomotor System famotidine 40 mg tablet 2024-03 00:00: 00 Yes [id number] 1 tablet EVERY AM 1 tablet EVERY AM (route: oral) Med Classific ation: Gastroint estinal Therapy Agents meloxicam 15 mg tablet 2024-03 00:00: 00 Yes [id number] 1 tablet EVERY AM 1 tablet EVERY AM (route: oral) Med Classific ation: Analgesic , Anti-infl ammatory or Antipyret ic paroxetine 40 mg tablet 2024-03 00:00: 00 Yes [id number] 1 tablet EVERY AM 1 tablet EVERY AM (route: oral) Med Classific ation: Central Nervous System Agents trazodone 50 mg tablet 2024-03 00:00: 00 Yes [id number] 1 tablet BEDTIME 1 tablet BEDTIME (route: oral) Med Classific ation: Central Nervous System Agents Tylenol Arthritis Pain 650 mg tablet,exte nded release 2024-03 0-23 00:00: 00 Yes [id number] 1 tablet EVERY 8 HOURS 1 tablet EVERY 8 HOURS (route: oral) Med Classific ation: Analgesic , Anti-infl ammatory or Antipyret ic Farxiga 5 mg tablet 2024-03 1-03 00:00: 00 Yes [id number] 1 tablet EVERY AM 1 tablet EVERY [...] AWARENESS FOR SAFETY AND WILL NOTIFY CLINICAL EVENT SALES MANAGER AND PHYSICIAN/PROVIDER WITH ANY CHANGE IN CONDITION. [code = SKILLED NURSE WILL MAINTAIN SITUATIONAL AWARENESS FOR SAFETY AND WILL NOTIFY CLINICAL EVENT SALES MANAGER AND PHYSICIAN/PROVIDER WITH ANY CHANGE [...] CLEAN AND NEATLY DRESSED IN KITCHEN WITH COMPENSATION/BENEFITS SPECIALIST PRESENT D/T MOUSE PROBLEM. 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
--- OUTSIDE RECORDS SUMMARY | 2025-03-18 19:00 | XMS_ITS | Clinical Summary ---
Author Organization Unknown Care Team Providers Care Services Executive Name Role Phone YAIMA RASMUSSEN, KAVITA BEST Unavailable Unamirella SPEARS RN, SNEHAL Unavailable Unavailable Payers Payer Name Policy Type Policy Number Effective Date Expira tion Date [employer] MEDICARE ADVANTAGE FFS [id number] MEDICARE - [place] PDGM [id number] Problems Condition Name Condition Details Condition Category [...] 06-25 00:00: 00 12-31 23:59 :00 No [id number] 2 puff DIRECTED 2 puff DIRECTED (route: inhalation ) Med Classific ation: Respirato ry Therapy Agents bupropion HCl XL 300 mg 24 hr tablet, extended release 06-25 00:00: 00 12-31 23:59 :00 No [id number] 1 tablet DAILY 1 tablet DAILY (route: oral) Med Classific ation: Central Nervous System Agents carbidopa 25 mg-levodopa 100 mg tablet 417 00:00: 00 12-31 23:59 :00 No [id number] 1.5 tablet 4 TIMES DAILY 1.5 tablet 4 TIMES DAILY (route: oral) Med Classific ation: Central Nervous System Agents famotidine 40 mg tablet 417 00:00: 00 09-01 23:59 :00 No [id number] 1 tablet DAILY 1 tablet DAILY (route: oral) Med Classific ation: Gastroint estinal Therapy Agents paroxetine 40 mg tablet 17 00:00: 00 12-31 23:59 :00 No [id number] 1 tablet DAILY 1 tablet DAILY (route: oral) Med Classific ation: Central Nervous System Agents trazodone 50 mg tablet 06-25 00:00: 00 09-01 23:59 :00 No [id number] Per instruc tions BEDTIME Per instructio ns BEDTIME (route: oral) Med Classific ation: Central Nervous System Agents gabapentin 100 mg capsule -24 00:00: 00 09-01 23:59 :00 No [id number] pain Per instruc tions BEDTIME Per instructio ns BEDTIME (route: oral) Med Classific ation: Central Nervous System Agents omeprazole 40 mg capsule,del ayed release -24 00:00: 00 05-20 23:59 :00 No [id number] 1 capsule DAILY 1 capsule DAILY (route: oral) Med Classific ation: Gastroint estinal Therapy Agents gabapentin 100 mg capsule 2023-03 0- 00:00: 00 09-01 23:59 :00 No [id number] Per instruc tions 2 TIMES DAILY Per instructio ns 2 TIMES DAILY (route: oral) Med Classific ation: Central Nervous System Agents famotidine 40 mg tablet 3-16 00:00: 00 12-31 23:59 :00 No [id number] 1 tablet EVERY AM 1 tablet EVERY AM (route: oral) Med Classific ation: Gastroint estinal Therapy Agents Tylenol Arthritis Pain 650 mg tablet,exte nded release 3-21 00:00: 00 12-31 23:59 :00 No [id number] 1 tablet EVERY 8 HOURS 1 tablet EVERY 8 HOURS (route: oral) Med Classific ation: Analgesic , Anti-infl ammatory or Antipyret ic cyclobenzap rine 10 mg tablet 08-05 00:00: 00 09-01 23:59 :00 No [id number] 1 tablet BEDTIME 1 tablet BEDTIME (route: oral) Med Classific ation: Locomotor System meloxicam 15 mg tablet 08-05 00:00: 00 09-01 23:59 :00 No [id number] 1 tablet DAILY 1 tablet DAILY (route: oral) Med Classific ation: Analgesic , Anti-infl ammatory or Antipyret ic cyclobenzap rine 10 mg tablet 09-01 00:00: 00 12-31 23:59 :00 No [id number] 1 tablet BEDTIME 1 tablet BEDTIME (route: oral) Med Classific ation: Locomotor System meloxicam 15 mg tablet 09-01 00:00: 00 12-31 23:59 :00 No [id number] 1 tablet EVERY AM 1 tablet EVERY AM (route: oral) Med Classific ation: Analgesic , Anti-infl ammatory or Antipyret ic trazodone 50 mg tablet 09-01 00:00: 00 12-31 23:59 :00 No [id number] Per instruc tions BEDTIME Per instructio ns BEDTIME (route: oral) Med Classific ation: Central Nervous System Agents erythromyci n 5 mg/gram (0.5 %) eye ointment 2024-03 00:00: 00 Yes [id number] Per instruc tions 4 TIMES DAILY Per instructio ns 4 TIMES DAILY (route: ophthalmic (eye)) Med Classific ation: Ophthalmi c Agents albuterol sulfate HFA 90 mcg/actuati on aerosol inhaler 2024-03 00:00: 00 Yes [id number] 2 puff EVERY 6 HOURS 2 puff EVERY 6 HOURS (route: inhalation ) Med Classific ation: Respirato ry Therapy Agents bupropion HCl XL 300 mg 24 hr tablet, extended release 2024-03 00:00: 00 Yes [id number] 1 tablet EVERY AM 1 tablet EVERY AM (route: oral) Med Classific ation: Central Nervous System Agents carbidopa 25 mg-levodopa 100 mg disintegrat ing tablet 2024-03 00:00: 00 Yes [id number] 1.5 tablet NOON 1.5 tablet NOON (route: oral) Med Classific ation: Central Nervous System Agents carbidopa 25 mg-levodopa 100 mg tablet 2024-03 00:00: 00 Yes [id number] 1.5 tablet EVERY AM 1.5 tablet EVERY AM (route: oral) Med Classific ation: Central Nervous System Agents carbidopa 25 mg-levodopa 100 mg tablet 2024-03 00:00: 00 Yes [id number] 1.5 tablet EVERY PM 1.5 tablet EVERY PM (route: oral) Med Classific ation: Central Nervous System Agents carbidopa 25 mg-levodopa 100 mg tablet 2024-03 00:00: 00 Yes [id number] 1.5 tablet BEDTIME 1.5 tablet BEDTIME (route: oral) Med Classific ation: Central Nervous System Agents cyclobenzap rine 10 mg tablet 2024-03 00:00: 00 Yes [id number] 1 tablet BEDTIME 1 tablet BEDTIME (route: oral) Med Classific ation: Locomotor System famotidine 40 mg tablet 2024-03 00:00: 00 Yes [id number] 1 tablet EVERY AM 1 tablet EVERY AM (route: oral) Med Classific ation: Gastroint estinal Therapy Agents meloxicam 15 mg tablet 2024-03 00:00: 00 Yes [id number] 1 tablet EVERY AM 1 tablet EVERY AM (route: oral) Med Classific ation: Analgesic , Anti-infl ammatory or Antipyret ic paroxetine 40 mg tablet 2024-03 00:00: 00 Yes [id number] 1 tablet EVERY AM 1 tablet EVERY AM (route: oral) Med Classific ation: Central Nervous System Agents trazodone 50 mg tablet 2024-03 00:00: 00 Yes [id number] 1 tablet BEDTIME 1 tablet BEDTIME (route: oral) Med Classific ation: Central Nervous System Agents Tylenol Arthritis Pain 650 mg tablet,exte nded release 2024-03 0-23 00:00: 00 Yes [id number] 1 tablet EVERY 8 HOURS 1 tablet EVERY 8 HOURS (route: oral) Med Classific ation: Analgesic , Anti-infl ammatory or Antipyret ic Farxiga 5 mg tablet 2024-03 1-03 00:00: 00 Yes [id number] 1 tablet EVERY AM 1 tablet EVERY [...] AWARENESS FOR SAFETY AND WILL NOTIFY CLINICAL FURNITURE POLISHER AND PHYSICIAN/PROVIDER WITH ANY CHANGE IN CONDITION. [code = SKILLED NURSE WILL MAINTAIN SITUATIONAL AWARENESS FOR SAFETY AND WILL NOTIFY CLINICAL FURNITURE POLISHER AND PHYSICIAN/PROVIDER WITH ANY CHANGE IN CONDITION.] [...] CLEAN AND NEATLY DRESSED IN KITCHEN WITH BREAK OFF WORKER PRESENT D/T MOUSE PROBLEM. 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
== END 2025-01-27 14:24 | disposition home or self-care (01) ==
LOC: HO.HMGCX 14:23
PROVIDERS: PCP Internal Medicine; Visit Provider Student in an Organized Health Care Education/Training Program
DX: E21.3 Hyperparathyroidism, unspecified (principal)
CPT/HCPCS: 76536

== ENCOUNTER → 2025-01-27 14:35 | Outpatient (BNV) | payer MEDICARE, MEDICAID, SELFPAY | PROVIDERS: PCP Internal Medicine; Visit Provider Radiology Diagnostic Radiology | DX: E04.2 Nontoxic multinodular goiter (principal) | CPT/HCPCS: 76536 ==

== ENCOUNTER 2025-02-19 13:01 | Outpatient (REF) | payer MEDICARE, MEDICAID, SELFPAY ==
[2025-02-19 16:29] LABS: Anion Gap 13 (12-20); Blood Urea Nitrogen 33 mg/dL (9-16); Calcium 10.4 mg/dL (8.4-10.2); Carbon Dioxide 27 mmol/L (22-29); Chloride 106 mmol/L (96-108); Estimated Glomerular Filt Rate 31; Potassium 4.7 mmol/L (3.3-5.1); Sodium 141 mmol/L (135-145)
[2025-02-19 16:48] LABS: Parathyroid Hormone Intact 133.2 pg/mL (8.7-77.1)
--- OUTSIDE RECORDS SUMMARY | 2025-02-19 18:38 | XMS_ITS | Clinical Summary ---
Author Organization [facility] Address [address] [place] [address] Care Team Providers Care Leaf Sucker Operator Name Role Phone Christi Helms MD Primary Care Provider [phone] Allergies Active Allergy Reactions Criticality Noted Date [...] patient's age to complete this topic Insurance Chain [facility] TPL (AUTO/LIABILITY) MEDICARE PART A & B [facility] Care Teams Leaf Sucker Operator Relationship Specialty Start Date End Date Christi Helms MD [address] [place] [address] PCP - General 08/27/19
--- OUTSIDE RECORDS SUMMARY | 2025-02-19 18:38 | XMS_ITS | Patient Health Record ---
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 Notes: Does not smoke nor use [...] W/U Status Risk Notes Problem Esophageal reflux (231994490) Esophageal reflux (K21.9) Active confirmed Problem Screening for malignant neoplasm of colon (286034921) Encounter for screening for malignant neoplasm of colon (Z12.11) Active confirmed Problem Weight loss (097916230) Weight loss (R63.4) Active confirmed Problem Gastric polyp (38424460) Gastric polyp (K31.7) Active confirmed Problem Gastritis (1894071) Gastritis (K29.70) Active c onfirmed Problem Diarrhea (72980884) Diarrhea, unspecified type (R19.7) Active confirmed Problem Irritable bowel syndrome (65881183) Irritable bowel syndrome with both constipation and diarrhea (K58.2) Active confirmed Problem Diverticulosis of colon (083016529) Diverticulosis of colon (K57.30) Active confirmed Problem Benign neoplasm of stomach (80175818) Gastric adenoma (D13.1) Active confirmed Problem Gastroesophageal reflux disease (896061296) Gastroesophageal reflux disease, unspecified whether esophagitis present (K21.9) Active confirmed Problem Nausea and vomiting (05032016) Nausea and vomiting, unspecified vomiting type (R11.2) [...] End Date A[employer] (No Referral) [address] [address] [place] [address] [id number] HE CRAIG Self - patient is the insured MED[place]ID [place] [address] [place] [phone] [id number] HE CRAIG Self - patient is the [...]
--- OUTSIDE RECORDS SUMMARY | 2025-03-18 19:00 | XMS_ITS | Clinical Summary ---
Author Organization Unknown Care Team Providers Care Trumpet Teacher Name Role Phone YAIMA RASMUSSEN, KAVITA BEST Unavailable Unamirella SPEARS RN, SNEHAL Unavailable Unavailable Payers Payer Name Policy Type Policy Number Effective Date Expira tion Date [employer] MEDICARE ADVANTAGE FFS [id number] MEDICARE - [place] PDGM [id number] Problems Condition Name Condition Details Condition Category [...] 06-25 00:00: 00 12-31 23:59 :00 No [id number] 2 puff DIRECTED 2 puff DIRECTED (route: inhalation ) Med Classific ation: Respirato ry Therapy Agents bupropion HCl XL 300 mg 24 hr tablet, extended release 06-25 00:00: 00 12-31 23:59 :00 No [id number] 1 tablet DAILY 1 tablet DAILY (route: oral) Med Classific ation: Central Nervous System Agents carbidopa 25 mg-levodopa 100 mg tablet 417 00:00: 00 12-31 23:59 :00 No [id number] 1.5 tablet 4 TIMES DAILY 1.5 tablet 4 TIMES DAILY (route: oral) Med Classific ation: Central Nervous System Agents famotidine 40 mg tablet 417 00:00: 00 09-01 23:59 :00 No [id number] 1 tablet DAILY 1 tablet DAILY (route: oral) Med Classific ation: Gastroint estinal Therapy Agents paroxetine 40 mg tablet 17 00:00: 00 12-31 23:59 :00 No [id number] 1 tablet DAILY 1 tablet DAILY (route: oral) Med Classific ation: Central Nervous System Agents trazodone 50 mg tablet 06-25 00:00: 00 09-01 23:59 :00 No [id number] Per instruc tions BEDTIME Per instructio ns BEDTIME (route: oral) Med Classific ation: Central Nervous System Agents gabapentin 100 mg capsule -24 00:00: 00 09-01 23:59 :00 No [id number] pain Per instruc tions BEDTIME Per instructio ns BEDTIME (route: oral) Med Classific ation: Central Nervous System Agents omeprazole 40 mg capsule,del ayed release -24 00:00: 00 05-20 23:59 :00 No [id number] 1 capsule DAILY 1 capsule DAILY (route: oral) Med Classific ation: Gastroint estinal Therapy Agents gabapentin 100 mg capsule 2023-03 0- 00:00: 00 09-01 23:59 :00 No [id number] Per instruc tions 2 TIMES DAILY Per instructio ns 2 TIMES DAILY (route: oral) Med Classific ation: Central Nervous System Agents famotidine 40 mg tablet 3-16 00:00: 00 12-31 23:59 :00 No [id number] 1 tablet EVERY AM 1 tablet EVERY AM (route: oral) Med Classific ation: Gastroint estinal Therapy Agents Tylenol Arthritis Pain 650 mg tablet,exte nded release 3-21 00:00: 00 12-31 23:59 :00 No [id number] 1 tablet EVERY 8 HOURS 1 tablet EVERY 8 HOURS (route: oral) Med Classific ation: Analgesic , Anti-infl ammatory or Antipyret ic cyclobenzap rine 10 mg tablet 08-05 00:00: 00 09-01 23:59 :00 No [id number] 1 tablet BEDTIME 1 tablet BEDTIME (route: oral) Med Classific ation: Locomotor System meloxicam 15 mg tablet 08-05 00:00: 00 09-01 23:59 :00 No [id number] 1 tablet DAILY 1 tablet DAILY (route: oral) Med Classific ation: Analgesic , Anti-infl ammatory or Antipyret ic cyclobenzap rine 10 mg tablet 09-01 00:00: 00 12-31 23:59 :00 No [id number] 1 tablet BEDTIME 1 tablet BEDTIME (route: oral) Med Classific ation: Locomotor System meloxicam 15 mg tablet 09-01 00:00: 00 12-31 23:59 :00 No [id number] 1 tablet EVERY AM 1 tablet EVERY AM (route: oral) Med Classific ation: Analgesic , Anti-infl ammatory or Antipyret ic trazodone 50 mg tablet 09-01 00:00: 00 12-31 23:59 :00 No [id number] Per instruc tions BEDTIME Per instructio ns BEDTIME (route: oral) Med Classific ation: Central Nervous System Agents erythromyci n 5 mg/gram (0.5 %) eye ointment 2024-03 00:00: 00 Yes [id number] Per instruc tions 4 TIMES DAILY Per instructio ns 4 TIMES DAILY (route: ophthalmic (eye)) Med Classific ation: Ophthalmi c Agents albuterol sulfate HFA 90 mcg/actuati on aerosol inhaler 2024-03 00:00: 00 Yes [id number] 2 puff EVERY 6 HOURS 2 puff EVERY 6 HOURS (route: inhalation ) Med Classific ation: Respirato ry Therapy Agents bupropion HCl XL 300 mg 24 hr tablet, extended release 2024-03 00:00: 00 Yes [id number] 1 tablet EVERY AM 1 tablet EVERY AM (route: oral) Med Classific ation: Central Nervous System Agents carbidopa 25 mg-levodopa 100 mg disintegrat ing tablet 2024-03 00:00: 00 Yes [id number] 1.5 tablet NOON 1.5 tablet NOON (route: oral) Med Classific ation: Central Nervous System Agents carbidopa 25 mg-levodopa 100 mg tablet 2024-03 00:00: 00 Yes [id number] 1.5 tablet EVERY AM 1.5 tablet EVERY AM (route: oral) Med Classific ation: Central Nervous System Agents carbidopa 25 mg-levodopa 100 mg tablet 2024-03 00:00: 00 Yes [id number] 1.5 tablet EVERY PM 1.5 tablet EVERY PM (route: oral) Med Classific ation: Central Nervous System Agents carbidopa 25 mg-levodopa 100 mg tablet 2024-03 00:00: 00 Yes [id number] 1.5 tablet BEDTIME 1.5 tablet BEDTIME (route: oral) Med Classific ation: Central Nervous System Agents cyclobenzap rine 10 mg tablet 2024-03 00:00: 00 Yes [id number] 1 tablet BEDTIME 1 tablet BEDTIME (route: oral) Med Classific ation: Locomotor System famotidine 40 mg tablet 2024-03 00:00: 00 Yes [id number] 1 tablet EVERY AM 1 tablet EVERY AM (route: oral) Med Classific ation: Gastroint estinal Therapy Agents meloxicam 15 mg tablet 2024-03 00:00: 00 Yes [id number] 1 tablet EVERY AM 1 tablet EVERY AM (route: oral) Med Classific ation: Analgesic , Anti-infl ammatory or Antipyret ic paroxetine 40 mg tablet 2024-03 00:00: 00 Yes [id number] 1 tablet EVERY AM 1 tablet EVERY AM (route: oral) Med Classific ation: Central Nervous System Agents trazodone 50 mg tablet 2024-03 00:00: 00 Yes [id number] 1 tablet BEDTIME 1 tablet BEDTIME (route: oral) Med Classific ation: Central Nervous System Agents Tylenol Arthritis Pain 650 mg tablet,exte nded release 2024-03 0 00:00: 00 Yes [id number] 1 tablet EVERY 8 HOURS 1 tablet EVERY 8 HOURS (route: oral) Med Classific ation: Analgesic , Anti-infl ammatory or Antipyret ic Farxiga 5 mg tablet 2024-03 00:00: 00 Yes [id number] 1 tablet EVERY AM 1 tablet EVERY AM (route: oral) Med Classific ation: Endocrine Vital Signs Vital Name Observation Time Observation Value Commen ts Pulse 2025-02-15 10:54:00.000 55 /min Pulse 2025-02-08 10:55:00.000 59 /min Pulse 2025-02-05 11:13:00.000 72 /min Pulse 2025-02-03 11:40:00.000 63 /min Pulse 2025-02-01 11:21:00.000 68 /min Pulse 2025-01-29 11:12:00.000 72 /min Pulse 2025-01-25 11:11:00.000 67 /min Pulse 2025-01-22 11:33:00.000 79 /min Pulse 2025-01-20 11:20:00.000 62 /min O2 Saturation (%) 2025-02-15 10:54:00.000 99 % O2 Saturation (%) 2025-02-08 10:55:00.000 96 % O2 Saturation (%) 2025-02-01 11:21:00.000 94 % O2 Saturation (%) 2025-01-25 11:11:00.000 97 % Respirations 2025-02-15 10:54:00.000 20 /min Respirations 2025-02-12 11:13:00.000 20 /min Respirations 2025-02-10 11:29:00.000 20 /min Respirations 2025-02-08 10:55:00.000 20 /min Respirations 2025-02-05 11:13:00.000 20 /min Respirations 2025-02-03 11:40:00.000 20 /min Respirations 2025-02-01 11:21:00.000 20 /min Respirations 2025-01-29 11:12:00.000 20 /min Respirations 2025-01-27 12:36:00.000 20 /min Respirations 2025-01-25 11:11:00.000 20 /min Respirations 2025-01-22 11:33:00.000 20 /min Respirations 2025-01-20 11:20:00.000 20 /min Systolic Blood Pressure 2025-02-15 10:54:00.000 116 mm [Hg] Systolic Blood Pressure 2025-02-12 11:13:00.000 129 mm [Hg] Systolic Blood Pressure 2025-02-08 10:55:00.000 144 mm [Hg] Systolic Blood Pressure 2025-02-05 11:13:00.000 130 mm [Hg] Systolic Blood Pressure 2025-02-03 11:40:00.000 134 mm [Hg] Systolic Blood Pressure 2025-02-01 11:21:00.000 118 mm [Hg] Systolic Blood Pressure 2025-01-29 11:12:00.000 132 mm [Hg] Systolic Blood Pressure 2025-01-27 12:36:00.000 120 mm [Hg] Systolic Blood Pressure 2025-01-25 11:11:00.000 140 mm [Hg] Systolic Blood Pressure 2025-01-22 11:33:00.000 133 mm [Hg] Systolic Blood Pressure 2025-01-20 11:20:00.000 137 mm [Hg] Diastolic Blood Pressure 2025-02-15 10:54:00.000 72 mm [Hg] Diastolic Blood Pressure 2025-02-12 11:13:00.000 70 mm [Hg] Diastolic Blood Pressure 2025-02-08 10:55:00.000 78 mm [Hg] Diastolic Blood Pressure 2025-02-05 11:13:00.000 76 mm [Hg] Diastolic Blood Pressure 2025-02-03 11:40:00.000 80 mm [Hg] Diastolic Blood Pressure 2025-02-01 11:21:00.000 68 mm [Hg] Diastolic Blood Pressure 2025-01-29 11:12:00.000 79 mm [Hg] Diastolic Blood Pressure 2025-01-27 12:36:00.000 68 mm [Hg] Diastolic Blood Pressure 2025-01-25 11:11:00.000 [...] AWARENESS FOR SAFETY AND WILL NOTIFY CLINICAL BOTTLE CARRIER AND PHYSICIAN/PROVIDER WITH ANY CHANGE IN CONDITION. [code = SKILLED NURSE WILL MAINTAIN SITUATIONAL AWARENESS FOR SAFETY AND WILL NOTIFY CLINICAL BOTTLE CARRIER AND PHYSICIAN/PROVIDER WITH ANY CHANGE IN CONDITION.] [...] MEDICATION LIST WEEKLY] Future Scheduled Test PATIENT VIET Y HAVE ONE SET OF EMERGENCY MEDICATION [...] DISEASE PROCESS BY END OF CERTIFICATION PERIOD. Encounters Start Date/Time End Date/Time Encounter Type Admission Type Attending [facility] Care Facility Care Department Encounter ID Discharge Date Discharge Status Discharge Condition Discharge Reason Percent Goals Met 2025-01-19 00:00:00 2025-03-19 00:00:00 [facility] [id number] 76.00
== END 2025-02-19 13:02 | disposition home or self-care (01) ==
LOC: HO.HMGCLDS 13:01
PROVIDERS: PCP Internal Medicine; Visit Provider Internal Medicine Nephrology
DX: Z13.1 Encounter for screening for diabetes mellitus (principal); N18.31 Chronic kidney disease, stage 3a; N25.81 Secondary hyperparathyroidism of renal origin; Q61.3 Polycystic kidney, unspecified
CPT/HCPCS: 36415; 80051; 82306; 82310; 82565; 83036; 83970; 84100; 84520

== ENCOUNTER 2025-02-24 11:03 | Outpatient (AMB) | payer MEDICARE, MEDICAID, SELFPAY ==
--- NOTE | 2025-02-24 11:23 | HO.NEPHOV_ITS ---
Vital Signs 02/24/25 11:24 Height 5 ft 6 in Weight 137 lb 2 oz BMI 22.1 BP 122/60 Blood Pressure Location Lt brachial Position Sitting Pulse 78 Pulse Source Pulse Oximeter Pulse Oximetry (%) 98 Oxygen Delivery Method Room Air Intake Visit Reasons: 3mon f/u w/labs-LVM Filenet Admin Required: No Accompanied by: Self / Same As Patient Allergies tomato (TOMATO) Allergy (Severe, Verified 02/24/25 11:24) ANAPHYLAXIS Sulfa (Sulfonamide Antibiotics) Allergy (Intermediate, Verified 02/24/25 11:24) TRAVIS davis albuterol Allergy (Unknown, Verified 02/24/25 11:24) Unknown metoclopramide (Reglan) Allergy (Unknown, Verified 02/24/25 11:24) Unknown quetiapine (From Seroquel) Adverse Reaction (Severe, Verified 02/24/25 11:24) Hallucinations HPI Comments Details: Lien was seen in the office in follow-up of her chronic kidney disease due to polycystic kidney disease and nephrolithiasis. She has H/O major depressive disorder needing ECT. She denies any flank pain, night sweats, weight loss, hematuria, pedal edema, headache, visual disturbances, chest pain, shortness of breath, nausea, vomiting or any other urinary symptoms. Her tremors are well controlled with the current dose of carbidopa/levodopa. She tries to maintain good hydration and avoids nonsteroidal anti-inflammatory medications. Her blood pressure has been at goal. She does not get recurrent UTI's ON LICENSE OF [facility] Medical History Low back pain Back pain Osteoporosis Restless legs syndrome (RLS) Parkinson's disease without dyskinesia or fluctuating manifestations History of uterine cancer Parkinson's disease without dyskinesia Sleep disorder Anemia CKD (chronic kidney disease), stage III PTSD (post-traumatic stress disorder) Hyperparathyroidism Family history of malignant neoplasm of endometrium Polycystic kidney disease Multinodular thyroid Back pain GERD (gastroesophageal reflux disease) Chronic fatigue IBS (irritable bowel syndrome) Fibromyalgia COPD (chronic obstructive pulmonary disease) Surgical History Hx laparoscopic cholecystectomy History of esophagogastroduodenoscopy (EGD) H/O colonoscopy (~06/23/21) History of left breast biopsy Hx of cholecystectomy History of sinus surgery History of carpal tunnel syndrome History of total abdominal hysterectomy Family History Father COPD (chronic obstructive pulmonary disease) Mother Arteriosclerosis Breast cancer, Onset Age: 80 Sister Diabetes mellitus Breast cancer, Onset Age: 70 Brother Bone cancer History of pituitary cancer Social History Household Members: None Housing: House Do you presently have visiting nurse or other home services: No Alcohol intake: current Alcohol intake frequency: does not drink Patient Tobacco Use Status: Never used Tobacco e-Cigarette/Vaping Use: Never Used service: No Current occupational status: retired Sexual orientation: Straight/Heterosexual Cognitive needs: Yes (cane ) Hearing needs: No Vision needs: Yes Review of Systems Const All systems reviewed & are unremarkable except as noted in HPI and below Physical Exam Vital Signs: Last Vital Signs Pulse 78 02/24/25 11:24 BP 122/60 02/24/25 11:24 Pulse Ox 98 02/24/25 11:24 Oxygen Delivery Method Room Air 02/24/25 11:24 BMI result Body Mass Index 22.1 Const General: comfortable and no acute distress Orientation/consciousness: patient oriented x3 HEENT Head: Yes normocephalic Mouth: Normal oral and palatal mucosa present Eyes EOM: EOMs intact bilaterally Neck Neck: Yes supple Resp Auscultation: clear to auscultation bilaterally Cardio Jugular venous distension: no JVD Rate: regular rate Heart sounds: Murmur heart sound present GI Palpation (GI): Soft to palpation Auscultation: normal bowel sounds General: Yes no CVA tenderness Back/Spine/Pelvis Back: no CVA tenderness Skin General skin exam: no rashes or lesions noted Neuro General: patient oriented x3 and moves all extremities Extrem General: Yes no pedal edema Results Reviewed Nephrology Results: Sodium, (135-145) 141 mmol/L 02/19/25 Potassium, (3.3-5.1) 4.7 mmol/L Δ 02/19/25 Chloride, (96-108) 106 mmol/L 02/19/25 Carbon Dioxide, (22-29) 27 mmol/L 02/19/25 BUN, (9-16) 33 mg/dL H 12/12/25 Creatinine, (0.5-1.4) 1.62 mg/dL H 02/19/25 Calcium, (8.4-10.2) 10.4 mg/dL H Δ 02/19/25 Phosphorus, (2.7-4.5) 3.8 mg/dL 02/19/25 PTH Intact, (8.7-77.1) 133.2 pg/mL H 02/19/25 Renal US 02/26/23 Assessment & Plan Assessment & Plan (1) Secondary hyperparathyroidism (of renal origin): Code(s): N25.81 - Secondary hyperparathyroidism of renal origin Category: Medical (2) Polycystic kidney disease: Code(s): Q61.3 - Polycystic kidney, unspecified Category: Medical (3) CKD (chronic kidney disease), stage III: Code(s): N18.30 - Chronic kidney disease, stage 3 unspecified Category: Medical Qualifiers: Chronic kidney disease stage 3 subtype: stage 3a (GFR 45-59) Qualified Code(s): N18.31 - Chronic kidney disease, stage 3a Keith Emmanuel has CKD from polycystic kidney disease. She has history of microscopic hematuria and nephrolithiasis. She has no history of proteinuria. Her blood pressure has been at goal. She has no flank pain, pedal edema. She does not take any nonsteroidal anti-inflammatory medications. She may need MRI to assess the status of renal cyst. She has no history of any CVA in the family. C/W Farxiga 5 mg daily. She should maintain good hydration. I did not make any other medication changes today. All questions answered. Follow-up given. Orders: Orders Blood Urea Nitrogen 6 Months N18.31 - Chronic kidney disease, stage 3a, N25.81 - Secondary hyperparathyroidism of renal origin, Q61.3 - Polycystic kidney, unspecified Electrolytes 6 Months N18.31 - Chronic kidney disease, stage 3a, N25.81 - Secondary hyperparathyroidism of renal origin, Q61.3 - Polycystic kidney, unspecified Creatinine 6 Months N18.31 - Chronic kidney disease, stage 3a, N25.81 - Secondary hyperparathyroidism of renal origin, Q61.3 - Polycystic kidney, unspecified Coding Level of Care Code Est Pt Level 4 (50471) Diagnoses Secondary hyperparathyroidism (of renal origin) N25.81 Polycystic kidney disease Q61.3 Stage 3a chronic kidney disease N18.31 Chronic kidney disease stage 3 subtype: stage 3a (GFR 45-59)
[2025-02-24 11:24] VITALS: BP 122/60; PULSE 78; O2SAT 98; BMI 22.1
--- OUTSIDE RECORDS SUMMARY | 2025-02-24 14:37 | XMS_ITS | Clinical Summary ---
Author Organization [facility] Address [address] [place] [address] Care Team Providers Care Mastercam Programmer Name Role Phone Christi Helms MD Primary Care Provider [phone] Allergies Active Allergy Reactions Criticality Noted Date [...] older) 08/03/2016 Influenza Vaccine 10/09/2024 COVID-19 Vaccine (1 - 2024-2 6 season) 2024 RSV Vaccine 50 years and old er and Patients (1 - 1-dose 75+ series) 08/03/2026 Hepatitis B Vaccines Aged Out No long er eligible based on patient's age to complete this topic Insurance [employer] [facility] TPL (AUTO/LIABILITY) MEDICARE PART A & B [facility] Care Teams Mastercam Programmer Relationship Specialty Start Date End Date Christi Helms MD [address] [place] [id number] PCP - General 08/27/19
--- OUTSIDE RECORDS SUMMARY | 2025-02-24 14:37 | XMS_ITS | Patient Health Record ---
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: Does not smoke nor use [...] W/U Status Risk Notes Problem Esophageal reflux (549864870) Esophageal reflux (K21.9) Active confirmed Problem Screening for malignant neoplasm of colon (355319790) Encounter for screening for malignant neoplasm of colon (Z12.11) Active confirmed Problem Weight loss (517052405) Weight loss (R63.4) Active confirmed Problem Gastric polyp (13762574) Gastric polyp (K31.7) Active confirmed Problem Gastritis (2886899) Gastritis (K29.70) Active c onfirmed Problem Diarrhea (76653412) Diarrhea, unspecified type (R19.7) Active confirmed Problem Irritable bowel syndrome (46361952) Irritable bowel syndrome with both constipation and diarrhea (K58.2) Active confirmed Problem Diverticulosis of colon (393704259) Diverticulosis of colon (K57.30) Active confirmed Problem Benign neoplasm of stomach (36584718) Gastric adenoma (D13.1) Active confirmed Problem Gastroesophageal reflux disease (003878654) Gastroesophageal reflux disease, unspecified whether esophagitis present (K21.9) Active confirmed Problem Nausea and vomiting (66414847) Nausea and vomiting, unspecified vomiting type (R11.2) [...] End Date [employer] (No Referral) [address] [address] [place] [address] [id number] HE CRAIG Self - patient is the insured MEDICAID OF [place] [address] [place] [phone] [id number] HE CRAIG Self - patient is the insured Medical (General) History Medical History History ICD Code COPD/Asthma IBS PTSD/Depression Denies [place],DM,CVA,renal disease GERD Upper endo in 05/2011 with [...]
--- OUTSIDE RECORDS SUMMARY | 2025-03-18 19:00 | XMS_ITS | Clinical Summary ---
Author Organization Unknown Care Team Providers Care Hand Sprayer Name Role Phone YAIMA RASMUSSEN, KAVITA BEST Unavailable Unamirella SPEARS RN, SNEHAL Unavailable Unavailable Payers Payer Name Policy Type Policy Number Effective Date Expira tion Date [employer] MEDICARE ADVANTAGE FFS [id number] MEDICARE - [place] PDGM [id number] Problems Condition Name Condition Details Condition Category [...] 06-25 00:00: 00 12-31 23:59 :00 No [id number] 2 puff DIRECTED 2 puff DIRECTED (route: inhalation ) Med Classific ation: Respirato ry Therapy Agents bupropion HCl XL 300 mg 24 hr tablet, extended release 06-25 00:00: 00 12-31 23:59 :00 No [id number] 1 tablet DAILY 1 tablet DAILY (route: oral) Med Classific ation: Central Nervous System Agents carbidopa 25 mg-levodopa 100 mg tablet 417 00:00: 00 12-31 23:59 :00 No [id number] 1.5 tablet 4 TIMES DAILY 1.5 tablet 4 TIMES DAILY (route: oral) Med Classific ation: Central Nervous System Agents famotidine 40 mg tablet 417 00:00: 00 09-01 23:59 :00 No [id number] 1 tablet DAILY 1 tablet DAILY (route: oral) Med Classific ation: Gastroint estinal Therapy Agents paroxetine 40 mg tablet 17 00:00: 00 12-31 23:59 :00 No [id number] 1 tablet DAILY 1 tablet DAILY (route: oral) Med Classific ation: Central Nervous System Agents trazodone 50 mg tablet 06-25 00:00: 00 09-01 23:59 :00 No [id number] Per instruc tions BEDTIME Per instructio ns BEDTIME (route: oral) Med Classific ation: Central Nervous System Agents gabapentin 100 mg capsule -24 00:00: 00 09-01 23:59 :00 No [id number] pain Per instruc tions BEDTIME Per instructio ns BEDTIME (route: oral) Med Classific ation: Central Nervous System Agents omeprazole 40 mg capsule,del ayed release -24 00:00: 00 05-20 23:59 :00 No [id number] 1 capsule DAILY 1 capsule DAILY (route: oral) Med Classific ation: Gastroint estinal Therapy Agents gabapentin 100 mg capsule 2023-03 0- 00:00: 00 09-01 23:59 :00 No [id number] Per instruc tions 2 TIMES DAILY Per instructio ns 2 TIMES DAILY (route: oral) Med Classific ation: Central Nervous System Agents famotidine 40 mg tablet 3-16 00:00: 00 12-31 23:59 :00 No [id number] 1 tablet EVERY AM 1 tablet EVERY AM (route: oral) Med Classific ation: Gastroint estinal Therapy Agents Tylenol Arthritis Pain 650 mg tablet,exte nded release 3-21 00:00: 00 12-31 23:59 :00 No [id number] 1 tablet EVERY 8 HOURS 1 tablet EVERY 8 HOURS (route: oral) Med Classific ation: Analgesic , Anti-infl ammatory or Antipyret ic cyclobenzap rine 10 mg tablet 08-05 00:00: 00 09-01 23:59 :00 No [id number] 1 tablet BEDTIME 1 tablet BEDTIME (route: oral) Med Classific ation: Locomotor System meloxicam 15 mg tablet 08-05 00:00: 00 09-01 23:59 :00 No [id number] 1 tablet DAILY 1 tablet DAILY (route: oral) Med Classific ation: Analgesic , Anti-infl ammatory or Antipyret ic cyclobenzap rine 10 mg tablet 09-01 00:00: 00 12-31 23:59 :00 No [id number] 1 tablet BEDTIME 1 tablet BEDTIME (route: oral) Med Classific ation: Locomotor System meloxicam 15 mg tablet 09-01 00:00: 00 12-31 23:59 :00 No [id number] 1 tablet EVERY AM 1 tablet EVERY AM (route: oral) Med Classific ation: Analgesic , Anti-infl ammatory or Antipyret ic trazodone 50 mg tablet 09-01 00:00: 00 12-31 23:59 :00 No [id number] Per instruc tions BEDTIME Per instructio ns BEDTIME (route: oral) Med Classific ation: Central Nervous System Agents erythromyci n 5 mg/gram (0.5 %) eye ointment 2024-03 00:00: 00 Yes [id number] Per instruc tions 4 TIMES DAILY Per instructio ns 4 TIMES DAILY (route: ophthalmic (eye)) Med Classific ation: Ophthalmi c Agents albuterol sulfate HFA 90 mcg/actuati on aerosol inhaler 2024-03 00:00: 00 Yes [id number] 2 puff EVERY 6 HOURS 2 puff EVERY 6 HOURS (route: inhalation ) Med Classific ation: Respirato ry Therapy Agents bupropion HCl XL 300 mg 24 hr tablet, extended release 2024-03 00:00: 00 Yes [id number] 1 tablet EVERY AM 1 tablet EVERY AM (route: oral) Med Classific ation: Central Nervous System Agents carbidopa 25 mg-levodopa 100 mg disintegrat ing tablet 2024-03 00:00: 00 Yes [id number] 1.5 tablet NOON 1.5 tablet NOON (route: oral) Med Classific ation: Central Nervous System Agents carbidopa 25 mg-levodopa 100 mg tablet 2024-03 00:00: 00 Yes [id number] 1.5 tablet EVERY AM 1.5 tablet EVERY AM (route: oral) Med Classific ation: Central Nervous System Agents carbidopa 25 mg-levodopa 100 mg tablet 2024-03 00:00: 00 Yes [id number] 1.5 tablet EVERY PM 1.5 tablet EVERY PM (route: oral) Med Classific ation: Central Nervous System Agents carbidopa 25 mg-levodopa 100 mg tablet 2024-03 00:00: 00 Yes [id number] 1.5 tablet BEDTIME 1.5 tablet BEDTIME (route: oral) Med Classific ation: Central Nervous System Agents cyclobenzap rine 10 mg tablet 2024-03 00:00: 00 Yes [id number] 1 tablet BEDTIME 1 tablet BEDTIME (route: oral) Med Classific ation: Locomotor System famotidine 40 mg tablet 2024-03 00:00: 00 Yes [id number] 1 tablet EVERY AM 1 tablet EVERY AM (route: oral) Med Classific ation: Gastroint estinal Therapy Agents meloxicam 15 mg tablet 2024-03 00:00: 00 Yes [id number] 1 tablet EVERY AM 1 tablet EVERY AM (route: oral) Med Classific ation: Analgesic , Anti-infl ammatory or Antipyret ic paroxetine 40 mg tablet 2024-03 00:00: 00 Yes [id number] 1 tablet EVERY AM 1 tablet EVERY AM (route: oral) Med Classific ation: Central Nervous System Agents trazodone 50 mg tablet 2024-03 00:00: 00 Yes [id number] 1 tablet BEDTIME 1 tablet BEDTIME (route: oral) Med Classific ation: Central Nervous System Agents Tylenol Arthritis Pain 650 mg tablet,exte nded release 2024-03 0 00:00: 00 Yes [id number] 1 tablet EVERY 8 HOURS 1 tablet EVERY 8 HOURS (route: oral) Med Classific ation: Analgesic , Anti-infl ammatory or Antipyret ic Farxiga 5 mg tablet 2024-03 1 00:00: 00 Yes [id number] 1 tablet EVERY AM 1 tablet EVERY AM (route: oral) Med Classific ation: Endocrine Vital Signs Vital Name Observation Time Observation Value Commen ts Pulse 2025-02-22 11:27:00.000 72 /min Pulse 2025-02-17 10:45:00.000 66 /min Pulse 2025-02-15 10:54:00.000 55 /min Pulse 2025-02-08 10:55:00.000 59 /min Pulse 2025-02-05 11:13:00.000 72 /min Pulse 2025-02-03 11:40:00.000 63 /min Pulse 2025-02-01 11:21:00.000 68 /min Pulse 2025-01-29 11:12:00.000 72 /min Pulse 2025-01-25 11:11:00.000 67 /min Pulse 2025-01-22 11:33:00.000 79 /min Pulse 2025-01-20 11:20:00.000 62 /min O2 Saturation (%) 2025-02-22 11:27:00.000 98 % O2 Saturation (%) 2025-02-15 10:54:00.000 99 % O2 Saturation (%) 2025-02-08 10:55:00.000 96 % O2 Saturation (%) 2025-02-01 11:21:00.000 94 % O2 Saturation (%) 2025-01-25 11:11:00.000 97 % Respirations 2025-02-22 11:27:00.000 20 /min Respirations 2025-02-17 10:45:00.000 20 /min Respirations 2025-02-15 10:54:00.000 20 /min Respirations 2025-02-12 11:13:00.000 20 /min Respirations 2025-02-10 11:29:00.000 20 /min Respirations 2025-02-08 10:55:00.000 20 /min Respirations 2025-02-05 11:13:00.000 20 /min Respirations 2025-02-03 11:40:00.000 20 /min Respirations 2025-02-01 11:21:00.000 20 /min Respirations 2025-01-29 11:12:00.000 20 /min Respirations 2025-01-27 12:36:00.000 20 /min Respirations 2025-01-25 11:11:00.000 20 /min Respirations 2025-01-22 11:33:00.000 20 /min Respirations 2025-01-20 11:20:00.000 20 /min Systolic Blood Pressure 2025-02-22 11:27:00.000 130 mm [Hg] Systolic Blood Pressure 2025-02-17 10:45:00.000 114 mm [Hg] Systolic Blood Pressure 2025-02-15 10:54:00.000 116 mm [...] 11:20:00.000 137 mm [Hg] Diastolic Blood Pressure 2025-02-22 11:27:00.000 66 mm [Hg] Diastolic Blood Pressure 2025-02-17 10:45:00.000 68 mm [Hg] Diastolic Blood Pressure 2025-02-15 10:54:00.000 [...] AWARENESS FOR SAFETY AND WILL NOTIFY CLINICAL BANQUET PREP COOK AND PHYSICIAN/PROVIDER WITH ANY CHANGE IN CONDITION. [code = SKILLED NURSE WILL MAINTAIN SITUATIONAL AWARENESS FOR SAFETY AND WILL NOTIFY CLINICAL BANQUET PREP COOK AND PHYSICIAN/PROVIDER WITH ANY CHANGE IN CONDITION.] [...] FORGETFUL. SHE PRESENTS CLEAN AND NEATLY DRESSED WITH A FLAT GUARDED AFFECT AND SHE IS TANGENTIAL T/O VISIT. SHE REPORTS FORGETFULNESS WITH DIFFICULTY FINDING ITEMS INCLUDING HER INSURANCE PAPERWORK. HER HOME IS CLUTTERED WITH PAPERWORK SCATTERED AROUND KITCHEN AND LIVINGROOM. SHE REPORTS STARTING MULTIPLE PROJECTS THAN GETTING DISTRACTED AND STARTING SOMETHING ELSE WITHOUT COMPLETING TASKS. SHE REPORTS FEELING OVERWHELMED WITH HER DIFFICULTY WITH ORGANIZATION. SHE WAS SEEN BY ENDOCRONOLOGIST ON SATURDAY AND STATES SHE POTENTIALLY WILL NEED SURGERY TO HAVE THYROID GLANDS REMOVED. SHE C/O DIFFICULTY SLEEPING D/T RESTLESS LEGS AT HS. SHE STATES SHE IS GOING TO CALL HER PCP TODAY TO REPORT AND D/T SHE MISSED HER SCHEDULED APPT ON 02/16. SHE STATES SHE WILL RESCHEDULE APPT. SHE IS COMPLIANT WITH HER MED PP PER HER MED DATA ANALYTICS SPECIALIST AND SHE DENIES ANY ADVERSE EFFECTS.</paragraph> Encounters Start Date/Time End Date/Time Encounter Type Admission Type Attending [facility] Facility Care Department Encounter ID Discharge Date Discharge Status Discharge Condition Discharge Reason Percent Goals Met 2025-01-19 00:00:00 2025-03-19 00:00:00 Outpatient RECERTIFIC ATSNEHAL VELA [facility] [id number] 76.00
== END 2025-02-24 11:35 | disposition home or self-care (01) ==
LOC: HO.HKA 11:04
PROVIDERS: PCP Internal Medicine; Visit Provider Internal Medicine Nephrology
DX: N25.81 Secondary hyperparathyroidism of renal origin (principal); Q61.3 Polycystic kidney, unspecified; N18.31 Chronic kidney disease, stage 3a
CPT/HCPCS: 99214

== ENCOUNTER → 2025-02-24 11:03 | Outpatient (BNVA) | payer MEDICARE, MEDICAID, SELFPAY | PROVIDERS: PCP Internal Medicine; Visit Provider Internal Medicine Nephrology | DX: N18.31 Chronic kidney disease, stage 3a (principal); N25.81 Secondary hyperparathyroidism of renal origin; Q61.3 Polycystic kidney, unspecified; Z79.899 Other long term (current) drug therapy | CPT/HCPCS: 99212 ==

== ENCOUNTER 2025-03-08 14:01 | Outpatient (AMB) | payer MEDICARE, MEDICAID, SELFPAY ==
[2025-03-08 14:04] VITALS: BP 112/56; PULSE 68; RESP 14; TEMP 36.4; O2SAT 96; BMI 21.9
--- NOTE | 2025-03-08 14:04 | A.OFFPC_ITS ---
Vital Signs 03/08/25 14:04 Height 5 ft 6 in Weight 136 lb BMI 21.9 BP 112/56 L Blood Pressure Location Rt brachial Position Sitting Respiration 14 Pulse 68 Pulse Source Pulse Oximeter Temp 97.6 F Temp Source Temporal Artery Scan Pulse Oximetry (%) 96 Oxygen Delivery Method Room Air Intake Visit Reasons: Parkinson's disease Ancillary Services Manager Therapy Required: No Accompanied by: Self / Same As Patient Allergies tomato (TOMATO) Allergy (Severe, Verified 03/08/25 14:33) ANAPHYLAXIS Sulfa (Sulfonamide Antibiotics) Allergy (Intermediate, Verified 03/08/25 14:33) TRAVIS davis metoclopramide (Reglan) Allergy (Unknown, Verified 03/08/25 14:33) Unknown quetiapine (From Seroquel) Adverse Reaction (Severe, Verified 03/08/25 14:33) Hallucinations Medication List - Last Reconciled 03/08/25 by Dennis De Oliveira MD albuterol sulfate 90 mcg/actuation 2 puffs inhalation Q6H PRN bupropion HCl XL 300 mg PO QAM carbidopa-levodopa 25-100 mg 1.5 tabs PO QID 90 days cyclobenzaprine 10 mg PO BEDTIME famotidine 40 mg PO QAM Farxiga (dapagliflozin propanediol) 5 mg PO DAILY 100 days NS meloxicam 15 mg PO DAILY multivitamin 1 tab PO DAILY paroxetine HCl 40 mg PO DAILY trazodone 25 - 50 mg (0.5 - 1 x 50 mg) PO BEDTIME MRX1 PRN 30 days Held on 03/08/25. Instructions: Doctor's Order Tobacco use date assessed: 08/04/24 Dental Screening Dental Screen Date: 08/04/24 HPI HPI Comments History of Present Illness Details History of Present Illness - The patient is a 74 year old female pr esenting for evaluation of restless leg problems. - She reports symptoms are triggered by prolonged sitting but are most significantly painful at night, waking her from sleep multiple times with jerky leg movements. - She has noticed that her leg symptoms are more likely to occur if she is late in taking her carbidopa. - The patient was diagnosed with Nato on's disease in 2016. - She is not currently under the care of a neurologist, as she has not seen one in over a year due to a negative experience with her previous provider. - The patient has a history of chronic k idney disease, for which she takes Farxiga and is followed by a aircraft engine mechanic overhaul, Dr. Power. - Recent lab work from February 19 ananya wed abnormal parathyroid levels. - She has consulted with an endocrinolog ist and a surgeon, who recommended a parathyroidectomy, which may occur in the spring pending further imaging. - She was advised to take vitamin D and calcium every other day. - The patient also reports a recent flar e-up of her irritable bowel syndrome (IBS) and notes having two trigger fingers. - Her last mammogram was over a year ago . Social History - The patient lives alone with her dog. - She is independent with activities of daily living, including cooking and grocery shopping. - She does not currently drive because s he does not have a car and relies on a friend for transportation. - She ambulates independently and does n ot use a walker. Results - Labs: Recent blood work from February 19 showed abnormal parathyroid levels. - A 24-hour urine collection was ordered . - Imaging: The patient's last mammogram was in the previous year. [facility] Medical History Low back pain Back pain Osteoporosis Restless legs syndrome (RLS) Parkinson's disease without dyskinesia or fluctuating manifestations History of uterine cancer Parkinson's disease without dyskinesia Sleep disorder Anemia CKD (chronic kidney disease), stage III PTSD (post-traumatic stress disorder) Hyperparathyroidism Family history of malignant neoplasm of endometrium Polycystic kidney disease Multinodular thyroid Back pain GERD (gastroesophageal reflux disease) Chronic fatigue IBS (irritable bowel syndrome) Fibromyalgia COPD (chronic obstructive pulmonary disease) Surgical History Hx laparoscopic cholecystectomy History of esophagogastroduodenoscopy (EGD) H/O colonoscopy (~06/23/21) History of left breast biopsy Hx of cholecystectomy History of sinus surgery History of carpal tunnel syndrome History of total abdominal hysterectomy Family History Father COPD (chronic obstructive pulmonary disease) Mother Arteriosclerosis Breast cancer, Onset Age: 80 Sister Diabetes mellitus Breast cancer, Onset Age: 70 Brother Bone cancer History of pituitary cancer Social History Household Members: None Housing: House Do you presently have visiting nurse or other home services: No Alcohol intake: current Alcohol intake frequency: does not drink Patient Tobacco Use Status: Never used Tobacco e-Cigarette/Vaping Use: Never Used service: No Current occupational status: retired Sexual orientation: Straight/Heterosexual Cognitive needs: Yes (cane ) Hearing needs: No Vision needs: Yes Questionnaire PHQ-9 Over the last 2 weeks, how often have you been bothered by any of the following problems? 1. Little interest or pleasure in doing things: several days 2. Feeling down, depressed, or hopeless: not at all 3. Trouble falling or staying asleep, or sleeping too much: nearly every day 4. Feeling tired or having little energy: several days 5. Poor appetite or overeating: several days 6. Feeling bad about yourself - or that you are a failure or have let yourself or your family down: several days 7. Trouble concentrating on things, such as reading the newspaper or watching television: several days 8. Moving or speaking so slowly that other people could have noticed. Or the opposite - being so fidgety or restless that you have been moving around a lot more than usual: several days 9. Thoughts that you would be better off or of hurting yourself in some way: not at all Total score: 9 Source: Developed by Drs. Jagjit Osman, Gracia Kowalski, Emilio Wong and colleagues, with an educational luisa from [employer]. Thrive Questionnaire Date Thrive assessed: 02/15/24 I am a: Patient What is your living situation today?: I have a steady place to live Within the past 12 months, did the food you bought not last and you didn't have the money to get more?: Never true Within the past 12 months, did you worry whether your food would run out before you got money to buy more?: Never true Do you have trouble paying for medicines?: No Do you have trouble getting transportation to medical appointments?: No Do you have trouble paying your heating and electricity bill?: No Do you have trouble taking care of your child, family member or friend?: No Do you have trouble with day-to-day activities such as bathing, preparing meals, shopping, managing finances, etc.?: No Are you currently unemployed and looking for a job?: No Are you interested in more education?: No Please select the resources that you would like help with: None THRIVE Score: 0 AUDIT C Alcohol Use Questionnaire (AUDIT-C) 1. How often do you have a drink containing alcohol?: Never 3. How often do you have six or more drinks on one occasion?: Never Total Score: 0 CHEPE-7 AMB Questionnaire CHEPE-7 Date CHEPE - 7 assessed: 08/04/24 Feeling nervous, anxious, or on edge: 1 = Several days Not being able to stop or control worryin = Not at all Worrying too much about different things: 1 = Several days Trouble relaxin = Not at all Being so restless that it is hard to sit still: 0 = Not at all Becoming easily annoyed or irritable: 1 = Several days Feeling afraid as if something awful might happen: 0 = Not at all Total CHEPE-7 score (0-4 normal; 5-9 mild; 10-14 moderate; 15-21 severe): 3 Source: Developed by Drs. Jagjit Osman, Gracia Kowalski, Emilio Wnog and colleagues, with an educational luisa from [employer]. Review of Systems Narrative Review of Systems - Neurological: Reports episodes of painful, jerky leg movements, primarily at night, which awaken her from sleep multiple times. - Musculoskeletal: Reports symptoms consistent with trigger finger in two digits. - Gastrointestinal: Reports recent problems with irritable bowel syndrome. - Genitourinary: Reports occasional urinary leakage. - Eyes: Reports vision is okay. Physical exam (Primary Care) Vital Signs: Last Vital Signs Temp 97.6 F 03/08/25 14:04 Pulse 68 03/08/25 14:04 Resp 14 03/08/25 14:04 BP 112/56 L 03/08/25 14:04 Pulse Ox 96 03/08/25 14:04 Oxygen Delivery Method Room Air 03/08/25 14:04 BMI result Body Mass Index 21.9 Tobacco/Smoking Status: Tobacco use Status Tobacco use date assessed 08/04/24 03/08/25 14:13 Patient Tobacco Use Status Never used Tobacco 03/08/25 14:13 e-Cigarette/Vaping Use Never Used 03/08/25 14:13 PHQ-9: PHQ-9 Score PHQ-9: Total score 9 03/08/25 14:13 Thrive Assessment: Date of Thrive Assessment Date Thrive assessed 02/15/24 03/08/25 14:13 Narrative Physical Exam General: Appearance normal, both eyes and all related structures Nutritional Appearance: Well nourished Orientation/consciousness: Patient oriented x3 Limitations: No limitations Head: Normal to inspection Neck: Normal visual inspection Chest: Normal palpation of entire chest wall Respiratory: Normal respiratory effort Neurology: Patient oriented x3, reports restless leg problems causing pain and sudden jerky movements at night, possibly related to Parkinson's, chronic kidney disease, and parathyroid issues. Coding Level of Care Code Est Pt Level 4 (46220) Add On Problem Visit Only Diagnoses Parkinson's disease without dyskinesia or fluctuating manifestations G20.A1 Assessment & Plan Assessment & Plan (1) Parkinson's disease without dyskinesia or fluctuating manifestations: Code(s): G20.A1 - Parkinson's disease without dyskinesia, without mention of fluctuations Category: Medical Plan Plan - For restless leg syndrome, will initiate Ropinirole at the lowest dose, one tablet to be taken one to three hours before bedtime. - Instructed the patient to discontinue Trazodone upon starting Ropinirole. - Advised the patient to document her current leg symptoms to track improvement after starting the new medication. - For Parkinson's disease, a referral will be sent to Dr. Mackenzie, a neurologist in [place]. - For hyperparathyroidism, the patient will continue follow-up with the surgeon regarding a potential parathyroidectomy. - For health maintenance, an order for a screening mammogram will be placed. - I will schedule a follow-up appointment in one month to assess the efficacy of Ropinirole. Discussion Notes I discussed with the patient that her symptoms of burning pain and jerky movements in the legs at night could be attributed to several factors, including her Parkinson's disease, chronic kidney disease, and abnormal parathyroid function. I explained that I will treat her symptoms by prescribing Ropinirole, starting at the lowest dose, and that I may increase it if necessary. I advised her to stop taking Trazodone when she starts the Ropinirole. I emphasized the importance of her identifying and noting her current symptoms before starting the new medication so we can accurately assess its effectiveness. We reviewed her other ongoing care, including her planned follow-up with the surgeon for parathyroid removal and her continued management with her kidney doctor. I will place a referral to a new neurologist, Dr. Mackenzie, for her Parkinson's care and an order for a screening mammogram. I requested she follow up in one month to review her response to treatment. Patient Instructions - A prescription for Ropinirole will be sent to your pharmacy. Take one tablet about 1 to 3 hours before bedtime to help with your restless legs. - Stop taking Trazodone when you start the new Ropinirole medication. - Before you start Ropinirole, it is a good idea to write down what your leg symptoms feel like and how often they bother you. This will help us know if the medicine is working. - We are placing an order for you to get a mammogram. - We will also send a referral for you to see a new neurologist, Dr. Mackenzie. - Continue to see your surgeon about the parathyroid surgery and your kidney doctor for your kidney disease. - Please make a follow-up appointment to see me in one month. Orders: Orders MM screening mammo BI Today Z12.31 - Encounter for screening mammogram for malignant neoplasm of breast Referrals Neurology Referral G20.A1 - Parkinson's disease without dyskinesia, without mention of fluctuations Medications: On Hold trazodone Hold Comment: Doctor's Order 25 - 50 mg (0.5 - 1 x 50 mg) PO BEDTIME MRX1 PRN 30 tabs 0RF Insomnia 30 days
--- OUTSIDE RECORDS SUMMARY | 2025-03-08 16:17 | XMS_ITS | Clinical Summary ---
Author Organization [facility] Address [address] [place] [address] Phone Care Team Providers Care Flat Knitter Helper Name Role Phone Christi Helms MD Primary Care Provider Allergies Active Allergy Reactions Criticality Noted Date Comments Albuterol Other (see comments) 02/23/2016 Caused mouth sores. jitteriness [place] Other (see comments) 02/23/2016 Mouth breaks out. [...] to complete this topic [facility] [place] [id number] Medicaid [place] [facility] PPO ([id number]) Care Teams Flat Knitter Helper Relationship Specialty Start Date End Date Christi Helms MD [address] [place] [address] PCP - General 03/21/20
--- OUTSIDE RECORDS SUMMARY | 2025-03-08 16:18 | XMS_ITS | Patient Health Record ---
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 Section Notes: Does not smoke nor use [...] W/U Status Risk Notes Problem Esophageal reflux (603080546) Esophageal reflux (K21.9) Active confirmed Problem Screening for malignant neoplasm of colon (293861849) Encounter for screening for malignant neoplasm of colon (Z12.11) Active confirmed Problem Weight loss (105151965) Weight loss (R63.4) Active confirmed Problem Gastric polyp (90154682) Gastric polyp (K31.7) Active confirmed Problem Gastritis (8045385) Gastritis (K29.70) Active c onfirmed Problem Diarrhea (13106957) Diarrhea, unspecified type (R19.7) Active confirmed Problem Irritable bowel syndrome (62327784) Irritable bowel syndrome with both constipation and diarrhea (K58.2) Active confirmed Problem Diverticulosis of colon (399540643) Diverticulosis of colon (K57.30) Active confirmed Problem Benign neoplasm of stomach (37951295) Gastric adenoma (D13.1) Active confirmed Problem Gastroesophageal reflux disease (920798316) Gastroesophageal reflux disease, unspecified whether esophagitis present (K21.9) Active confirmed Problem Nausea and vomiting (08238523) Nausea and vomiting, unspecified vomiting type (R11.2) [...] End Date [employer] (No Referral) [address] [address] [place] [address] [id number] HE CRAIG Self - patient is the insured MEDICAID OF [employer] [address] [place] [id number] HE CRAIG Self - patient is the [...]
--- OUTSIDE RECORDS SUMMARY | 2025-03-08 16:18 | XMS_ITS | Encounter Summary ---
Author Organization [facility] Address [address] [place] [address] Phone Care Team Providers Care Maintenance Inspector Name Role Phone Pio Hamm DO Primary Care Provider [phone]- [phone] Encounter Details Date Type Department Care Team (Late st Contact Info) Description 02/28/2016 Procedure Pass [facility] [address] [place] [address] Social History Tobacco Use Types Packs/Day Years [...] on filedocumented in this encounter Care Teams Maintenance Inspector Relationship Specialty Start Date End Date Pio Hamm DO [address] [place] [address] PCP - General Internal Medicine 01/20/16 documented as of this encounter Additional Source Comments The information contained in this document represents components of the legal health record. It is not the complete legal health record.[facility]
--- OUTSIDE RECORDS SUMMARY | 2025-03-08 16:18 | XMS_ITS | Encounter Summary ---
Author Organization [facility] Address [address] [place] [address] Phone Care Team Providers Care Stock Worker Name Role Phone Pio Hamm DO Primary Care Provider +1- [phone] Encounter Details Date Type Department Care Team (Late st Contact Info) Description 02/28/2016 Procedure [facility] [address] [place] [address] Social History Tobacco Use Types Packs/Day Years [...] on filedocumented in this encounter Care Teams Stock Worker Relationship Specialty Start Date End Date Pio Hamm DO [address] [place] [address] PCP - General Internal Medicine 01/20/16 documented as of this encounter Additional Source Comments The information contained in this document represents components of the legal health record. It is not the complete legal health record.[facility]
--- OUTSIDE RECORDS SUMMARY | 2025-03-08 16:18 | XMS_ITS | Encounter Summary ---
Author Organization [facility] Address [address] [place] [address] Phone Care Team Providers Care Vp Delivery Name Role Phone Pio Hamm DO Primary Care Provider +1- [phone] Encounter Details Date Type Department Care Team (Late st Contact Info) Description 02/28/2016 Procedure [facility] [address] [place] [address] Social History Tobacco Use Types Packs/Day Years [...] on filedocumented in this encounter Care Teams Vp Delivery Relationship Specialty Start Date End Date Pio Hamm DO [address] [place] [address] PCP - General Internal Medicine 01/20/16 documented as of this encounter Additional Source Comments The information contained in this document represents components of the legal health record. It is not the complete legal health record.[facility]
--- OUTSIDE RECORDS SUMMARY | 2025-03-08 16:18 | XMS_ITS | Clinical Summary ---
Author Organization [facility] Address [address] [place] [address] Phone Care Team Providers Care Controlled Atmospheric Furnace Brazer Name Role Phone Pio Hamm Primary Care Provider +1- [phone] Allergies Active Allergy Reactions Criticality Noted Date Comments Albuterol 02/23/2016 Caused mouth sores. [place] [employer] Other (See Comments) Mouth breaks [...] file Insurance MEDICARE PART A & B [facility] MEDICARE PART A & B [place] B [facility] MEDIC[facility] PART A & B Member Subscriber Plan / Payer ( fective 1995-) Name:Lien Jerry Member ID:[id number] Relation to Subscriber:Self Name:Lien Jerry Subscriber ID:[id number] Payer ID:[id number] Group ID:Not on file Type:Medicare Address: [facility] Appear [facility] [address] [place] [phone] [place] MED[place] PART A & [place] B Member Subscriber Plan / Payer (Ef fective 1995-) Name:Lien Jerry Member ID:[id number] Relation to Subscriber:Self Name:Lien Jerry Subscriber ID:[id number] Payer ID:[id number] Group ID:Not on file Type:Medicare Address: [facility] [employer] [facility] [address] [place] [phone] [place] PART A & B Member Subscriber Plan / Payer (Ef fective 1995-Present) Name:Lien Jerry Member ID:[id number] Relation to Subscriber:Self Name:Lien Jerry Subscriber ID:[id number] Payer ID:[id number] Group ID:Not on file Type:Medicare Address: [facility] [employer] [facility] [address] [place] [phone] [place] PART A & B Member Subscriber Plan / Payer ( fective 1995-Present) Name:Lien Jerry Member ID:[id number] Relation to Subscriber:Self Name:Lien Jerry Subscriber ID:[id number] Payer ID:[id number] Group ID:Not on file Type:Medicare Address: [facility] [employer] [facility] [address] [place] [phone] [facility] Care Teams Controlled Atmospheric Furnace Brazer Relationship Specialty Start Date End Date Pio Hamm DO [address] [place] [address] PCP - General Internal Medicine 01/20/16 Additional Source Comments The information contained in this document represents components of the legal health record. It is not the complete legal health record.[facility]
--- OUTSIDE RECORDS SUMMARY | 2025-03-08 16:18 | XMS_ITS | Clinical Summary ---
Author Organization [facility] Address [address] [place] [address] Care Team Providers Care Baked Goods Stock Clerk Name Role Phone Christi Helms MD Primary Care Provider [phone] Allergies Active Allergy Reactions Criticality Noted Date [...] patient's age to complete this topic Insurance [employer] [facility] (AUTO/LIABILITY) MEDICARE PART A & B [facility] Care Teams Baked Goods Stock Clerk Relationship Specialty Start Date End Date Christi Helms MD [address] [place] [phone] PCP - General 08/27/19
--- OUTSIDE RECORDS SUMMARY | 2025-03-18 19:00 | XMS_ITS | Clinical Summary ---
Author Organization Unknown Care Team Providers Care Sales Center Manager Name Role Phone YAIMA RASMUSSEN, KAVITA BEST Unavailable Unamirella SPEARS RN, SNEHAL Unavailable Unavailable Payers Payer Name Policy Type Policy Number Effective Date Expira tion Date [employer] MEDICARE ADVANTAGE FFS [id number] MEDICARE - [place] PDGM [id number] Problems Condition Name Condition Details Condition Category [...] 06-25 00:00: 00 12-31 23:59 :00 No [id number] 2 puff DIRECTED 2 puff DIRECTED (route: inhalation ) Med Classific ation: Respirato ry Therapy Agents bupropion HCl XL 300 mg 24 hr tablet, extended release 06-25 00:00: 00 12-31 23:59 :00 No [id number] 1 tablet DAILY 1 tablet DAILY (route: oral) Med Classific ation: Central Nervous System Agents carbidopa 25 mg-levodopa 100 mg tablet 417 00:00: 00 12-31 23:59 :00 No [id number] 1.5 tablet 4 TIMES DAILY 1.5 tablet 4 TIMES DAILY (route: oral) Med Classific ation: Central Nervous System Agents famotidine 40 mg tablet 417 00:00: 00 09-01 23:59 :00 No [id number] 1 tablet DAILY 1 tablet DAILY (route: oral) Med Classific ation: Gastroint estinal Therapy Agents paroxetine 40 mg tablet 17 00:00: 00 12-31 23:59 :00 No [id number] 1 tablet DAILY 1 tablet DAILY (route: oral) Med Classific ation: Central Nervous System Agents trazodone 50 mg tablet 06-25 00:00: 00 09-01 23:59 :00 No [id number] Per instruc tions BEDTIME Per instructio ns BEDTIME (route: oral) Med Classific ation: Central Nervous System Agents gabapentin 100 mg capsule -24 00:00: 00 09-01 23:59 :00 No [id number] pain Per instruc tions BEDTIME Per instructio ns BEDTIME (route: oral) Med Classific ation: Central Nervous System Agents omeprazole 40 mg capsule,del ayed release -24 00:00: 00 05-20 23:59 :00 No [id number] 1 capsule DAILY 1 capsule DAILY (route: oral) Med Classific ation: Gastroint estinal Therapy Agents gabapentin 100 mg capsule 2023-03 0- 00:00: 00 09-01 23:59 :00 No [id number] Per instruc tions 2 TIMES DAILY Per instructio ns 2 TIMES DAILY (route: oral) Med Classific ation: Central Nervous System Agents famotidine 40 mg tablet 3-16 00:00: 00 12-31 23:59 :00 No [id number] 1 tablet EVERY AM 1 tablet EVERY AM (route: oral) Med Classific ation: Gastroint estinal Therapy Agents Tylenol Arthritis Pain 650 mg tablet,exte nded release 3-21 00:00: 00 12-31 23:59 :00 No [id number] 1 tablet EVERY 8 HOURS 1 tablet EVERY 8 HOURS (route: oral) Med Classific ation: Analgesic , Anti-infl ammatory or Antipyret ic cyclobenzap rine 10 mg tablet 08-05 00:00: 00 09-01 23:59 :00 No [id number] 1 tablet BEDTIME 1 tablet BEDTIME (route: oral) Med Classific ation: Locomotor System meloxicam 15 mg tablet 08-05 00:00: 00 09-01 23:59 :00 No [id number] 1 tablet DAILY 1 tablet DAILY (route: oral) Med Classific ation: Analgesic , Anti-infl ammatory or Antipyret ic cyclobenzap rine 10 mg tablet 09-01 00:00: 00 12-31 23:59 :00 No [id number] 1 tablet BEDTIME 1 tablet BEDTIME (route: oral) Med Classific ation: Locomotor System meloxicam 15 mg tablet 09-01 00:00: 00 12-31 23:59 :00 No [id number] 1 tablet EVERY AM 1 tablet EVERY AM (route: oral) Med Classific ation: Analgesic , Anti-infl ammatory or Antipyret ic trazodone 50 mg tablet 09-01 00:00: 00 12-31 23:59 :00 No [id number] Per instruc tions BEDTIME Per instructio ns BEDTIME (route: oral) Med Classific ation: Central Nervous System Agents erythromyci n 5 mg/gram (0.5 %) eye ointment 2024-03 00:00: 00 Yes [id number] Per instruc tions 4 TIMES DAILY Per instructio ns 4 TIMES DAILY (route: ophthalmic (eye)) Med Classific ation: Ophthalmi c Agents albuterol sulfate HFA 90 mcg/actuati on aerosol inhaler 2024-03 00:00: 00 Yes [id number] 2 puff EVERY 6 HOURS 2 puff EVERY 6 HOURS (route: inhalation ) Med Classific ation: Respirato ry Therapy Agents bupropion HCl XL 300 mg 24 hr tablet, extended release 2024-03 00:00: 00 Yes [id number] 1 tablet EVERY AM 1 tablet EVERY AM (route: oral) Med Classific ation: Central Nervous System Agents carbidopa 25 mg-levodopa 100 mg disintegrat ing tablet 2024-03 00:00: 00 Yes [id number] 1.5 tablet NOON 1.5 tablet NOON (route: oral) Med Classific ation: Central Nervous System Agents carbidopa 25 mg-levodopa 100 mg tablet 2024-03 00:00: 00 Yes [id number] 1.5 tablet EVERY AM 1.5 tablet EVERY AM (route: oral) Med Classific ation: Central Nervous System Agents carbidopa 25 mg-levodopa 100 mg tablet 2024-03 00:00: 00 Yes [id number] 1.5 tablet EVERY PM 1.5 tablet EVERY PM (route: oral) Med Classific ation: Central Nervous System Agents carbidopa 25 mg-levodopa 100 mg tablet 2024-03 00:00: 00 Yes [id number] 1.5 tablet BEDTIME 1.5 tablet BEDTIME (route: oral) Med Classific ation: Central Nervous System Agents cyclobenzap rine 10 mg tablet 2024-03 00:00: 00 Yes [id number] 1 tablet BEDTIME 1 tablet BEDTIME (route: oral) Med Classific ation: Locomotor System famotidine 40 mg tablet 2024-03 00:00: 00 Yes [id number] 1 tablet EVERY AM 1 tablet EVERY AM (route: oral) Med Classific ation: Gastroint estinal Therapy Agents meloxicam 15 mg tablet 2024-03 00:00: 00 Yes [id number] 1 tablet EVERY AM 1 tablet EVERY AM (route: oral) Med Classific ation: Analgesic , Anti-infl ammatory or Antipyret ic paroxetine 40 mg tablet 2024-03 00:00: 00 Yes [id number] 1 tablet EVERY AM 1 tablet EVERY AM (route: oral) Med Classific ation: Central Nervous System Agents trazodone 50 mg tablet 2024-03 00:00: 00 Yes [id number] 1 tablet BEDTIME 1 tablet BEDTIME (route: oral) Med Classific ation: Central Nervous System Agents Tylenol Arthritis Pain 650 mg tablet,exte nded release 2024-03 0- 00:00: 00 Yes [id number] 1 tablet EVERY 8 HOURS 1 tablet EVERY 8 HOURS (route: oral) Med Classific ation: Analgesic , Anti-infl ammatory or Antipyret ic Farxiga 5 mg tablet 2024-03 1- 00:00: 00 Yes [id number] 1 tablet EVERY AM 1 tablet EVERY AM (route: oral) Med Classific ation: Endocrine Vital Signs Vital Name Observation Time Observation Value Commen ts Pulse 2025-03-01 11:00:00.000 68 /min Pulse 2025-02-22 11:27:00.000 72 /min Pulse 2025-02-17 10:45:00.000 66 /min Pulse 2025-02-15 10:54:00.000 55 /min Pulse 2025-02-08 10:55:00.000 59 /min Pulse 2025-02-05 11:13:00.000 72 /min Pulse 2025-02-03 11:40:00.000 63 /min Pulse 2025-02-01 11:21:00.000 68 /min Pulse 2025-01-29 11:12:00.000 72 /min Pulse 2025-01-25 11:11:00.000 67 /min Pulse 2025-01-22 11:33:00.000 79 /min Pulse 2025-01-20 11:20:00.000 62 /min O2 Saturation (%) 2025-03-01 11:00:00.000 98 % O2 Saturation (%) 2025-02-22 11:27:00.000 98 % O2 Saturation (%) 2025-02-15 10:54:00.000 99 % O2 Saturation (%) 2025-02-08 10:55:00.000 96 % O2 Saturation (%) 2025-02-01 11:21:00.000 94 % O2 Saturation (%) 2025-01-25 11:11:00.000 97 % Respirations 2025-03-03 10:45:00.000 20 /min Respirations 2025-03-01 11:00:00.000 20 /min Respirations 2025-02-26 11:34:00.000 20 /min Respirations 2025-02-22 11:27:00.000 20 /min Respirations 2025-02-17 [...] 2025-01-20 11:20:00.000 20 /min Systolic Blood Pressure 2025-03-03 10:45:00.000 106 mm [Hg] Systolic Blood Pressure 2025-03-01 11:00:00.000 130 mm [Hg] Systolic Blood Pressure 2025-02-26 11:34:00.000 108 mm [Hg] Systolic Blood Pressure 2025-02-22 11:27:00.000 130 mm [...] 11:20:00.000 137 mm [Hg] Diastolic Blood Pressure 2025-03-03 10:45:00.000 70 mm [Hg] Diastolic Blood Pressure 2025-03-01 11:00:00.000 68 mm [Hg] Diastolic Blood Pressure 2025-02-26 11:34:00.000 76 mm [Hg] Diastolic Blood Pressure 2025-02-22 11:27:00.000 [...] AWARENESS FOR SAFETY AND WILL NOTIFY CLINICAL SOAP SLABBER AND PHYSICIAN/PROVIDER WITH ANY CHANGE IN CONDITION. [code = SKILLED NURSE WILL MAINTAIN SITUATIONAL AWARENESS FOR SAFETY AND WILL NOTIFY CLINICAL SOAP SLABBER AND PHYSICIAN/PROVIDER WITH ANY CHANGE IN CONDITION.] [...] METHODS TO MANAGE PARKINSON'S DISEASE PROGRESSION.] Goal 2024-07-20 Patient Goal - T O GET OUT OF PAIN SO I CAN BE MORE ACTIVE Goal 2024-05-20 Patient Goal - M HANS APPT WITH NEW THERAPIST Goal 2024-03-20 Patient Goal - TO STAY HEALT HY Goal 2024-01-20 Patient Goal - TO GET THINGS ORGANIZED Goal Patient Goal - F INISH THINGS I START BEFORE STARTING SOMETHING ELSE Goal 2025-01-15 Patient Goal - T O NOT FORGET MY PARKINSON'S MEDICATION Goal 2024-11-16 Patient Goal - TAKE MY MEDIC ATION ON TIME Goal 2024-09-16 Patient Goal - STAY ACTIVE T HIS SUMMER Goal 2023-11-22 Patient Goal - CONTINUE TO [...] End Date/Time Encounter Type Admission Type Attending [facility] Care Department Encounter ID Discharge Date Discharge Status Discharge Condition Discharge Reason Percent Goals Met 2025-01-19 00:00:00 2025-03-19 00:00:00 Outpatient RECERTIFIC SNEHAL JACQUES [facility] [id number] 76.92
== END 2025-03-08 14:35 | disposition home or self-care (01) ==
LOC: HO.HMCSH 14:01
PROVIDERS: PCP Internal Medicine; Visit Provider Internal Medicine
DX: G20.A1 Parkinson's disease without dyskinesia, without mention of fluctuations (principal)

== ENCOUNTER → 2025-03-08 14:01 | Outpatient (BNVA) | payer MEDICARE, MEDICAID, SELFPAY | PROVIDERS: PCP Internal Medicine; Visit Provider Internal Medicine | DX: G20.A1 Parkinson's disease without dyskinesia, without mention of fluctuations (principal) | CPT/HCPCS: 96127; 99212 ==